=== PATIENT | female | born 1970 | race Caucasian/White ===

== ENCOUNTER 2022-08-16 11:49 | Outpatient (OUT) | payer OTHER, SELFPAY | END 2022-08-16 11:50 | PROVIDERS: PCP Nurse Practitioner; Visit Provider Nurse Practitioner | DX: G47.33 Obstructive sleep apnea (adult) (pediatric) (principal) | CPT/HCPCS: 95806 ==

== ENCOUNTER 2023-02-25 08:00 | Outpatient (OUT) | payer OTHER, SELFPAY ==
[2023-02-25 08:23] LABS: Basophils Absolute Auto 0.1 10^3/uL (0.0-0.1); Basophils Percent Auto 1.4 % (0.2-2.0); Eosinophils Absolute Auto 0.3 10^3/uL (0.0-0.7); Eosinophils Percent Auto 4.6 % (0.9-7.0); Hematocrit 40.2 % (36.0-48.0); Hemoglobin 12.9 g/dL (12.0-16.0); Immature Granulocytes Abs Auto 0.01 10^3/uL (0.00-0.03); Immature Granulocytes Pct Auto 0.2 % (0.0-0.5); Lymphocytes Absolute Auto 3.1 10^3/uL (1.2-3.8); Lymphocytes Percent Auto 52.4 % (20.5-60.0); Mean Corpuscular HGB Conc 32.1 g/dL (29.9-35.2); Mean Corpuscular Hemoglobin 31.3 pg (26.7-34.0); Mean Corpuscular Volume 97.6 fL (81.0-99.0); Mean Platelet Volume 10.8 fL (9.5-13.5); Monocytes Absolute Auto 0.5 10^3/uL (0.3-0.8); Monocytes Percent Auto 9.2 % (1.7-12.0); Neutrophils Absolute Auto 1.9 10^3/uL (1.4-6.5); Neutrophils Percent Auto 32.2 % (43.0-75.0); Platelet Count 254 10^3/uL (150-450); Red Blood Count 4.12 10^6/uL (4.20-5.40); Red Cell Distribution Width 12.3 % (11.0-15.0); White Blood Count 5.9 10^3/uL (4.0-11.0)
[2023-02-25 08:40] LABS: Bilirubin Urine SMALL (NEGATIVE); Blood Urine NEGATIVE (NEGATIVE); Clarity Urine CLEAR (CLEAR); Color Urine YELLOW (YELLOW); Glucose Urine UA NEGATIVE (NEGATIVE); Ketones Urine TRACE mg/dL (NEGATIVE); Leukocyte Esterase Urine NEGATIVE (NEGATIVE); Nitrite Urine NEGATIVE (NEGATIVE); Protein Urine NEGATIVE (NEG/TRACE); pH Urine 5.5 (5.0-9.0)
[2023-02-25 08:42] LABS: Urine Microscopic Indicated NO
[2023-02-25 09:25] LABS: Alanine Aminotransferase 25 U/L (14-59); Albumin Level 3.6 g/dL (3.4-5.0); Alkaline Phosphatase 71 U/L (46-116); Aspartate Amino Transferase 18 U/L (15-37); BUN Creatinine Ratio 18.7; Bilirubin Total 0.4 mg/dL (0.2-1.0); Calcium 8.9 mg/dL (8.5-10.1); Carbon Dioxide 30.1 mmol/L (21.0-32.0); Chloride 104 mmol/L (98-107); Chol HDL Ratio 2.3; Cholesterol 148 mg/dL (<=200); Estimated GFR (African America >60 (>=60); Estimated GFR (Non-African Ame >60 (>=60); Globulin 3.6 g/dL; Glucose 89 mg/dL (74-106); HDL Cholesterol 63 mg/dL (40-60); Potassium 4.1 mmol/L (3.5-5.1); Sodium 143 mmol/L (136-145); TSH W/ REFLEX FT4 0.525 (0.358-3.740); Total Protein 7.2 g/dL (6.4-8.2); Triglycerides 222 mg/dL (<=150); Uric Acid 3.2 mg/dL (2.6-6.0); VLDL CHOLESTEROL 44.4 mg/dL
== END 2023-02-25 08:01 | disposition home or self-care (01) ==
LOC: LAB 08:03
PROVIDERS: PCP Nurse Practitioner; Visit Provider Nurse Practitioner
DX: I25.10 Atherosclerotic heart disease of native coronary artery without angina pectoris (principal); M10.00 Idiopathic gout, unspecified site; I10 Essential (primary) hypertension; E03.9 Hypothyroidism, unspecified
CPT/HCPCS: 36415; 80053; 80061; 81003; 84443; 84550; 85025

== ENCOUNTER 2023-05-26 13:35 | Outpatient (OUT) | payer OTHER, SELFPAY ==
--- NOTE | 2023-05-26 14:00 | CA_ITS ---
Patient Name: CHRISTIANO MENDOZA MR#: [id number] : 1970 Exam Date: 05/26/2023 Ordering Doctor: DEREK Lester CNP ECHOCARDIOGRAM REPORT PROCEDURE: CA ECHO DOPPLER COMPLETE INDICATIONS: Uncontrolled hypertension, CABGx1, [place] x 2, former smoker COMPARISON: None. DESCRIPTION: COMPLETE ECHOCARDIOGRAM Real-time transthoracic echocardiography with 2D, M-mode, spectral and color flow Doppler performed. QUALITY: 64 , 153#, BSA 1.75 m2, BP 172/90 Technically difficult due to poor acoustics. LEFT VENTRICLE: Normal chamber size. Normal left ventricular wall thickness. LV EF: Global left ventricular systolic function is normal; visually estimated ejection fraction is 60 to 65%. Unable to assess regional wall motion abnormalities; consider contrast study for better delineation of endocardial borders. DIASTOLIC: Normal diastolic function. ATRIAL SEPTUM: Visually appears intact. LEFT ATRIUM: Normal chamber size. RIGHT ATRIUM: Normal chamber size. RIGHT VENTRICLE: Poorly seen. Normal chamber size. Right ventricular systolic function appears reduced. TRICUSPID VALVE: Normal mobility and thickness. No stenosis with trivial regurgitation. MITRAL VALVE: Normal mobility and thickness. No evidence of mitral valve stenosis. There is no mitral annular calcification. No mitral regurgitation. AORTIC VALVE: Normal trileaflet appearance. No visible sclerosis. Normal leaflet mobility. No evidence of aortic valve stenosis. No aortic regurgitation. AORTIC ROOT: Normal diameter and appearance. PULMONIC VALVE: Normal thickness and mobility. No stenosis. No regurgitation. PERICARDIUM: No evidence of pericardial effusion. IVC: Collapses with inspirations. CONCLUSION: 1. Global left ventricular systolic function is normal; visually estimated ejection fraction is 60 to 65% 2. The right ventricle is poorly seen; it appears normal in size with reduced systolic function 3. Normal diastolic function 4. Valves are poorly seen; no significant valvular abnormalities Adult Echocardiography Procedure Report Left Ventricle LVEDD (3.7 - 5.6 cm): 4.37 cm LVESD (2.2 - 4.0 cm): 2.88 cm LVIVS thickness (0.6 - 1.2 cm): 0.96 cm LVPW thickness (0.5 - 1.0 cm): 1.01 cm e': 0.10 m/s E - e': 3.62 LVOT Max Gradient: 2.82 mm[Hg] LVOT Area (cm2): 0.84 m/s Peak Velocity (LVOT): 0.84 m/s Mean Velocity (LVOT): 0.51 m/s LVOT Diameter 1.97 cm Left Atrium LA Volume Index (2D A2C): 24.45 ml/m2 Left Atrium Systolic Dimension: 3.50 cm Mitral Valve MV E to A Ratio: 0.76 Mitral Valve A-Wave Peak Velocity: 0.47 m/s Mitral Valve E-Wave Peak Velocity: 0.36 m/s Right Ventricle Aorta AO Root Diam: 3.06 cm Aortic Valve AoV Area (Peak Te): 2.73 cm2, 2.73 cm2 AoV Area (VTI): 2.56 cm2, 2.56 cm2 Peak Velocity(Antegrade Flow): 0.94 m/s Peak Gradient(Antegrade Flow): 3.53 mm[Hg] Mean Velocity(Antegrade Flow): 0.67 m/s Mean Gradient(Antegrade Flow): 1.98 mm[Hg] Velocity Time Integral: 19.76 cm Tricuspid Valve Pulmonic Valve Peak Velocity: 0.74 m/s Peak Gradient: 2.40 mm[Hg], 2.02 mm[Hg] Right Atrium Dictated by: Nino Zapata M.D. on 05/27/2023 at 14:39 Approved by: Nino Zapata M.D. on 05/27/2023 at 14:43
== END 2023-05-26 13:36 | disposition home or self-care (01) ==
LOC: CARD 13:36
PROVIDERS: PCP Nurse Practitioner; Visit Provider Nurse Practitioner
DX: I25.10 Atherosclerotic heart disease of native coronary artery without angina pectoris (principal); I10 Essential (primary) hypertension
CPT/HCPCS: 93306

== ENCOUNTER 2023-09-02 13:20 | Outpatient (OUT) | payer OTHER, SELFPAY ==
--- NOTE | 2023-09-02 | MR_ITS ---
The [address] [address] Patient Name: CHRISTIANO MENDOZA MRN: [id number] date: 1970 Sex: F Assigned Patient Location: MRI Current Patient Location: Accession/Order Number: [id number] Exam Date: 09/02/2023 14:05 Report Date: 09/05/2023 06:52 At the request of: LESLEY CHRIS Procedure: MR cervical spine wo con MR cervical spine wo con, 09/02/2023 2:05 PM EDT INDICATION: Cervical neck pain with evidence of disc disease COMPARISON: There is no appropriate prior study for comparison. TECHNIQUE: Multiplanar, multisequential MRI images of cervical spine were obtained without contrast. FINDINGS: There is loss of normal physiologic cervical lordosis. The vertebral heights are relatively preserved. The cervicomedullary junction is unremarkable. There is grade 1 anterolisthesis of C3 on C4 and mild retrolisthesis of C5 on C6. No definite signal abnormality within the spinal cord is noted. There are mild disc osteophyte complex associated with uncovertebral joint arthrosis from C3 to T1. No significant neuroforaminal narrowing or canal stenosis at the level of C2-C3 is noted. At the level of C3-C4, there is grade 1 anterolisthesis with severe right and mild left neuroforaminal narrowing and moderate canal stenosis. At the level of C4-C5, there is mild right and moderate left neuroforaminal narrowing and no canal stenosis. At the level of C5-C6, there is moderate bilateral neuroforaminal narrowing and mild canal stenosis. At the level of C6-C7, there is mild right neuroforaminal narrowing and no canal stenosis. Level of C7-T1, there is mild right neuroforaminal narrowing. No canal stenosis. No definite muscular or ligamentous injury is noted. MR/MR cervical spine wo con IMPRESSION: Mild to moderate degenerative changes of the cervical spine in particular at C3-C4 and C5-C6. Electronically authenticated by: BRANDY SAMPSON Date: 09/05/2023 06:52
--- OUTSIDE RECORDS SUMMARY | 2023-09-02 13:42 | XMS_ITS | CCD ---
Author Organization [facility] Care Team Providers Care Manager Infusion Name Role Phone AICHHOLZ, [employer] EQUALIZER LESLEY Admitting Unavailable AICHHOLZ, STAVE [employer] B[employer] EQUALIZER LESLEY Attending Unavailable AICHHOLZ, STAVE [employer] B[employer] EQUALIZER LESLEY Primary Care Unavailable AICHHOLZ, STAVE [employer] B[employer] EQUALIZER LESLEY Consulting Unavailable AICHHOLZ, STAVE AND BOLT EQUALIZER LESLEY Admitting Unavailable AICHHOLZ, STAVE AND BOLT EQUALIZER LESLEY Attending Unavailable AICHHOLZ, STAVE AND BOLT EQUALIZER LESLEY Primary Care Unavailable AICHHOLZ, STAVE AND BOLT EQUALIZER LESLEY Consulting Unavailable AICHHOLZ, STAVE AND BOLT EQUALIZER LESLEY Admitting Unavailable AICHHOLZ, STAVE AND BOLT EQUALIZER LESLEY Attending Unavailable AICHHOLZ, STAVE AND BOLT EQUALIZER LESLEY Primary Care Unavailable AICHHOLZ, STAVE AND B[employer] EQUALIZER LESLEY Consulting Unavailable AICHHOLZ, STAVE AND BOLT EQUALIZER LESLEY Admitting Unavailable AICHHOLZ, STAVE AND BOLT EQUALIZER LESLEY Attending Unavailable AICHHOLZ, STAVE AND BOLT EQUALIZER LESLEY Primary Care Unavailable AICHHOLZ, STAVE [employer] BOLT EQUALIZER LESLEY Consulting Unavailable [place] Attending Unavailable AICHHOLZ, LESLEY Attending Unavailable AICHHOLZ, LESLEY Attending Unavailable AICHHOLZ, LESLEY Attending Unavailable AICHHOLZ, LESLEY Attending Unavailable Allergies Allergy Classification Reported Allergen(s) Allergy Type Date of Onset Reaction(s) Facility (1 source) Desonide Drug Allergy 12-02-2012 [facility] Repository Problems Problem Classification Problem Date Documented Date Episodic/Chronic Coronary atherosclerosis and other heart disease (1 source) Atherosclerotic heart disease of [place] coronary artery without angina pectoris; Translations: [ASHD QAGAN TAYAGUNGIN CA W/O ANGINA PECTORIS] Onset: 01-26-2022 Chronic Disorders of lipid metabolism (5 sources) Pure hyperglyceridemia; Translations: [Hyperlipidemia, unspecified] Onset: 01-26-2022 Chronic Essential hypertension (4 sources) Essential (primary) hypertension; Translations: [ESSENTIAL PRIMARY HYPERTENSION] Onset: 01-22-2022 Chronic Gout and other crystal arthropathies (1 source) Gout, unspecified; Translations: [GOUT UNSPECIFIED] Onset: 01-26-2022 Chronic Malaise and fatigue (1 source) Other fatigue; Translations: [OTHER FATIGUE] Onset: 07-24-2022 Episodic Other nutritional; endocrine; and metabolic disorders (1 source) Overweight; Translations: [OVERWEIGHT] Onset: 07-24-2022 Episodic Thyroid disorders (5 sources) Hypothyroidism, unspecified; Translations: [HYPOTHYROIDISM UNSPECIFIED] Onset: 01-26-2022 Chronic Results Test Name Value Interpretation Reference Range Facil ity Office Visiton 06-08-2023 Follow-up visit [id number] Diane Canas 1970 F Date Provider Department Center 06/08/2023 Kira-MIAH [facility] Family History Problem Relation Age of Onset Coronary artery disease Father Family Status - Relation Status Age at Father Level of Service:03834 AR OFFICE/OUTPATIENT NEW LOW MDM 30 MINUTES Normal [facility] CBC AUTO DIFFon 07-22-2022 BASO # 0.1 103/ul Normal 0.0-0.1 [facility] Comment on above: Performed By: #### C BC #### [facility] [address] [place] [address] Dr. Candy Cortez Basophils/100 WBC (Bld) 0.6 % Normal 0.2-2.0 [facility] Comment on above: Performed By: #### C BC #### [facility] [address] [place] [address] Dr. Candy Cortez EO # 0.3 103/ul Normal 0.0-0.7 [facility] Comment on above: Performed By: #### C BC #### [facility] [address] [place] [address] Dr. Candy Cortez Eosinophils/100 WBC (Bld) 2.8 % Normal 0.9-7.0 [facility] Comment on above: Performed By: #### C BC #### [facility] [address] [place] [address] Dr. Candy Cortez Erythrocyte distribution width (RBC) [Ratio] 11.9 % Normal 11.0-15.0 [facility] Comment on above: Performed By: #### C BC #### [facility] [address] [place] [address] Dr. Candy Cortez Hematocrit (Bld) [Volume fraction] 39.5 % Normal 36.0-48.0 [facility] Comment on above: Performed By: #### C BC #### [facility] [address] [place] [address] Dr. Candy Cortez Hemoglobin (Bld) [Mass/Vol] 12.8 g/dL Normal 12.0-16.0 [facility] Comment on above: Performed By: #### C BC #### [facility] [address] [place] [address] Dr. Candy Cortez IG # 0.04 10e3/ul Critically high 0.00-0.03 [facility] Comment on above: Performed By: #### C BC #### [facility] [address] [place] [address] Dr. Candy Cortez IG % 0.4 % Normal 0.0-0.5 [facility] Comment on above: Performed By: #### C BC #### [facility] [address] [place] [address] Dr. Candy Cortez LYMPH # 3.2 103/ul Normal 1.2-3.8 [facility] Comment on above: Performed By: #### C BC #### [facility] [address] [place] [address] Dr. Candy Cortez Lymphocytes/100 WBC (Bld) 33.9 % Normal 20.5-60.0 [facility] Comment on above: Performed By: #### C BC #### [facility] [address] [place] [address] Dr. Candy Cortez MANUAL DIFF REQ NO Normal [facility] Comment on above: Performed By: #### C BC #### [facility] [address] [place] [address] Dr. Candy Cortez MCH (RBC) [Entitic mass] 31.3 pg Normal 26.7-34.0 [facility] Comment on above: Performed By: #### C BC #### [facility] [address] [place] [address] Dr. Candy Cortez MCHC (RBC) [Mass/Vol] 32.4 g/dL Normal 29.9-35.2 [facility] Comment on above: Performed By: #### C BC #### [facility] [address] [place] [address] Dr. Candy Cortez MCV (RBC) [Entitic vol] 96.6 fL Normal 81.0-99.0 [facility] Comment on above: Performed By: #### C BC #### [facility] [address] [place] [address] Dr. Candy Cortez MONO # 0.8 103/ul Normal 0.3-0.8 [facility] Comment on above: Performed By: #### C BC #### [facility] [address] [place] [address] Dr. Candy Cortez Monocytes/100 WBC (Bld) 8.3 % Normal 1.7-12.0 [facility] Comment on above: Performed By: #### C BC #### [facility] [address] [place] [address] Dr. Candy Cortez NEUT # 5.1 103/ul Normal 1.4-6.5 [facility] Comment on above: Performed By: #### C BC #### [facility] [address] [place] [address] Dr. Candy Cortez Neutrophils/100 WBC (Bld) 54.0 % Normal 43.0-75.0 [facility] Comment on above: Performed By: #### C BC #### [facility] [address] [place] [address] Dr. Candy Cortez Platelet mean volume (Bld) [Entitic vol] 11.6 fL Normal 9.5-13.5 [facility] Comment on above: Performed By: #### C BC #### [facility] [address] [place] [address] Dr. Candy Cortez PLT 258 103/ul Normal 150-450 [facility] Comment on above: Performed By: #### C BC #### [facility] [address] [place] [address] Dr. Candy Cortez RBC 4.09 106/ul Critically low 4.20-5.40 [facility] Comment on above: Performed By: #### C BC #### [facility] [address] [place] [address] Dr. Candy Cortez WBC 9.4 103/ul Normal 4.0-11.0 [facility] Comment on above: Performed By: #### C BC #### [facility] [address] [place] [address] Dr. Candy Cortez FREE T4on 07-22-2022 Free T4 [Mass/Vol] 0.91 ng/dL Normal 0.76-1.46 [facility] Comment on above: Performed By: #### T SH, URIC, CMP, LIPID #### [facility] [address] [place] [address] Dr. Candy Cortez IRONon 07-22-2022 Iron [Mass/Vol] 106.0 ug/dL Normal 50.0-170.0 [facility] Comment on above: Performed By: #### T SH, URIC, CMP, LIPID #### [facility] [address] [place] [address] Dr. Candy Cortez PROF 14(COMP METB)on 023 Albumin [Mass/Vol] 3.7 g/dL Normal 3.4-5.0 [facility] Comment on above: Performed By: #### T SH, CMP #### [facility] [address] [place] [address] Dr. Candy Cortez Albumin/Globulin [Mass ratio] 1.0 {ratio} Normal [facility] Comment on above: Performed By: #### T SH, CMP #### [facility] [address] [place] [address] Dr. Candy Cortez ALP [Catalytic activity/Vol] 84 U/L Normal 46-116 [facility] Comment on above: Performed By: #### T SH, CMP #### [facility] [address] [place] [address] Dr. Candy Cortez ALT [Catalytic activity/Vol] 36 U/L Normal 14-59 [facility] Comment on above: Performed By: #### T SH, CMP #### [facility] [address] [address] [address] Candy Cortez Anion gap [Moles/Vol] 11.6 mmol/L Normal [facility] Comment on above: Performed By: #### T SH, CMP #### [facility] [address] [address] [address] Candy Cortez AST [Catalytic activity/Vol] 30 U/L Normal 15-37 [facility] Comment on above: Performed By: #### T SH, CMP #### [facility] [address] [address] [address] Candy Cortez Bilirubin [Mass/Vol] 0.4 mg/dL Normal 0.2-1.0 [facility] Comment on above: Performed By: #### T SH, CMP #### [facility] [address] [place] [address] Dr. Candy Cortez Calcium [Mass/Vol] 9.4 mg/dL Normal 8.5-10.1 [facility] Comment on above: Performed By: #### T SH, CMP #### [facility] [address] [address] [address] Candy Cortez Chloride [Moles/Vol] 105 mmol/L Normal 98-107 [facility] Comment on above: Performed By: #### T SH, CMP #### [facility] [address] [place] [address] Dr. Candy Cortez CO2 [Moles/Vol] 29.2 mmol/L Normal 21.0-32.0 [facility] Comment on above: Performed By: #### T SH, CMP #### [facility] [address] [place] [address] Dr. Candy Cortez Creatinine [Mass/Vol] 0.78 mg/dL Normal 0.55-1.02 [facility] Comment on above: Performed By: #### T SH, CMP #### [facility] [address] [place] [address] Dr. Candy Cortez EGFR-AF SAUDI [place]AB[place] >60 Normal >=60 [facility] Comment on above: Performed By: #### T SH, CMP #### [facility] [address] [address] [address] Candy Cortez EGFR-NON AF [place]UDI [place]AB[place] >60 Normal >=60 [facility] Comment on above: Performed By: #### T SH, CMP #### [facility] [address] [address] [address] Candy Cortez Globulin (S) [Mass/Vol] 3.8 g/dL Normal [facility] Comment on above: Performed By: #### T SH, CMP #### [facility] [address] [address] [address] Candy Cortez Glucose [Mass/Vol] 95 mg/dL Normal 74-106 [facility] Comment on above: Performed By: #### T SH, CMP #### [facility] [address] [place] [address] Dr. Candy Cortez Potassium [Moles/Vol] 4.8 mmol/L Normal 3.5-5.1 [facility] Comment on above: Performed By: #### T SH, CMP #### [facility] [address] [place] [address] Dr. Candy Cortez Protein [Mass/Vol] 7.5 g/dL Normal 6.4-8.2 [facility] Comment on above: Performed By: #### T SH, CMP #### [facility] [address] [place] [address] Dr. Candy Cortez Sodium [Moles/Vol] 141 mmol/L Normal 136-145 [facility] Comment on above: Performed By: #### T SH, CMP #### [facility] [address] [place] [address] Dr. Candy Cortez Urea nitrogen [Mass/Vol] 13.0 mg/dL Normal 7.0-18.0 [facility] Comment on above: Performed By: #### T SH, CMP #### [facility] [address] [place] [address] Dr. Candy Cortez Urea nitrogen/Creatinin e [Mass ratio] 16.7 mg/mg Normal [facility] Comment on above: Performed By: #### T SH, CMP #### [facility] [address] [address] [address] Candy Cortez TSHon 07-22-2022 TSH 0.818 uIU/mL Normal 0.358-3.740 [facility] Comment on above: Performed By: #### T SH, CMP #### [facility] [address] [place] [address] Dr. Candy Cortez UA RANDOM W/MICROSCOPICon BACTERIA NONE SEEN Normal NONE SEEN [facility] Comment on above: Performed By: #### U AMIC #### [facility] [address] [place] [address] Dr. Candy Cortez Bilirubin Ql (U) Negative Normal NEGATIVE [facility] Comment on above: Performed By: #### U AMIC #### [facility] [address] [place] [address] Dr. Candy Cortez CAST NONE SEEN Normal NONE SEEN [facility] Comment on above: Performed By: #### U AMIC #### [facility] [address] [place] [address] Dr. Candy Cortez Clarity (U) CLEAR Normal CLEAR [facility] Comment on above: Performed By: #### U AMIC #### [facility] [address] [place] [address] Dr. Candy Cortez Color (U) LT. YELLOW Normal YELLOW [facility] Comment on above: Performed By: #### U AMIC #### [facility] [address] [address] [address] Candy Cortez Crystals LM Nom (Urine sed) NONE SEEN Normal NONE SEEN [facility] Comment on above: Performed By: #### U AMIC #### [facility] [address] [place] [address] Dr. Candy Cortez Epithelial cells LM Ql (Urine sed) RARE Normal NONE SEEN /RARE [facility] Comment on above: Performed By: #### U AMIC #### [facility] [address] [place] [address] Dr. Candy Cortez Glucose Ql (U) Negative Normal NEGATIVE [facility] Comment on above: Performed By: #### U AMIC #### [facility] [address] [address] [address] Candy Cortez Hemoglobin Ql (U) Negative Normal NEGATIVE [facility] Comment on above: Performed By: #### U AMIC #### [facility] [address] [address] [address] Candy Cortez Ketones Ql (U) Negative Normal NEGATIVE [facility] Comment on above: Performed By: #### U AMIC #### [facility] [address] [address] [address] Candy Cortez LEUKOCYTES Negative Normal NEGATIVE [facility] Comment on above: Performed By: #### U AMIC #### [facility] [address] [address] [address] Candy Cortez MUCOUS NONE SEEN Normal NONE SEEN [facility] Comment on above: Performed By: #### U AMIC #### [facility] [address] [address] [address] Candy Cortez Nitrite Ql (U) Negative Normal NEGATIVE [facility] Comment on above: Performed By: #### U AMIC #### [facility] [address] [address] [address] Candy Cortez pH (U) 7.0 [pH] Normal 5-9 [facility] Comment on above: Performed By: #### U AMIC #### [facility] [address] [address] [address] Candy Cortez RBC 0-2 Normal 0-2 [facility] Comment on above: Performed By: #### U AMIC #### [facility] [address] [address] [address] Candy Cortez SPEC GRAVITY <=1.005 Abnormal 1.005-<=1.025 [facility] Comment on above: Performed By: #### U AMIC #### [facility] [address] [address] [address] Candy Cortez UA PROTEIN Negative Normal NEGATIVE/ TRACE [facility] Comment on above: Performed By: #### U AMIC #### [facility] [address] [place] [address] Dr. Candy Cortez Urobilinogen Qn (U) 0.2 {Nicko'U}/dL Normal 0.2 - 1.0 [facility] Comment on above: Performed By: #### U AMIC #### [facility] [address] [address] [address] Candy Cortez WBC 0-2 Abnormal NONE SEEN [facility] Comment on above: Performed By: #### U AMIC #### [facility] [address] [place] [address] Dr. Candy Cortez VITAMIN B12on 07-22-2022 Cobalamin (Vitamin B12) [Mass/Vol] 201.0 pg/mL Normal 193.0-986.0 [facility] Comment on above: Performed By: #### T SH, URIC, CMP, LIPID #### [facility] [address] [place] [address] Dr. Candy Cortez VITAMIN D 25 OHon 07-22-2022 VIT D 25-OH 14.6 ng/mL Normal [facility] Comment on above: Performed By: #### T SH, URIC, CMP, LIPID #### [facility] [address] [place] [address] Dr. Candy Cortez VIT D RANGES SEE BELOW Normal [facility] Comment on above: Result Comment: <20 ng/mL Vit D deficient 20 - <30 ng/mL Vit D insufficient 30 - 100 ng/mL Vit D sufficient >100 ng/mL Potential Toxicity Performed By: #### T SH, URIC, CMP, LIPID #### [facility] [address] [place] [address] Dr. Candy Cortez LIPID PROFILEon 07-05-2022 CHOL-HDL RATIO NORM SEE BELOW Normal [facility] Comment on above: Result Comment: 3.3 - 4.4 LOW RISK 4.4 - 7.1 AVERAGE RISK 7.1 - 11.0 MODERATE RISK >11.0 HIGH RISK Performed By: #### T SH, URIC, CMP, LIPID #### [facility] [address] [place] [address] Dr. Candy Cortez Cholesterol [Mass/Vol] 162 mg/dL Normal <=200 [facility] Comment on above: Performed By: #### T SH, URIC, CMP, LIPID #### [facility] [address] [address] [address] Candy Cortez Cholesterol in HDL [Mass/Vol] 74 mg/dL Critically high 40-60 [facility] Comment on above: Performed By: #### T SH, URIC, CMP, LIPID #### [facility] [address] [address] [address] Candy Cortez Cholesterol in LDL [Mass/Vol] 54.8 mg/dL Normal [facility] Comment on above: Performed By: #### T SH, URIC, CMP, LIPID #### [facility] [address] [place] [address] Dr. Candy Cortez Cholesterol.total/ Cholesterol in HDL [Mass ratio] 2.2 {ratio} Normal [facility] Comment on above: Performed By: #### T SH, URIC, CMP, LIPID #### [facility] [address] [address] [address] Candy Cortez HDL NORMAL > or = 60 mg/dl - LOW CARDIOVASCULAR RISK <40 mg/dl - HIGH CARDIOVASCULAR RISK Normal [facility] Comment on above: Performed By: #### T SH, URIC, CMP, LIPID #### [facility] [address] [place] [address] Dr. Candy Cortez LDL CALC NORMAL SEE BELOW Normal [facility] Comment on above: Result Comment: <100 mg/dl OPTIMAL 100 - 129 mg/dl NEAR OR ABOVE OPTIMAL 130 - 159 mg/dl BORDERLINE HIGH 160 - 189 mg/dl HIGH >190 mg/dl VERY HIGH Performed By: #### T SH, URIC, CMP, LIPID #### [facility] [address] [address] [address] Candy Cortez Triglyceride [Mass/Vol] 166 mg/dL Critically high <=150 [facility] Comment on above: Performed By: #### T SH, URIC, CMP, LIPID #### [facility] [address] [address] [address] Candy Cortez VLDL CALC 33.2 mg/dL Normal [facility] Comment on above: Performed By: #### T SH, URIC, CMP, LIPID #### [facility] [address] [address] [address] Candy Flower 07-05-2022 AST [Catalytic activity/Vol] 32 U/L Normal 15-37 [facility] Comment on above: Performed By: #### T SH, URIC, CMP, LIPID #### [facility] [address] [address] [address] Candy Colby 07-05-2022 ALT [Catalytic activity/Vol] 52 U/L Normal 14-59 [facility] Comment on above: Performed By: #### T SH, URIC, CMP, LIPID #### [facility] [address] [place] [address] Dr. Candy Cortez LIPID PROFILEon 05-10-2022 CHOL-HDL RATIO NORM SEE BELOW Normal [facility] Comment on above: Result Comment: 3.3 - 4.4 LOW RISK 4.4 - 7.1 AVERAGE RISK 7.1 - 11.0 MODERATE RISK >11.0 HIGH RISK Performed By: #### T SH, URIC, CMP, LIPID #### [facility] [address] [address] [address] Candy Cortez Cholesterol [Mass/Vol] 178 mg/dL Normal <=200 [facility] Comment on above: Performed By: #### T SH, URIC, CMP, LIPID #### [facility] [address] [address] [address] Candy Cortez Cholesterol in HDL [Mass/Vol] 80 mg/dL Critically high 40-60 [facility] Comment on above: Performed By: #### T SH, URIC, CMP, LIPID #### [facility] [address] [address] [address] Candy Cortez Cholesterol in LDL [Mass/Vol] 43.4 mg/dL Normal [facility] Comment on above: Performed By: #### T SH, URIC, CMP, LIPID #### [facility] [address] [address] [address] Candy Cortez Cholesterol.total/ Cholesterol in HDL [Mass ratio] 2.2 {ratio} Normal [facility] Comment on above: Performed By: #### T SH, URIC, CMP, LIPID #### [facility] [address] [address] [address] Candy Cortez HDL NORMAL > or = 60 mg/dl - LOW CARDIOVASCULAR RISK <40 mg/dl - HIGH CARDIOVASCULAR RISK Normal [facility] Comment on above: Performed By: #### T SH, URIC, CMP, LIPID #### [facility] [address] [address] [address] Candy Cortez LDL CALC NORMAL SEE BELOW Normal [facility] Comment on above: Result Comment: <100 mg/dl OPTIMAL 100 - 129 mg/dl NEAR OR ABOVE OPTIMAL 130 - 159 mg/dl BORDERLINE HIGH 160 - 189 mg/dl HIGH >190 mg/dl VERY HIGH Performed By: #### T SH, URIC, CMP, LIPID #### [facility] [address] [place] [address] Dr. Candy Cortez Triglyceride [Mass/Vol] 273 mg/dL Critically high <=150 [facility] Comment on above: Performed By: #### T SH, URIC, CMP, LIPID #### [facility] [address] [place] [address] Dr. Candy Cortez VLDL CALC 54.6 mg/dL Normal [facility] Comment on above: Performed By: #### T SH, URIC, CMP, LIPID #### [facility] [address] [place] [address] Dr. Candy Cortez CBC AUTO DIFFon 01-22-2022 BASO # 0.1 103/ul Normal 0.0-0.1 [facility] Comment on above: Performed By: #### C BC #### [facility] [address] [place] [address] Dr. Candy Cortez Basophils/100 WBC (Bld) 1.2 % Normal 0.2-2.0 [facility] Comment on above: Performed By: #### C BC #### [facility] [address] [place] [address] Dr. aCndy Cortez EO # 0.2 103/ul Normal 0.0-0.7 [facility] Comment on above: Performed By: #### C BC #### [facility] [address] [place] [address] Dr. Candy Cortez Eosinophils/100 WBC (Bld) 2.8 % Normal 0.9-7.0 [facility] Comment on above: Performed By: #### C BC #### [facility] [address] [place] [address] Dr. Candy Cortez Erythrocyte distribution width (RBC) [Ratio] 12.2 % Normal 11.0-15.0 [facility] Comment on above: Performed By: #### C BC #### [facility] [address] [place] [address] Dr. Candy Cortez Hematocrit (Bld) [Volume fraction] 41.0 % Normal 36.0-48.0 [facility] Comment on above: Performed By: #### C BC #### [facility] [address] [place] [address] Dr. Candy Cortez Hemoglobin (Bld) [Mass/Vol] 13.6 g/dL Normal 12.0-16.0 [facility] Comment on above: Performed By: #### C BC #### [facility] [address] [place] [address] Dr. Candy Cortez IG # 0.00 10e3/ul Normal 0.00-0.03 [facility] Comment on above: Performed By: #### C BC #### [facility] [address] [place] [address] Dr. Candy Cortez IG % 0.0 % Normal 0.0-0.5 [facility] Comment on above: Performed By: #### C BC #### [facility] [address] [place] [address] Dr. Candy Cortez LYMPH # 2.7 103/ul Normal 1.2-3.8 [facility] Comment on above: Performed By: #### C BC #### [facility] [address] [place] [address] Dr. Candy Cortez Lymphocytes/100 WBC (Bld) 47.5 % Normal 20.5-60.0 [facility] Comment on above: Performed By: #### C BC #### [facility] [address] [place] [address] Dr. Candy Cortez MANUAL DIFF REQ NO Normal [facility] Comment on above: Performed By: #### C BC #### [facility] [address] [place] [address] Dr. Candy Cortez MCH (RBC) [Entitic mass] 32.5 pg Normal 26.7-34.0 [facility] Comment on above: Performed By: #### C BC #### [facility] [address] [place] [address] Dr. Candy Cortez MCHC (RBC) [Mass/Vol] 33.2 g/dL Normal 29.9-35.2 [facility] Comment on above: Performed By: #### C BC #### [facility] [address] [place] [address] Dr. Candy Cortez MCV (RBC) [Entitic vol] 97.9 fL Normal 81.0-99.0 [facility] Comment on above: Performed By: #### C BC #### [facility] [address] [place] [address] Dr. Candy Cortez MONO # 0.5 103/ul Normal 0.3-0.8 [facility] Comment on above: Performed By: #### C BC #### [facility] [address] [place] [address] Dr. Candy Cortez Monocytes/100 WBC (Bld) 8.4 % Normal 1.7-12.0 [facility] Comment on above: Performed By: #### C BC #### [facility] [address] [place] [address] Dr. Candy Cortez NEUT # 2.3 103/ul Normal 1.4-6.5 [facility] Comment on above: Performed By: #### C BC #### [facility] [address] [place] [address] Dr. Candy Cortez Neutrophils/100 WBC (Bld) 40.1 % Critically low 43.0-75.0 [facility] Comment on above: Performed By: #### C BC #### [facility] [address] [place] [address] Dr. Candy Cortez Platelet mean volume (Bld) [Entitic vol] 11.5 fL Normal 9.5-13.5 [facility] Comment on above: Performed By: #### C BC #### [facility] [address] [place] [address] Dr. Candy Cortez PLT 305 103/ul Normal 150-450 [facility] Comment on above: Performed By: #### C BC #### [facility] [address] [place] [address] Dr. Candy Cortez RBC 4.19 106/ul Critically low 4.20-5.40 [facility] Comment on above: Performed By: #### C BC #### [facility] [address] [place] [address] Dr. Candy Cortez WBC 5.7 103/ul Normal 4.0-11.0 [facility] Comment on above: Performed By: #### C BC #### [facility] [address] [place] [address] Dr. Candy Cortez FREE T4on 01-22-2022 Free T4 [Mass/Vol] 0.78 ng/dL Normal 0.76-1.46 [facility] Comment on above: Performed By: #### T SH, URIC, CMP, LIPID #### [facility] [address] [place] [address] Dr. Candy Cortez LIPID PROFILEon 01-22-2022 CHOL-HDL RATIO NORM SEE BELOW Normal [facility] Comment on above: Result Comment: 3.3 - 4.4 LOW RISK 4.4 - 7.1 AVERAGE RISK 7.1 - 11.0 MODERATE RISK >11.0 HIGH RISK Performed By: #### T SH, URIC, CMP, LIPID #### [facility] [address] [place] [address] Dr. Candy Cortez Cholesterol [Mass/Vol] 167 mg/dL Normal <=200 [facility] Comment on above: Performed By: #### T SH, URIC, CMP, LIPID #### [facility] [address] [place] [address] Dr. Candy Cortez Cholesterol in HDL [Mass/Vol] 64 mg/dL Critically high 40-60 [facility] Comment on above: Performed By: #### T SH, URIC, CMP, LIPID #### [facility] [address] [address] [address] Candy Cortez Cholesterol in LDL [Mass/Vol] 43.6 mg/dL Normal [facility] Comment on above: Performed By: #### T SH, URIC, CMP, LIPID #### [facility] [address] [address] [address] Candy Cortez Cholesterol.total/ Cholesterol in HDL [Mass ratio] 2.6 {ratio} Normal [facility] Comment on above: Performed By: #### T SH, URIC, CMP, LIPID #### [facility] [address] [place] [address] Dr. Candy Cortez HDL NORMAL > or = 60 mg/dl - LOW CARDIOVASCULAR RISK <40 mg/dl - HIGH CARDIOVASCULAR RISK Normal [facility] Comment on above: Performed By: #### T SH, URIC, CMP, LIPID #### [facility] [address] [place] [address] Dr. Candy Cortez LDL CALC NORMAL SEE BELOW Normal [facility] Comment on above: Result Comment: <100 mg/dl OPTIMAL 100 - 129 mg/dl NEAR OR ABOVE OPTIMAL 130 - 159 mg/dl BORDERLINE HIGH 160 - 189 mg/dl HIGH >190 mg/dl VERY HIGH Performed By: #### T SH, URIC, CMP, LIPID #### [facility] [address] [place] [address] Dr. Candy Crotez Triglyceride [Mass/Vol] 297 mg/dL Critically high <=150 [facility] Comment on above: Performed By: #### T SH, URIC, CMP, LIPID #### [facility] [address] [place] [address] Dr. Candy Cortez VLDL CALC 59.4 mg/dL Normal [facility] Comment on above: Performed By: #### T SH, URIC, CMP, LIPID #### [facility] [address] [place] [address] Dr. Candy Cortez PROF 14(COMP METB)on 022 Albumin [Mass/Vol] 3.6 g/dL Normal 3.4-5.0 [facility] Comment on above: Performed By: #### T SH, URIC, CMP, LIPID #### [facility] [address] [address] [address] Candy Cortez Albumin/Globulin [Mass ratio] 1.0 {ratio} Normal [facility] Comment on above: Performed By: #### T SH, URIC, CMP, LIPID #### [facility] [address] [address] [address] Candy Cortez ALP [Catalytic activity/Vol] 79 U/L Normal 46-116 [facility] Comment on above: Performed By: #### T SH, URIC, CMP, LIPID #### [facility] [address] [place] [address] Dr. Canyd Cortez ALT [Catalytic activity/Vol] 23 U/L Normal 14-59 [facility] Comment on above: Performed By: #### T SH, URIC, CMP, LIPID #### [facility] [address] [address] [address] Candy Cortez Anion gap [Moles/Vol] 9.7 mmol/L Normal [facility] Comment on above: Performed By: #### T SH, URIC, CMP, LIPID #### [facility] [address] [place] [address] Dr. Candy Cortez AST [Catalytic activity/Vol] 20 U/L Normal 15-37 [facility] Comment on above: Performed By: #### T SH, URIC, CMP, LIPID #### [facility] [address] [place] [address] Dr. Candy Cortez Bilirubin [Mass/Vol] 0.4 mg/dL Normal 0.2-1.0 [facility] Comment on above: Performed By: #### T SH, URIC, CMP, LIPID #### [facility] [address] [place] [address] Dr. Candy Cortez Calcium [Mass/Vol] 9.1 mg/dL Normal 8.5-10.1 [facility] Comment on above: Performed By: #### T SH, URIC, CMP, LIPID #### [facility] [address] [address] [address] Candy Cortez Chloride [Moles/Vol] 103 mmol/L Normal 98-107 [facility] Comment on above: Performed By: #### T SH, URIC, CMP, LIPID #### [facility] [address] [address] [address] Candy Cortez CO2 [Moles/Vol] 29.0 mmol/L Normal 21.0-32.0 [facility] Comment on above: Performed By: #### T SH, URIC, CMP, LIPID #### [facility] [address] [address] [address] Candy Cortez Creatinine [Mass/Vol] 0.72 mg/dL Normal 0.55-1.02 [facility] Comment on above: Performed By: #### T SH, URIC, CMP, LIPID #### [facility] [address] [address] [address] Candy Cortez EGFR-AF SAUDI ARABIAN >60 Normal >=60 [facility] Comment on above: Performed By: #### T SH, URIC, CMP, LIPID #### [facility] [address] [address] [address] Candy Cortez EGFR-NON AF SAUDI ARABIAN >60 Normal >=60 [facility] Comment on above: Performed By: #### T SH, URIC, CMP, LIPID #### [facility] [address] [address] [address] Candy Cortez Globulin (S) [Mass/Vol] 3.7 g/dL Normal [facility] Comment on above: Performed By: #### T SH, URIC, CMP, LIPID #### [facility] [address] [address] [address] Candy Cortez Glucose [Mass/Vol] 93 mg/dL Normal 74-106 [facility] Comment on above: Performed By: #### T SH, URIC, CMP, LIPID #### [facility] [address] [address] [address] Candy Cortez Potassium [Moles/Vol] 4.7 mmol/L Normal 3.5-5.1 [facility] Comment on above: Performed By: #### T SH, URIC, CMP, LIPID #### [facility] [address] [place] [address] Dr. Candy Cortez Protein [Mass/Vol] 7.3 g/dL Normal 6.4-8.2 [facility] Comment on above: Performed By: #### T SH, URIC, CMP, LIPID #### [facility] [address] [place] [address] Dr. Candy Cortez Sodium [Moles/Vol] 137 mmol/L Normal 136-145 [facility] Comment on above: Performed By: #### T SH, URIC, CMP, LIPID #### [facility] [address] [place] [address] Dr. Candy Cortez Urea nitrogen [Mass/Vol] 12.0 mg/dL Normal 7.0-18.0 [facility] Comment on above: Performed By: #### T SH, URIC, CMP, LIPID #### [facility] [address] [place] [address] Dr. Candy Cortez Urea nitrogen/Creatinin e [Mass ratio] 16.7 mg/mg Normal [facility] Comment on above: Performed By: #### T SH, URIC, CMP, LIPID #### [facility] [address] [place] [address] Dr. Candy Cortez TSHon 01-22-2022 TSH 0.748 uIU/mL Normal 0.358-3.740 [facility] Comment on above: Performed By: #### T SH, URIC, CMP, LIPID #### [facility] [address] [place] [address] Dr. Candy Cortez UA RANDOM W/MICROSCOPICon BACTERIA NONE SEEN Normal NONE SEEN [facility] Comment on above: Performed By: #### U AMIC #### [facility] [address] [place] [address] Dr. Candy Cortez Bilirubin Ql (U) Negative Normal NEGATIVE [facility] Comment on above: Performed By: #### U AMIC #### [facility] [address] [address] [address] Candy Cortez CAST NONE SEEN Normal NONE SEEN [facility] Comment on above: Performed By: #### U AMIC #### [facility] [address] [address] [address] Candy Cortez Clarity (U) CLEAR Normal CLEAR [facility] Comment on above: Performed By: #### U AMIC #### [facility] [address] [address] [address] Candy Cortez Color (U) LT. YELLOW Normal YELLOW [facility] Comment on above: Performed By: #### U AMIC #### [facility] [address] [address] [address] Candy Cortez Crystals LM Nom (Urine sed) NONE SEEN Normal NONE SEEN [facility] Comment on above: Performed By: #### U AMIC #### [facility] [address] [place] [address] Dr. Candy Cortez Epithelial cells LM Ql (Urine sed) RARE Normal NONE SEEN /RARE [facility] Comment on above: Performed By: #### U AMIC #### [facility] [address] [place] [address] Dr. Candy Cortez Glucose Ql (U) Negative Normal NEGATIVE [facility] Comment on above: Performed By: #### U AMIC #### [facility] [address] [place] [address] Dr. Candy Cortez Hemoglobin Ql (U) Negative Normal NEGATIVE [facility] Comment on above: Performed By: #### U AMIC #### [facility] [address] [place] [address] Dr. Candy Cortez Ketones Ql (U) Negative Normal NEGATIVE [facility] Comment on above: Performed By: #### U AMIC #### [facility] [address] [place] [address] Dr. Candy Cortez LEUKOCYTES Negative Normal NEGATIVE [facility] Comment on above: Performed By: #### U AMIC #### [facility] [address] [place] [address] Dr. Candy Cortez MUCOUS TRACE Abnormal NONE SEEN [facility] Comment on above: Performed By: #### U AMIC #### [facility] [address] [address] [address] Candy Cortez Nitrite Ql (U) Negative Normal NEGATIVE [facility] Comment on above: Performed By: #### U AMIC #### [facility] [address] [address] [address] Candy Cortez pH (U) 7.0 [pH] Normal 5-9 [facility] Comment on above: Performed By: #### U AMIC #### [facility] [address] [address] [address] Candy Cortez RBC NONE SEEN Abnormal 0-2 [facility] Comment on above: Performed By: #### U AMIC #### [facility] [address] [place] [address] Dr. Candy Cortez SPEC GRAVITY 1.020 Normal 1.005-<=1.025 [facility] Comment on above: Performed By: #### U AMIC #### [facility] [address] [place] [address] Dr. Candy Cortez UA PROTEIN Negative Normal NEGATIVE/ TRACE [facility] Comment on above: Performed By: #### U AMIC #### [facility] [address] [place] [address] Dr. Candy Cortez Urobilinogen Qn (U) 0.2 {Nicko'U}/dL Normal 0.2 - 1.0 [facility] Comment on above: Performed By: #### U AMIC #### [facility] [address] [place] [address] Dr. Candy Cortez WBC NONE SEEN Normal NONE SEEN [facility] Comment on above: Performed By: #### U AMIC #### [facility] [address] [place] [address] Dr. Candy Cortez URIC ACID SERUMon 01-22-2022 Urate [Mass/Vol] 3.1 mg/dL Normal 2.6-6.0 [facility] Comment on above: Performed By: #### T SH, URIC, CMP, LIPID #### [facility] [address] [place], [place] [address] Dr. Candy Cortez Encounters Encounter Date Encounter Type Care Provider Facility Start: 07-11-2023 End: 07-11-2023 ambulatory LESLEY AICHHOLZ Not Available Start: 06-08-2023 End: 06-08-2023 ambulatory [facility] Start: 05-30-2023 End: 05-30-2023 ambulatory LESLEY AICHHOLZ Not Available Start: 05-10-2023 End: 05-10-2023 ambulatory LESLEY AICHHOLZ Not Available Start: 02-07-2023 End: 02-07-2023 ambulatory LESLEY AICHHOLZ Not Available Start: 07-22-2022 End: 07-23-2022 ambulatory [employer] LESLEY AICHHOLZ Facility:[facility] Start: 07-05-2022 End: 07-06-2022 ambulatory [employer] LESLEY AICHHOLZ Facility:[facility] Start: 05-10-2022 End: 05-11-2022 ambulatory [employer] LESLEY AICHHOLZ Facility:[facility] Start: 01-22-2022 End: 01-23-2022 ambulatory [employer] LESLEY AICHHOLZ Facility:[facility] Payers Date Payer Category Payer Unknown [id number] 2.16.84 [id number] 1970 Unknown [id number] 2.16.84 [id number] 1971 Unknown [id number] 2.16.84 [id number] 1971 Unknown [id number] 2.16.84 [id number] 1971 Unknown [id number] 2.16.84 [id number] 1971 Unknown [id number] 2.16.84 [id number] 1971 Unknown [id number] 2.16.84 [id number] 1971 Unknown [id number] 1959 Unknown [id number] Progress note 06-08-2023 Note Date & Type Note Facility 06-08-2023 Note [facility] Cardiology Clinic Note Chief Complaint: New patient here to re-establish care. She was last seen in Mar 2017. Had echo 2 weeks ago, and routine labs in Feb 2023. She quit smoking 03/14/2023! C/o intermittent chest pain, SOB, and fatigue. HPI: Diane Canas is a 53 y.o. female who I performed a cardiac catheterization on when we were both 40 years old! Looking back at records, and talking to her, it was probable coronary vasospasm that led to a single-vessel left internal mammary artery graft to the left anterior descending. 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 There was superimposed spasm. She has been doing well since we last saw her. She has no anginal chest pain. She is currently being worked up for right neck pain that radiates to her right arm particularly when she is stressed. This sounds musculoskeletal and probably related to cervical disc disease. She denies exertional chest pain or worsening shortness of breath. No orthopnea, no paroxysmal failure dyspnea, no lower extremity edema. Family history: Her father suddenly at the age of 56. He has no documented history of myocardial infarction. Both her parents have hypertension. She is and between her and her they have 6 children. The eldest unfortunately committed suicide. She has 15 grandchildren. Cardiology ROS: Review of Systems Constitutional: Positive for malaise/fatigue. Cardiovascular: Positive for chest pain and dyspnea on exertion. Respiratory: Positive for shortness of breath. All other systems reviewed and are negative. Past Medical History She has no past medical history on file. Surgical History She has no past surgical history on file. Social History She has no history on file for tobacco use, alcohol use, and drug use. Family History No family history on file. Allergies Patient has no allergy information on record. Medications No current outpatient medications on file. Last Recorded Vitals BP (!) 138/94 (BP Location: Left arm, Patient Position: Sitting) Pulse 69 Ht 1.626 m (5' 4 ) Wt 72.1 kg (159 lb) SpO2 99% BMI 27.29 kg/m??? Physical Examination: GENERAL: alert and oriented x3, well developed, in no acute distress. HEAD: atraumatic, normocephalic. EYES: ANGELIQUE, EOMI. NECK: trachea midline, no JVD present, no carotid bruits present. CARDIAC: S1, S2 present. RRR. No murmur, rubs, or gallops. RESPIRATORY: CTAB, no increased effort of breathing, no rales, rhonchi, or wheezing. ABDOMEN: soft, nontender, nondistended. EXTREMITIES: no lower extremity edema, peripheral pulses are 2+ bilaterally. No rash/skin discoloration present. NEURO: strength/sensation equal and symmetric in bilateral upper and lower extremities. PSYCH: appropriate mood, affect, and judgement. INVESTIGATIONS: Labs 02/25/2023: LFTs are normal Cholesterol is 148, triglycerides are 222, LDL is 41, HDL is 63 Cardiac catheterization 05/14/2011 Final impressions: 1. Moderate, nonhemodynamically significant stenosis of the left anterior descending coronary artery 2. Evidence of coronary spasm resolved by intracoronary vasodilator 3. 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 Moderate systemic hypertension Recommendations: 1. Aggressive cardiovascular factor modification 2. Optimization medical management; add calcium channel jose plus or minus nitrates given probable coronary spasm 3. Consider future percutaneous revascularization of the left anterior descending versus redo coronary artery bypass grafting as clinically appropriate 4. Further recommendations deferred to the inpatient service Stress test 05/23/2021: Exercise stress test: Conclusion: Normal myocardial perfusion scan with no reversible ischemia Normal exercise test Echocardiogram 05/26/2023: Conclusion: 1. Global left ventricular systolic function is normal; visually estimated ejection fraction is 60 to 65% 2. Right ventricle is poorly seen; it appears normal in size with reduced systolic function 3. Normal diastolic function 4. 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 [facility] Summary Purpose Family History No Family History Records FoundNo Family History Records FoundNo Family History Records Found Advance Directives No Advanced Directives Records FoundNo Advanced Directives Records FoundNo Advanced Directives Records Found Additional Source Comments INFORMATION SOURCE (unrecogn ized section and content) DATE CREATED AUTHOR 07/25/2022 [facility] DATE CREATED AUTHOR AUTHOR'S ORGANIZ ATION 06/10/2023 [facility] DATE CREATED AUTHOR AUTHOR'S ORGANIZ ATION 07/12/2023 [facility] FOR RECORDS PERTAINING TO PATIENTS WHO ARE OR HAVE BEEN ENROLLED IN A CHEMICAL DEPENDENCY/SUBSTANCEABUSE PROGRAM, SOME INFORMATION MAY BE OMITTED. This clinical summary was aggregated from multiple sources. Caution should be exercised in using it in the provision of clinical care. This summary normalizes information from multiple sources, and as a consequence, information in this document may materially change the coding, format and clinical context of patient data. In addition, data may be omitted in some cases. CLINICAL DECISIONS SHOULD BE BASED ON THE PRIMARY CLINICAL RECORDS. [facility] [employer] [facility]. provides no warranty or guarantee of the accuracy or completeness of information in this document.
== END 2023-09-02 13:21 | disposition home or self-care (01) ==
LOC: MRI 13:20
PROVIDERS: PCP Nurse Practitioner; Visit Provider Nurse Practitioner
DX: M50.90 Cervical disc disorder, unspecified, unspecified cervical region (principal); M50.022 Cervical disc disorder at C5-C6 level with myelopathy; M50.01 Cervical disc disorder with myelopathy, high cervical region
CPT/HCPCS: 72141

== ENCOUNTER 2023-10-31 12:40 | Outpatient (OUT) | payer OTHER, SELFPAY ==
--- NOTE | 2023-10-31 14:17 | P.CN_ITS ---
Consult Note: HPI Data of Consult Patient: new to practice Consult date: 10/31/23 Requesting Physician: Nikki Gayle MD Primary Care Provider: Carmela Lester NP Consult Narrative Reason for consult: neck, right arm pain Narrative: [id number] who presents for evaluation. worsening pain that radiates from neck to right arm. imaging reviewed, significant for multilevel stenosis, worst at c3-4 and c5-6. has completed physical therapy 15 sessions in past month, without lasting benefit. uses otc pain meds, as needed. evaluated by neurosurgery, but they wanted her to attempt injection therapy first. denies adverse med side effects. cc:: CC: Nikki Gayle MD Review of Systems ROS Status of ROS 10 or more systems reviewed and unremark able except as noted in history and below Meds Home Medications and Allergies Allergies Allergy/AdvReac Type Severity Reaction Status Date / Time adhesive Allergy Rash Verified 10/31/23 14:06 Exam Narrative Exam Narrative: Psych-alert and oriented x 3.? Attentive and appropriate, constitutionally normal, displays normal mood and affect per situation.? There are no obvious deficits in memory, reasoning, or intellect.? Skin-no obvious rashes, bruising, or erythema noted to the patient's area of pain.? Extremities-upper extremities are warm with minimal edema and palpable pulses. Cervical- tenderness to palpation noted in the cervical spine and paraspinal musculature.? Pain is elicited with flexion, extension, and lateral rotation of the cervical spine.? Range of motion is diminished due to pain. Facet loading maneuvers are po sitive.? Strength-unremarkable and within normal limits with the exception to the right biceps. Sensory-no notable sensory deficits in the bilateral upper extremities to touch or pinprick with the exception to decreased sensation to the right C4, 5, 6 dermatomal distribution.? Coordination remains intact.? Gait remains non-antalgic. Assessment and Plan Assessment and Plan (1) Cervical stenosis of spinal canal: (2) Cervical radiculopathy: Plan 53yof who presents for evaluation. failed conservative measures, as noted. imaging reviewed, as noted. given symptoms and imaging, prudent to attempt right C3-4, C5-6 tfesi x2 under fluoroscopic guidance. she is in agreement. meds reviewed, no changes. follow up after procedure.
== END 2023-10-31 12:41 | disposition home or self-care (01) ==
PROVIDERS: PCP Nurse Practitioner; Visit Provider Anesthesiology
DX: M48.02 Spinal stenosis, cervical region (principal); M54.12 Radiculopathy, cervical region
CPT/HCPCS: G0463

== ENCOUNTER 2023-11-21 08:45 | Day surgery (SDC) | payer OTHER, SELFPAY ==
--- OUTSIDE RECORDS SUMMARY | 2023-11-21 08:49 | XMS_ITS | CCD ---
Author Organization [facility] Care Team Providers Care Insurance Administrator Name Role Phone AICHHOLZ, [employer] DEVELOPER CARMELA Admitting Unavailable AICHHOLZ, [employer] DEVELOPER CARMELA Attending Unavailable AICHHOLZ, [employer] DEVELOPER CARMELA Primary Care Unavailable AICHHOLZ, [employer] DEVELOPER CARMELA Consulting Unavailable AICHHOLZ, [employer] DEVELOPER CARMELA Admitting Unavailable AICHHOLZ, [employer] DEVELOPER CARMELA Attending Unavailable AICHHOLZ, [employer] DEVELOPER CARMELA Primary Care Unavailable AICHHOLZ, [employer] DEVELOPER CARMELA Consulting Unavailable AICHHOLZ, [employer] DEVELOPER CARMELA Admitting Unavailable AICHHOLZ, [employer] DEVELOPER CARMELA Attending Unavailable AICHHOLZ, [employer] DEVELOPER CARMELA Primary Care Unavailable AICHHOLZ, [employer] DEVELOPER CARMELA Consulting Unavailable AICHHOLZ, [employer] DEVELOPER CARMELA Admitting Unavailable AICHHOLZ, [employer] DEVELOPER CARMELA Attending Unavailable AICHHOLZ, [employer] DEVELOPER CARMELA Primary Care Unavailable AICHHOLZ, [employer] DEVELOPER CARMELA Consulting Unavailable [place] Attending Unavailable AICHHOLZ, CARMELA Attending Unavailable AICHHOLZ, CARMELA Attending Unavailable AICHHOLZ, CARMELA Attending Unavailable AICHHOLZ, CARMELA Attending Unavailable AICHHOLZ, CARMELA Attending Unavailable ASHUTOSH QUINTANA Attending Unavailable AICHHOLZ, CARMELA Referring Unavailable Aichholz, Carmela J Primary Care Provider [phone] ORLY Comer Attending Provider Carmela Lester Primary Care Unavailable Loly Comer Attending Unavailable Loly Comer Admitting Unavailable Irwin OLSON, Nikki Cantrell Attending Unavailable Allergies Allergy Classification Reported Allergen(s) Allergy Type Date of Onset Reaction(s) Facility (1 source) Desonide Drug Allergy 12-02-2012 [facility] Repository Medications Current Medications Medication Drug Class(es) Dates Sig (Normalized) Sig (Original) Allopurinol (3 sources) Xanthine Oxidase Inhibitor Start: 10-06-2023 Allopurinol Active MG PO October 06, 2023 12:00am aspirin 81 mg delayed release oral tablet (3 sources) Platelet Aggregation Inhibitor, Nonsteroidal Anti-inflammatory Drug Start: 10-06-2023 Aspirin (Adult Low Dose Aspirin) 81 mg tablet,delayed release (DR/EC) Active 81 MG PO Daily October 06, 2023 12:00am atorvastatin (3 sources) HMG-CoA Reductase Inhibitor Start: 10-06-2023 Atorvastatin Active MG PO October 06, 2023 12:00am ezetimibe 10 mg oral tablet (3 sources) Dietary Cholesterol Absorption Inhibitor Start: 10-06-2023 Ezetimibe Active MG PO October 06, 2023 12:00am gabapentin 300 mg oral capsule (3 sources) Anti-epileptic Agent Start: 10-06-2023 Gabapentin Active MG PO October 06, 2023 12:00am 24 hr isosorbide mononitrate 120 mg extended release oral tablet (3 sources) Nitrate Vasodilator Start: 10-06-2023 Isosorbide Mononitrate Active MG PO October 06, 2023 12:00am levothyroxine sodium 0.075 mg oral tablet (3 sources) l-Thyroxine Start: 10-06-2023 Levothyroxine Active MCG PO October 06, 2023 12:00am lisinopril 20 mg oral tablet (3 sources) Angiotensin Converting Enzyme Inhibitor Start: 10-06-2023 Lisinopril Active MG PO October 06, 2023 12:00am metoprolol tartrate 100 mg oral tablet (3 sources) beta-Adrenergic Sara Start: 10-06-2023 Metoprolol Tartrate Active MG PO October 06, 2023 12:00am tiZANidine 4 mg oral tablet (3 sources) Central alpha-2 Adrenergic Agonist Start: 10-06-2023 Tizanidine Active MG PO October 06, 2023 12:00am verapamil hydrochloride 80 mg oral tablet (3 sources) Calcium Channel Sara Start: 10-06-2023 Verapamil Active MG PO October 06, 2023 12:00am Problems Problem Classification Problem Date Documented Date Episodic/Chronic Coronary atherosclerosis and other heart disease (1 source) Atherosclerotic heart disease of [place] coronary artery without angina pectoris; Translations: [ASHD [place] W/O ANGINA PECTORIS] Onset: 01-26-2022 Chronic [...] Translations: [OTHER FATIGUE] Onset: 07-24-2022 Episodic Other connective tissue disease (2 sources) Pain in upper limb; Translations: [Pain in arm, unspecified] 10-06-2023 Episodic Other connective tissue disease (4 sources) Pain in arm, unspecified; Translations: [Pain in limb] 10-06-2023 Episodic Other nervous system disorders (2 sources) Ulnar neuropathy; Translations: [Lesion of ulnar nerve, unspecified upper limb] 10-06-2023 Chronic Other nervous system disorders (4 sources) Lesion of ulnar nerve, unspecified upper limb; Translations: [Lesion of ulnar nerve] 10-06-2023 Chronic Other nutritional; endocrine; and metabolic disorders (1 source) Overweight; Translations: [OVERWEIGHT] Onset: 07-24-2022 Episodic Spondylosis; intervertebral disc disorders; other back problems (9 sources) Cervical radiculopathy; Translations: [Radiculopathy, cervical region] Onset: 10-27-2023 10-06-2023 Episodic Thyroid disorders (5 sources) Hypothyroidism, unspecified; Translations: [HYPOTHYROIDISM UNSPECIFIED] Onset: 01-26-2022 Chronic Results Test Name Value Interpretation Reference Range Facil ity XR cerv spine AP/LAT/FLX/EXT on 10-27-2023 XR cerv spine AP/LAT/FLX/[place] [address] XRay Report Signed Patient: Diane Canas MR#: [id number] 98 : 1970 Acct:[id number] Age/Sex: 53 / F ADM Date: 10/27/23 Loc: XD Room: Type: [facility] Attending Dr: Loly Comer APRN Copies to: Loly Comer APRN Ordering Provider: Loly Comer APRN Date of Service: 10/27/23 XR/XR cerv spine AP/LAT/FLX/EXT: M54.2 - Cervicalgia AP with lateral neutral, flexion extension viewscervical spine HISTORY: Right neck pain with radiation of the right arm COMPARISON: None POSTOPERATIVE CHANGES: None BONY ALIGNMENT: Straightening HYPERMOBILITY::No hypermobility LISTHESIS:4 mm L3-4 and 4 mm L4-5 degenerative anterolisthesis. FRACTURE: None DISC DEGENERATION: Extensive C5-6 spondylosis. Moderate C3-4 C4-5 spondylosis. Moderate C6-7 spondylosis. FACETS: Multilevel facet degeneration. FORAMEN: Unremarkable. DENS: Intact CRANIOCERVICAL JUNCTION: Unremarkable SOFT TISSUES: Unremarkable XR/XR cerv spine AP/LAT/FLX/EXT IMPRESSION: No hypermobility. L3-4 and L4-5 mild degenerative anterolisthesis. Multilevel spondylosis most extensive at the C5-6 level. Impression dictated by: Dank Camara M.D.10/27/2023 4:13 PM Dictation Location: [place] [address] Transcribed By: [facility] 10/27/23 161 Dictated By: Dank Camara DO 10/27/23 1611 Signed By: 10/27/23 1613 Normal [facility] Office Visiton 06-08-2023 Follow-up visit [id number] Diane Canas 1970 F Date Provider Department Center 06/08/2023 [id number] THOMPSON [facility] Family History Problem Relation Age of Onset Coronary artery disease Father Family Status - Relation Status Age at Father Level of Service:75561 SD OFFICE/OUTPATIENT NEW LOW MDM 30 MINUTES Normal [facility] CBC AUTO DIFFon 07-22-2022 BASO # 0.1 103/ul Normal 0.0-0.[address] [facility] Comment on above: Performed By: #### C BC #### [facility] [address] [address] [address] Candy Cortez Basophils/100 WBC (Bld) 0.6 % Normal 0.2-2.[address] [facility] Comment on above: Performed By: #### C BC #### [facility] [address] [place] [address] Dr. Candy Cortez EO # 0.3 103/ul Normal 0.0-0.[address] [facility] Comment on above: Performed By: #### C BC #### [facility] [address] [place] [address] Dr. Candy Cortez Eosinophils/100 WBC (Bld) 2.8 % Normal 0.9-7.[address] [facility] Comment on above: Performed By: #### C BC #### [facility] [address] [place] [address] Dr. Candy Cortez Erythrocyte distribution width (RBC) [Ratio] 11.9 % Normal 11.0-15.[address] [facility] Comment on above: Performed By: #### C BC #### [facility] [address] [place] [address] Dr. Candy Cortez Hematocrit (Bld) [Volume fraction] 39.5 % Normal 36.0-48.[address] [facility] Comment on above: Performed By: #### C BC #### [facility] [address] [place] [address] Dr. Candy Cortez Hemoglobin (Bld) [Mass/Vol] 12.8 g/dL Normal 12.0-16.[address] [facility] Comment on above: Performed By: #### C BC #### [facility] [address] [place] [address] Dr. Candy Cortez IG # 0.04 10e3/ul Critically high 0.00-0.03 [facility] Comment on above: Performed By: #### C BC #### [facility] [address] [place] [address] Dr. Candy Cortez IG % 0.4 % Normal 0.0-0.[address] [facility] Comment on above: Performed By: #### C BC #### [facility] [address] [place] [address] Dr. Candy Cortez LYMPH # 3.2 103/ul Normal 1.2-3.[address] [facility] Comment on above: Performed By: #### C BC #### [facility] [address] [place] [address] Dr. Candy Cortez Lymphocytes/100 WBC (Bld) 33.9 % Normal 20.5-60.[address] [facility] Comment on above: Performed By: #### C BC #### [facility] [address] [place] [address] Dr. Candy Cortez MANUAL DIFF REQ NO Normal [facility] Comment on above: Performed By: #### C BC #### [facility] [address] [place] [address] Dr. Candy Cortez MCH (RBC) [Entitic mass] 31.3 pg Normal 26.7-34.0 [facility] Comment on above: Performed By: #### C BC #### [facility] [address] [place] [address] Dr. Candy Cortez MCHC (RBC) [Mass/Vol] 32.4 g/dL Normal 29.9-35.2 [facility] Comment on above: Performed By: #### C BC #### [facility] [address] [place] [address] Dr. Candy Cortez MCV (RBC) [Entitic vol] 96.6 fL Normal 81.0-99.0 [facility] Comment on above: Performed By: #### C BC #### [facility] [address] [place] [address] Dr. Candy Cortez MONO # 0.8 103/ul Normal 0.3-0.8 [facility] Comment on above: Performed By: #### C BC #### [facility] [address] [place] [address] Dr. Candy Cortez Monocytes/100 WBC (Bld) 8.3 % Normal 1.7-12.0 [facility] Comment on above: Performed By: #### C BC #### [facility] [address] [place] [address] Dr. Candy Cortez NEUT # 5.1 103/ul Normal 1.4-6.5 [facility] Comment on above: Performed By: #### C BC #### [facility] [address] [address] [address] Candy Cortez Neutrophils/100 WBC (Bld) 54.0 % Normal 43.0-75.[address] [facility] Comment on above: Performed By: #### C BC #### [facility] [address] [place] [address] Dr. Candy Cortez Platelet mean volume (Bld) [Entitic vol] 11.6 fL Normal 9.5-13.[address] [facility] Comment on above: Performed By: #### C BC #### [facility] [address] [place] [address] Dr. Candy Cortez PLT 258 103/ul Normal 150-450 [facility] Comment on above: Performed By: #### C BC #### [facility] [address] [place] [address] Dr. Candy Cortez RBC 4.09 106/ul Critically low 4.20-5.40 [facility] Comment on above: Performed By: #### C BC #### [facility] [address] [place] [address] Dr. Candy Cortez WBC 9.4 103/ul Normal 4.0-11.0 [facility] Comment on above: Performed By: #### C BC #### [facility] [address] [place] [address] Dr. Candy Cortez FREE T4on 07-22-2022 Free T4 [Mass/Vol] 0.91 ng/dL Normal 0.76-1.[address] [facility] Comment on above: Performed By: #### T SH, URIC, CMP, LIPID #### [facility] [address] [place] [address] Dr. Candy Cortez IRONon 07-22-2022 Iron [Mass/Vol] 106.0 ug/dL Normal 50.0-170.0 [facility] Comment on above: Performed By: #### T SH, URIC, CMP, LIPID #### [facility] [address] [place] [address] Dr. Candy Cortez PROF 14(COMP METB)on 023 Albumin [Mass/Vol] 3.7 g/dL Normal 3.4-5.0 [facility] Comment on above: Performed By: #### T SH, CMP #### [facility] [address] [address] [address] Candy Cortez Albumin/Globulin [Mass ratio] 1.0 {ratio} Normal [facility] Comment on above: Performed By: #### T SH, CMP #### [facility] [address] [address] [address] Candy Cortez ALP [Catalytic activity/Vol] 84 U/L Normal 46-[address] [facility] Comment on above: Performed By: #### T SH, CMP #### [facility] [address] [address] [address] Candy Cortez ALT [Catalytic activity/Vol] 36 U/L Normal 14-[address] [facility] Comment on above: Performed By: #### T CRISS, CMP #### [facility] [address] [place] [address] Dr. Candy Cortez Anion gap [Moles/Vol] 11.6 mmol/L Normal [facility] Comment on above: Performed By: #### T SH, CMP #### [facility] [address] [place] [address] Dr. Candy Cortez AST [Catalytic activity/Vol] 30 U/L Normal 15-[address] [facility] Comment on above: Performed By: #### T CRISS, CMP #### [facility] [address] [place] [address] Dr. Candy Cortez Bilirubin [Mass/Vol] 0.4 mg/dL Normal 0.2-1.[address] [facility] Comment on above: Performed By: #### T SH, CMP #### [facility] [address] [address] [address] Candy Cortez Calcium [Mass/Vol] 9.4 mg/dL Normal 8.5-10.[address] [facility] Comment on above: Performed By: #### T CRISS, CMP #### [facility] [address] [address] [address] Candy Cortez Chloride [Moles/Vol] 105 mmol/L Normal 98-107 [facility] Comment on above: Performed By: #### T SH, CMP #### [facility] [address] [address] [address] Candy Cortez CO2 [Moles/Vol] 29.2 mmol/L Normal 21.0-32.0 [facility] Comment on above: Performed By: #### T SH, CMP #### [facility] [address] [address] [address] Candy Cortez Creatinine [Mass/Vol] 0.78 mg/dL Normal 0.55-1.02 [facility] Comment on above: Performed By: #### T SH, CMP #### [facility] [address] [address] [address] Candy Cortez EGFR-AF GIBRALTARIAN >60 Normal >=60 [facility] Comment on above: Performed By: #### T SH, CMP #### [facility] [address] [address] [address] Candy Cortez EGFR-NON AF GIBRALTARIAN >60 Normal >=60 [facility] Comment on above: Performed By: #### T SH, CMP #### [facility] [address] [address] [address] Candy Cortez Globulin (S) [Mass/Vol] 3.8 g/dL Normal [facility] Comment on above: Performed By: #### T SH, CMP #### [facility] [address] [address] [address] Candy Cortez Glucose [Mass/Vol] 95 mg/dL Normal 74-[address] [facility] Comment on above: Performed By: #### T SH, CMP #### [facility] [address] [address] [address] Candy Cortez Potassium [Moles/Vol] 4.8 mmol/L Normal 3.5-5.1 [facility] Comment on above: Performed By: #### T SH, CMP #### [facility] [address] [address] [address] Candy Cortez Protein [Mass/Vol] 7.5 g/dL Normal 6.4-8.[address] [facility] Comment on above: Performed By: #### T SH, CMP #### [facility] [address] [address] [address] Candy Cortez Sodium [Moles/Vol] 141 mmol/L Normal 136-145 [facility] Comment on above: Performed By: #### T SH, CMP #### [facility] [address] [place] [address] Dr. Candy Cortez Urea nitrogen [Mass/Vol] 13.0 mg/dL Normal 7.0-18.[address] [facility] Comment on above: Performed By: #### T SH, CMP #### [facility] [address] [place] [address] Dr. Candy Cortez Urea nitrogen/Creatinin e [Mass ratio] 16.7 mg/mg Normal [facility] Comment on above: Performed By: #### T SH, CMP #### [facility] [address] [place] [address] Dr. Candy Cortez TSHon 07-22-2022 TSH 0.818 uIU/mL Normal 0.358-3.740 [facility] Comment on above: Performed By: #### T SH, CMP #### [facility] [address] [place] [address] Dr. Candy Cortez UA RANDOM W/MICROSCOPICon BACTERIA NONE SEEN Normal NONE SEEN [facility] Comment on above: Performed By: #### U AMIC #### [facility] [address] [place] [address] Dr. Candy Cortez Bilirubin Ql (U) Negative Normal NEGATIVE [facility] Comment on above: Performed By: #### U AMIC #### [facility] [address] [place] [address] Dr. Candy Cortez CAST NONE SEEN Normal NONE SEEN [facility] Comment on above: Performed By: #### U AMIC #### [facility] [address] [place] [address] Dr. Candy Cortez Clarity (U) CLEAR Normal CLEAR [facility] Comment on above: Performed By: #### U AMIC #### [facility] [address] [address] [address] Candy Cortez Color (U) LT. YELLOW Normal YELLOW [facility] Comment on above: Performed By: #### U AMIC #### [facility] [address] [address] [address] Candy Cortez Crystals LM Nom (Urine sed) NONE SEEN Normal NONE SEEN [facility] Comment on above: Performed By: #### U AMIC #### [facility] [address] [address] [address] Candy Cortez Epithelial cells LM Ql (Urine sed) RARE Normal NONE SEEN /RARE [facility] Comment on above: Performed By: #### U AMIC #### [facility] [address] [place] [address] Dr. Candy Cortez Glucose Ql (U) Negative Normal NEGATIVE [facility] Comment on above: Performed By: #### U AMIC #### [facility] [address] [place] [address] Dr. Candy Cortez Hemoglobin Ql (U) Negative Normal NEGATIVE [facility] Comment on above: Performed By: #### U AMIC #### [facility] [address] [address] [address] Candy Cortez Ketones Ql (U) Negative Normal NEGATIVE [facility] Comment on above: Performed By: #### U AMIC #### [facility] [address] [place] [address] Dr. Candy Cortez LEUKOCYTES Negative Normal NEGATIVE [facility] Comment on above: Performed By: #### U AMIC #### [facility] [address] [place] [address] Dr. Candy Cortez MUCOUS NONE SEEN Normal NONE SEEN [facility] Comment on above: Performed By: #### U AMIC #### [facility] [address] [place] [address] Dr. Candy Cortez Nitrite Ql (U) Negative Normal NEGATIVE [facility] Comment on above: Performed By: #### U AMIC #### [facility] [address] [address] [address] Candy Cortez pH (U) 7.0 [pH] Normal 5-9 [facility] Comment on above: Performed By: #### U AMIC #### [facility] [address] [address] [address] Candy Cortez RBC 0-2 Normal 0-2 [facility] Comment on above: Performed By: #### U AMIC #### [facility] [address] [address] [address] Candy Cortez SPEC GRAVITY <=1.005 Abnormal 1.005-<=1.025 [facility] Comment on above: Performed By: #### U AMIC #### [facility] [address] [address] [address] Candy Cortez UA PROTEIN Negative Normal NEGATIVE/ TRACE [facility] Comment on above: Performed By: #### U AMIC #### [facility] [address] [place] [address] Dr. Candy Cortez Urobilinogen Qn (U) 0.2 {Nicko'U}/dL Normal 0.2 - 1.[address] [facility] Comment on above: Performed By: #### U AMIC #### [facility] [address] [address] [address] Candy Cortez WBC 0-2 Abnormal NONE SEEN [facility] Comment on above: Performed By: #### U AMIC #### [facility] [address] [place] [address] Dr. Candy Cortez VITAMIN B12on 07-22-2022 Cobalamin (Vitamin B12) [Mass/Vol] 201.0 pg/mL Normal 193.0-986.[address] [facility] Comment on above: Performed By: #### T SH, URIC, CMP, LIPID #### [facility] [address] [address] [address] Candy Cortez VITAMIN D 25 OHon 07-22-2022 VIT D 25-OH 14.6 ng/mL Normal [facility] Comment on above: Performed By: #### T SH, URIC, CMP, LIPID #### [facility] [address] [place] [address] Dr. Candy Cortez VIT D RANGES SEE BELOW Normal [facility] Comment on above: Result Comment: <20 ng/mL Vit D deficient 20 - <30 ng/mL Vit D insufficient 30 - 100 ng/mL Vit D sufficient >100 ng/mL Potential Toxicity Performed By: #### T SH, URIC, CMP, LIPID #### [facility] [address] [address] [address] Candy Cortez LIPID PROFILEon 07-05-2022 CHOL-HDL RATIO NORM SEE BELOW Normal [facility] Comment on above: Result Comment: 3.3 - 4.4 LOW RISK 4.4 - 7.1 AVERAGE RISK 7.1 - 11.0 MODERATE RISK >11.0 HIGH RISK Performed By: #### T SH, URIC, CMP, LIPID #### [facility] [address] [place] [address] Dr. Candy Cortez Cholesterol [Mass/Vol] 162 mg/dL Normal <=[address] [facility] Comment on above: Performed By: #### T SH, URIC, CMP, LIPID #### [facility] [address] [address] [address] Candy Cortez Cholesterol in HDL [Mass/Vol] 74 mg/dL Critically high 40-[address] [facility] Comment on above: Performed By: #### T SH, URIC, CMP, LIPID #### [facility] [address] [place] [address] Dr. Candy Cortez Cholesterol in LDL [Mass/Vol] 54.8 mg/dL Normal [facility] Comment on above: Performed By: #### T SH, URIC, CMP, LIPID #### [facility] [address] [address] [address] Candy Cortez Cholesterol.total/ Cholesterol in HDL [Mass ratio] 2.2 {ratio} Normal [facility] Comment on above: Performed By: #### T SH, URIC, CMP, LIPID #### [facility] [address] [place] [address] Dr. Candy Cortez HDL NORMAL > or = 60 mg/dl - LOW CARDIOVASCULAR RISK <40 mg/dl - HIGH CARDIOVASCULAR RISK Normal [facility] Comment on above: Performed By: #### T SH, URIC, CMP, LIPID #### [facility] [address] [address] [address] Candy Cortez LDL CALC NORMAL SEE BELOW Normal [facility] Comment on above: Result Comment: <100 mg/dl OPTIMAL 100 - 129 mg/dl NEAR OR ABOVE OPTIMAL 130 - 159 mg/dl BORDERLINE HIGH 160 - 189 mg/dl HIGH >190 mg/dl VERY HIGH Performed By: #### T SH, URIC, CMP, LIPID #### [facility] [address] [address] [address] Candy Cortez Triglyceride [Mass/Vol] 166 mg/dL Critically high <=[address] [facility] Comment on above: Performed By: #### T SH, URIC, CMP, LIPID #### [facility] [address] [place] [address] Dr. Candy Cortez VLDL CALC 33.2 mg/dL Normal [facility] Comment on above: Performed By: #### T SH, URIC, CMP, LIPID #### [facility] [address] [place] [address] Dr. Candy HUSTONOToshahnaz 07-05-2022 AST [Catalytic activity/Vol] 32 U/L Normal 15-37 [facility] Comment on above: Performed By: #### T SH, URIC, CMP, LIPID #### [facility] [address] [place] [address] Dr. Candy Cortez SGPTon 07-05-2022 ALT [Catalytic activity/Vol] 52 U/L Normal 14-[address] [facility] Comment on above: Performed By: #### T SH, URIC, CMP, LIPID #### [facility] [address] [place] [address] Dr. Candy Cortez LIPID PROFILEon 05-10-2022 CHOL-HDL RATIO NORM SEE BELOW Normal [facility] Comment on above: Result Comment: 3.3 - 4.4 LOW RISK 4.4 - 7.1 AVERAGE RISK 7.1 - 11.0 MODERATE RISK >11.0 HIGH RISK Performed By: #### T SH, URIC, CMP, LIPID #### [facility] [address] [place] [address] Dr. Candy Cortez Cholesterol [Mass/Vol] 178 mg/dL Normal <=[address] [facility] Comment on above: Performed By: #### T SH, URIC, CMP, LIPID #### [facility] [address] [address] [address] Candy Cortez Cholesterol in HDL [Mass/Vol] 80 mg/dL Critically high 40-[address] [facility] Comment on above: Performed By: #### T SH, URIC, CMP, LIPID #### [facility] [address] [address] [address] Candy Cortez Cholesterol in LDL [Mass/Vol] 43.4 mg/dL Normal [facility] Comment on above: Performed By: #### T SH, URIC, CMP, LIPID #### [facility] [address] [address] [address] Candy Cortez Cholesterol.total/ Cholesterol in HDL [Mass ratio] 2.2 {ratio} Normal [facility] Comment on above: Performed By: #### T SH, URIC, CMP, LIPID #### [facility] [address] [address] [address] Candy Cortez HDL NORMAL > or = 60 mg/dl - LOW CARDIOVASCULAR RISK <40 mg/dl - HIGH CARDIOVASCULAR RISK Normal [facility] Comment on above: Performed By: #### T SH, URIC, CMP, LIPID #### [facility] [address] [address] [address] Candy Cortez LDL CALC NORMAL SEE BELOW Normal [facility] Comment on above: Result Comment: <100 mg/dl OPTIMAL 100 - 129 mg/dl NEAR OR ABOVE OPTIMAL 130 - 159 mg/dl BORDERLINE HIGH 160 - 189 mg/dl HIGH >190 mg/dl VERY HIGH Performed By: #### T SH, URIC, CMP, LIPID #### [facility] [address] [address] [address] Candy Cortez Triglyceride [Mass/Vol] 273 mg/dL Critically high <=150 [facility] Comment on above: Performed By: #### T SH, URIC, CMP, LIPID #### [facility] [address] [address] [address] Candy Cortez VLDL CALC 54.6 mg/dL Normal [facility] Comment on above: Performed By: #### T SH, URIC, CMP, LIPID #### [facility] [address] [address] [address] Candy Cortez CBC AUTO DIFFon 01-22-2022 BASO # 0.1 103/ul Normal 0.0-0.[address] [facility] Comment on above: Performed By: #### C BC #### [facility] [address] [address] [address] Candy Cortez Basophils/100 WBC (Bld) 1.2 % Normal 0.2-2.[address] [facility] Comment on above: Performed By: #### C BC #### [facility] [address] [address] [address] Candy Cortez EO # 0.2 103/ul Normal 0.0-0.[address] [facility] Comment on above: Performed By: #### C BC #### [facility] [address] [place] [address] Dr. Candy Cortez Eosinophils/100 WBC (Bld) 2.8 % Normal 0.9-7.[address] [facility] Comment on above: Performed By: #### C BC #### [facility] [address] [place] [address] Dr. Candy Cortez Erythrocyte distribution width (RBC) [Ratio] 12.2 % Normal 11.0-15.[address] [facility] Comment on above: Performed By: #### C BC #### [facility] [address] [place] [address] Dr. Candy Cortez Hematocrit (Bld) [Volume fraction] 41.0 % Normal 36.0-48.[address] [facility] Comment on above: Performed By: #### C BC #### [facility] [address] [place] [address] Dr. Candy Cortez Hemoglobin (Bld) [Mass/Vol] 13.6 g/dL Normal 12.0-16.[address] [facility] Comment on above: Performed By: #### C BC #### [facility] [address] [place] [address] Dr. Candy Cortez IG # 0.00 10e3/ul Normal 0.00-0.[address] [facility] Comment on above: Performed By: #### C BC #### [facility] [address] [place] [address] Dr. Candy Cortez IG % 0.0 % Normal 0.0-0.[address] [facility] Comment on above: Performed By: #### C BC #### [facility] [address] [place] [address] Dr. Candy Cortez LYMPH # 2.7 103/ul Normal 1.2-3.[address] [facility] Comment on above: Performed By: #### C BC #### [facility] [address] [place] [address] Dr. Candy Cortez Lymphocytes/100 WBC (Bld) 47.5 % Normal 20.5-60.[address] [facility] Comment on above: Performed By: #### C BC #### [facility] [address] [place] [address] Dr. Candy Cortez MANUAL DIFF REQ NO Normal [facility] Comment on above: Performed By: #### C BC #### [facility] [address] [place] [address] Dr. Candy Cortez MCH (RBC) [Entitic mass] 32.5 pg Normal 26.7-34.[address] [facility] Comment on above: Performed By: #### C BC #### [facility] [address] [place] [address] Dr. Candy Cortez MCHC (RBC) [Mass/Vol] 33.2 g/dL Normal 29.9-35.[address] [facility] Comment on above: Performed By: #### C BC #### [facility] [address] [place] [address] Dr. Candy Cortez MCV (RBC) [Entitic vol] 97.9 fL Normal 81.0-99.[address] [facility] Comment on above: Performed By: #### C BC #### [facility] [address] [place] [address] Dr. Candy Cortez MONO # 0.5 103/ul Normal 0.3-0.[address] [facility] Comment on above: Performed By: #### C BC #### [facility] [address] [place] [address] Dr. Candy Cortez Monocytes/100 WBC (Bld) 8.4 % Normal 1.7-12.[address] [facility] Comment on above: Performed By: #### C BC #### [facility] [address] [address] [address] Candy Cortez NEUT # 2.3 103/ul Normal 1.4-6.[address] [facility] Comment on above: Performed By: #### C BC #### [facility] [address] [place] [address] Dr. Candy Cortez Neutrophils/100 WBC (Bld) 40.1 % Critically low 43.0-75.[address] [facility] Comment on above: Performed By: #### C BC #### [facility] [address] [place] [address] Dr. Candy Cortez Platelet mean volume (Bld) [Entitic vol] 11.5 fL Normal 9.5-13.[address] [facility] Comment on above: Performed By: #### C BC #### [facility] [address] [place] [address] Dr. Candy Cortez PLT 305 103/ul Normal 150-[address] [facility] Comment on above: Performed By: #### C BC #### [facility] [address] [place] [address] Dr. Candy Cortez RBC 4.19 106/ul Critically low 4.20-5.40 [facility] Comment on above: Performed By: #### C BC #### [facility] [address] [place] [address] Dr. Candy Cortez WBC 5.7 103/ul Normal 4.0-11.[address] [facility] Comment on above: Performed By: #### C BC #### [facility] [address] [place] [address] Dr. Candy Cortez FREE T4on 01-22-2022 Free T4 [Mass/Vol] 0.78 ng/dL Normal 0.76-1.46 [facility] Comment on above: Performed By: #### T SH, URIC, CMP, LIPID #### [facility] [address] [address] [address] Candy Cortez LIPID PROFILEon 01-22-2022 CHOL-HDL RATIO NORM SEE BELOW Normal [facility] Comment on above: Result Comment: 3.3 - 4.4 LOW RISK 4.4 - 7.1 AVERAGE RISK 7.1 - 11.0 MODERATE RISK >11.0 HIGH RISK Performed By: #### T SH, URIC, CMP, LIPID #### [facility] [address] [address] [address] Candy Cortez Cholesterol [Mass/Vol] 167 mg/dL Normal <=200 [facility] Comment on above: Performed By: #### T SH, URIC, CMP, LIPID #### [facility] [address] [address] [address] Candy Cortez Cholesterol in HDL [Mass/Vol] 64 mg/dL Critically high 40-[address] [facility] Comment on above: Performed By: #### T SH, URIC, CMP, LIPID #### [facility] [address] [address] [address] Candy Cortez Cholesterol in LDL [Mass/Vol] 43.6 mg/dL Normal [facility] Comment on above: Performed By: #### T SH, URIC, CMP, LIPID #### [facility] [address] [address] [address] Candy Cortez Cholesterol.total/ Cholesterol in HDL [Mass ratio] 2.6 {ratio} Normal [facility] Comment on above: Performed By: #### T SH, URIC, CMP, LIPID #### [facility] [address] [address] [address] Candy Cortez HDL NORMAL > or = 60 mg/dl - LOW CARDIOVASCULAR RISK <40 mg/dl - HIGH CARDIOVASCULAR RISK Normal [facility] Comment on above: Performed By: #### T SH, URIC, CMP, LIPID #### [facility] [address] [address] [address] Candy Cortez LDL CALC NORMAL SEE BELOW Normal [facility] Comment on above: Result Comment: <100 mg/dl OPTIMAL 100 - 129 mg/dl NEAR OR ABOVE OPTIMAL 130 - 159 mg/dl BORDERLINE HIGH 160 - 189 mg/dl HIGH >190 mg/dl VERY HIGH Performed By: #### T SH, URIC, CMP, LIPID #### [facility] [address] [address] [address] Candy Cortez Triglyceride [Mass/Vol] 297 mg/dL Critically high <=[address] [facility] Comment on above: Performed By: #### T SH, URIC, CMP, LIPID #### [facility] [address] [address] [address] Candy Cortez VLDL CALC 59.4 mg/dL Normal [facility] Comment on above: Performed By: #### T SH, URIC, CMP, LIPID #### [facility] [address] [address] [address] Candy Cortez PROF 14(COMP METB)on 022 Albumin [Mass/Vol] 3.6 g/dL Normal 3.4-5.0 [facility] Comment on above: Performed By: #### T SH, URIC, CMP, LIPID #### [facility] [address] [place] [address] Dr. Candy Cortez Albumin/Globulin [Mass ratio] 1.0 {ratio} Normal [facility] Comment on above: Performed By: #### T SH, URIC, CMP, LIPID #### [facility] [address] [address] [address] Candy Cortez ALP [Catalytic activity/Vol] 79 U/L Normal 46-116 [facility] Comment on above: Performed By: #### T SH, URIC, CMP, LIPID #### [facility] [address] [address] [address] Candy Cortez ALT [Catalytic activity/Vol] 23 U/L Normal 14-[address] [facility] Comment on above: Performed By: #### T SH, URIC, CMP, LIPID #### [facility] [address] [place] [address] Dr. Candy Cortez Anion gap [Moles/Vol] 9.7 mmol/L Normal [facility] Comment on above: Performed By: #### T SH, URIC, CMP, LIPID #### [facility] [address] [address] [address] Candy Cortez AST [Catalytic activity/Vol] 20 U/L Normal 15-37 [facility] Comment on above: Performed By: #### T SH, URIC, CMP, LIPID #### [facility] [address] [address] [address] Candy Cortez Bilirubin [Mass/Vol] 0.4 mg/dL Normal 0.2-1.[address] [facility] Comment on above: Performed By: #### T SH, URIC, CMP, LIPID #### [facility] [address] [address] [address] Candy Cortez Calcium [Mass/Vol] 9.1 mg/dL Normal 8.5-10.1 [facility] Comment on above: Performed By: #### T SH, URIC, CMP, LIPID #### [facility] [address] [place] [address] Dr. Candy Cortez Chloride [Moles/Vol] 103 mmol/L Normal 98-107 [facility] Comment on above: Performed By: #### T SH, URIC, CMP, LIPID #### [facility] [address] [address] [address] Candy Cortez CO2 [Moles/Vol] 29.0 mmol/L Normal 21.0-32.0 [facility] Comment on above: Performed By: #### T SH, URIC, CMP, LIPID #### [facility] [address] [address] [address] Candy Cortez Creatinine [Mass/Vol] 0.72 mg/dL Normal 0.55-1.[address] [facility] Comment on above: Performed By: #### T SH, URIC, CMP, LIPID #### [facility] [address] [place] [address] Dr. Candy Cortez EGFR-AF GIBRALTARIAN >60 Normal >=60 [facility] Comment on above: Performed By: #### T SH, URIC, CMP, LIPID #### [facility] [address] [address] [address] Candy Cortez EGFR-NON AF GIBRALTARIAN >60 Normal >=[address] [facility] Comment on above: Performed By: #### T SH, URIC, CMP, LIPID #### [facility] [address] [address] [address] Candy Cortez Globulin (S) [Mass/Vol] 3.7 g/dL Normal [facility] Comment on above: Performed By: #### T SH, URIC, CMP, LIPID #### [facility] [address] [address] [address] Candy Cortez Glucose [Mass/Vol] 93 mg/dL Normal 74-[address] [facility] Comment on above: Performed By: #### T SH, URIC, CMP, LIPID #### [facility] [address] [place] [address] Dr. Candy Cortez Potassium [Moles/Vol] 4.7 mmol/L Normal 3.5-5.1 [facility] Comment on above: Performed By: #### T SH, URIC, CMP, LIPID #### [facility] [address] [address] [address] Candy Cortez Protein [Mass/Vol] 7.3 g/dL Normal 6.4-8.[address] [facility] Comment on above: Performed By: #### T SH, URIC, CMP, LIPID #### [facility] [address] [place] [address] Dr. Candy Cortez Sodium [Moles/Vol] 137 mmol/L Normal 136-[address] [facility] Comment on above: Performed By: #### T SH, URIC, CMP, LIPID #### [facility] [address] [place] [address] Dr. Candy Cortez Urea nitrogen [Mass/Vol] 12.0 mg/dL Normal 7.0-18.0 [facility] Comment on above: Performed By: #### T SH, URIC, CMP, LIPID #### [facility] [address] [place] [address] Dr. Candy Cortez Urea nitrogen/Creatinin e [Mass ratio] 16.7 mg/mg Normal [facility] Comment on above: Performed By: #### T SH, URIC, CMP, LIPID #### [facility] [address] [place] [address] Dr. Candy Cortez TSHon 01-22-2022 TSH 0.748 uIU/mL Normal 0.358-3.740 [facility] Comment on above: Performed By: #### T SH, URIC, CMP, LIPID #### [facility] [address] [place] [address] Dr. Candy Cortez UA RANDOM W/MICROSCOPICon BACTERIA NONE SEEN Normal NONE SEEN [facility] Comment on above: Performed By: #### U AMIC #### [facility] [address] [place] [address] Dr. Candy Cortez Bilirubin Ql (U) Negative Normal NEGATIVE [facility] Comment on above: Performed By: #### U AMIC #### [facility] [address] [place] [address] Dr. Candy Cortez CAST NONE SEEN Normal NONE SEEN [facility] Comment on above: Performed By: #### U AMIC #### [facility] [address] [place] [address] Dr. Candy Cortez Clarity (U) CLEAR Normal CLEAR [facility] Comment on above: Performed By: #### U AMIC #### [facility] [address] [place] [address] Dr. Candy Cortez Color (U) LT. YELLOW Normal YELLOW [facility] Comment on above: Performed By: #### U AMIC #### [facility] [address] [place] [address] Dr. Candy Cortez Crystals LM Nom (Urine sed) NONE SEEN Normal NONE SEEN [facility] Comment on above: Performed By: #### U AMIC #### [facility] [address] [place] [address] Dr. Candy Cortez Epithelial cells LM Ql (Urine sed) RARE Normal NONE SEEN /RARE [facility] Comment on above: Performed By: #### U AMIC #### [facility] [address] [place] [address] Dr. Candy Cortez Glucose Ql (U) Negative Normal NEGATIVE [facility] Comment on above: Performed By: #### U AMIC #### [facility] [address] [address] [address] Candy Cortez Hemoglobin Ql (U) Negative Normal NEGATIVE [facility] Comment on above: Performed By: #### U AMIC #### [facility] [address] [address] [address] Candy Cortez Ketones Ql (U) Negative Normal NEGATIVE [facility] Comment on above: Performed By: #### U AMIC #### [facility] [address] [address] [address] Candy Cortez LEUKOCYTES Negative Normal NEGATIVE [facility] Comment on above: Performed By: #### U AMIC #### [facility] [address] [place] [address] Dr. Candy Cortez MUCOUS TRACE Abnormal NONE SEEN [facility] Comment on above: Performed By: #### U AMIC #### [facility] [address] [address] [address] Candy Cortez Nitrite Ql (U) Negative Normal NEGATIVE [facility] Comment on above: Performed By: #### U AMIC #### [facility] [address] [address] [address] Candy Cortez pH (U) 7.0 [pH] Normal 5-9 [facility] Comment on above: Performed By: #### U AMIC #### [facility] [address] [place] [address] Dr. Candy Cortez RBC NONE SEEN Abnormal 0-2 [facility] Comment on above: Performed By: #### U AMIC #### [facility] [address] [place] [address] Dr. Candy Cortez SPEC GRAVITY 1.020 Normal 1.005-<=1.025 [facility] Comment on above: Performed By: #### U AMIC #### [facility] [address] [place] [address] Dr. Candy Cortez UA PROTEIN Negative Normal NEGATIVE/ TRACE [facility] Comment on above: Performed By: #### U AMIC #### [facility] [address] [place] [address] Dr. Candy Cortez Urobilinogen Qn (U) 0.2 {Nicko'U}/dL Normal 0.2 - 1.[address] [facility] Comment on above: Performed By: #### U AMIC #### [facility] [address] [place] [address] Dr. Candy Cortez WBC NONE SEEN Normal NONE SEEN [facility] Comment on above: Performed By: #### U AMIC #### [facility] [address] [address] [address] Candy Cortez URIC ACID SERUMon 01-22-2022 Urate [Mass/Vol] 3.1 mg/dL Normal 2.6-6.0 [facility] Comment on above: Performed By: #### T SH, URIC, CMP, LIPID #### [facility] [address] [place] [address] Dr. Candy Cortez Vital Signs Date Time Vital Sign Value Performing Clinician Joaquin sage 10-27-2023 13:18-0400 Body weight 70.76 kg Carmela Lester Work Phone: [facility] 10-06-2023 14:11-0400 Body weight 70.[address] [facility] Encounters Encounter Date Encounter Type Care Provider Facility Start: 10-31-2023 End: 10-31-2023 ambulatory Nikki Gayle MD Facility:[facility] Start: 10-27-2023 End: 10-27-2023 ambulatory Carmela Lester Work Phone: [facility] Work Phone: Start: 10-27-2023 End: 10-27-2023 Patient encounter procedure Carmela Lester Work Phone: [facility] Work Phone: Start: 10-27-2023 End: 10-27-2023 Patient encounter procedure Carmela Lester Work Phone: [facility] Work Phone: Start: 10-27-2023 End: 10-27-2023 ambulatory Carmela Karlene Popeholz Work Phone: [facility] Work Phone: Start: 10-06-2023 End: 10-06-2023 ambulatory [facility] Work Phone: Start: 10-06-2023 End: 10-06-2023 Patient encounter procedure [facility] Work Phone: Start: 09-29-2023 End: 09-29-2023 ambulatory ASHUTOSH QUINTANA Not Available Start: 09-07-2023 End: 09-07-2023 ambulatory CARMELA AICHHOLZ Not Available Start: 07-11-2023 End: 07-11-2023 ambulatory CARMELA AICHHOLZ Not Available Start: 06-08-2023 End: 06-08-2023 ambulatory [facility] Start: 05-30-2023 End: 05-30-2023 ambulatory CARMELA AICHHOLZ Not Available Start: 05-10-2023 End: 05-10-2023 ambulatory CARMELA AICHHOLZ Not Available Start: 02-07-2023 End: 02-07-2023 ambulatory CARMELA AICHHOLZ Not Available Start: 07-22-2022 End: 07-23-2022 ambulatory [employer] CARMELA AICHHOLZ Facility:[facility] Start: 07-05-2022 End: 07-06-2022 ambulatory [employer] CARMELA AICHHOLZ Facility:[facility] Start: 05-10-2022 End: 05-11-2022 ambulatory [employer] CARMELA AICHHOLZ Facility:[facility] Start: 01-22-2022 End: 01-23-2022 ambulatory [employer] CARMELA AICHHOLZ Facility:[facility] Procedures Date Procedure Procedure Detail Performing Clinician Start: 10-27-2023 X-ray of cervical spine Carmela Aichholz Work Phone: Plan of Treatment Date Care Activity Detail Author Start: 10-27-2023 X-ray of cervical spine XR cer v spine AP/LAT/FLX/[facility] Start: 10-27-2023 XR Cervical spine 4 [facility] Start: 10-06-2023 Patient referral [facility] Work Phone: Patient referral [facility] Work Phone: XR Cervical spine 4 [facility] Payers Date Payer Category Payer Self-pay 2023 Unknown 1970 Unknown [id number] [id number] 1970 Unknown [id number] 1970 Unknown [id number] 1970 Unknown [id number] 2.16.84 [id number] 1970 Unknown [id number] 2.16.84 [id number] 1971 Unknown [id number] 2.16.84 [id number] 1971 Unknown [id number] 2.16.84 [id number] 1971 Unknown [id number] 2.16.84 [id number] 1971 Unknown [id number] 2.16.84 [id number] 1971 Unknown [id number] 2.16.840 .[id number] 1971 Unknown [id number] 2.16. [id number] 1959 Unknown [id number] Unknown [id number] 2.16.8 [id number] Social History Date Type Detail Facility Tobacco smoking stat [facility] Unknown if ever smoked [facility] Work Phone: Start: 1970 Sex Assigned At Female F [facility] Progress note 06-08-2023 Note Date & Type Note Facility 06-08-2023 Note [facility] Note Chief Complaint: New patient [...] 2. 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 josé manuel [facility] Work Phone: Hospital Discharge instructions Note Date & Type Note Facility Hospital Discharge instructions Ambulatory OrdersReferral to Pain Management Location: None Selected [facility] Work Phone: Summary Purpose Family History No Family History Records FoundNo Family History Records FoundNo Family History Records FoundNo Family History Records FoundNo Family History Records Found Advance Directives No Advanced Directives Records Found Advance Directive Response Recorded Date/ Time Advance Directives No September 22 4:25pm Chief Complaint and Reason for Visit Chief Complaint Radiculopathy, cervi daniel region Chief Complaint Radiculopathy, cervi daniel region M54.2 follow up cervical pain Reason for Visit Arm pain Cervical radiculopathy Ulnar neuropathy at elbow Arm pain Neck pain Ulnar neuropathy at elbow Additional Source Comments INFORMATION SOURCE (unrecogn ized section and content) DATE CREATED AUTHOR [facility]2022 [facility] DATE CREATED AUTHOR AUTHOR'S ORGANIZ ATION 06/10/2023 [facility] DATE CREATED AUTHOR AUTHOR'S ORGANIZ ATION 10/02/2023 [facility] EPIC DATE CREATED AUTHOR AUTHOR'S ORGANIZ ATION 10/29/2023 [facility] DATE CREATED AUTHOR AUTHOR'S ORGANIZ ATION 11/12/2023 [facility] Care Teams (unrecognized sec tion and content) Team Status: Active Member Role Status Dates Carmela Lester Primary Care Provider Active Team Status: Inactive Member Role Status Dates Carmela Lester Primary Care Provider Active Sta rt: October 06, 2023 End: October 06, 2023 Loly Comer APRN Attending Provider Active Start: October 06, 2023 End: October 06, 2023 Team Status: Active Member Role Status Dates Carmela Popemorenalaura Primary Care Provider Active Sta rt: October 27, 2023 Loly Comer APRN Attending Provider Active Start: October 27, 2023 Team Status: Inactive Member Role Status Dates Carmela Popemorenalaura Primary Care Provider Active Sta rt: October 27, 2023 End: October 27, 2023 Loly Comer APRN Attending Provider Active Start: October 27, 2023 End: October 27, 2023 Goals (unrecognized section and content) Goals may be documented in a n alternate sectionGoals may be documented in an alternate sectionGoals may be documented in an alternate section FOR RECORDS PERTAINING TO PATIENTS WHO ARE [...] BE BASED ON THE PRIMARY CLINICAL RECORDS. [employer] provides no warranty or guarantee of the accuracy or completeness of information in this document.
[2023-11-21 09:21] VITALS: BP 158/94; PULSE 72; TEMP 36.6; O2SAT 99
[2023-11-21 10:04] VITALS: BP 196/115; PULSE 85; O2SAT 98
[2023-11-21 10:05] VITALS: BP 196/95; PULSE 80; O2SAT 98
--- NOTE | 2023-11-21 10:06 | P.ON_ITS ---
Date of procedure: 11/21/23 Pre-op diagnosis: M54.12 Post-op diagnosis: same as pre-op Procedure: Procedure: Right C3-4, C5-6 transforaminal epidural steroid injection Medications: Bupivacaine 0.25% 2cc, lidocaine 2% 1cc, dexamethasone 10mg The patient was seen and examined in the preoperative holding area.? Informed consent was obtained and placed on the chart.? Patient was brought to the medical procedure unit and placed in the prone position where a timeout was completed verifying the correct patient, procedure site, position, and planned special equipment using sterile aseptic technique.? Under direct fluoroscopic visualization a 25-gauge Quincke tipped spinal needle was advanced to the designated neural foramen where contrast dye was injected to show adequate spread.? The needle was inserted at level right C3-4. There was no evidence of vascular or adverse uptake.? Epidural spread was appreciated.? The above- mentioned injectate was then placed in a 1.5 mL aliquot preceded by negative aspiration.? The needle was removed. The needle was inserted and the procedure repeated at level right C5-6.? The surgery site was covered.? Patient was taken to the postprocedural recovery area and monitored for an appropriate length of time before found suitable for discharge in the accompaniment of a responsible adult. Surgeon: Nikki Gayle Pathology: none sent Condition: stable Disposition: no change
[2023-11-21] MEDS: DEXAMETHASONE SOD PHOS 10 MG/ML VIAL INJ (10:07)
[2023-11-21] MEDS: BUPIVACAINE HCL 0.25% PF 25 MG/10 ML VIAL INJ (10:07)
[2023-11-21] MEDS: LIDOCAINE HCL 2% 400 MG/20 ML MDV INJ (10:08)
[2023-11-21] MEDS: IOHEXOL 240 MG/ML - 10 ML VIAL 12 MG INJ (10:08)
== END 2023-11-21 10:11 | disposition home or self-care (01) ==
LOC: SURGOUT 08:46
PROVIDERS: PCP Nurse Practitioner; Visit Provider Anesthesiology
DX: M54.12 Radiculopathy, cervical region (principal)
CPT/HCPCS: 64479; 64480; J0665; J1100; Q9966

== ENCOUNTER 2023-12-01 13:49 | Outpatient (OUT) | payer OTHER, SELFPAY ==
--- NOTE | 2023-12-01 14:28 | PM.CN ---
Consult Note: HPI Data of Consult Patient: known to practice within the last 3 years Consult date: 10/31/23 Requesting Physician: Jaz Haley NP Primary Care Provider: Carmela Lester NP Consult Narrative Reason for consult: neck, right arm pain Narrative: 53yof who presents for evaluation. worsening pain that radiates from neck to right arm. imaging reviewed, significant for multilevel stenosis, worst at c3-4 and c5-6. has completed physical therapy 15 sessions in past month, without lasting benefit. uses otc pain meds, as needed. evaluated by neurosurgery, but they wanted her to attempt injection therapy first. denies adverse med side effects. patient recently underwent right C3/4 C5/6 TFESI with 80-100% improvement initially and for 1 week, greater than 50% improvement ongoing. evaluated by NS this AM who recommends proceeding with right C3-4 C5-6 TFESI #2. CLYDE significantly improved, previously 36% now 14%. cc:: CC: Jaz Haley NP Review of Systems ROS Status of ROS 10 or more systems reviewed and unremarkable except as noted in history and below Musculoskeletal Reports: neck pain and extremity pain [facility] Medical History (Updated 10/31/23 @ 14:33 by Laurie Nelson RN) HTN (hypertension) ?I10 - Essential (primary) hypertension (ICD-10) Myocardial infarction ?I21.9 - Acute myocardial infarction, unspecified (ICD-10) Surgical History History of ankle surgery ?Z98.890 - Other specified postprocedural states (ICD-10) History of heart bypass surgery ?Z95.1 - Presence of aortocoronary bypass graft (ICD-10) Meds Home Medications and Allergies Home Medications ?Medication ?Instructions ?Recorded ?Confirmed ?Type allopurinol 300 mg tablet 300 mg PO DAILY 10/31/23 11/21/23 History aspirin 81 mg capsule 81 mg PO DAILY 10/31/23 11/21/23 History atorvastatin 80 mg tablet 80 mg PO DAILY 10/31/23 11/21/23 History ezetimibe 10 mg tablet 10 mg PO DAILY 10/31/23 11/21/23 History gabapentin 300 mg capsule 300 mg PO TID 10/31/23 11/21/23 History isosorbide mononitrate 120 mg 120 mg PO DAILY 10/31/23 11/21/23 History tablet,extended release 24 hr levothyroxine 75 mcg capsule 75 mcg PO DAILY 10/31/23 11/21/23 History lisinopril 20 mg tablet 20 mg PO BID 10/31/23 11/21/23 History metoprolol tartrate 100 mg tablet 125 mg PO BID 10/31/23 11/21/23 History (Lopressor) verapamil 80 mg tablet 80 mg PO TID 10/31/23 11/21/23 History Allergies Allergy/AdvReac Type Severity Reaction Status Date / Time adhesive Allergy Rash Verified 11/21/23 09:18 Exam Narrative Exam Narrative: Psych-alert and oriented x 3.? Attentive and appropriate, constitutionally normal, displays normal mood and affect per situation.? There are no obvious deficits in memory, reasoning, or intellect.? Skin-no obvious rashes, bruising, or erythema noted to the patient's area of pain.? Extremities-upper extremities are warm with minimal edema and palpable pulses. Cervical- tenderness to palpation noted in the cervical spine and paraspinal musculature.? Pain is elicited with flexion, extension, and lateral rotation of the cervical spine.? Range of motion is diminished due to pain. Facet loading maneuvers are positive.? Strength-unremarkable and within normal limits with the exception to the right biceps. Sensory-no notable sensory deficits in the bilateral upper extremities to touch or pinprick with the exception to decreased sensation to the right C4, 5, 6 dermatomal distribution.? Coordination remains intact.? Gait remains non-antalgic. Results Additional Findings Additional findings: If on a controlled substance or opioids, I have checked an [place] report on this patient and there are no aberrancies noted in the prescribing history.??If on a controlled substance or opioid a drug screen was completed and reviewed within the last year, and if there has not been a drug screen completed we ordered one today to monitor higher risk, state monitored pain medication use. As part of providing excellent, safe, comprehensive care, the following was completed at our patient's visit: 1. A medication reconciliation and review to ensure accurate knowledge of current/active medications, including asking our patients to inform us about any [id number] medications or herbal remedies/nutritional supplements/alternative remedies. 2. A review to specifically ensure our patients have had annual screening for screening for depression, screening for tobacco use, and screening for unhealthy alcohol use. For concerning screenings had a discussion with the patient, provided patient education, and recommended follow-up with primary care provider when appropriate. If patient noted with a risk of falling, they received education on strength, gait, and balance training to prevent future risk of falling. Assessment and Plan Assessment and Plan (1) Cervical stenosis of spinal canal: (2) Cervical radiculopathy: Plan 53yof who presents for evaluation. failed conservative measures, as noted. imaging reviewed, as noted. given symptoms and imaging, prudent to attempt right C3-4, C5-6 tfesi #2 under fluoroscopic guidance. she is in agreement. meds reviewed, no changes. follow up after procedure.
== END 2023-12-01 13:50 | disposition home or self-care (01) ==
LOC: PM 13:49
PROVIDERS: PCP Nurse Practitioner; Visit Provider Nurse Practitioner
DX: M48.02 Spinal stenosis, cervical region (principal); M54.12 Radiculopathy, cervical region
CPT/HCPCS: G0463

== ENCOUNTER 2023-12-12 08:02 | Day surgery (SDC) | payer OTHER, SELFPAY ==
--- OUTSIDE RECORDS SUMMARY | 2023-12-12 08:08 | XMS_ITS | CCD ---
Author Organization [facility] Care Team Providers Care Refrigeration Person Name Role Phone AICHHOLZ, JOURNAL BOX INSPECTOR CARMELA Admitting Unavailable AICHHOLZ, JOURNAL BOX INSPECTOR CARMELA Attending Unavailable AICHHOLZ, JOURNAL BOX INSPECTOR CARMELA Primary Care Unavailable AICHHOLZ, JOURNAL BOX INSPECTOR CARMELA Consulting Unavailable AICHHOLZ, JOURNAL BOX INSPECTOR CARMELA Admitting Unavailable AICHHOLZ, JOURNAL BOX INSPECTOR CARMELA Attending Unavailable AICHHOLZ, JOURNAL BOX INSPECTOR CARMELA Primary Care Unavailable AICHHOLZ, JOURNAL BOX INSPECTOR CARMELA Consulting Unavailable AICHHOLZ, JOURNAL BOX INSPECTOR CARMELA Admitting Unavailable AICHHOLZ, JOURNAL BOX INSPECTOR CARMELA Attending Unavailable AICHHOLZ, JOURNAL BOX INSPECTOR CARMELA Primary Care Unavailable AICHHOLZ, JOURNAL BOX INSPECTOR CARMELA Consulting Unavailable AICHHOLZ, JOURNAL BOX INSPECTOR CARMELA Admitting Unavailable AICHHOLZ, JOURNAL BOX INSPECTOR CARMELA Attending Unavailable AICHHOLZ, JOURNAL BOX INSPECTOR CARMELA Primary Care Unavailable AICHHOLZ, JOURNAL BOX INSPECTOR CARMELA Consulting Unavailable [place] Attending Unavailable AICHHOLZ, CARMELA Attending Unavailable AICHHOLZ, CARMELA Attending Unavailable AICHHOLZ, CARMELA Attending Unavailable AICHHOLZ, CARMELA Attending Unavailable AICHHOLZ, CARMELA Attending Unavailable ASHUTOSH [place] Attending Unavailable AICHHOLZ, CARMELA Referring Unavailable Aichholz, Carmela J Primary Care Provider [phone] ORLY Comer Attending Provider Aichinocencio, Carmela J Primary Care Unavailable Loly Comer Attending Unavailable Loly Comer Admitting Unavailable Irwin OLSON, Nikki Cantrell Attending Unavailable Irwin OLSON, Nikki Cantrell Attending Unavailable ORLY Comer Attending Provider Allergies Allergy Classification Reported Allergen(s) Allergy Type Date of Onset Reaction(s) Facility (1 source) Desonide Drug Allergy 12-02-2012 [facility] Medications Current Medications Medication Drug Class(es) Dates Sig (Normalized) Sig (Original) Allopurinol (4 sources) Xanthine Oxidase Inhibitor Start: 10-06-2023 Allopurinol Active MG PO October 06, 2023 12:00am aspirin 81 mg delayed release oral tablet (4 sources) Platelet Aggregation Inhibitor, Nonsteroidal Anti-inflammatory Drug Start: 10-06-2023 Aspirin (Adult Low Dose Aspirin) 81 mg tablet,delayed release (DR/EC) Active 81 MG PO Daily October 06, 2023 12:00am atorvastatin (4 sources) HMG-CoA Reductase Inhibitor Start: 10-06-2023 Atorvastatin Active MG PO October 06, 2023 12:00am ezetimibe 10 mg oral tablet (4 sources) Dietary Cholesterol Absorption Inhibitor Start: 10-06-2023 Ezetimibe Active MG PO October 06, 2023 12:00am gabapentin 300 mg oral capsule (4 sources) Anti-epileptic Agent Start: 10-06-2023 Gabapentin Active MG PO October 06, 2023 12:00am 24 hr isosorbide mononitrate 120 mg extended release oral tablet (4 sources) Nitrate Vasodilator Start: 10-06-2023 Isosorbide Mononitrate Active MG PO October 06, 2023 12:00am levothyroxine sodium 0.075 mg oral tablet (4 sources) l-Thyroxine Start: 10-06-2023 Levothyroxine Active MCG PO October 06, 2023 12:00am lisinopril 20 mg oral tablet (4 sources) Angiotensin Converting Enzyme Inhibitor Start: 10-06-2023 Lisinopril Active MG PO October 06, 2023 12:00am metoprolol tartrate 100 mg oral tablet (4 sources) beta-Adrenergic Sara Start: 10-06-2023 Metoprolol Tartrate Active MG PO October 06, 2023 12:00am tiZANidine 4 mg oral tablet (4 sources) Central alpha-2 Adrenergic Agonist Start: 10-06-2023 Tizanidine Active MG PO October 06, 2023 12:00am verapamil hydrochloride 80 mg oral tablet (4 sources) Calcium Channel Sara Start: 10-06-2023 Verapamil Active MG PO October 06, 2023 12:00am Problems Problem Classification Problem Date Documented Date Episodic/Chronic Coronary atherosclerosis and other heart disease (1 source) Atherosclerotic heart disease of [place] coronary artery without angina pectoris; Translations: [ASHD [place] W/O ANGINA PECTORIS] Onset: 01-26-2022 Chronic [...] Onset: 07-24-2022 Episodic Other connective tissue disease (3 sources) Pain in upper limb; Translations: [Pain in arm, unspecified] 10-06-2023 Episodic Other connective tissue disease (6 sources) Pain in arm, unspecified; Translations: [Pain in limb] 10-06-2023 Episodic Other nervous system disorders (3 sources) Ulnar neuropathy; Translations: [Lesion of ulnar nerve, unspecified upper limb] 10-06-2023 Chronic Other nervous system disorders (6 sources) Lesion of ulnar nerve, unspecified upper limb; Translations: [Lesion of ulnar nerve] 10-06-2023 Chronic Other nutritional; endocrine; and metabolic disorders (1 source) Overweight; Translations: [OVERWEIGHT] Onset: 07-24-2022 Episodic Spondylosis; intervertebral disc disorders; other back problems (13 sources) Cervical radiculopathy; Translations: [Radiculopathy, cervical region] Onset: 10-27-2023 10-06-2023 Episodic Thyroid disorders (5 sources) Hypothyroidism, unspecified; Translations: [HYPOTHYROIDISM UNSPECIFIED] Onset: 01-26-2022 Chronic Results Test Name Value Interpretation Reference Range Facil ity XR cerv spine AP/LAT/FLX/EXT on 10-27-2023 XR cerv spine AP/LAT/FLX/EXT [place] [place] [address] XRay Report Signed Patient: Diane Canas MR#: [id number] : 1970 Acct:[id number] Age/Sex: 53 / F ADM Date: 10/27/23 Loc: XD Room: Type: [facility] Attending Dr: Loly Comer APRN Copies [...] Dank Camara M.D.10/27/2023 4:13 PM Dictation Location: [place] [address] Transcribed By: [facility] 10/27/23 1613 Dictated By: Dank Camara DO 10/27/23 1611 Signed By: 10/27/23 1613 Normal [facility] Office Visiton 06-08-2023 Follow-up visit [id number] Diane Canas 1970 F Date Provider Department Center 06/08/2023 271-MIAH THOMPSON [facility] Family History Problem Relation Age of Onset Coronary artery disease Father Family Status - Relation Status Age at Father Level of Service:04884 UT OFFICE/OUTPATIENT NEW LOW MDM 30 MINUTES Normal [facility] CBC AUTO DIFFon 07-22-2022 BASO # 0.1 103/ul Normal 0.0-0.1 [facility] Comment on above: Performed By: #### C BC #### [facility] [address] [address] [address] Candy Cortez Basophils/100 WBC (Bld) 0.6 % Normal 0.2-2.0 [facility] Comment on above: Performed By: #### C BC #### [facility] [address] [address] [address] Candy Cortez EO # 0.3 103/ul Normal 0.0-0.7 [facility] Comment on above: Performed By: #### C BC #### [facility] [address] [place] [address] Dr. Candy Cortez Eosinophils/100 WBC (Bld) 2.8 % Normal 0.9-7.0 [facility] Comment on above: Performed By: #### C BC #### [facility] [address] [place] [address] Dr. Candy Cortez Erythrocyte distribution width (RBC) [Ratio] 11.9 % Normal 11.0-15.0 [facility] Comment on above: Performed By: #### C BC #### [facility] [address] [place] [address] Dr. Candy Cortez Hematocrit (Bld) [Volume fraction] 39.5 % Normal 36.0-48.0 [facility] Comment on above: Performed By: #### C BC #### [facility] [address] [place] [address] Dr. Candy Cortez Hemoglobin (Bld) [Mass/Vol] 12.8 g/dL Normal 12.0-16.0 [facility] Comment on above: Performed By: #### C BC #### [facility] [address] [place] [address] Dr. Candy Cortez IG # 0.04 10e3/ul Critically high 0.00-0.03 [facility] Comment on above: Performed By: #### C BC #### [facility] [address] [place] [address] Dr. Candy Cortez IG % 0.4 % Normal 0.0-0.5 [facility] Comment on above: Performed By: #### C BC #### [facility] [address] [place] [address] Dr. Candy Cortez LYMPH # 3.2 103/ul Normal 1.2-3.8 [facility] Comment on above: Performed By: #### C BC #### [facility] [address] [place] [address] Dr. Candy Cortez Lymphocytes/100 WBC (Bld) 33.9 % Normal 20.5-60.0 [facility] Comment on above: Performed By: #### C BC #### [facility] [address] [place] [address] Dr. Candy Cortez MANUAL DIFF REQ NO Normal [facility] Comment on above: Performed By: #### C BC #### [facility] [address] [place] [address] Dr. Candy Cortez MCH (RBC) [Entitic mass] 31.3 pg Normal 26.7-34.0 [facility] Comment on above: Performed By: #### C BC #### [facility] [address] [place] [address] Dr. Candy Cortez MCHC (RBC) [Mass/Vol] 32.4 g/dL Normal 29.9-35.2 [facility] Comment on above: Performed By: #### C BC #### [facility] [address] [place] [address] Dr. Candy Cortez MCV (RBC) [Entitic vol] 96.6 fL Normal 81.0-99.0 [facility] Comment on above: Performed By: #### C BC #### [facility] [address] [place] [address] Dr. Candy Cortez MONO # 0.8 103/ul Normal 0.3-0.8 [facility] Comment on above: Performed By: #### C BC #### [facility] [address] [place] [address] Dr. Candy Cortez Monocytes/100 WBC (Bld) 8.3 % Normal 1.7-12.0 [facility] Comment on above: Performed By: #### C BC #### [facility] [address] [place] [address] Dr. Candy Cortez NEUT # 5.1 103/ul Normal 1.4-6.5 [facility] Comment on above: Performed By: #### C BC #### [facility] [address] [address] [address] Candy Cortez Neutrophils/100 WBC (Bld) 54.0 % Normal 43.0-75.0 [facility] Comment on above: Performed By: #### C BC #### [facility] [address] [address] [address] Candy Cortez Platelet mean volume (Bld) [Entitic vol] 11.6 fL Normal 9.5-13.5 [facility] Comment on above: Performed By: #### C BC #### [facility] [address] [address] [address] Candy Cortez PLT 258 103/ul Normal 150-450 [facility] Comment on above: Performed By: #### C BC #### [facility] [address] [place] [address] Dr. Candy Cortez RBC 4.09 106/ul Critically low 4.20-5.40 [facility] Comment on above: Performed By: #### C BC #### [facility] [address] [place] [address] Dr. Candy Cortez WBC 9.4 103/ul Normal 4.0-11.0 [facility] Comment on above: Performed By: #### C BC #### [facility] [address] [place] [address] Dr. Candy Cortez FREE T4on 07-22-2022 Free T4 [Mass/Vol] 0.91 ng/dL Normal 0.76-1.46 [facility] Comment on above: Performed By: #### T SH, URIC, CMP, LIPID #### [facility] [address] [place] [address] Dr. Candy Cortez IRONon 07-22-2022 Iron [Mass/Vol] 106.0 ug/dL Normal 50.0-170.0 [facility] Comment on above: Performed By: #### T SH, URIC, CMP, LIPID #### [facility] [address] [place] [address] Dr. Candy Cortez PROF 14(COMP METB)on 05-11-2 023 Albumin [Mass/Vol] 3.7 g/dL Normal 3.4-5.0 [facility] Comment on above: Performed By: #### T SH, CMP #### [facility] [address] [place] [address] Dr. Candy Cortez Albumin/Globulin [Mass ratio] 1.0 {ratio} Normal [facility] Comment on above: Performed By: #### T SH, CMP #### [facility] [address] [place] [address] Dr. Candy Cortez ALP [Catalytic activity/Vol] 84 U/L Normal 46-116 [facility] Comment on above: Performed By: #### T CRISS, CMP #### [facility] [address] [place] [address] Dr. Candy Cortez ALT [Catalytic activity/Vol] 36 U/L Normal 14-59 [facility] Comment on above: Performed By: #### T CRISS, CMP #### [facility] [address] [place] [address] Dr. Candy Cortez Anion gap [Moles/Vol] 11.6 mmol/L Normal [facility] Comment on above: Performed By: #### T CRISS, CMP #### [facility] [address] [place] [address] Dr. Candy Cortez AST [Catalytic activity/Vol] 30 U/L Normal 15-37 [facility] Comment on above: Performed By: #### T CRISS, CMP #### [facility] [address] [place] [address] Dr. Candy Cortez Bilirubin [Mass/Vol] 0.4 mg/dL Normal 0.2-1.0 [facility] Comment on above: Performed By: #### T SH, CMP #### [facility] [address] [place] [address] Dr. Candy Cortez Calcium [Mass/Vol] 9.4 mg/dL Normal 8.5-10.1 [facility] Comment on above: Performed By: #### T SH, CMP #### [facility] [address] [place] [address] Dr. Candy Cortez Chloride [Moles/Vol] 105 mmol/L Normal 98-107 [facility] Comment on above: Performed By: #### T SH, CMP #### [facility] [address] [place] [address] Dr. Candy Cortez CO2 [Moles/Vol] 29.2 mmol/L Normal 21.0-32.0 [facility] Comment on above: Performed By: #### T SH, CMP #### [facility] [address] [place] [address] Dr. Candy Cortez Creatinine [Mass/Vol] 0.78 mg/dL Normal 0.55-1.02 [facility] Comment on above: Performed By: #### T SH, CMP #### [facility] [address] [place] [address] Dr. Candy Cortez EGFR-AF YEMENI >60 Normal >=60 [facility] Comment on above: Performed By: #### T SH, CMP #### [facility] [address] [place] [address] Dr. Candy Cortez EGFR-NON AF YEMENI >60 Normal >=60 [facility] Comment on above: Performed By: #### T SH, CMP #### [facility] [address] [place] [address] Dr. Candy Cortez Globulin (S) [Mass/Vol] 3.8 g/dL Normal [facility] Comment on above: Performed By: #### T SH, CMP #### [facility] [address] [place] [address] Dr. aCndy Cortez Glucose [Mass/Vol] 95 mg/dL Normal 74-106 [facility] Comment on above: Performed By: #### T SH, CMP #### [facility] [address] [place] [address] Dr. Candy Cortez Potassium [Moles/Vol] 4.8 mmol/L Normal 3.5-5.1 [facility] Comment on above: Performed By: #### T SH, CMP #### [facility] [address] [place] [address] Dr. Candy Cortez Protein [Mass/Vol] 7.5 g/dL Normal 6.4-8.2 [facility] Comment on above: Performed By: #### T SH, CMP #### [facility] [address] [place] [address] Dr. Candy Cortez Sodium [Moles/Vol] 141 mmol/L Normal 136-145 [facility] Comment on above: Performed By: #### T SH, CMP #### [facility] [address] [place] [address] Dr. Candy Cortez Urea nitrogen [Mass/Vol] 13.0 mg/dL Normal 7.0-18.0 [facility] Comment on above: Performed By: #### T SH, CMP #### [facility] [address] [place] [address] Dr. Candy Cortez Urea nitrogen/Creatinin e [Mass ratio] 16.7 mg/mg Normal [facility] Comment on above: Performed By: #### T CRISS, CMP #### [facility] [address] [place] [address] Dr. Candy Cortez TSHon 07-22-2022 TSH 0.818 uIU/mL Normal 0.358-3.740 [facility] Comment on above: Performed By: #### T RCISS, CMP #### [facility] [address] [place] [address] Dr. Candy Cortez UA RANDOM W/MICROSCOPICon BACTERIA NONE SEEN Normal NONE SEEN [facility] Comment on above: Performed By: #### U AMIC #### [facility] [address] [place] [address] Dr. Candy Cortez Bilirubin Ql (U) Negative Normal NEGATIVE [facility] Comment on above: Performed By: #### U AMIC #### [facility] [address] [place] [address] Dr. Candy Cortez CAST NONE SEEN Normal NONE SEEN [facility] Comment on above: Performed By: #### U AMIC #### [facility] [address] [place] [address] Dr. Candy Cortez Clarity (U) CLEAR Normal CLEAR [facility] Comment on above: Performed By: #### U AMIC #### [facility] [address] [address] [address] Candy Cortez Color (U) LT. YELLOW Normal YELLOW [facility] Comment on above: Performed By: #### U AMIC #### [facility] [address] [place] [address] Dr. Candy Cortez Crystals LM Nom (Urine sed) NONE SEEN Normal NONE SEEN [facility] Comment on above: Performed By: #### U AMIC #### [facility] [address] [address] [address] Candy Cortez Epithelial cells LM Ql (Urine sed) RARE Normal NONE SEEN /RARE [facility] Comment on above: Performed By: #### U AMIC #### [facility] [address] [address] [address] Candy Cortez Glucose Ql (U) Negative Normal NEGATIVE [facility] Comment on above: Performed By: #### U AMIC #### [facility] [address] [address] [address] Candy Cortez Hemoglobin Ql (U) Negative Normal NEGATIVE [facility] Comment on above: Performed By: #### U AMIC #### [facility] [address] [place] [address] Dr. Candy Cortez Ketones Ql (U) Negative Normal NEGATIVE [facility] Comment on above: Performed By: #### U AMIC #### [facility] [address] [address] [address] Candy Cortez LEUKOCYTES Negative Normal NEGATIVE [facility] Comment on above: Performed By: #### U AMIC #### [facility] [address] [address] [address] Candy Cortez MUCOUS NONE SEEN Normal NONE SEEN [facility] Comment on above: Performed By: #### U AMIC #### [facility] [address] [address] [address] Candy Cortez Nitrite Ql (U) Negative Normal NEGATIVE [facility] Comment on above: Performed By: #### U AMIC #### [facility] [address] [place] [address] Dr. Candy Cortez pH (U) 7.0 [pH] Normal 5-9 [facility] Comment on above: Performed By: #### U AMIC #### [facility] [address] [place] [address] Dr. Candy Cortez RBC 0-2 Normal 0-2 [facility] Comment on above: Performed By: #### U AMIC #### [facility] [address] [place] [address] Dr. Candy Cortez SPEC GRAVITY <=1.005 Abnormal 1.005-<=1.025 [facility] Comment on above: Performed By: #### U AMIC #### [facility] [address] [place] [address] Dr. Candy Cortez UA PROTEIN Negative Normal NEGATIVE/ TRACE [facility] Comment on above: Performed By: #### U AMIC #### [facility] [address] [place] [address] Dr. Candy Cortez Urobilinogen Qn (U) 0.2 {Nicko'U}/dL Normal 0.2 - 1.0 [facility] Comment on above: Performed By: #### U AMIC #### [facility] [address] [place] [address] Dr. Candy Cortez WBC 0-2 Abnormal NONE SEEN [facility] Comment on above: Performed By: #### U AMIC #### [facility] [address] [place] [address] Dr. Candy Cortez VITAMIN B12on 07-22-2022 Cobalamin (Vitamin B12) [Mass/Vol] 201.0 pg/mL Normal 193.0-986.0 [facility] Comment on above: Performed By: #### T SH, URIC, CMP, LIPID #### [facility] [address] [place] [address] Dr. Candy Cortez VITAMIN D 25 OHon 07-22-2022 VIT D 25-OH 14.6 ng/mL Normal [facility] Comment on above: Performed By: #### T SH, URIC, CMP, LIPID #### [facility] [address] [place] [address] Dr. Candy Cortez VIT D RANGES SEE BELOW Normal [facility] Comment on above: Result Comment: <20 ng/mL Vit D deficient 20 - <30 ng/mL Vit D insufficient 30 - 100 ng/mL Vit D sufficient >100 ng/mL Potential Toxicity Performed By: #### T SH, URIC, CMP, LIPID #### [facility] [address] [address] [address] Candy Cortez LIPID PROFILEon 07-05-2022 CHOL-HDL RATIO NORM SEE BELOW Normal [facility] Comment on above: Result Comment: 3.3 - 4.4 LOW RISK 4.4 - 7.1 AVERAGE RISK 7.1 - 11.0 MODERATE RISK >11.0 HIGH RISK Performed By: #### T SH, URIC, CMP, LIPID #### [facility] [address] [place] [address] Dr. Candy Cortez Cholesterol [Mass/Vol] 162 mg/dL Normal <=200 [facility] Comment on above: Performed By: #### T SH, URIC, CMP, LIPID #### [facility] [address] [address] [address] Candy Cortez Cholesterol in HDL [Mass/Vol] 74 mg/dL Critically high 40-60 [facility] Comment on above: Performed By: #### T SH, URIC, CMP, LIPID #### [facility] [address] [place] [address] Dr. Candy Cortez Cholesterol in LDL [Mass/Vol] 54.8 mg/dL Normal [facility] Comment on above: Performed By: #### T SH, URIC, CMP, LIPID #### [facility] [address] [place] [address] Dr. Candy Cortez Cholesterol.total/ Cholesterol in HDL [Mass ratio] 2.2 {ratio} Normal [facility] Comment on above: Performed By: #### T SH, URIC, CMP, LIPID #### [facility] [address] [place] [address] Dr. Candy Cortez HDL NORMAL > or = 60 mg/dl - LOW CARDIOVASCULAR RISK <40 mg/dl - HIGH CARDIOVASCULAR RISK Normal [facility] Comment on above: Performed By: #### T SH, URIC, CMP, LIPID #### [facility] [address] [place] [address] Dr. Candy Cortez LDL CALC NORMAL SEE BELOW Normal [facility] Comment on above: Result Comment: <100 mg/dl OPTIMAL 100 - 129 mg/dl NEAR OR ABOVE OPTIMAL 130 - 159 mg/dl BORDERLINE HIGH 160 - 189 mg/dl HIGH >190 mg/dl VERY HIGH Performed By: #### T SH, URIC, CMP, LIPID #### [facility] [address] [address] [address] Candy Cortez Triglyceride [Mass/Vol] 166 mg/dL Critically high <=150 [facility] Comment on above: Performed By: #### T SH, URIC, CMP, LIPID #### [facility] [address] [place] [address] Dr. Candy Cortez VLDL CALC 33.2 mg/dL Normal [facility] Comment on above: Performed By: #### T SH, URIC, CMP, LIPID #### [facility] [address] [place] [address] Dr. Candy Cortez SGOTon 07-05-2022 AST [Catalytic activity/Vol] 32 U/L Normal 15-37 [facility] Comment on above: Performed By: #### T SH, URIC, CMP, LIPID #### [facility] [address] [place] [address] Dr. Candy Cortez SGPTon 07-05-2022 ALT [Catalytic activity/Vol] 52 U/L Normal 14-59 [facility] Comment on above: Performed By: #### T SH, URIC, CMP, LIPID #### [facility] [address] [place] [address] Dr. Candy Cortez LIPID PROFILEon 05-10-2022 CHOL-HDL RATIO NORM SEE BELOW Normal [facility] Comment on above: Result Comment: 3.3 - 4.4 LOW RISK 4.4 - 7.1 AVERAGE RISK 7.1 - 11.0 MODERATE RISK >11.0 HIGH RISK Performed By: #### T SH, URIC, CMP, LIPID #### [facility] [address] [place] [address] Dr. Candy Cortez Cholesterol [Mass/Vol] 178 mg/dL Normal <=200 [facility] Comment on above: Performed By: #### T SH, URIC, CMP, LIPID #### [facility] [address] [address] [address] Candy Cortez Cholesterol in HDL [Mass/Vol] 80 mg/dL Critically high 40-60 [facility] Comment on above: Performed By: #### T SH, URIC, CMP, LIPID #### [facility] [address] [address] [address] Candy Cortez Cholesterol in LDL [Mass/Vol] 43.4 mg/dL Normal [facility] Comment on above: Performed By: #### T SH, URIC, CMP, LIPID #### [facility] [address] [address] [address] Candy Cortez Cholesterol.total/ Cholesterol in HDL [Mass ratio] 2.2 {ratio} Normal [facility] Comment on above: Performed By: #### T SH, URIC, CMP, LIPID #### [facility] [address] [address] [address] Candy Cortez HDL NORMAL > or = 60 mg/dl - LOW CARDIOVASCULAR RISK <40 mg/dl - HIGH CARDIOVASCULAR RISK Normal [facility] Comment on above: Performed By: #### T SH, URIC, CMP, LIPID #### [facility] [address] [address] [address] Candy Cortez LDL CALC NORMAL SEE BELOW Normal [facility] Comment on above: Result Comment: <100 mg/dl OPTIMAL 100 - 129 mg/dl NEAR OR ABOVE OPTIMAL 130 - 159 mg/dl BORDERLINE HIGH 160 - 189 mg/dl HIGH >190 mg/dl VERY HIGH Performed By: #### T SH, URIC, CMP, LIPID #### [facility] [address] [address] [address] Candy Cortez Triglyceride [Mass/Vol] 273 mg/dL Critically high <=150 [facility] Comment on above: Performed By: #### T SH, URIC, CMP, LIPID #### [facility] [address] [address] [address] Candy Cortez VLDL CALC 54.6 mg/dL Normal [facility] Comment on above: Performed By: #### T SH, URIC, CMP, LIPID #### [facility] [address] [place] [address] Dr. Candy Cortez CBC AUTO DIFFon 01-22-2022 BASO # 0.1 103/ul Normal 0.0-0.1 [facility] Comment on above: Performed By: #### C BC #### [facility] [address] [place] [address] Dr. Candy Cortez Basophils/100 WBC (Bld) 1.2 % Normal 0.2-2.0 [facility] Comment on above: Performed By: #### C BC #### [facility] [address] [place] [address] Dr. Candy Cortez EO # 0.2 103/ul Normal 0.0-0.7 [facility] Comment on above: Performed By: #### C BC #### [facility] [address] [place] [address] Dr. Candy Cortez Eosinophils/100 WBC (Bld) 2.8 % Normal 0.9-7.0 [facility] Comment on above: Performed By: #### C BC #### [facility] [address] [place] [address] Dr. Candy Cortez Erythrocyte distribution width (RBC) [Ratio] 12.2 % Normal 11.0-15.0 [facility] Comment on above: Performed By: #### C BC #### [facility] [address] [place] [address] Dr. Candy Cortez Hematocrit (Bld) [Volume fraction] 41.0 % Normal 36.0-48.0 [facility] Comment on above: Performed By: #### C BC #### [facility] [address] [place] [address] Dr. Candy Cortez Hemoglobin (Bld) [Mass/Vol] 13.6 g/dL Normal 12.0-16.0 [facility] Comment on above: Performed By: #### C BC #### [facility] [address] [place] [address] Dr. Candy Cortez IG # 0.00 10e3/ul Normal 0.00-0.03 [facility] Comment on above: Performed By: #### C BC #### [facility] [address] [place] [address] Dr. Candy Cortez IG % 0.0 % Normal 0.0-0.5 [facility] Comment on above: Performed By: #### C BC #### [facility] [address] [place] [address] Dr. Candy Cortez LYMPH # 2.7 103/ul Normal 1.2-3.8 [facility] Comment on above: Performed By: #### C BC #### [facility] [address] [place] [address] Dr. Candy Cortez Lymphocytes/100 WBC (Bld) 47.5 % Normal 20.5-60.0 [facility] Comment on above: Performed By: #### C BC #### [facility] [address] [place] [address] Dr. Candy Cortez MANUAL DIFF REQ NO Normal [facility] Comment on above: Performed By: #### C BC #### [facility] [address] [place] [address] Dr. Candy Cortez MCH (RBC) [Entitic mass] 32.5 pg Normal 26.7-34.0 [facility] Comment on above: Performed By: #### C BC #### [facility] [address] [place] [address] Dr. Candy Cortez MCHC (RBC) [Mass/Vol] 33.2 g/dL Normal 29.9-35.2 [facility] Comment on above: Performed By: #### C BC #### [facility] [address] [place] [address] Dr. Candy Cortez MCV (RBC) [Entitic vol] 97.9 fL Normal 81.0-99.0 [facility] Comment on above: Performed By: #### C BC #### [facility] [address] [place] [address] Dr. Candy Cortez MONO # 0.5 103/ul Normal 0.3-0.8 [facility] Comment on above: Performed By: #### C BC #### [facility] [address] [address] [address] Candy Cortez Monocytes/100 WBC (Bld) 8.4 % Normal 1.7-12.0 [facility] Comment on above: Performed By: #### C BC #### [facility] [address] [address] [address] Candy Cortez NEUT # 2.3 103/ul Normal 1.4-6.5 [facility] Comment on above: Performed By: #### C BC #### [facility] [address] [address] [address] Candy Cortez Neutrophils/100 WBC (Bld) 40.1 % Critically low 43.0-75.0 [facility] Comment on above: Performed By: #### C BC #### [facility] [address] [place] [address] Dr. Candy Cortez Platelet mean volume (Bld) [Entitic vol] 11.5 fL Normal 9.5-13.5 [facility] Comment on above: Performed By: #### C BC #### [facility] [address] [place] [address] Dr. Candy Cortez PLT 305 103/ul Normal 150-450 [facility] Comment on above: Performed By: #### C BC #### [facility] [address] [address] [address] Candy Cortez RBC 4.19 106/ul Critically low 4.20-5.40 [facility] Comment on above: Performed By: #### C BC #### [facility] [address] [address] [address] Candy Cortez WBC 5.7 103/ul Normal 4.0-11.0 [facility] Comment on above: Performed By: #### C BC #### [facility] [address] [place] [address] Dr. Candy Cortez FREE T4on 01-22-2022 Free T4 [Mass/Vol] 0.78 ng/dL Normal 0.76-1.46 [facility] [place] Comment on above: Performed By: #### T SH, URIC, CMP, LIPID #### [facility] [address] [address] [address] Candy Cortez LIPID PROFILEon 01-22-2022 CHOL-HDL RATIO NORM SEE BELOW Normal [facility] Comment on above: Result Comment: 3.3 - 4.4 LOW RISK 4.4 - 7.1 AVERAGE RISK 7.1 - 11.0 MODERATE RISK >11.0 HIGH RISK Performed By: #### T SH, URIC, CMP, LIPID #### [facility] [address] [address] [address] Candy Cortez Cholesterol [Mass/Vol] 167 mg/dL Normal <=200 [facility] Comment on above: Performed By: #### T SH, URIC, CMP, LIPID #### [facility] [address] [address] [address] Candy Cortez Cholesterol in HDL [Mass/Vol] 64 mg/dL Critically high 40-60 [facility] Comment on above: Performed By: #### T SH, URIC, CMP, LIPID #### [facility] [address] [address] [address] Canyd Cortez Cholesterol in LDL [Mass/Vol] 43.6 mg/dL Normal [facility] Comment on above: Performed By: #### T SH, URIC, CMP, LIPID #### [facility] [address] [address] [address] Candy Cortez Cholesterol.total/ Cholesterol in HDL [Mass ratio] 2.6 {ratio} Normal [facility] Comment on above: Performed By: #### T SH, URIC, CMP, LIPID #### [facility] [address] [address] [address] Candy Cortez HDL NORMAL > or = 60 mg/dl - LOW CARDIOVASCULAR RISK <40 mg/dl - HIGH CARDIOVASCULAR RISK Normal [facility] Comment on above: Performed By: #### T SH, URIC, CMP, LIPID #### [facility] [address] [address] [address] Candy Cortez LDL CALC NORMAL SEE BELOW Normal [facility] Comment on above: Result Comment: <100 mg/dl OPTIMAL 100 - 129 mg/dl NEAR OR ABOVE OPTIMAL 130 - 159 mg/dl BORDERLINE HIGH 160 - 189 mg/dl HIGH >190 mg/dl VERY HIGH Performed By: #### T SH, URIC, CMP, LIPID #### [facility] [address] [place] [address] Dr. Candy Cortez Triglyceride [Mass/Vol] 297 mg/dL Critically high <=150 [facility] Comment on above: Performed By: #### T SH, URIC, CMP, LIPID #### [facility] [address] [address] [address] Candy Cortez VLDL CALC 59.4 mg/dL Normal [facility] Comment on above: Performed By: #### T SH, URIC, CMP, LIPID #### [facility] [address] [place] [address] Dr. Candy Cortez PROF 14(COMP METB)on 022 Albumin [Mass/Vol] 3.6 g/dL Normal 3.4-5.0 [facility] [place] Comment on above: Performed By: #### T SH, URIC, CMP, LIPID #### [facility] [address] [place] [address] Dr. Candy Cortez Albumin/Globulin [Mass ratio] 1.0 {ratio} Normal [facility] Comment on above: Performed By: #### T SH, URIC, CMP, LIPID #### [facility] [address] [place] [address] Dr. Candy Cortez ALP [Catalytic activity/Vol] 79 U/L Normal 46-116 [facility] Comment on above: Performed By: #### T SH, URIC, CMP, LIPID #### [facility] [address] [place] [address] Dr. Candy Cortez ALT [Catalytic activity/Vol] 23 U/L Normal 14-59 [facility] Comment on above: Performed By: #### T SH, URIC, CMP, LIPID #### [facility] [address] [address] [address] Candy Cortez Anion gap [Moles/Vol] 9.7 mmol/L Normal [facility] Comment on above: Performed By: #### T SH, URIC, CMP, LIPID #### [facility] [address] [place] [address] Dr. Candy Cortez AST [Catalytic activity/Vol] 20 U/L Normal 15-37 [facility] Comment on above: Performed By: #### T SH, URIC, CMP, LIPID #### [facility] [address] [place] [address] Dr. Candy Cortez Bilirubin [Mass/Vol] 0.4 mg/dL Normal 0.2-1.0 [facility] Comment on above: Performed By: #### T SH, URIC, CMP, LIPID #### [facility] [address] [place] [address] Dr. Candy Cortez Calcium [Mass/Vol] 9.1 mg/dL Normal 8.5-10.1 [facility] [place] Comment on above: Performed By: #### T SH, URIC, CMP, LIPID #### [facility] [address] [place] [address] Dr. Candy Cortez Chloride [Moles/Vol] 103 mmol/L Normal 98-107 [facility] Comment on above: Performed By: #### T SH, URIC, CMP, LIPID #### [facility] [address] [place] [address] Dr. Candy Cortez CO2 [Moles/Vol] 29.0 mmol/L Normal 21.0-32.0 [facility] Comment on above: Performed By: #### T SH, URIC, CMP, LIPID #### [facility] [address] [place] [address] Dr. Candy Cortez Creatinine [Mass/Vol] 0.72 mg/dL Normal 0.55-1.02 [facility] Comment on above: Performed By: #### T SH, URIC, CMP, LIPID #### [facility] [address] [place] [address] Dr. Candy Cortez EGFR-AF YEMENI >60 Normal >=60 [facility] Comment on above: Performed By: #### T SH, URIC, CMP, LIPID #### [facility] [address] [place] [address] Dr. Candy Cortez EGFR-NON AF YEMENI >60 Normal >=60 [facility] Comment on above: Performed By: #### T SH, URIC, CMP, LIPID #### [facility] [address] [address] [address] Candy Cortez Globulin (S) [Mass/Vol] 3.7 g/dL Normal [facility] Comment on above: Performed By: #### T SH, URIC, CMP, LIPID #### [facility] [address] [address] [address] Candy Cortez Glucose [Mass/Vol] 93 mg/dL Normal 74-106 [facility] Comment on above: Performed By: #### T SH, URIC, CMP, LIPID #### [facility] [address] [address] [address] Candy Cortez Potassium [Moles/Vol] 4.7 mmol/L Normal 3.5-5.1 [facility] Comment on above: Performed By: #### T SH, URIC, CMP, LIPID #### [facility] [address] [place] [address] Dr. Candy Cortez Protein [Mass/Vol] 7.3 g/dL Normal 6.4-8.2 [facility] Comment on above: Performed By: #### T SH, URIC, CMP, LIPID #### [facility] [address] [place] [address] Dr. Candy Cortez Sodium [Moles/Vol] 137 mmol/L Normal 136-145 [facility] Comment on above: Performed By: #### T SH, URIC, CMP, LIPID #### [facility] [address] [place] [address] Dr. Candy Cortez Urea nitrogen [Mass/Vol] 12.0 mg/dL Normal 7.0-18.0 [facility] Comment on above: Performed By: #### T SH, URIC, CMP, LIPID #### [facility] [address] [place] [address] Dr. Candy Cortez Urea nitrogen/Creatinin e [Mass ratio] 16.7 mg/mg Normal [facility] Comment on above: Performed By: #### T SH, URIC, CMP, LIPID #### [facility] [address] [place] [address] Dr. Candy Cortez TSHon 01-22-2022 TSH 0.748 uIU/mL Normal 0.358-3.740 [facility] Comment on above: Performed By: #### T SH, URIC, CMP, LIPID #### [facility] [address] [place] [address] Dr. Candy Cortez UA RANDOM W/MICROSCOPICon BACTERIA NONE SEEN Normal NONE SEEN [facility] Comment on above: Performed By: #### U AMIC #### [facility] [address] [place] [address] Dr. Candy Cortez Bilirubin Ql (U) Negative Normal NEGATIVE [facility] Comment on above: Performed By: #### U AMIC #### [facility] [address] [place] [address] Dr. Candy Cortez CAST NONE SEEN Normal NONE SEEN [facility] Comment on above: Performed By: #### U AMIC #### [facility] [address] [place] [address] Dr. Candy Cortez Clarity (U) CLEAR Normal CLEAR [facility] Comment on above: Performed By: #### U AMIC #### [facility] [address] [place] [address] Dr. Candy Cortez Color (U) LT. YELLOW Normal YELLOW [facility] Comment on above: Performed By: #### U AMIC #### [facility] [address] [place] [address] Dr. Candy Cortez Crystals LM Nom (Urine sed) NONE SEEN Normal NONE SEEN [facility] Comment on above: Performed By: #### U AMIC #### [facility] [address] [place] [address] Dr. Candy Cortez Epithelial cells LM Ql (Urine sed) RARE Normal NONE SEEN /RARE [facility] Comment on above: Performed By: #### U AMIC #### [facility] [address] [place] [address] Dr. Candy Cortez Glucose Ql (U) Negative Normal NEGATIVE [facility] Comment on above: Performed By: #### U AMIC #### [facility] [address] [address] [address] Candy Cortez Hemoglobin Ql (U) Negative Normal NEGATIVE [facility] Comment on above: Performed By: #### U AMIC #### [facility] [address] [address] [address] Cnady Cortez Ketones Ql (U) Negative Normal NEGATIVE [facility] Comment on above: Performed By: #### U AMIC #### [facility] [address] [address] [address] Candy Cortez LEUKOCYTES Negative Normal NEGATIVE [facility] Comment on above: Performed By: #### U AMIC #### [facility] [address] [place] [address] Dr. Candy Cortez MUCOUS TRACE Abnormal NONE SEEN [facility] Comment on above: Performed By: #### U AMIC #### [facility] [address] [address] [address] Candy Cortez Nitrite Ql (U) Negative Normal NEGATIVE [facility] Comment on above: Performed By: #### U AMIC #### [facility] [address] [address] [address] Candy Cortez pH (U) 7.0 [pH] Normal 5-9 [facility] Comment on above: Performed By: #### U AMIC #### [facility] [address] [place] [address] Dr. Candy Cortez RBC NONE SEEN Abnormal 0-2 [facility] Comment on above: Performed By: #### U AMIC #### [facility] [address] [address] [address] Candy Cortez SPEC GRAVITY 1.020 Normal 1.005-<=1.025 [facility] Comment on above: Performed By: #### U AMIC #### [facility] [address] [address] [address] Candy Cortez UA PROTEIN Negative Normal NEGATIVE/ TRACE [facility] Comment on above: Performed By: #### U AMIC #### [facility] [address] [address] [address] Candy Cortez Urobilinogen Qn (U) 0.2 {Nicko'U}/dL Normal 0.2 - 1.0 [facility] Comment on above: Performed By: #### U AMIC #### [facility] [address] [place], [place] [address] Dr. Candy Cortez WBC NONE SEEN Normal NONE SEEN [facility] Comment on above: Performed By: #### U AMIC #### [facility] [address] [address] [address] Candy Cortez URIC ACID SERUMon 01-22-2022 Urate [Mass/Vol] 3.1 mg/dL Normal 2.6-6.0 [facility] Comment on above: Performed By: #### T SH, URIC, CMP, LIPID #### [facility] [id number] Candy Cortez Vital Signs Date Time Vital Sign Value Performing Clinician Faci lity 12-01-2023 12:58-0400 Body height 162.56 cm Carmela Lester Work Phone: [facility] 12-01-2023 12:58-0400 Body mass index (BMI) [Ratio] 27 kg/m2 Carmela Lester Work Phone: [facility] 12-01-2023 12:58-0400 Body weight 71.38 kg Carmela Lester Work Phone: [facility] 10-27-2023 13:18-0400 Body weight 70.76 kg Carmela Lester Work Phone: [facility] 10-06-2023 14:11-0400 Body weight 70.76 kg [facility] Encounters Encounter Date Encounter Type Care Provider Facility Start: 12-01-2023 End: 12-01-2023 ambulatory Carmela Lester Work Phone: [facility] Work Phone: Start: 12-01-2023 End: 12-01-2023 Patient encounter procedure Carmela Aichholz Work Phone: [facility] Work Phone: Start: 11-21-2023 End: 11-21-2023 ambulatory Nikki Gayle MD Facility:[facility] Start: 10-31-2023 End: 10-31-2023 ambulatory Nikki Gayle MD Facility:[facility] Start: 10-27-2023 End: 10-27-2023 ambulatory Carmela J Aichholz Work Phone: [facility] Work Phone: Start: 10-27-2023 End: 10-27-2023 Patient encounter procedure Carmela Aichholz Work Phone: [facility] Work Phone: Start: 10-27-2023 End: 10-27-2023 Patient encounter procedure Carmela Aichholz Work Phone: [facility] Work Phone: Start: 10-27-2023 End: 10-27-2023 ambulatory Carmela J Aichholz Work Phone: [facility] Work Phone: Start: 10-06-2023 End: 10-06-2023 ambulatory [facility] Work Phone: Start: 10-06-2023 End: 10-06-2023 Patient encounter procedure [facility] Work Phone: Start: 09-29-2023 End: 09-29-2023 ambulatory ASHUTOSH QUINTANA Not Available Start: 09-07-2023 End: 09-07-2023 ambulatory CARMELA THADHHOLZ Not Available Start: 07-11-2023 End: 07-11-2023 ambulatory CARMELA AICHHOLZ Not Available Start: 06-08-2023 End: 06-08-[address] [facility] Start: 05-30-2023 End: 05-30-2023 ambulatory CARMELA GROSSZ Not Available Start: 05-10-2023 End: 05-10-2023 ambulatory CARMELA CAROHOLZ Not Available Start: 02-07-2023 End: 02-07-2023 ambulatory CARMELA CAROHOLZ Not Available Start: 07-22-2022 End: 07-23-2022 ambulatory [employer] CARMELA CAROHOLZ Facility:[facility] Start: 07-05-2022 End: 07-06-2022 ambulatory [employer] CARMELA LESTER Facility:[facility] Start: 05-10-2022 End: 05-11-2022 ambulatory DEREK LESTER Facility:[facility] Start: 01-22-2022 End: 01-23-2022 ambulatory DEREK LESTER Facility:[facility] Procedures Date Procedure Procedure Detail Performing Clinician Start: 10-27-2023 X-ray of cervical spine Carmela Lester Work Phone: Plan of Treatment Date Care Activity Detail Author Start: 10-27-2023 X-ray of cervical spine XR cer v spine AP/LAT/FLX/EXT [facility] Start: 10-27-2023 XR Cervical spine 4 Views [facility] Start: 10-06-2023 Patient referral [facility] Work Phone: Patient referral [facility] Work Phone: XR Cervical spine 4 Views [facility] Payers Date Payer Category Payer Self-pay 2023 Unknown 1970 Unknown [id number] 2.16.84 [id number] 1970 Unknown [id number] 2.16.84 [id number] 1971 Unknown [id number] 2.16.84 [id number] 1971 Unknown [id number] 2.16.84 [id number] 1971 Unknown [id number] 2.16.84 [id number] 1971 Unknown [id number] 2.16.84 [id number] 1971 Unknown [id number] 2.16.84 [id number] 1971 Unknown [id number] 2.16.84 [id number] 1971 Unknown [id number] 2.16.84 [id number] 1971 Unknown [id number] 2.16.840 .[id number] 1971 Unknown [id number] 2.16. [id number] 1971 Unknown [id number] 2.16. [id number] 1959 Unknown [id number] Unknown [id number] 2.16.8 [id number] Social History Date Type Detail Facility Tobacco smoking stat [facility] Unknown if ever smoked [facility] Work Phone: Start: 1970 Sex Assigned At Female [facility] Progress note 06-08-2023 Note Date & Type Note Facility 06-08-2023 Note [facility] Card[facility] Clinic Note Chief Complaint: New [...] is to underg (more content not included)... 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 [facility] Work Phone: Hospital Discharge instructions Note Date & Type Note Facility Hospital Discharge instructions Ambulatory OrdersReferral to Pain Management Location: None [facility] Work Phone: Summary Purpose Family History No Family History Records FoundNo Family History Records FoundNo Family History Records FoundNo Family History Records FoundNo Family History Records Found Advance Directives Advance Directive Response Recorded Date/ Time Advance Directives No September 22 4:25pm Chief Complaint and Reason for Visit Chief Complaint Radiculopathy, cervi daniel region Chief Complaint Radiculopathy, cervi daniel region M54.2 follow up cervical pain Reason for Visit Arm pain Cervical radiculopathy Ulnar neuropathy at elbow Arm pain Neck pain Ulnar neuropathy at elbow Chief Complaint Radiculopathy, cervi daniel region M54.2 follow up cervical pain follow up after pain management Reason for Visit Arm pain Cervical radiculopathy Ulnar neuropathy at elbow Arm pain Neck pain Ulnar neuropathy at elbow Additional Source Comments INFORMATION SOURCE (unrecogn ized section and content) DATE CREATED AUTHOR 07/25/2022 [facility] DATE CREATED AUTHOR AUTHOR'S ORGANIZ ATION 06/10/2023 [facility] DATE CREATED AUTHOR AUTHOR'S ORGANIZ ATION 10/02/2023 [facility] EPIC DATE CREATED AUTHOR AUTHOR'S ORGANIZ ATION 10/29/2023 [facility] DATE CREATED AUTHOR AUTHOR'S ORGANIZ ATION 11/27/2023 [facility] Care Teams (unrecognized sec tion and [...] October 27, 2023 End: October 27, 2023 Team Status: Inactive Member Role Status Dates Carmela Lester Primary Care Provider Active Sta rt: December 01, 2023 End: December 01, 2023 Loly Comer APRN Attending Provider Active Start: December 01, 2023 End: December 01, 2023 Goals (unrecognized section and content) Goals [...] BE BASED ON THE PRIMARY CLINICAL RECORDS. [facility] [employer], [facility]. provides no warranty or guarantee of the accuracy or completeness of information in this document.
[2023-12-12 08:23] VITALS: BP 133/93; PULSE 60; TEMP 36.1; O2SAT 100
[2023-12-12 09:09] VITALS: BP 118/56; PULSE 67; O2SAT 97
--- NOTE | 2023-12-12 09:13 | P.ON_ITS ---
Date of procedure: 12/12/23 Pre-op diagnosis: Pain due to cervical radiculopathy Post-op diagnosis: same as pre-op Procedure: Procedure: Right C3-4, 5-6 transforaminal epidural steroid injection Medications: Bupivacaine 0.25% 1cc, lidocaine 2% 1cc, dexamethasone 10mg The patient was seen and examined in the preoperative holding area.? Informed consent was obtained and placed on the chart.? Patient was brought to the medical procedure unit and placed in the prone position where a timeout was completed verifying the correct patient, procedure site, position, and planned special equipment using sterile aseptic technique.? Under direct fluoroscopic visualization a 25-gauge Quincke tipped spinal needle was advanced to the designated neural foramen where contrast dye was injected to show adequate spread.? The needle was inserted at level right C3-4. There was no evidence of vascular or adverse uptake.? Epidural spread was appreciated.? The above- mentioned injectate was then placed in a 1.5 mL aliquot preceded by negative aspiration.? The needle was removed. The needle was inserted and the procedure repeated at level right C5-6.? The surgery site was covered.? Patient was taken to the postprocedural recovery area and monitored for an appropriate length of time before found suitable for discharge in the accompaniment of a responsible adult. Anesthesia: Local Surgeon: Nikki Gayle Pathology: none sent Condition: stable Disposition: no change
[2023-12-12 09:14] VITALS: BP 137/82; PULSE 64; O2SAT 94
[2023-12-12] MEDS: LIDOCAINE HCL 2% 400 MG/20 ML MDV INJ (09:15)
[2023-12-12] MEDS: BUPIVACAINE HCL 0.25% PF 25 MG/10 ML VIAL INJ (09:15)
[2023-12-12] MEDS: DEXAMETHASONE SOD PHOS 10 MG/ML VIAL INJ (09:15)
[2023-12-12] MEDS: IOHEXOL 240 MG/ML - 10 ML VIAL 12 MG INJ (09:15)
== END 2023-12-12 09:18 | disposition home or self-care (01) ==
LOC: SURGOUT 08:03
PROVIDERS: PCP Nurse Practitioner; Visit Provider Anesthesiology
DX: M54.12 Radiculopathy, cervical region (principal)
CPT/HCPCS: 64479; 64480; J0665; J1100; Q9966

== ENCOUNTER 2023-12-22 12:37 | Outpatient (OUT) | payer OTHER, SELFPAY ==
--- NOTE | 2023-12-22 12:49 | PM.CN ---
Consult Note: HPI Data of Consult Patient: known to practice within the last 3 years Consult date: 10/31/23 Requesting Physician: Jaz Haley NP Primary Care Provider: Carmela Lester NP Consult Narrative Reason for consult: neck, right arm pain Narrative: [id number] who presents for evaluation. worsening pain that radiates from neck to right arm. imaging reviewed, significant for multilevel stenosis, worst at c3-4 and c5-6. has completed physical therapy 15 sessions in past month, without lasting benefit. uses otc pain meds, as needed. evaluated by neurosurgery, but they wanted her to attempt injection therapy first. patient recently underwent right C3/4 C5/6 TFESI with 80-100% improvement initially and for 1 week, followed by right C3/4 C4/5 TFESI with 50% improvement for 2 days before symptoms returned to baseline. Pin 5/10 increasing with standing walking and activity. noticing her head feels very heavy and worsening numbness tingling weakness of right arm/hand. has been loosing clinical practice consultant strength and having difficulty holding her coffee cup. currently on gabapentin 300mg TID, could not tolerate tizanidine as it made her feel goofy. cc:: CC: Jaz Haley NP Review of Systems ROS Status of ROS 10 or more systems reviewed and unremarkable except as noted in history and below Musculoskeletal Reports: neck pain, extremity pain and muscle weakness [facility] Medical History (Updated 12/22/23 @ 13:06 by Jaz Haley NP) HTN (hypertension) ?I10 - Essential (primary) hypertension (ICD-10) Myocardial infarction ?I21.9 - Acute myocardial infarction, unspecified (ICD-10) Surgical History History of ankle surgery ?Z98.890 - Other specified postprocedural states (ICD-10) History of heart bypass surgery ?Z95.1 - Presence of aortocoronary bypass graft (ICD-10) Meds Home Medications and Allergies Home Medications ?Medication ?Instructions ?Recorded ?Confirmed ?Type allopurinol 300 mg tablet 300 mg PO DAILY 10/31/23 12/12/23 History aspirin 81 mg capsule 81 mg PO DAILY 10/31/23 12/12/23 History atorvastatin 80 mg tablet 80 mg PO DAILY 10/31/23 12/12/23 History ezetimibe 10 mg tablet 10 mg PO DAILY 10/31/23 12/12/23 History gabapentin 300 mg capsule 300 mg PO TID 10/31/23 12/12/23 History isosorbide mononitrate 120 mg 120 mg PO DAILY 10/31/23 12/12/23 History tablet,extended release 24 hr levothyroxine 75 mcg capsule 75 mcg PO DAILY 10/31/23 12/12/23 History lisinopril 20 mg tablet 20 mg PO BID 10/31/23 12/12/23 History metoprolol tartrate 100 mg tablet 125 mg PO BID 10/31/23 12/12/23 History (Lopressor) verapamil 80 mg tablet 80 mg PO TID 10/31/23 12/12/23 History Allergies Allergy/AdvReac Type Severity Reaction Status Date / Time adhesive Allergy Rash Verified 12/12/23 08:26 Exam Constitutional Documenting provider has reviewed patient's vital signs: yes Common normals: no apparent distress, oriented x3, healthy appearing, alert and well nourished General appearance: cooperative HENMT Common normals: normocephalic, hearing grossly normal bilaterally and moist oral mucous membranes Head and scalp: normocephalic Eye Common normals: PERRL Pupil: PERRL Neck & C-Spine Common normals: full ROM General: normal visual inspection Cervical spine: cervical ROM abnormal, pain with cervical ROM, cervical spine tenderness, paracervical muscle tenderness and other (positive spurlings ); no paracervical muscle spasm, no trapezius muscle tenderness and Lhermitte's sign negative Other: strength 4/5 in RUE 5/5 in LUE sensation intact BUE negative murphys Chest Common normals: inspection of chest normal Respiratory Common normals: normal respiratory effort, no retractions and no use of accessory muscles Neuro Common normals: oriented x3, CN's II-XII intact bilaterally, moves all extremities, no focal motor deficits and no sensory deficits noted Sensorium/orientation: alert Motor exam: no movement abnormalities noted and strength abnormal Psych Common normals: mental status grossly normal, thought process normal, cooperative, affect normal, speech normal and activity/motor behavior normal Speech: normal speech Thought process: normal thought process Results Additional Findings Additional findings: If on a controlled substance or opioids, I have checked an [place] report on this patient and there are no aberrancies noted in the prescribing history.??If on a controlled substance or opioid a drug screen was completed and reviewed within the last year, and if there has not been a drug screen completed we ordered one today to monitor higher risk, state monitored pain medication use. As part of providing excellent, safe, comprehensive care, the following was completed at our patient's visit: 1. A medication reconciliation and review to ensure accurate knowledge of current/active medications, including asking our patients to inform us about any [id number] medications or herbal remedies/nutritional supplements/alternative remedies. 2. A review to specifically ensure our patients have had annual screening for screening for depression, screening for tobacco use, and screening for unhealthy alcohol use. For concerning screenings had a discussion with the patient, provided patient education, and recommended follow-up with primary care provider when appropriate. If patient noted with a risk of falling, they received education on strength, gait, and balance training to prevent future risk of falling. Assessment and Plan Assessment and Plan (1) Cervical myelopathy with cervical radiculopathy: (2) Cervical stenosis of spinal canal: (3) Cervical spondylosis: Plan urgent referral back to Dr Britton for evaluation of cervical surgical intervention with worsening neurological deficits including reported head drop, decreased clinical practice consultant strength, intermittent vision changes increase gabapentin to 300mg 2 capsules TID as tolerated, risks vs benefits reviewed discontinue tizanidine due to side effects f/u 3 months for medication management
--- OUTSIDE RECORDS SUMMARY | 2023-12-22 12:58 | XMS_ITS | CCD ---
Author Organization [facility] Care Team Providers Care Kiln Fireman Name Role Phone AICHHOLZ, 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 CARMELA Admitting Unavailable AICHHOLZ, 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 CARMELA Attending Unavailable AICHHOLZ, 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 CARMELA Primary Care Unavailable AICHHOLZ, 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 CARMELA Consulting Unavailable AICHHOLZ, 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 CARMELA Admitting Unavailable AICHHOLZ, 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 CARMELA Attending Unavailable AICHHOLZ, 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 CARMELA Primary Care Unavailable AICHHOLZ, 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 CARMELA Consulting Unavailable AICHHOLZ, 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 CARMELA Admitting Unavailable AICHHOLZ, 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 CARMELA Attending Unavailable AICHHOLZ, 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 CARMELA Primary Care Unavailable AICHHOLZ, 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 CARMELA Consulting Unavailable AICHHOLZ, 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 CARMELA Admitting Unavailable AICHHOLZ, 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 CARMELA Attending Unavailable AICHHOLZ, 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 CARMELA Primary Care Unavailable AICHHOLZ, 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 CARMELA Consulting Unavailable [place], [facility] Attending Unavailable AICHHOLZ, CARMELA Attending Unavailable AICHHOLZ, CARMELA Attending Unavailable AICHHOLZ, CARMELA Attending Unavailable AICHHOLZ, CARMELA Attending Unavailable AICHHOLZ, CARMELA Attending Unavailable ASHUTOSH QUIN[place] Attending Unavailable AICHHOLZ, CARMELA Referring Unavailable Aichholz, Carmela J Primary Care Provider [phone] ORLY Comer Attending Provider Trevon Carmela J Primary Care Unavailable Loly Comer Attending Unavailable Loly Comer Admitting Unavailable ORLY Comer Attending Provider Irwin OLSON, Nikki Cantrell Attending Unavailable Irwin OLSON, Nikki Cantrell Attending Unavailable Irwin OLSON, Nikki Cantrell Attending Unavailable Allergies Allergy Classification Reported Allergen(s) Allergy Type Date of Onset Reaction(s) Facility (1 source) Desonide Drug Allergy 12-02-2012 [facility] Repository Medications Current Medications Medication Drug [...] disease (1 source) Atherosclerotic heart disease of [place] coronary artery without angina pectoris; 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 10/27/23 1613 Dictated By: Dank Camara DO 10/27/23 1611 Signed By: 10/27/23 1613 Normal [facility] Office Visiton 06-08-2023 Follow-up visit [id number] Diane Canas 1970 F Date Provider Department Center 06/08/2023 [id number]-MIAH THOM[facility] CARD [facility] Family History Problem Relation Age of Onset Coronary artery disease Father Family Status - Relation Status Age at Father Level of Service:49831 [place] OFFICE/OUTPATIENT NEW LOW MDM 30 MINUTES Normal [facility] CBC AUTO DIFFon 07-22-2022 BASO # 0.1 103/ul Normal 0.0-0.1 [facility] Comment on above: Performed By: #### C BC #### [facility] [address] [address] [address] Candy Cortez Basophils/100 WBC (Bld) 0.6 % Normal 0.2-2.0 [facility] Comment on above: Performed By: #### C BC #### [facility] [address] [place] [address] Dr. Candy Cortez EO # 0.3 103/ul Normal 0.0-0.7 [facility] Comment on above: Performed By: #### C BC #### [facility] [address] [place] [address] Dr. Candy Cortez Eosinophils/100 WBC (Bld) 2.8 % Normal 0.9-7.0 [facility] Comment on above: Performed By: #### C BC #### [facility] [address] [place] [address] Dr. Candy Cortez Erythrocyte distribution width (RBC) [Ratio] 11.9 % Normal 11.0-15.0 [facility] Comment on above: Performed By: #### C BC #### [facility] [address] [place] [address] Dr. Candy Cortez Hematocrit (Bld) [Volume fraction] 39.5 % Normal 36.0-48.0 [facility] Comment on above: Performed By: #### C BC #### [facility] [address] [place] [address] Dr. Candy Cortez Hemoglobin (Bld) [Mass/Vol] 12.8 g/dL Normal 12.0-16.0 [facility] Comment on above: Performed By: #### C BC #### [facility] [address] [place] [address] Dr. Candy Cortez IG # 0.04 10e3/ul Critically high 0.00-0.03 [facility] Comment on above: Performed By: #### C BC #### [facility] [address] [place] [address] Dr. Candy Cortez IG % 0.4 % Normal 0.0-0.5 [facility] Comment on above: Performed By: #### C BC #### [facility] [address] [place] [address] Dr. Candy Cortez LYMPH # 3.2 103/ul Normal 1.2-3.8 [facility] Comment on above: Performed By: #### C BC #### [facility] [address] [place] [address] Dr. Candy Cortez Lymphocytes/100 WBC (Bld) 33.9 % Normal 20.5-60.0 [facility] Comment on above: Performed By: #### C BC #### [facility] [address] [place] [address] Dr. Candy Cortez MANUAL DIFF REQ NO Normal [facility] Comment on above: Performed By: #### C BC #### [facility] [address] [place] [address] Dr. Candy Cortez MCH (RBC) [Entitic mass] 31.3 pg Normal 26.7-34.0 [facility] Comment on above: Performed By: #### C BC #### [facility] [address] [place] [address] Dr. Candy Cortez MCHC (RBC) [Mass/Vol] 32.4 g/dL Normal 29.9-35.2 [facility] Comment on above: Performed By: #### C BC #### [facility] [address] [place] [address] Dr. Candy Cortez MCV (RBC) [Entitic vol] 96.6 fL Normal 81.0-99.0 [facility] Comment on above: Performed By: #### C BC #### [facility] [address] [place] [address] Dr. Candy Cortez MONO # 0.8 103/ul Normal 0.3-0.8 [facility] Comment on above: Performed By: #### C BC #### [facility] [address] [place] [address] Dr. Candy Cortez Monocytes/100 WBC (Bld) 8.3 % Normal 1.7-12.0 [facility] Comment on above: Performed By: #### C BC #### [facility] [address] [place] [address] Dr. Candy Cortez NEUT # 5.1 103/ul Normal 1.4-6.5 [facility] Comment on above: Performed By: #### C BC #### [facility] [address] [place] [address] Dr. Candy Cortez Neutrophils/100 WBC (Bld) 54.0 % Normal 43.0-75.0 [facility] Comment on above: Performed By: #### C BC #### [facility] [address] [place] [address] Dr. Candy Cortez Platelet mean volume (Bld) [Entitic vol] 11.6 fL Normal 9.5-13.5 [facility] Comment on above: Performed By: #### C BC #### [facility] [address] [place] [address] Dr. Candy Cortez PLT 258 103/ul Normal 150-450 [facility] Comment on above: Performed By: #### C BC #### [facility] [address] [place] [address] Dr. Candy Cortez RBC 4.09 106/ul Critically low 4.20-5.40 [facility] Comment on above: Performed By: #### C BC #### [facility] [address] [place] [address] Dr. Candy Cortez WBC 9.4 103/ul Normal 4.0-11.0 [facility] Comment on above: Performed By: #### C BC #### [facility] [address] [place] [address] Dr. Candy Cortez FREE T4on 07-22-2022 Free T4 [Mass/Vol] 0.91 ng/dL Normal 0.76-1.46 [facility] Comment on above: Performed By: #### T SH, URIC, CMP, LIPID #### [facility] [address] [place] [address] Dr. Candy Cortez IRONon 07-22-2022 Iron [Mass/Vol] 106.0 ug/dL Normal 50.0-170.0 [facility] Comment on above: Performed By: #### T SH, URIC, CMP, LIPID #### [facility] [address] [place] [address] Dr. Candy Cortez PROF 14(COMP METB)on 023 Albumin [Mass/Vol] 3.7 g/dL Normal 3.4-5.0 [facility] Comment on above: Performed By: #### T SH, CMP #### [facility] [address] [place] [address] Dr. Candy Cortez Albumin/Globulin [Mass ratio] 1.0 {ratio} Normal [facility] Comment on above: Performed By: #### T SH, CMP #### [facility] [address] [place] [address] Dr. Candy Cortez ALP [Catalytic activity/Vol] 84 U/L Normal 46-116 [facility] Comment on above: Performed By: #### T SH, CMP #### [facility] [address] [place] [address] Dr. Candy Cortez ALT [Catalytic activity/Vol] 36 U/L Normal 14-59 [facility] Comment on above: Performed By: #### T SH, CMP #### [facility] [address] [place] [address] Dr. Candy Cortez Anion gap [Moles/Vol] 11.6 mmol/L Normal [facility] Comment on above: Performed By: #### T SH, CMP #### [facility] [address] [place] [address] Dr. Candy Cortez AST [Catalytic activity/Vol] 30 U/L Normal 15-37 [facility] Comment on above: Performed By: #### T SH, CMP #### [facility] [address] [place] [address] Dr. Candy Cortez Bilirubin [Mass/Vol] 0.4 mg/dL Normal 0.2-1.0 [facility] Comment on above: Performed By: #### T SH, CMP #### [facility] [address] [place] [address] Dr. Candy Cortez Calcium [Mass/Vol] 9.4 mg/dL Normal 8.5-10.1 [facility] Comment on above: Performed By: #### T SH, CMP #### [facility] [address] [place] [address] Dr. Candy Cortez Chloride [Moles/Vol] 105 mmol/L Normal 98-107 [facility] Comment on above: Performed By: #### T SH, CMP #### [facility] [address] [place] [address] [address] Candy Cortez CO2 [Moles/Vol] 29.2 mmol/L Normal 21.0-32.0 [facility] Comment on above: Performed By: #### T SH, CMP #### [facility] [address] [place] [address] Dr. Candy Cortez Creatinine [Mass/Vol] 0.78 mg/dL Normal 0.55-1.02 [facility] Comment on above: Performed By: #### T SH, CMP #### [facility] [address] [place] [address] Dr. Candy Cortez EGFR-AF QATARI >60 Normal >=60 [facility] Comment on above: Performed By: #### T SH, CMP #### [facility] [address] [place] [address] Dr. Candy Cortez EGFR-NON AF QATARI >60 Normal >=60 [facility] Comment on above: Performed By: #### T SH, CMP #### [facility] [address] [place] [address] Dr. Candy Cortez Globulin (S) [Mass/Vol] 3.8 g/dL Normal [facility] Comment on above: Performed By: #### T SH, CMP #### [facility] [address] [place] [address] Dr. Candy Cortez Glucose [Mass/Vol] 95 mg/dL Normal 74-106 [facility] Comment on above: Performed By: #### T SH, CMP #### [facility] [address] [place] [address] Dr. Candy Cortez Potassium [Moles/Vol] 4.8 mmol/L Normal 3.5-5.1 [facility] Comment on above: Performed By: #### T SH, CMP #### [facility] [address] [place] [address] Dr. Candy Cortez Protein [Mass/Vol] 7.5 g/dL Normal 6.4-8.2 [facility] Comment on above: Performed By: #### T SH, CMP #### [facility] [address] [place] [address] Dr. Candy Cortez Sodium [Moles/Vol] 141 mmol/L Normal 136-145 [facility] Comment on above: Performed By: #### T SH, CMP #### [facility] [address] [place] [address] Dr. Candy Cortez Urea nitrogen [Mass/Vol] 13.0 mg/dL Normal 7.0-18.0 [facility] Comment on above: Performed By: #### T SH, CMP #### [facility] [address] [place] [address] Dr. Candy Cortez Urea nitrogen/Creatinin e [Mass ratio] 16.7 mg/mg Normal [facility] Comment on above: Performed By: #### T CRISS, CMP #### [facility] [address] [place] [address] Dr. Candy Cortez TSHon 07-22-2022 TSH 0.818 uIU/mL Normal 0.358-3.740 [facility] Comment on above: Performed By: #### T CRISS, CMP #### [facility] [address] [place] [address] Dr. Candy Cortez UA RANDOM W/MICROSCOPICon BACTERIA NONE SEEN Normal NONE SEEN [facility] Comment on above: Performed By: #### U AMIC #### [facility] [address] [place] [address] Dr. Candy Cortez Bilirubin Ql (U) Negative Normal NEGATIVE [facility] Comment on above: Performed By: #### U AMIC #### [facility] [address] [place] [address] Dr. Candy Cortez CAST NONE SEEN Normal NONE SEEN [facility] Comment on above: Performed By: #### U AMIC #### [facility] [address] [place] [address] Dr. Candy Cortez Clarity (U) CLEAR Normal CLEAR [facility] Comment on above: Performed By: #### U AMIC #### [facility] [address] [address] [address] Candy Cortez Color (U) LT. YELLOW Normal YELLOW [facility] Comment on above: Performed By: #### U AMIC #### [facility] [address] [address] [address] Candy Cortez Crystals LM Nom (Urine sed) NONE SEEN Normal NONE SEEN [facility] Comment on above: Performed By: #### U AMIC #### [facility] [address] [address] [address] Candy Cortez Epithelial cells LM Ql (Urine sed) RARE Normal NONE SEEN /RARE [facility] Comment on above: Performed By: #### U AMIC #### [facility] [address] [place] [address] Dr. Candy Cortez Glucose Ql (U) Negative Normal NEGATIVE [facility] [place] Comment on above: Performed By: #### U AMIC #### [facility] [address] [address] [address] Candy Cortez Hemoglobin Ql (U) Negative Normal NEGATIVE [facility] Comment on above: Performed By: #### U AMIC #### [facility] [address] [address] [address] Candy Cortez Ketones Ql (U) Negative Normal NEGATIVE [facility] [place] Comment on above: Performed By: #### U AMIC #### [facility] [address] [address] [address] Candy Cortez LEUKOCYTES Negative Normal NEGATIVE [facility] Comment on above: Performed By: #### U AMIC #### [facility] [address] [address] [address] Candy Cortez MUCOUS NONE SEEN Normal NONE SEEN [facility] Comment on above: Performed By: #### U AMIC #### [facility] [address] [address] [address] Candy Cortez Nitrite Ql (U) Negative Normal NEGATIVE [facility] [place] Comment on above: Performed By: #### U AMIC #### [facility] [address] [address] [address] Candy Cortez pH (U) 7.0 [pH] Normal 5-9 [facility] Comment on above: Performed By: #### U AMIC #### [facility] [address] [place] [address] Dr. Candy Cortez RBC 0-2 Normal 0-2 [facility] Comment on above: Performed By: #### U AMIC #### [facility] [address] [address] [address] Candy Cortez SPEC GRAVITY <=1.005 Abnormal 1.005-<=1.025 [facility] Comment on above: Performed By: #### U AMIC #### [facility] [address] [place] [address] Dr. Candy Cortez UA PROTEIN Negative Normal NEGATIVE/ TRACE [facility] Comment on above: Performed By: #### U AMIC #### [facility] [address] [place] [address] Dr. Candy Cortez Urobilinogen Qn (U) 0.2 {Nicko'U}/dL Normal 0.2 - 1.0 [facility] Comment on above: Performed By: #### U AMIC #### [facility] [address] [place] [address] Dr. Candy Cortez WBC 0-2 Abnormal NONE SEEN [facility] Comment on above: Performed By: #### U AMIC #### [facility] [address] [place] [address] Dr. Candy Cortez VITAMIN B12on 07-22-2022 Cobalamin (Vitamin B12) [Mass/Vol] 201.0 pg/mL Normal 193.0-986.0 [facility] Comment on above: Performed By: #### T SH, URIC, CMP, LIPID #### [facility] [address] [place] [address] Dr. Candy Cortez VITAMIN D 25 OHon 07-22-2022 VIT D 25-OH 14.6 ng/mL Normal [facility] Comment on above: Performed By: #### T SH, URIC, CMP, LIPID #### [facility] [address] [address] [address] Candy Cortez VIT D RANGES SEE BELOW Normal [facility] Comment on above: Result Comment: <20 ng/mL Vit D deficient 20 - <30 ng/mL Vit D insufficient 30 - 100 ng/mL Vit D sufficient >100 ng/mL Potential Toxicity Performed By: #### T SH, URIC, CMP, LIPID #### [facility] [address] [address] [address] Candy Cortez LIPID PROFILEon 07-05-2022 CHOL-HDL RATIO NORM SEE BELOW Normal [facility] Comment on above: Result Comment: 3.3 - 4.4 LOW RISK 4.4 - 7.1 AVERAGE RISK 7.1 - 11.0 MODERATE RISK >11.0 HIGH RISK Performed By: #### T SH, URIC, CMP, LIPID #### [facility] [address] [address] [address] Candy Cortez Cholesterol [Mass/Vol] 162 mg/dL Normal <=200 [facility] Comment on above: Performed By: #### T SH, URIC, CMP, LIPID #### [facility] [address] [address] [address] Candy Cortez Cholesterol in HDL [Mass/Vol] 74 mg/dL Critically high 40-60 [facility] Comment on above: Performed By: #### T SH, URIC, CMP, LIPID #### [facility] [address] [address] [address] Candy Cortez Cholesterol in LDL [Mass/Vol] 54.8 mg/dL Normal [facility] Comment on above: Performed By: #### T SH, URIC, CMP, LIPID #### [facility] [address] [address] [address] Candy Cortez Cholesterol.total/ Cholesterol in HDL [Mass ratio] 2.2 {ratio} Normal [facility] Comment on above: Performed By: #### T SH, URIC, CMP, LIPID #### [facility] [address] [address] [address] Candy Cortez HDL NORMAL > or = 60 mg/dl - LOW CARDIOVASCULAR RISK <40 mg/dl - HIGH CARDIOVASCULAR RISK Normal [facility] Comment on above: Performed By: #### T SH, URIC, CMP, LIPID #### [facility] [address] [address] [address] Candy Cortez LDL CALC NORMAL SEE BELOW Normal [facility] Comment on above: Result Comment: <100 mg/dl OPTIMAL 100 - 129 mg/dl NEAR OR ABOVE OPTIMAL 130 - 159 mg/dl BORDERLINE HIGH 160 - 189 mg/dl HIGH >190 mg/dl VERY HIGH Performed By: #### T SH, URIC, CMP, LIPID #### [facility] [address] [address] [address] Candy Cortez Triglyceride [Mass/Vol] 166 mg/dL Critically high <=150 [facility] Comment on above: Performed By: #### T SH, URIC, CMP, LIPID #### [facility] [address] [address] [address] Candy Cortez VLDL CALC 33.2 mg/dL Normal [facility] Comment on above: Performed By: #### T SH, URIC, CMP, LIPID #### [facility] [address] [address] [address] Candy Flower 07-05-2022 AST [Catalytic activity/Vol] 32 U/L Normal 15-37 [facility] Comment on above: Performed By: #### T SH, URIC, CMP, LIPID #### [facility] [address] [address] [address] Candy Colby 07-05-2022 ALT [Catalytic activity/Vol] 52 U/L Normal 14-59 [facility] Comment on above: Performed By: #### T SH, URIC, CMP, LIPID #### [facility] [address] [address] [address] Candy Cortez LIPID PROFILEon 05-10-2022 CHOL-HDL RATIO NORM SEE BELOW Normal [facility] Comment on above: Result Comment: 3.3 - 4.4 LOW RISK 4.4 - 7.1 AVERAGE RISK 7.1 - 11.0 MODERATE RISK >11.0 HIGH RISK Performed By: #### T SH, URIC, CMP, LIPID #### [facility] [address] [address] [address] Candy Cortez Cholesterol [Mass/Vol] 178 mg/dL Normal <=200 [facility] Comment on above: Performed By: #### T SH, URIC, CMP, LIPID #### [facility] [address] [address] [address] Candy Cortez Cholesterol in HDL [Mass/Vol] 80 mg/dL Critically high 40-60 [facility] Comment on above: Performed By: #### T SH, URIC, CMP, LIPID #### [facility] [address] [address] [address] Candy Cortez Cholesterol in LDL [Mass/Vol] 43.4 mg/dL Normal [facility] Comment on above: Performed By: #### T SH, URIC, CMP, LIPID #### [facility] [address] [address] Dr. Candy Cortez Cholesterol.total/ Cholesterol in HDL [Mass ratio] 2.2 {ratio} Normal [facility] [place] Comment on above: Performed By: #### T SH, URIC, CMP, LIPID #### [facility] [address] [address] [address] Candy Cortez HDL NORMAL > or = 60 mg/dl - LOW CARDIOVASCULAR RISK <40 mg/dl - HIGH CARDIOVASCULAR RISK Normal [facility] [place] Comment on above: Performed By: #### T SH, URIC, CMP, LIPID #### [facility] [address] [address] [address] Candy Cortez LDL CALC NORMAL SEE BELOW Normal [facility] Comment on above: Result Comment: <100 mg/dl OPTIMAL 100 - 129 mg/dl NEAR OR ABOVE OPTIMAL 130 - 159 mg/dl BORDERLINE HIGH 160 - 189 mg/dl HIGH >190 mg/dl VERY HIGH Performed By: #### T SH, URIC, CMP, LIPID #### [facility] [address] [address] [address] Candy Cortez Triglyceride [Mass/Vol] 273 mg/dL Critically high <=150 [facility] Comment on above: Performed By: #### T SH, URIC, CMP, LIPID #### [facility] [address] [address] [address] Candy Cortez VLDL CALC 54.6 mg/dL Normal [facility] Comment on above: Performed By: #### T SH, URIC, CMP, LIPID #### [facility] [id number] Candy Cortez CBC AUTO DIFFon 01-22-2022 BASO # 0.1 103/ul Normal 0.0-0.1 [facility] [place] Comment on above: Performed By: #### C BC #### [facility] [address] [place] [address] Dr. Candy Cortez Basophils/100 WBC (Bld) 1.2 % Normal 0.2-2.0 [facility] [place] Comment on above: Performed By: #### C BC #### [facility] [address] [place] [address] Dr. Candy Cortez EO # 0.2 103/ul Normal 0.0-0.7 [facility] [place] Comment on above: Performed By: #### C BC #### [facility] [address] [place] [address] Dr. Candy Cortez Eosinophils/100 WBC (Bld) 2.8 % Normal 0.9-7.0 [facility] [place] Comment on above: Performed By: #### C BC #### [facility] [address] [place] [address] Dr. Candy Cortez Erythrocyte distribution width (RBC) [Ratio] 12.2 % Normal 11.0-15.0 [facility] [place] Comment on above: Performed By: #### C BC #### [facility] [address] [place] [address] Dr. Candy Cortez Hematocrit (Bld) [Volume fraction] 41.0 % Normal 36.0-48.0 [facility] [place] Comment on above: Performed By: #### C BC #### [facility] [address] [place] [address] Dr. Candy Cortez Hemoglobin (Bld) [Mass/Vol] 13.6 g/dL Normal 12.0-16.0 [facility] [place] Comment on above: Performed By: #### C BC #### [facility] [address] [place] [address] Dr. Candy Cortez IG # 0.00 10e3/ul Normal 0.00-0.03 [facility] [place] Comment on above: Performed By: #### C BC #### [facility] [address] [place] [address] Dr. Candy Cortez IG % 0.0 % Normal 0.0-0.5 [facility] [place] Comment on above: Performed By: #### C BC #### [facility] [address] [place] [address] Dr. Candy Cortez LYMPH # 2.7 103/ul Normal 1.2-3.8 [facility] Comment on above: Performed By: #### C BC #### [facility] [address] [place] [address] Dr. Candy Cortez Lymphocytes/100 WBC (Bld) 47.5 % Normal 20.5-60.0 [facility] [place] Comment on above: Performed By: #### C BC #### [facility] [address] [place] [address] Dr. Candy Cortez MANUAL DIFF REQ NO Normal [facility] Comment on above: Performed By: #### C BC #### [facility] [address] [place] [address] Dr. Candy Cortez MCH (RBC) [Entitic mass] 32.5 pg Normal 26.7-34.0 [facility] [place] Comment on above: Performed By: #### C BC #### [facility] [address] [place] [address] Dr. Candy Cortez MCHC (RBC) [Mass/Vol] 33.2 g/dL Normal 29.9-35.2 [facility] Comment on above: Performed By: #### C BC #### [facility] [address] [place] [address] Dr. Candy Cortez MCV (RBC) [Entitic vol] 97.9 fL Normal 81.0-99.0 [facility] [place] Comment on above: Performed By: #### C BC #### [facility] [address] [place] [address] Dr. Candy Cortez MONO # 0.5 103/ul Normal 0.3-0.8 [facility] Comment on above: Performed By: #### C BC #### [facility] [address] [place] [address] Dr. Candy Cortez Monocytes/100 WBC (Bld) 8.4 % Normal 1.7-12.0 [facility] Comment on above: Performed By: #### C BC #### [facility] [address] [place] [address] Dr. Candy Cortez NEUT # 2.3 103/ul Normal 1.4-6.5 [facility] Comment on above: Performed By: #### C BC #### [facility] [address] [place] [address] Dr. Candy Cortez Neutrophils/100 WBC (Bld) 40.1 % Critically low 43.0-75.0 [facility] [place] Comment on above: Performed By: #### C BC #### [facility] [address] [place] [address] Dr. Candy Cortez Platelet mean volume (Bld) [Entitic vol] 11.5 fL Normal 9.5-13.5 [facility] Comment on above: Performed By: #### C BC #### [facility] [address] [place] [address] Dr. Candy Cortez PLT 305 103/ul Normal 150-450 [facility] Comment on above: Performed By: #### C BC #### [facility] [address] [place] [address] Dr. Candy oCrtez RBC 4.19 106/ul Critically low 4.20-5.40 [facility] Comment on above: Performed By: #### C BC #### [facility] [address] [place] [address] Dr. Candy Cortez WBC 5.7 103/ul Normal 4.0-11.0 [facility] Comment on above: Performed By: #### C BC #### [facility] [address] [place] [address] Dr. Candy Cortez FREE T4on 11-11-2022 Free T4 [Mass/Vol] 0.78 ng/dL Normal 0.76-1.46 [facility] Comment on above: Performed By: #### T SH, URIC, CMP, LIPID #### [facility] [address] [place] [address] Dr. Candy Cortez LIPID PROFILEon 01-22-2022 CHOL-HDL RATIO NORM SEE BELOW Normal [facility] [place] Comment on above: Result Comment: 3.3 - 4.4 LOW RISK 4.4 - 7.1 AVERAGE RISK 7.1 - 11.0 MODERATE RISK >11.0 HIGH RISK Performed By: #### T SH, URIC, CMP, LIPID #### [facility] [address] [place] [address] Dr. Candy Cortez Cholesterol [Mass/Vol] 167 mg/dL Normal <=200 [facility] [place] Comment on above: Performed By: #### T SH, URIC, CMP, LIPID #### [facility] [address] [address] [address] Candy Cortez Cholesterol in HDL [Mass/Vol] 64 mg/dL Critically high 40-60 [facility] [place] Comment on above: Performed By: #### T SH, URIC, CMP, LIPID #### [facility] [address] [place] [address] Dr. Candy Cortez Cholesterol in LDL [Mass/Vol] 43.6 mg/dL Normal [facility] [place] Comment on above: Performed By: #### T SH, URIC, CMP, LIPID #### [facility] [address] [address] [address] Candy Cortez Cholesterol.total/ Cholesterol in HDL [Mass ratio] 2.6 {ratio} Normal [facility] [place] Comment on above: Performed By: #### T SH, URIC, CMP, LIPID #### [facility] [address] [place] [address] Dr. Candy Cortez HDL NORMAL > or = 60 mg/dl - LOW CARDIOVASCULAR RISK <40 mg/dl - HIGH CARDIOVASCULAR RISK Normal [facility] [place] Comment on above: Performed By: #### T SH, URIC, CMP, LIPID #### [facility] [address] [address] [address] Candy Cortez LDL CALC NORMAL SEE BELOW Normal [facility] Comment on above: Result Comment: <100 mg/dl OPTIMAL 100 - 129 mg/dl NEAR OR ABOVE OPTIMAL 130 - 159 mg/dl BORDERLINE HIGH 160 - 189 mg/dl HIGH >190 mg/dl VERY HIGH Performed By: #### T SH, URIC, CMP, LIPID #### [facility] [address] [address] [address] Candy Cortez Triglyceride [Mass/Vol] 297 mg/dL Critically high <=150 [facility] [place] Comment on above: Performed By: #### T SH, URIC, CMP, LIPID #### [facility] [address] [address] [address] Candy Cortez VLDL CALC 59.4 mg/dL Normal [facility] [place] Comment on above: Performed By: #### T SH, URIC, CMP, LIPID #### [facility] [address] [place] [address] Dr. Candy Cortez PROF 14(COMP METB)on 022 Albumin [Mass/Vol] 3.6 g/dL Normal 3.4-5.0 [facility] Comment on above: Performed By: #### T SH, URIC, CMP, LIPID #### [facility] [address] [address] [address] Candy Cortez Albumin/Globulin [Mass ratio] 1.0 {ratio} Normal [facility] [place] Comment on above: Performed By: #### T SH, URIC, CMP, LIPID #### [facility] [address] [address] [address] Candy Cortez ALP [Catalytic activity/Vol] 79 U/L Normal 46-116 [facility] Comment on above: Performed By: #### T SH, URIC, CMP, LIPID #### [facility] [address] [address] [address] Candy Cortez ALT [Catalytic activity/Vol] 23 U/L Normal 14-59 [facility] [place] Comment on above: Performed By: #### T SH, URIC, CMP, LIPID #### [facility] [address] [place] [address] Dr. Candy Cortez Anion gap [Moles/Vol] 9.7 mmol/L Normal [facility] [place] Comment on above: Performed By: #### T SH, URIC, CMP, LIPID #### [facility] [address] [address] [address] Candy Cortez AST [Catalytic activity/Vol] 20 U/L Normal 15-37 [facility] [place] Comment on above: Performed By: #### T SH, URIC, CMP, LIPID #### [facility] [address] [address] [address] Candy Cortez Bilirubin [Mass/Vol] 0.4 mg/dL Normal 0.2-1.0 [facility] [place] Comment on above: Performed By: #### T SH, URIC, CMP, LIPID #### [facility] [address] [place] [address] Dr. Candy Cortez Calcium [Mass/Vol] 9.1 mg/dL Normal 8.5-10.1 [facility] Comment on above: Performed By: #### T SH, URIC, CMP, LIPID #### [facility] [address] [address] [address] Candy Cortez Chloride [Moles/Vol] 103 mmol/L Normal 98-107 [facility] Comment on above: Performed By: #### T SH, URIC, CMP, LIPID #### [facility] [address] [place] [address] Dr. Candy Cortez CO2 [Moles/Vol] 29.0 mmol/L Normal 21.0-32.0 [facility] Comment on above: Performed By: #### T SH, URIC, CMP, LIPID #### [facility] [address] [place] [address] Dr. Candy Cortez Creatinine [Mass/Vol] 0.72 mg/dL Normal 0.55-1.02 [facility] [place] Comment on above: Performed By: #### T SH, URIC, CMP, LIPID #### [facility] [address] [place] [address] Dr. Candy Cortez EGFR-AF QATARI >60 Normal >=60 [facility] Comment on above: Performed By: #### T SH, URIC, CMP, LIPID #### [facility] [address] [address] [address] Candy Cortez EGFR-NON AF QATARI >60 Normal >=60 [facility] [place] Comment on above: Performed By: #### T SH, URIC, CMP, LIPID #### [facility] [address] [place] [address] Dr. Candy Cortez Globulin (S) [Mass/Vol] 3.7 g/dL Normal [facility] [place] Comment on above: Performed By: #### T SH, URIC, CMP, LIPID #### [facility] [address] [place] [address] Dr. Candy Cortez Glucose [Mass/Vol] 93 mg/dL Normal 74-106 [facility] Comment on above: Performed By: #### T SH, URIC, CMP, LIPID #### [facility] [address] [place] [address] Dr. Candy Cortez Potassium [Moles/Vol] 4.7 mmol/L Normal 3.5-5.1 [facility] [place] Comment on above: Performed By: #### T SH, URIC, CMP, LIPID #### [facility] [address] [address] [address] Candy Cortez Protein [Mass/Vol] 7.3 g/dL Normal 6.4-8.2 [facility] Comment on above: Performed By: #### T SH, URIC, CMP, LIPID #### [facility] [address] [place] [address] Dr. Candy Cortez Sodium [Moles/Vol] 137 mmol/L Normal 136-145 [facility] Comment on above: Performed By: #### T SH, URIC, CMP, LIPID #### [facility] [address] [place] [address] Dr. Candy Cortez Urea nitrogen [Mass/Vol] 12.0 mg/dL Normal 7.0-18.0 [facility] [place] Comment on above: Performed By: #### T SH, URIC, CMP, LIPID #### [facility] [address] [place] [address] Dr. Candy Cortez Urea nitrogen/Creatinin e [Mass ratio] 16.7 mg/mg Normal [facility] Comment on above: Performed By: #### T SH, URIC, CMP, LIPID #### [facility] [address] [place] [address] Dr. Candy Cortez TSHon 01-22-2022 TSH 0.748 uIU/mL Normal 0.358-3.740 [facility] Comment on above: Performed By: #### T SH, URIC, CMP, LIPID #### [facility] [address] [place] [address] Dr. Candy Cortez UA RANDOM W/MICROSCOPICon BACTERIA NONE SEEN Normal NONE SEEN [facility] [place] Comment on above: Performed By: #### U AMIC #### [facility] [address] [place] [address] Dr. Candy Cortez Bilirubin Ql (U) Negative Normal NEGATIVE [facility] Comment on above: Performed By: #### U AMIC #### [facility] [address] [place] [address] Dr. Candy Cortez CAST NONE SEEN Normal NONE SEEN [facility] [place] Comment on above: Performed By: #### U AMIC #### [facility] [address] [place] [address] Dr. Candy Cortez Clarity (U) CLEAR Normal CLEAR [facility] [place] Comment on above: Performed By: #### U AMIC #### [facility] [address] [place] [address] Dr. Candy Cortez Color (U) LT. YELLOW Normal YELLOW [facility] Comment on above: Performed By: #### U AMIC #### [facility] [address] [place] [address] Dr. Candy Cortez Crystals LM Nom (Urine sed) NONE SEEN Normal NONE SEEN [facility] [place] Comment on above: Performed By: #### U AMIC #### [facility] [address] [place] [address] Dr. Candy Cortez Epithelial cells LM Ql (Urine sed) RARE Normal NONE SEEN /RARE [facility] Comment on above: Performed By: #### U AMIC #### [facility] [address] [address] [address] Candy Cortez Glucose Ql (U) Negative Normal NEGATIVE [facility] [place] Comment on above: Performed By: #### U AMIC #### [facility] [address] [address] [address] Candy Cortez Hemoglobin Ql (U) Negative Normal NEGATIVE [facility] Comment on above: Performed By: #### U AMIC #### [facility] [address] [address] [address] Candy Cortez Ketones Ql (U) Negative Normal NEGATIVE [facility] [place] Comment on above: Performed By: #### U AMIC #### [facility] [address] [address] [address] Candy Cortez LEUKOCYTES Negative Normal NEGATIVE [facility] [place] Comment on above: Performed By: #### U AMIC #### [facility] [address] [address] [address] Candy Cortez MUCOUS TRACE Abnormal NONE SEEN [facility] [place] Comment on above: Performed By: #### U AMIC #### [facility] [address] [address] [address] Candy Cortez Nitrite Ql (U) Negative Normal NEGATIVE [facility] [place] Comment on above: Performed By: #### U AMIC #### [facility] [address] [address] [address] Candy Cortez pH (U) 7.0 [pH] Normal 5-9 [facility] Comment on above: Performed By: #### U AMIC #### [facility] [address] [address] [address] Candy Cortez RBC NONE SEEN Abnormal 0-2 [facility] Comment on above: Performed By: #### U AMIC #### [facility] [address] [address] [address] Candy Cortez SPEC GRAVITY 1.020 Normal 1.005-<=1.025 [facility] Comment on above: Performed By: #### U AMIC #### [facility] [address] [address] [address] Candy Cortez UA PROTEIN Negative Normal NEGATIVE/ TRACE [facility] Comment on above: Performed By: #### U AMIC #### [facility] [address] [place] [address] Dr. Candy Cortez Urobilinogen Qn (U) 0.2 {Nicko'U}/dL Normal 0.2 - 1.0 [facility] Comment on above: Performed By: #### U AMIC #### [facility] [address] [place] [address] Dr. Candy Cortez WBC NONE SEEN Normal NONE SEEN [facility] Comment on above: Performed By: #### U AMIC #### [facility] [address] [place] [address] Dr. Candy Cortez URIC ACID SERUMon 01-22-2022 Urate [Mass/Vol] 3.1 mg/dL Normal 2.6-6.0 [facility] Comment on above: Performed By: #### T SH, URIC, CMP, LIPID #### [facility] [address] [place] [address] Dr. Candy Cortez Vital Signs Date Time Vital Sign Value Performing Clinician Faci lity 12-01-2023 12:58-0400 Body height 162.56 cm Carmela Lester Work Phone: [facility] 12-01-2023 12:58-0400 Body mass index (BMI) [Ratio] 27 kg/m2 Carmela Lester Work Phone: [facility] 12-01-2023 12:58-0400 Body weight 71.38 kg Carmela Lester Work Phone: [facility] 10-27-2023 13:18-0400 Body weight 70.76 kg Carmela Lester Work Phone: [facility] 10-06-2023 14:11-0400 Body weight 70.76 kg [facility] Encounters Encounter Date Encounter Type Care Provider Facility Start: 12-12-2023 End: 12-12-2023 ambulatory Nikki Gayle MD Facility:[facility] [place] Start: 12-01-2023 End: 12-01-2023 ambulatory Carmela J Osielhholz Work Phone: [facility] Work Phone: Start: 12-01-2023 End: 12-01-2023 Patient encounter procedure Carmela Aichholz Work Phone: [facility] Work Phone: Start: 11-21-2023 End: 11-21-2023 ambulatory Nikki Gayle MD Facility: [place] Start: 10-31-2023 End: 10-31-2023 ambulatory Nikki Gayle MD Facility:[facility] Start: 10-27-2023 End: 10-27-2023 ambulatory Carmela Cartagenahholz Work Phone: [facility] Work Phone: Start: 10-27-2023 End: 10-27-2023 Patient encounter procedure Carmela Toshiaholz Work Phone: [facility] Work Phone: Start: 10-27-2023 End: 10-27-2023 Patient encounter procedure Carmela Aichholz Work Phone: [facility] Work Phone: Start: 10-27-2023 End: 10-27-2023 ambulatory Carmela J Aichholz Work Phone: [facility] Work Phone: Start: 10-06-2023 End: 10-06-2023 ambulatory [facility] Work Phone: Start: 10-06-2023 End: 10-06-2023 Patient encounter procedure [facility] Work Phone: Start: 09-29-2023 End: 09-29-2023 ambulatory ASHUTOSH QUINTANA Not Available Start: 09-07-2023 End: 09-07-2023 ambulatory CARMELA AICHHOLZ Not Available Start: 07-11-2023 End: 07-11-2023 ambulatory CARMELA AICHHOLZ Not Available Start: 06-08-2023 End: 06-08-2023 ambulatory [facility] Start: 05-30-2023 End: 05-30-2023 ambulatory CARMELA AICHHOLZ Not Available Start: 05-10-2023 End: 05-10-2023 ambulatory CARMELA AICHHOLZ Not Available Start: 02-07-2023 End: 02-07-2023 ambulatory CARMELA AICHHOLZ Not Available Start: 07-22-2022 End: 07-23-2022 ambulatory 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 CARMELA AICHHOLZ Facility:[facility] Start: 07-05-2022 End: 07-06-2022 ambulatory 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 CARMELA AICHHOLZ Facility:[facility] Start: 05-10-2022 End: 05-11-2022 ambulatory 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 CARMELA AICHHOLZ Facility:[facility] Start: 01-22-2022 End: 01-23-2022 ambulatory 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 CARMELA AICHHOLZ Facility:[facility] Procedures Date Procedure Procedure Detail Performing Clinician Start: 10-27-2023 X-ray of cervical spine Carmela Aichholz Work Phone: Plan of Treatment Date Care Activity Detail Author Start: 10-27-2023 X-ray of cervical spine XR cer v spine AP/LAT/FLX/EXT [facility] Start: 10-27-2023 XR Cervical spine 4 Views [facility] Start: 10-06-2023 Patient referral [facility] Work Phone: Patient referral [facility] Work Phone: XR Cervical spine 4 Views [facility] Payers Date Payer Category Payer Self-pay 2023 Unknown 1970 Unknown [id number] 2.16.84 [id number] 1971 Unknown [id number] 2.16.84 [id number] 1971 Unknown [id number] 2.16.84 [id number] 1971 Unknown [id number] 2.16.84 [id number] 1971 Unknown [id number] 2.16.84 [id number] 1971 Unknown [id number] 2.16.84 [id number] 1971 Unknown [id number] 2.16.84 [id number] 1971 Unknown [id number] 2.16.84 [id number] 1971 Unknown [id number] 2.16.84 [id number] 1971 Unknown [id number] 2.16.840 .[id number] 1971 Unknown [id number] 2.16. [id number] 1971 Unknown [id number] 2.16. [id number] 1971 Unknown [id number] 2.16. [id number] 1959 Unknown [id number] Unknown [id number] 2.16.8 [id number] Social History Date Type Detail Facility Tobacco smoking stat [facility] Unknown if ever smoked [facility] Work Phone: Start: 1970 Sex Assigned At Female F [facility] Progress note 06-08-2023 Note Date & Type Note Facility 06-08-[address] [facility] Note Chief Complaint: New [...] intensity statin therapy along with Zetia, a beta-asra and an angiotensin receptor sara She is to continue Imdur and verapamil for presumed coronary vasospasm I do not believe her right-sided neck and arm pain are cardiac in nature; he is to underg (more content not included)... [facility] Evaluation note Note Date & Type Note Facility Evaluation note No assessment information [facility] Work Phone: Evaluation note Note Date & Type Note Facility Evaluation note Diagnosis Onset Date Arm pain acute Cervical radiculopathy acute Ulnar neuropathy at elbow [facility] Arm pain acute Neck pain acute Ulnar neuropathy at elbow [facility] Work Phone: Hospital Discharge instructions Note Date & Type Note Facility Hospital Discharge instructions Ambulatory OrdersReferral to Pain Management Location: None Selected [facility] Work Phone: Summary Purpose Family History No [...] and content) DATE CREATED AUTHOR 07/25/2022 [facility] DATE CREATED AUTHOR AUTHOR'S ORGANIZ ATION 06/10/2023 [facility] DATE CREATED AUTHOR AUTHOR'S ORGANIZ ATION 10/02/2023 [facility] EPIC DATE CREATED AUTHOR AUTHOR'S ORGANIZ ATION 10/29/2023 [facility] DATE CREATED AUTHOR AUTHOR'S ORGANIZ ATION 12/16/2023 [facility] Care Teams (unrecognized sec tion and [...] Status: Inactive Member Role Status Dates Carmela Rosslaura Primary Care Provider Active Sta rt: October 27, 2023 End: October 27, 2023 Loly Comer APRN Attending Provider Active Start: October 27, 2023 End: October 27, 2023 Team Status: Inactive Member Role Status Dates Carmela Popeinocencio Primary Care Provider Active Sta rt: December [...] BE BASED ON THE PRIMARY CLINICAL RECORDS. [employer] provides no warranty or guarantee of the accuracy or completeness of information in this document.
== END 2023-12-22 12:38 | disposition home or self-care (01) ==
PROVIDERS: PCP Nurse Practitioner; Visit Provider Nurse Practitioner
DX: M54.12 Radiculopathy, cervical region (principal); M47.812 Spondylosis without myelopathy or radiculopathy, cervical region; M48.02 Spinal stenosis, cervical region
CPT/HCPCS: G0463

== ENCOUNTER 2024-03-22 13:17 | Outpatient (OUT) | payer OTHER, SELFPAY ==
--- NOTE | 2024-03-22 13:43 | P.CN_ITS ---
Consult Note: HPI Data of Consult Patient: known to practice within the last 3 years Consult date: 10/31/23 Requesting Physician: Jaz Haley NP Primary Care Provider: Carmela Lester NP Consult Narrative Reason for consult: neck, right arm pain Narrative: [id number] who presents for evaluation. worsening pain that radiates from neck to right arm. imaging reviewed, significant for multilevel stenosis, worst at c3-4 and c5-6. has completed physical therapy 15 sessions in past month, without lasting benefit. uses otc pain meds, as needed. evaluated by neurosurgery, but they wanted her to attempt injection therapy first. patient recently underwent right C3/4 C5/6 TFESI with 80-100% improvement initially and for 1 week, followed by right C3/4 C4/5 TFESI with 50% improvement for 2 days before symptoms returned to baseline. Pain 3/10 increasing with standing walking and activity. at last visit she was reporting heaviness of her head with worsening of the numbness tingling and weakness in RUE. she reports the head drop and heaviness is improving but she has persistent numbness tingling and weakness of BUE worse in RUE. recent brain MRI unremarkable, following with neurology and NS. cc:: CC: Jaz Haley NP Review of Systems ROS Status of ROS 10 or more systems reviewed and unremark able except as noted in history and below Musculoskeletal Reports: neck pain, extremity pain and [facility] History (Updated 12/22/23 @ 13:06 by Jaz Haley NP) HTN (hypertension) ?I10 - Essential (primary) hypertension (ICD-10) Myocardial infarction ?I21.9 - Acute myocardial infarction, unspecified (ICD-10) Surgical History History of ankle surgery ?Z98.890 - Other specified postprocedural states (ICD-10) History of heart bypass surgery ?Z95.1 - Presence of aortocoronary bypass graft (ICD-10) Meds Home Medications and Allergies Home Medications ?Medication ?Instructions ?Recorded ?Confirmed ?Type allopurinol 300 mg tablet 300 mg PO DAILY 10/31/23 12/12/23 History aspirin 81 mg capsule 81 mg PO DAILY 10/31/23 12/12/23 History atorvastatin 80 mg tablet 80 mg PO DAILY 10/31/23 12/12/23 History ezetimibe 10 mg tablet 10 mg PO DAILY 10/31/23 12/12/23 History gabapentin 300 mg capsule 300 mg PO TID 10/31/23 12/12/23 History isosorbide mononitrate 120 mg 120 mg PO DAILY 10/31/23 12/12/23 History tablet,extended release 24 hr levothyroxine 75 mcg capsule 75 mcg PO DAILY 10/31/23 12/12/23 History lisinopril 20 mg tablet 20 mg PO BID 10/31/23 12/12/23 History metoprolol tartrate 100 mg tablet 125 mg PO BID 10/31/23 12/12/23 History (Lopressor) verapamil 80 mg tablet 80 mg PO TID 10/31/23 12/12/23 History gabapentin 300 mg capsule 600 mg (2 x 300 mg) PO TID #180 12/22/23 Rx caps gabapentin 300 mg capsule See Rx Instructions .Route 02/07/24 Rx .COMPLEX #180 caps Allergies Allergy/AdvReac Type Severity Reaction Status Date / Time adhesive Allergy Rash Verified 12/12/23 08:26 Exam Constitutional Documenting provider has reviewed patient's vital signs: yes Common normals: no apparent distress, oriented x3, healthy appearing, alert and well nourished General appearance: cooperative HENMT Common normals: normocephalic, hearing grossly normal bilaterally and moist oral mucous membranes Head and scalp: normocephalic Eye Common normals: PERRL Pupil: PERRL Neck & C-Spine Common normals: full ROM General: normal visual inspection Cervical spine: cervical ROM abnormal, pain with cervical ROM, cervical spine tenderness, paracervical muscle tenderness and other (positive spurlings ); no paracervical muscle spasm, no trapezius muscle tenderness and Lhermitte's sign negative Other: strength 4/5 in RUE 5/5 in LUE sensation intact BUE negative murphys Chest Common normals: inspection of chest normal Respiratory Common normals: normal respiratory effort, no retractions and no use of accessory muscles Neuro Common normals: oriented x3, CN's II-XII intact bilaterally, moves all extremities, no focal motor deficits and no sensory deficits noted Sensorium/orientation: alert Motor exam: no movement abnormalities noted and strength abnormal Psych Common normals: mental status grossly normal, thought process normal, cooperative, affect normal, speech normal and activity/motor behavior normal Speech: normal speech Thought process: normal thought process Results Additional Findings Additional findings: If on a controlled substance or opioids, I have checked an [place] report on this patient and there are no aberrancies noted in the prescribing history.??If on a controlled substance or opioid a drug screen was completed and reviewed within the last year, and if there has not been a drug screen completed we ordered one today to monitor higher risk, state monitored pain medication use. As part of providing excellent, safe, comprehensive care, the following was completed at our patient's visit: 1. A medication reconciliation and review to ensure accurate knowledge of current/active medications, including asking our patients to inform us about any [id number] medications or herbal remedies/nutritional supplements/alternative remedies. 2. A review to specifically ensure our patients have had annual screening for screening for depression, screening for tobacco use, and screening for unhealthy alcohol use. For concerning screenings had a discussion with the patient, provided patient education, and recommended follow-up with primary care provider when appropriate. If patient noted with a risk of falling, they received education on strength, gait, and balance training to prevent future risk of falling. Assessment and Plan Assessment and Plan (1) Cervical stenosis of spinal canal: (2) Cervical spondylosis: (3) Cervical radiculopathy: Plan increase gabapentin 900mg BID, risks vs benefits reviewed continue f/u with neurology and NS f/u 3 months for medication management
== END 2024-03-22 13:18 | disposition home or self-care (01) ==
PROVIDERS: PCP Nurse Practitioner; Visit Provider Nurse Practitioner
DX: M48.02 Spinal stenosis, cervical region (principal); M47.812 Spondylosis without myelopathy or radiculopathy, cervical region; M54.12 Radiculopathy, cervical region
CPT/HCPCS: G0463

== ENCOUNTER 2024-03-31 11:12 | Outpatient (OUT) | payer OTHER, SELFPAY ==
--- OUTSIDE RECORDS SUMMARY | 2024-03-31 11:18 | XMS_ITS | CCD ---
Author Organization [facility] Care Team Providers Care Keno Writer Name Role Phone AICHHOLZ, FELT HAT INSPECTOR AND PACKER CARMELA Admitting Unavailable AICHHOLZ, FELT HAT INSPECTOR AND PACKER CARMELA Attending Unavailable AICHHOLZ, FELT HAT INSPECTOR AND PACKER CARMELA Primary Care Unavailable AICHHOLZ, FELT HAT INSPECTOR AND PACKER CARMELA Consulting Unavailable AICHHOLZ, FELT HAT INSPECTOR AND PACKER CARMELA Admitting Unavailable AICHHOLZ, FELT HAT INSPECTOR AND PACKER CARMELA Attending Unavailable AICHHOLZ, FELT HAT INSPECTOR AND PACKER CARMELA Primary Care Unavailable AICHHOLZ, FELT HAT INSPECTOR AND PACKER CARMELA Consulting Unavailable AICHHOLZ, FELT HAT INSPECTOR AND PACKER CARMELA Admitting Unavailable AICHHOLZ, FELT HAT INSPECTOR AND PACKER CARMELA Attending Unavailable AICHHOLZ, FELT HAT INSPECTOR AND PACKER CARMELA Primary Care Unavailable AICHHOLZ, FELT HAT INSPECTOR AND PACKER CARMELA Consulting Unavailable AICHHOLZ, FELT HAT INSPECTOR AND PACKER CARMELA Admitting Unavailable AICHHOLZ, FELT HAT INSPECTOR AND PACKER CARMELA Attending Unavailable AICHHOLZ, FELT HAT INSPECTOR AND PACKER CARMELA Primary Care Unavailable AICHHOLZ, FELT HAT INSPECTOR AND PACKER CARMELA Consulting Unavailable CLEVELANDTALISA, FREDYAB Attending Unavailable Aichholz, Carmela J Primary Care Provider [phone] ORLY Comer Attending Provider ORLY Comer Attending Provider Irwin OLSON, Andandre Cantrell Attending Unavailable Irwin OLSON, Andrius Vytautana maria Attending Unavailable Irwin OLSON, Andrius [place]yta[place]ana maria Attending Unavailable ORLY Comer Attending Provider DO Milton Appiah Attending Provider Carmela Lester Primary Care Provider Milton Appiah DO Attending Provider [phone] Trevon GAS INSPECTOR, Carmela Unavailable Parviz Stewart MD Primary Care Provider Trevon GAS INSPECTOR, Carmela Unavailable Milton Appiah Attending Unavailable Milton Appiah N Admitting Unavailable Erika Lestera J Primary Care Unavailable Td, Milton N Attending Unavailable Td, Milton N Admitting Unavailable Erika Lestera J Primary Care Unavailable Nahomi, Loly Admitting Unavailable Trevon Carmela J Primary Care Unavailable Nahomi, Loly Attending Unavailable Milton Appiah N Attending Unavailable Td, Milton N Admitting Unavailable Trevon Carmela J Primary Care Unavailable TREVON, CARMELA Attending Unavailable CARMELA LESTER Attending Unavailable CARMELA LESTER Attending Unavailable TREVON, CARMELA Attending Unavailable ASHUTOSH QUINTANA Attending Unavailable ERIKA LESTERA Referring Unavailable DEN ESPINOZA Attending Unavailable MILTON APPIAH Referring Unavailable Allergies Allergy Classification Reported Allergen(s) Allergy Type Date of Onset Reaction(s) Facility (1 source) Desonide Drug Allergy 12-02-2012 [facility] Repository (8 sources) Wound Dressing Adhesive Drug Allergy 03-01-2014 [facility] Medications Current Medications Medication Drug Class(es) Dates Sig (Normalized) Sig (Original) allopurinol 300 mg oral tablet (7 sources) Xanthine Oxidase Inhibitor Start: 10-06-2023 Allopurinol 300 mg tablet Active MG PO October 05, 2023 11:00pm Start: 10-06-2023 Allopurinol Ac tive MG PO October 06, 2023 12:00am aspirin 81 mg delayed release oral tablet (7 sources) Platelet Aggregation Inhibitor, Nonsteroidal Anti-inflammatory Drug Start: 10-06-2023 Aspirin (Adult Lo w Dose Aspirin) 81 mg tablet,delayed release (DR/EC) Active 81 MG PO Daily October 05, 2023 11:00pm atorvastatin 80 mg oral tablet (17 sources) HMG-CoA Reductase Inhibitor Start: 10-06-2023 Atorvastatin Active MG PO October 06, 2023 12:00am Start: 08-10-2023 End: 05-29-2024 take 1 tablet by mouth at bedtime atorvastatin (Lipitor) 80 MG tablet Indications: Coronary artery disease involving [place] coronary artery of [place] heart without angina pectoris (CMS/HCC) Take 1 tablet (80 mg) by mouth at bedtime Take pill in the evening time not morning 90 tablet 1 02/29/2024 05/29/2024 Active ezetimibe 10 mg oral tablet (17 sources) Dietary Cholesterol Absorption Inhibitor Start: 10-06-2023 Ezetimibe Active MG PO October 06, 2023 12:00am Start: 08-10-2023 End: 05-29-2024 take 1 tablet by mouth once daily ezetimibe (Zetia) 10 MG tablet Indications: Coronary artery disease involving [place] coronary artery of [place] heart without angina pectoris (CMS/HCC) Take 1 tablet (10 mg) by mouth Daily 90 tablet 1 02/29/2024 05/29/2024 Active gabapentin 300 mg oral capsule (18 sources) Anti-epileptic Agent Start: 12-26-2023 take 2 capsules by mouth three times daily as needed Gabapentin 300 mg capsule Active 600 MG PO Three times daily as needed December 26, 2023 9:04am Start: 12-26-2023 take 600 mg by mouth three times daily Gabapentin Active 600 MG PO Three times daily December 26, 2023 10:04am Start: 10-06-2023 End: 12-26-2023 Gabapentin Discontinued MG P O October 06, 2023 12:00am December 26, 2023 10:06am Start: 08-10-2023 End: 02-20-2024 take 1 capsule by mouth in the morning gabapentin (Neurontin) 300 MG capsule Indications: Neuropathy Take 1 capsule (300 mg) by mouth in the morning and 1 capsule (300 mg) in the evening and 1 capsule (300 mg) before bedtime. Take 300 mg by mouth in the morning and 300 mg in the evening and 300 mg before bedtime.. 270 capsule 1 11/22/2023 Active 24 hr isosorbide mononitrate 120 mg extended release oral tablet (15 sources) Nitrate Vasodilator Start: 10-06-2023 take 1 tablet by mouth every twenty-four hours Isosorbide Mononitrate 120 mg tablet extended release 24 hr Active MG PO October 05, 2023 11:00pm Start: 08-10-2023 End: 02-20-2024 take 1 tablet by mouth once daily in the morning isosorbide mononitrate ER (Imdur) 120 MG 24 hr tablet Indications: Coronary artery disease involving [place] coronary artery of [place] heart without angina pectoris (CMS/HCC) , Essential hypertension (CMS/HCC) Take 1 tablet (120 mg) by mouth Daily Do not crush or chew. Take 120 mg by mouth in the morning. Do not crush or chew. . 90 tablet 1 11/22/2023 Active levothyroxine sodium 0.075 mg oral tablet (15 sources) l-Thyroxine Start: 10-06-2023 Levothyroxine Active MCG PO October 06, 2023 12:00am Start: 08-10-2023 End: 02-20-2024 take 1 tablet by mouth every hour before mealtime levothyroxine (Synthroid, Levoxyl) 75 MCG tablet Indications: Hypothyroidism (acquired) (CMS/HCC) Take 1 tablet (75 mcg) by mouth in the morning. Take before meals. Take by mouth first thing in the morning at least 1 hour prior to any other food/drink/meds. 90 tablet 1 11/22/2023 Active lisinopril 20 mg oral tablet (15 sources) Angiotensin Converting Enzyme Inhibitor Start: 10-06-2023 Lisinopril Active MG PO October 06, 2023 12:00am Start: 08-10-2023 End: 02-20-2024 take 1 tablet by mouth in the morning lisinopril 20 MG tablet Indications: Essential hypertension (CMS/HCC) , Primary hypertension (CMS/HCC) Take 1 tablet (20 mg) by mouth in the morning and 1 tablet (20 mg) before bedtime. 180 tablet 1 11/22/2023 Active metoprolol tartrate 25 mg oral tablet (20 sources) beta-Adrenergic Sara Start: 03-14-2024 End: 04-13-2024 take 1 tablet by mouth in the morning metoprolol tartrate (Lopressor) 25 MG tablet Indications: Essential hypertension (CMS/HCC) Take 1 tablet (25 mg) by mouth in the morning and 1 tablet (25 mg) before bedtime. 60 tablet 1 03/14/2024 04/13/2024 Active Start: 01-13-2024 End: 02-12-2024 take 1 tablet by mouth in the morning metoprolol tartrate (Lopressor) 25 MG tablet Indications: Essential hypertension (CMS/HCC) Take 1 tablet (25 mg) by mouth in the morning and 1 tablet (25 mg) before bedtime. 60 tablet 1 01/13/2024 Active Start: 12-26-2023 Metoprolol Tar trate 100 mg tablet Active 125 MG PO Twice daily December 26, 2023 9:05am Start: 12-26-2023 take 125 mg by mouth twice daily Metoprolol Tartrate Active 125 MG PO Twice daily December 26, 2023 10:05am Start: 10-06-2023 End: 12-26-2023 Metoprolol Tartrate Disconti nued MG PO October 06, 2023 12:00am December 26, 2023 10:06am Start: 08-10-2023 End: 02-20-2024 take 1 tablet by mouth in the morning metoprolol tartrate (Lopressor) 100 MG tablet Indications: Essential hypertension (CMS/HCC) , Primary hypertension (CMS/HCC) Take 1 tablet (100 mg) by mouth in the morning and 1 tablet (100 mg) before bedtime. 180 tablet 1 11/22/2023 Active Start: 08-10-2023 End: 12-22-2023 take 1 tablet by mouth in the morning metoprolol tartrate (Lopressor) 25 MG tablet Indications: Essential hypertension (CMS/HCC) Take 1 tablet (25 mg) by mouth in the morning and 1 tablet (25 mg) before bedtime. 60 tablet 1 11/22/2023 12/22/2023 Active Nitroglycerin (11 sources) Nitrate Vasodilator Start: 12-26-2023 Nitroglyce rin Active MG SUBLINGUAL December 26, 2023 12:00am Start: 05-10-2023 End: 12-25-2023 nitroglycerin (Nitrostat) 0. 4 MG SL tablet Indications: Coronary artery disease involving [place] coronary artery of [place] heart without angina pectoris (CMS/HCC) Place 1 tablet (0.4 mg) under the tongue every 5 (five) minutes if needed for chest pain If after 3 doses still chest pain, go to ER/call 911 25 tablet 11/25/2023 Active Nitroglycerin 0.4 mg tablet, sublingual (1 source) Start: 12-26-2023 Nitroglycerin 0.4 mg tablet, sublingual Active MG SUBLINGUAL December 25, 2023 11:00pm tiZANidine 4 mg oral tablet (13 sources) Central alpha-2 Adrenergic Agonist Start: 10-06-2023 Tizanidine Active MG PO October 06, 2023 12:00am Start: 08-10-2023 tiZANidine (Za naflex) 4 MG tablet Indications: Trapezius muscle spasm Take 1 tablet (4 mg) by mouth as needed at bedtime for muscle spasms for up to 15 days May cut pill in half and take 1/2 pill at bedtime 15 tablet 1 08/10/2023 Active verapamil hydrochloride 80 mg oral tablet (15 sources) Calcium Channel Sara Start: 10-06-2023 Verapamil Active MG PO October 06, 2023 12:00am Start: 08-10-2023 End: 02-20-2024 take 1 tablet by mouth in the morning, then take 1 tablet by mouth in the evening, then take 1 tablet by mouth at bedtime verapamil (Calan) 80 MG tablet Indications: Essential hypertension (CMS/HCC) , Primary hypertension (CMS/HCC) Take 1 tablet (80 mg) by mouth in the morning and 1 tablet (80 mg) in the evening and 1 tablet (80 mg) before bedtime. 270 tablet 1 11/22/2023 Active Problems Active Problems Problem Classification Problem Date Documented Date Episodic/Chronic Acute myocardial infarction (8 sources) Myocardial infarction; Translations: [Acute myocardial infarction, unspecified] Onset: 05-10-2023 05-10-2023 Chronic Coronary atherosclerosis and other heart disease (20 sources) Atherosclerotic heart disease of [place] coronary artery without angina pectoris; Translations: [Angina pectoris] Onset: 02-25-2011 02-07-2023 Chronic Disorders of lipid metabolism (13 sources) Pure hyperglyceridemia; Translations: [Hyperlipidemia, unspecified] Onset: 02-25-2011 Chronic Esophageal disorders (8 sources) Gastroesophageal reflux disease; Translations: [Gastro-esophageal reflux disease without esophagitis] Onset: 05-10-2023 05-10-2023 Chronic Essential hypertension (15 sources) Essential (primary) hypertension; Translations: [Hypertensive disorder] Onset: 06-29-2011 Chronic Gout and other crystal arthropathies (17 sources) Gout, unspecified; Translations: [Primary gout] Onset: 01-26-2022 02-07-2023 Chronic Malaise and fatigue (1 source) Other fatigue; Translations: [OTHER FATIGUE] Onset: 07-24-2022 Episodic Menstrual disorders (8 sources) Menorrhagia; Translations: [Excessive and frequent menstruation with regular cycle] Onset: 05-10-2023 05-10-2023 Chronic Nutritional deficiencies (8 sources) Vitamin D deficiency; Translations: [Vitamin D deficiency, unspecified] Onset: 05-10-2023 05-10-2023 Chronic Other connective tissue disease (6 sources) Pain in upper limb; Translations: [Pain in arm, unspecified] 10-06-2023 Episodic Other connective tissue disease (12 sources) Pain in arm, unspecified; Translations: [Pain in limb] 10-06-2023 Episodic Other connective tissue disease (1 source) Pain in right arm; Translations: [Pain in right arm] Onset: 03-02-2024 Episodic Other nervous system disorders (6 sources) Ulnar neuropathy; Translations: [Lesion of ulnar nerve, unspecified upper limb] 10-06-2023 Chronic Other nervous system disorders (11 sources) Lesion of ulnar nerve, unspecified upper limb; Translations: [Lesion of ulnar nerve] Onset: 02-01-2024 10-06-2023 Chronic Other nervous system disorders (9 sources) Neuropathy; Translations: [Polyneuropathy, unspecified] Onset: 05-10-2023 05-10-2023 Chronic Other nervous system disorders (8 sources) Sensory neuropathy; Translations: [Polyneuropathy, unspecified] Onset: 09-26-2023 09-26-2023 Chronic Other nervous system disorders (2 sources) Idiopathic peripheral neuropathy; Translations: [Hereditary and idiopathic neuropathy, unspecified] 03-26-2024 Chronic Other nervous system disorders (2 sources) Numbness and tingling sensation of skin; Translations: [Anesthesia of skin] 03-26-2024 Episodic Other non-traumatic joint disorders (2 sources) Joint pain; Translations: [Pain in unspecified joint] 03-26-2024 Episodic Other nutritional; endocrine; and metabolic disorders (1 source) Overweight; Translations: [OVERWEIGHT] Onset: 07-24-2022 Episodic Other upper respiratory disease (8 sources) Seasonal allergy; Translations: [Other seasonal allergic rhinitis] Onset: 05-10-2023 05-10-2023 Chronic Peripheral and visceral atherosclerosis (8 sources) Peripheral vascular disease, unspecified; Translations: [Peripheral vascular disease, unspecified] Onset: 05-10-2023 05-10-2023 Chronic Residual codes; unclassified (8 sources) Obstructive sleep apnea syndrome; Translations: [Obstructive sleep apnea (adult) (pediatric)] Onset: 09-26-2023 09-26-2023 Chronic Spondylosis; intervertebral disc disorders; other back problems (8 sources) Pain in cervical spine; Translations: [Cervical disc disorder, unspecified, unspecified cervical region] Onset: 07-11-2023 07-11-2023 Chronic Thyroid disorders (14 sources) Hypothyroidism, unspecified; Translations: [Acquired hypothyroidism] Onset: 01-26-2022 Chronic Past or Other Problems Problem Classification Problem Date Documented Da te Episodic/Chronic Chronic obstructive pulmonary disease and bronchiectasis (8 sources) Bronchitis; Translations: [Bronchitis, not specified as acute or chronic] Onset: 02-07-2023 Resolved: 05-10-2023 05-10-2023 Episodic Coma; stupor; and brain damage (8 sources) Daytime somnolence; Translations: [Somnolence] Onset: 09-26-2023 09-26-2023 Episodic Fracture of lower limb (8 sources) Closed fracture of head of fibula; Translations: [Other fracture of upper and lower end of unspecified fibula, subsequent encounter for closed fracture with routine healing] Onset: 05-10-2023 Resolved: 05-10-2023 05-10-2023 Episodic Genitourinary symptoms and ill-defined conditions (8 sources) Asymptomatic microscopic hematuria; Translations: [Asymptomatic microscopic hematuria] Onset: 05-10-2023 05-10-2023 Episodic Nutritional deficiencies (8 sources) Cobalamin deficiency; Translations: [Deficiency of other specified B group vitamins] Onset: 05-10-2023 05-10-2023 Episodic Other connective tissue disease (8 sources) Pain of bilateral hands; Translations: [Pain in right hand] Onset: 05-10-2023 05-10-2023 Episodic Other connective tissue disease (17 sources) Muscle spasm of cervical muscle of neck; Translations: [Other muscle spasm] Onset: 05-10-2023 Resolved: 05-10-2023 05-10-2023 Episodic Other lower respiratory disease (8 sources) Snoring; Translations: [Snoring] Onset: 05-10-2023 05-10-2023 Episodic Other nervous system disorders (8 sources) Paresthesia; Translations: [Paresthesia of skin] Onset: 09-26-2023 09-26-2023 Episodic Residual codes; unclassified (8 sources) Finding of systemic arterial pressure; Translations: [Other general symptoms and signs] Onset: 05-10-2023 05-10-2023 Episodic Residual codes; unclassified (8 sources) Tobacco user; Translations: [Tobacco use] Onset: 05-10-2023 05-10-2023 Episodic Spondylosis; intervertebral disc disorders; other back problems (20 sources) Cervical radiculopathy; Translations: [Radiculopathy, cervical region] Onset: 05-10-2023 10-06-2023 Episodic Results Test Name Value Interpretation Reference Range Facil ity MR head/brain wo/w conon MR head/brain wo/w con [facility] [place] [address] MRI Report Signed Patient: Diane Canas MR#: [id number] 98 : 1970 Acct:[id number] Age/Sex: 54 / F ADM Date: 03/02/24 Loc: MR Room: Type: [facility] Attending Dr: Milton Appiah DO Copies to: Milton Appiah DO Ordering Provider: Milton Appiah DO Date of Service: 03/02/24 MR/MR head/brain wo/w con: M79.601 - Pain in right arm MRI BRAIN WITHOUT AND WITH INTRAVENOUS CONTRAST CLINICAL DATA: Neck and right arm pain with numbness and tingling. COMPARISON: None Multiecho, multiplanar imaging of the brain was performed before and after intravenous administration of 14 mL of ProHance. The ventricles are normal in size and position. There are a few foci of increased T2 and FLAIR signal within the periventricular and subcortical white matter. This is nonspecific however differential could include a microvascular disease and demyelination. There are no additional areas of abnormal signal intensity or enhancement within the supra or infratentorial brain. There is no restricted diffusion to suggest a recent ischemic event. No extra-axial collections or mass effect are seen. No midline abnormalities are noted. There is minimal mucosal thickening involving a left ethmoid air cell. The remaining imaged paranasal sinuses and mastoid air cells are clear. MR/MR head/brain wo/w con IMPRESSION: MINIMAL NONSPECIFIC WHITE MATTER CHANGE. NO ACUTE INTRACRANIAL FINDINGS. Impression dictated by: Gini Solis M.D.03/02/2024 11:22 PM Dictation Location: [place] [address] Transcribed By: [facility] 03/02/242321 Dictated By: Gini Solis MD 03/02/242311 Signed By: 03/02/242321 Normal [facility] MR cervical spine wo conon 1 03-14-2023 MR cervical spine wo con [facility] [place] [address] [place] [address] MRI Report Signed Patient: Diane Canas MR#: [id number] 98 : 1970 Acct:[id number] Age/Sex: 53 / F ADM Date: 01/13/24 Loc: MR Room: Type: [facility] Attending Dr: Milton Appiah DO Copies to: Milton Appiah DO Ordering Provider: Milton Appiah DO Date of Service: 01/13/24 MR/MR cervical spine wo con: M54.12 MRI Cervical Spine without contrast TECHNIQUE: Multiplanar T1 and T2-weighted imaging of the cervical spine obtained. HISTORY: Neck and bilateral upper extremity pain and weakness for 2 years COMPARISON: None BONY ALIGNMENT: Straightening of cervical lordosis BONY LESION: None CERVICAL CORD: No significant demyelination. SKULL BASE: unremarkable. PREVERTEBRAL SOFT TISSUES: Unremarkable NASOPHARYNGEAL REGION: unremarkable. VERTEBRAL ARTERIES: unremarkable. POSTSURGICAL CHANGES: None CERVICAL SOFT TISSUES: Unremarkable C1-2 LEVEL: Unremarkable C2-3: Mild spondylosis C3-4: Moderate spondylosis. Diffuse disc bulge and RIGHT paracentral disc protrusion and osteophyte complex. Moderate crowding the cord. No cord edema or hemorrhage. Moderate RIGHT and mild LEFT neural foraminal narrowing C4-5: Moderate spondylosis. Diffuse disc bulge. Mild crowding the cord. No cord edema or hemorrhage. Patent neural foramen C5-6: Extensive spondylosis. Diffuse disc bulge and endplate spurring. Mild crowding the cord. No cord edema or hemorrhage. Mild bilateral neural foraminal narrowing C6-7: Extensive spondylosis. Diffuse disc bulge and endplate spurring. Mild crowding the cord. No cord edema or hemorrhage. Patent neural foramen. C7-T1: Unremarkable MR/MR cervical spine wo con IMPRESSION: Multilevel discovertebral degenerative changes. Multiple levels of crowding the cord greatest at the C3-4 level. No cord edema or hemorrhage. Impression dictated by: Dank Camara M.D.01/13/2024 9:02 PM Dictation Location: [place] [address] Transcribed By: [facility] 01/13/242101 Dictated By: Dank Camara DO 01/13/242053 Signed By: 01/13/242101 Normal [facility] XR cerv spine AP/LAT/FLX/EXT on 10-27-2023 XR cerv spine AP/LAT/FLX/EXT [facility] [place] [address] [place] [address] XRay Report Signed Patient: Diane Canas MR#: [id number] 98 : 1970 Acct:[id number] Age/Sex: 53 / F ADM Date: 10/27/23 Loc: XD Room: Type: [facility] Attending Dr: Loly Comer APRN Copies [...] Dank Camara M.D.10/27/2023 4:13 PM Dictation Location: [place] [address] Transcribed By: [facility] 10/27/231612 Dictated By: Dank Camara DO 10/27/231610 Signed By: 10/27/231612 Normal [facility] Office Visiton 06-08-2023 Follow-up visit [id number] Tayler Canas 1970 F Date Provider Department Center 06/08/2023 Kira-MIAH THOMPSON [facility] Family History Problem Relation Age of Onset Coronary artery disease Father Family Status - Relation Status Age at Father Level of Service:[address] [place] OFFICE/OUTPATIENT NEW LOW MDM [address] [facility] CBC AUTO DIFFon 07-22-2022 BASO # 0.1 103/ul Normal 0.0-0.1 [facility] Comment on above: Performed By: #### C BC #### [facility] [address] [place] [address] Dr. Candy Cortez Basophils/100 WBC (Bld) 0.6 % Normal 0.2-2.0 [facility] Comment on above: Performed By: #### C BC #### [facility] [address] [place] [address] Dr. Candy Cortez EO # 0.3 103/ul Normal 0.0-0.7 [facility] Comment on above: Performed By: #### C BC #### [facility] [address] [place] [address] [address] Candy Cortez Eosinophils/100 WBC (Bld) 2.8 % Normal 0.9-7.0 [facility] Comment on above: Performed By: #### C BC #### [facility] [address] [place] [address] Dr. Candy Cortez Erythrocyte distribution width (RBC) [Ratio] 11.9 % Normal 11.0-15.0 [facility] Comment on above: Performed By: #### C BC #### [facility] [address] [place] [address] Dr. Candy Cortez Hematocrit (Bld) [Volume fraction] 39.5 % Normal 36.0-48.0 [facility] Comment on above: Performed By: #### C BC #### [facility] [address] [place] [address] Dr. Candy Cortez Hemoglobin (Bld) [Mass/Vol] 12.8 g/dL Normal 12.0-16.0 [facility] Comment on above: Performed By: #### C BC #### [facility] [address] [place] [address] Dr. Candy Cortez IG # 0.04 10e3/ul Critically high 0.00-0.03 [facility] Comment on above: Performed By: #### C BC #### [facility] [address] [place] [address] Dr. Candy Cortez IG % 0.4 % Normal 0.0-0.5 [facility] Comment on above: Performed By: #### C BC #### [facility] [address] [place] [address] Dr. Candy Cortez LYMPH # 3.2 103/ul Normal 1.2-3.8 [facility] Comment on above: Performed By: #### C BC #### [facility] [address] [place] [address] Dr. Candy Cortez Lymphocytes/100 WBC (Bld) 33.9 % Normal 20.5-60.0 [facility] Comment on above: Performed By: #### C BC #### [facility] [address] [place] [address] Dr. Candy Cortez MANUAL DIFF REQ NO Normal [facility] Comment on above: Performed By: #### C BC #### [facility] [address] [place] [address] Dr. Candy Cortez MCH (RBC) [Entitic mass] 31.3 pg Normal 26.7-34.0 [facility] Comment on above: Performed By: #### C BC #### [facility] [address] [place] [address] Dr. Candy Cortez MCHC (RBC) [Mass/Vol] 32.4 g/dL Normal 29.9-35.2 [facility] Comment on above: Performed By: #### C BC #### [facility] [address] [address] [address] Candy Cortez MCV (RBC) [Entitic vol] 96.6 fL Normal 81.0-99.0 [facility] Comment on above: Performed By: #### C BC #### [facility] [address] [address] [address] Candy Coretz MONO # 0.8 103/ul Normal 0.3-0.8 [facility] Comment on above: Performed By: #### C BC #### [facility] [address] [address] [address] Candy Cortez Monocytes/100 WBC (Bld) 8.3 % Normal 1.7-12.0 [facility] Comment on above: Performed By: #### C BC #### [facility] [address] [address] [address] Candy Cortez NEUT # 5.1 103/ul Normal 1.4-6.5 [facility] Comment on above: Performed By: #### C BC #### [facility] [address] [place] [address] Dr. Candy Cortez Neutrophils/100 WBC (Bld) 54.0 % Normal 43.0-75.0 [facility] Comment on above: Performed By: #### C BC #### [facility] [address] [place] [address] Dr. Candy Cortez Platelet mean volume (Bld) [Entitic vol] 11.6 fL Normal 9.5-13.5 [facility] Comment on above: Performed By: #### C BC #### [facility] [address] [place] [address] Dr. Candy Cortez PLT 258 103/ul Normal 150-450 [facility] Comment on above: Performed By: #### C BC #### [facility] [address] [address] [address] Candy Cortez RBC 4.09 106/ul Critically low 4.20-5.40 [facility] Comment on above: Performed By: #### C BC #### [facility] [address] [place] [address] Dr. Candy Cortez WBC 9.4 103/ul Normal 4.0-11.0 [facility] Comment on above: Performed By: #### C BC #### [facility] [address] [place] [address] Dr. Candy Cortez FREE T4on 07-22-2022 Free T4 [Mass/Vol] 0.91 ng/dL Normal 0.76-1.[address] [facility] Comment on above: Performed By: #### T SH, URIC, CMP, LIPID #### [facility] [address] [place] [address] Dr. Candy Cortez IRONon 07-22-2022 Iron [Mass/Vol] 106.0 ug/dL Normal 50.0-170.0 [facility] Comment on above: Performed By: #### T SH, URIC, CMP, LIPID #### [facility] [address] [place] [address] Dr. Candy Cortez PROF 14(COMP METB)on 023 Albumin [Mass/Vol] 3.7 g/dL Normal 3.4-5.[address] [facility] Comment on above: Performed By: #### T SH, CMP #### [facility] [address] [place] [address] Dr. Candy Cortez Albumin/Globulin [Mass ratio] 1.0 {ratio} Normal [facility] Comment on above: Performed By: #### T SH, CMP #### [facility] [address] [place] [address] Dr. Candy Cortez ALP [Catalytic activity/Vol] 84 U/L Normal 46-116 [facility] Comment on above: Performed By: #### T SH, CMP #### [facility] [address] [place] [address] Dr. Candy Cortez ALT [Catalytic activity/Vol] 36 U/L Normal 14-59 [facility] Comment on above: Performed By: #### T SH, CMP #### [facility] [address] [place] [address] Dr. Candy Cortez Anion gap [Moles/Vol] 11.6 mmol/L Normal [facility] Comment on above: Performed By: #### T SH, CMP #### [facility] [address] [place] [address] Dr. Candy Cortez AST [Catalytic activity/Vol] 30 U/L Normal 15-37 [facility] Comment on above: Performed By: #### T SH, CMP #### [facility] [address] [place] [address] Dr. Candy Cortez Bilirubin [Mass/Vol] 0.4 mg/dL Normal 0.2-1.0 [facility] Comment on above: Performed By: #### T SH, CMP #### [facility] [address] [place] [address] Dr. Candy Cortez Calcium [Mass/Vol] 9.4 mg/dL Normal 8.5-10.1 [facility] Comment on above: Performed By: #### T SH, CMP #### [facility] [address] [place] [address] Dr. Candy Cortez Chloride [Moles/Vol] 105 mmol/L Normal 98-107 [facility] Comment on above: Performed By: #### T SH, CMP #### [facility] [address] [place] [address] Dr. Candy Cortez CO2 [Moles/Vol] 29.2 mmol/L Normal 21.0-32.0 [facility] Comment on above: Performed By: #### T SH, CMP #### [facility] [address] [place] [address] Dr. Candy Cortez Creatinine [Mass/Vol] 0.78 mg/dL Normal 0.55-1.02 [facility] Comment on above: Performed By: #### T SH, CMP #### [facility] [address] [place] [address] Dr. Candy Cortez EGFR-AF [place]IZ[place] >60 Normal >=60 [facility] Comment on above: Performed By: #### T SH, CMP #### [facility] [address] [place] [address] Dr. Candy Cortez EGFR-NON AF CITIZEN OF [place] >60 Normal >=60 [facility] Comment on above: Performed By: #### T SH, CMP #### [facility] [address] [place] [address] Dr. Candy Cortez Globulin (S) [Mass/Vol] 3.8 g/dL Normal [facility] Comment on above: Performed By: #### T SH, CMP #### [facility] [address] [place] [address] Dr. Candy Cortez Glucose [Mass/Vol] 95 mg/dL Normal 74-106 [facility] Comment on above: Performed By: #### T SH, CMP #### [facility] [address] [place] [address] Dr. Candy Cortez Potassium [Moles/Vol] 4.8 mmol/L Normal 3.5-5.1 [facility] Comment on above: Performed By: #### T SH, CMP #### [facility] [address] [place] [address] Dr. Candy Cortez Protein [Mass/Vol] 7.5 g/dL Normal 6.4-8.2 [facility] Comment on above: Performed By: #### T SH, CMP #### [facility] [address] [place] [address] Dr. Candy Cortez Sodium [Moles/Vol] 141 mmol/L Normal 136-145 [facility] Comment on above: Performed By: #### T SH, CMP #### [facility] [address] [place] [address] Dr. Candy Cortez Urea nitrogen [Mass/Vol] 13.0 mg/dL Normal 7.0-18.0 [facility] Comment on above: Performed By: #### T SH, CMP #### [facility] [address] [place] [address] Dr. Candy Cortez Urea nitrogen/Creatinin e [Mass ratio] 16.7 mg/mg Normal [facility] Comment on above: Performed By: #### T SH, CMP #### [facility] [address] [place] [address] Dr. Candy Cortez TSHon 07-22-2022 TSH 0.818 uIU/mL Normal 0.358-3.740 [facility] Comment on above: Performed By: #### T SH, CMP #### [facility] [address] [place] [address] Dr. Candy Cortez UA RANDOM W/MICROSCOPICon BACTERIA NONE SEEN Normal NONE SEEN [facility] Comment on above: Performed By: #### U AMIC #### [facility] [address] [place] [address] Dr. Candy Cortez Bilirubin Ql (U) Negative Normal NEGATIVE [facility] Comment on above: Performed By: #### U AMIC #### [facility] [address] [place] [address] Dr. Candy Cortez CAST NONE SEEN Normal NONE SEEN [facility] Comment on above: Performed By: #### U AMIC #### [facility] [address] [place] [address] Dr. Candy Cortez Clarity (U) CLEAR Normal CLEAR [facility] Comment on above: Performed By: #### U AMIC #### [facility] [address] [place] [address] Dr. Candy Cortez Color (U) LT. YELLOW Normal YELLOW [facility] Comment on above: Performed By: #### U AMIC #### [facility] [address] [place] [address] Dr. Candy Cortez Crystals LM Nom (Urine sed) NONE SEEN Normal NONE SEEN [facility] Comment on above: Performed By: #### U AMIC #### [facility] [address] [place] [address] Dr. Candy Cortez Epithelial cells LM Ql (Urine sed) RARE Normal NONE SEEN /RARE [facility] Comment on above: Performed By: #### U AMIC #### [facility] [address] [place] [address] Dr. Candy Cortez Glucose Ql (U) Negative Normal NEGATIVE [facility] Comment on above: Performed By: #### U AMIC #### [facility] [address] [place] [address] Dr. Candy Cortez Hemoglobin Ql (U) Negative Normal NEGATIVE [facility] Comment on above: Performed By: #### U AMIC #### [facility] [address] [address] [address] Candy Cortez Ketones Ql (U) Negative Normal NEGATIVE [facility] Comment on above: Performed By: #### U AMIC #### [facility] [address] [address] [address] Candy Cortez LEUKOCYTES Negative Normal NEGATIVE [facility] Comment on above: Performed By: #### U AMIC #### [facility] [address] [address] [address] Candy Cortez MUCOUS NONE SEEN Normal NONE SEEN [facility] Comment on above: Performed By: #### U AMIC #### [facility] [address] [place] [address] Dr. Candy Cortez Nitrite Ql (U) Negative Normal NEGATIVE [facility] Comment on above: Performed By: #### U AMIC #### [facility] [address] [place] [address] Dr. Candy Cortez pH (U) 7.0 [pH] Normal 5-9 [facility] Comment on above: Performed By: #### U AMIC #### [facility] [address] [address] [address] Candy Cortez RBC 0-2 Normal 0-2 [facility] Comment on above: Performed By: #### U AMIC #### [facility] [address] [address] [address] Candy Cortez SPEC GRAVITY <=1.005 Abnormal 1.005-<=1.025 [facility] Comment on above: Performed By: #### U AMIC #### [facility] [address] [address] [address] Candy Cortez UA PROTEIN Negative Normal NEGATIVE/ TRACE [facility] Comment on above: Performed By: #### U AMIC #### [facility] [address] [place] [address] Dr. Candy Cortez Urobilinogen Qn (U) 0.2 {Nicko'U}/dL Normal 0.2 - 1.0 [facility] Comment on above: Performed By: #### U AMIC #### [facility] [address] [place] [address] Dr. Candy Cortez WBC 0-2 Abnormal NONE SEEN [facility] Comment on above: Performed By: #### U AMIC #### [facility] [address] [place] [address] Dr. Candy Cortez VITAMIN B12on 07-22-2022 Cobalamin (Vitamin B12) [Mass/Vol] 201.0 pg/mL Normal 193.0-986.0 [facility] Comment on above: Performed By: #### T SH, URIC, CMP, LIPID #### [facility] [address] [place] [address] Dr. Candy Cortez VITAMIN D 25 OHon 07-22-2022 VIT D 25-OH 14.6 ng/mL Normal [facility] Comment on above: Performed By: #### T SH, URIC, CMP, LIPID #### [facility] [address] [place] [address] Dr. Candy Cortez VIT D RANGES SEE BELOW Normal [facility] Comment on above: Result Comment: <20 ng/mL Vit D deficient 20 - <30 ng/mL Vit D insufficient 30 - 100 ng/mL Vit D sufficient >100 ng/mL Potential Toxicity Performed By: #### T SH, URIC, CMP, LIPID #### [facility] [address] [place] [address] Dr. Candy Cortez LIPID PROFILEon 07-05-2022 CHOL-HDL RATIO NORM SEE BELOW Normal [facility] Comment on above: Result Comment: 3.3 - 4.4 LOW RISK 4.4 - 7.1 AVERAGE RISK 7.1 - 11.0 MODERATE RISK >11.0 HIGH RISK Performed By: #### T SH, URIC, CMP, LIPID #### [facility] [address] [place] [address] Dr. Candy Cortez Cholesterol [Mass/Vol] 162 mg/dL Normal <=200 [facility] Comment on above: Performed By: #### T SH, URIC, CMP, LIPID #### [facility] [address] [address] [address] Candy Cortez Cholesterol in HDL [Mass/Vol] 74 mg/dL Critically high 40-60 [facility] Comment on above: Performed By: #### T SH, URIC, CMP, LIPID #### [facility] [address] [address] [address] Candy Cortez Cholesterol in LDL [Mass/Vol] 54.8 mg/dL Normal [facility] Comment on above: Performed By: #### T SH, URIC, CMP, LIPID #### [facility] [address] [address] [address] Candy Cortez Cholesterol.total/ Cholesterol in HDL [Mass ratio] 2.2 {ratio} Normal [facility] Comment on above: Performed By: #### T SH, URIC, CMP, LIPID #### [facility] [address] [address] [address] Candy Cortez HDL NORMAL > or = 60 mg/dl - LO W CARDIOVASCULAR RISK <40 mg/dl - HIGH CARDIOVASCULAR RISK Normal [facility] Comment on above: Performed By: #### T SH, URIC, CMP, LIPID #### [facility] [address] [address] [address] Candy Cortez LDL CALC NORMAL SEE BELOW Normal [facility] Comment on above: Result Comment: <100 mg/dl OPTIMAL 100 - 129 mg/dl NEAR OR ABOVE OPTIMAL 130 - 159 mg/dl BORDERLINE HIGH 160 - 189 mg/dl HIGH >190 mg/dl VERY HIGH Performed By: #### T SH, URIC, CMP, LIPID #### [facility] [address] [address] [address] Candy Cortez Triglyceride [Mass/Vol] 166 mg/dL Critically high <=150 [facility] Comment on above: Performed By: #### T SH, URIC, CMP, LIPID #### [facility] [address] [address] [address] Candy Cortez VLDL CALC 33.2 mg/dL Normal [facility] Comment on above: Performed By: #### T SH, URIC, CMP, LIPID #### [facility] [address] [address] [address] Candy HUSTONOToshahnaz 07-05-2022 AST [Catalytic activity/Vol] 32 U/L Normal 15-37 [facility] Comment on above: Performed By: #### T SH, URIC, CMP, LIPID #### [facility] [address] [place] [address] Dr. Candy Cortez SGPTon 07-05-2022 ALT [Catalytic activity/Vol] 52 U/L Normal 14-59 [facility] Comment on above: Performed By: #### T SH, URIC, CMP, LIPID #### [facility] [address] [place] [address] Dr. Candy Cortez LIPID PROFILEon 05-10-2022 CHOL-HDL RATIO NORM SEE BELOW Normal [facility] Comment on above: Result Comment: 3.3 - 4.4 LOW RISK 4.4 - 7.1 AVERAGE RISK 7.1 - 11.0 MODERATE RISK >11.0 HIGH RISK Performed By: #### T SH, URIC, CMP, LIPID #### [facility] [address] [address] [address] Candy Cortez Cholesterol [Mass/Vol] 178 mg/dL Normal <=200 [facility] Comment on above: Performed By: #### T SH, URIC, CMP, LIPID #### [facility] [address] [place] [address] Dr. Candy Cortez Cholesterol in HDL [Mass/Vol] 80 mg/dL Critically high 40-60 [facility] Comment on above: Performed By: #### T SH, URIC, CMP, LIPID #### [facility] [address] [place] [address] Dr. Candy Cortez Cholesterol in LDL [Mass/Vol] 43.4 mg/dL Normal [facility] Comment on above: Performed By: #### T SH, URIC, CMP, LIPID #### [facility] [address] [place] [address] Dr. Candy Cortez Cholesterol.total/ Cholesterol in HDL [Mass ratio] 2.2 {ratio} Normal [facility] Comment on above: Performed By: #### T SH, URIC, CMP, LIPID #### [facility] [address] [address] [address] Candy Cortez HDL NORMAL > or = 60 mg/dl - LO W CARDIOVASCULAR RISK <40 mg/dl - HIGH CARDIOVASCULAR RISK Normal [facility] Comment on above: Performed By: #### T SH, URIC, CMP, LIPID #### [facility] [address] [address] [address] Candy Cortez LDL CALC NORMAL SEE BELOW Normal [facility] Comment on above: Result Comment: <100 mg/dl OPTIMAL 100 - 129 mg/dl NEAR OR ABOVE OPTIMAL 130 - 159 mg/dl BORDERLINE HIGH 160 - 189 mg/dl HIGH >190 mg/dl VERY HIGH Performed By: #### T SH, URIC, CMP, LIPID #### [facility] [address] [place] [address] Dr. Candy Cortez Triglyceride [Mass/Vol] 273 mg/dL Critically high <=150 [facility] Comment on above: Performed By: #### T SH, URIC, CMP, LIPID #### [facility] [address] [address] [address] Candy Cortez VLDL CALC 54.6 mg/dL Normal [facility] Comment on above: Performed By: #### T SH, URIC, CMP, LIPID #### [facility] [address] [place] [address] Dr. Candy Cortez CBC AUTO DIFFon 01-22-2022 BASO # 0.1 103/ul Normal 0.0-0.1 [facility] Comment on above: Performed By: #### C BC #### [facility] [address] [place] [address] Dr. Candy Cortez Basophils/100 WBC (Bld) 1.2 % Normal 0.2-2.0 [facility] Comment on above: Performed By: #### C BC #### [facility] [address] [place] [address] Dr. Candy Cortez EO # 0.2 103/ul Normal 0.0-0.7 [facility] Comment on above: Performed By: #### C BC #### [facility] [address] [place] [address] Dr. Candy Cortez Eosinophils/100 WBC (Bld) 2.8 % Normal 0.9-7.0 [facility] Comment on above: Performed By: #### C BC #### [facility] [address] [place] [address] Dr. Candy Cortez Erythrocyte distribution width (RBC) [Ratio] 12.2 % Normal 11.0-15.0 [facility] Comment on above: Performed By: #### C BC #### [facility] [address] [place] [address] Dr. Candy Cortez Hematocrit (Bld) [Volume fraction] 41.0 % Normal 36.0-48.0 [facility] Comment on above: Performed By: #### C BC #### [facility] [address] [place] [address] Dr. Candy Cortez Hemoglobin (Bld) [Mass/Vol] 13.6 g/dL Normal 12.0-16.0 [facility] Comment on above: Performed By: #### C BC #### [facility] [address] [place] [address] Dr. Candy Cortez IG # 0.00 10e3/ul Normal 0.00-0.03 [facility] Comment on above: Performed By: #### C BC #### [facility] [address] [place] [address] Dr. Candy Cortez IG % 0.0 % Normal 0.0-0.5 [facility] Comment on above: Performed By: #### C BC #### [facility] [address] [place] [address] Dr. Candy Cortez LYMPH # 2.7 103/ul Normal 1.2-3.8 [facility] Comment on above: Performed By: #### C BC #### [facility] [address] [place] [address] Dr. Candy Cortez Lymphocytes/100 WBC (Bld) 47.5 % Normal 20.5-60.0 [facility] Comment on above: Performed By: #### C BC #### [facility] [address] [place] [address] Dr. Candy Cortez MANUAL DIFF REQ NO Normal [facility] Comment on above: Performed By: #### C BC #### [facility] [address] [address] [address] Candy Cortez MCH (RBC) [Entitic mass] 32.5 pg Normal 26.7-34.0 [facility] Comment on above: Performed By: #### C BC #### [facility] [address] [place] [address] Dr. Candy Cortez MCHC (RBC) [Mass/Vol] 33.2 g/dL Normal 29.9-35.2 [facility] Comment on above: Performed By: #### C BC #### [facility] [address] [place] [address] Dr. Candy Cortez MCV (RBC) [Entitic vol] 97.9 fL Normal 81.0-99.0 [facility] Comment on above: Performed By: #### C BC #### [facility] [address] [place] [address] Dr. Candy Cortez MONO # 0.5 103/ul Normal 0.3-0.8 [facility] Comment on above: Performed By: #### C BC #### [facility] [address] [place] [address] Dr. Candy Cortez Monocytes/100 WBC (Bld) 8.4 % Normal 1.7-12.0 [facility] Comment on above: Performed By: #### C BC #### [facility] [address] [place] [address] Dr. Candy Cortez NEUT # 2.3 103/ul Normal 1.4-6.5 [facility] Comment on above: Performed By: #### C BC #### [facility] [address] [place] [address] Dr. Candy Cortez Neutrophils/100 WBC (Bld) 40.1 % Critically low 43.0-75.0 [facility] Comment on above: Performed By: #### C BC #### [facility] [address] [place] [address] Dr. Candy Cortez Platelet mean volume (Bld) [Entitic vol] 11.5 fL Normal 9.5-13.5 [facility] Comment on above: Performed By: #### C BC #### [facility] [address] [address] [address] Candy Cortez PLT 305 103/ul Normal 150-450 [facility] Comment on above: Performed By: #### C BC #### [facility] [address] [address] [address] Candy Cortez RBC 4.19 106/ul Critically low 4.20-5.40 [facility] Comment on above: Performed By: #### C BC #### [facility] [address] [address] [address] Candy Cortez WBC 5.7 103/ul Normal 4.0-11.0 [facility] Comment on above: Performed By: #### C BC #### [facility] [address] [place] [address] Dr. Candy Cortez FREE T4on 01-22-2022 Free T4 [Mass/Vol] 0.78 ng/dL Normal 0.76-1.46 [facility] Comment on above: Performed By: #### T SH, URIC, CMP, LIPID #### [facility] [address] [place] [id number] Dr. Candy Cortez LIPID PROFILEon 01-22-2022 CHOL-HDL RATIO NORM SEE BELOW Normal [facility] Comment on above: Result Comment: 3.3 - 4.4 LOW RISK 4.4 - 7.1 AVERAGE RISK 7.1 - 11.0 MODERATE RISK >11.0 HIGH RISK Performed By: #### T SH, URIC, CMP, LIPID #### [facility] [address] [place] [address] Dr. Candy Cortez Cholesterol [Mass/Vol] 167 mg/dL Normal <=200 [facility] Comment on above: Performed By: #### T SH, URIC, CMP, LIPID #### [facility] [address] [place] [address] Dr. Candy Cortez Cholesterol in HDL [Mass/Vol] 64 mg/dL Critically high 40-60 [facility] Comment on above: Performed By: #### T SH, URIC, CMP, LIPID #### [facility] [address] [address] [address] Candy Cortez Cholesterol in LDL [Mass/Vol] 43.6 mg/dL Normal [facility] Comment on above: Performed By: #### T SH, URIC, CMP, LIPID #### [facility] [address] [address] [address] Candy Cortez Cholesterol.total/ Cholesterol in HDL [Mass ratio] 2.6 {ratio} Normal [facility] Comment on above: Performed By: #### T SH, URIC, CMP, LIPID #### [facility] [address] [address] [address] Candy Cortez HDL NORMAL > or = 60 mg/dl - LO W CARDIOVASCULAR RISK <40 mg/dl - HIGH CARDIOVASCULAR RISK Normal [facility] Comment on above: Performed By: #### T SH, URIC, CMP, LIPID #### [facility] [address] [place] [address] Dr. Candy Cortez LDL CALC NORMAL SEE BELOW Normal [facility] Comment on above: Result Comment: <100 mg/dl OPTIMAL 100 - 129 mg/dl NEAR OR ABOVE OPTIMAL 130 - 159 mg/dl BORDERLINE HIGH 160 - 189 mg/dl HIGH >190 mg/dl VERY HIGH Performed By: #### T SH, URIC, CMP, LIPID #### [facility] [address] [address] [address] Candy Cortez Triglyceride [Mass/Vol] 297 mg/dL Critically high <=150 [facility] Comment on above: Performed By: #### T SH, URIC, CMP, LIPID #### [facility] [address] [place] [address] Dr. Candy Cortez VLDL CALC 59.4 mg/dL Normal [facility] Comment on above: Performed By: #### T SH, URIC, CMP, LIPID #### [facility] [address] [place] [address] Dr. Candy Cortez PROF 14(COMP METB)on 022 Albumin [Mass/Vol] 3.6 g/dL Normal 3.4-5.0 [facility] Comment on above: Performed By: #### T SH, URIC, CMP, LIPID #### [facility] [address] [address] [address] Candy Cortez Albumin/Globulin [Mass ratio] 1.0 {ratio} Normal [facility] Comment on above: Performed By: #### T SH, URIC, CMP, LIPID #### [facility] [address] [address] [address] Candy Cortez ALP [Catalytic activity/Vol] 79 U/L Normal 46-116 [facility] Comment on above: Performed By: #### T SH, URIC, CMP, LIPID #### [facility] [address] [address] [address] Candy Cortez ALT [Catalytic activity/Vol] 23 U/L Normal 14-59 [facility] Comment on above: Performed By: #### T SH, URIC, CMP, LIPID #### [facility] [address] [place] [address] Dr. Candy Cortez Anion gap [Moles/Vol] 9.7 mmol/L Normal [facility] Comment on above: Performed By: #### T SH, URIC, CMP, LIPID #### [facility] [address] [place] [address] Dr. Candy Cortez AST [Catalytic activity/Vol] 20 U/L Normal 15-37 [facility] Comment on above: Performed By: #### T SH, URIC, CMP, LIPID #### [facility] [address] [address] [address] Candy Cortez Bilirubin [Mass/Vol] 0.4 mg/dL Normal 0.2-1.0 [facility] Comment on above: Performed By: #### T SH, URIC, CMP, LIPID #### [facility] [address] [address] [address] Candy Cortez Calcium [Mass/Vol] 9.1 mg/dL Normal 8.5-10.1 [facility] Comment on above: Performed By: #### T SH, URIC, CMP, LIPID #### [facility] [address] [address] [address] Candy Cortez Chloride [Moles/Vol] 103 mmol/L Normal 98-107 [facility] Comment on above: Performed By: #### T SH, URIC, CMP, LIPID #### [facility] [address] [place] [address] Dr. Candy Cortez CO2 [Moles/Vol] 29.0 mmol/L Normal 21.0-32.0 [facility] Comment on above: Performed By: #### T SH, URIC, CMP, LIPID #### [facility] [address] [address] [address] Candy Cortez Creatinine [Mass/Vol] 0.72 mg/dL Normal 0.55-1.02 [facility] Comment on above: Performed By: #### T SH, URIC, CMP, LIPID #### [facility] [address] [place] [address] Dr. Candy Cortez EGFR-AF CITIZ[place] >60 Normal >=60 [facility] Comment on above: Performed By: #### T SH, URIC, CMP, LIPID #### [facility] [address] [place] [address] Dr. Candy Cortez EGFR-NON AF CITIZEN OF [place] >60 Normal >=60 [facility] Comment on above: Performed By: #### T SH, URIC, CMP, LIPID #### [facility] [address] [place] [address] Dr. Candy Cortez Globulin (S) [Mass/Vol] 3.7 g/dL Normal [facility] Comment on above: Performed By: #### T SH, URIC, CMP, LIPID #### [facility] [address] [place] [address] Dr. Candy Cortez Glucose [Mass/Vol] 93 mg/dL Normal 74-106 [facility] Comment on above: Performed By: #### T SH, URIC, CMP, LIPID #### [facility] [address] [place] [address] Dr. Candy Cortez Potassium [Moles/Vol] 4.7 mmol/L Normal 3.5-5.1 [facility] Comment on above: Performed By: #### T SH, URIC, CMP, LIPID #### [facility] [address] [place] [address] Dr. Candy Cortez Protein [Mass/Vol] 7.3 g/dL Normal 6.4-8.[address] [facility] Comment on above: Performed By: #### T SH, URIC, CMP, LIPID #### [facility] [address] [place] [address] Dr. Candy Cortez Sodium [Moles/Vol] 137 mmol/L Normal 136-[address] [facility] Comment on above: Performed By: #### T SH, URIC, CMP, LIPID #### [facility] [address] [place] [address] Dr. Candy Cortez Urea nitrogen [Mass/Vol] 12.0 mg/dL Normal 7.0-18.0 [facility] Comment on above: Performed By: #### T SH, URIC, CMP, LIPID #### [facility] [address] [place] [address] Dr. Candy Cortez Urea nitrogen/Creatinin e [Mass ratio] 16.7 mg/mg Normal [facility] Comment on above: Performed By: #### T SH, URIC, CMP, LIPID #### [facility] [address] [place] [address] Dr. Candy Cortez TSHon 01-22-2022 TSH 0.748 uIU/mL Normal 0.358-3.740 [facility] Comment on above: Performed By: #### T SH, URIC, CMP, LIPID #### [facility] [address] [place] [address] Dr. Candy Cortez UA RANDOM W/MICROSCOPICon BACTERIA NONE SEEN Normal NONE SEEN [facility] Comment on above: Performed By: #### U AMIC #### [facility] [address] [place] [address] Dr. Candy Cortez Bilirubin Ql (U) Negative Normal NEGATIVE [facility] Comment on above: Performed By: #### U AMIC #### [facility] [address] [place] [address] Dr. Candy Cortez CAST NONE SEEN Normal NONE SEEN [facility] Comment on above: Performed By: #### U AMIC #### [facility] [address] [address] [address] Candy Cortez Clarity (U) CLEAR Normal CLEAR [facility] Comment on above: Performed By: #### U AMIC #### [facility] [address] [place] [address] Dr. Candy Cortez Color (U) LT. YELLOW Normal YELLOW [facility] Comment on above: Performed By: #### U AMIC #### [facility] [address] [address] [address] Candy Cortez Crystals LM Nom (Urine sed) NONE SEEN Normal NONE SEEN [facility] Comment on above: Performed By: #### U AMIC #### [facility] [address] [place] [address] Dr. Candy Cortez Epithelial cells LM Ql (Urine sed) RARE Normal NONE SEEN /RARE [facility] Comment on above: Performed By: #### U AMIC #### [facility] [address] [place] [address] Dr. Candy Cortez Glucose Ql (U) Negative Normal NEGATIVE [facility] Comment on above: Performed By: #### U AMIC #### [facility] [address] [place] [address] Dr. Candy Cortez Hemoglobin Ql (U) Negative Normal NEGATIVE [facility] Comment on above: Performed By: #### U AMIC #### [facility] [address] [place] [address] Dr. Candy Cortez Ketones Ql (U) Negative Normal NEGATIVE [facility] Comment on above: Performed By: #### U AMIC #### [facility] [address] [place] [address] Dr. Candy Cortez LEUKOCYTES Negative Normal NEGATIVE [facility] Comment on above: Performed By: #### U AMIC #### [facility] [address] [place] [address] Dr. Cadny Cortez MUCOUS TRACE Abnormal NONE SEEN [facility] Comment on above: Performed By: #### U AMIC #### [facility] [address] [place] [address] Dr. Candy Cortez Nitrite Ql (U) Negative Normal NEGATIVE [facility] Comment on above: Performed By: #### U AMIC #### [facility] [address] [place] [address] Dr. Candy Cortez pH (U) 7.0 [pH] Normal 5-9 [facility] Comment on above: Performed By: #### U AMIC #### [facility] [address] [place] [address] Dr. Candy Cortez RBC NONE SEEN Abnormal 0-2 [facility] Comment on above: Performed By: #### U AMIC #### [facility] [address] [place] [address] Dr. Candy Cortez SPEC GRAVITY 1.020 Normal 1.005-<=1.025 [facility] Comment on above: Performed By: #### U AMIC #### [facility] [address] [place] [address] Dr. Candy Cortez UA PROTEIN Negative Normal NEGATIVE/ TRACE [facility] Comment on above: Performed By: #### U AMIC #### [facility] [address] [place] [address] Dr. Candy Cortez Urobilinogen Qn (U) 0.2 {Nicko'U}/dL Normal 0.2 - 1.0 [facility] Comment on above: Performed By: #### U AMIC #### [facility] [address] [place] [address] Dr. Candy Cortez WBC NONE SEEN Normal NONE SEEN [facility] Comment on above: Performed By: #### U AMIC #### [facility] [address] [place] [address] Dr. Candy Cortez URIC ACID SERUMon 01-22-2022 Urate [Mass/Vol] 3.1 mg/dL Normal 2.6-6.0 [facility] Comment on above: Performed By: #### T SH, URIC, CMP, LIPID #### [facility] [address] [place] [address] Dr. Candy Cortez Vital Signs Date Time Vital Sign Value Performing Clinician Faci lity 03-26-2024 15:21-0500 Body height 162.6 cm Den Olga DO Work Phone: [facility] 03-26-2024 15:21-0500 Body mass index (BMI) [Ratio] 27.33 kg/m2 Den Olga DO Work Phone: [facility] 03-26-2024 15:21-0500 Body weight 72.21 kg Den Olga DO Work Phone: [facility] 03-26-2024 15:21-0500 Diastolic blood pressure 88 mm[Hg] Den Olga DO Work Phone: [facility] 03-26-2024 15:21-0500 Heart rate 78 /min Den Olga DO Work Phone: [facility] 03-26-2024 15:21-0500 SaO2% (BldA) [Mass fraction] 98 % Den Olga DO Work Phone: [facility] 03-26-2024 15:21-0500 Systolic blood pressure 136 mm[Hg] Den Olga DO Work Phone: [facility] 01-16-2024 10:52-0500 Body height 162.56 cm Carmela Aichholz Work Phone: [facility] 01-16-2024 10:52-0500 Body mass index (BMI) [Ratio] 27 kg/m2 Carmela Aichholz Work Phone: [facility] 01-16-2024 10:52-0500 Body weight 71.44 kg Carmela Aichholz Work Phone: [facility] 12-26-2023 10:03-0400 Body height 162.56 cm Carmela Aichholz Work Phone: [facility] 12-26-2023 10:03-0400 Body mass index (BMI) [Ratio] 26.9 kg/m2 Carmela Aichholz Work Phone: [facility] 12-26-2023 10:03-0400 Body weight 71.32 kg Carmela Lester Work Phone: [facility] 12-01-2023 12:58-0400 Body height 162.56 cm Carmelaazalia Popeholz Work Phone: [facility] 12-01-2023 12:58-0400 Body mass index (BMI) [Ratio] 27 kg/m2 Carmelaazalia Popeholz Work Phone: [facility] 12-01-2023 12:58-0400 Body weight 71.38 kg Carmelaazalia Rossz Work Phone: [facility] 10-27-2023 13:18-0400 Body weight 70.76 kg Carmelaazalia Rossz Work Phone: [facility] 10-06-2023 14:11-0400 Body weight 70.76 kg [facility] Encounters Encounter Date Encounter Type Care Provider Facility Start: 03-26-2024 End: 03-26-2024 Office consultation new/estab patient 60 min Den Olga DO Work Phone: [facility] Comment on above: Idiopathic periphera l neuropathy (Primary Dx); Numbness and tingling; Arthralgia, unspecified joint Start: 03-26-2024 End: 03-26-2024 ambulatory DEN OLGA Not Available Start: 03-26-2024 End: 03-26-2024 Bamboo flowsheet Edn Olga DO Work Phone: [facility] Start: 03-26-2024 End: 03-26-2024 Bamboo flowsheet Den Olga DO Work Phone: [facility] Start: 03-13-2024 End: 03-14-2024 Refill Carmela Osieljaneinocencio GAS INSPECTOR Work Phone: [facility] Comment on above: Essential hypertensi on (CMS/HCC) Start: 03-02-2024 End: 03-02-2024 ambulatory Milton N Kenricki Facility:[facility] Start: 02-29-2024 End: 02-29-2024 Refill Carmela Lester GAS INSPECTOR Work Phone: [facility] Comment on above: Coronary artery dise ase involving [place] coronary artery of [place] heart without angina pectoris ([facility]/HCC) Start: 02-07-2024 End: 02-08-2024 Telephone encounter Carmela Popemorenalaura GAS INSPECTOR Work Phone: [facility] Start: 02-01-2024 End: 02-01-2024 Patient encounter procedure Carmela Lester Work Phone: [facility] Work Phone: Start: 02-01-2024 End: 02-01-2024 ambulatory Carmela Soler Osieljaneholz Work Phone: [facility] Work Phone: Start: 01-16-2024 End: 01-16-2024 Patient encounter procedure Carmela Rossz Work Phone: [facility] Work Phone: Start: 01-13-2024 End: 01-13-2024 Patient encounter procedure Carmela Rossz Work Phone: [facility] [place] Work Phone: Start: 01-13-2024 End: 01-13-2024 ambulatory Carmela Karlene Osieljaneholz Work Phone: [facility] Work Phone: Start: 12-26-2023 End: 12-26-2023 ambulatory Carmela Karlene Aichholz Work Phone: [facility] Work Phone: Start: 12-26-2023 End: 12-26-2023 Patient encounter procedure Carmela Aicjaneholz Work Phone: [facility] Work Phone: Start: 12-12-2023 End: 12-12-2023 ambulatory Nikki Gayle MD [facility] Start: 12-01-2023 End: 12-01-2023 ambulatory Carmela Lester Work Phone: [facility] Work Phone: Start: 12-01-2023 End: 12-01-2023 Patient encounter procedure Carmela Lester Work Phone: [facility] Neuro[facility] Work Phone: Start: 11-24-2023 End: 11-25-2023 Refill Carmela Trevon GAS INSPECTOR Work Phone: [facility] Comment on above: Coronary artery dise ase involving [place] coronary artery of [place] heart without angina pectoris (CMS/HCC) Start: 11-22-2023 End: 11-22-2023 Refill Carmela Trevon GAS INSPECTOR Work Phone: [facility] Comment on above: Coronary artery dise ase involving [place] coronary artery of [place] heart without angina pectoris (CMS/HCC); Neuropathy; Essential hypertension (CMS/HCC); Hypothyroidism (acquired) (CMS/HCC); Primary hypertension (CMS/HCC); Trapezius muscle spasm Start: 11-21-2023 End: 11-21-2023 ambulatory Nikki Gayle MD Facility: [place] Start: 10-31-2023 End: 10-31-2023 ambulatory Nikki Gayle MD [facility] Start: 10-27-2023 End: 10-27-2023 ambulatory Carmela Lester Work Phone: [facility] Work Phone: Start: 10-27-2023 End: 10-27-2023 Patient encounter procedure Carmela Lester Work Phone: [facility] Neurosurgery Work Phone: Start: 10-27-2023 End: 10-27-2023 Patient encounter procedure Carmela Aichholz Work Phone: [facility] [place] Work Phone: Start: 10-27-2023 End: 10-27-2023 ambulatory Carmela J Aichholz Work Phone: [facility] Work Phone: Start: 10-06-2023 End: 10-06-2023 ambulatory [facility] Work Phone: Start: 10-06-2023 End: 10-06-2023 Patient encounter procedure [facility] Work Phone: Start: 09-29-2023 End: 09-29-2023 ambulatory ASHUTOSH QUINTANA Not Available Start: 09-07-2023 End: 09-07-2023 ambulatory CARMELA AICHHOLZ Not Available Start: 07-11-2023 End: 07-11-2023 ambulatory CARMELA AICHHOLZ Not Available Start: 06-08-2023 End: 06-08-2023 ambulatory [facility] Start: 05-30-2023 End: 05-30-2023 ambulatory CARMELA AICHHOLZ Not Available Start: 05-10-2023 End: 05-10-2023 ambulatory CARMELA AICHHOLZ Not Available Start: 07-22-2022 End: 07-23-2022 ambulatory [employer] CARMELA AICHHOLZ Facility:[facility] Start: 07-05-2022 End: 07-06-2022 ambulatory [employer] CARMELA AICHHOLZ Facility:[facility] Start: 05-10-2022 End: 05-11-2022 ambulatory [employer] CARMELA AICHHOLZ Facility:[facility] Start: 01-22-2022 End: 01-23-2022 ambulatory [employer] CARMELA AICHHOLZ Facility:[facility] Procedures Date Procedure Procedure Detail Performing Clinician Start: 01-13-2024 MRI of cervical spin e without contrast Carmela Aichholz Work Phone: Start: 10-27-2023 X-ray of cervical spine Carmela Aichholz Work Phone: Plan of Treatment Date Care Activity Detail Author Start: 02-25-2026 Screening for malign ant neoplasm of colon [facility] Start: 05-17-2024 End: 05-17-2024 Patient encounter procedure 05/17/2024 1:15 PM EST Office Visit [facility] [address] [place] [address] Den Espinoza, DO [address] [place] [address] [facility] Start: 04-09-2024 End: 04-09-2024 Patient encounter procedure 04/09/2024 4:00 PM EST Procedure Visit [facility] [address] [address] [place] [id number] Den Espinoza, DO [address] [place] [address] [facility] Start: 03-26-2024 End: 03-26-2024 Patient encounter procedure [facility] [address] Comment on above: Arrived Start: 03-26-2024 End: 03-26-2025 Cobalamin (Vitamin B12) [Mass/volume] in Serum or Plasma Vitamin B12 Lab Routine Idiopathic peripheral neuropathy Expected: 03/26/2024 (Approximate), Expires: 03/26/2025 [facility] Work Phone: Comment on above: Expected: 03/26/2024 (Approximate), Expires: 03/26/2025 Start: 03-26-2024 End: 03-26-2025 EMG 2 Extremities EMG 2 Extremities Neurology Routine Idiopathic peripheral neuropathy Expected: 03/26/2024 (Approximate), Expires: 03/26/2025 [facility] Comment on above: Expected: 03/26/2024 (Approximate), Expires: 03/26/2025 Start: 03-26-2024 End: 03-26-2025 Folate [Mass/volume] in Serum or Plasma Folate Lab Routine Idiopathic peripheral neuropathy Expected: 03/26/2024 (Approximate), Expires: 03/26/2025 [facility] Comment on above: Expected: 03/26/2024 (Approximate), Expires: 03/26/2025 Start: 03-26-2024 End: 03-26-2025 Nuclear Ab [Titer] in Serum by Immunofluorescence [facility] Lab Routine Idiopathic peripheral neuropathy Expected: 03/26/2024 (Approximate), Expires: 03/26/2025 [facility] Comment on above: Expected: 03/26/2024 (Approximate), Expires: 03/26/2025 Start: 03-26-2024 End: 03-26-2025 NVC 9-10 Nerves NVC 9-10 Nerves Neurology Routine Idiopathic peripheral neuropathy Expected: 03/26/2024 (Approximate), Expires: 03/26/2025 [facility] Comment on above: Expected: 03/26/2024 (Approximate), Expires: 03/26/2025 Start: 03-26-2024 End: 03-26-2025 Protein electrophoresis, serum Protein electrophoresis, serum Lab Routine Idiopathic peripheral neuropathy Expected: 03/26/2024 (Approximate), Expires: 03/26/2025 [facility] Comment on above: Expected: 03/26/2024 (Approximate), Expires: 03/26/2025 Start: 03-26-2024 End: 03-26-2025 Rheumatoid factor [Units/volume] in Serum or Plasma Rheumatoid factor Lab Routine Idiopathic peripheral neuropathy Expected: 03/26/2024 (Approximate), Expires: 03/26/2025 [facility] Comment on above: Expected: 03/26/2024 (Approximate), Expires: 03/26/2025 Start: 03-20-2024 End: 03-20-2024 Patient encounter procedure 03/20/2024 1:20 PM EST Office Visit [facility] [address] [place] [id number] Carmela Lester NP [address] [place] [id number] [facility] Start: 11-13-2023 Influenza vaccination Influenz a Vaccine (#1) [facility] Start: 10-27-2023 X-ray of cervical spine XR cer v spine AP/LAT/FLX/EXT [facility] Start: 10-27-2023 XR Cervical spine 4 Views [facility] Start: 10-06-2023 Patient referral [facility] Work Phone: Start: 2001 Screening for malign ant neoplasm of cervix HPV/Cotest [facility] Start: 02-28-1992 Screening for malign ant neoplasm of cervix Pap Smear [facility] Start: 1971 Screening for malign ant neoplasm of colon [facility] Electromyography [facility] MR Cervical spine WO contrast [facility] Patient referral [facility] Work Phone: XR Cervical spine 4 Views [facility] Immunizations Immunization Date Immunization Notes Care Provider Fa [facility] 11-04-2022 influenza, injectabl e, quadrivalent, preservative free Carmela Aichholz GAS INSPECTOR Work Phone: [facility] 11-04-2022 Pneumococcal Conjuga te PCV 20 Carmela Aichholz GAS INSPECTOR Work Phone: [facility] 11-04-2022 influenza virus vacc ine, unspecified formulation Carmela Aichholz GAS INSPECTOR Work Phone: [facility] 01-01-2022 influenza, injectabl e, quadrivalent, preservative free Carmela Aichholz GAS INSPECTOR Work Phone: [facility] 01-03-2021 influenza, injectabl e, quadrivalent, preservative free Carmela Aichholz GAS INSPECTOR Work Phone: [facility] 12-11-2019 influenza, injectabl e, quadrivalent, preservative free Carmela Aichholz GAS INSPECTOR Work Phone: [facility] 11-03-2018 influenza, injectabl e, quadrivalent, preservative free Carmela Aichholz GAS INSPECTOR Work Phone: [facility] 11-03-2018 pneumococcal polysaccharide vaccine, 23 valent Carmela Aichholz GAS INSPECTOR Work Phone: [facility] 12-23-2017 influenza, injectabl e, quadrivalent, preservative free Carmela Aichholz GAS INSPECTOR Work Phone: [facility] Payers Date Payer Category Payer Self-pay 2022 Private Health Insurance [employer] [id number] 2022 Unknown 1971 Unknown [id number] 2.16.840.1.939927.3.579.2. 593 1971 Unknown [id number] 2.16.840.1.376932.3.579.2. 593 1971 Unknown [id number] 2.16.840.1.510734.3.579.2. 593 1971 Unknown [id number] 2.16.840.1.980093.3.579.2. 593 1971 Unknown [id number] 2.16.840.1.970434.3.579.2. 196 1971 Unknown [id number] 2.16.840.1.560956.3.579.2. 196 1971 Unknown [id number] 2.16.840.1.591475.3.579.2. 196 1971 Unknown [id number] 2.16.840.1.248676.3.579.2. 1259 1971 Unknown [id number] 2.16.840.1.343245.3.579.2. 1259 1971 Unknown [id number] 2.16.840.1.946522.3.579.2. 1259 1971 Unknown [id number] 2.16.840.1.456917.3.579.2. 1259 1971 Unknown [id number] 2.16.840.1.059719.3.579.2. 1259 1971 Unknown [id number] 2.16.840.1.399858.3.579.2. 1259 1959 Unknown [id number] Unknown [id number] 2.16.840.1.474481.3.579.2. 531 Unknown [id number] 2.16.840.1.006941.3.579.2. 531 Unknown [id number] 2.16.840.1.397803.3.579.2. 531 Unknown [id number] 2.16.840.1.735781.3.579.2. 531 Social History Date Type Detail Facility Tobacco smoking stat [facility] Unknown if ever smoked [facility] Work Phone: Start: 1970 Sex Assigned At Female F [facility] Tobacco smoking stat [facility] Unknown if ever smoked [facility] Work Phone: Start: 02-02-2024 Sex Patient sex un known (finding) [facility] Start: 02-07-2023 [facility] History of tobacco use [facility] Start: 02-07-2023 End: 05-30-2023 Cigarettes smoked current (pack per day) - Reported 1 [facility] Start: 09-07-2023 End: 03-26-2024 Alcoholic beverage intake Lifetime non-drinker (finding) [facility] Start: 05-30-2023 End: 09-07-2023 Tobacco use panel [facility] Start: 1970 Sex assigned at Not on file [facility] Start: 03-26-2024 [facility] History of tobacco use Current smoker [facility] Start: 03-26-2024 Tobacco use and exposure Smokeless tobacco non-user [facility] Clinical Notes 06-08-2023 to 03-26-2024 Den Espinoza DO - 03/26/2024 4:00 PM ESTTelephone Encounter - Carmela Lester, GAS INSPECTOR - 02/07/2024 8:35 PM ESTTelephone Encounter - Carmela Lester, GAS INSPECTOR - 02/07/2024 8:35 PM EST Note Date & Type Note Facility 03-26-2024 History of Presen t illness Narrative Images from the original note were not included. Chief Complaint Patient presents with Numbness Tingling Subjective Diane [place], 54 y.o., female HPI Paresthesia of skin - EMG @ [facility] as well as our office, MRI brain ordered but pending; referral received from Dr Milton Appiah DO The patient states that she has numbness in her fingers that started a year and a half ago. Her symptoms have stayed about the same and not progressed. She denies any trigger or injury. She has neck pain and tingling. She had steroid injections bilaterally in her neck at pain management in November. The first set of injections did not help. This was her second set of injections and this has helped with her neck mobility and has stopped the shooting pain down her arms. She has had neck pain for years. She has numbness down her right arm. She has weakness in her hands and is dropping things. This is greater on the right. Her right hand is always cold. She has constant numbness bilat feet for the the last 4 years. She states that her feet feel hot at night but are cold to the touch. She is taking gabapentin but it has not helped with her symptoms. She had EMG here and at [facility]. Borderline right CTS. She had the EMG 2020 BLE She is on the neurontin 900mb bid Past Medical History: Diagnosis Date Abnormal ankle brachial index ([facility]SS[facility]) 05/10/2023 Asymptomatic microscopic hematuria 05/10/2023 Back pain, chronic 05/10/2023 Bilateral hand pain 05/10/2023 Bronchitis 02/07/2023 CAD (coronary artery disease) ([facility]) 05/10/2023 Closed traumatic minimally displaced fracture of proximal end of fibula with routine healing 05/10/2023 Fatigue GERD (gastroesophageal reflux disease) 05/10/2023 Gout 05/09/2023 History of irregular menstrual cycles Hyperlipidemia ([facility]) Joint pain Left ankle pain Loud snoring 05/10/2023 Lumbosacral radiculopathy at S1 05/10/2023 Menorrhagia 05/10/2023 Myocardial infarction ([facility]) 05/10/2023 Neuropathy 05/10/2023 Paresthesia of foot Peripheral artery disease ([facility]) 05/10/2023 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[facility]) 05/10/2023 Seasonal allergies 05/10/2023 Tobacco user 05/10/2023 Vitamin B12 deficiency 05/10/2023 Vitamin D deficiency 05/10/2023 Past Surgical History: Procedure Laterality Date ANKLE FRACTURE SURGERY CORONARY ARTERY BYPASS GRAFT Family History Problem Relation Name Age of Onset Hypertension Mother Heart disease Father Hypertension Father Social History Tobacco Use Smoking status: Former Current packs/day: 1.00 Average packs/day: 1 pack/day for 15.0 years (15.0 ttl pk-yrs) Types: Cigarettes Smokeless tobacco: Never Substance Use Topics Alcohol use: Never Allergies: Wound dressing adhesive General: No fever or chills HEENT: No nasal congestion or runny nose Pulmonary: No shortness of breath or cough Cardiovascular: No chest pain or palpitations GI: No nausea or vomiting : No dysuria or hematuria Musculoskeletal: No new aches or pains or muscle weakness Infectious: no recurrent fevers or infections Dermatologic: No rashes or skin lesions Neurologic: No new headaches or dizziness Vitals: 03/26/24 1521 BP: 136/88 Pulse: 78 SpO2: 98% Body mass index is 27.33 kg/m . weight: 159 lb 3.2 oz Neurologic exam: General: Normal body habitus, cooperative, pleasant Mental status: Awake, alert to person, place and time. Recent and remote memory are intact. Attention and concentration are normal. Fund of knowledge is appropriate for level of education. HEENT: NC/AT Cranial nerves: CN II: Visual velarde full to confrontation. No loss of vision CN III, IV, : pupils equal round and reactive to light. Extraocular movements intact. No ptosis present. CN V: Facial sensation is normal. CN VII: Full and symmetric facial movement. CN VIII: Hearing is normal CN IX and X: Palate elevates symmetrically. CN XI: Shoulder shrug is normal bilaterally. CN XII: Tongue is midline without atrophy or fasciculation. Speech: Clear and fluent no aphasia or dysarthria Pronator drift: Negative bilateral upper extremity Coordination: Intact, no signs of dysmetria Good finger to nose and rapid alternating movements Sensory: Sensation is intact to light, temperature touch throughout four extremities. Pinprick and vibratory decreased in a stocking distribution Hands are somewhat red and more arthritis in nature Motor: LUE 5/5 RUE 5/5 LLE 5/5 RLE 5/5 Tone: Physiologic, no tremor, bradykinesia or rigidity DTR: Bilateral Biceps 2/4 Bilateral BR 2/4 Bilateral Patellar 2/4 No spasticity Gait: Normal to casual gait, Some trouble with tandem gait Romberg's Mildly positive Review and summary of old records: Assessment/Plan Diagnoses and all orders for this visit: Idiopathic peripheral neuropathy - Vitamin B12; Future - Folate; Future - Protein electrophoresis, serum; Future - Rheumatoid factor; Future - GINA; Future - NVC 9-10 Nerves; Future - EMG 2 Extremities; Future Numbness and tingling Arthralgia, unspecified joint 54-year-old female who has numbness tingling in a stocking-glove distribution. She has a previous EMG of the bilateral lower extremity that did show a sensory neuropathy that was mild any mild left S1 radiculopathy. That was done in I believe 2020. She has new EMG of bilateral upper extremity in September most recently at [facility] that was not entirely convincing for any entrapment neuropathy or neuropathic process but may have a subclinical right carpal tunnel syndrome. The 1st MRI was done by Dr. Dunlap the 2nd was done by Dr. Naylor. Patient does have an MRI of her cervical spine that shows some significant degenerative disc disease with crowding at multiple levels but no true cord compression. I agree with the neurosurgeon that this is likely not causing her symptoms. MRI of the brain was ordered that did show nonspecific white matter changes. I am not convinced that this is demyelinating in nature. I would expect her to not have symmetric sensory changes in just the hands and the feet if it were from the brain. At this time I suspect she may be having an advancing neuropathy. She may have a small fiber neuropathy. She is on gabapentin 300 mg 3 times daily along tizanidine. Is helping somewhat. At this time I would recommend that she have an EMG of the bilateral lower extremity to assess for advancing neuropathy. If that does not appear to be much worse would recommend a skin biopsy for small fiber neuropathy. Certainly her cervical spine should be monitored over time for any worsening. Plan EMG were reviewed with her I will order an electromyograph evaluation of the lower extremities to assess for nerve damage such as lumbar radiculopathy, lumbar plexopathy, or peripheral neuropathy. MRI of the cervical spine was reviewed with her MRI of the brain was reviewed with her at this time I am not convinced that this is any sort demyelinating process or MS Depending on the results of the bilateral lower extremity EMG we will consider doing a skin biopsy for small fiber neuropathy Lab work to look for causes of neuropathy and rheumatologic issues such as RA or connective tissues dz. We will decide in the next step in treatment once we have her workup. The diagnosis was all discussed with the patient. All questions were answered and they agreed with the treatment plan. Patient will call if there are any new issues or questions. Pt has been fully educated on their diagnosis, treatment options, follow up plan, and return instructions Return to clinic: 3 weeks documented in this encounter [facility] 02-07-2024 Telephone encount er Note Please call and schedule a fu appt for pt [place] [facility] 02-07-2024 Miscellaneous Notes Formattin g of this note might be different from the original. Please call and schedule a fu appt for pt [place] documented in this encounter [facility] 12-01-2023 Evaluation note Diagnosis Onset Date Resolution Arm pain acute November 12:52pm Cervical radiculopathy acute Se ptember 2023 12:52pm Neck pain acute November 12:52pm Cervical radiculopathy acute Oc tober 2023 9:58am Ulnar neuropathy at elbow acute January 15 10:50am [facility] Work Phone: [phone]) 715-345303-27-2024 [facility] Chief Complaint: New patient [...] he is to underg (more content not included)...[facility] Evaluation noteNo assessment information available[facility] Work Phone: Evaluation note* Diagnosis Onset Date Resolution Status Arm pain acute Cervical radiculopathy acute Ulnar neuropathy at elbow ac [place] Arm pain acute Neck pain acute Ulnar neuropathy at elbow ac [place] [facility] Work Phone: Evaluation note* Diagnosis Onset Date Resolution Status Arm pain acute Cervical radiculopathy acute Ulnar neuropathy at elbow ac [place] Arm pain acute Neck pain acute Ulnar neuropathy at elbow ac [place] Arm pain acute Cervical radiculopathy acute Neck pain acute Cervical radiculopathy acute [facility] Work Phone: Evaluation note* Diagnosis Onset Date Resolution Status Arm pain acute Neck pain acute Ulnar neuropathy at elbow ac [place] Arm pain acute Cervical radiculopathy acute Neck pain acute Cervical radiculopathy acute [facility] Work Phone: Evaluation note* Diagnosis Coronary artery disease involving [place] coronary artery of [place] heart without angina pectoris (CMS/HCC) [facility] Diagnosis Colon cancer screening- Primary Special screening for malignant neoplasms, colon Atherosclerosis of [place] coronary artery without angina pectoris, unspecified whether [place] or transplanted heart (CMS/HCC) Essential hypertension (CMS/HCC) Unspecified essential hypertension Hypothyroidism (acquired) (CMS/HCC) Unspecified hypothyroidism Idiopathic gout, unspecified chronicity, unspecified site Bronchitis Bronchitis, not specified as acute or chronic Essential hypertension (CMS/HCC)- Primary Unspecified essential hypertension Coronary artery disease involving [place] coronary artery of [place] heart without angina pectoris (CMS/HCC) Trapezius muscle spasm Tobacco user Tobacco use disorder Essential hypertension (CMS/HCC)- Primary Unspecified essential hypertension Coronary artery disease involving [place] coronary artery of [place] heart without angina pectoris (CMS/HCC) Trapezius muscle spasm Tobacco user Tobacco use disorder Cervical neck pain with evidence of disc disease- Primary Other and unspecified disc disorder of cervical region Trapezius muscle spasm Tobacco user Tobacco use disorder Cervical stenosis of spinal canal- Primary Spinal stenosis in cervical region Cervical radiculopathy Brachial neuritis or radiculitis nos Coronary artery disease involving [place] coronary artery of [place] heart without angina pectoris (CMS/HCC) [facility] Diagnosis Coronary artery disease involving [place] coronary artery of [place] heart without angina pectoris (CMS/HCC) Neuropathy Mononeuritis of unspecified site Essential hypertension (CMS/HCC) Unspecified essential hypertension Hypothyroidism (acquired) (CMS/HCC) Unspecified hypothyroidism Primary hypertension (CMS/HCC) Unspecified essential hypertension Trapezius muscle spasm [facility] Diagnosis Colon cancer screening- Primary Special screening for malignant neoplasms, colon Atherosclerosis of [place] coronary artery without angina pectoris, unspecified whether [place] or transplanted heart (CMS/HCC) Essential hypertension (CMS/HCC) Unspecified essential hypertension Hypothyroidism (acquired) (CMS/HCC) Unspecified hypothyroidism Idiopathic gout, unspecified chronicity, unspecified site Bronchitis Bronchitis, not specified as acute or chronic Essential hypertension (CMS/HCC)- Primary Unspecified essential hypertension Coronary artery disease involving [place] coronary artery of [place] heart without angina pectoris (CMS/HCC) Trapezius muscle spasm Tobacco user Tobacco use disorder Essential hypertension (CMS/HCC)- Primary Unspecified essential hypertension Coronary artery disease involving [place] coronary artery of [place] heart without angina pectoris (CMS/HCC) Trapezius muscle spasm Tobacco user Tobacco use disorder Cervical neck pain with evidence of disc disease- Primary Other and unspecified disc disorder of cervical region Trapezius muscle spasm Tobacco user Tobacco use disorder Cervical stenosis of spinal canal- Primary Spinal stenosis in cervical region Cervical radiculopathy Brachial neuritis or radiculitis nos Essential hypertension (CMS/HCC) Unspecified essential hypertension [facility] Diagnosis Colon cancer screening- Primary Special screening for malignant neoplasms, colon Atherosclerosis of [place] coronary artery without angina pectoris, unspecified whether [place] or transplanted heart (CMS/HCC) Essential hypertension (CMS/HCC) Unspecified essential hypertension Hypothyroidism (acquired) (CMS/HCC) Unspecified hypothyroidism Idiopathic gout, unspecified chronicity, unspecified site Bronchitis Bronchitis, not specified as acute or chronic Essential hypertension (CMS/HCC)- Primary Unspecified essential hypertension Coronary artery disease involving [place] coronary artery of [place] heart without angina pectoris (CMS/HCC) Trapezius muscle spasm Tobacco user Tobacco use disorder Essential hypertension (CMS/HCC)- Primary Unspecified essential hypertension Coronary artery disease involving [place] coronary artery of [place] heart without angina pectoris (CMS/HCC) Trapezius muscle spasm Tobacco user Tobacco use disorder Cervical neck pain with evidence of disc disease- Primary Other and unspecified disc disorder of cervical region Trapezius muscle spasm Tobacco user Tobacco use disorder Cervical stenosis of spinal canal- Primary Spinal stenosis in cervical region Cervical radiculopathy Brachial neuritis or radiculitis nos Idiopathic peripheral neuropathy- Primary Unspecified hereditary and idiopathic peripheral neuropathy Numbness and tingling Disturbance of skin sensation Arthralgia, unspecified joint [facility] instructions[facility] Orders* Referral to Pain Management Location: [facility] Work Phone: Summary Purpose Family History No Family History Records FoundNo Family History Records FoundNo Family History Records FoundNo Family History Records FoundNo Family History Records Found Advance Directives No Advanced Directives Records Found Advance Directive Response Recorded Date/ Time Advance Directives No September 22 4:25pm Advance Directive Response Recorded Date/ Time Advance Directives No September 22 3:25pm Chief Complaint and Reason for Visit Chief [...] cervical pain follow up after pain management refer back from pm worsening neurological deficits Reason for Visit Arm pain Cervical radiculopathy Ulnar neuropathy at elbow Arm pain Neck pain Ulnar neuropathy at elbow Arm pain Cervical radiculopathy Neck pain Cervical radiculopathy Chief Complaint M54.2 follow up cervical pain follow up after pain management refer back from pm worsening neurological deficits M54.12 Reason for Visit Arm pain Neck pain Ulnar neuropathy at elbow Arm pain Cervical radiculopathy Neck pain Cervical radiculopathy Chief Complaint Admit Date follow up after pain management Maikolembe r 2023 12:52pm refer back from pm worsening neurologica l deficits December 26, 2023 9:58am M54.12 January 13, 2024 7 :33pm mri results January 16, 2024 1 0:50am G56.20 M54.12 February 01, 2024 11:33am Reason for Visit Admit Date Arm pain December 01, 2023 12:52pm Cervical radiculopathy November 30, 2 024 12:52pm Neck pain December 01, 2023 12:52pm Cervical radiculopathy December 25 9:58am Ulnar neuropathy at elbow January 16, 2024 10:50am Additional Source Comments INFORMATION SOURCE (unrecogn ized section and content) DATE CREATED AUTHOR 07/25/2022 [facility] DATE CREATED AUTHOR AUTHOR'S ORGANIZ ATION 06/10/2023 [facility] DATE CREATED AUTHOR AUTHOR'S ORGANIZ ATION 12/16/2023 [facility] DATE CREATED AUTHOR AUTHOR'S ORGANIZ ATION 03/06/2024 [facility] DATE CREATED AUTHOR AUTHOR'S ORGANIZ ATION 03/30/2024 [facility] EPIC Care Teams (unrecognized sec tion and content) [...] Team Status: Inactive Member Role Status Dates Carmlea Lester Primary Care Provider Active Sta rt: [...] December 01, 2023 End: December 01, 2023 Team Status: Inactive Member Role Status Dates Carmela Lester Primary Care Provider Active Sta rt: December 26, 2023 End: December 26, 2023 Milton Appiah DO Attending Provider Active S tart: December 26, 2023 End: December 26, 2023 Team Status: Inactive Member Role Status Dates Carmela Lester Primary Care Provider Active Sta rt: January 13, 2024 End: January 13, 2024 Milton Appiah , Attending Provider Active S tart: January 13, 2024 End: January 13, 2024 Team Status: Inactive Member Role Status Dates Carmela Lester Primary Care Provider Active Sta rt: January 16, 2024 End: January 16, 2024 Milton Appiah , Attending Provider Active S tart: January 16, 2024 End: January 16, 2024 Team Status: Inactive Member Role Status Dates Carmela Lester Primary Care Provider Active Sta rt: February 01, 2024 End: February 01, 2024 Milton Appiah , Attending Provider Active S tart: February 01, 2024 End: February 01, 2024 Keno Writer Relationship Specialty Start Date End Date Parviz Stewart MD [address] [place] [id number] PCP - General Family Medicine 05/10/23 Carmela Lester NP [address] [place] [phone] Referring Physician Nurse Practitioner 10/04/22 Carmela Lester NP [address] [place] [phone] Nurse Practitioner Family Medicine 05/10/23 Keno Writer Relationship Specialty Start Date End Date Parviz Stewart MD [address] [place] [id number] PCP - General Family Medicine 05/10/23 Carmela Lester NP [address] [place] [phone] Referring Physician Nurse Practitioner 10/04/22 Carmela Lester NP [address] [place] [phone] Nurse Practitioner Family Medicine 05/10/23 Keno Writer Relationship Specialty Start Date End Date Parviz Stewart MD [address] [place] [phone] PCP - General Family Medicine 05/10/23 Carmela Lester NP [address] [place] [phone] Referring Physician Nurse Practitioner 10/04/22 Carmela Lester NP [address] [place] [phone] Nurse Practitioner Family Medicine 05/10/23 Keno Writer Relationship Specialty Start Date End Date Parviz Stewart MD [address] [place] [phone] PCP - General Family Medicine 05/10/23 Carmela Lester NP [address] [place] [phone] Referring Physician Nurse Practitioner 10/04/22 Carmela Lester NP [address] [place] [phone] Nurse Practitioner Family Medicine 05/10/23 Keno Writer Relationship Specialty Start Date End Date Parviz Stewart MD [address] [place] [phone] PCP - General Family Medicine 05/10/23 Carmela Lester NP [address] [place] [phone] Referring Physician Nurse Practitioner 10/04/22 Carmela Lester NP [address] [place] [phone] Nurse Practitioner Family Medicine 05/10/23 Keno Writer Relationship Specialty Start Date End Date Parviz Stewart MD [address] [place] [phone] PCP - General Family Medicine 05/10/23 Carmela Lester NP [address] [place] [phone] Referring Physician Nurse Practitioner 10/04/22 Carmela Lester NP [address] [place] [phone] Nurse Practitioner Family Medicine 05/10/23 Goals (unrecognized section and content) Goals may be documented in a n alternate sectionGoals may be documented in an alternate sectionGoals may be documented in an alternate sectionGoals may be documented in an alternate sectionGoals may be documented in an alternate sectionGoals may be documented in an alternate sectionGoals may be documented in an alternate section Reason for Visit (unrecogniz ed section and content) Reason Comments Med Change Request Reason Comments Med Refill Reason Comments Numbness Tingling Specialty Diagnoses / Procedures Referred By Contdia t Referred To Contact Neurology Diagnoses Paresthesia of skin Procedures [place] OFFICE/OUTPATIENT NEW LOW MDM Milton Appiah MD Phone: tel: fax: Addy Lynn MD [address] [place] [address] Phone: tel: fax: Referral ID Status Reason Start Date Expiration Date V isits Requested Visits Authorized [id number] Closed Consult and Treat 02/15/2024 08/13/2024 1 1 FOR RECORDS PERTAINING TO PATIENTS WHO ARE [...] BE BASED ON THE PRIMARY CLINICAL RECORDS. [facility]. provides no warranty or guarantee of the accuracy or completeness of information in this document.
[2024-04-01 08:08] LABS: Vitamin B12 177 pg/mL (232-1245)
[2024-04-01 09:11] LABS: Rheumatoid Factor (RF) 12.5 IU/mL (<14.0)
[2024-04-02 16:08] LABS: Albumin 3.6 g/dL (2.9-4.4); Alpha-1-Globulin 0.2 g/dL (0.0-0.4)
[2024-04-03 11:07] LABS: Antinuclear Antibodies, IFA Negative (.)
== END 2024-03-31 11:13 | disposition home or self-care (01) ==
LOC: LAB 11:15
PROVIDERS: PCP Nurse Practitioner; Visit Provider Psychiatry & Neurology Neurology
DX: G60.9 Hereditary and idiopathic neuropathy, unspecified (principal); E53.8 Deficiency of other specified B group vitamins
CPT/HCPCS: 36415; 82607; 82746; 84155; 84165; 86038; 86431

== ENCOUNTER 2024-06-21 13:16 | Outpatient (OUT) | payer OTHER, SELFPAY ==
--- OUTSIDE RECORDS SUMMARY | 2024-06-21 13:39 | XMS_ITS | CCD ---
Author Organization [facility] Care Team Providers Care Metalizing Supervisor Name Role Phone AICHHOLZ, OPERATIONS PROJECT MANAGER CARMELA Admitting Unavailable AICHHOLZ, OPERATIONS PROJECT MANAGER CARMELA Attending Unavailable AICHHOLZ, OPERATIONS PROJECT MANAGER CARMELA Primary Care Unavailable AICHHOLZ, OPERATIONS PROJECT MANAGER CARMELA Consulting Unavailable AICHHOLZ, OPERATIONS PROJECT MANAGER CARMELA Admitting Unavailable AICHHOLZ, OPERATIONS PROJECT MANAGER CARMELA Attending Unavailable AICHHOLZ, OPERATIONS PROJECT MANAGER CARMELA Primary Care Unavailable AICHHOLZ, OPERATIONS PROJECT MANAGER CARMELA Consulting Unavailable AICHHOLZ, OPERATIONS PROJECT MANAGER CARMELA Admitting Unavailable AICHHOLZ, OPERATIONS PROJECT MANAGER CARMELA Attending Unavailable AICHHOLZ, OPERATIONS PROJECT MANAGER CARMELA Primary Care Unavailable AICHHOLZ, OPERATIONS PROJECT MANAGER CARMELA Consulting Unavailable AICHHOLZ, OPERATIONS PROJECT MANAGER CARMELA Admitting Unavailable AICHHOLZ, OPERATIONS PROJECT MANAGER CARMELA Attending Unavailable AICHHOLZ, OPERATIONS PROJECT MANAGER CARMELA Primary Care Unavailable AICHHOLZ, OPERATIONS PROJECT MANAGER CARMELA Consulting Unavailable Aichholz, Carmela J Primary Care Provider [phone] ORLY Comer Attending Provider ORLY Comer Attending Provider Irwin OLSON, Andrius Cantrell Attending Unavailable Irwin OLSON, Andrius Vytautana maria Attending Unavailable Irwin OLSON, Andrius Vyteve Attending Unavailable ORLY Comer Attending Provider DO Milton Appiah Attending Provider [phone] Carmela Lester Primary Care Provider [phone] Milton Appiah DO Attending Provider [phone] Trevon SR. MANAGER CORPORATE COMMUNICATIONS, Carmela Unavailable Parviz Stewart MD Primary Care Provider Trevon SR. MANAGER CORPORATE COMMUNICATIONS, Carmela Unavailable Td, Milton N Attending Unavailable Bialjoycei, Milton N Admitting Unavailable Aichholz, Carmela J Primary Care Unavailable Bialaski, Milton N Attending Unavailable Bialaski, Milton N Admitting Unavailable Aicdonisz, Carmela J Primary Care Unavailable Turovskaya, Loly Admitting Unavailable Aichholz, Carmela J Primary Care Unavailable Turovskaya, Loly Attending Unavailable Bialaski, Milton N Attending Unavailable Bialjoycei, Milton N Admitting Unavailable Aichholz, Carmela J Primary Care Unavailable Den Espinoza DO Unavailable Theo SR. MANAGER CORPORATE COMMUNICATIONS, Jessica Unavailable DEN ESPINOZA Attending Unavailable AICHHOLZ, CARMELA Attending Unavailable AICHHOLZ, CARMELA Attending Unavailable AICHHOLZ, CARMELA Attending Unavailable AICHHOLZ, CARMELA Attending Unavailable ASHUTOSH QUINTANA Attending Unavailable AICHHOLZ, CARMELA Referring Unavailable DEN ESPINOZA Attending Unavailable BIALASKDl, MILTON Referring Unavailable ELTAHAWY, EHAB Attending Unavailable ELTAHAWY, EHAB Attending Unavailable Allergies Allergy Classification Reported Allergen(s) Allergy Type Date of Onset Reaction(s) Facility (1 source) Desonide Drug Allergy 12-02-2012 [facility] Repository (11 sources) Wound Dressing Adhesive Drug Allergy 03-01-2014 [facility] Medications Current Medications Medication [...] 2023 11:00pm atorvastatin 80 mg oral tablet (20 sources) HMG-CoA Reductase Inhibitor Start: 10-06-2023 Atorvastatin Active MG PO October 06, 2023 12:00am Start: 08-10-2023 End: 05-29-2024 take 1 tablet by mouth at bedtime atorvastatin (Lipitor) 80 MG tablet Indications: Coronary artery disease involving [place] coronary artery of [place] heart without angina pectoris (CMS/HCC) Take 1 tablet (80 mg) by mouth at bedtime Take pill in the evening time not morning 90 tablet 1 02/29/2024 05/29/2024 Active ezetimibe 10 mg oral tablet (20 sources) Dietary Cholesterol Absorption Inhibitor Start: 10-06-2023 Ezetimibe Active MG PO October 06, 2023 12:00am Start: 08-10-2023 End: 05-29-2024 take 1 tablet by mouth once daily ezetimibe (Zetia) 10 MG tablet Indications: Coronary artery disease involving [place] coronary artery of [place] heart without angina pectoris (CMS/HCC) Take 1 tablet (10 mg) by mouth Daily 90 tablet 1 02/29/2024 05/29/2024 Active gabapentin 300 mg oral capsule (20 sources) Anti-epileptic Agent Start: 12-26-2023 take 2 [...] mononitrate 120 mg extended release oral tablet (18 sources) Nitrate Vasodilator Start: 10-06-2023 take 1 tablet by mouth every twenty-four hours Isosorbide Mononitrate 120 mg tablet extended release 24 hr Active MG PO October 05, 2023 11:00pm Start: 08-10-2023 End: 02-20-2024 take 1 tablet by mouth once daily in the morning isosorbide mononitrate ER (Imdur) 120 MG 24 hr tablet Indications: Coronary artery disease involving [place] coronary artery of [place] heart without angina pectoris (CMS/HCC) , Essential hypertension (CMS/HCC) Take 1 tablet (120 mg) by mouth Daily Do not crush or chew. Take 120 mg by mouth in the morning. Do not crush or chew. . 90 tablet 1 11/22/2023 Active levothyroxine sodium 0.075 mg oral tablet (18 sources) l-Thyroxine Start: 10-06-2023 Levothyroxine Active MCG [...] 11/22/2023 Active lisinopril 20 mg oral tablet (18 sources) Angiotensin Converting Enzyme Inhibitor Start: 10-06-2023 [...] 60 tablet 1 11/22/2023 12/22/2023 Active Nitroglycerin (14 sources) Nitrate Vasodilator Start: 12-26-2023 Nitroglyce rin Active MG SUBLINGUAL December 26, 2023 12:00am Start: 05-10-2023 End: 12-25-2023 nitroglycerin (Nitrostat) 0. 4 MG SL tablet Indications: Coronary artery disease involving [place] coronary artery of [place] heart without angina pectoris (CMS/HCC) Place 1 tablet (0.4 mg) under the tongue every 5 (five) minutes if needed for chest pain If after 3 doses still chest pain, go to ER/call 911 25 tablet 11/25/2023 Active Nitroglycerin 0.4 mg tablet, sublingual (1 source) Start: 12-26-2023 Nitroglycerin 0.4 mg tablet, sublingual Active MG SUBLINGUAL December 25, 2023 11:00pm tiZANidine 4 mg oral tablet (16 sources) Central alpha-2 Adrenergic Agonist Start: 10-06-2023 [...] Active verapamil hydrochloride 80 mg oral tablet (18 sources) Calcium Channel Sara Start: 10-06-2023 Verapamil [...] Date Documented Date Episodic/Chronic Acute myocardial infarction (11 sources) Myocardial infarction; Translations: [Acute myocardial infarction, unspecified] Onset: 05-10-2023 05-10-2023 Chronic Coronary atherosclerosis and other heart disease (20 sources) Atherosclerotic heart disease of [place] coronary artery without angina pectoris; Translations: [Angina pectoris] Onset: 02-25-2011 02-07-2023 Chronic Disorders of lipid metabolism (16 sources) Pure hyperglyceridemia; Translations: [Hyperlipidemia, unspecified] Onset: 02-25-2011 Chronic Esophageal disorders (11 sources) Gastroesophageal reflux disease; Translations: [Gastro-esophageal reflux disease without esophagitis] Onset: 05-10-2023 05-10-2023 Chronic Essential hypertension (18 sources) Essential (primary) hypertension; Translations: [Hypertensive disorder] Onset: 06-29-2011 Chronic Gout and other crystal arthropathies (20 sources) Gout, unspecified; Translations: [Primary gout] Onset: 01-26-2022 02-07-2023 Chronic Malaise and fatigue (1 source) Other fatigue; Translations: [OTHER FATIGUE] Onset: 07-24-2022 Episodic Menstrual disorders (11 sources) Menorrhagia; Translations: [Excessive and frequent menstruation with regular cycle] Onset: 05-10-2023 05-10-2023 Chronic Nutritional deficiencies (11 sources) Vitamin D deficiency; Translations: [Vitamin D [...] 02-01-2024 10-06-2023 Chronic Other nervous system disorders (12 sources) Neuropathy; Translations: [Polyneuropathy, unspecified] Onset: 05-10-2023 05-10-2023 Chronic Other nervous system disorders (11 sources) Sensory neuropathy; Translations: [Polyneuropathy, unspecified] Onset: 09-26-2023 09-26-2023 Chronic Other nervous system disorders (3 sources) Idiopathic peripheral neuropathy; Translations: [Hereditary and idiopathic neuropathy, unspecified] 03-26-2024 Chronic Other nervous system disorders (2 sources) Numbness and tingling sensation of skin; Translations: [Anesthesia of skin] 03-26-2024 Episodic Other non-traumatic joint disorders (2 sources) Joint pain; Translations: [Pain in unspecified joint] 03-26-2024 Episodic Other nutritional; endocrine; and metabolic disorders (1 source) Overweight; Translations: [OVERWEIGHT] Onset: 07-24-2022 Episodic Other upper respiratory disease (11 sources) Seasonal allergy; Translations: [Other seasonal allergic rhinitis] Onset: 05-10-2023 05-10-2023 Chronic Peripheral and visceral atherosclerosis (11 sources) Peripheral vascular disease, unspecified; Translations: [Peripheral vascular disease, unspecified] Onset: 05-10-2023 05-10-2023 Chronic Residual codes; unclassified (11 sources) Obstructive sleep apnea syndrome; Translations: [Obstructive sleep apnea (adult) (pediatric)] Onset: 09-26-2023 09-26-2023 Chronic Spondylosis; intervertebral disc disorders; other back problems (11 sources) Pain in cervical spine; Translations: [Cervical disc disorder, unspecified, unspecified cervical region] Onset: 07-11-2023 07-11-2023 Chronic Thyroid disorders (17 sources) Hypothyroidism, unspecified; Translations: [Acquired hypothyroidism] Onset: 01-26-2022 Chronic Past or Other Problems Problem Classification Problem Date Documented Da te Episodic/Chronic Chronic obstructive pulmonary disease and bronchiectasis (11 sources) Bronchitis; Translations: [Bronchitis, not specified as acute or chronic] Onset: 02-07-2023 Resolved: 05-10-2023 05-10-2023 Episodic Coma; stupor; and brain damage (11 sources) Daytime somnolence; Translations: [Somnolence] Onset: 09-26-2023 09-26-2023 Episodic Fracture of lower limb (11 sources) Closed fracture of head of fibula; Translations: [Other fracture of upper and lower end of unspecified fibula, subsequent encounter for closed fracture with routine healing] Onset: 05-10-2023 Resolved: 05-10-2023 05-10-2023 Episodic Genitourinary symptoms and ill-defined conditions (11 sources) Asymptomatic microscopic hematuria; Translations: [Asymptomatic microscopic hematuria] Onset: 05-10-2023 05-10-2023 Episodic Nutritional deficiencies (11 sources) Cobalamin deficiency; Translations: [Deficiency of other specified B group vitamins] Onset: 05-10-2023 05-10-2023 Episodic Other connective tissue disease (11 sources) Pain of bilateral hands; Translations: [Pain in right hand] Onset: 05-10-2023 05-10-2023 Episodic Other connective tissue disease (20 sources) Muscle spasm of cervical muscle of neck; Translations: [Other muscle spasm] Onset: 05-10-2023 Resolved: 05-10-2023 05-10-2023 Episodic Other lower respiratory disease (11 sources) Snoring; Translations: [Snoring] Onset: 05-10-2023 05-10-2023 Episodic Other nervous system disorders (11 sources) Paresthesia; Translations: [Paresthesia of skin] Onset: 09-26-2023 09-26-2023 Episodic Residual codes; unclassified (11 sources) Finding of systemic arterial pressure; Translations: [Other general symptoms and signs] Onset: 05-10-2023 05-10-2023 Episodic Residual codes; unclassified (11 sources) Tobacco user; Translations: [Tobacco use] Onset: 05-10-2023 05-10-2023 Episodic Spondylosis; intervertebral disc disorders; other back problems (20 sources) Cervical radiculopathy; Translations: [Radiculopathy, cervical region] Onset: 05-10-2023 10-06-2023 Episodic Results Test Name Value Interpretation Reference Range Facility Office Visiton 06-04-2024 Follow-up visit [id number] Diane Canas 1970 F Date Provider Department Center 06/[facility] Family History Problem Relation Age of Onset Coronary artery disease Father Family Status - Relation Status Age at Father Level of Service:19479 MD OFFICE/OUTPATIENT ESTABLISHED LOW MDM 20 MIN Normal [facility] EMG 2 Extremitieson 04-09-19 EMG/NCS BLE Moderate left chronic S1 radic [facility] NVC 9-10 Nerveson 04-09-2024 EMG/NCS BLE Moderate left chronic S1 radic [facility] 9-10 NervesOrdered By: Yari Espinoza on 04-09-2024 [facility] Work Phone: ALL FOLIC ACIDon 03-31-2024 FOLATE 4.3 ng/mL Low 8.60 - 58.90 ng/mL [facility] Interpretation and review of laboratory results Abnormal [facility] MR head/brain wo/w conon MR head/brain wo/[place] [address] MRI Report Signed Patient: Diane Canas MR#: [id number] 98 : 1970 Acct:[id number] Age/Sex: 54 / F ADM Date: 03/02/24 Loc: MR Room: Type: REG CLI Attending Dr: Milton Appiah DO Copies to: [...] Gini Solis M.D.03/02/2024 11:22 PM Dictation Location: [place] [address] Transcribed By: [facility] 03/02/242321 Dictated By: Gini Solis MD 03/02/24 2312 Signed By: 03/02/24 2322 Normal [facility] MR cervical spine wo conon 1 03-14-2023 MR cervical spine wo con [facility] [place] [address] MRI Report Signed Patient: Diane Canas MR#: [id number] 98 : 1970 Acct:[id number] Age/Sex: 53 / F ADM Date: 01/13/24 Loc: MR Room: Type: REG CLI Attending Dr: Milton Appiah DO Copies to: [...] Dank Camara M.D.01/13/2024 9:02 PM Dictation Location: [place] [address] Transcribed By: [facility] 01/13/242101 Dictated By: Dank Camara DO 01/13/242053 Signed By: 01/13/242101 Normal [facility] XR cerv spine AP/LAT/FLX/EXT on 10-27-2023 XR cerv spine AP/LAT/FLX/EXT [facility] [place] [address] XRay Report Signed Patient: Diane Canas MR#: [id number] 98 : 1970 Acct:[id number] Age/Sex: 53 / F ADM Date: 10/27/23 Loc: XD Room: Type: [facility] Attending Dr: Loly Comer APRN Copies [...] Dank Camara M.D.10/27/2023 4:13 PM Dictation Location: [place] [address] Transcribed By: [facility] 10/27/23 1613 Dictated By: Dank Camara DO 10/27/23 1611 Signed By: 10/27/23 1613 Normal [facility] Office Visiton 06-08-2023 Follow-up visit [id number] Diane Canas 1970 F Date Provider Department Center 06/08/2023 271-[facility] Family History Problem Relation Age of Onset Coronary artery disease Father Family Status - Relation Status Age at Father Level of Service:56097 MD OFFICE/OUTPATIENT NEW LOW MDM 30 MINUTES Normal [facility] CBC AUTO DIFFon 07-22-2022 BASO # 0.1 103/ul Normal 0.0-0.1 [facility] Comment on above: Performed By: #### C BC #### [facility] [address] [place] [address] [address] Candy Cortez Basophils/100 WBC (Bld) 0.6 % Normal 0.2-2.0 [facility] Comment on above: Performed By: #### C BC #### [facility] [address] [address] [address] Candy Cortez EO # 0.3 103/ul Normal 0.0-0.7 [facility] Comment on above: Performed By: #### C BC #### [facility] [address] [address] [address] Candy Cortez Eosinophils/100 WBC (Bld) 2.8 % Normal 0.9-7.0 [facility] Comment on above: Performed By: #### C BC #### [facility] [address] [place] [address] Dr. Candy Cortez Erythrocyte distribution width (RBC) [Ratio] 11.9 % Normal 11.0-15.0 [facility] Comment on above: Performed By: #### C BC #### [facility] [address] [place] [address] Dr. Candy Cortez Hematocrit (Bld) [Volume fraction] 39.5 % Normal 36.0-48.0 [facility] Comment on above: Performed By: #### C BC #### [facility] [address] [place] [address] Dr. Candy Cortez Hemoglobin (Bld) [Mass/Vol] 12.8 g/dL Normal 12.0-16.0 [facility] Comment on above: Performed By: #### C BC #### [facility] [address] [place] [address] [address] Candy Cortez IG # 0.04 10e3/ul Critically high 0.00-0.03 [facility] Comment on above: Performed By: #### C BC #### [facility] [address] [place] [address] [address] Candy Cortez IG % 0.4 % Normal 0.0-0.5 [facility] Comment on above: Performed By: #### C BC #### [facility] [address] [place] [address] Dr. Candy Cortez LYMPH # 3.2 103/ul Normal 1.2-3.8 [facility] Comment on above: Performed By: #### C BC #### [facility] [address] [place] [address] Dr. Candy Cortez Lymphocytes/100 WBC (Bld) 33.9 % Normal 20.5-60.0 [facility] Comment on above: Performed By: #### C BC #### [facility] [address] [place] [address] Dr. Candy Cortez MANUAL DIFF REQ NO Normal [facility] Comment on above: Performed By: #### C BC #### [facility] [address] [place] [address] Dr. Candy Cortez MCH (RBC) [Entitic mass] 31.3 pg Normal 26.7-34.0 [facility] Comment on above: Performed By: #### C BC #### [facility] [address] [place] [address] Dr. Candy Cortez MCHC (RBC) [Mass/Vol] 32.4 g/dL Normal 29.9-35.2 [facility] Comment on above: Performed By: #### C BC #### [facility] [address] [place] [address] Dr. Candy Cortez MCV (RBC) [Entitic vol] 96.6 fL Normal 81.0-99.0 [facility] Comment on above: Performed By: #### C BC #### [facility] [address] [place] [address] Dr. Candy Cortez MONO # 0.8 103/ul Normal 0.3-0.8 [facility] Comment on above: Performed By: #### C BC #### [facility] [address] [place] [address] Dr. Candy Cortez Monocytes/100 WBC (Bld) 8.3 % Normal 1.7-12.0 [facility] Comment on above: Performed By: #### C BC #### [facility] [address] [place] [address] Dr. Candy Cortez NEUT # 5.1 103/ul Normal 1.4-6.5 [facility] Comment on above: Performed By: #### C BC #### [facility] [address] [place] [address] [address] Candy Cortez Neutrophils/100 WBC (Bld) 54.0 % Normal 43.0-75.0 [facility] Comment on above: Performed By: #### C BC #### [facility] [address] [place] [address] [address] Candy Cortez Platelet mean volume (Bld) [Entitic vol] 11.6 fL Normal 9.5-13.5 [facility] Comment on above: Performed By: #### C BC #### [facility] [address] [place] [address] Dr. Candy Cortez PLT 258 103/ul Normal 150-450 [facility] Comment on above: Performed By: #### C BC #### [facility] [address] [place] [address] Dr. Candy Cortez RBC 4.09 106/ul Critically low 4.20-5.40 [facility] Comment on above: Performed By: #### C BC #### [facility] [address] [place] [address] Dr. Candy Cortez WBC 9.4 103/ul Normal 4.0-11.0 [facility] Comment on above: Performed By: #### C BC #### [facility] [address] [place] [address] Dr. Candy Cortez FREE T4on 07-22-2022 Free T4 [Mass/Vol] 0.91 ng/dL Normal 0.76-1.46 [facility] Comment on above: Performed By: #### T SH, URIC, CMP, LIPID #### [facility] [address] [place] [address] Dr. Candy Cortez IRONon 07-22-2022 Iron [Mass/Vol] 106.0 ug/dL Normal 50.0-170.0 [facility] Comment on above: Performed By: #### T SH, URIC, CMP, LIPID #### [facility] [address] [place] [address] Dr. Candy Cortez PROF 14(COMP METB)on 023 Albumin [Mass/Vol] 3.7 g/dL Normal 3.4-5.0 [facility] Comment on above: Performed By: #### T SH, CMP #### [facility] [address] [place] [address] Dr. Candy Cortez Albumin/Globulin [Mass ratio] 1.0 {ratio} Normal [facility] Comment on above: Performed By: #### T SH, CMP #### [facility] [address] [place] [address] Dr. Candy Cortez ALP [Catalytic activity/Vol] 84 U/L Normal 46-116 [facility] Comment on above: Performed By: #### T SH, CMP #### [facility] [address] [place] [address] Dr. Candy Cortez ALT [Catalytic activity/Vol] 36 U/L Normal 14-59 [facility] Comment on above: Performed By: #### T SH, CMP #### [facility] [address] [place] [address] Dr. Candy Cortez Anion gap [Moles/Vol] 11.6 mmol/L Normal [facility] Comment on above: Performed By: #### T SH, CMP #### [facility] [address] [place] [address] Dr. Candy Cortez AST [Catalytic activity/Vol] 30 U/L Normal 15-37 [facility] Comment on above: Performed By: #### T SH, CMP #### [facility] [address] [place] [address] Dr. Candy Cortez Bilirubin [Mass/Vol] 0.4 mg/dL Normal 0.2-1.0 [facility] Comment on above: Performed By: #### T SH, CMP #### [facility] [address] [place] [address] Dr. Candy Cortez Calcium [Mass/Vol] 9.4 mg/dL Normal 8.5-10.1 [facility] Comment on above: Performed By: #### T SH, CMP #### [facility] [address] [place] [address] Dr. Candy Cortez Chloride [Moles/Vol] 105 mmol/L Normal 98-107 [facility] Comment on above: Performed By: #### T SH, CMP #### [facility] [address] [place] [address] Dr. Candy Cortez CO2 [Moles/Vol] 29.2 mmol/L Normal 21.0-32.0 [facility] Comment on above: Performed By: #### T SH, CMP #### [facility] [address] [place] [address] Dr. Candy Cortez Creatinine [Mass/Vol] 0.78 mg/dL Normal 0.55-1.02 [facility] Comment on above: Performed By: #### T SH, CMP #### [facility] [address] [place] [address] Dr. Candy Cortez EGFR-AF CUBAN >60 Normal >=60 [facility] Comment on above: Performed By: #### T SH, CMP #### [facility] [address] [place] [address] Dr. Candy Cortez EGFR-NON AF CUBAN >60 Normal >=60 [facility] Comment on above: Performed By: #### T SH, CMP #### [facility] [address] [place] [address] Dr. Candy Cortez Globulin (S) [Mass/Vol] 3.8 g/dL Normal [facility] Comment on above: Performed By: #### T SH, CMP #### [facility] [address] [place] [address] Dr. Candy Cortez Glucose [Mass/Vol] 95 mg/dL Normal 74-106 [facility] Comment on above: Performed By: #### T SH, CMP #### [facility] [address] [place] [address] Dr. Candy Cortez Potassium [Moles/Vol] 4.8 mmol/L Normal 3.5-5.1 [facility] Comment on above: Performed By: #### T SH, CMP #### [facility] [address] [place] [address] Dr. Candy Cortez Protein [Mass/Vol] 7.5 g/dL Normal 6.4-8.2 [facility] Comment on above: Performed By: #### T SH, CMP #### [facility] [address] [place] [address] Dr. Candy Cortez Sodium [Moles/Vol] 141 mmol/L Normal 136-145 [facility] Comment on above: Performed By: #### T SH, CMP #### [facility] [address] [place] [address] Dr. Candy Cortez Urea nitrogen [Mass/Vol] 13.0 mg/dL Normal 7.0-18.0 [facility] Comment on above: Performed By: #### T SH, CMP #### [facility] [address] [place] [address] Dr. Candy Cortez Urea nitrogen/Creatinine [Mass ratio] 16.7 mg/mg Normal [facility] Comment on above: Performed By: #### T SH, CMP #### [facility] [address] [place] [address] Dr. Candy Cortez TSHon 07-22-2022 TSH 0.818 uIU/mL Normal 0.358-3.740 [facility] Comment on above: Performed By: #### T SH, CMP #### [facility] [address] [place] [address] Dr. Candy Cortez UA RANDOM W/MICROSCOPICon BACTERIA NONE SEEN Normal NONE SEEN [facility] Comment on above: Performed By: #### U AMIC #### [facility] [address] [place] [address] Dr. Candy Cortez Bilirubin Ql (U) Negative Normal NEGATIVE [facility] Comment on above: Performed By: #### U AMIC #### [facility] [address] [place] [address] Dr. Candy Cortez CAST NONE SEEN Normal NONE SEEN [facility] Comment on above: Performed By: #### U AMIC #### [facility] [address] [place] [address] Dr. Candy Cortez Clarity (U) CLEAR Normal CLEAR [facility] Comment on above: Performed By: #### U AMIC #### [facility] [address] [address] [address] Candy Cortez Color (U) LT. YELLOW Normal YELLOW [facility] Comment on above: Performed By: #### U AMIC #### [facility] [address] [address] [address] Candy Cortez Crystals LM Nom (Urine sed) NONE SEEN Normal NONE SEEN [facility] Comment on above: Performed By: #### U AMIC #### [facility] [address] [address] [address] Candy Cortez Epithelial cells LM Ql (Urine sed) RARE Normal NONE SEEN /RARE [facility] Comment on above: Performed By: #### U AMIC #### [facility] [address] [place] [address] Dr. Candy Cortez Glucose Ql (U) Negative Normal NEGATIVE [facility] Comment on above: Performed By: #### U AMIC #### [facility] [address] [address] [address] Candy Cortez Hemoglobin Ql (U) Negative Normal NEGATIVE [facility] Comment on above: Performed By: #### U AMIC #### [facility] [address] [address] [address] Candy Cortez Ketones Ql (U) Negative Normal NEGATIVE [facility] Comment on above: Performed By: #### U AMIC #### [facility] [address] [address] [address] Candy Cortez LEUKOCYTES Negative Normal NEGATIVE [facility] Comment on above: Performed By: #### U AMIC #### [facility] [address] [address] [address] Candy Cortez MUCOUS NONE SEEN Normal NONE SEEN [facility] Comment on above: Performed By: #### U AMIC #### [facility] [address] [address] [address] Candy Cortez Nitrite Ql (U) Negative Normal NEGATIVE [facility] Comment on above: Performed By: #### U AMIC #### [facility] [address] [address] [address] Candy Cortez pH (U) 7.0 [pH] Normal 5-9 [facility] Comment on above: Performed By: #### U AMIC #### [facility] [address] [place] [address] Dr. Candy Cortez RBC 0-2 Normal 0-2 [facility] Comment on above: Performed By: #### U AMIC #### [facility] [address] [address] [address] Candy Cortez SPEC GRAVITY <=1.005 Abnormal 1.005-<=1.025 [facility] Comment on above: Performed By: #### U AMIC #### [facility] [address] [place] [address] Dr. Candy Cortez UA PROTEIN Negative Normal NEGATIVE/ TRACE [facility] Comment on above: Performed By: #### U AMIC #### [facility] [address] [place] [address] Dr. Candy Cortez Urobilinogen Qn (U) 0.2 {Nicko'U}/dL Normal 0.2 - 1. 0 [facility] Comment on above: Performed By: #### U AMIC #### [facility] [address] [place] [address] Dr. Candy Cortez WBC 0-2 Abnormal NONE SEEN [facility] Comment on above: Performed By: #### U AMIC #### [facility] [address] [place] [address] Dr. Candy Cortez VITAMIN B12on 07-22-2022 Cobalamin (Vitamin B12) [Mass/Vol] 201.0 pg/mL Normal 193.0-986.0 [facility] Comment on above: Performed By: #### T SH, URIC, CMP, LIPID #### [facility] [address] [place] [address] Dr. Candy Cortez VITAMIN D 25 OHon 07-22-2022 VIT D 25-OH 14.6 ng/mL Normal [facility] Comment on above: Performed By: #### T SH, URIC, CMP, LIPID #### [facility] [address] [address] [address] Candy Cortez VIT D RANGES SEE BELOW Normal [facility] Comment on above: Result Comment: <20 ng/mL Vit D deficient 20 - <30 ng/mL Vit D insufficient 30 - 100 ng/mL Vit D sufficient >100 ng/mL Potential Toxicity Performed By: #### T SH, URIC, CMP, LIPID #### [facility] [address] [address] [address] Candy Cortez LIPID PROFILEon 07-05-2022 CHOL-HDL RATIO NORM SEE BELOW Normal [facility] Comment on above: Result Comment: 3.3 - 4.4 LOW RISK 4.4 - 7.1 AVERAGE RISK 7.1 - 11.0 MODERATE RISK >11.0 HIGH RISK Performed By: #### T SH, URIC, CMP, LIPID #### [facility] [address] [address] [address] Candy Cortez Cholesterol [Mass/Vol] 162 mg/dL Normal <=200 [facility] Comment on above: Performed By: #### T SH, URIC, CMP, LIPID #### [facility] [address] [place] [address] Dr. aCndy Cortez Cholesterol in HDL [Mass/Vol] 74 mg/dL Critically high 40-60 [facility] Comment on above: Performed By: #### T SH, URIC, CMP, LIPID #### [facility] [address] [address] [address] Candy Cortez Cholesterol in LDL [Mass/Vol] 54.8 mg/dL Normal [facility] Comment on above: Performed By: #### T SH, URIC, CMP, LIPID #### [facility] [address] [address] [address] Candy Cortez Cholesterol.total/Ch olesterol in HDL [Mass ratio] 2.2 {ratio} Normal [facility] Comment on above: Performed By: #### T SH, URIC, CMP, LIPID #### [facility] [address] [place] [address] Dr. Candy Cortez HDL NORMAL > or = 60 mg/dl - LOW CARDIOVASCULAR RISK <40 mg/dl - HIGH CARDIOVASCULAR RISK Normal [facility] Comment on above: Performed By: #### T SH, URIC, CMP, LIPID #### [facility] [address] [address] [address] Candy Cortez LDL CALC NORMAL SEE BELOW Normal [facility] Comment on above: Result Comment: <100 mg/dl OPTIMAL 100 - 129 mg/dl NEAR OR ABOVE OPTIMAL 130 - 159 mg/dl BORDERLINE HIGH 160 - 189 mg/dl HIGH >190 mg/dl VERY HIGH Performed By: #### T SH, URIC, CMP, LIPID #### [facility] [address] [address] [address] Candy Cortez Triglyceride [Mass/Vol] 166 mg/dL Critically high <=150 [facility] Comment on above: Performed By: #### T SH, URIC, CMP, LIPID #### [facility] [address] [address] [address] Candy Cortez VLDL CALC 33.2 mg/dL Normal [facility] Comment on above: Performed By: #### T SH, URIC, CMP, LIPID #### [facility] [address] [address] [address] Candy Flower 07-05-2022 AST [Catalytic activity/Vol] 32 U/L Normal 15-37 [facility] Comment on above: Performed By: #### T SH, URIC, CMP, LIPID #### [facility] [address] [address] [address] Candy Colby 07-05-2022 ALT [Catalytic activity/Vol] 52 U/L Normal 14-59 [facility] Comment on above: Performed By: #### T SH, URIC, CMP, LIPID #### [facility] [address] [place] [address] Dr. Candy Cortez LIPID PROFILEon 05-10-2022 CHOL-HDL RATIO NORM SEE BELOW Normal [facility] Comment on above: Result Comment: 3.3 - 4.4 LOW RISK 4.4 - 7.1 AVERAGE RISK 7.1 - 11.0 MODERATE RISK >11.0 HIGH RISK Performed By: #### T SH, URIC, CMP, LIPID #### [facility] [address] [address] [address] Candy Cortez Cholesterol [Mass/Vol] 178 mg/dL Normal <=200 [facility] Comment on above: Performed By: #### T SH, URIC, CMP, LIPID #### [facility] [address] [address] [address] Candy Cortez Cholesterol in HDL [Mass/Vol] 80 mg/dL Critically high 40-60 [facility] Comment on above: Performed By: #### T SH, URIC, CMP, LIPID #### [facility] [address] [address] [address] Candy Cortez Cholesterol in LDL [Mass/Vol] 43.4 mg/dL Normal [facility] Comment on above: Performed By: #### T SH, URIC, CMP, LIPID #### [facility] [address] [address] [address] Candy Cortez Cholesterol.total/Ch olesterol in HDL [Mass ratio] 2.2 {ratio} Normal [facility] Comment on above: Performed By: #### T SH, URIC, CMP, LIPID #### [facility] [address] [address] [address] Candy Cortez HDL NORMAL > or = 60 mg/dl - LOW CARDIOVASCULAR RISK <40 mg/dl - HIGH CARDIOVASCULAR RISK Normal [facility] Comment on above: Performed By: #### T SH, URIC, CMP, LIPID #### [facility] [address] [address] [address] Candy Cortez LDL CALC NORMAL SEE BELOW Normal [facility] Comment on above: Result Comment: <100 mg/dl OPTIMAL 100 - 129 mg/dl NEAR OR ABOVE OPTIMAL 130 - 159 mg/dl BORDERLINE HIGH 160 - 189 mg/dl HIGH >190 mg/dl VERY HIGH Performed By: #### T SH, URIC, CMP, LIPID #### [facility] [address] [address] [address] Candy Cortez Triglyceride [Mass/Vol] 273 mg/dL Critically high <=150 [facility] Comment on above: Performed By: #### T SH, URIC, CMP, LIPID #### [facility] [address] [address] [address] Candy Cortez VLDL CALC 54.6 mg/dL Normal [facility] Comment on above: Performed By: #### T SH, URIC, CMP, LIPID #### [facility] [id number] Candy Cortez CBC AUTO DIFFon 01-22-2022 BASO # 0.1 103/ul Normal 0.0-0.1 [facility] Comment on above: Performed By: #### C BC #### [facility] [address] [place] [address] Dr. Candy Cortez Basophils/100 WBC (Bld) 1.2 % Normal 0.2-2.0 [facility] Comment on above: Performed By: #### C BC #### [facility] [address] [place] [address] Dr. Candy Cortez EO # 0.2 103/ul Normal 0.0-0.7 [facility] Comment on above: Performed By: #### C BC #### [facility] [address] [place] [address] Dr. Candy Cortez Eosinophils/100 WBC (Bld) 2.8 % Normal 0.9-7.0 [facility] Comment on above: Performed By: #### C BC #### [facility] [address] [place] [address] Dr. Candy Cortez Erythrocyte distribution width (RBC) [Ratio] 12.2 % Normal 11.0-15.0 [facility] Comment on above: Performed By: #### C BC #### [facility] [address] [place] [address] Dr. Candy Cortez Hematocrit (Bld) [Volume fraction] 41.0 % Normal 36.0-48.0 [facility] Comment on above: Performed By: #### C BC #### [facility] [address] [place] [address] Dr. Candy Cortez Hemoglobin (Bld) [Mass/Vol] 13.6 g/dL Normal 12.0-16.0 [facility] Comment on above: Performed By: #### C BC #### [facility] [address] [place] [address] Dr. Candy Cortez IG # 0.00 10e3/ul Normal 0.00-0.03 [facility] Comment on above: Performed By: #### C BC #### [facility] [address] [place] [address] Dr. Candy Cortez IG % 0.0 % Normal 0.0-0.5 [facility] Comment on above: Performed By: #### C BC #### [facility] [address] [place] [address] Dr. Candy Cortez LYMPH # 2.7 103/ul Normal 1.2-3.8 [facility] Comment on above: Performed By: #### C BC #### [facility] [address] [place] [address] Dr. Candy Cortez Lymphocytes/100 WBC (Bld) 47.5 % Normal 20.5-60.0 [facility] Comment on above: Performed By: #### C BC #### [facility] [address] [place] [address] Dr. Candy Cortez MANUAL DIFF REQ NO Normal [facility] Comment on above: Performed By: #### C BC #### [facility] [address] [place] [address] Dr. Candy Cortez MCH (RBC) [Entitic mass] 32.5 pg Normal 26.7-34.0 [facility] Comment on above: Performed By: #### C BC #### [facility] [address] [place] [address] Dr. Candy Cortez MCHC (RBC) [Mass/Vol] 33.2 g/dL Normal 29.9-35.2 [facility] Comment on above: Performed By: #### C BC #### [facility] [address] [place] [address] Dr. Canyd Cortez MCV (RBC) [Entitic vol] 97.9 fL Normal 81.0-99.0 [facility] Comment on above: Performed By: #### C BC #### [facility] [address] [address] [address] Candy Cortez MONO # 0.5 103/ul Normal 0.3-0.8 [facility] Comment on above: Performed By: #### C BC #### [facility] [address] [address] [address] Candy Cortez Monocytes/100 WBC (Bld) 8.4 % Normal 1.7-12.0 [facility] Comment on above: Performed By: #### C BC #### [facility] [address] [place] [address] Dr. Candy Cortez NEUT # 2.3 103/ul Normal 1.4-6.5 [facility] Comment on above: Performed By: #### C BC #### [facility] [address] [place] [address] Dr. Candy Cortez Neutrophils/100 WBC (Bld) 40.1 % Critically low 43.0-75.0 [facility] Comment on above: Performed By: #### C BC #### [facility] [address] [place] [address] Dr. Candy Cortez Platelet mean volume (Bld) [Entitic vol] 11.5 fL Normal 9.5-13.5 [facility] Comment on above: Performed By: #### C BC #### [facility] [address] [place] [address] Dr. Candy Cortez PLT 305 103/ul Normal 150-450 [facility] Comment on above: Performed By: #### C BC #### [facility] [address] [place] [address] Dr. Candy Cortez RBC 4.19 106/ul Critically low 4.20-5.40 [facility] Comment on above: Performed By: #### C BC #### [facility] [address] [place] [address] Dr. Candy Cortez WBC 5.7 103/ul Normal 4.0-11.0 [facility] Comment on above: Performed By: #### C BC #### [facility] [address] [place] [address] Dr. Candy Cortez FREE T4on 01-22-2022 Free T4 [Mass/Vol] 0.78 ng/dL Normal 0.76-1.46 [facility] Comment on above: Performed By: #### T SH, URIC, CMP, LIPID #### [facility] [address] [address] [address] Candy Cortez LIPID PROFILEon 01-22-2022 CHOL-HDL RATIO NORM SEE BELOW Normal [facility] Comment on above: Result Comment: 3.3 - 4.4 LOW RISK 4.4 - 7.1 AVERAGE RISK 7.1 - 11.0 MODERATE RISK >11.0 HIGH RISK Performed By: #### T SH, URIC, CMP, LIPID #### [facility] [address] [place] [address] Dr. Candy Cortez Cholesterol [Mass/Vol] 167 mg/dL Normal <=200 [facility] Comment on above: Performed By: #### T SH, URIC, CMP, LIPID #### [facility] [address] [place] [address] Dr. Candy Cortez Cholesterol in HDL [Mass/Vol] 64 mg/dL Critically high 40-60 [facility] Comment on above: Performed By: #### T SH, URIC, CMP, LIPID #### [facility] [address] [place] [address] Dr. Candy Cortez Cholesterol in LDL [Mass/Vol] 43.6 mg/dL Normal [facility] Comment on above: Performed By: #### T SH, URIC, CMP, LIPID #### [facility] [address] [place] [address] Dr. Candy Cortez Cholesterol.total/Ch olesterol in HDL [Mass ratio] 2.6 {ratio} Normal [facility] Comment on above: Performed By: #### T SH, URIC, CMP, LIPID #### [facility] [address] [place] [address] Dr. Candy Cortez HDL NORMAL > or = 60 mg/dl - LOW CARDIOVASCULAR RISK <40 mg/dl - HIGH CARDIOVASCULAR RISK Normal [facility] Comment on above: Performed By: #### T SH, URIC, CMP, LIPID #### [facility] [address] [address] [address] Candy Cortez LDL CALC NORMAL SEE BELOW Normal [facility] Comment on above: Result Comment: <100 mg/dl OPTIMAL 100 - 129 mg/dl NEAR OR ABOVE OPTIMAL 130 - 159 mg/dl BORDERLINE HIGH 160 - 189 mg/dl HIGH >190 mg/dl VERY HIGH Performed By: #### T SH, URIC, CMP, LIPID #### [facility] [address] [address] [address] Candy Cortez Triglyceride [Mass/Vol] 297 mg/dL Critically high <=150 [facility] Comment on above: Performed By: #### T SH, URIC, CMP, LIPID #### [facility] [address] [address] [address] Candy Cortez VLDL CALC 59.4 mg/dL Normal [facility] Comment on above: Performed By: #### T SH, URIC, CMP, LIPID #### [facility] [address] [address] [address] Candy Cortez PROF 14(COMP METB)on 022 Albumin [Mass/Vol] 3.6 g/dL Normal 3.4-5.0 [facility] Comment on above: Performed By: #### T SH, URIC, CMP, LIPID #### [facility] [address] [address] [address] Candy Cortez Albumin/Globulin [Mass ratio] 1.0 {ratio} Normal [facility] Comment on above: Performed By: #### T SH, URIC, CMP, LIPID #### [facility] [address] [place] [address] Dr. Candy Cortez ALP [Catalytic activity/Vol] 79 U/L Normal 46-116 [facility] Comment on above: Performed By: #### T SH, URIC, CMP, LIPID #### [facility] [address] [address] [address] Candy Cortez ALT [Catalytic activity/Vol] 23 U/L Normal 14-59 [facility] Comment on above: Performed By: #### T SH, URIC, CMP, LIPID #### [facility] [address] [address] [address] Candy Cortez Anion gap [Moles/Vol] 9.7 mmol/L Normal [facility] Comment on above: Performed By: #### T SH, URIC, CMP, LIPID #### [facility] [address] [address] [address] Candy Cortez AST [Catalytic activity/Vol] 20 U/L Normal 15-37 [facility] Comment on above: Performed By: #### T SH, URIC, CMP, LIPID #### [facility] [address] [address] [address] Candy Cortez Bilirubin [Mass/Vol] 0.4 mg/dL Normal 0.2-1.0 [facility] Comment on above: Performed By: #### T SH, URIC, CMP, LIPID #### [facility] [address] [address] [address] Candy Cortez Calcium [Mass/Vol] 9.1 mg/dL Normal 8.5-10.1 [facility] Comment on above: Performed By: #### T SH, URIC, CMP, LIPID #### [facility] [address] [address] [address] Candy Cortez Chloride [Moles/Vol] 103 mmol/L Normal 98-107 [facility] Comment on above: Performed By: #### T SH, URIC, CMP, LIPID #### [facility] [address] [address] [address] Candy Cortez CO2 [Moles/Vol] 29.0 mmol/L Normal 21.0-32.0 [facility] Comment on above: Performed By: #### T SH, URIC, CMP, LIPID #### [facility] [address] [address] [address] Candy Cortez Creatinine [Mass/Vol] 0.72 mg/dL Normal 0.55-1.02 [facility] Comment on above: Performed By: #### T SH, URIC, CMP, LIPID #### [facility] [address] [address] [address] Candy Cortez EGFR-AF CUBAN >60 Normal >=60 [facility] Comment on above: Performed By: #### T SH, URIC, CMP, LIPID #### [facility] [address] [address] [address] Candy Cortez EGFR-NON AF CUBAN >60 Normal >=60 [facility] Comment on above: Performed By: #### T SH, URIC, CMP, LIPID #### [facility] [address] [address] [address] Candy Cortez Globulin (S) [Mass/Vol] 3.7 g/dL Normal [facility] Comment on above: Performed By: #### T SH, URIC, CMP, LIPID #### [facility] [address] [place] [address] Dr. Candy Cortez Glucose [Mass/Vol] 93 mg/dL Normal 74-106 [facility] Comment on above: Performed By: #### T SH, URIC, CMP, LIPID #### [facility] [address] [place] [address] Dr. Candy Cortez Potassium [Moles/Vol] 4.7 mmol/L Normal 3.5-5.1 [facility] Comment on above: Performed By: #### T SH, URIC, CMP, LIPID #### [facility] [address] [place] [address] Dr. Cnady Cortez Protein [Mass/Vol] 7.3 g/dL Normal 6.4-8.2 [facility] Comment on above: Performed By: #### T SH, URIC, CMP, LIPID #### [facility] [address] [place] [address] Dr. Candy Cortez Sodium [Moles/Vol] 137 mmol/L Normal 136-145 [facility] Comment on above: Performed By: #### T SH, URIC, CMP, LIPID #### [facility] [address] [place] [address] Dr. Candy Cortez Urea nitrogen [Mass/Vol] 12.0 mg/dL Normal 7.0-18.0 [facility] Comment on above: Performed By: #### T SH, URIC, CMP, LIPID #### [facility] [address] [place] [address] Dr. Candy Cortez Urea nitrogen/Creatinine [Mass ratio] 16.7 mg/mg Normal [facility] Comment on above: Performed By: #### T SH, URIC, CMP, LIPID #### [facility] [address] [place] [address] Dr. Candy Cortez TSHon 01-22-2022 TSH 0.748 uIU/mL Normal 0.358-3.740 [facility] Comment on above: Performed By: #### T SH, URIC, CMP, LIPID #### [facility] [address] [place] [address] Dr. Candy Cortez UA RANDOM W/MICROSCOPICon BACTERIA NONE SEEN Normal NONE SEEN [facility] Comment on above: Performed By: #### U AMIC #### [facility] [address] [place] [address] Dr. Candy Cortez Bilirubin Ql (U) Negative Normal NEGATIVE [facility] Comment on above: Performed By: #### U AMIC #### [facility] [address] [place] [address] Dr. Candy Cortez CAST NONE SEEN Normal NONE SEEN [facility] Comment on above: Performed By: #### U AMIC #### [facility] [address] [place] [address] Dr. Candy Cortez Clarity (U) CLEAR Normal CLEAR [facility] Comment on above: Performed By: #### U AMIC #### [facility] [address] [place] [address] Dr. Candy Cortez Color (U) LT. YELLOW Normal YELLOW [facility] Comment on above: Performed By: #### U AMIC #### [facility] [address] [place] [address] Dr. Candy oCrtez Crystals LM Nom (Urine sed) NONE SEEN Normal NONE SEEN The [facility] Comment on above: Performed By: #### U AMIC #### [facility] [address] [place] [address] Dr. Candy Cortez Epithelial cells LM Ql (Urine sed) RARE Normal NONE SEEN /RARE [facility] Comment on above: Performed By: #### U AMIC #### [facility] [address] [address] [address] Candy Cortez Glucose Ql (U) Negative Normal NEGATIVE The [facility] Comment on above: Performed By: #### U AMIC #### [facility] [address] [address] [address] Candy Cortez Hemoglobin Ql (U) Negative Normal NEGATIVE The [facility] Comment on above: Performed By: #### U AMIC #### [facility] [address] [address] [address] Candy Cortez Ketones Ql (U) Negative Normal NEGATIVE The [facility] Comment on above: Performed By: #### U AMIC #### [facility] [address] [address] [address] Candy Cortez LEUKOCYTES Negative Normal NEGATIVE The [facility] Comment on above: Performed By: #### U AMIC #### [facility] [address] [address] [address] Candy Cortez MUCOUS TRACE Abnormal NONE SEEN [facility] Comment on above: Performed By: #### U AMIC #### [facility] [address] [address] [address] Candy Cortez Nitrite Ql (U) Negative Normal NEGATIVE The [facility] Comment on above: Performed By: #### U AMIC #### [facility] [address] [address] [address] Candy Cortez pH (U) 7.0 [pH] Normal 5-9 [facility] Comment on above: Performed By: #### U AMIC #### [facility] [address] [address] [address] Candy Cortez RBC NONE SEEN Abnormal 0-2 The [facility] Comment on above: Performed By: #### U AMIC #### [facility] [address] [address] [address] Candy Cortez SPEC GRAVITY 1.020 Normal 1.005-<=1.025 The [facility] Comment on above: Performed By: #### U AMIC #### [facility] [address] [address] [address] Candy Cortez UA PROTEIN Negative Normal NEGATIVE/ TRACE The [facility] Comment on above: Performed By: #### U AMIC #### [facility] [address] [address] [address] Candy Cortez Urobilinogen Qn (U) 0.2 {Nicko'U}/dL Normal 0.2 - 1. 0 [facility] Comment on above: Performed By: #### U AMIC #### [facility] [address] [address] [address] Candy Cortez WBC NONE SEEN Normal NONE SEEN The [facility] Comment on above: Performed By: #### U AMIC #### [facility] [address] [place] [address] Dr. Candy Cortez URIC ACID SERUMon 01-22-2022 Urate [Mass/Vol] 3.1 mg/dL Normal 2.6-6.0 [facility] Comment on above: Performed By: #### T SH, URIC, CMP, LIPID #### [facility] [address] [place] [address] Dr. Candy Cortez Vital Signs Date Time Vital Sign Value Performing Clinician Joaquin sage 03-26-2024 15:050 Body height 162.6 cm Den Olga DO Work Phone: [facility] 03-26-2024 15:21-0500 Body mass index (BMI) [Ratio] 27.33 kg/m2 Den Olga DO Work Phone: [facility] 03-26-2024 15:21-0500 Body weight 72.21 kg Den Olga DO Work Phone: [facility] 03-26-2024 15:21-0500 Diastolic blood pressure 88 mm[Hg] Den Olga DO Work Phone: [facility] 03-26-2024 15:21-0500 Heart rate 78 /min Den Olga DO Work Phone: [facility] 03-26-2024 15:21-0500 SaO2% (BldA) [Mass fraction] 98 % Den Olga DO Work Phone: [facility] 03-26-2024 15:21-0500 Systolic blood pressure 136 mm[Hg] Den Espinoza DO Work Phone: [facility] 01-16-2024 10:52-0500 Body height 162.56 cm Carmela Aichholz Work Phone: [facility] 01-16-2024 10:52-0500 Body mass index (BMI) [Ratio] 27 kg/m2 Carmela Aichholz Work Phone: [facility] 01-16-2024 10:52-0500 Body weight 71.44 kg Carmela Aichholz Work Phone: [facility] 12-26-2023 10:03-0400 Body height 162.56 cm Carmela Aichholz Work Phone: [facility] 12-26-2023 10:03-0400 Body mass index (BMI) [Ratio] 26.9 kg/m2 Carmela Aichholz Work Phone: [facility] 12-26-2023 10:03-0400 Body weight 71.32 kg Carmela Aichholz Work Phone: [facility] 12-01-2023 12:58-0400 Body height 162.56 cm Carmela Aichholz Work Phone: [facility] 12-01-2023 12:58-0400 Body mass index (BMI) [Ratio] 27 kg/m2 Carmela Aichholz Work Phone: [facility] 12-01-2023 12:58-0400 Body weight 71.38 kg Carmela Aichholz Work Phone: [facility] 10-27-2023 13:18-0400 Body weight 70.76 kg Carmela Aichholz Work Phone: [facility] 10-06-2023 14:11-0400 Body weight 70.76 kg [facility] Encounters Encounter Date Encounter Type Care Provider Facility Start: 06-04-2024 End: 06-04-2024 ambulatory EHAB [facility] Start: 04-09-2024 End: 04-09-2024 Patient encounter procedure Den Olga DO Work Phone: [facility] Comment on above: Idiopathic periphera l neuropathy Start: 04-09-2024 End: 04-09-2024 ambulatory DEN OLGA Not Available Start: 04-09-2024 End: 04-09-2024 Bamboo flowsheet Den Olga DO Work Phone: [facility] Start: 04-09-2024 End: 04-09-2024 Bamboo flowsheet Den Olga DO Work Phone: [facility] Start: 03-31-2024 End: 03-31-2024 Clinisync Result Encounter Den Olga DO Work Phone: [facility] Unsolicited Start: 03-31-2024 End: 03-31-2024 Clinisync Result Encounter Den Olga DO Work Phone: [facility] Unsolicited Start: 03-26-2024 End: 03-26-2024 Office consultation new/estab patient 60 min Den Olga DO Work Phone: [facility] Comment on above: Idiopathic periphera l neuropathy (Primary Dx); Numbness and tingling; Arthralgia, unspecified joint Start: 03-26-2024 End: 03-26-2024 ambulatory DEN OLGA Not Available Start: 03-26-2024 End: 03-26-2024 Bamboo flowsheet Den Olga DO Work Phone: [facility] Start: 03-26-2024 End: 03-26-2024 Bamboo flowsheet Den Olga DO Work Phone: [facility] Start: 03-13-2024 End: 03-14-2024 Refill Carmela Lester SR. MANAGER [employer]PORATE [employer]ICATIONS Work Phone: [facility] Comment on above: Essential hypertensi on ([facility]) Start: 03-02-2024 End: 03-02-2024 ambulatory Milton Appiah Facility:[facility] Start: 02-29-2024 End: 02-29-2024 Refill Carmela Lester SR. MANAGER [employer] Work Phone: [facility] Comment on above: Coronary artery dise ase involving [place] coronary artery of [place] heart without angina pectoris ([facility]) Start: 02-07-2024 End: 02-08-2024 Telephone encounter Carmela Trevon SR. MANAGER [employer]PORATE [employer]ICATIONS Work Phone: [facility] Start: 02-01-2024 End: 02-01-2024 Patient encounter procedure Carmela Lester Work Phone: [facility] Work Phone: Start: 02-01-2024 End: 02-01-2024 ambulatory Carmela Rossz Work Phone: [facility] Work Phone: Start: 01-16-2024 End: 01-16-2024 Patient encounter procedure Carmela Codyz Work Phone: [facility] Work Phone: Start: 01-13-2024 End: 01-13-2024 Patient encounter procedure Carmela Codyz Work Phone: [facility] [place] Work Phone: Start: 01-13-2024 End: 01-13-2024 ambulatory Carmela J Aichholz Work Phone: [facility] Work Phone: Start: 12-26-2023 End: 12-26-2023 ambulatory Carmela J Aichholz Work Phone: [facility] Work Phone: Start: 12-26-2023 End: 12-26-2023 Patient encounter procedure Carmela Lester Work Phone: [facility] Neuro[facility] Work Phone: Start: 12-12-2023 End: 12-12-2023 ambulatory Nikki Gayle MD Facility:[facility] [place] Start: 12-01-2023 End: 12-01-2023 ambulatory Carmela Lester Work Phone: [facility] Work Phone: Start: 12-01-2023 End: 12-01-2023 Patient encounter procedure Carmela Lester Work Phone: [facility] Neurosurgery Work Phone: Start: 11-24-2023 End: 11-25-2023 Refill Carmela Lester SR. MANAGER [employer]PORATE [employer]ICATIONS Work Phone: [facility] Comment on above: Coronary artery dise ase involving [place] coronary artery of [place] heart without angina pectoris (CMS/HCC) Start: 11-22-2023 End: 11-22-2023 Refill Carmela Lester SR. MANAGER [employer]PORATE [employer]ICATIONS Work Phone: [facility] Comment on above: Coronary artery dise ase involving [place] coronary artery of [place] heart without angina pectoris (CMS/HCC); Neuropathy; Essential hypertension (CMS/HCC); Hypothyroidism (acquired) (CMS/HCC); Primary hypertension (CMS/HCC); Trapezius muscle spasm Start: 11-21-2023 End: 11-21-2023 ambulatory Nikki Gayle MD Facility:[facility] [place] Start: 10-31-2023 End: 10-31-2023 ambulatory Nikki Gayle MD Facility:[facility] [place] Start: 10-27-2023 End: 10-27-2023 ambulatory Carmela Lester Work Phone: [facility] Work Phone: Start: 10-27-2023 End: 10-27-2023 Patient encounter procedure Carmela Aichholz Work Phone: [facility] Work Phone: Start: 10-27-2023 End: 10-27-2023 Patient encounter procedure Carmela Aichholz Work Phone: [facility] [place] Work Phone: Start: 10-27-2023 End: 10-27-2023 ambulatory Carmela J Aichholz Work Phone: [facility] Work Phone: Start: 10-06-2023 End: 10-06-2023 ambulatory [facility] Work Phone: Start: 10-06-2023 End: 10-06-2023 Patient encounter procedure [facility] Neurosurgery Work Phone: Start: 09-29-2023 End: 09-29-2023 ambulatory ASHUTOSH QUINTANA Not Available Start: 09-07-2023 End: 09-07-2023 ambulatory CARMELA AICHHOLZ Not Available Start: 07-11-2023 End: 07-11-2023 ambulatory CARMELA AICHHOLZ Not Available Start: 06-08-2023 End: 06-08-2023 ambulatory AB [facility] Start: 05-30-2023 End: 05-30-2023 ambulatory CARMELA AICHHOLZ Not Available Start: 05-10-2023 End: 05-10-2023 ambulatory CARMELA AICHHOLZ Not Available Start: 07-22-2022 End: 07-23-2022 ambulatory OPERATIONS PROJECT MANAGER CARMELA AICHHOLZ Facility:[facility] Start: 07-05-2022 End: 07-06-2022 ambulatory OPERATIONS PROJECT MANAGER CARMELA AICHHOLZ Facility:[facility] Start: 05-10-2022 End: 05-11-2022 ambulatory OPERATIONS PROJECT MANAGER CARMELA AICHHOLZ Facility:[facility] Start: 01-22-2022 End: 01-23-2022 ambulatory OPERATIONS PROJECT MANAGER CARMELA AICHHOLZ Facility:[facility] Procedures Date Procedure Procedure Detail Performing Clinician Start: 04-09-2024 End: 04-09-2024 Needle emg ea extremty w/paraspinl area complete Den Espinoza DO Work Phone: Start: 03-31-2024 ALL FOLIC ACID Den tello DO Work Phone: Start: 01-13-2024 MRI of cervical spin e without contrast Carmela Lester Work Phone: Start: 10-27-2023 X-ray of cervical spine Carmela Lester Work Phone: Plan of Treatment Date Care Activity Detail Author Start: 02-25-2026 Screening for malign ant neoplasm of colon [facility] Start: 05-23-2024 End: 05-23-2024 Patient encounter procedure 05/23/2024 1:15 PM EDT Office Visit [facility] [address] [place] [id number] Den Espinoza DO [address] [place] [address] [facility] Start: 05-17-2024 End: 05-17-2024 Patient encounter procedure 05/17/2024 1:15 PM EST Office Visit [facility] [address] [place] [phone] Den Espinoza, DO [address] [place] [address] [facility] Start: 04-09-2024 End: 04-09-2024 Patient encounter procedure [facility] Comment on above: Arrived Start: 03-26-2024 End: 03-26-2024 Patient encounter procedure LILY DIAZ [address] Comment on above: Arrived Start: 03-26-2024 End: 03-26-2025 Cobalamin (Vitamin B12) [Mass/volume] in Serum or Plasma Vitamin B12 Lab Routine Idiopathic peripheral neuropathy Expected: 03/26/2024 (Approximate), Expires: 03/26/2025 [facility] Work Phone: Comment on above: Expected: 03/26/2024 (Approximate), Expires: 03/26/2025 Start: 03-26-2024 End: 03-26-2025 EMG 2 Extremities EMG 2 Extremities Neurology Routine Idiopathic peripheral neuropathy Expected: 03/26/2024 (Approximate), Expires: 03/26/2025 [facility] Comment on above: Expected: 03/26/2024 (Approximate), Expires: 03/26/2025 Start: 03-26-2024 End: 03-26-2025 Folate [Mass/volume] in Serum or Plasma Folate Lab Routine Idiopathic peripheral neuropathy Expected: 03/26/2024 (Approximate), Expires: 03/26/2025 [facility] Comment on above: Expected: 03/26/2024 (Approximate), Expires: 03/26/2025 Start: 03-26-2024 End: 03-26-2025 Nuclear Ab [Titer] in Serum by Immunofluorescence [facility] Lab Routine Idiopathic peripheral neuropathy Expected: 03/26/2024 (Approximate), Expires: 03/26/2025 [facility] Comment on above: Expected: 03/26/2024 (Approximate), Expires: 03/26/2025 Start: 03-26-2024 End: 03-26-2025 NVC 9-10 Nerves NVC 9-10 Nerves Neurology Routine Idiopathic peripheral neuropathy Expected: 03/26/2024 (Approximate), Expires: 03/26/2025 [facility] Comment on above: Expected: 03/26/2024 (Approximate), Expires: 03/26/2025 Start: 03-26-2024 End: 03-26-2025 Protein electrophoresis, serum Protein electrophoresis, serum Lab Routine Idiopathic peripheral neuropathy Expected: 03/26/2024 (Approximate), Expires: 03/26/2025 [facility] Comment on above: Expected: 03/26/2024 (Approximate), Expires: 03/26/2025 Start: 03-26-2024 End: 03-26-2025 Rheumatoid factor [Units/volume] in Serum or Plasma Rheumatoid factor Lab Routine Idiopathic peripheral neuropathy Expected: 03/26/2024 (Approximate), Expires: 03/26/2025 [facility] Comment on above: Expected: 03/26/2024 (Approximate), Expires: 03/26/2025 Start: 03-20-2024 End: 03-20-2024 Patient encounter procedure 03/20/2024 1:20 PM EST Office Visit [facility] [address] [place] [phone] Carmela Lester, EMMANUEL [address] [place] [phone] [facility] Start: 11-13-2023 Influenza vaccination Influenz a Vaccine (#1) [facility] Start: 10-27-2023 X-ray of cervical spine XR cer v spine AP/LAT/FLX/EXT [facility] Start: 10-27-2023 XR Cervical spine 4 Views [facility] Start: 10-06-2023 Patient referral [facility] Work Phone: Start: 2001 Screening for malign ant neoplasm of cervix HPV/Cotest [facility] Start: 02-28-1992 Screening for malign ant neoplasm of cervix Pap Smear [facility] Start: 1971 Screening for malign ant neoplasm of colon [facility] Electromyography [facility] MR Cervical spine WO contrast [facility] Patient referral [facility] Work Phone: XR Cervical spine 4 Views [facility] Immunizations Immunization Date Immunization Notes Care Provider Fa [facility] 11-04-2022 influenza, injectabl e, quadrivalent, preservative free Carmela Trevon SR. MANAGER [employer]PORATE [employer]ICATIONS Work Phone: [facility] 11-04-2022 Pneumococcal Conjuga te PCV 20 Carmela Trevon SR. MANAGER [employer]PORATE COMM[employer]ICATIONS Work Phone: [facility] 11-04-2022 influenza virus vacc ine, unspecified formulation Carmela Lester SR. MANAGER [employer]PORATE [employer]ICATIONS Work Phone: [facility] 01-01-2022 influenza, injectabl e, quadrivalent, preservative free Carmela Toshiaholz SR. MANAGER CORPORATE COMM[employer]ICATIONS Work Phone: [facility] 01-03-2021 influenza, injectabl e, quadrivalent, preservative free Carmela Toshiaholz SR. MANAGER [employer]PORATE COMM[employer]ICATIONS Work Phone: [facility] 12-11-2019 influenza, injectabl e, quadrivalent, preservative free Carmela Aichholz SR. MANAGER [employer]PORATE COMM[employer]ICATIONS Work Phone: [facility] 11-03-2018 influenza, injectabl e, quadrivalent, preservative free Carmela Aichholz SR. MANAGER [employer]PORATE COMM[employer]ICATIONS Work Phone: [facility] 11-03-2018 pneumococcal polysaccharide vaccine, 23 valent Carmela Aichholz SR. MANAGER [employer]PORATE COMM[employer]ICATIONS Work Phone: [facility] 12-23-2017 influenza, injectabl e, quadrivalent, preservative free Carmela Aichholz SR. MANAGER CORPORATE COMMUNICATIONS Work Phone: [facility] Payers Date Payer Category Payer Self-pay 2022 Private Health Insurance [employer] [id number] 2022 Unknown 1971 Unknown [id number]. [id number] 1971 Unknown [id number] [id number]. 593 1971 Unknown [id number] 2..[id number]. 593 1971 Unknown [id number] [id number]. 593 1971 Unknown [id number] 2..840.1.072642.3.579.2. 196 1971 Unknown [id number] 2.16.840.1.328523.3.579.2. 196 1971 Unknown [id number] 2.16.840.1.277296.3.579.2. 196 1971 Unknown [id number] 2.16.840.1.713517.3.579.2. 1259 1971 Unknown [id number] 2.16.840.1.613415.3.579.2. 1259 1971 Unknown [id number] 2.16.840.1.473569.3.579.2. 1259 1971 Unknown [id number] 2.16.840.1.940930.3.579.2. 1259 1971 Unknown [id number] 2.16.840.1.222211.3.579.2. 1259 1971 Unknown [id number] 2.16.840.1.399372.3.579.2. 1259 1971 Unknown [id number] 2.16.840.1.926640.3.579.2. 1259 1959 Unknown [id number] Unknown [id number] 2.16.840.1.813328.3.579.2. 531 Unknown [id number] 2.16.840.1.807136.3.579.2. 531 Unknown [id number] 2.16.840.1.417869.3.579.2. 531 Unknown [id number] [id number]. 531 Social History Date Type Detail [facility] Work Phone: Start: 1970 Sex Assigned At Female F [facility] if ever smoked [facility] Work Phone: Start: 02-02-2024 Sex Patient sex un known (finding) [facility] Start: 02-07-2023 [facility] History of tobacco use Cigarette Smoker [facility] Start: 02-07-2023 End: 05-30-2023 Cigarettes smoked current (pack per day) - Reported 1 [facility] Start: 09-07-2023 End: 03-26-2024 Alcoholic beverage intake Lifetime non-drinker (finding) [facility] Start: 05-30-2023 End: 09-07-2023 Tobacco use panel [facility] Start: 1970 Sex assigned at Not on file [facility] Start: 03-26-2024 Tobacco smoking stat [facility] Ex-smoker [facility] History of tobacco use Current smoker [facility] Start: 03-26-2024 Tobacco use and exposure Smokeless tobacco non-user [facility] Clinical Notes 06-08-2023 to 06-04-2024 Walker Nicole, ARRT - 04/09/2024 4:00 PM ESTNicerika Espinoza DO - 03/26/2024 4:00 PM ESTTelephone Encounter - Carmela Lester, EMMANUEL - 02/07/2024 8:35 PM EST Note Date & Type Note Facility 06-04-2024 Note [facility] Cardiology Clinic Note Chief Complaint: Patient here for 1 year follow up CAD, hypertension, dyslipidemia, and Prinzmetal angina. No recent labs or imaging. She is not taking aspirin. Chest pain and SOB has resolved. HPI: Diane Canas is a 54 y.o. female who I performed a cardiac [...] ROS: Review of Systems Constitutional: Positive for malaise/fatigue and weight loss (14# since May 2023). All other systems reviewed and are negative. Past Medical History She has a past medical history of Coronary artery disease, Hyperlipidemia, and Hypertension. Surgical History She has a past surgical history that includes Cardiac catheterization and Coronary artery bypass graft. Social History She has no history on file for tobacco use, alcohol use, and drug use. Family History Family History Problem Relation Name Age of Onset Coronary artery disease Father Allergies Patient has no known allergies. Medications Current Outpatient Medications: allopurinol (Zyloprim) 100 mg tablet, , Disp: , Rfl: aspirin 325 mg tablet, Take 1 tablet every day by oral route., Disp: , Rfl: atorvastatin (Lipitor) 80 mg tablet, Take 80 mg by mouth in the evening., Disp: , Rfl: ezetimibe (Zetia) 10 mg tablet, Take 10 mg by mouth in the morning., Disp: , Rfl: gabapentin (Neurontin) 300 mg capsule, , Disp: , Rfl: isosorbide mononitrate ER (Imdur) 120 mg 24 hr tablet, Take 120 mg by mouth in the morning., Disp: , Rfl: levothyroxine (Synthroid, Levoxyl) 75 mcg tablet, , Disp: , Rfl: lisinopril 20 mg tablet, Take 2 tablets by mouth at bedtime., Disp: , Rfl: metoprolol tartrate (Lopressor) 100 mg tablet, Take 1 tablet by mouth in the morning and at bedtime. In addition to metopro tartrate 25mg bid = 125mg bid, Disp: , Rfl: metoprolol tartrate (Lopressor) 25 mg tablet, Take 25 mg by mouth twice a day. In addition to metoprolol tartrate 100mg bid= 125mg bid, Disp: , Rfl: nitroglycerin (Nitrostat) 0.4 mg SL tablet, place 1 tablet under the tongue if needed every 5 minutes for anabel... (REFER TO PRESCRIPTION NOTES)., Disp: , Rfl: tiZANidine (Zanaflex) 4 mg tablet, take 1 tablet by mouth at bedtime if needed for muscle spasm FOR ... (REFER TO PRESCRIPTION NOTES)., Disp: , Rfl: verapamil (Calan) 80 mg tablet, Take 80 mg by mouth three times daily., Disp: , Rfl: Last Recorded Vitals BP 128/84 (BP Location: Right arm, Patient Position: Sitting) Pulse 85 Ht 1.626 m (5' 4 ) Wt 65.8 kg (145 lb) SpO2 99% BMI 24.89 kg/m??? ' Physical Examination: GENERAL: alert and oriented x3, [...] factor modification 2. Optimization medical management; add calc (more content not included)... [facility] 04-09-2024 History of Present illness Narrative Images from the original note were not included. Reason for Appointment: EMG Patient: Diane Canas : 1970 EMG Computer: [employer] Referring Physician: Dr. Den Espinoza EMG: BLE budget counselor: Walker Nicole RT(R) Office Location: [place] Reason for EMG: c/o numbness/tingling in bilateral feet/lower legs, low back pain that radiates down bilateral legs L>R. Hx of surgery to left ankle. No hx of DM. Taking ASA. Comments: Procedure was explained to the patient who expressed understanding. Patient appeared to have tolerated the test well despite some discomfort due to the nature of the test. documented in this encounter [facility] 03-26-2024 History of Present illness Narrative Images from the original note were not included. Chief Complaint Patient presents with Numbness Tingling Subjective Diane Canas, 54 y.o., female HPI Paresthesia of skin - [place] [facility] [place], MRI brain ordered but pending; referral received from Dr Milton Appiah, DO The patient states that she has [...] She had EMG here and at [facility] Borderline right CTS. She had the EMG 2020 BLE She is on the neurontin 900mb bid Past Medical History: Diagnosis Date Abnormal ankle brachial index (LYSSA) 05/10/2023 Asymptomatic microscopic hematuria 05/10/2023 Back pain, chronic 05/10/2023 Bilateral hand pain 05/10/2023 Bronchitis 02/07/2023 CAD (coronary artery disease) (CMS/HCC) 05/10/2023 Closed traumatic minimally displaced fracture of proximal end of fibula with routine healing 05/10/2023 Fatigue GERD (gastroesophageal reflux disease) 05/10/2023 Gout 05/09/2023 History of irregular menstrual cycles Hyperlipidemia ([facility]) Joint pain Left ankle pain Loud snoring 05/10/2023 Lumbosacral radiculopathy at S1 05/10/2023 Menorrhagia 05/10/2023 Myocardial infarction ([facility]) 05/10/2023 Neuropathy 05/10/2023 Paresthesia of foot Peripheral artery disease ([facility]) 05/10/2023 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[facility]) 05/10/2023 Seasonal allergies 05/10/2023 Tobacco user 05/10/2023 [...] extremity in September most recently at [facility] that was not entirely convincing for any [...] clinic: 3 weeks documented in this encounter [facility] 02-07-2024 Telephone encounter Note Please call and schedule a fu appt for pt [place] [facility] 02-07-2024 Miscellaneous Notes Please call and schedule a fu appt for pt [place] documented in this encounter [facility] 12-01-2023 Evaluation note Diagnosis Onset Date Resolution Arm pain acute November 12:52pm Cervical radiculopathy acute Se ptember 2023 12:52pm Neck pain acute November 12:52pm Cervical radiculopathy acute Oc tober 2023 9:58am Ulnar neuropathy at elbow acute January 15 10:50am [facility] Work Phone: [phone] 461-783603-27-2024 [facility] Chief Complaint: [...] he is to underg (more content not included)...[facility] Evaluation [facility]No [facility]* Diagnosis Onset Date Resolution Status Arm pain acute Cervical radiculopathy acute Ulnar neuropathy at elbow ac [place]alton Arm pain acute Neck pain acute Ulnar neuropathy at elbow ac nondalton [facility] Work Phone: Evaluation note* Diagnosis Onset Date Resolution Status Arm pain acute Cervical radiculopathy acute Ulnar neuropathy at elbow ac [place] Arm pain acute Neck pain acute Ulnar neuropathy at elbow ac [place] Arm pain acute Cervical radiculopathy acute Neck pain acute Cervical radiculopathy acute [facility] Work Phone: Evaluation note* Diagnosis Onset Date Resolution Status Arm pain acute Neck pain acute Ulnar neuropathy at elbow ac [place] Arm pain acute Cervical radiculopathy acute Neck pain acute Cervical radiculopathy acute [facility] Work Phone: Evaluation note* Diagnosis Coronary artery disease involving [place] coronary artery of [place] heart without angina pectoris (CMS/HCC) documented in this encounter [facility] HealthcareEvaluation note* Diagnosis Colon cancer screening- Primary Special screening for malignant neoplasms, colon Atherosclerosis of [place] coronary artery without angina pectoris, unspecified whether [place] or transplanted heart (CMS/HCC) Essential hypertension (CMS/HCC) Unspecified essential hypertension Hypothyroidism (acquired) (CMS/HCC) Unspecified hypothyroidism Idiopathic gout, unspecified chronicity, unspecified site Bronchitis Bronchitis, not specified as acute or chronic Essential hypertension (CMS/HCC)- Primary Unspecified essential hypertension Coronary artery disease involving [place] coronary artery of [place] heart without angina pectoris (CMS/HCC) Trapezius muscle spasm Tobacco user Tobacco use disorder Essential hypertension (CMS/HCC)- Primary Unspecified essential hypertension Coronary artery disease involving [place] coronary artery of [place] heart without angina pectoris (CMS/HCC) Trapezius muscle spasm Tobacco user Tobacco use disorder Cervical neck pain with evidence of disc disease- Primary Other and unspecified disc disorder of cervical region Trapezius muscle spasm Tobacco user Tobacco use disorder Cervical stenosis of spinal canal- Primary Spinal stenosis in cervical region Cervical radiculopathy Brachial neuritis or radiculitis nos Coronary artery disease involving [place] coronary artery of [place] heart without angina pectoris (CMS/HCC) documented in this encounter [facility] HealthcareEvaluation note* Diagnosis Coronary artery disease involving [place] coronary artery of [place] heart without angina pectoris (CMS/HCC) Neuropathy Mononeuritis of unspecified site Essential hypertension (CMS/HCC) Unspecified essential hypertension Hypothyroidism (acquired) (CMS/HCC) Unspecified hypothyroidism Primary hypertension (CMS/HCC) Unspecified essential hypertension Trapezius muscle spasm documented in this encounter [facility]* Diagnosis Colon cancer screening- Primary Special screening for malignant neoplasms, colon Atherosclerosis of [place] coronary artery without angina pectoris, unspecified whether [place] or transplanted heart (CMS/HCC) Essential hypertension (CMS/HCC) Unspecified essential hypertension Hypothyroidism (acquired) (CMS/HCC) Unspecified hypothyroidism Idiopathic gout, unspecified chronicity, unspecified site Bronchitis Bronchitis, not specified as acute or chronic Essential hypertension (CMS/HCC)- Primary Unspecified essential hypertension Coronary artery disease involving [place] coronary artery of [place] heart without angina pectoris (CMS/HCC) Trapezius muscle spasm Tobacco user Tobacco use disorder Essential hypertension (CMS/HCC)- Primary Unspecified essential hypertension Coronary artery disease involving [place] coronary artery of [place] heart without angina pectoris (CMS/HCC) Trapezius muscle [...] screening for malignant neoplasms, colon Atherosclerosis of [place] coronary artery without angina pectoris, unspecified whether [place] or transplanted heart (CMS/HCC) Essential hypertension (CMS/HCC) Unspecified essential hypertension Hypothyroidism (acquired) (CMS/HCC) Unspecified hypothyroidism Idiopathic gout, unspecified chronicity, unspecified site Bronchitis Bronchitis, not specified as acute or chronic Essential hypertension (CMS/HCC)- Primary Unspecified essential hypertension Coronary artery disease involving [place] coronary artery of [place] heart without angina pectoris (CMS/HCC) Trapezius muscle spasm Tobacco user Tobacco use disorder Essential hypertension (CMS/HCC)- Primary Unspecified essential hypertension Coronary artery disease involving [place] coronary artery of [place] heart without angina pectoris (CMS/HCC) Trapezius muscle [...] unspecified joint documented in this encounter [facility]* Diagnosis Colon cancer screening- Primary Special screening for malignant neoplasms, colon Atherosclerosis of [place] coronary artery without angina pectoris, unspecified whether [place] or transplanted heart (CMS/HCC) Essential hypertension (CMS/HCC) Unspecified essential hypertension Hypothyroidism (acquired) (CMS/HCC) Unspecified hypothyroidism Idiopathic gout, unspecified chronicity, unspecified site Bronchitis Bronchitis, not specified as acute or chronic Essential hypertension (CMS/HCC)- Primary Unspecified essential hypertension Coronary artery disease involving [place] coronary artery of [place] heart without angina pectoris (CMS/HCC) Trapezius muscle spasm Tobacco user Tobacco use disorder Essential hypertension (CMS/HCC)- Primary Unspecified essential hypertension Coronary artery disease involving [place] coronary artery of [place] heart without angina pectoris (CMS/HCC) Trapezius muscle spasm Tobacco user Tobacco use disorder Cervical neck pain with evidence of disc disease- Primary Other and unspecified disc disorder of cervical region Trapezius muscle spasm Tobacco user Tobacco use disorder Cervical stenosis of spinal canal- Primary Spinal stenosis in cervical region Cervical radiculopathy Brachial neuritis or radiculitis nos Idiopathic peripheral neuropathy Unspecified hereditary and idiopathic peripheral neuropathy [facility] this [facility] Dis[facility] instructionsAmbulatory Orders* Referral to Pain Management Location: None [facility] Work Phone: Summary Purpose Family History [...] Admit Date follow up after pain management Septembe r 2023 12:52pm refer back from pm [...] and content) DATE CREATED AUTHOR 07/25/2022 [facility] DATE CREATED AUTHOR AUTHOR'S ORGANIZ ATION 12/16/2023 [facility] DATE CREATED AUTHOR AUTHOR'S ORGANIZ ATION 03/06/2024 [facility] DATE CREATED AUTHOR AUTHOR'S ORGANIZ ATION 04/10/[address] [facility] DATE CREATED AUTHOR AUTHOR'S ORGANIZ ATION 06/05/2024 [facility] Care Teams (unrecognized sec tion and [...] Status: Active Member Role Status Dates Carmela Soler Osieldonislaura Primary Care Provider Active Sta rt: October 27, 2023 Loly Comer APRN Attending Provider Active Start: October 27, 2023 Team Status: Inactive Member Role Status Dates Carmela Soler Osieljerome Primary Care Provider Active Sta rt: October 27, 2023 End: October 27, 2023 Loly Comer APRN Attending Provider Active Start: October 27, 2023 End: October 27, 2023 Team Status: Inactive Member Role Status Dates Carmela Soler Osieldonislaura Primary Care Provider Active Sta rt: December 01, 2023 End: December 01, 2023 Loly Cmoer APRN Attending Provider Active Start: December 01, 2023 End: December 01, 2023 Team Status: Inactive Member Role Status Dates Carmela Soler Osieldonislaura Primary Care Provider Active Sta rt: December 26, 2023 End: December 26, 2023 Milton Appiah DO Attending Provider Active S tart: December 26, 2023 End: December 26, 2023 Team Status: Inactive Member Role Status Dates Carmela Soler Osieldonislaura Primary Care Provider Active Sta rt: January 13, 2024 End: January 13, 2024 Milton Appiah DO Attending Provider Active S tart: January 13, 2024 End: January 13, 2024 Team Status: Inactive Member Role Status Dates Carmela Karlene Cartagenadonislaura Primary Care Provider Active Sta rt: January 16, 2024 End: January 16, 2024 Milton Appiah DO Attending Provider Active S tart: January 16, 2024 End: January 16, 2024 Team Status: Inactive Member Role Status Dates Carmela Soler Osieldonislaura Primary Care Provider Active Sta rt: February 01, 2024 End: February 01, 2024 Milton Appiah DO Attending Provider Active S tart: February 01, 2024 End: February 01, 2024 Metalizing Supervisor Relationship Specialty Start Date End Date Parviz Stewart MD [address] [place] [address] PCP - General Family Medicine 05/10/23 Carmela Lester NP [address] [place] [phone] Referring Physician Nurse Practitioner 10/04/22 Carmela Lester NP [address] [place] [phone] Nurse Practitioner Family Medicine 05/10/23 Metalizing Supervisor Relationship Specialty Start Date End Date Parviz Stewart MD [address] [place] [phone] PCP - General Family Medicine 05/10/23 Carmela Lester NP [address] [place] [phone] Referring Physician Nurse Practitioner 10/04/22 Carmela Lester NP [address] [place] [phone] Nurse Practitioner Family Medicine 05/10/23 Metalizing Supervisor Relationship Specialty Start Date End Date Parviz Stewart MD [address] [place] [phone] PCP - General Family Medicine 05/10/23 Carmela Lester NP [address] [place] [phone] Referring Physician Nurse Practitioner 10/04/22 Carmela Lester NP [address] [place] [phone] Nurse Practitioner Family Medicine 05/10/23 Metalizing Supervisor Relationship Specialty Start Date End Date Parviz Stewart MD [address] [place] [phone] PCP - General Family Medicine 05/10/23 Carmela Lester NP [address] [place] [phone] Referring Physician Nurse Practitioner 10/04/22 Carmela Lester NP [address] [place] [phone] Nurse Practitioner Family Medicine 05/10/23 Metalizing Supervisor Relationship Specialty Start Date End Date Parviz Stewart MD [address] [place] [phone] PCP - General Family Medicine 05/10/23 Carmela Lester NP [address] [place] [phone] Referring Physician Nurse Practitioner 10/04/22 Carmela Lester NP [address] [place] [phone] Nurse Practitioner Family Medicine 05/10/23 Metalizing Supervisor Relationship Specialty Start Date End Date Parviz Stewart MD [address] [place] [phone] PCP - General Family Medicine 05/10/23 Carmela Lester NP [address] [place] [phone] Referring Physician Nurse Practitioner 10/04/22 Carmela Lester NP [address] [place] [phone] Nurse Practitioner Family Medicine 05/10/23 Metalizing Supervisor Relationship Specialty Start Date End Date Parviz Stewart MD [address] [place] [phone] PCP - General Family Medicine 05/10/23 Carmela Lester NP [address] [place] [phone] Referring Physician Nurse Practitioner 10/04/22 Carmela Lester NP [address] [place] [phone] Nurse Practitioner Family Medicine 05/10/23 Den Espinoza DO [address] [address] Referring Physician Neurology 03/27/24 Jessica Venegas NP [address] [facility] [address] [place] [address] Nurse Practitioner Neurology 03/27/24 Metalizing Supervisor Relationship Specialty Start Date End Date Parviz Stewart MD [address] [place] [phone] PCP - General Family Medicine 05/10/23 Carmela Lester NP [address] [place] [phone] Referring Physician Nurse Practitioner 10/04/22 Carmela Lester NP [address] [place] [phone] Nurse Practitioner Family Medicine 05/10/23 Den Espinoza DO [address] [place] [address] Referring Physician Neurology 03/27/24 Jessica Venegas NP [address] [place], [place] Nurse Practitioner Neurology 03/27/24 Goals (unrecognized section and content) Goals may [...] Tingling Specialty Diagnoses / Procedures Referred By Contac t Referred To Contact Neurology Diagnoses Paresthesia of skin Procedures MD OFFICE/OUTPATIENT NEW LOW MDM Milton Appiah MD Phone: tel: fax: Addy Lynn MD [address] [place] [address] Phone: tel: fax: Referral ID Status Reason Start Date Expiration Date V isits Requested Visits Authorized [id number] Closed Consult and Treat 02/15/2024 08/13/2024 1 [...] BE BASED ON THE PRIMARY CLINICAL RECORDS. [employer] [facility]. provides no warranty or guarantee of the accuracy or completeness of information in this document.
--- NOTE | 2024-06-21 13:41 | P.CN_ITS ---
Consult Note: HPI Data of Consult Patient: known to practice within the last 3 years Requesting Physician: Jaz Haley NP Primary Care Provider: Carmela Lester NP Consult Narrative Reason for consult: neck, right arm pain Narrative: 54yof who presents for evaluation. worsening pain that radiates from neck to right arm. imaging reviewed, significant for multilevel stenosis, worst at c3-4 and c5-6. has completed physical therapy > 6 weeks without lasting benefit. uses otc pain meds, as needed. finds mild benefit to gabapentin, currently taking 600mg AM and HS. evaluated by neurosurgery who does not recommend surgical intervention. Pain 3/10 increasing to 10/10 with twisting, work, and sleep. pt reports her previous right C3/4 C5/6 TFESI did provide >50% improvement for 3 months and she would like to repeat as they have worn off. cc:: CC: Jaz Haley NP Review of Systems ROS Status of ROS 10 or more systems reviewed and unremark able except as noted in history and below Musculoskeletal Reports: neck pain, extremity pain and muscle weakness PFSH [facility] Medical History (Updated 12/22/23 @ 13:06 by Jaz Haley NP) HTN (hypertension) ?I10 - Essential (primary) hypertension (ICD-10) Myocardial infarction ?I21.9 - Acute myocardial infarction, unspecified (ICD-10) Surgical History History of ankle surgery ?Z98.890 - Other specified postprocedural states (ICD-10) History of heart bypass surgery ?Z95.1 - Presence of aortocoronary bypass graft (ICD-10) Meds Home Medications and Allergies Home Medications ?Medication ?Instructions ?Recorded ?Confirmed ?Type allopurinol 300 mg tablet 300 mg PO DAILY 10/31/23 12/12/23 History aspirin 81 mg capsule 81 mg PO DAILY 10/31/23 12/12/23 History atorvastatin 80 mg tablet 80 mg PO DAILY 10/31/23 12/12/23 History ezetimibe 10 mg tablet 10 mg PO DAILY 10/31/23 12/12/23 History gabapentin 300 mg capsule 300 mg PO TID 10/31/23 12/12/23 History isosorbide mononitrate 120 mg 120 mg PO DAILY 10/31/23 12/12/23 History tablet,extended release 24 hr levothyroxine 75 mcg capsule 75 mcg PO DAILY 10/31/23 12/12/23 History lisinopril 20 mg tablet 20 mg PO BID 10/31/23 12/12/23 History metoprolol tartrate 100 mg tablet 125 mg PO BID 10/31/23 12/12/23 History (Lopressor) verapamil 80 mg tablet 80 mg PO TID 10/31/23 12/12/23 History gabapentin 300 mg capsule 600 mg (2 x 300 mg) PO TID #180 12/22/23 Rx caps gabapentin 300 mg capsule See Rx Instructions .Route 02/07/24 Rx .COMPLEX #180 caps gabapentin 300 mg capsule See Rx Instructions .Route 03/22/24 Rx .COMPLEX #180 caps Allergies Allergy/AdvReac Type Severity Reaction Status Date / Time adhesive Allergy Rash Verified 12/12/23 08:26 Exam Constitutional Documenting provider has reviewed patient's vital signs: yes Common normals: no apparent distress, oriented x3, healthy appearing, alert and well nourished General appearance: cooperative HENMT Common normals: normocephalic, hearing grossly normal bilaterally and moist oral mucous membranes Head and scalp: normocephalic Eye Common normals: PERRL Pupil: PERRL Neck & C-Spine Common normals: full ROM General: normal visual inspection Cervical spine: cervical ROM abnormal, pain with cervical ROM, cervical spine tenderness, paracervical muscle tenderness and other (positive spurlings ); no paracervical muscle spasm, no trapezius muscle tenderness and Lhermitte's sign negative Other: strength 4/5 in RUE 5/5 in LUE decreased sensation right C3,4 C5,6 Chest Common normals: inspection of chest normal Respiratory Common normals: normal respiratory effort, no retractions and no use of accessory muscles Neuro Common normals: oriented x3 and CN's II-XII intact bilaterally Sensorium/orientation: alert Motor exam: no movement abnormalities noted and strength abnormal Psych Common normals: mental status grossly normal, thought process normal, cooperative, affect normal, speech normal and activity/motor behavior normal Speech: normal speech Thought process: normal thought process Results Additional Findings Additional findings: If on a controlled substance or opioids, I have checked an [place] report on this patient and there are no aberrancies noted in the prescribing history.??If on a controlled substance or opioid a drug screen was completed and reviewed within the last year, and if there has not been a drug screen completed we ordered one today to monitor higher risk, state monitored pain medication use. As part of providing excellent, safe, comprehensive care, the following was completed at our patient's visit: 1. A medication reconciliation and review to ensure accurate knowledge of current/active medications, including asking our patients to inform us about any [id number] medications or herbal remedies/nutritional supplements/alternative remedies. 2. A review to specifically ensure our patients have had annual screening for screening for depression, screening for tobacco use, and screening for unhealthy alcohol use. For concerning screenings had a discussion with the patient, provided patient education, and recommended follow-up with primary care provider when appropriate. If patient noted with a risk of falling, they received education on strength, gait, and balance training to prevent future risk of falling. Assessment and Plan Assessment and Plan (1) Cervical stenosis of spinal canal: Assessment and Plan: CLYDE 24% with moderate to severe pain impacting adls, sleep, social life, travel The patient has had over 3 months of moderate to severe neck and RUE pain with functional impairment and inadequate response to conservative care including NSAIDS (unless there are contraindication such as concurrent blood thinners), multiple oral or topical pain medications, and home exercise program/physical therapy.? Patient has completed >6 weeks of guided home exercise program and/or formal physical therapy program without relief of their symptoms.? I have reviewed the imaging of the cervical spine and no red flags were identified.? The imaging reveals radiographic findings consistent with cervical stenosis, radiculopathy, spondylosis We discussed the risks and benefits of the procedure with the patient, and we are NOT planning on using sedation as outlined in the guidelines from Medicare unless there is a documented reason that sedation would be strongly recommend ed.?The procedure will be completed with fluoroscopic guidance.? (2) Cervical spondylosis: (3) Cervical radiculopathy: Plan repeat right C4/5 C5/6 TFESI as previous injection reduced pain by > 50% and provided >50% improvement in functional ability per pt increase gabapentin 900mg BID, risks vs benefits reviewed cleared by NS until symptoms and stenosis progress f/u 2 weeks after TFESI, consider cervical MBBs working towards RFA for facet mediated pain
== END 2024-06-21 13:17 | disposition home or self-care (01) ==
PROVIDERS: PCP Nurse Practitioner; Visit Provider Nurse Practitioner
DX: M48.02 Spinal stenosis, cervical region (principal); M47.812 Spondylosis without myelopathy or radiculopathy, cervical region; M54.12 Radiculopathy, cervical region
CPT/HCPCS: G0463

== ENCOUNTER 2024-07-09 07:53 | Day surgery (SDC) | payer OTHER, SELFPAY ==
[2024-07-09 08:44] VITALS: BP 145/88; PULSE 70; TEMP 36.2; O2SAT 99
[2024-07-09] MEDS: DEXAMETHASONE SOD PHOS 10 MG/ML VIAL INJ (09:07)
[2024-07-09] MEDS: BUPIVACAINE HCL 0.25% PF 25 MG/10 ML VIAL INJ (09:07)
[2024-07-09] MEDS: IOHEXOL 240 MG/ML - 10 ML VIAL 24 MG INJ (09:07)
[2024-07-09] MEDS: LIDOCAINE HCL 2% 400 MG/20 ML MDV INJ (09:08)
[2024-07-09 09:09] VITALS: BP 159/74; BP 163/90; PULSE 68; PULSE 69; O2SAT 100; O2SAT 97
--- NOTE | 2024-07-09 09:10 | P.ON_ITS ---
Date of procedure: 07/09/24 Pre-op diagnosis: M54.12 Post-op diagnosis: same as pre-op Procedure: Procedure: Right C3-4, C5-6 transforaminal epidural steroid injection Medications: Bupivacaine 0.25% 1cc, lidocaine 2% 1cc, dexamethasone 10mg The patient was seen and examined in the preoperative holding area.? Informed consent was obtained and placed on the chart.? Patient was brought to the medical procedure unit and placed in the prone position where a timeout was completed verifying the correct patient, procedure site, position, and planned special equipment using sterile aseptic technique.? Under direct fluoroscopic visualization a 25-gauge Quincke tipped spinal needle was advanced to the designated neural foramen where contrast dye was injected to show adequate spread.? The needle was inserted at level right C3-4. There was no evidence of vascular or adverse uptake.? Epidural spread was appreciated.? The above- mentioned injectate was then placed in a 1.5 mL aliquot preceded by negative aspiration.? The needle was removed. The needle was inserted and the procedure repeated at level right C5-6.? The surgery site was covered.? Patient was taken to the postprocedural recovery area and monitored for an appropriate length of time before found suitable for discharge in the accompaniment of a responsible adult. Anesthesia: Local Surgeon: Nikki Gayle Pathology: none sent Condition: stable Disposition: no change
== END 2024-07-09 09:15 | disposition home or self-care (01) ==
LOC: SURGOUT 07:54
PROVIDERS: PCP Nurse Practitioner; Visit Provider Anesthesiology
DX: M54.12 Radiculopathy, cervical region (principal)
CPT/HCPCS: 64479; 64480; J0665; J1100; Q9966

== ENCOUNTER 2024-07-18 14:21 | Outpatient (OUT) | payer OTHER, SELFPAY ==
--- NOTE | 2024-07-18 14:52 | PM.CN ---
Consult Note: HPI Data of Consult Patient: known to practice within the last 3 years Requesting Physician: Jaz Haley NP Primary Care Provider: Carmela Lester NP Consult Narrative Reason for consult: neck, right arm pain Narrative: 54yof who presents for evaluation. worsening pain that radiates from neck to right arm. imaging reviewed, significant for multilevel stenosis, worst at c3-4 and c5-6. has completed physical therapy > 6 weeks without lasting benefit. uses otc pain meds, as needed. finds mild benefit to gabapentin, currently taking 600mg AM and HS. evaluated by neurosurgery who does not recommend surgical intervention. Pain 4/10 increasing to 10/10 with twisting, work, and sleep. recent right C3/4 C5/6 TFESI with >50% improvement in radicular pain. continues to have moderate to severe axial neck pain. cc:: CC: Jaz Haley NP Review of Systems ROS Status of ROS 10 or more systems reviewed and unremarkable except as noted in history and below Musculoskeletal Reports: neck pain, extremity pain and muscle weakness PFSH PFSH Medical History (Updated 12/22/23 @ 13:06 by Jaz Haley NP) HTN (hypertension) ?I10 - Essential (primary) hypertension (ICD-10) Myocardial infarction ?I21.9 - Acute myocardial infarction, unspecified (ICD-10) Surgical History History of ankle surgery ?Z98.890 - Other specified postprocedural states (ICD-10) History of heart bypass surgery ?Z95.1 - Presence of aortocoronary bypass graft (ICD-10) Meds Home Medications and Allergies Home Medications ?Medication ?Instructions ?Recorded ?Confirmed ?Type aspirin 81 mg capsule 81 mg PO DAILY 10/31/23 07/09/24 History atorvastatin 80 mg tablet 80 mg PO DAILY 10/31/23 07/09/24 History ezetimibe 10 mg tablet 10 mg PO DAILY 10/31/23 07/09/24 History isosorbide mononitrate 120 mg 120 mg PO DAILY 10/31/23 07/09/24 History tablet,extended release 24 hr levothyroxine 75 mcg capsule 75 mcg PO DAILY 10/31/23 07/09/24 History lisinopril 20 mg tablet 20 mg PO BID 10/31/23 07/09/24 History metoprolol tartrate 100 mg tablet 125 mg PO BID 10/31/23 07/09/24 History (Lopressor) verapamil 80 mg tablet 80 mg PO TID 10/31/23 07/09/24 History gabapentin 300 mg capsule 900 mg (3 x 300 mg) PO BID #180 06/21/24 07/09/24 Rx caps Allergies Allergy/AdvReac Type Severity Reaction Status Date / Time adhesive Allergy Rash Verified 07/09/24 08:46 Exam Constitutional Documenting provider has reviewed patient's vital signs: yes Common normals: no apparent distress, oriented x3, healthy appearing, alert and well nourished General appearance: cooperative HENMT Common normals: normocephalic, hearing grossly normal bilaterally and moist oral mucous membranes Head and scalp: normocephalic Eye Common normals: PERRL Pupil: PERRL Neck & C-Spine Common normals: full ROM General: normal visual inspection Cervical spine: cervical ROM abnormal, pain with cervical ROM, cervical spine tenderness, paracervical muscle tenderness and other (positive spurlings ); no paracervical muscle spasm, no trapezius muscle tenderness and Lhermitte's sign negative Other: strength 4/5 in RUE 5/5 in LUE sensation intact BUE Chest Common normals: inspection of chest normal Respiratory Common normals: normal respiratory effort, no retractions and no use of accessory muscles Neuro Common normals: oriented x3 and CN's II-XII intact bilaterally Sensorium/orientation: alert Motor exam: no movement abnormalities noted and strength abnormal Psych Common normals: mental status grossly normal, thought process normal, cooperative, affect normal, speech normal and activity/motor behavior normal Speech: normal speech Thought process: normal thought process Results Additional Findings Additional findings: If on a controlled substance or opioids, I have checked an [place] report on this patient and there are no aberrancies noted in the prescribing history.??If on a controlled substance or opioid a drug screen was completed and reviewed within the last year, and if there has not been a drug screen completed we ordered one today to monitor higher risk, state monitored pain medication use. As part of providing excellent, safe, comprehensive care, the following was completed at our patient's visit: 1. A medication reconciliation and review to ensure accurate knowledge of current/active medications, including asking our patients to inform us about any [id number] medications or herbal remedies/nutritional supplements/alternative remedies. 2. A review to specifically ensure our patients have had annual screening for screening for depression, screening for tobacco use, and screening for unhealthy alcohol use. For concerning screenings had a discussion with the patient, provided patient education, and recommended follow-up with primary care provider when appropriate. If patient noted with a risk of falling, they received education on strength, gait, and balance training to prevent future risk of falling. Assessment and Plan Assessment and Plan (1) Cervical spondylosis: Assessment and Plan: CLYDE 22% with moderate to severe pain impacting adls, sleep, social life, travel The patient has had over 3 months of moderate to severe neck pain with functional impairment and inadequate response to conservative care including NSAIDS (unless there are contraindication such as concurrent blood thinners), multiple oral or topical pain medications, and home exercise program/physical therapy.? Patient has completed >6 weeks of guided home exercise program and/or formal physical therapy program without relief of their symptoms.? I have reviewed the imaging of the cervical spine and no red flags were identified.? The imaging reveals radiographic findings consistent with cervical stenosis, radiculopathy, spondylosis We discussed the risks and benefits of the procedure with the patient, and we are NOT planning on using sedation as outlined in the guidelines from Medicare unless there is a documented reason that sedation would be strongly recommended.?The procedure will be completed with fluoroscopic guidance.? (2) Cervical stenosis of spinal canal: (3) Cervical radiculopathy: Plan bilateral C4-5 C5-6 facet medial branch block x2 for axial facet mediated neck pain working towards RFA. pts radicular symptoms are moderately improvement from recent ALIYA increase gabapentin 900mg BID, risks vs benefits reviewed cleared by NS until symptoms and stenosis progress f/u after each MBB
== END 2024-07-18 14:22 | disposition home or self-care (01) ==
PROVIDERS: PCP Nurse Practitioner; Visit Provider Nurse Practitioner
DX: M47.812 Spondylosis without myelopathy or radiculopathy, cervical region (principal); M48.02 Spinal stenosis, cervical region; M54.12 Radiculopathy, cervical region
CPT/HCPCS: G0463

== ENCOUNTER 2024-09-07 09:36 | Outpatient (OUT) | payer OTHER, SELFPAY ==
--- OUTSIDE RECORDS SUMMARY | 2024-09-07 09:40 | XMS_ITS | Encounter Summary ---
Author Organization [facility] Address [address] [place] [address] Care Team Providers Care Senior Master Scheduler Name Role Phone Carmela Lester NP Unavailable [phone] Parviz Stewart MD Primary Care Provider Carmela Lester NP Unavailable [phone] Nai Chávez DO Unavailable [phone] Jessica Venegas NP Unavailable [phone] Encounter Details Date Type Department Care Team (Late st Contact Info) Description 09/05/2023 Clinisync Result Encounter [facility] External Department Unsolicited Carmela Lester NP [address] [place] [address] Social History Tobacco Use Types Packs/Day Years Used Date Smoking Tobacco: Every Day Cigarettes 1 15 Alcohol Use Standard Drinks/Week Comments Never 0 (1 standard drink = 0.6 oz pur e alcohol) PHQ-2 Answer Date Recorded Patient Health Questionnaire-2 Score 0 05/10/2023 Comments Unknown Sex and Gender Information Value Date Recorded Sex Assigned at Not on file Legal Sex Female 6:33 PM EDT Gender Identity Not on file Sexual Orientation Not on file documented as of this encounter Plan of Treatment Upcoming Encounters Date Type Department Care Team ([facility] Contact Info) Description 09/11/2024 2:20 PM EDT Office Visit [facility] [address] [place] [address] Carmela Lester NP [address] [place] [address] documented as of this encounter Procedures Procedure Name Priority Date/Time Associated Diagnosis Comments MR CERVICAL SPINE WO CONTRAST 09/05/2023 6:52 AM EDT documented in this encounter Results * MR cervical spine wo contrast (09/05/2023 6:52 AM EDT) Anatomical Region Laterality Modality Spine, C-spine Magnetic Resonan ce 09/05/2023 6:52 AM EDT Narrative 09/05/2023 6:54 [place] [address] Magnetic Resonance Report Signed Patient: DIANE CANAS MR#: [id number] : 1970 Acct:[id number] Age/Sex: 53 / F ADM Date: 09/02/23 Loc: MRI Attending Dr: Carmela Lester NP Ordering Physician: Carmela Lester NP Date of Service: 09/02/23 Procedure(s): MR cervical spine wo con Accession Number(s): [id number] cc: Carmela Lester NP [address] [place] [id number] Patient Name: DIANE CANAS MRN: [id number] date: 1970 Sex: F Assigned Patient Location: MRI Current Patient Location: Accession/Order Number: [id number] Exam Date: 09/02/2023 14:05 Report Date: 09/05/2023 06:52 At the request of: CARMELA LESTER Procedure: MR cervical spine wo con MR cervical spine wo con, 09/02/2023 2:05 PM EDT INDICATION: Cervical neck pain with evidence of disc disease COMPARISON: There is no appropriate prior study for comparison. TECHNIQUE: Multiplanar, multisequential MRI images of cervical spine were obtained without contrast. FINDINGS: There is loss of normal physiologic cervical lordosis. The vertebral heights are relatively preserved. The cervicomedullary junction is unremarkable. There is grade 1 anterolisthesis of C3 on C4 and mild retrolisthesis of C5 on C6. No definite signal abnormality within the spinal cord is noted. There are mild disc osteophyte complex associated with uncovertebral joint arthrosis from C3 to T1. No significant neuroforaminal narrowing or canal stenosis at the level of C2-C3 is noted. At the level of C3-C4, there is grade 1 anterolisthesis with severe right and mild left neuroforaminal narrowing and moderate canal stenosis. At the level of C4-C5, there is mild right and moderate left neuroforaminal narrowing and no canal stenosis. At the level of C5-C6, there is moderate bilateral neuroforaminal narrowing and mild canal stenosis. At the level of C6-C7, there is mild right neuroforaminal narrowing and no canal stenosis. Level of C7-T1, there is mild right neuroforaminal narrowing. No canal stenosis. No definite muscular or ligamentous injury is noted. MR/MR cervical spine wo con IMPRESSION: Mild to moderate degenerative changes of the cervical spine in particular at C3-C4 and C5-C6. Electronically authenticated by: SOHAIL RENDON Date: 09/05/2023 06:52 Dictated By: Sohail Rendon M.D. Signed By: 09/05/2354 DD/ TD/TT: Mirror Painter: Procedure Note Radiology, Radiologist, MD - 09/05/2023 [place] [address] Magnetic Resonance Report Signed Patient: DIANE CANAS RMR#: [id number] : 1970Acct:[id number] Age/Sex: 53 / FADM Date: 09/02/23 Loc: MRI Attending Dr: Carmela Lester NP Ordering Physician: Carmela Lester NP Date of Service: 09/02/23 Procedure(s): MR cervical spine wo con Accession Number(s): [id number] cc: Carmela Lester NP [facility] [place] [id number] Patient Name: DIANE CANAS MRN: [facility]:[id number] date: 1970 Sex: F Assigned Patient Location: MRI Current Patient Location: Accession/Order Number: [id number] Exam Date: 09/02/2023 14:05 Report Date: 09/05/2023 06:52 At the request of: CARMELA LESTER Procedure: MR cervical spine wo con MR cervical spine wo con, 09/02/2023 2:05 PM EDT INDICATION: Cervical neck pain with evidence of disc disease COMPARISON: There is no appropriate prior study for comparison. TECHNIQUE: Multiplanar, multisequential MRI images of cervical spine were obtained without contrast. FINDINGS: There is loss of normal physiologic cervical lordosis. The vertebralheights are relatively preserved. The cervicomedullary junction is unremarkable. There is grade 1 anterolisthesis of C3 on C4 and mild retrolisthesis of C5 on C6. No definite signal abnormality within the spinal cord is noted. There are mild disc osteophyte complex associated with uncovertebral joint arthrosis from C3 to T1. No significant neuroforaminal narrowing or canal stenosis at the level of C2-C3 is noted. At the level of C3-C4, there is grade 1 anterolisthesis with severe rightand mild left neuroforaminal narrowing and moderate canal stenosis. At the level of C4-C5, there is mild right and moderate leftneuroforaminal narrowing and no canal stenosis. At the level of C5-C6, there is moderate bilateral neuroforaminalnarrowing and mild canal stenosis. At the level of C6-C7, there is mild right neuroforaminal narrowing and no canal stenosis. Level of C7-T1, there is mild right neuroforaminal narrowing. No canal stenosis. No definite muscular or ligamentous injury is noted. MR/MR cervical spine wo con IMPRESSION: Mild to moderate degenerative changes of the cervical spine in particularat C3-C4 and C5-C6. Electronically authenticated by: SOHAIL RENDON Date: 09/05/2023 06:52 Dictated By: Sohail Rendon M.D. Signed By:09/05/23 0654 DD/ 0652 TD/TT: Mirror Painter: Carmela Lester [facility] MRI PROCEDURES Final Result documented in this encounter Visit Diagnoses Not on filedocumented in this encounter Care Teams Senior Master Scheduler Relationship Specialty Start Date End Date Parviz Stewart MD [address] [place] [phone] PCP - General Family Medicine 05/10/23 Carmela Lester NP [address] [place] [address] Referring Physician Nurse Practitioner 10/04/22 Carmela Lester NP [address] [place] [address] Nurse Practitioner Family Medicine 05/10/23 Nai Chávez DO [address] [place] [address] Referring Physician Neurology 03/27/24 Jessica Venegas NP [address] [place] [address] Nurse Practitioner Neurology 03/27/24 documented as of this encounter
--- OUTSIDE RECORDS SUMMARY | 2024-09-07 09:40 | XMS_ITS | Clinical Summary ---
Author Organization [facility] Address [address] [place] [address] Care Team Providers Care Field Operations Technician Name Role Phone Unavailable Primary Care Provider Unavailabl e Social History Tobacco Use Types Packs/Day Years Used Date Smoking Tobacco: Never Assessed Comments Unknown Sex and Gender Information Value Date Recorded Sex Assigned at Not on file Legal Sex Female 8:47 PM EST Gender Identity Not on file Sexual Orientation Not on file Plan of Treatment Not on file
--- OUTSIDE RECORDS SUMMARY | 2024-09-07 09:40 | XMS_ITS | Clinical Summary ---
Author Organization [facility] Address [id number] [address] [place] [address] Care Team Providers Care Nuclear Design Engineer Name Role Phone Osieljaneinocencio Carmela Karlene HOME CARE COMPANION-FAMILY NURSE PRACTITIONER Primary Care Provider Social History Tobacco Use Types Packs/Day Years Used Date Smoking Tobacco: Never Assessed Childcare Answer Date Recorded Childcare Unknown 08/21/2018 Employment Answer Date Recorded Employment Unknown 08/21/2018 Comments Unknown Sex and Gender Information Value Date Recorded Sex Assigned at Not on file Legal Sex Female 11:59 AM EDT Gender Identity Not on file Sexual Orientation Not on file Plan of Treatment Health Maintenance Due Date Last Done Comments Depression Screening 1983 Tobacco Screening 1983 Adult BMI Screening 1989 DTaP,Tdap and Td Vaccines (1 - Tdap) 1990 Pap Smear 02/28/1992 Zoster (Shingles) Vaccine (1 of 2) 2021 Influenza Vaccine 11/12/2024 12/11/2019, , 12/23/2017 Medical Devices Not on file Insurance [employer] Member Subscriber Plan / Payer (Ef fective 2018-Present) Name:Diane Mendoza Relation to Subscriber:Spouse Name:JOSE MARIA MENDOZA Date of :1960 Address: [place] [address] Payer ID:Not on file Type:Not on file Address: [facility] [address] [place] [id number] Care Teams Nuclear Design Engineer Relationship Specialty Start Date End Date Carmela Lester, HOME CARE COMPANION-FAMILY NURSE PRACTITIONER PCP - General Nurse Practitioner 10/21/20
--- OUTSIDE RECORDS SUMMARY | 2024-09-07 09:40 | XMS_ITS | Encounter Summary ---
Author Organization [facility] Address [address] [place] [address] Care Team Providers Care Sequencing Machine Operator Name Role Phone Parviz Stewart MD Primary Care Provider Carmela Lester NP Unavailable [phone] Parviz Stewart MD Primary Care Provider [phone] Carmela Lester NP Unavailable [phone] Nai Chávez DO Unavailable [phone] Jessica Venegas SALON PROFESSIONAL Unavailable [phone] Encounter Details Date Type Department Care Team (Late Contact Info) Description 03/05/2023 Abstract [facility] [address] [place] [address] Carmela Lester NP [address] [place] [address] Social History Tobacco Use Types Packs/Day Years Used Date Smoking Tobacco: Every Day Cigarettes 1 15 Comments Unknown Sex and Gender Information Value Date Recorded Sex Assigned at Not on file Legal Sex Female 6:33 PM EDT Gender Identity Not on file Sexual Orientation Not on file documented as of this encounter Plan of Treatment Upcoming Encounters Date Type Department Care Team (Late Contact Info) Description 09/11/2024 2:20 PM EDT Office Visit [facility] [address] [place] [address] Carmela Lester NP [address] [place] [address] documented as of this encounter Visit Diagnoses Not on filedocumented in this encounter Care Teams Sequencing Machine Operator Relationship Specialty Start Date End Date Parviz Stewart MD PCP - General Family Medicine 10/04/22 05/09/23 Parviz Stewart MD [address] [place] [phone] PCP - General Family Medicine 05/10/23 Carmela Lester NP [address] [place] [address] Referring Physician Nurse Practitioner 10/04/22 Carmela Lester NP [address] [place] [phone] Nurse Practitioner Family Medicine 05/10/23 Nai Chávez DO [address] [place] [address] Referring Physician Neurology 03/27/24 Jessica Venegas NP [address] [place] [address] Nurse Practitioner Neurology 03/27/24 documented as of this encounter
--- OUTSIDE RECORDS SUMMARY | 2024-09-07 09:40 | XMS_ITS | Clinical Summary ---
Author Organization [facility] Healthcare Address [address] [place] [address] Care Team Providers Care Kiln Firer Name Role Phone Carmela Lester NP Unavailable [phone] Parviz Stewart MD Primary Care Provider [phone] Carmela Lester NP Unavailable [phone] Nai Chávez DO Unavailable [phone] Jessica Venegas NP Unavailable [phone] Allergies Active Allergy Reactions Criticality Noted Date Comments Wound Dressing Adhesive Hives 03/01/2014 Medications tiZANidine (Zanaflex) 4 MG tabletIndicatio ns:Trapezius muscle spasm Take 1 tablet (4 mg) by mouth as needed at bedtime for muscle spasms for up to 15 days May cut pill in half and take 1/2 pill at bedtime 15 tablet 1 08/10/19 24 Active gabapentin (Neurontin) 300 MG capsuleIndicati ons:Neuropathy Take 1 capsule (300 mg) by mouth in the morning and 1 capsule (300 mg) in the evening and 1 capsule (300 mg) before bedtime. Take 300 mg by mouth in the morning and 300 mg in the evening and 300 mg before bedtime.. 270 capsule 1 11/22/19 24 Active Additional Information Patient taking differently: 900 mgOral2 times daily, (No instructions reported), Reported on 03/26/2024 verapamil (Calan) 80 MG tabletIndicatio ns:Essential hypertension,Pr imary hypertension Take 1 tablet (80 mg) by mouth in the morning and 1 tablet (80 mg) in the evening and 1 tablet (80 mg) before bedtime. 270 tablet 1 11/22/19 24 Active nitroglycerin (Nitrostat) 0.4 MG SL tabletIndicatio ns:Coronary artery disease involving creek coronary artery of creek heart without angina pectoris Place 1 tablet (0.4 mg) under the tongue every 5 (five) minutes if needed for chest pain If after 3 doses still chest pain, go to ER/call 911 25 tablet 11/25/19 24 Active atorvastatin (Lipitor) 80 MG tabletIndicatio ns:Coronary artery disease involving creek coronary artery of creek heart without angina pectoris Take 1 tablet (80 mg) by mouth at bedtime Take pill in the evening time not morning 90 tablet 05/22/19 25 Active metoprolol tartrate (Lopressor) 100 MG tabletIndicatio ns:Essential hypertension,Pr imary hypertension Take 1 tablet (100 mg) by mouth in the morning and 1 tablet (100 mg) before bedtime. 180 tablet 08/21/19 25 2024 Active isosorbide mononitrate ER (Imdur) 120 MG 24 hr tabletIndicatio ns:Essential hypertension,Co ronary artery disease involving creek coronary artery of creek heart without angina pectoris Take 1 tablet (120 mg) by mouth Daily Do not crush or chew. Take 120 mg by mouth in the morning. Do not crush or chew. . 90 tablet 08/21/19 25 2024 Active ezetimibe (Zetia) 10 MG tabletIndicatio ns:Coronary artery disease involving creek coronary artery of creek heart without angina pectoris Take 1 tablet (10 mg) by mouth Daily 90 tablet 08/21/19 25 2024 Active lisinopril 20 MG tabletIndicatio ns:Essential hypertension,Pr imary hypertension Take 1 tablet (20 mg) by mouth in the morning and 1 tablet (20 mg) before bedtime. 180 tablet 08/21/19 25 2024 Active metoprolol tartrate (Lopressor) 25 MG tabletIndicatio ns:Essential hypertension Take 1 tablet (25 mg) by mouth in the morning and 1 tablet (25 mg) before bedtime. 180 tablet 08/21/19 25 2024 Active levothyroxine (Synthroid, Levoxyl) 75 MCG tabletIndicatio ns:Hypothyroidi sm (acquired) Take 1 tablet (75 mcg) by mouth in the morning. Take before meals. 90 tablet 08/21/19 25 2024 Active ezetimibe (Zetia) 10 MG tabletIndicatio ns:Coronary artery disease involving creek coronary artery of creek heart without angina pectoris Take 1 tablet (10 mg) by mouth Daily 90 tablet 1 02/29/20 24 2024 Discontinued isosorbide mononitrate ER (Imdur) 120 MG 24 hr tabletIndicatio ns:Coronary artery disease involving creek coronary artery of creek heart without angina pectoris,Essent ial hypertension Take 1 tablet (120 mg) by mouth Daily Do not crush or chew. Take 120 mg by mouth in the morning. Do not crush or chew. . 90 tablet 05/22/19 25 2024 Discontinued lisinopril 20 MG tabletIndicatio ns:Essential hypertension,Pr imary hypertension Take 1 tablet (20 mg) by mouth in the morning and 1 tablet (20 mg) before bedtime. 180 tablet 05/22/19 25 2024 Discontinued metoprolol tartrate (Lopressor) 100 MG tabletIndicatio ns:Essential hypertension,Pr imary hypertension Take 1 tablet (100 mg) by mouth in the morning and 1 tablet (100 mg) before bedtime. 180 tablet 05/22/19 25 2024 Discontinued levothyroxine (Synthroid, Levoxyl) 75 MCG tabletIndicatio ns:Hypothyroidi sm (acquired) Take 1 tablet (75 mcg) by mouth in the morning. Take before meals. 90 tablet 05/22/19 25 2024 Discontinued metoprolol tartrate (Lopressor) 25 MG tabletIndicatio ns:Essential hypertension Take 1 tablet (25 mg) by mouth in the morning and 1 tablet (25 mg) before bedtime. 180 tablet 05/22/19 25 2024 Discontinued Active Problems Problem Noted Date Diagnosed Date Paresthesia 09/26/2023 Sensory neuropathy 09/26/2023 Lumbosacral radiculopathy 09/26/2023 ERICK (obstructive sleep apnea) 09/26/2023 Daytime somnolence 09/26/2023 Cervical stenosis of spinal canal 09/07/2023 Assessment & Plan (09/07/2023 8:50 PM EDT): Reviewed MRI cervical spine Will refer to neurosurgeon dr helen Sales in 8 weeks Cervical radiculopathy 09/07/2023 Assessment & Plan (09/07/2023 8:50 PM EDT): Reviewed MRI Refer neurosurgeon Check EMG right UE Cervical neck pain with evidence of disc disease 07/11/2023 Assessment & Plan (07/11/2023 5:14 PM EDT): Suspect disc pathology right UE PT agrees with need for MRI Will order MRI Fu in 4 weeks to review the results Neuropathy 05/10/2023 Lumbosacral radiculopathy at S1 05/10/2023 Loud snoring 05/10/2023 Peripheral artery disease 05/10/2023 Myocardial infarction 05/10/2023 Prinzmetal angina 05/10/2023 CAD (coronary artery disease) 05/10/2023 Abnormal ankle brachial index (LYSSA) 05/10/2023 GERD (gastroesophageal reflux disease) Menorrhagia 05/10/2023 Asymptomatic microscopic hematuria 05/10/2023 Bilateral hand pain 05/10/2023 Vitamin D deficiency 05/10/2023 Vitamin B12 deficiency 05/10/2023 Tobacco user 05/10/2023 Assessment & Plan (07/11/2023 4:03 PM EDT): The patient has been advised of the risks of continued smoking: stroke, NM, all forms of cancer, lung disease, and . Options for quitting smoking include: cold turkey, hypnosis, acupuncture, nicotine replacement meds (gum, lozenges, and patches), Buproprion, and Varenicline. At this time pt is encouraged to evaluate their goals for wanting to quit smoking, and reach out to provider when ready to start this process Seasonal allergies 05/10/2023 Back pain, chronic 05/10/2023 Trapezius muscle spasm 05/10/2023 Assessment & Plan (07/11/2023 4:03 PM EDT): Still with continued symptoms Therapy helps some Therapist is recommending an MRI c spine Assessment & Plan (05/30/2023 3:43 PM EDT): Doing well on tizanidine, will give refill Will refer to [facility] in 6 weeks Assessment & Plan (05/10/2023 2:13 PM EST): Ice to affected area, 4 times daily, stretching exercises given Add tizanidine at HS Fu in 2 weeks Gout 05/09/2023 Hypothyroidism (acquired) 02/07/2023 Assessment & Plan (02/07/2023 3:29 PM EST): C/o weight gain, fatigue Will check labs Cont current supplement at this time Idiopathic gout 02/07/2023 Assessment & Plan (02/07/2023 3:30 PM EST): Check labs Angina pectoris 06/29/2011 Hypertension 06/29/2011 Assessment & Plan (05/30/2023 3:40 PM EDT): Back on lisinopril BID, better blood pressure control with metoprolol at 125mg BID I have reviewed her ECHO report with her, I am going to refer her back to cardiology w her hx of CAD [facility], would like to see Dr Lombardo Assessment & Plan (05/10/2023 2:12 PM EST): Out of lisinopril, was only taking half the dose Meds are refilled, pt will start back on normal dose To stop by office in 2 days for blood pressure check Assessment & Plan (02/07/2023 3:29 PM EST): Stable, cont current meds Check labs Fu in 3 months Coronary atherosclerosis 02/25/2011 Assessment & Plan (02/07/2023 3:29 PM EST): Stable no chest pain Check labs, recommend quit tobacco Hyperlipidemia 02/25/2011 Overview (02/08/2023): Needs refill of zetia Resolved Problems Problem Noted Date Diagnosed Date Resolved Date Closed traumatic minimally d isplaced fracture of proximal end of fibula with routine healing 05/10/2023 05/10/2023 Neck muscle spasm 05/10/2023 05/10/2023 Bronchitis 02/07/2023 05/10/2023 Assessment & Plan (02/07/2023 3:30 PM EST): Z pack and albuterol inhaler Fu if not better Fluids and rest Encounters Date Type Department Care Team Description 08/20/2024 Telephone [facility] [address] [place] [phone] Carmela Lester NP 08/20/2024 Refill [facility] [address] [place] [phone] Carmela Lester NP Essential hypertension ; Primary hypertension ; Coronary artery disease involving creek coronary artery of creek heart without angina pectoris ; Hypothyroidism (acquired) from Last 3 Months Immunizations Immunization Administration Dates Next Due Influenza, injectable, quadr ivalent, preservative free 11/04/2022,01/01/2022,01/03/2021,12/10,11/03/2018,12/23/2017 Pneumococcal Conjugate PCV 20 11/04/2022 Pneumococcal Polysaccharide PPSV23 11/03/2018 Family History Medical History Relation Name Comments Heart disease Father Hypertension Father Hypertension Mother Relation Name Status Comments Father Mother Social History Tobacco Use Types Packs/Day Years Used Date Smoking Tobacco: Former Cigarettes 1 15 Smokeless Tobacco: Never Alcohol Use Standard Drinks/Week Comments Never 0 (1 standard drink = 0.6 oz pur e alcohol) PHQ-2 Answer Date Recorded Patient Health Questionnaire-2 Score 0 05/10/2023 Comments Unknown Sex and Gender Information Value Date Recorded Sex Assigned at Not on file Legal Sex Female 6:33 PM EDT Gender Identity Not on file Sexual Orientation Not on file Last Filed Vital Signs Vital Sign Reading Time Taken Comments Blood Pressure 136/88 03/26/2024 3:21 PM EST Pulse 78 03/26/2024 3:21 PM EST Temperature 37.1 C (98.8 F) 09/07/2023 4:09 PM EDT Respiratory Rate 19 09/07/2023 4:09 PM EDT Oxygen Saturation 98% 03/26/2024 3:21 PM EST Inhaled Oxygen Concentration - - Weight 72.2 kg (159 lb 3.2 oz) 03/26/2024 3:21 P M EST Height 162.6 cm (5' 4 ) 03/26/2024 3:21 PM EST Body Mass Index 27.33 03/26/2024 3:21 PM EST Plan of Treatment Upcoming Encounters Date Type Department Care Team (Late st Contact Info) Description 09/11/2024 2:20 PM EDT Office Visit [facility] [address] [place] [address] Carmela Lester, EMMANUEL [address] [place] [address] Health Maintenance Due Date Last Done Comments CT Colonography 1971 Colonoscopy 1971 FIT 1971 FOBT 1971 Sigmoidoscopy 1971 Pap Smear 02/28/1992 HPV/Cotest 2001 Influenza Vaccine (Season Ended) 2024 11/04/2022, 01/01/2022, 01/03/2021, Additional history exists Colorectal Cancer Screening 02/25/2026 FIT-DNA 02/25/2026 02/25/2023 Cervical Cancer Screening Discontinued Mammogram Discontinued Procedures Procedure Name Priority Date/Time Associated Diagnosis Comments LAB COLOGUARD COLON CANCER SCREEN Routine 02/25/2023 7:15 AM EST Colon cancer screening from Last 3 Months or Most Recently Relevant to Health Maintenance Results * Cologuard?? colon cancer screening (02/25/2023 7:15 AM EST) NONINV COLON CA DNA+OCC BLD SCRN STL-IMP Negative Negative 03/04/2023 5:59 AM EST fflap (CLIA #:[id number]) Comment: NEGATIVE TEST RESULT. A negative Cologuard result indicates a low likelihood that a colorectal cancer (CRC) or advanced adenoma (adenomatous polyps with more advanced pre-malignant features) is present. The chance that a person with a negative Cologuard test has a colorectal cancer is less than 1 in 1500 (negative predictive value >99.9%) or has an advanced adenoma is less than 5.3% (negative predictive value 94.7%). These data are based on a prospective cross-sectional study of 10,000 individuals at average risk for colorectal cancer who were screened with both Cologuard and colonoscopy. (Pushpa Rashid al, N Engl J Med 2014;370(14):1124-8441) The normal value (reference range) for this assay is negative. COLOGUARD RE-SCREENING RECOMMENDATION: Periodic colorectal cancer screening is an important part of preventive healthcare for asymptomatic individuals at average risk for colorectal cancer. Following a negative Cologuard result, the [employer] and U.S. Multi-Society Task Force screening guidelines recommend a Cologuard re-screening interval of 3 years. References: [employer] Guideline for Colorectal Cancer Screening: https://www.cancer.org/cancer/ddwvi-xecekb-qpqara/tnppummmq-pjuxxpmwr-abiifvi/ac s-rec ommendations.html.; Helder DK, Akhil CR, Rikki SolerK, Colorectal Cancer Screening: Recommendations for Physicians and Patients from the U.S. Multi-Society Task Force on Colorectal Cancer Screening , Am J Gastroenterology 2017; 112:3647-1416. TEST DESCRIPTION: Composite algorithmic analysis of stool DNA-biomarkers with hemoglobin immunoassay. Quantitative values of individual biomarkers are not reportable and are not associated with individual biomarker result reference ranges. Cologuard is intended for colorectal cancer screening of adults of either sex, 45 years or older, who are at average-risk for colorectal cancer (CRC). Cologuard has been approved for use by the U.S. FDA. The performance of Cologuard was established in a cross sectional study of average-risk adults aged 50-84. Cologuard performance in patients ages 45 to 49 years was estimated by sub-group analysis of near-age groups. Colonoscopies performed for a positive result may find as the most clinically significant lesion: colorectal cancer [4.0%], advanced adenoma (including sessile serrated polyps greater than or equal to 1cm diameter) [20%] or non- advanced adenoma [31%]; or no colorectal neoplasia [45%]. These estimates are derived from a prospective cross-sectional screening study of 10,000 individuals at average risk for colorectal cancer who were screened with both Cologuard and colonoscopy. (Pushpa Antonio, N Engl J Med 2014;370(14):0453-6681.) Cologuard may produce a false negative or false positive result (no colorectal cancer or precancerous polyp present at colonoscopy follow up). A negative Cologuard test result does not guarantee the absence of CRC or advanced adenoma (pre-cancer). The current Cologuard screening interval is every 3 years. ([employer] and U.S. Multi-Society Task Force). Cologuard performance data in a 10,000 patient pivotal study using colonoscopy as the reference method can be accessed at the following location: www.[employer]results. Additional description of the Cologuard test process, warnings and precautions can be found at [email or web address].[email or web address]. Stool specimen (specimen) 02/25/2023 7:15 AM EST 02/26/2023 11:03 AM EST Carmela Lester NP LAB MOLECULAR DIAGNOSTICS ORDER FANY Final Result .XAGOOD (CLIA #:[id number]) [address] [id number], fflap (CLIA #:[id number]) [address] [id number] from Last 3 Months or Most Recently Relevant to Health Maintenance Insurance [employer] Care Teams Kiln Firer Relationship Specialty Start Date End Date Parviz Stewart MD [address] [place] [phone] PCP - General Family Medicine 05/10/23 Carmela Lester NP [address] [place] [phone] Referring Physician Nurse Practitioner 10/04/22 Carmela Lester NP [address] [place] [address] Nurse Practitioner Family Medicine 05/10/23 Nai Chávez DO [address] [place] [id number] Referring Physician Neurology 03/27/24 Jessica Venegas NP [address] [place] [address] Nurse Practitioner Neurology 03/27/24
--- OUTSIDE RECORDS SUMMARY | 2024-09-07 09:40 | XMS_ITS | Encounter Summary ---
Author Organization [facility] Address [address] [place] [address] Care Team Providers Care Supervisor Glycerin Name Role Phone Carmela Lester NP Unavailable [phone] Parviz Stewart MD Primary Care Provider Carmela Lester GAS CHARGER Unavailable [phone] Nai Chávez DO Unavailable [phone] Jessica Venegas GAS CHARGER Unavailable [phone] Reason for Visit * Reason Comments Med Change Request Encounter Details Date Type Department Care Team (Late Contact Info) Description 11/22/2023 Refill [facility] [address] [place] [address] Carmela Lester NP [address] [place] [phone] Coronary artery disease involving pilot station coronary artery of pilot station heart without angina pectoris Social History Tobacco Use Types Packs/Day Years [...] 09/11/2024 2:20 PM EDT Office Visit [facility] [address] [place] [phone] Carmela Lester NP [address] [place] [phone] documented as of this encounter Visit Diagnoses Diagnosis Coronary artery disease involving pilot station coronary artery of pilot station heart without angina pectoris documented in this encounter Care Teams Supervisor Glycerin Relationship Specialty Start Date End Date Parviz Stewart MD [address] [place] [phone] PCP - General Family Medicine 05/10/23 Carmela Lester NP [address] [place] [phone] Referring Physician Nurse Practitioner 10/04/22 Carmela Lester NP [address] [place] [phone] Nurse Practitioner Family Medicine 05/10/23 Nai Chávez DO [address] [place] [address] Referring Physician Neurology 03/27/24 Jessica Venegas NP [address] [place] [address] Nurse Practitioner Neurology 03/27/24 documented as of this encounter
--- OUTSIDE RECORDS SUMMARY | 2024-09-07 09:40 | XMS_ITS | Encounter Summary ---
Author Organization [facility] Address [address] [place] [address] Care Team Providers Care Pharmacy Intake Coordinator Name Role Phone Carmela Lester NP Unavailable [phone] Parviz Stewart MD Primary Care Provider Carmela Lester NP Unavailable [phone] Nai Chávez DO Unavailable [phone] Jessica Venegas NP Unavailable Encounter Details Date Type Department Care Team (Late st Contact Info) Description 05/27/2023 Clinisync Result Encounter [facility] External Department Unsolicited Carmela Lester NP [address] [place] [place] [address] Social History Tobacco Use Types Packs/Day Years [...] on file documented as of this encounter Functional Status * Over the past 2 weeks, how often have you been bothered by any of the following problems? Question Answer Date of Assessment Author Little interest or pleasure in doing things Not at all 05/30/2023 3:08 PM EDT LAITH SALEH Feeling down, depressed, or hopeless Not at all 05/30/2023 3:08 PM EDT LAITH SALEH Patient Health Questionnaire -2 Score 0 05/30/2023 3:08 PM EDT LAITH SALEH documented as of this encounter Plan of Treatment Upcoming Encounters Date Type Department Care Team (Late st Contact Info) Description 09/11/2024 2:20 PM EDT Office Visit [facility] [address] [place] [address] Carmela Lester NP [address] [place] [address] documented as of this encounter Procedures Procedure Name Priority Date/Time Associated Diagnosis Comments CA ECHO DOPPLER COMPLETE 05/27/2023 2:43 PM EDT documented in this encounter Results * CA ECHO DOPPLER COMPLETE (05/27/2023 2:43 PM EDT) Anatomical Region Laterality Modality Other 05/27/2023 2:43 PM EDT Narrative 05/27/2023 2:44 [place] [address] Cardiology Report Signed Patient: DIANE CANAS MR#: [id number] : 1970 Acct:[id number] Age/Sex: 53 / F ADM Date: 05/26/23 Loc: CARD Attending Dr: Carmela Lester NP Ordering Physician: Carmela Lester NP Date of Service: 05/26/23 Procedure(s): CA echo doppler complete Accession Number(s): [id number] cc: Carmela Lester NP Patient Name: DIANE CANAS MR#: [id number] : 1970 Exam Date: 05/26/2023 Ordering Doctor: DEREK Lester CNP ECHOCARDIOGRAM REPORT PROCEDURE: CA ECHO DOPPLER COMPLETE INDICATIONS: Uncontrolled hypertension, CABGx1, RI x 2, former smoker COMPARISON: None. DESCRIPTION: COMPLETE ECHOCARDIOGRAM Real-time transthoracic echocardiography with 2D, M-mode, spectral and color flow Doppler performed. QUALITY: 64 , 153#, BSA 1.75 m2, BP 172/90 Technically difficult due to poor acoustics. LEFT VENTRICLE: Normal chamber size. Normal left ventricular wall thickness. LV EF: Global left ventricular systolic function is normal; visually estimated ejection fraction is 60 to 65%. Unable to assess regional wall motion abnormalities; consider contrast study for better delineation of endocardial borders. DIASTOLIC: Normal diastolic function. ATRIAL SEPTUM: Visually appears intact. LEFT ATRIUM: Normal chamber size. RIGHT ATRIUM: Normal chamber size. RIGHT VENTRICLE: Poorly seen. Normal chamber size. Right ventricular systolic function appears reduced. TRICUSPID VALVE: Normal mobility and thickness. No stenosis with trivial regurgitation. MITRAL VALVE: Normal mobility and thickness. No evidence of mitral valve stenosis. There is no mitral annular calcification. No mitral regurgitation. AORTIC VALVE: Normal trileaflet appearance. No visible sclerosis. Normal leaflet mobility. No evidence of aortic valve stenosis. No aortic regurgitation. AORTIC ROOT: Normal diameter and appearance. PULMONIC VALVE: Normal thickness and mobility. No stenosis. No regurgitation. PERICARDIUM: No evidence of pericardial effusion. IVC: Collapses with inspirations. CONCLUSION: 1. Global left ventricular systolic function is normal; visually estimated ejection fraction is 60 to 65% 2. The right ventricle is poorly seen; it appears normal in size with reduced systolic function 3. Normal diastolic function 4. Valves are poorly seen; no significant valvular abnormalities Adult Echocardiography Procedure Report Left Ventricle LVEDD (3.7 - 5.6 cm): 4.37 cm LVESD (2.2 - 4.0 cm): 2.88 cm LVIVS thickness (0.6 - 1.2 cm): 0.96 cm LVPW thickness (0.5 - 1.0 cm): 1.01 cm e': 0.10 m/s E - e': 3.62 LVOT Max Gradient: 2.82 mm[Hg] LVOT Area (cm2): 0.84 m/s Peak Velocity (LVOT): 0.84 m/s Mean Velocity (LVOT): 0.51 m/s LVOT Diameter 1.97 cm Left Atrium LA Volume Index (2D A2C): 24.45 ml/m2 Left Atrium Systolic Dimension: 3.50 cm Mitral Valve MV E to A Ratio: 0.76 Mitral Valve A-Wave Peak Velocity: 0.47 m/s Mitral Valve E-Wave Peak Velocity: 0.36 m/s Right Ventricle Aorta AO Root Diam: 3.06 cm Aortic Valve AoV Area (Peak Te): 2.73 cm2, 2.73 cm2 AoV Area (VTI): 2.56 cm2, 2.56 cm2 Peak Velocity(Antegrade Flow): 0.94 m/s Peak Gradient(Antegrade Flow): 3.53 mm[Hg] Mean Velocity(Antegrade Flow): 0.67 m/s Mean Gradient(Antegrade Flow): 1.98 mm[Hg] Velocity Time Integral: 19.76 cm Tricuspid Valve Pulmonic Valve Peak Velocity: 0.74 m/s Peak Gradient: 2.40 mm[Hg], 2.02 mm[Hg] Right Atrium Dictated by: Nino Zapata M.D. on 05/27/2023 at 14:39 Approved by: Nino Zapata M.D. on 05/27/2023 at 14:43 Dictated By: Nino Zapata M.D. Signed By: 05/27/23 1444 DD/ 42 TD/TT: Coke Burner: Procedure Note Radiology, Radiologist, MD - 05/27/2023 [place] [address] Cardiology Report Signed Patient: DIANE CANAS RMR#: [id number] : 1970Acct:[id number] Age/Sex: 53 / FADM Date: 05/26/23 Loc: CARD Attending Dr: Carmela Lester NP Ordering Physician: Carmela Lester NP Date of Service: 05/26/23 Procedure(s): CA echo doppler complete Accession Number(s): [id number] cc: Carmela Lester NP Patient Name: DIANE CANAS MR#: [id number] : 1970 Exam Date: 05/26/2023 Ordering Doctor: DEREK Lester CNP ECHOCARDIOGRAM REPORT PROCEDURE: CA ECHO DOPPLER COMPLETE INDICATIONS: Uncontrolled hypertension, CABGx1, RI x 2, former smoker COMPARISON: None. DESCRIPTION: COMPLETE ECHOCARDIOGRAM Real-time transthoracic echocardiography with 2D, M-mode, spectral and color flow Dopplerperformed. QUALITY: 64 , 153#, BSA 1.75 m2, BP 172/90 Technically difficult dueto poor acoustics. LEFT VENTRICLE: Normal chamber size. Normal left ventricular wall thickness. LV EF: Global left ventricular systolic function is normal; visually estimated ejection fraction is 60 to 65%. Unable to assess regional wall motion abnormalities; consider contrast study for better delineation of endocardial borders. DIASTOLIC: Normal diastolic function. ATRIAL SEPTUM: Visually appears intact. LEFT ATRIUM: Normal chamber size. RIGHT ATRIUM: Normal chamber size. RIGHT VENTRICLE: Poorly seen. Normal chamber size. Right ventricular systolic function appears reduced. TRICUSPID VALVE: Normal mobility and thickness. No stenosis withtrivial regurgitation. MITRAL VALVE: Normal mobility and thickness. No evidence of mitralvalve stenosis. There is no mitral annular calcification. No mitralregurgitation. AORTIC VALVE: Normal trileaflet appearance. No visible sclerosis.Normal leaflet mobility. No evidence of aortic valve stenosis. No aortic regurgitation. AORTIC ROOT: Normal diameter and appearance. PULMONIC VALVE: Normal thickness and mobility. No stenosis. No regurgitation. PERICARDIUM: No evidence of pericardial effusion. IVC: Collapses with inspirations. CONCLUSION: 1. Global left ventricular systolic function is normal; visually estimated ejection fraction is 60 to 65% 2. The right ventricle is poorly seen; it appears normal in size withreduced systolic function 3. Normal diastolic function 4. Valves are poorly seen; no significant valvular abnormalities Adult Echocardiography Procedure Report Left Ventricle LVEDD (3.7 - 5.6 cm): 4.37 cm LVESD (2.2 - 4.0 cm): 2.88 cm LVIVS thickness (0.6 - 1.2 cm): 0.96 cm LVPW thickness (0.5 - 1.0 cm): 1.01 cm e': 0.10 m/s E - e': 3.62 LVOT Max Gradient: 2.82 mm[Hg] LVOT Area (cm2): 0.84 m/s Peak Velocity (LVOT): 0.84 m/s Mean Velocity (LVOT): 0.51 m/s LVOT Diameter 1.97 cm Left Atrium LA Volume Index (2D A2C): 24.45 ml/m2 Left Atrium Systolic Dimension: 3.50 cm Mitral Valve MV E to A Ratio: 0.76 Mitral Valve A-Wave Peak Velocity: 0.47 m/s Mitral Valve E-Wave Peak Velocity: 0.36 m/s Right Ventricle Aorta AO Root Diam: 3.06 cm Aortic Valve AoV Area (Peak Te): 2.73 cm2, 2.73 cm2 AoV Area (VTI): 2.56 cm2, 2.56 cm2 Peak Velocity(Antegrade Flow): 0.94 m/s Peak Gradient(Antegrade Flow): 3.53 mm[Hg] Mean Velocity(Antegrade Flow): 0.67 m/s Mean Gradient(Antegrade Flow): 1.98 mm[Hg] Velocity Time Integral: 19.76 cm Tricuspid Valve Pulmonic Valve Peak Velocity: 0.74 m/s Peak Gradient: 2.40 mm[Hg], 2.02 mm[Hg] Right Atrium Dictated by: Nino Zapata M.D. on 05/27/2023 at 14:39 Approved by: Nino Zapata M.D. on 05/27/2023 at 14:43 Dictated By: Nino Zapata M.D. Signed By:05/27/23 1444 DD/ 1443 TD/TT: Coke Burner: Carmela Lester NP [facility] Final Result documented in this encounter Visit Diagnoses Not on filedocumented in this encounter Care Teams Pharmacy Intake Coordinator Relationship Specialty Start Date End Date Parviz Stewart MD [address] [place] [address] PCP - General Family Medicine 05/10/23 Carmela Lester NP [address] [place] [address] Referring Physician Nurse Practitioner 10/04/22 Carmela Lester NP [address] [place] [address] Nurse Practitioner Family Medicine 05/10/23 Nai Chávez DO [address] [place] [address] Referring Physician Neurology 03/27/24 Jessica Venegas NP [address] [place] [address] Nurse Practitioner Neurology 03/27/24 documented as of this encounter
--- OUTSIDE RECORDS SUMMARY | 2024-09-07 09:40 | XMS_ITS | Referral Summary ---
Author Organization [facility] Address [address] [place] [address] Care Team Providers Care Deputy Assessor Name Role Phone Carmela Lester MD Primary Care Provider [phone] Allergies No known active allergies Medications allopurinol (Zyloprim) 100 mg tablet Active aspirin 325 mg tablet Take 1 tablet every day by oral route. Active atorvastatin (Lipitor) 80 mg tablet Take 80 mg by mouth in the evening. 4 Active ezetimibe (Zetia) 10 mg tablet Take 10 mg by mouth in the morning. 4 Active gabapentin (Neurontin) 300 mg capsule Take 400 mg by mouth two times daily. 4 Active isosorbide mononitrate ER (Imdur) 120 mg 24 hr tablet Take 120 mg by mouth in the morning. 4 Active levothyroxine (Synthroid, Levoxyl) 75 mcg tablet 4 Active lisinopril 20 mg tablet Take 2 tablets by mouth at bedtime. Active metoprolol tartrate (Lopressor) 100 mg tablet Take 1 tablet by mouth in the morning and at bedtime. In addition to metopro tartrate 25mg bid = 125mg bid Active metoprolol tartrate (Lopressor) 25 mg tablet Take 25 mg by mouth twice a day. In addition to metoprolol tartrate 100mg bid= 125mg bid 4 Active nitroglycerin (Nitrostat) 0.[address] 1 tablet under the tongue if needed every 5 minutes for anabel... (REFER TO PRESCRIPTION NOTES). 4 Active tiZANidine (Zanaflex) 4 mg tablet take 1 tablet by mouth at bedtime if needed for muscle spasm FOR ... (REFER TO PRESCRIPTION NOTES). Active verapamil (Calan) 80 mg tablet Take 80 mg by mouth two times daily. Active Active Problems Problem Noted Date Diagnosed Date Daytime somnolence 09/26/2023 ERICK (obstructive sleep apnea) 09/26/2023 Paresthesia 09/26/2023 Cervical radiculopathy 09/07/2023 Cervical neck pain with evidence of disc disease 07/11/2023 Abnormal ankle brachial index (LYSSA) 05/10/2023 06/08/2023 Asymptomatic microscopic hematuria 05/10/2023 06/08/2023 Back pain, chronic 05/10/2023 06/08/2023 Bilateral hand pain 05/10/2023 06/08/2023 GERD (gastroesophageal reflux disease) 06/08/2023 Loud snoring 05/10/2023 06/08/2023 Lumbosacral radiculopathy at S1 05/10/2023 06/08/2023 Menorrhagia 05/10/2023 06/08/2023 Neuropathy 05/10/2023 06/08/2023 Peripheral artery disease 05/10/20232023 Seasonal allergies 05/10/2023 06/08/2023 Tobacco user 05/10/2023 06/08/2023 Trapezius muscle spasm 05/10/2023 Overview (06/08/2023): Last Assessment & Plan: Doing well on tizanidine, will give refill Will refer to [facility] in 6 weeks Vitamin B12 deficiency 05/10/2023 Vitamin D deficiency 05/10/2023 06/08/2023 Gout 05/09/2023 06/08/2023 Hypothyroidism (acquired) 02/07/20232023 Overview (06/08/2023): Last Assessment & Plan: C/o weight gain, fatigue Will check labs Cont current supplement at this time Prinzmetal angina 08/13/2011 06/08/2023 Essential hypertension 06/29/2011 Overview (06/08/2023): Last Assessment & Plan: Back on lisinopril BID, better blood pressure control with metoprolol at 125mg BID I have reviewed her ECHO report with her, I am going to refer her back to cardiology w her hx of CAD [facility], would like to see Dr Lombardo Coronary atherosclerosis 02/25/2011 024 Overview (06/08/2023): Last Assessment & Plan: Stable no chest pain Check labs, recommend quit tobacco Hyperlipidemia 02/25/2011 06/08/2023 Overview (06/08/2023): Needs refill of zetia Social History Tobacco Use Types Packs/Day Years Used Date Smoking Tobacco: Former Cigarettes Smokeless Tobacco: Current Tobacco Cessation:Ready to Q uit: Not Asked; Counseling Given: Not Answered Comments:vapes Alcohol Use Standard Drinks/Week Comments Not Currently 0 (1 standard drink = 0.6 oz pur e alcohol) [place] Safety & Environment Answer Date Rec orded Fear of Current or Ex-Partner Not on file Emotionally Abused Not on file 05/31/2023 Physically Abused Not on file 05/31/2023 Sexually Abused Not on file 05/31/2023 Physically or Sexually Abused Not on file Comments Unknown Sex and Gender Information Value Date Recorded Sex Assigned at Not on file Legal Sex Female 10:46 PM EDT Gender Identity Not on file Sexual Orientation Not on file Last Filed Vital Signs Vital Sign Reading Time Taken Comments Blood Pressure 128/84 06/04/2024 1:00 PM EDT Pulse 85 06/04/2024 1:00 PM EDT Temperature - - Respiratory Rate - - Oxygen Saturation 99% 06/04/2024 1:00 PM EDT Inhaled Oxygen Concentration - - Weight 65.8 kg (145 lb) 06/04/2024 1:00 PM EDT Height 162.6 cm (5' 4 ) 06/04/2024 1:00 PM EDT Body Mass Index 24.89 06/04/2024 1:00 PM EDT Plan of Treatment Not on file Insurance [employer] Care Teams Deputy Assessor Relationship Specialty Start Date End Date Carmela Lester MD [address] [place] [address] PCP - General Nurse Practitioner 06/08/23
--- OUTSIDE RECORDS SUMMARY | 2024-09-07 09:40 | XMS_ITS | Clinical Summary ---
Author Organization [facility] Address [address] [place] [address] Care Team Providers Care Business Office Technology Instructor Name Role Phone Carmela Lester MD Primary Care Provider [phone] Allergies No known active allergies Medications allopurinol [...] to cardiology w her hx of CAD [facility], would like to see Dr Lombardo Coronary atherosclerosis 02/25/2011 024 Overview (06/08/2023): Last Assessment & Plan: Stable no chest pain Check labs, recommend quit tobacco Hyperlipidemia 02/25/2011 06/08/2023 Overview (06/08/2023): Needs refill of zetia Family History Medical History Relation Name Comments Coronary artery disease Father Relation Name Status Comments Father Social History Tobacco Use Types Packs/Day Years Used Date Smoking Tobacco: Former Cigarettes Smokeless Tobacco: Current Tobacco Cessation:Ready to Q uit: Not Asked; Counseling Given: Not Answered Comments:vapes Alcohol Use Standard Drinks/Week Comments Not Currently 0 (1 standard drink = 0.6 oz pur e alcohol) [place] Safety & Environment Answer Date Rec orded [...] 06/04/2024 1:00 PM EDT Plan of Treatment Health Maintenance Due Date Last Done Comments CT Colonography 1970 Colonoscopy 1970 FIT-DNA 1970 FOBT 1970 Sigmoidoscopy 1971 Depression Screening 1983 Hepatitis B Vaccines (1 of 3 - 19+ 3-dose series) 1990 Pap Smear 02/28/1992 Adult Tetanus 1993 Cervical Cancer Screening 2001 HPV/Cotest 2001 Mammogram 2011 Zoster Vaccines (1 of 2) 2021 COVID-19 Vaccine ( season) 2023 Colorectal Cancer Screening 02/26/2024 FIT 02/26/2024 02/25/2023 Influenza Vaccine (Season Ended) 2024 11/04/2022, 01/01/2022, 01/03/2021, Additional history exists Pneumococcal Vaccine: Pediatrics (0 to 5 Years) and At-Risk Patients (6 to 64 Years) Completed 11/04/2022, 11/03/2018 HIB Vaccines Aged Out No longer eligi ble based on patient's age to complete this topic HPV Vaccines Aged Out No longer eligi ble based on patient's age to complete this topic IPV Vaccines Aged Out No longer eligi ble based on patient's age to complete this topic Meningococcal B Vaccine Aged Out No l onger eligible based on patient's age to complete this topic Meningococcal Vaccine Aged Out No jessica tomy eligible based on patient's age to complete this topic Rotavirus Vaccines Aged Out No longer eligible based on patient's age to complete this topic Insurance [employer] Care Teams Business Office Technology Instructor Relationship Specialty Start Date End Date Carmela Lester MD [address] [place] [address] PCP - General Nurse Practitioner 06/08/23
--- OUTSIDE RECORDS SUMMARY | 2024-09-07 09:40 | XMS_ITS | Encounter Summary ---
Author Organization [facility] Address [address] [place] [address] Care Team Providers Care Chemic Mangler Name Role Phone Carmela Lester NP Unavailable [phone] Parviz Stewart MD Primary Care Provider Carmela Lester HOG ROOM SUPERVISOR Unavailable [phone] Nai Chávez DO Unavailable [phone] Jessica Venegas HOG ROOM SUPERVISOR Unavailable [phone] Reason for Visit * Reason Comments Med Refill Encounter Details Date Type Department Care Team (Late st Contact Info) Description 01/13/2024 Refill [facility] [address] [place] [address] Carmela Lester NP [address] [place] [address] Essential hypertension Social History Tobacco Use Types Packs/Day Years [...] on file documented as of this encounter Miscellaneous Notes * Telephone Encounter - Carmela Lester NP - 01/13/2024 12:12 PM EDT Please contact pt, she needs fu appt for her blood pressure and chronic health conditons [place] documented in this encounter Plan of Treatment Upcoming Encounters Date Type Department Care Team (Late st Contact Info) Description 09/11/2024 2:20 PM EDT Office Visit [facility] [address] [place] [address] Carmela Lester NP [address] [place] [address] documented as of this encounter Visit Diagnoses Diagnosis Essential hypertension Unspecified essential hypertension documented in this encounter Care Teams Chemic Mangler Relationship Specialty Start Date End Date Parviz Stewart MD [address] [place] [address] PCP - General Family Medicine 05/10/23 Carmela Lester NP [address] [place] [address] Referring Physician Nurse Practitioner 10/04/22 Carmela Lester NP [address] [place] [address] Nurse Practitioner Family Medicine 05/10/23 Nai Chávez DO [address] [place] [address] Referring Physician Neurology 03/27/24 Jessica Venegas NP [address] [place] [address] Nurse Practitioner Neurology 03/27/24 documented as of this encounter
--- OUTSIDE RECORDS SUMMARY | 2024-09-07 09:40 | XMS_ITS | Encounter Summary ---
Author Organization [facility] Address [address] [place] [address] Care Team Providers Care Band Instrument Repairer Name Role Phone Carmela Lester NP Unavailable [phone] Parviz Stewart MD Primary Care Provider Carmela Lester STEAM LOCOMOTIVE FIRER/FIREMAN Unavailable [phone] Nai Chávez DO Unavailable [phone] Jessica Venegas NP Unavailable [phone] Encounter Details Date Type Department Care Team (Late st Contact Info) Description 04/03/2024 Orders Only [facility] [address] [place] [address] Carmela Lester NP [address] [place] [address] Social History Tobacco Use Types Packs/Day Years [...] 09/11/2024 2:20 PM EDT Office Visit [facility] [address] [place] [address] Carmela Lester NP [address] [place] [address] documented as of this encounter Procedures Procedure Name Priority Date/Time Associated Diagnosis Comments EMG AND NERVE CONDUCTION STUDY Routine 10/01/2020 2:37 PM EDT documented in this encounter Results * EMG AND NERVE CONDUCTION STUDY (10/01/2020 2:37 PM EDT) us Carmela Lester NP NEUROLOGY ORDERABLES Final Resu lt documented in this encounter Visit Diagnoses Not on filedocumented in this encounter Care Teams Band Instrument Repairer Relationship Specialty Start Date End Date Parviz Stewart MD [address] [place] [address] PCP - General Family Medicine 05/10/23 Carmela Lester NP [address] [place] [address] Referring Physician Nurse Practitioner 10/04/22 Carmela Lester NP [address] [place] [address] Nurse Practitioner Family Medicine 05/10/23 Nai Chávez DO [address] [place] [address] Referring Physician Neurology 03/27/24 Jessica Venegas NP [address] [place] [address] Nurse Practitioner Neurology 03/27/24 documented as of this encounter
--- OUTSIDE RECORDS SUMMARY | 2024-09-07 09:40 | XMS_ITS | Encounter Summary ---
Author Organization [facility] Address [address] [place] [address] Care Team Providers Care Glass Glazier Name Role Phone Carmela Lester NP Unavailable [phone] Parviz Stewart MD Primary Care Provider [phone] Carmela Lester MANAGER LABOR DELIVERY Unavailable [phone] Nai Chávez DO Unavailable [phone] Jessica Venegas MANAGER LABOR DELIVERY Unavailable [phone] Encounter Details Date Type Department Care Team (Late st Contact Info) Description 05/30/2023 Orders Only [facility] [address] [place] [address] Carmela Lester MANAGER LABOR DELIVERY [address] [place] [address] Social History Tobacco Use Types Packs/Day Years [...] Not at all 05/30/2023 3:08 PM EDT MIKEVIDYA LORENZOAN Sari Feeling down, depressed, or hopeless Not at all 05/30/2023 3:08 PM EDT MIKEBJ LAITH Sari Patient Health Questionnaire -2 Score 0 05/30/2023 3:08 PM EDT MIKEVIDYA LORENZOAN Sari documented as of this encounter Plan of Treatment Upcoming Encounters Date Type Department Care Team (Late st Contact Info) Description 09/11/2024 2:20 PM EDT Office Visit [facility] [address] [place] [address] Carmela Lester NP [address] [place] [address] documented as of this encounter Procedures Procedure Name Priority Date/Time Associated Diagnosis Comments ECHO TRANSTHORACIC W/ DOPPLER Routine 05/26/2023 8:50 AM EDT documented in this encounter Results * ECHO TRANSTHORACIC W/ DOPPLER (05/26/2023 8:50 AM EDT) Anatomical Region Laterality Modality Radiographic Regla ging us Carmela Lester MANAGER LABOR DELIVERY IMG XR PROCEDURES Final Result documented in this encounter Visit Diagnoses Not on filedocumented in this encounter Care Teams Glass Glazier Relationship Specialty Start Date End Date Parviz Stewart MD [address] [place] [address] PCP - General Family Medicine 05/10/23 Carmela Lester NP [address] [place] [address] Referring Physician Nurse Practitioner 10/04/22 Carmela Lester NP [address] [place] [address] Nurse Practitioner Family Medicine 05/10/23 Nai Chávez DO [address] [place] [address] Referring Physician Neurology 03/27/24 Jessica Venegas NP [address] [place] [address] Nurse Practitioner Neurology 03/27/24 documented as of this encounter
--- OUTSIDE RECORDS SUMMARY | 2024-09-07 09:56 | XMS_ITS | CCD ---
Author Organization [facility] Care Team Providers Care Outside Plant Technician Name Role Phone AICHHOLZ, WATCH DIAL STONER CARMELA Admitting Unavailable AICHHOLZ, WATCH DIAL STONER CARMELA Attending Unavailable AICHHOLZ, WATCH DIAL STONER CARMELA Primary Care Unavailable AICHHOLZ, WATCH DIAL STONER CARMELA Consulting Unavailable AICHHOLZ, WATCH DIAL STONER CARMELA Admitting Unavailable AICHHOLZ, WATCH DIAL STONER CARMELA Attending Unavailable AICHHOLZ, WATCH DIAL STONER CARMELA Primary Care Unavailable AICHHOLZ, WATCH DIAL STONER CARMELA Consulting Unavailable AICHHOLZ, WATCH DIAL STONER CARMELA Admitting Unavailable AICHHOLZ, WATCH DIAL STONER CARMELA Attending Unavailable AICHHOLZ, WATCH DIAL STONER CARMELA Primary Care Unavailable AICHHOLZ, WATCH DIAL STONER CARMELA Consulting Unavailable AICHHOLZ, WATCH DIAL STONER CARMELA Admitting Unavailable AICHHOLZ, WATCH DIAL STONER CARMELA Attending Unavailable AICHHOLZ, WATCH DIAL STONER CARMELA Primary Care Unavailable AICHHOLZ, WATCH DIAL STONER CARMELA Consulting Unavailable Aichholz, Carmela J Primary Care Provider ORLY Comer Attending Provider ORLY Comer Attending Provider ORLY Comer Attending Provider DO Milton Appiah Attending Provider Trevon, Carmela J Primary Care Provider Milton Appiah DO Attending Provider Aicjerome CRIMINAL ATTORNEY, Carmela Unavailable Parviz Stewart MD Primary Care Provider Aichholz CRIMINAL ATTORNEY, Carmela Unavailable Milton Appiah Attending Unavailable Milton Appiah Admitting Unavailable Aichholz, Carmela J Primary Care Unavailable Td Milton N Attending Unavailable Milton Appiah N Admitting Unavailable OsieljaneCarmela painter J Primary Care Unavailable Loly Comer Admitting Unavailable Trevon, Carmela J Primary Care Unavailable Nahomi, Loly Attending Unavailable Bialabdi, Milton N Attending Unavailable Td, Milton N Admitting Unavailable Toshiainocencio, Carmela J Primary Care Unavailable Den Espinoza DO Unavailable Jessica Venegas NP Unavailable [phone] DEN ESPINOZA Attending Unavailable AICHHOLZ, CARMELA Attending Unavailable AICHHOLZ, CARMELA Attending Unavailable AICHHOLZ, CARMELA Attending Unavailable AICHHOLZ, CARMELA Attending Unavailable ASHUTOSH [place] Attending Unavailable AICHHOLZ, CARMELA Referring Unavailable DEN ESPINOZA Attending Unavailable BIALASKI, MILTON Referring Unavailable ELTAHAWY, EHAB Attending Unavailable ELTAHAWY, EHAB Attending Unavailable Gikadiitis , Andrius Vytautana maria Attending Unavailable Giedraitis , Andrius Vytautana maria Attending Unavailable Gikadiitis , Andrius Vytautas Attending Unavailable Gikadiitis , Andrius Vytautas Attending Unavailable Theo BENITEZ, Jessica Unavailable Allergies Allergy Classification Reported Allergen(s) Allergy Type Date of Onset Reaction(s) Facility (1 source) Desonide Drug Allergy 12-02-2012 [facility] (13 sources) Wound Dressing Adhesive Drug [facility] Medications Current Medications Medication Drug Class(es) [...] MG tablet Indications: 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 (CMS/HCC) Take 1 tablet (80 mg) by mouth at bedtime Take pill in the evening time not morning 90 tablet 05/21/2024 Active ezetimibe 10 mg oral tablet (20 sources) Dietary Cholesterol Absorption Inhibitor Start: 10-06-2023 Ezetimibe Active MG PO October 06, 2023 12:00am Start: 08-10-2023 End: 11-18-2024 take 1 tablet by mouth once daily ezetimibe (Zetia) 10 MG tablet Indications: 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 Take 120 mg by mouth in the morning. Do not crush or chew. . 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 Take 120 mg by mouth in the morning. Do not crush or chew. . 90 tablet 1 11/22/2023 Active levothyroxine sodium 0.075 mg oral tablet (20 sources) l-Thyroxine Start: 05-21-2024 End: 11-18-2024 take 1 tablet by mouth before mealtime levothyroxine (Synthroid, Levoxyl) 75 MCG tablet Indications: Hypothyroidism (acquired) (CMS/HCC) Take 1 tablet (75 mcg) by mouth in the morning. Take before meals. 90 tablet 08/20/2024 11/18/2024 Active Start: 10-06-2023 Levothyroxine Active MCG PO October [...] 11/22/2023 Active lisinopril 20 mg oral tablet (20 sources) Angiotensin Converting Enzyme Inhibitor Start: 05-21-2024 End: 11-18-2024 take 1 tablet by mouth in the morning lisinopril 20 MG tablet Indications: Essential hypertension (CMS/HCC) , Primary hypertension (CMS/HCC) Take 1 tablet (20 mg) by mouth in the morning and 1 tablet (20 mg) before bedtime. 180 tablet 08/20/2024 11/18/2024 Active Start: 10-06-2023 Lisinopril Act sonia MG PO October 06, 2023 12:00am Start: 08-10-2023 End: 02-20-2024 take 1 tablet by mouth in the morning lisinopril 20 MG tablet Indications: Essential hypertension (CMS/HCC) , Primary hypertension (CMS/HCC) Take 1 tablet (20 mg) by mouth in the morning and 1 tablet (20 mg) before bedtime. 180 tablet 1 11/22/2023 Active metoprolol tartrate 25 mg oral tablet (20 sources) beta-Adrenergic Sara Start: 05-21-2024 End: 11-18-2024 take 1 tablet by mouth in the morning metoprolol tartrate (Lopressor) 100 MG tablet Indications: Essential hypertension (CMS/HCC) , Primary hypertension (CMS/HCC) Take 1 tablet (100 mg) by mouth in the morning and 1 tablet (100 mg) before bedtime. 180 tablet 08/20/2024 11/18/2024 Active Start: 05-21-2024 End: 11-18-2024 take 1 tablet by mouth in the morning metoprolol tartrate (Lopressor) 25 MG tablet Indications: Essential hypertension (CMS/HCC) Take 1 tablet (25 mg) by mouth in the morning and 1 tablet (25 mg) before bedtime. 180 tablet 08/20/2024 11/18/2024 Active Start: 03-14-2024 End: 04-13-2024 take 1 tablet [...] 60 tablet 1 11/22/2023 12/22/2023 Active Nitroglycerin (16 sources) Nitrate Vasodilator Start: 12-26-2023 Nitroglyce rin Active MG SUBLINGUAL December 26, 2023 12:00am Start: 05-10-2023 End: 12-25-2023 nitroglycerin (Nitrostat) 0. 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 (CMS/HCC) Place 1 tablet (0.4 mg) under the tongue every 5 (five) minutes if needed for chest pain If after 3 doses still chest pain, go to ER/call 911 25 tablet 11/25/2023 Active Nitroglycerin 0.4 mg tablet, sublingual (1 source) Start: 12-26-2023 Nitroglycerin 0.4 mg tablet, sublingual Active MG SUBLINGUAL December 25, 2023 11:00pm tiZANidine 4 mg oral tablet (18 sources) Central alpha-2 Adrenergic Agonist Start: 10-06-2023 [...] Active verapamil hydrochloride 80 mg oral tablet (20 sources) Calcium Channel Sara Start: 10-06-2023 Verapamil [...] Date Documented Date Episodic/Chronic Acute myocardial infarction (13 sources) Myocardial infarction; Translations: [Acute myocardial infarction, unspecified] Onset: 05-10-2023 05-10-2023 Chronic Coronary atherosclerosis and other heart disease (20 sources) 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; Translations: [Angina pectoris] Onset: 02-25-2011 02-07-2023 Chronic Disorders of lipid metabolism (18 sources) Pure hyperglyceridemia; Translations: [Hyperlipidemia, unspecified] Onset: 02-25-2011 Chronic Esophageal disorders (13 sources) Gastroesophageal reflux disease; Translations: [Gastro-esophageal reflux disease without esophagitis] Onset: 05-10-2023 05-10-2023 Chronic Essential hypertension (20 sources) Essential (primary) hypertension; Translations: [Hypertensive disorder] Onset: 06-29-2011 Chronic Gout and other crystal arthropathies (20 sources) Gout, unspecified; Translations: [Primary gout] Onset: 01-26-2022 02-07-2023 Chronic Malaise and fatigue (1 source) Other fatigue; Translations: [OTHER FATIGUE] Onset: 07-24-2022 Episodic Menstrual disorders (13 sources) Menorrhagia; Translations: [Excessive and frequent menstruation with regular cycle] Onset: 05-10-2023 05-10-2023 Chronic Nutritional deficiencies (13 sources) Vitamin D deficiency; Translations: [Vitamin D [...] 02-01-2024 10-06-2023 Chronic Other nervous system disorders (14 sources) Neuropathy; Translations: [Polyneuropathy, unspecified] Onset: 05-10-2023 05-10-2023 Chronic Other nervous system disorders (13 sources) Sensory neuropathy; Translations: [Polyneuropathy, unspecified] Onset: [...] Onset: 07-24-2022 Episodic Other upper respiratory disease (13 sources) Seasonal allergy; Translations: [Other seasonal allergic rhinitis] Onset: 05-10-2023 05-10-2023 Chronic Peripheral and visceral atherosclerosis (13 sources) Peripheral vascular disease, unspecified; Translations: [Peripheral vascular disease, unspecified] Onset: 05-10-2023 05-10-2023 Chronic Residual codes; unclassified (13 sources) Obstructive sleep apnea syndrome; Translations: [Obstructive sleep apnea (adult) (pediatric)] Onset: 09-26-2023 09-26-2023 Chronic Spondylosis; intervertebral disc disorders; other back problems (13 sources) Pain in cervical spine; Translations: [Cervical disc disorder, unspecified, unspecified cervical region] Onset: 07-11-2023 07-11-2023 Chronic Thyroid disorders (20 sources) Hypothyroidism, unspecified; Translations: [Acquired hypothyroidism] Onset: 01-26-2022 Chronic Past or Other Problems Problem Classification Problem Date Documented Da te Episodic/Chronic Chronic obstructive pulmonary disease and bronchiectasis (13 sources) Bronchitis; Translations: [Bronchitis, not specified as acute or chronic] Onset: 02-07-2023 Resolved: 05-10-2023 05-10-2023 Episodic Coma; stupor; and brain damage (13 sources) Daytime somnolence; Translations: [Somnolence] Onset: 09-26-2023 09-26-2023 Episodic Fracture of lower limb (13 sources) Closed fracture of head of fibula; Translations: [Other fracture of upper and lower end of unspecified fibula, subsequent encounter for closed fracture with routine healing] Onset: 05-10-2023 Resolved: 05-10-2023 05-10-2023 Episodic Genitourinary symptoms and ill-defined conditions (13 sources) Asymptomatic microscopic hematuria; Translations: [Asymptomatic microscopic hematuria] Onset: 05-10-2023 05-10-2023 Episodic Nutritional deficiencies (13 sources) Cobalamin deficiency; Translations: [Deficiency of other specified B group vitamins] Onset: 05-10-2023 05-10-2023 Episodic Other connective tissue disease (13 sources) Pain of bilateral hands; Translations: [Pain in right hand] Onset: 05-10-2023 05-10-2023 Episodic Other connective tissue disease (20 sources) Muscle spasm of cervical muscle of neck; Translations: [Other muscle spasm] Onset: 05-10-2023 Resolved: 05-10-2023 05-10-2023 Episodic Other lower respiratory disease (13 sources) Snoring; Translations: [Snoring] Onset: 05-10-2023 05-10-2023 Episodic Other nervous system disorders (13 sources) Paresthesia; Translations: [Paresthesia of skin] Onset: 09-26-2023 09-26-2023 Episodic Residual codes; unclassified (13 sources) Finding of systemic arterial pressure; Translations: [Other general symptoms and signs] Onset: 05-10-2023 05-10-2023 Episodic Residual codes; unclassified (13 sources) Tobacco user; Translations: [Tobacco use] Onset: 05-10-2023 05-10-2023 Episodic Spondylosis; intervertebral disc disorders; other back problems (20 sources) Cervical radiculopathy; Translations: [Radiculopathy, cervical region] Onset: 05-10-2023 10-06-2023 Episodic Results Test Name Value Interpretation Reference Range Facility Office Visiton 06-04-2024 Follow-up visit [id number] Diane Canas 1970 F Date Provider Department Center 06/04/2024 Kira-MIAH THOMPSON [facility] Family History Problem Relation Age of Onset Coronary artery disease Father Family Status - Relation Status Age at Father Level of Service:29[address] CT OFFICE/OUTPATIENT ESTABLISHED LOW MDM 20 MIN Normal [facility] EMG 2 Extremitieson 04-09-19 25 EMG/NCS BLE Moderate left chronic S1 radic [facility] 9-10 Nerveson 04-09-2024 EMG/NCS BLE Moderate left chronic S1 radic [facility] 9-10 NervesOrdered By: Yari Espinoza on 04-09-2024 [facility] Work Phone: ALL [facility]OL[facility] ACIDon 03-31-2024 FOLATE 4.3 ng/mL Low 8.60 - 58.90 ng/mL [facility] Interpretation and review of laboratory results Abnormal [facility] MR head/brain wo/w conon MR head/brain wo/w con [facility] [place] [address] MRI Report Signed Patient: Diane Canas MR#: [id number] 98 : 1970 Acct:[id number] Age/Sex: 54 / F ADM Date: 03/02/24 Loc: MR Room: Type: [facility] CLI Attending Dr: Milton Appiah DO Copies [...] Gini Solis M.D.03/02/2024 11:22 PM Dictation Location: [place] [address] Transcribed By: [facility] 03/02/24 2322 Dictated By: Gini Solis MD 03/02/24 2312 Signed By: 03/02/24 2322 Normal [facility] MR cervical spine wo conon 1 03-14-2023 MR cervical spine wo con [facility] [place] [address] MRI Report Signed Patient: Diane Canas MR#: [id number] 98 : 1970 Acct:[id number] Age/Sex: 53 / F ADM Date: 01/13/24 Loc: MR Room: Type: [facility] CLI Attending Dr: Milton Appiah DO Copies [...] Dank Camara M.D.01/13/2024 9:02 PM Dictation Location: [place] [address] Transcribed By: [facility] 01/13/242101 Dictated By: Dank Camara DO 01/13/242053 Signed By: 01/13/242101 Normal [facility] XR cerv spine AP/LAT/FLX/EXT on 10-27-2023 XR cerv spine AP/LAT/FLX/EXT [facility] [address] [address] XRay Report Signed Patient: Diane Canas MR#: [id number] 98 : 1970 Acct:[id number] Age/Sex: 53 / F ADM Date: 10/27/23 Loc: XD Room: Type: [facility] Attending Dr: Loly Comer APRN Copies to: [...] Dank Camara M.D.10/27/2023 4:13 PM Dictation Location: [place] [address] Transcribed By: [facility] 10/27/23 1613 Dictated By: Dank Camara DO 10/27/23 1611 Signed By: 10/27/23 1613 Normal [facility] Office Visiton 06-08-2023 Follow-up visit [id number] Diane Canas 1970 F Date Provider Department Center 06/08/2023 271-MIAH THOMPSON [facility] Family History Problem Relation Age of Onset Coronary artery disease Father Family Status - Relation Status Age at Father Level of Service:23315 CT OFFICE/OUTPATIENT NEW LOW MDM 30 MINUTES Normal [facility] CBC AUTO DIFFon 07-22-2022 BASO # 0.1 103/ul Normal 0.0-0.1 [facility] Comment on above: Performed By: #### C BC #### [facility] [address] [place] [address] Dr. Candy Cortez Basophils/100 WBC (Bld) 0.6 % Normal 0.2-2.0 [facility] Comment on above: Performed By: #### C BC #### [facility] [address] [place] [address] Dr. Candy Cortez EO # 0.3 103/ul Normal 0.0-0.7 [facility] Comment on above: Performed By: #### C BC #### [facility] [address] [place] [address] Dr. Candy Cortez Eosinophils/100 WBC (Bld) 2.8 % Normal 0.9-7.0 [facility] Comment on above: Performed By: #### C BC #### [facility] [address] [place] [address] Dr. Candy Cortez Erythrocyte distribution width (RBC) [Ratio] 11.9 % Normal 11.0-15.0 [facility] Comment on above: Performed By: #### C BC #### [facility] [address] [place] [address] Dr. Candy Cortez Hematocrit (Bld) [Volume fraction] 39.5 % Normal 36.0-48.0 [facility] Comment on above: Performed By: #### C BC #### [facility] [address] [place] [address] Dr. Candy Cortez Hemoglobin (Bld) [Mass/Vol] 12.8 g/dL Normal 12.0-16.0 [facility] Comment on above: Performed By: #### C BC #### [facility] [address] [place] [address] Dr. Candy Cortez IG # 0.04 10e3/ul Critically high 0.00-0.03 [facility] Comment on above: Performed By: #### C BC #### [facility] [address] [place] [address] Dr. Candy Cortez IG % 0.4 % Normal 0.0-0.5 [facility] Comment on above: Performed By: #### C BC #### [facility] [address] [place] [address] Dr. Candy Cortez LYMPH # 3.2 103/ul Normal 1.2-3.8 [facility] Comment on above: Performed By: #### C BC #### [facility] [address] [place] [address] Dr. Candy Cortez Lymphocytes/100 WBC (Bld) 33.9 % Normal 20.5-60.0 [facility] Comment on above: Performed By: #### C BC #### [facility] [address] [place] [address] Dr. Candy Cortez MANUAL DIFF REQ NO Normal [facility] [place] Comment on above: Performed By: #### C BC #### [facility] [address] [place] [address] Dr. Candy Cortez MCH (RBC) [Entitic mass] 31.3 pg Normal 26.7-34.0 [facility] Comment on above: Performed By: #### C BC #### [facility] [address] [place] [address] Dr. Candy Cortez MCHC (RBC) [Mass/Vol] 32.4 g/dL Normal 29.9-35.2 [facility] Comment on above: Performed By: #### C BC #### [facility] [address] [place] [address] Dr. Candy Cortez MCV (RBC) [Entitic vol] 96.6 fL Normal 81.0-99.0 [facility] Comment on above: Performed By: #### C BC #### [facility] [address] [place] [address] Dr. Candy Cortez MONO # 0.8 103/ul Normal 0.3-0.8 [facility] Comment on above: Performed By: #### C BC #### [facility] [address] [place] [address] Dr. Candy Cortez Monocytes/100 WBC (Bld) 8.3 % Normal 1.7-12.0 [facility] Comment on above: Performed By: #### C BC #### [facility] [address] [place] [address] Dr. Candy Cortez NEUT # 5.1 103/ul Normal 1.4-6.5 [facility] Comment on above: Performed By: #### C BC #### [facility] [address] [place] [address] Dr. Candy Cortez Neutrophils/100 WBC (Bld) 54.0 % Normal 43.0-75.0 [facility] Comment on above: Performed By: #### C BC #### [facility] [address] [place] [address] Dr. Candy Cortez Platelet mean volume (Bld) [Entitic vol] 11.6 fL Normal 9.5-13.5 [facility] Comment on above: Performed By: #### C BC #### [facility] [address] [place] [address] Dr. Candy Cortez PLT 258 103/ul Normal 150-450 [facility] Comment on above: Performed By: #### C BC #### [facility] [address] [place] [address] Dr. Candy Cortez RBC 4.09 106/ul Critically low 4.20-5.40 [facility] [place] Comment on above: Performed By: #### C BC #### [facility] [address] [place] [address] Dr. Candy Cortez WBC 9.4 103/ul Normal 4.0-11.0 [facility] Comment on above: Performed By: #### C BC #### [facility] [address] [place] [address] Dr. Candy Cortez FREE T4on 07-22-2022 Free T4 [Mass/Vol] 0.91 ng/dL Normal 0.76-1.46 [facility] Comment on above: Performed By: #### T SH, URIC, CMP, LIPID #### [facility] [address] [place] [address] Dr. Candy Cortez IRONon 07-22-2022 Iron [Mass/Vol] 106.0 ug/dL Normal 50.0-170.0 [facility] Comment on above: Performed By: #### T SH, URIC, CMP, LIPID #### [facility] [address] [place] [address] Dr. Candy Cortez PROF 14(COMP METB)on 023 Albumin [Mass/Vol] 3.7 g/dL Normal 3.4-5.0 [facility] Comment on above: Performed By: #### T CRISS, CMP #### [facility] [address] [place] [address] [address] Candy Cortez Albumin/Globulin [Mass ratio] 1.0 {ratio} Normal [facility] Comment on above: Performed By: #### T SH, CMP #### [facility] [address] [place] [address] [address] Candy Cortez ALP [Catalytic activity/Vol] 84 U/L Normal 46-116 [facility] Comment on above: Performed By: #### T CRISS, CMP #### [facility] [address] [place] [address] [address] Candy Cortez ALT [Catalytic activity/Vol] 36 U/L Normal 14-59 [facility] Comment on above: Performed By: #### T CRISS, CMP #### [facility] [address] [place] [address] [address] Candy Cortez Anion gap [Moles/Vol] 11.6 mmol/L Normal [facility] Comment on above: Performed By: #### T CRISS, CMP #### [facility] [address] [place] [address] [address] Candy Cortez AST [Catalytic activity/Vol] 30 U/L Normal 15-37 [facility] Comment on above: Performed By: #### T CRISS, CMP #### [facility] [address] [place] [address] [address] Candy Cortez Bilirubin [Mass/Vol] 0.4 mg/dL Normal 0.2-1.0 [facility] Comment on above: Performed By: #### T SH, CMP #### [facility] [address] [place] [address] [address] Candy Cortez Calcium [Mass/Vol] 9.4 mg/dL Normal 8.5-10.1 [facility] Comment on above: Performed By: #### T CRISS, CMP #### [facility] [address] [place] [address] [address] Candy Cortez Chloride [Moles/Vol] 105 mmol/L Normal 98-107 [facility] Comment on above: Performed By: #### T SH, CMP #### [facility] [address] [place] [address] Dr. Candy Cortez CO2 [Moles/Vol] 29.2 mmol/L Normal 21.0-32.0 [facility] Comment on above: Performed By: #### T SH, CMP #### [facility] [address] [place] [address] Dr. Candy Cortez Creatinine [Mass/Vol] 0.78 mg/dL Normal 0.55-1.02 [facility] Comment on above: Performed By: #### T SH, CMP #### [facility] [address] [place] [address] Dr. Candy Cortez EGFR-AF PAKISTANI >60 Normal >=60 [facility] Comment on above: Performed By: #### T SH, CMP #### [facility] [address] [place] [address] Dr. Candy Cortez EGFR-NON AF PAKISTANI >60 Normal >=60 [facility] Comment on above: Performed By: #### T SH, CMP #### [facility] [address] [place] [address] Dr. Candy Cortez Globulin (S) [Mass/Vol] 3.8 g/dL Normal [facility] Comment on above: Performed By: #### T SH, CMP #### [facility] [address] [place] [address] Dr. Candy Cortez Glucose [Mass/Vol] 95 mg/dL Normal 74-106 [facility] Comment on above: Performed By: #### T SH, CMP #### [facility] [address] [place] [address] Dr. Candy Cortez Potassium [Moles/Vol] 4.8 mmol/L Normal 3.5-5.1 [facility] Comment on above: Performed By: #### T SH, CMP #### [facility] [address] [place] [address] Dr. Candy Cortez Protein [Mass/Vol] 7.5 g/dL Normal 6.4-8.2 [facility] Comment on above: Performed By: #### T SH, CMP #### [facility] [place] [address] Dr. Candy Cortez Sodium [Moles/Vol] 141 mmol/L Normal 136-145 [facility] Comment on above: Performed By: #### T SH, CMP #### [facility] [address] [place] [address] Dr. Candy Cortez Urea nitrogen [Mass/Vol] 13.0 mg/dL Normal 7.0-18.0 [facility] Comment on above: Performed By: #### T CRISS, CMP #### [facility] [address] [place] [address] Dr. Candy Cortez Urea nitrogen/Creatinine [Mass ratio] 16.7 mg/mg Normal [facility] Comment on above: Performed By: #### T CRISS, CMP #### [facility] [address] [place] [address] Dr. Candy Cortez TSHon 07-22-2022 TSH 0.818 uIU/mL Normal 0.358-3.740 [facility] Comment on above: Performed By: #### T CRISS, CMP #### [facility] [address] [place] [address] Dr. Candy Cortez UA RANDOM W/MICROSCOPICon BACTERIA NONE SEEN Normal NONE SEEN [facility] Comment on above: Performed By: #### U AMIC #### [facility] [address] [place] [address] Dr. Candy Cortez Bilirubin Ql (U) Negative Normal NEGATIVE [facility] Comment on above: Performed By: #### U AMIC #### [facility] [address] [place] [address] Dr. Candy Cortez CAST NONE SEEN Normal NONE SEEN [facility] Comment on above: Performed By: #### U AMIC #### [facility] [address] [place] [address] Dr. Candy Cortez Clarity (U) CLEAR Normal CLEAR [facility] Comment on above: Performed By: #### U AMIC #### [facility] [address] [address] [address] Candy Cortez Color (U) LT. YELLOW Normal YELLOW [facility] Comment on above: Performed By: #### U AMIC #### [facility] [address] [address] [address] Candy Cortez Crystals LM Nom (Urine sed) NONE SEEN Normal NONE SEEN [facility] Comment on above: Performed By: #### U AMIC #### [facility] [address] [address] [address] Candy Cortez Epithelial cells LM Ql (Urine sed) RARE Normal NONE SEEN /RARE [facility] Comment on above: Performed By: #### U AMIC #### [facility] [address] [place] [address] Dr. Candy Cortez Glucose Ql (U) Negative Normal NEGATIVE [facility] Comment on above: Performed By: #### U AMIC #### [facility] [address] [place] [address] Dr. Candy Cortez Hemoglobin Ql (U) Negative Normal NEGATIVE [facility] Comment on above: Performed By: #### U AMIC #### [facility] [address] [place] [address] Dr. Candy Cortez Ketones Ql (U) Negative Normal NEGATIVE [facility] Comment on above: Performed By: #### U AMIC #### [facility] [address] [address] [address] Candy Cortez LEUKOCYTES Negative Normal NEGATIVE [facility] Comment on above: Performed By: #### U AMIC #### [facility] [address] [address] [address] Candy Cortez MUCOUS NONE SEEN Normal NONE SEEN [facility] Comment on above: Performed By: #### U AMIC #### [facility] [address] [place] [address] Dr. Candy Cortez Nitrite Ql (U) Negative Normal NEGATIVE [facility] Comment on above: Performed By: #### U AMIC #### [facility] [address] [address] [address] Candy Cortez pH (U) 7.0 [pH] Normal 5-9 [facility] Comment on above: Performed By: #### U AMIC #### [facility] [address] [place] [address] Dr. Candy Cortez RBC 0-2 Normal 0-2 [facility] Comment on above: Performed By: #### U AMIC #### [facility] [address] [place] [address] Dr. Candy Cortez SPEC GRAVITY <=1.005 Abnormal 1.005-<=1.025 [facility] Comment on above: Performed By: #### U AMIC #### [facility] [address] [place] [address] Dr. Candy Cortez UA PROTEIN Negative Normal NEGATIVE/ TRACE [facility] Comment on above: Performed By: #### U AMIC #### [facility] [address] [place] [address] Dr. Candy Cortez Urobilinogen Qn (U) 0.2 {Nicko'U}/dL Normal 0.2 - 1. 0 [facility] Comment on above: Performed By: #### U AMIC #### [facility] [address] [place] [address] Dr. Candy Cortez WBC 0-2 Abnormal NONE SEEN [facility] Comment on above: Performed By: #### U AMIC #### [facility] [address] [place] [address] Dr. Candy Cortez VITAMIN B12on 07-22-2022 Cobalamin (Vitamin B12) [Mass/Vol] 201.0 pg/mL Normal 193.0-986.0 [facility] Comment on above: Performed By: #### T SH, URIC, CMP, LIPID #### [facility] [address] [place] [address] Dr. Candy Cortez VITAMIN D 25 OHon 07-22-2022 VIT D 25-OH 14.6 ng/mL Normal [facility] Comment on above: Performed By: #### T SH, URIC, CMP, LIPID #### [facility] [address] [address] [address] Candy Cortez VIT D RANGES SEE BELOW Normal [facility] Comment on above: Result Comment: <20 ng/mL Vit D deficient 20 - <30 ng/mL Vit D insufficient 30 - 100 ng/mL Vit D sufficient >100 ng/mL Potential Toxicity Performed By: #### T SH, URIC, CMP, LIPID #### [facility] [address] [address] [address] Candy Cortez LIPID PROFILEon 07-05-2022 CHOL-HDL RATIO NORM SEE BELOW Normal [facility] Comment on above: Result Comment: 3.3 - 4.4 LOW RISK 4.4 - 7.1 AVERAGE RISK 7.1 - 11.0 MODERATE RISK >11.0 HIGH RISK Performed By: #### T SH, URIC, CMP, LIPID #### [facility] [address] [address] [address] Candy Cortez Cholesterol [Mass/Vol] 162 mg/dL Normal <=200 [facility] Comment on above: Performed By: #### T SH, URIC, CMP, LIPID #### [facility] [address] [address] [address] Candy Cortez Cholesterol in HDL [Mass/Vol] 74 mg/dL Critically high 40-60 [facility] Comment on above: Performed By: #### T SH, URIC, CMP, LIPID #### [facility] [address] [address] [address] Candy Cortez Cholesterol in LDL [Mass/Vol] 54.8 mg/dL Normal [facility] Comment on above: Performed By: #### T SH, URIC, CMP, LIPID #### [facility] [address] [address] [address] Candy Cortez Cholesterol.total/Ch olesterol in HDL [Mass ratio] 2.2 {ratio} Normal [facility] Comment on above: Performed By: #### T SH, URIC, CMP, LIPID #### [facility] [address] [address] [address] Candy Cortez HDL NORMAL > or = 60 mg/dl - LOW CARDIOVASCULAR RISK <40 mg/dl - HIGH CARDIOVASCULAR RISK Normal [facility] Comment on above: Performed By: #### T SH, URIC, CMP, LIPID #### [facility] [address] [address] [address] Candy Cortez LDL CALC NORMAL SEE BELOW Normal [facility] Comment on above: Result Comment: <100 mg/dl OPTIMAL 100 - 129 mg/dl NEAR OR ABOVE OPTIMAL 130 - 159 mg/dl BORDERLINE HIGH 160 - 189 mg/dl HIGH >190 mg/dl VERY HIGH Performed By: #### T SH, URIC, CMP, LIPID #### [facility] [address] [address] [address] Candy Cortez Triglyceride [Mass/Vol] 166 mg/dL Critically high <=150 [facility] Comment on above: Performed By: #### T SH, URIC, CMP, LIPID #### [facility] [address] [address] [address] Candy Cortez VLDL CALC 33.2 mg/dL Normal [facility] Comment on above: Performed By: #### T SH, URIC, CMP, LIPID #### [facility] [address] [address] [address] Candy Flower 07-05-2022 AST [Catalytic activity/Vol] 32 U/L Normal 15-37 [facility] Comment on above: Performed By: #### T SH, URIC, CMP, LIPID #### [facility] [address] [place] [address] Dr. Candy Colby 07-05-2022 ALT [Catalytic activity/Vol] 52 U/L Normal 14-59 [facility] Comment on above: Performed By: #### T SH, URIC, CMP, LIPID #### [facility] [address] [address] [address] Candy Cortez LIPID PROFILEon 05-10-2022 CHOL-HDL RATIO NORM SEE BELOW Normal [facility] Comment on above: Result Comment: 3.3 - 4.4 LOW RISK 4.4 - 7.1 AVERAGE RISK 7.1 - 11.0 MODERATE RISK >11.0 HIGH RISK Performed By: #### T SH, URIC, CMP, LIPID #### [facility] [address] [address] [address] Candy Cortez Cholesterol [Mass/Vol] 178 mg/dL Normal <=200 [facility] Comment on above: Performed By: #### T SH, URIC, CMP, LIPID #### [facility] [address] [address] [address] Candy Cortez Cholesterol in HDL [Mass/Vol] 80 mg/dL Critically high 40-60 [facility] Comment on above: Performed By: #### T SH, URIC, CMP, LIPID #### [facility] [address] [address] [address] Candy Cortez Cholesterol in LDL [Mass/Vol] 43.4 mg/dL Normal [facility] Comment on above: Performed By: #### T SH, URIC, CMP, LIPID #### [facility] [address] [place] [address] Dr. Candy Cortez Cholesterol.total/Ch olesterol in HDL [Mass ratio] 2.2 {ratio} Normal [facility] Comment on above: Performed By: #### T SH, URIC, CMP, LIPID #### [facility] [address] [address] [address] Candy Cortez HDL NORMAL > or = 60 mg/dl - LOW CARDIOVASCULAR RISK <40 mg/dl - HIGH CARDIOVASCULAR RISK Normal [facility] Comment on above: Performed By: #### T SH, URIC, CMP, LIPID #### [facility] [address] [address] [address] Candy Cortez LDL CALC NORMAL SEE BELOW Normal [facility] Comment on above: Result Comment: <100 mg/dl OPTIMAL 100 - 129 mg/dl NEAR OR ABOVE OPTIMAL 130 - 159 mg/dl BORDERLINE HIGH 160 - 189 mg/dl HIGH >190 mg/dl VERY HIGH Performed By: #### T SH, URIC, CMP, LIPID #### [facility] [address] [address] [address] Candy Cortez Triglyceride [Mass/Vol] 273 mg/dL Critically high <=150 [facility] Comment on above: Performed By: #### T SH, URIC, CMP, LIPID #### [facility] [address] [address] [address] Candy Cortez VLDL CALC 54.6 mg/dL Normal [facility] Comment on above: Performed By: #### T SH, URIC, CMP, LIPID #### [facility] [address] [id number] Candy Cortez CBC AUTO DIFFon 01-22-2022 BASO # 0.1 103/ul Normal 0.0-0.1 [facility] Comment on above: Performed By: #### C BC #### [facility] [address] [address] [address] Candy Cortez Basophils/100 WBC (Bld) 1.2 % Normal 0.2-2.0 [facility] Comment on above: Performed By: #### C BC #### [facility] [address] [place] [address] Dr. Candy Cortez EO # 0.2 103/ul Normal 0.0-0.7 [facility] Comment on above: Performed By: #### C BC #### [facility] [address] [place] [address] Dr. Candy Cortez Eosinophils/100 WBC (Bld) 2.8 % Normal 0.9-7.0 [facility] Comment on above: Performed By: #### C BC #### [facility] [address] [place] [address] Dr. Candy Cortez Erythrocyte distribution width (RBC) [Ratio] 12.2 % Normal 11.0-15.0 [facility] Comment on above: Performed By: #### C BC #### [facility] [address] [place] [address] Dr. Candy Cortez Hematocrit (Bld) [Volume fraction] 41.0 % Normal 36.0-48.0 [facility] Comment on above: Performed By: #### C BC #### [facility] [address] [place] [address] Dr. Candy Cortez Hemoglobin (Bld) [Mass/Vol] 13.6 g/dL Normal 12.0-16.0 [facility] Comment on above: Performed By: #### C BC #### [facility] [address] [place] [address] Dr. Candy Cortez IG # 0.00 10e3/ul Normal 0.00-0.03 [facility] Comment on above: Performed By: #### C BC #### [facility] [address] [place] [address] Dr. Candy Cortez IG % 0.0 % Normal 0.0-0.5 [facility] Comment on above: Performed By: #### C BC #### [facility] [address] [place] [address] Dr. Candy Cortez LYMPH # 2.7 103/ul Normal 1.2-3.8 [facility] Comment on above: Performed By: #### C BC #### [facility] [address] [place] [address] Dr. Candy Cortez Lymphocytes/100 WBC (Bld) 47.5 % Normal 20.5-60.0 [facility] Comment on above: Performed By: #### C BC #### [facility] [address] [place] [address] Dr. Candy Cortez MANUAL DIFF REQ NO Normal [facility] Comment on above: Performed By: #### C BC #### [facility] [address] [place] [address] Dr. Candy Cortez MCH (RBC) [Entitic mass] 32.5 pg Normal 26.7-34.0 [facility] Comment on above: Performed By: #### C BC #### [facility] [address] [place] [address] Dr. Candy Cortez MCHC (RBC) [Mass/Vol] 33.2 g/dL Normal 29.9-35.2 [facility] Comment on above: Performed By: #### C BC #### [facility] [address] [place] [address] Dr. Candy Cortez MCV (RBC) [Entitic vol] 97.9 fL Normal 81.0-99.0 [facility] Comment on above: Performed By: #### C BC #### [facility] [address] [address] [address] Candy Cortez MONO # 0.5 103/ul Normal 0.3-0.8 [facility] Comment on above: Performed By: #### C BC #### [facility] [address] [place] [address] Dr. Candy Cortez Monocytes/100 WBC (Bld) 8.4 % Normal 1.7-12.0 [facility] Comment on above: Performed By: #### C BC #### [facility] [address] [place] [address] Dr. Candy Cortez NEUT # 2.3 103/ul Normal 1.4-6.5 [facility] Comment on above: Performed By: #### C BC #### [facility] [address] [place] [address] Dr. Candy Cortez Neutrophils/100 WBC (Bld) 40.1 % Critically low 43.0-75.0 [facility] Comment on above: Performed By: #### C BC #### [facility] [address] [place] [address] Dr. Candy Cortez Platelet mean volume (Bld) [Entitic vol] 11.5 fL Normal 9.5-13.5 [facility] Comment on above: Performed By: #### C BC #### [facility] [address] [place] [address] Dr. Candy Cortez PLT 305 103/ul Normal 150-450 [facility] Comment on above: Performed By: #### C BC #### [facility] [address] [place] [address] Dr. Candy Cortez RBC 4.19 106/ul Critically low 4.20-5.40 [facility] Comment on above: Performed By: #### C BC #### [facility] [address] [place] [address] Dr. Candy Cortez WBC 5.7 103/ul Normal 4.0-11.0 [facility] Comment on above: Performed By: #### C BC #### [facility] [address] [place] [address] Dr. Candy Cortez FREE T4on 01-22-2022 Free T4 [Mass/Vol] 0.78 ng/dL Normal 0.76-1.46 [facility] Comment on above: Performed By: #### T SH, URIC, CMP, LIPID #### [facility] [address] [place] [address] Dr. Cnady Cortez LIPID PROFILEon 01-22-2022 CHOL-HDL RATIO NORM SEE BELOW Normal [facility] Comment on above: Result Comment: 3.3 - 4.4 LOW RISK 4.4 - 7.1 AVERAGE RISK 7.1 - 11.0 MODERATE RISK >11.0 HIGH RISK Performed By: #### T SH, URIC, CMP, LIPID #### [facility] [address] [place] [address] Dr. Candy Cortez Cholesterol [Mass/Vol] 167 mg/dL Normal <=200 [facility] Comment on above: Performed By: #### T SH, URIC, CMP, LIPID #### [facility] [address] [place] [address] Dr. Candy Cortez Cholesterol in HDL [Mass/Vol] 64 mg/dL Critically high 40-60 [facility] Comment on above: Performed By: #### T SH, URIC, CMP, LIPID #### [facility] [address] [place] [address] Dr. Candy Cortez Cholesterol in LDL [Mass/Vol] 43.6 mg/dL Normal [facility] Comment on above: Performed By: #### T SH, URIC, CMP, LIPID #### [facility] [address] [address] [address] Candy Cortez Cholesterol.total/Ch olesterol in HDL [Mass ratio] 2.6 {ratio} Normal [facility] Comment on above: Performed By: #### T SH, URIC, CMP, LIPID #### [facility] [address] [place] [address] Dr. Candy Cortez HDL NORMAL > or = 60 mg/dl - LOW CARDIOVASCULAR RISK <40 mg/dl - HIGH CARDIOVASCULAR RISK Normal [facility] Comment on above: Performed By: #### T SH, URIC, CMP, LIPID #### [facility] [address] [address] [address] Candy Cortez LDL CALC NORMAL SEE BELOW Normal [facility] Comment on above: Result Comment: <100 mg/dl OPTIMAL 100 - 129 mg/dl NEAR OR ABOVE OPTIMAL 130 - 159 mg/dl BORDERLINE HIGH 160 - 189 mg/dl HIGH >190 mg/dl VERY HIGH Performed By: #### T SH, URIC, CMP, LIPID #### [facility] [address] [address] [address] Candy Cortez Triglyceride [Mass/Vol] 297 mg/dL Critically high <=150 [facility] Comment on above: Performed By: #### T SH, URIC, CMP, LIPID #### [facility] [address] [address] [address] Candy Cortez VLDL CALC 59.4 mg/dL Normal [facility] Comment on above: Performed By: #### T SH, URIC, CMP, LIPID #### [facility] [address] [place] [address] Dr. Candy Crotez PROF 14(COMP METB)on 022 Albumin [Mass/Vol] 3.6 g/dL Normal 3.4-5.0 [facility] Comment on above: Performed By: #### T SH, URIC, CMP, LIPID #### [facility] [address] [place] [address] Dr. Candy Cortez Albumin/Globulin [Mass ratio] 1.0 {ratio} Normal [facility] Comment on above: Performed By: #### T SH, URIC, CMP, LIPID #### [facility] [address] [place] [address] Dr. Candy Cortez ALP [Catalytic activity/Vol] 79 U/L Normal 46-116 [facility] Comment on above: Performed By: #### T SH, URIC, CMP, LIPID #### [facility] [address] [place] [address] Dr. Candy Cortez ALT [Catalytic activity/Vol] 23 U/L Normal 14-59 [facility] Comment on above: Performed By: #### T SH, URIC, CMP, LIPID #### [facility] [address] [place] [address] Dr. Candy Cortez Anion gap [Moles/Vol] 9.7 mmol/L Normal [facility] Comment on above: Performed By: #### T SH, URIC, CMP, LIPID #### [facility] [address] [address] [address] Candy Cortez AST [Catalytic activity/Vol] 20 U/L Normal 15-37 [facility] Comment on above: Performed By: #### T SH, URIC, CMP, LIPID #### [facility] [address] [address] [address] Candy Cortez Bilirubin [Mass/Vol] 0.4 mg/dL Normal 0.2-1.0 [facility] Comment on above: Performed By: #### T SH, URIC, CMP, LIPID #### [facility] [address] [address] [address] Candy Cortez Calcium [Mass/Vol] 9.1 mg/dL Normal 8.5-10.1 [facility] Comment on above: Performed By: #### T SH, URIC, CMP, LIPID #### [facility] [address] [address] [address] Candy Cortez Chloride [Moles/Vol] 103 mmol/L Normal 98-107 [facility] Comment on above: Performed By: #### T SH, URIC, CMP, LIPID #### [facility] [address] [address] [address] Candy Cortez CO2 [Moles/Vol] 29.0 mmol/L Normal 21.0-32.0 [facility] Comment on above: Performed By: #### T SH, URIC, CMP, LIPID #### [facility] [address] [address] [address] Candy Cortez Creatinine [Mass/Vol] 0.72 mg/dL Normal 0.55-1.02 [facility] Comment on above: Performed By: #### T SH, URIC, CMP, LIPID #### [facility] [address] [address] [address] Candy Cortez EGFR-AF PAKISTANI >60 Normal >=60 [facility] Comment on above: Performed By: #### T SH, URIC, CMP, LIPID #### [facility] [address] [place] [address] Dr. Candy Cortez EGFR-NON AF PAKISTANI >60 Normal >=60 [facility] Comment on above: Performed By: #### T SH, URIC, CMP, LIPID #### [facility] [address] [place] [address] Dr. Candy Cortez Globulin (S) [Mass/Vol] 3.7 g/dL Normal [facility] Comment on above: Performed By: #### T SH, URIC, CMP, LIPID #### [facility] [address] [place] [address] Dr. Candy Cortez Glucose [Mass/Vol] 93 mg/dL Normal 74-106 [facility] Comment on above: Performed By: #### T SH, URIC, CMP, LIPID #### [facility] [address] [place] [address] Dr. Candy Cortez Potassium [Moles/Vol] 4.7 mmol/L Normal 3.5-5.1 [facility] Comment on above: Performed By: #### T SH, URIC, CMP, LIPID #### [facility] [address] [place] [address] Dr. Candy Cortez Protein [Mass/Vol] 7.3 g/dL Normal 6.4-8.2 [facility] Comment on above: Performed By: #### T SH, URIC, CMP, LIPID #### [facility] [address] [place] [address] Dr. Candy Cortez Sodium [Moles/Vol] 137 mmol/L Normal 136-145 [facility] Comment on above: Performed By: #### T SH, URIC, CMP, LIPID #### [facility] [address] [place] [address] Dr. Candy Cortez Urea nitrogen [Mass/Vol] 12.0 mg/dL Normal 7.0-18.0 [facility] Comment on above: Performed By: #### T SH, URIC, CMP, LIPID #### [facility] [address] [place] [address] Dr. Candy Cortez Urea nitrogen/Creatinine [Mass ratio] 16.7 mg/mg Normal [facility] Comment on above: Performed By: #### T SH, URIC, CMP, LIPID #### [facility] [address] [place] [address] Dr. Candy Cortez TSHon 01-22-2022 TSH 0.748 uIU/mL Normal 0.358-3.740 [facility] Comment on above: Performed By: #### T SH, URIC, CMP, LIPID #### [facility] [address] [place] [address] Dr. Candy Cortez UA RANDOM W/MICROSCOPICon BACTERIA NONE SEEN Normal NONE SEEN [facility] Comment on above: Performed By: #### U AMIC #### [facility] [address] [place] [address] Dr. Candy Cortez Bilirubin Ql (U) Negative Normal NEGATIVE [facility] Comment on above: Performed By: #### U AMIC #### [facility] [address] [place] [address] Dr. Candy Cortez CAST NONE SEEN Normal NONE SEEN [facility] Comment on above: Performed By: #### U AMIC #### [facility] [address] [place] [address] Dr. Candy Cortez Clarity (U) CLEAR Normal CLEAR [facility] Comment on above: Performed By: #### U AMIC #### [facility] [address] [place] [address] Dr. Candy Cortez Color (U) LT. YELLOW Normal YELLOW [facility] Comment on above: Performed By: #### U AMIC #### [facility] [address] [place] [address] Dr. Candy Cortez Crystals LM Nom (Urine sed) NONE SEEN Normal NONE SEEN [facility] Comment on above: Performed By: #### U AMIC #### [facility] [address] [place] [address] Dr. Candy Cortez Epithelial cells LM Ql (Urine sed) RARE Normal NONE SEEN /RARE [facility] Comment on above: Performed By: #### U AMIC #### [facility] [address] [address] [address] Candy Cortez Glucose Ql (U) Negative Normal NEGATIVE [facility] Comment on above: Performed By: #### U AMIC #### [facility] [address] [address] [address] Candy Cortez Hemoglobin Ql (U) Negative Normal NEGATIVE [facility] Comment on above: Performed By: #### U AMIC #### [facility] [address] [address] [address] Candy Cortez Ketones Ql (U) Negative Normal NEGATIVE [facility] Comment on above: Performed By: #### U AMIC #### [facility] [address] [address] [address] Candy Cortez LEUKOCYTES Negative Normal NEGATIVE [facility] Comment on above: Performed By: #### U AMIC #### [facility] [address] [address] [address] Candy Cortez MUCOUS TRACE Abnormal NONE SEEN [facility] Comment on above: Performed By: #### U AMIC #### [facility] [address] [address] [address] Candy Cortez Nitrite Ql (U) Negative Normal NEGATIVE [facility] Comment on above: Performed By: #### U AMIC #### [facility] [address] [address] [address] Candy Cortez pH (U) 7.0 [pH] Normal 5-9 [facility] Comment on above: Performed By: #### U AMIC #### [facility] [address] [address] [address] Candy Cortez RBC NONE SEEN Abnormal 0-2 [facility] Comment on above: Performed By: #### U AMIC #### [facility] [address] [address] [address] Candy Cortez SPEC GRAVITY 1.020 Normal 1.005-<=1.025 [facility] Comment on above: Performed By: #### U AMIC #### [facility] [address] [address] [address] Candy Cortez UA PROTEIN Negative Normal NEGATIVE/ TRACE [facility] Comment on above: Performed By: #### U AMIC #### [facility] [address] [place] [address] Dr. Candy Cortez Urobilinogen Qn (U) 0.2 {Nicko'U}/dL Normal 0.2 - 1. 0 [facility] Comment on above: Performed By: #### U AMIC #### [facility] [address] [place] [address] Dr. Candy Cortez WBC NONE SEEN Normal NONE SEEN [facility] Comment on above: Performed By: #### U AMIC #### [facility] [address] [place] [address] Dr. Candy Cortez URIC ACID SERUMon 01-22-2022 Urate [Mass/Vol] 3.1 mg/dL Normal 2.6-6.0 [facility] Comment on above: Performed By: #### T SH, URIC, CMP, LIPID #### [facility] [address] [place] [address] Dr. Candy Cortez Vital Signs Date Time Vital Sign Value Performing Clinician Faci lity 03-26-2024 15:21-0500 Body height 162.6 cm Den Olga DO Work Phone: [facility] 03-26-2024 15:21-0500 Body mass index (BMI) [Ratio] 27.33 kg/m2 Den Olga DO Work Phone: [facility] 03-26-2024 15:21-0500 Body weight 72.21 kg Den Olga DO Work Phone: [facility] 03-26-2024 15:21-0500 Diastolic blood pressure 88 mm[Hg] Den Olga DO Work Phone: [facility] 03-26-2024 15:21-0500 Heart rate 78 /min Den Olga DO Work Phone: [facility] 03-26-2024 15:21-0500 SaO2% (BldA) [Mass fraction] 98 % Den Olga DO Work Phone: [facility] 03-26-2024 15:21-0500 Systolic blood pressure 136 mm[Hg] Den Espinoza DO Work Phone: [facility] 01-16-2024 10:52-0500 Body height 162.56 cm Carmela Aichholz Work Phone: [facility] 01-16-2024 10:52-0500 Body mass index (BMI) [Ratio] 27 kg/m2 Carmela Aichholz Work Phone: [facility] 01-16-2024 10:52-0500 Body weight 71.44 kg Carmela Aichholz Work Phone: [facility] 12-26-2023 10:03-0400 Body height 162.56 cm Carmela Aichholz Work Phone: [facility] 12-26-2023 10:03-0400 Body mass index (BMI) [Ratio] 26.9 kg/m2 Carmela Aichholz Work Phone: [facility] 12-26-2023 10:03-0400 Body weight 71.32 kg Carmela Aichholz Work Phone: [facility] 12-01-2023 12:58-0400 Body height 162.56 cm Carmela Aichholz Work Phone: [facility] 12-01-2023 12:58-0400 Body mass index (BMI) [Ratio] 27 kg/m2 Carmela Aichholz Work Phone: [facility] 12-01-2023 12:58-0400 Body weight 71.38 kg Carmela Aichholz Work Phone: [facility] 10-27-2023 13:18-0400 Body weight 70.76 kg Carmela Aichholz Work Phone: [facility] 10-06-2023 14:11-0400 Body weight 70.76 kg [facility] Encounters Encounter Date Encounter Type Care Provider Facility Start: 08-20-2024 End: 08-20-2024 Refill Carmela Lester CRIMINAL ATTORNEY Work Phone: [facility] Comment on above: Essential hypertensi on (CMS/HCC); Primary hypertension (CMS/HCC); 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 (CMS/HCC); Hypothyroidism (acquired) (CMS/HCC) Start: 07-09-2024 End: 07-09-2024 ambulatory Nikki Gayle MD Facility: [facility] Start: 06-04-2024 End: 06-04-2024 ambulatory [facility] Start: 04-09-2024 End: 04-09-2024 Patient encounter [...] Start: 03-26-2024 End: 03-26-2024 Bamboo flowsheet Den Espinoza DO Work Phone: [facility] Start: 03-26-2024 End: 03-26-2024 Bamboo flowsheet Den Espinoza DO Work Phone: [facility] Start: 03-13-2024 End: 03-14-2024 Refill Carmela Trevon CRIMINAL ATTORNEY Work Phone: [facility] Comment on above: Essential hypertensi on ([facility]) Start: 03-02-2024 End: 03-02-2024 ambulatory Milton Appiah Facility:[facility] Start: 02-29-2024 End: 02-29-2024 Refill Carmela Codyz CRIMINAL ATTORNEY Work Phone: [facility] Comment on above: Coronary artery 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 of lower sioux heart without angina pectoris ([facility]) Start: 02-07-2024 End: 02-08-2024 Telephone encounter Carmela Codyz CRIMINAL ATTORNEY Work Phone: [facility] Start: 02-01-2024 End: 02-01-2024 Patient encounter procedure Carmela Toshiaholz Work Phone: [facility] Work Phone: Start: 02-01-2024 End: 02-01-2024 ambulatory Carmela Lester Work Phone: [facility] Work Phone: Start: 01-16-2024 End: 01-16-2024 Patient encounter procedure Carmela Popeholz Work Phone: [facility] Work Phone: Start: 01-13-2024 End: 01-13-2024 Patient encounter procedure Carmela Toshiaholz Work Phone: [facility] [place] Work Phone: Start: 01-13-2024 End: 01-13-2024 ambulatory Carmela Karlene Popeholz Work Phone: [facility] Work Phone: Start: 12-26-2023 End: 12-26-2023 ambulatory Carmela J Aicjaneholz Work Phone: [facility] Work Phone: Start: 12-26-2023 End: 12-26-2023 Patient encounter procedure Carmela Toshiaholz Work Phone: [facility] Work Phone: Start: 12-12-2023 End: 12-12-2023 ambulatory Nikki Gayle MD Facility:[facility] Start: 12-01-2023 End: 12-01-2023 ambulatory Carmela Karlene Aichholz Work Phone: [facility] Work Phone: Start: 12-01-2023 End: 12-01-2023 Patient encounter procedure Carmela Toshiaholz Work Phone: [facility] Work Phone: Start: 11-24-2023 End: 11-25-2023 Refill Carmela Aichholz CRIMINAL ATTORNEY Work Phone: [facility] Comment on above: Coronary artery 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 of lower sioux heart without angina pectoris (CMS/HCC) Start: 11-22-2023 End: 11-22-2023 Refill Carmela Aichholz CRIMINAL ATTORNEY Work Phone: [facility] Comment on above: Coronary artery 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 of lower sioux heart without angina pectoris (CMS/HCC); Neuropathy; Essential hypertension (CMS/HCC); Hypothyroidism (acquired) (CMS/HCC); Primary hypertension (CMS/HCC); Trapezius muscle spasm Start: 11-21-2023 End: 11-21-2023 ambulatory Nikki Gayle MD Facility:[facility] Start: 10-31-2023 End: 10-31-2023 ambulatory Nikki Gayle MD Facility:[facility] Start: 10-27-2023 End: 10-27-2023 ambulatory Carmela Rossz Work Phone: [facility] Work Phone: Start: 10-27-2023 End: 10-27-2023 Patient encounter procedure Carmelaazalia Popeholz Work Phone: [facility] Work Phone: Start: 10-27-2023 End: 10-27-2023 Patient encounter procedure Carmela Toshiaholz Work Phone: [facility] Work Phone: Start: 10-27-2023 End: 10-27-2023 ambulatory Carmela Popeholz Work Phone: [facility] Work Phone: Start: 10-06-2023 End: 10-06-2023 ambulatory [place] Work Phone: Start: 10-06-2023 End: 10-06-2023 Patient encounter procedure [facility] Work Phone: Start: 09-29-2023 End: 09-29-2023 ambulatory ASHUTOSH QUINTANA Not Available Start: 09-07-2023 End: 09-07-2023 ambulatory CARMELA AICHHOLZ Not Available Start: 07-11-2023 End: 07-11-2023 ambulatory CARMELA AICHHOLZ Not Available Start: 06-08-2023 End: 06-08-2023 ambulatory [facility] Start: 05-30-2023 End: 05-30-2023 ambulatory CARMELA AICHHOLZ Not Available Start: 05-10-2023 End: 05-10-2023 ambulatory CARMELA AICHHOLZ Not Available Start: 07-22-2022 End: 07-23-2022 ambulatory DEREK LESTER Facility:[facility] Start: 07-05-2022 End: 07-06-2022 ambulatory [employer] CARMELA LESTER Facility:[facility] Start: 05-10-2022 End: 05-11-2022 ambulatory DEREK LESTER Facility:[facility] Start: 01-22-2022 End: 01-23-2022 ambulatory DEREK LESTER Facility:[facility] Procedures Date Procedure Procedure Detail Performing Clinician Start: 04-09-2024 End: 04-09-2024 Needle emg ea extremty w/paraspinl area complete Den Olga DO Work Phone: Start: 03-31-2024 ALL FOLIC ACID Den tello DO Work Phone: Start: 01-13-2024 MRI of cervical spin e without contrast Carmela Popeinocencio Work Phone: Start: 10-27-2023 X-ray of cervical spine Carmela Trevon Work Phone: Plan of Treatment Date Care Activity Detail Author Start: 02-25-2026 Screening for malignant neoplasm of colon [facility] Start: 11-12-2024 Influenza vaccination Influenza Vaccine (Season Ended) [facility] Start: 09-11-2024 End: 09-11-2024 Patient encounter procedure 09/11/2024 2:20 PM EDT Office Visit [facility] [address] [place] [id number] Carmela Lester NP [address] [place] [address] [facility] Start: 08-20-2024 End: 08-20-2025 CBC W Auto Differential panel - Blood CBC and differential Lab Routine 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 (CMS/HCC) Expected: 08/20/2024 (Approximate), Expires: 08/20/2025 [facility] Work Phone: Comment on above: Expected: 08/20/2024 (Approximate), Expi res: 08/20/2025 Start: 08-20-2024 End: 08-20-2025 Comprehensive metabolic 2000 panel - Serum or Plasma Comprehensive metabolic panel Lab Routine Essential hypertension (CMS/HCC) 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 (CMS/HCC) Expected: 08/20/2024 (Approximate), Expires: 08/20/2025 [facility] Comment on above: Expected: 08/20/2024 (Approximate), Expi res: 08/20/2025 Start: 08-20-2024 End: 08-20-2025 Lipid 1996 panel - Serum or Plasma Lipid panel Lab Routine 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 (CMS/HCC) Expected: 08/20/2024 (Approximate), Expires: 08/20/2025 [facility] Comment on above: Expected: 08/20/2024 (Approximate), Expi res: 08/20/2025 Start: 08-20-2024 End: 08-20-2025 Microalbumin/Creatinine panel in random Urine Microalbumin / creatinine, urine ratio Lab Routine Essential hypertension (CMS/HCC) Expected: 08/20/2024 (Approximate), Expires: 08/20/2025 [facility] Comment on above: Expected: 08/20/2024 (Approximate), Expi res: 08/20/2025 Start: 08-20-2024 End: 08-20-2025 Thyrotropin [Units/volume] in Serum or Plasma TSH Lab Routine Hypothyroidism (acquired) ([facility]) Expected: 08/20/2024 (Approximate), Expires: 08/20/2025 [facility] Comment on above: Expected: 08/20/2024 (Approximate), Expi res: 08/20/2025 Start: 08-20-2024 End: 08-20-2025 Thyroxine (T4) free [Mass/volume] in Serum or Plasma T4, free Lab Routine Hypothyroidism (acquired) ([facility]) Expected: 08/20/2024 (Approximate), Expires: 08/20/2025 [facility] Comment on above: Expected: 08/20/2024 (Approximate), Expi res: 08/20/2025 Start: 08-20-2024 End: 08-20-2025 Urinalysis complete panel - Urine Urinalysis with reflex microscopic (clean catch) Lab Routine Essential hypertension (CMS/HCC) Expected: 08/20/2024 (Approximate), Expires: 08/20/2025 [facility] Comment on above: Expected: 08/20/2024 (Approximate), Expi res: 08/20/2025 Start: 05-23-2024 End: 05-23-2024 Patient encounter procedure 05/23/2024 1:15 PM EDT Office Visit [facility] [address] [place] [id number] Den Espinoza, DO [address] [place] [address] [facility] Start: 05-17-2024 End: 05-17-2024 Patient encounter procedure 05/17/2024 1:15 PM EST Office Visit [facility] [address] [place] [phone] Den Espinoza, DO [address] [place] [address] [facility] Start: 04-09-2024 End: 04-09-2024 Patient encounter procedure [facility] Comment on above: Arrived Start: 03-26-2024 End: 03-26-2024 Patient encounter procedure JEFFREYStephen [address] Comment on above: Arrived Start: 03-26-2024 End: 03-26-2025 Cobalamin (Vitamin B12) [Mass/volume] in Serum or Plasma Vitamin B12 Lab Routine Idiopathic peripheral neuropathy Expected: 03/26/2024 (Approximate), Expires: 03/26/2025 [facility] Work Phone: Comment on above: Expected: 03/26/2024 (Approximate), Expi res: 03/26/2025 Start: 03-26-2024 End: 03-26-2025 EMG 2 Extremities EMG 2 Extremities Neurology Routine Idiopathic peripheral neuropathy Expected: 03/26/2024 (Approximate), Expires: 03/26/2025 [facility] Comment on above: Expected: 03/26/2024 (Approximate), Expi res: 03/26/2025 Start: 03-26-2024 End: 03-26-2025 Folate [Mass/volume] in Serum or Plasma Folate Lab Routine Idiopathic peripheral neuropathy Expected: 03/26/2024 (Approximate), Expires: 03/26/2025 [facility] Comment on above: Expected: 03/26/2024 (Approximate), Expi res: 03/26/2025 Start: 03-26-2024 End: 03-26-2025 Nuclear Ab [Titer] in Serum by Immunofluorescence [facility] Lab Routine Idiopathic peripheral neuropathy Expected: 03/26/2024 (Approximate), Expires: 03/26/2025 [facility] Comment on above: Expected: 03/26/2024 (Approximate), Expi res: 03/26/2025 Start: 03-26-2024 End: 03-26-2025 NVC 9-10 Nerves NVC 9-10 Nerves Neurology Routine Idiopathic peripheral neuropathy Expected: 03/26/2024 (Approximate), Expires: 03/26/2025 [facility] Comment on above: Expected: 03/26/2024 (Approximate), Expi res: 03/26/2025 Start: 03-26-2024 End: 03-26-2025 Protein electrophoresis, serum Protein electrophoresis, serum Lab Routine Idiopathic peripheral neuropathy Expected: 03/26/2024 (Approximate), Expires: 03/26/2025 [facility] Comment on above: Expected: 03/26/2024 (Approximate), Expi res: 03/26/2025 Start: 03-26-2024 End: 03-26-2025 Rheumatoid factor [Units/volume] in Serum or Plasma Rheumatoid factor Lab Routine Idiopathic peripheral neuropathy Expected: 03/26/2024 (Approximate), Expires: 03/26/2025 [facility] Comment on above: Expected: 03/26/2024 (Approximate), Expi res: 03/26/2025 Start: 03-20-2024 End: 03-20-2024 Patient encounter procedure 03/20/2024 1:20 PM EST Office Visit [facility] [address] [place] [address] Carmela Lester NP [address] [place] [address] [facility] Start: 11-13-2023 Influenza vaccination Influenza Vaccine (#1) [facility] Start: 10-27-2023 X-ray of cervical spine XR cerv spine AP/LAT/FLX/EXT [facility] Start: 10-27-2023 XR Cervical spine 4 Views [facility] Start: 10-06-2023 Patient referral [facility] Work Phone: Start: 2001 Screening for malignant neoplasm of cervix HPV/Cotest [facility] Start: 02-28-1992 Screening for malignant neoplasm of cervix Pap Smear [facility] Start: 1971 Screening for malignant neoplasm of colon [facility] Electromyography [facility] MR Cervical spine WO contrast [facility] Patient referral [facility] Work Phone: XR Cervical spine 4 Views [facility] Immunizations Immunization Date Immunization Notes Care Provider Fa [facility] 11-04-2022 influenza, injectabl e, quadrivalent, preservative free Carmela Aichholz CRIMINAL ATTORNEY Work Phone: [facility] 11-04-2022 Pneumococcal Conjuga te PCV 20 Carmela Aichholz CRIMINAL ATTORNEY Work Phone: [facility] 11-04-2022 influenza virus vacc ine, unspecified formulation Carmela Aichholz CRIMINAL ATTORNEY Work Phone: [facility] 01-01-2022 influenza, injectabl e, quadrivalent, preservative free Carmela Aichholz CRIMINAL ATTORNEY Work Phone: [facility] 01-03-2021 influenza, injectabl e, quadrivalent, preservative free Carmela Aichholz CRIMINAL ATTORNEY Work Phone: [facility] 12-11-2019 influenza, injectabl e, quadrivalent, preservative free Carmela Aichholz CRIMINAL ATTORNEY Work Phone: [facility] 11-03-2018 influenza, injectabl e, quadrivalent, preservative free Carmela Aichholz CRIMINAL ATTORNEY Work Phone: [facility] 11-03-2018 pneumococcal polysaccharide vaccine, 23 valent Carmela Lester CRIMINAL ATTORNEY Work Phone: [facility] 12-23-2017 influenza, injectabl e, quadrivalent, preservative free Carmela Lester CRIMINAL ATTORNEY Work Phone: [facility] Payers Date Payer Category Payer Self-pay 2022 Private Health Insurance [employer] [id number] 2022 Unknown [id number] 1971 Unknown [id number] 2.16.840.1.621525.3.579.2. 593 1971 Unknown [id number] 2.16.840.1.067099.3.579.2. 593 1971 Unknown [id number] 2.16.840.1.992961.3.579.2. 593 1971 Unknown [id number] 2.16.840.1.930627.3.579.2. 593 1971 Unknown [id number] 2.16.840.1.596915.3.579.2. 1259 1971 Unknown [id number] 2.16.840.1.563838.3.579.2. 1259 1971 Unknown [id number] 2.16.840.1.433069.3.579.2. 1259 1971 Unknown [id number] 2.16.840.1.978181.3.579.2. 1259 1971 Unknown [id number] 2.16.840.1.373939.3.579.2. 1259 1971 Unknown [id number] 2.16.840.1.706645.3.579.2. 1259 1971 Unknown [id number] 2.16.840.1.222618.3.579.2. 1259 1971 Unknown [id number] 2.16.840.1.087834.3.579.2. 196 1971 Unknown [id number] 2.16.840.1.401045.3.579.2. 196 1971 Unknown [id number] 2.16.840.1.961023.3.579.2. 196 1971 Unknown [id number] 2.16.840.1.576817.3.579.2. 196 1959 Unknown [id number] Unknown [id number] 2.16.840.1.787102.3.579.2. 531 Unknown [id number] 2.16.840.1.509977.3.579.2. 531 Unknown [id number] 2.16.840.1.106470.3.579.2. 531 Unknown [id number] 2.16.840.1.660834.3.579.2. 531 Social History Date Type Detail [facility] Work Phone: Start: 1970 Sex Assigned At Female F [facility] Work Phone: Start: 02-02-2024 Sex Patient sex un known (finding) [facility] Start: 02-07-2023 Tobacco smoking stat [facility] Smokes tobacco daily [facility] History of tobacco use Cigarette Smoker [facility] Start: 02-07-2023 End: 05-10-2023 Cigarettes smoked current (pack per day) - Reported 1 [facility] Start: 09-07-2023 End: 03-26-2024 Alcoholic beverage intake Lifetime non-drinker (finding) [facility] Start: 05-10-2023 End: 09-07-2023 Tobacco use panel [facility] Start: 1970 Sex assigned at Not on file [facility] Start: 03-26-2024 Tobacco smoking stat [facility] Ex-smoker [facility] History of tobacco use Current smoker [facility] Start: 03-26-2024 Tobacco use and exposure Smokeless tobacco non-user [facility] Clinical Notes 06-08-2023 to 08-20-2024 Telephone Encounter - Carmela Lester NP - 08/20/2024 11:19 AM EDTTelephone Encounter - Carmela Lester NP - 08/20/2024 11:19 AM OSCARTELIS HarrisonT - 04/09/2024 4:00 PM EST Note Date & Type Note Facility 08-20-2024 Telephone encounter Note Please contact the patient, I just sent in 90 day supply of her meds, she needs fasting labs completed. I have not seen her in over 12 months. I did a favor by filling meds, but if she cancels or misses her appt, I will not give her any refills until seen in office. She also is way over due of her thyroid and cholesterol labs urine etc. I printed an order please getting this completed CICI [place] [facility] 08-20-2024 Miscellaneous Notes Please contact the patient, I just sent in 90 day supply of her meds, she needs fasting labs completed. I have not seen her in over 12 months. I did a favor by filling meds, but if she cancels or misses her appt, I will not give her any refills until seen in office. She also is way over due of her thyroid and cholesterol labs urine etc. I printed an order please getting this completed CICI [place] documented in this encounter [facility] 06-04-2024 Note [facility] Cardiology Clinic Note Chief Complaint: Patient here [...] management; add calc (more content not included)... [facility] 04-09-2024 History of Present illness Narrative Images from the original note were not included. Reason for Appointment: EMG Patient: Diane Blue Missael : 1970 EMG Computer: [employer] Referring Physician: Dr. Den Espinoza EMG: [facility] fabric worker leader: Walker Nicole RT(R) Office Location: [place] Reason for EMG: c/o numbness/tingling in bilateral feet/lower legs, low back pain that radiates down bilateral legs L>R. Hx of surgery to left ankle. No hx of DM. Taking ASA. Comments: Procedure was explained to the patient who expressed understanding. Patient appeared to have tolerated the test well despite some discomfort due to the nature of the test. documented in this encounter [facility] 03-26-2024 History of Present illness Narrative Images from the original note were not included. Chief Complaint Patient presents with Numbness Tingling Subjective Diane Canas, 54 y.o., female HPI Paresthesia of skin - EMG @ [facility] as well as our office, [...] symptoms. She had EMG here and at [facility]. Borderline right CTS. She had the EMG 2020 BLE She is on the neurontin 900mb bid Past Medical History: Diagnosis Date Abnormal ankle brachial index (LYSSA) 05/10/2023 Asymptomatic microscopic hematuria 05/10/2023 Back pain, chronic 05/10/2023 Bilateral hand pain 05/10/2023 Bronchitis 02/07/2023 CAD (coronary artery disease) ([facility]) 05/10/2023 Closed traumatic minimally displaced fracture of proximal end of fibula with routine healing 05/10/2023 Fatigue GERD (gastroesophageal reflux disease) 05/10/2023 Gout 05/09/2023 History of irregular menstrual cycles Hyperlipidemia ([facility]) Joint pain Left ankle pain Loud snoring 05/10/2023 Lumbosacral radiculopathy at S1 05/10/2023 Menorrhagia 05/10/2023 Myocardial infarction ([facility]) 05/10/2023 Neuropathy 05/10/2023 Paresthesia of foot Peripheral artery disease ([facility]) 05/10/2023 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[facility]) 05/10/2023 Seasonal allergies 05/10/2023 Tobacco user [...] upper extremity in September most recently at [facility] that was not entirely convincing [...] clinic: 3 weeks documented in this encounter [facility] 02-07-2024 Telephone encounter Note Please call and schedule a fu appt for pt [place] [facility] 02-07-2024 Miscellaneous Notes Please call and schedule a fu appt for pt [place] documented in this encounter [facility] 12-01-2023 Evaluation note Diagnosis Onset Date Resolution Arm pain acute November 12:52pm Cervical radiculopathy acute Se ptember 2023 12:52pm Neck pain acute November 12:52pm Cervical radiculopathy acute Oc tober 2023 9:58am Ulnar neuropathy at elbow acute January 15 10:50am [facility] Work Phone: [phone] 456-330103-27-2024 [facility] Chief Complaint: [...] he is to underg (more content not included)...[facility] Evaluation noteNo assessment information [facility]: evaluation note* Diagnosis Onset Date Resolution Status Arm pain acute Cervical radiculopathy acute Ulnar neuropathy at elbow ac [place] Arm pain acute Neck pain acute Ulnar neuropathy at elbow ac [place] [facility] Work Phone: Evaluation note* Diagnosis Onset Date Resolution Status Arm pain acute Cervical radiculopathy acute Ulnar neuropathy at elbow ac [place] Arm pain acute Neck pain acute Ulnar neuropathy at elbow ac [place] Arm pain acute Cervical radiculopathy acute Neck pain acute Cervical radiculopathy acute [facility] Work Phone: Evaluation note* Diagnosis Onset Date Resolution Status Arm pain acute Neck pain acute Ulnar neuropathy at elbow ac [place] Arm pain acute Cervical radiculopathy acute Neck pain acute Cervical radiculopathy acute [facility] Work Phone: Evaluation note* Diagnosis 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 (CMS/HCC) [facility] Diagnosis Colon cancer screening- Primary Special screening for malignant neoplasms, colon Atherosclerosis of lower sioux coronary artery without angina pectoris, unspecified whether lower sioux or transplanted heart (CMS/HCC) Essential hypertension (CMS/HCC) Unspecified essential hypertension Hypothyroidism (acquired) (CMS/HCC) Unspecified hypothyroidism Idiopathic gout, unspecified chronicity, unspecified site Bronchitis Bronchitis, not specified as acute or chronic Essential hypertension (CMS/HCC)- Primary Unspecified essential hypertension 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 (CMS/HCC) Trapezius muscle spasm Tobacco user Tobacco use disorder Essential hypertension (CMS/HCC)- Primary Unspecified essential hypertension 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 (CMS/HCC) Trapezius muscle spasm Tobacco user Tobacco use disorder Cervical neck pain with evidence of disc disease- Primary Other and unspecified disc disorder of cervical region Trapezius muscle spasm Tobacco user Tobacco use disorder Cervical stenosis of spinal canal- Primary Spinal stenosis in cervical region Cervical radiculopathy Brachial neuritis or radiculitis nos 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 (CMS/HCC) [facility] Diagnosis 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 (CMS/HCC) Neuropathy Mononeuritis of unspecified site Essential hypertension (CMS/HCC) Unspecified essential hypertension Hypothyroidism (acquired) (CMS/HCC) Unspecified hypothyroidism Primary hypertension (CMS/HCC) Unspecified essential hypertension Trapezius muscle spasm [facility] Diagnosis Colon cancer screening- Primary Special screening for malignant neoplasms, colon Atherosclerosis of lower sioux coronary artery without angina pectoris, unspecified whether lower sioux or transplanted heart (CMS/HCC) Essential hypertension (CMS/HCC) Unspecified essential hypertension Hypothyroidism (acquired) (CMS/HCC) Unspecified hypothyroidism Idiopathic gout, unspecified chronicity, unspecified site Bronchitis Bronchitis, not specified as acute or chronic Essential hypertension (CMS/HCC)- Primary Unspecified essential hypertension 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 (CMS/HCC) Trapezius muscle spasm Tobacco user Tobacco use disorder Essential hypertension (CMS/HCC)- Primary Unspecified essential hypertension 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 (CMS/HCC) Trapezius muscle [...] screening for malignant neoplasms, colon Atherosclerosis of lower sioux coronary artery without angina pectoris, unspecified whether lower sioux or transplanted heart (CMS/HCC) Essential hypertension (CMS/HCC) Unspecified essential hypertension Hypothyroidism (acquired) (CMS/HCC) Unspecified hypothyroidism Idiopathic gout, unspecified chronicity, unspecified site Bronchitis Bronchitis, not specified as acute or chronic Essential hypertension (CMS/HCC)- Primary Unspecified essential hypertension 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 (CMS/HCC) Trapezius muscle spasm Tobacco user Tobacco use disorder Essential hypertension (CMS/HCC)- Primary Unspecified essential hypertension 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 (CMS/HCC) Trapezius muscle [...] screening for malignant neoplasms, colon Atherosclerosis of lower si[place] coronary artery without angina pectoris, unspecified whether lower sioux or transplanted heart (CMS/HCC) Essential hypertension (CMS/HCC) Unspecified essential hypertension Hypothyroidism (acquired) (CMS/HCC) Unspecified hypothyroidism Idiopathic gout, unspecified chronicity, unspecified site Bronchitis Bronchitis, not specified as acute or chronic Essential hypertension (CMS/HCC)- Primary Unspecified essential hypertension 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 (CMS/HCC) Trapezius muscle spasm Tobacco user Tobacco use disorder Essential hypertension (CMS/HCC)- Primary Unspecified essential hypertension 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 (CMS/HCC) Trapezius muscle [...] idiopathic peripheral neuropathy documented in this encounter [facility]* Diagnosis Colon cancer screening- Primary Special screening for malignant neoplasms, colon Atherosclerosis of lower sioux coronary artery without angina pectoris, unspecified whether lower sioux or transplanted heart (CMS/HCC) Essential hypertension (CMS/HCC) Unspecified essential hypertension Hypothyroidism (acquired) (CMS/HCC) Unspecified hypothyroidism Idiopathic gout, unspecified chronicity, unspecified site Bronchitis Bronchitis, not specified as acute or chronic Essential hypertension (CMS/HCC)- Primary Unspecified essential hypertension 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 (CMS/HCC) Trapezius muscle spasm Tobacco user Tobacco use disorder Essential hypertension (CMS/HCC)- Primary Unspecified essential hypertension 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 (CMS/HCC) Trapezius muscle spasm Tobacco user Tobacco use disorder Cervical neck pain with evidence of disc disease- Primary Other and unspecified disc disorder of cervical region Trapezius muscle spasm Tobacco user Tobacco use disorder Cervical stenosis of spinal canal- Primary Spinal stenosis in cervical region Cervical radiculopathy Brachial neuritis or radiculitis nos Essential hypertension (CMS/HCC) Unspecified essential hypertension Primary hypertension (CMS/HCC) Unspecified essential hypertension 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 (CMS/HCC) Hypothyroidism (acquired) (CMS/HCC) Unspecified hypothyroidism documented in this encounter [facility]Hospital Discharge instructionsAmbulatory Orders* Referral to Pain Management Location: None [facility] Work Phone: Summary Purpose Family History No [...] Admit Date follow up after pain management [facility] 12:52pm refer back from pm worsening [...] and content) DATE CREATED AUTHOR 07/25/2022 [facility] pital DATE CREATED AUTHOR AUTHOR'S ORGANIZ ATION 03/06/2024 [facility] DATE CREATED AUTHOR AUTHOR'S ORGANIZ ATION 04/10/2024 [facility] EPIC DATE CREATED AUTHOR AUTHOR'S ORGANIZ ATION 06/05/2024 [facility] DATE CREATED AUTHOR AUTHOR'S ORGANIZ ATION 07/22/2024 [facility] Care Teams (unrecognized sec tion and content) [...] 26, 2023 End: December 26, 2023 Milton N DO Td Attending Provider Active S tart: December 26, 2023 End: December 26, 2023 Team Status: Inactive Member Role Status Dates Carmela Lester Primary Care Provider Active Sta rt: January 13, 2024 End: January 13, 2024 Milton N Td , DO Attending Provider Active S tart: January 13, 2024 End: January 13, 2024 Team Status: Inactive Member Role Status Dates Carmela Lester Primary Care Provider Active Sta rt: January 16, 2024 End: January 16, 2024 Milton N Td , DO Attending Provider Active S tart: January 16, 2024 End: January 16, 2024 Team Status: Inactive Member Role Status Dates Carmela Lester Primary Care Provider Active Sta rt: February 01, 2024 End: February 01, 2024 Milton N Kenricki , DO Attending Provider Active S tart: February 01, 2024 End: February 01, 2024 Outside Plant Technician Relationship Specialty Start Date End Date Parviz Stewart MD [address] [place] [address] PCP - General Family Medicine 05/10/23 Carmela Lester NP [address] [place] [address] Referring Physician Nurse Practitioner 10/04/22 Carmela Lester NP [address] [place] [address] Nurse Practitioner Family Medicine 05/10/23 Outside Plant Technician Relationship Specialty Start Date End Date Parviz Stewart MD [address] [place] [address] PCP - General Family Medicine 05/10/23 Carmela Lester NP [address] [place] [address] Referring Physician Nurse Practitioner 10/04/22 Carmela Lester NP [address] [place] [address] Nurse Practitioner Family Medicine 05/10/23 Outside Plant Technician Relationship Specialty Start Date End Date Parviz Stewart MD [address] [place] [address] PCP - General Family Medicine 05/10/23 Carmela Lester NP [address] [place] [address] Referring Physician Nurse Practitioner 10/04/22 Carmela Lester NP [address] [place] [address] Nurse Practitioner Family Medicine 05/10/23 Outside Plant Technician Relationship Specialty Start Date End Date Parviz Stewart MD [address] [place] [address] PCP - General Family Medicine 05/10/23 Carmela Lester NP [address] [place] [address] Referring Physician Nurse Practitioner 10/04/22 Carmela Lester NP [address] [place] [address] Nurse Practitioner Family Medicine 05/10/23 Outside Plant Technician Relationship Specialty Start Date End Date Parviz Stewart MD [address] [place] [address] PCP - General Family Medicine 05/10/23 Carmela Lester NP [address] [place] [address] Referring Physician Nurse Practitioner 10/04/22 Carmela Lester NP [address] [place] [address] Nurse Practitioner Family Medicine 05/10/23 Outside Plant Technician Relationship Specialty Start Date End Date Parviz Stewart MD [address] [place] [address] PCP - General Family Medicine 05/10/23 Carmela Lester NP [address] [place] [address] Referring Physician Nurse Practitioner 10/04/22 Carmela Lester NP [address] [place] [address] Nurse Practitioner Family Medicine 05/10/23 Outside Plant Technician Relationship Specialty Start Date End Date Parviz Stewart MD [address] [place] [address] PCP - General Family Medicine 05/10/23 Carmela Lester NP [address] [place] [address] Referring Physician Nurse Practitioner 10/04/22 Carmela Lester NP [address] [place] [address] Nurse Practitioner Family Medicine 05/10/23 Den Espinoza DO [address] [place] [address] Referring Physician Neurology 03/27/24 Jessica Venegas NP [address] [place], [place] Nurse Practitioner Neurology 03/27/24 Outside Plant Technician Relationship Specialty Start Date End Date Parviz Stewart MD [address] [place] [address] PCP - General Family Medicine 05/10/23 Carmela Lester NP [address] [place] [address] Referring Physician Nurse Practitioner 10/04/22 Carmela Lester NP [address] [place] [address] Nurse Practitioner Family Medicine 05/10/23 Den Espinoza DO [address] [place] [address] Referring Physician Neurology 03/27/24 Jessica Venegas NP [address] [place], [place] Nurse Practitioner Neurology 03/27/24 Outside Plant Technician Relationship Specialty Start Date End Date Parviz Stewart MD [address] [place] [address] PCP - General Family Medicine 05/10/23 aCrmela Lester NP [address] [place] [address] Referring Physician Nurse Practitioner 10/04/22 Carmela Lester NP [address] [place] [address] Nurse Practitioner Family Medicine 05/10/23 Den Espinoza DO [address] [place] [address] Referring Physician Neurology 03/27/24 Jessica Venegas, EMMANUEL [address] [place] [address] Nurse Practitioner Neurology 03/27/24 Outside Plant Technician Relationship Specialty Start Date End Date Parviz Stewart MD [address] [place] [address] PCP - General Family Medicine 05/10/23 Carmela Lester NP [address] [place] [address] Referring Physician Nurse Practitioner 10/04/22 Carmela Lester NP [address] [place] [address] Nurse Practitioner Family Medicine 05/10/23 Den Espinoza DO [address] [place] [id number] Referring Physician Neurology 03/27/24 Jessica Venegas NP [address] [place] [id number] Nurse Practitioner Neurology 03/27/24 Goals (unrecognized section [...] Contact Neurology Diagnoses Paresthesia of skin Procedures CT OFFICE/OUTPATIENT NEW LOW MDM Milton Appiah MD Phone: tel: fax: Addy Lynn MD [address] [place] [address] Phone: tel: fax: Referral ID Status Reason Start Date Expiration Date V isits Requested Visits Authorized [id number] Closed Consult and Treat 02/15/2024 08/13/2024 1 [...] BE BASED ON THE PRIMARY CLINICAL RECORDS. [employer] [facility]. provides no warranty or guarantee of the accuracy or completeness of information in this document.
[2024-09-07 10:12] LABS: Basophils Absolute Auto 0.1 10^3/uL (0.0-0.1); Basophils Percent Auto 1.5 % (0.2-2.0); Eosinophils Absolute Auto 0.2 10^3/uL (0.0-0.7); Eosinophils Percent Auto 2.6 % (0.9-7.0); Hematocrit 41.2 % (36.0-48.0); Hemoglobin 13.7 g/dL (12.0-16.0); Immature Granulocytes Abs Auto 0.02 10^3/uL (0.00-0.03); Immature Granulocytes Pct Auto 0.3 % (0.0-0.5); Lymphocytes Absolute Auto 2.1 10^3/uL (1.2-3.8); Lymphocytes Percent Auto 35.1 % (20.5-60.0); Mean Corpuscular HGB Conc 33.3 g/dL (29.9-35.2); Mean Corpuscular Hemoglobin 31.6 pg (26.7-34.0); Mean Corpuscular Volume 95.2 fL (81.0-99.0); Mean Platelet Volume 11.5 fL (9.5-13.5); Monocytes Absolute Auto 0.6 10^3/uL (0.3-0.8); Monocytes Percent Auto 9.4 % (1.7-12.0); Neutrophils Absolute Auto 3.1 10^3/uL (1.4-6.5); Neutrophils Percent Auto 51.1 % (43.0-75.0); Platelet Count 249 10^3/uL (150-450); Red Blood Count 4.33 10^6/uL (4.20-5.40); Red Cell Distribution Width 11.8 % (11.0-15.0)
[2024-09-07 10:19] LABS: Creatinine Urine Random 86.59 mg/dL (20.00-300.00); Microalbumin Urine Random <1.3 mg/dL (<=30.0)
[2024-09-07 10:36] LABS: Alanine Aminotransferase 25 U/L (14-59); Albumin Globulin Ratio 1.2; Albumin Level 3.7 g/dL (3.4-5.0); Alkaline Phosphatase 66 U/L (46-116); Anion Gap 14.7; Aspartate Amino Transferase 25 U/L (15-37); BUN Creatinine Ratio 13.6; Bilirubin Total 0.6 mg/dL (0.2-1.0); Calcium 9.1 mg/dL (8.5-10.1); Carbon Dioxide 28.5 mmol/L (21.0-32.0); Chloride 104 mmol/L (98-107); Chol HDL Ratio 1.6; Cholesterol 145 mg/dL (<=200); Estimated GFR (African America >60 (>=60 mL/min/1.73m^2); Estimated GFR (Non-African Ame >60 (>=60 mL/min/1.73m^2); Globulin 3.2 g/dL; Glucose 92 mg/dL (74-106); HDL Cholesterol 90 mg/dL (40-60); Potassium 4.2 mmol/L (3.5-5.1); Sodium 143 mmol/L (136-145); Thyroid Stimulating Hormone 0.499 uIU/mL (0.358-3.740); Total Protein 6.9 g/dL (6.4-8.2); Triglycerides 122 mg/dL (<=150); VLDL CHOLESTEROL 24.4 mg/dL
[2024-09-07 10:52] LABS: Bilirubin Urine NEGATIVE (NEGATIVE); Blood Urine NEGATIVE (NEGATIVE); Clarity Urine CLEAR (CLEAR); Color Urine LT. YELLOW (YELLOW); Glucose Urine UA NEGATIVE (NEGATIVE); Ketones Urine NEGATIVE (NEGATIVE); Leukocyte Esterase Urine TRACE (NEGATIVE); Nitrite Urine NEGATIVE (NEGATIVE); Protein Urine NEGATIVE (NEG/TRACE); Specific Gravity Urine 1.015 (1.005-1.025); Urobilinogen Urine 0.2 EU/dL (0.2-1.0); pH Urine 6.5 (5.0-9.0)
[2024-09-07 11:17] LABS: Urine Microscopic Indicated YES
[2024-09-07 11:21] LABS: Bacteria Urine TRACE #/HPF (NONE SEEN); Cast Seen? NONE SEEN #/LPF (NONE SEEN); Crystals Seen? None Seen #/HPF (None Seen); Mucus Urine TRACE (NONE SEEN); RBC Urine 0-2 #/HPF (0-2); Squamous Epithelial Cell Urine FEW #/LPF (NONE/RARE); WBC Urine 0-2 #/HPF (NONE SEEN)
[2024-09-07 11:33] LABS: Free T4 0.96 ng/dL (0.76-1.46)
== END 2024-09-07 09:37 | disposition home or self-care (01) ==
PROVIDERS: PCP Nurse Practitioner; Visit Provider Nurse Practitioner
DX: I25.10 Atherosclerotic heart disease of native coronary artery without angina pectoris (principal); I10 Essential (primary) hypertension; E03.9 Hypothyroidism, unspecified
CPT/HCPCS: 36415; 80053; 80061; 81001; 82043; 82570; 84439; 84443; 85025

== ENCOUNTER 2024-10-10 13:09 | Outpatient (OUT) | payer OTHER, SELFPAY ==
--- NOTE | 2024-10-10 13:46 | PM.CN ---
Consult Note: HPI Data of Consult Patient: known to practice within the last 3 years Requesting Physician: Jaz Haley NP Primary Care Provider: Carmela Lester NP Consult Narrative Reason for consult: neck, hands, bilateral feet pain Narrative: 54yof who presents for evaluation. since last visit pt has had improvement in neck pain, continues to endorse moderate hand and foot pain. neck is mild soreness. pt has been weaning off of gabapentin without increased pain. cervical MBBs were denied by insurance, but pt noting improvement in facet mediated neck pain. pending hand xrays from pcp per pt. cc:: CC: Jaz Haley NP Review of Systems ROS Status of ROS 10 or more systems reviewed and unremarkable except as noted in history and below Musculoskeletal Reports: neck pain and joint pain [facility] Medical History (Updated 10/10/24 @ 13:55 by Jaz Haley NP) HTN (hypertension) ?I10 - Essential (primary) hypertension (ICD-10) Myocardial infarction ?I21.9 - Acute myocardial infarction, unspecified (ICD-10) Surgical History History of ankle surgery ?Z98.890 - Other specified postprocedural states (ICD-10) History of heart bypass surgery ?Z95.1 - Presence of aortocoronary bypass graft (ICD-10) Meds Home Medications and Allergies Home Medications ?Medication ?Instructions ?Recorded ?Confirmed ?Type aspirin 81 mg capsule 81 mg PO DAILY 10/31/23 07/09/24 History atorvastatin 80 mg tablet 80 mg PO DAILY 10/31/23 07/09/24 History ezetimibe 10 mg tablet 10 mg PO DAILY 10/31/23 07/09/24 History isosorbide mononitrate 120 mg 120 mg PO DAILY 10/31/23 07/09/24 History tablet,extended release 24 hr levothyroxine 75 mcg capsule 75 mcg PO DAILY 10/31/23 07/09/24 History lisinopril 20 mg tablet 20 mg PO BID 10/31/23 07/09/24 History metoprolol tartrate 100 mg tablet 125 mg PO BID 10/31/23 07/09/24 History (Lopressor) verapamil 80 mg tablet 80 mg PO TID 10/31/23 07/09/24 History gabapentin 300 mg capsule 900 mg (3 x 300 mg) PO BID #180 06/21/24 07/09/24 Rx caps gabapentin 300 mg capsule See Rx Instructions .Route 08/01/24 Rx .COMPLEX #180 caps gabapentin 300 mg capsule See Rx Instructions .Route 09/05/24 Rx .COMPLEX #180 caps Allergies Allergy/AdvReac Type Severity Reaction Status Date / Time adhesive Allergy Rash Verified 07/09/24 08:46 Exam Constitutional Documenting provider has reviewed patient's vital signs: yes Common normals: no apparent distress, oriented x3, healthy appearing, alert and well nourished General appearance: cooperative HENMT Common normals: normocephalic, hearing grossly normal bilaterally and moist oral mucous membranes Head and scalp: normocephalic Eye Common normals: PERRL Pupil: PERRL Neck & C-Spine Common normals: full ROM General: normal visual inspection Cervical spine: cervical ROM abnormal, pain with cervical ROM and other (positive spurlings ); no cervical spine tenderness, no paracervical muscle tenderness, no paracervical muscle spasm, no trapezius muscle tenderness and Lhermitte's sign negative Other: strength 4/5 in RUE 5/5 in LUE sensation intact BUE negative spurlings Chest Common normals: inspection of chest normal Respiratory Common normals: normal respiratory effort, no retractions and no use of accessory muscles Neuro Common normals: oriented x3 and CN's II-XII intact bilaterally Sensorium/orientation: alert Motor exam: no movement abnormalities noted and strength abnormal Psych Common normals: mental status grossly normal, thought process normal, cooperative, affect normal, speech normal and activity/motor behavior normal Speech: normal speech Thought process: normal thought process Results Additional Findings Additional findings: If on a controlled substance or opioids, I have checked an [place]AR[place] report on this patient and there are no aberrancies noted in the prescribing history.??If on a controlled substance or opioid a drug screen was completed and reviewed within the last year, and if there has not been a drug screen completed we ordered one today to monitor higher risk, state monitored pain medication use. As part of providing excellent, safe, comprehensive care, the following was completed at our patient's visit: 1. A medication reconciliation and review to ensure accurate knowledge of current/active medications, including asking our patients to inform us about any [id number] medications or herbal remedies/nutritional supplements/alternative remedies. 2. A review to specifically ensure our patients have had annual screening for screening for depression, screening for tobacco use, and screening for unhealthy alcohol use. For concerning screenings had a discussion with the patient, provided patient education, and recommended follow-up with primary care provider when appropriate. If patient noted with a risk of falling, they received education on strength, gait, and balance training to prevent future risk of falling. Assessment and Plan Assessment and Plan (1) Cervical spondylosis: Assessment and Plan: CLYDE 16% with moderate to severe pain impacting adls, sleep, social life, travel (2) Cervical stenosis of spinal canal: (3) Cervical radiculopathy: (4) Osteoarthritis: (5) Diffuse arthralgia: (6) Chronic pain syndrome: Plan pt advised to f/u with pcp as planned regarding diffuse joint pain start duloxetine 30mg bid for chronic pain syndrome and OA wean off of gabapentin as tolerated, pt is not finding benefit as discussed on exam no significant radicular pain or facet mediated pain, defer further injections f/u 6 weeks to evaluate pain and response to duloxetine
== END 2024-10-10 13:10 | disposition home or self-care (01) ==
LOC: PM 13:09
PROVIDERS: PCP Nurse Practitioner; Visit Provider Nurse Practitioner
DX: M47.812 Spondylosis without myelopathy or radiculopathy, cervical region (principal); M48.02 Spinal stenosis, cervical region; M54.12 Radiculopathy, cervical region; M19.90 Unspecified osteoarthritis, unspecified site; M25.59 Pain in other specified joint; G89.4 Chronic pain syndrome; M79.642 Pain in left hand; M79.641 Pain in right hand
CPT/HCPCS: 73120; G0463

== ENCOUNTER 2024-10-10 13:54 | Outpatient (OUT) | payer OTHER, SELFPAY ==
--- NOTE | 2024-10-10 14:05 | XR_ITS ---
The [place] [id number] Patient Name: CHRISTIANO MENDOZA MRN: [id number] date: 1970 Sex: F Assigned Patient Location: [facility] Current Patient Location: [facility] Accession/Order Number: [id number] Exam Date: 10/10/2024 14:34 Report Date: 10/10/2024 14:35 At the request of: LESLEY CHRIS NP Procedure: XR hand ALYSSA 2V Bilateral hand series 2 views each. Reason for exam: Bilateral thumb pain for years. COMPARISON: None. FINDINGS: Left hand demonstrates no focal soft tissue abnormality or acute bony process. Mild degenerative changes involving the CMC joint of the thumb with calcified loose body present likely from remote trauma. No bony erosions. Right hand demonstrates no focal soft tissue abnormality or acute bony process. Mild degenerative changes involving the CMC joint of the thumb. Additional mild degenerative changes are seen involving the IP joint of the thumb. No bony erosions. XR/XR hand ALYSSA 2V IMPRESSION: Mild degenerative changes involving the CMC joints of the thumb as well as the IP joint of the right thumb. No acute bony process is seen. Impression dictated by: Supa Morales Jr., D.O. 10/10/2024 2:35 PM Dictation Location: [place] [address] Electronically authenticated by: [id number] Y Date: 10/10/2024 14:35
== END 2024-10-10 13:55 | disposition home or self-care (01) ==
LOC: RAD 13:55
PROVIDERS: PCP Nurse Practitioner; Visit Provider Nurse Practitioner
DX: M79.641 Pain in right hand (principal); M79.642 Pain in left hand
CPT/HCPCS: 73120

== ENCOUNTER 2024-11-21 15:53 | Outpatient (OUT) | payer OTHER, SELFPAY ==
--- OUTSIDE RECORDS SUMMARY | 2024-11-21 13:03 | XMS_ITS | Encounter Summary ---
Author Organization [facility] Address [address] [place] [address] Care Team Providers Care Medical Library Assistant Name Role Phone Carmela Lester NP Unavailable [phone] Parviz Stewart MD Primary Care Provider Carmela Lester STEEL PLATE PRINTER Unavailable [phone] Nai Chávez DO Unavailable [phone] Jessica Venegas STEEL PLATE PRINTER Unavailable [phone] Encounter Details Date Type Department Care Team (Late st Contact Info) Description 05/30/2023 Orders Only [facility] [address] [place] [address] Carmela Lester NP [address] [place] [address] Social History Tobacco Use Types Packs/Day Years [...] Not at all 05/30/2023 3:08 PM EDT Sonam Dye MA Feeling down, depressed, or hopeless Not at all 05/30/2023 3:08 PM EDT Sonam Dye MA Patient Health Questionnaire-2 Score 0 05/30/2023 3:08 PM EDT Cristal Dye MA documented as of this encounter Plan of Treatment Not on file documented as of this encounter Procedures Procedure Name Priority Date/Time Associated Diagnosis Comments ECHO TRANSTHORACIC W/ DOPPLER Routine 05/26/2023 8:50 AM EDT documented in this encounter Results * ECHO TRANSTHORACIC W/ DOPPLER (05/26/2023 8:50 AM EDT) Anatomical Region Laterality Modality Radiographic Regla ging Carmela Lester NP IMG XR PROCEDURES Final Result documented in this encounter Visit Diagnoses Not on filedocumented in this encounter Care Teams Medical Library Assistant Relationship Specialty Start Date End Date Parviz Stewart MD PCP - General Family Medicine 05/10/23 Carmela Lester NP Referring Physician Nurse Practitioner 10/04/22 Carmela Lester NP Nurse Practitioner Family Medicine 05/10/23 Nai Chávez DO [address] [place] [address] Referring Physician Neurology 03/27/24 Jessica Venegas NP [address] [place] [address] Nurse Practitioner Neurology 03/27/24 documented as of this encounter
--- OUTSIDE RECORDS SUMMARY | 2024-11-21 13:03 | XMS_ITS | Encounter Summary ---
Author Organization [facility] Address [address] [place] [address] Care Team Providers Care Power Systems Engineer Name Role Phone Carmela Lester NP Unavailable [phone] Parviz Stewart MD Primary Care Provider Carmela Lester NP Unavailable [phone] Nai Chávez DO Unavailable [phone] Jessica Venegas CLAIM ATTORNEY Unavailable [phone] Encounter Details Date Type Department Care Team (Late st Contact Info) Description 09/05/2023 Clinisync Result Encounter [facility] External Department Unsolicited Carmela Lester NP [address] [place] [address] Social History Tobacco Use Types Packs/Day Years [...] EDT Narrative 09/05/2023 6:54 [place] [address] Magnetic Resonance Report Signed Patient: DIANE CANAS MR#: [id number] : 1970 Acct:[id number] Age/Sex: 53 / F ADM Date: 09/02/23 Loc: MRI Attending Dr: Carmela Lester NP Ordering Physician: Carmela Lester NP Date of Service: 09/02/23 Procedure(s): MR cervical spine wo con Accession Number(s): [id number] cc: Carmela Lester NP [facility] [place] [address] Patient Name: DIANE CANAS MRN: [id number] date: 1970 Sex: F Assigned Patient Location: MRI Current Patient Location: Accession/Order Number: [id number] Exam Date: 09/02/2023 14:05 Report Date: 09/05/2023 [...] Sohail Rendon M.D. Signed By: 09/05/2354 DD/ 0652 TD/TT: Stone Engraver: Procedure Note Radiology, Radiologist, MD - 09/05/2023 [place] [address] Magnetic Resonance Report Signed Patient: DIANE CANAS RMR#: [id number] : 1970Acct:[id number] Age/Sex: 53 / FADM Date: 09/02/23 Loc: MRI Attending Dr: Carmela Lester NP Ordering Physician: Carmela Lester NP Date of Service: 09/02/23 Procedure(s): MR cervical spine wo con Accession Number(s): [id number] cc: Carmela Lester NP [facility] [place] [address] Patient Name: DIANE CANAS MRN: [id number] date: 1970 Sex: F Assigned Patient Location: MRI Current Patient Location: Accession/Order Number: [id number] Exam Date: 09/02/2023 14:05 Report Date: 09/05/2023 [...] M.D. Signed By:09/05/23 0654 DD/ 0652 TD/TT: Stone Engraver: us Carmela Lester NP IMG MRI PROCEDURES Final Result documented in this encounter Visit Diagnoses Not on filedocumented in this encounter Care Teams Power Systems Engineer Relationship Specialty Start Date End Date Parviz Stewart MD PCP - General Family Medicine 05/10/23 Carmela Lester NP Referring Physician Nurse Practitioner 10/04/22 Carmela Lester NP Nurse Practitioner Family Medicine 05/10/23 Nai Chávez DO [address] [place], [place] [id number] Referring Physician Neurology 03/27/24 Jessica Venegas NP [address] [place] [address] Nurse Practitioner Neurology 03/27/24 documented as of this encounter
--- OUTSIDE RECORDS SUMMARY | 2024-11-21 13:03 | XMS_ITS | Clinical Summary ---
Author Organization [facility] Address [address] [place] [address], [address] [place] [address] Care Team Providers Care Burrer Machine Name Role Phone Unavailable Primary Care Provider [...]
--- OUTSIDE RECORDS SUMMARY | 2024-11-21 13:03 | XMS_ITS | Clinical Summary ---
Author Organization [facility] Healthcare Address [address] [place] [address] Care Team Providers Care Furniture Fabricator Name Role Phone Carmela Lester NP Unavailable [phone] Parviz Stewart MD Primary Care Provider Carmela Lester NP Unavailable [phone] Nai Chávez DO Unavailable [phone] Jessica Venegas FISH EGG PACKER Unavailable [phone] Allergies Active Allergy Reactions Criticality Noted Date Comments Wound Dressing Adhesive Hives 03/01/2014 Medications tiZANidine (Zanaflex) 4 MG tabletIndications :Trapezius muscle spasm Take 1 tablet (4 mg) by mouth as needed at bedtime for muscle spasms for up to 15 days May cut pill in half and take 1/2 pill at bedtime 15 tablet 1 4 Active gabapentin (Neurontin) 300 MG capsuleIndication s:Neuropathy Take 1 capsule (300 mg) by mouth in the morning and 1 capsule (300 mg) in the evening and 1 capsule (300 mg) before bedtime. Take 300 mg by mouth in the morning and 300 mg in the evening and 300 mg before bedtime.. 270 capsule 1 4 Active nitroglycerin (Nitrostat) 0.4 MG SL tabletIndications :Coronary artery disease involving united keetoowah coronary artery of united keetoowah heart without angina pectoris Place 1 tablet (0.4 mg) under the tongue every 5 (five) minutes if needed for chest pain If after 3 doses still chest pain, go to ER/call 911 25 tablet 4 Active atorvastatin (Lipitor) 80 MG tabletIndications :Coronary artery disease involving united keetoowah coronary artery of united keetoowah heart without angina pectoris Take 1 tablet (80 mg) by mouth at bedtime Take pill in the evening time not morning 90 tablet 5 12/11/19 25 Active ezetimibe (Zetia) 10 MG tabletIndications :Coronary artery disease involving united keetoowah coronary artery of united keetoowah heart without angina pectoris Take 1 tablet (10 mg) by mouth Daily 90 tablet 5 12/11/19 25 Active isosorbide mononitrate ER (Imdur) 120 MG 24 hr tabletIndications :Coronary artery disease involving united keetoowah coronary artery of united keetoowah heart without angina pectoris,Essentia l hypertension Take 1 tablet (120 mg) by mouth Daily Do not crush or chew. Take 120 mg by mouth in the morning. Do not crush or chew. . 90 tablet 5 12/11/19 25 Active levothyroxine (Synthroid, Levoxyl) 75 MCG tabletIndications :Hypothyroidism (acquired) Take 1 tablet (75 mcg) by mouth in the morning. Take before meals. 90 tablet 5 12/11/19 25 Active lisinopril 20 MG tabletIndications :Primary hypertension,Esse ntial hypertension Take 1 tablet (20 mg) by mouth in the morning and 1 tablet (20 mg) before bedtime. 180 tablet 5 12/11/19 25 Active metoprolol tartrate (Lopressor) 100 MG tabletIndications :Primary hypertension,Esse ntial hypertension Take 1 tablet (100 mg) by mouth in the morning and 1 tablet (100 mg) before bedtime. 180 tablet 5 12/11/19 25 Active metoprolol tartrate (Lopressor) 25 MG tabletIndications :Essential hypertension Take 1 tablet (25 mg) by mouth in the morning and 1 tablet (25 mg) before bedtime. 180 tablet 5 12/11/19 25 Active verapamil (Calan) 80 MG tabletIndications :Primary hypertension,Esse ntial hypertension Take 1 tablet (80 mg) by mouth in the morning and 1 tablet (80 mg) in the evening and 1 tablet (80 mg) before bedtime. 270 tablet 1 5 12/11/19 25 Active DULoxetine (Cymbalta) [address] capsule Take 30 mg by mouth in the morning and 30 mg before bedtime. Do not crush or chew. Active diclofenac sodium (Voltaren) 1 % gelIndications:Bi lateral hand pain Apply 2 g topically 3 (three) times a day as needed for pain 300 g 1 5 11/17/19 25 Active Problems Problem Noted Date Diagnosed Date Cigarette nicotine dependence without complicati on 09/11/2024 Assessment & Plan (09/11/2024 7:24 AM EDT): The patient has been advised of the risks of continued smoking: stroke, MS, all forms of cancer, lung disease, and . Options for quitting smoking include: cold turkey, hypnosis, acupuncture, nicotine replacement meds (gum, lozenges, and patches), Buproprion, and Varenicline. At this time pt is encouraged to evaluate their goals for wanting to quit smoking, and reach out to provider when ready to start this process Breast cancer screening declined 09/11/2024 Paresthesia 09/26/2023 Sensory neuropathy 09/26/2023 Lumbosacral radiculopathy 09/26/2023 ERIKC (obstructive sleep apnea) 09/26/2023 Assessment & Plan (09/11/2024 7:21 AM EDT): You have a diagnosis of obstructive sleep apnea. It is recommended that you wear your PAP device any time while in bed sleeping. Not using the PAP device can increase your risk of elevated/uncontrolled high blood pressure, atrial fibrillation, heart attack, stroke, or sudden . Compliance with PAP: How many hours of use per night: Do you feel more refreshed in the morning: Company that supplies your machine and tubing/filters etc: Doctor that manages your ERICK: Daytime somnolence 09/26/2023 Cervical stenosis of spinal [...] angina 05/10/2023 CAD (coronary artery disease) 05/10/2023 Assessment & Plan (09/11/2024 7:23 AM EDT): Current meds: statin, zetia, alee, imdur, b jose , verapamil, and prn nitroglycerin Abnormal ankle brachial index (LYSSA) 05/10/2023 GERD (gastroesophageal reflux disease) Menorrhagia 05/10/2023 Asymptomatic microscopic hematuria 05/10/2023 Bilateral hand pain 05/10/2023 Assessment & Plan (09/11/2024 2:59 PM EDT): Bilat hand xray Consider ortho, ?? Dequervains tenosynovitis Vitamin D deficiency 05/10/2023 Vitamin B12 deficiency 05/10/2023 Seasonal allergies 05/10/2023 Back pain, chronic 05/10/2023 [...] 05/09/2023 Hypothyroidism (acquired) 02/07/2023 Assessment & Plan (09/11/2024 7:23 AM EDT): Current med: levothyroxine Check labs yearly and prn dose change or change in sxs Assessment & Plan (02/07/2023 3:29 PM EST): C/o weight gain, fatigue Will check labs Cont current supplement at this time Idiopathic gout 02/07/2023 Assessment & Plan (02/07/2023 3:30 PM EST): Check labs Angina pectoris 06/29/2011 Hypertension 06/29/2011 Assessment & Plan (09/11/2024 7:22 AM EDT): Please check blood pressure daily and record DASH diet Limit caffeine Take medication as directed Contact office if chest pain, pressure, dizziness, shortness of breath, swelling legs Recommend slow position changes Current meds: b jose, alee, and imdur , verapamil Assessment & Plan (05/30/2023 3:40 PM EDT): Back on lisinopril BID, better blood pressure control with metoprolol at 125mg BID I have reviewed her ECHO report with her, I am going to refer her back to cardiology w her hx of CAD [facility], would like to see Dr Lombardo [...] 02/25/2011 Overview (02/08/2023): Needs refill of zetia Assessment & Plan (09/11/2024 7:24 AM EDT): On statin and zetia Check labs yearly and prn dose changes Resolved Problems Problem Noted Date Diagnosed Date Resolved Date Closed traumatic minimally d isplaced fracture of proximal end of fibula with routine healing 05/10/2023 05/10/2023 Tobacco user 05/10/2023 09/11/2024 Assessment & Plan (07/11/2023 4:03 PM EDT): The patient has been advised of the risks of continued smoking: stroke, MS, all forms of cancer, lung disease, and . Options for quitting smoking include: cold turkey, hypnosis, acupuncture, nicotine replacement meds (gum, lozenges, and patches), Buproprion, and Varenicline. At this time pt is encouraged to evaluate their goals for wanting to quit smoking, and reach out to provider when ready to start this process Neck muscle spasm 05/10/2023 05/10/2023 Bronchitis 02/07/2023 05/10/2023 Assessment & Plan (02/07/2023 3:30 PM EST): Z pack and albuterol inhaler Fu if not better Fluids and rest Encounters Date Type Department Care Team Description 10/17/2024 Refill [facility] [address] [place] [phone] Carmela Lester NP Bilateral hand pain 10/17/2024 [facility] [address] [place] [phone] Carmela Lester NP 10/16/2024 [facility] [address] [place] [phone] Carmela Lester NP Bilateral hand pain (Primary Dx) 10/10/2024 Abstract [facility] [address] [place] [address] Carmela Lester NP 10/10/2024 Clinisync Result Encounter [facility] External Department Unsolicited Carmela Lester NP 09/11/2024 2:20 PM EDT Office Visit [facility] [address] [place] [address] Carmela Lester NP Primary hypertension (Primary Dx); Coronary artery disease involving united keetoowah coronary artery of united keetoowah heart without angina pectoris ; Hypothyroidism (acquired) ; Cigarette nicotine dependence without complication; Mixed hyperlipidemia ; Essential hypertension ; Trapezius muscle spasm; Bilateral hand pain; Breast cancer screening declined 09/11/2024 Bamboo flowsheet [facility] [address] [place] [address] Carmela Lester NP 09/07/2024 Clinisync Result Encounter [facility] External Department Unsolicited Carmela Lester NP from Last 3 Months Immunizations Immunization Administration [...] Sign Reading Time Taken Comments Blood Pressure 118/80 09/11/2024 2:19 PM EDT Pulse 78 09/11/2024 2:19 PM EDT Temperature 36.9 C (98.5 F) 09/11/2024 2:19 PM EDT Respiratory Rate 18 09/11/2024 2:19 PM EDT Oxygen Saturation 98% 09/11/2024 2:19 PM EDT Inhaled Oxygen Concentration - - Weight 63.4 kg (139 lb 12.8 oz) 09/11/2024 2:19 PM EDT Height 162.6 cm (5' 4 ) 03/26/2024 3:21 PM EST Body Mass Index 24 03/26/2024 3:21 PM EST Plan of Treatment Health Maintenance Due Date Last Done Comments CT Colonography 1971 Colonoscopy 1971 FIT 1971 FOBT 1970 Sigmoidoscopy 1971 Pap Smear 02/28/1992 HPV/Cotest 2001 Influenza Vaccine (#1) 2024 3, 01/01/2022, 01/03/2021, Additional history exists Colorectal Cancer Screening 02/25/2026 FIT-DNA 02/25/2026 02/25/2023 Cervical Cancer Screening Discontinued Mammogram Discontinued Procedures Procedure Name Priority Date/Time Associated Diagnosis Comments XR HAND 1-2 VIEWS BILATERAL 10/10/2024 2:35 PM EDT ALL THYROXINE (T4) FREE Routine 09/07/2024 9:48 AM EDT ALL THYROID STIM HORMONE Routine 09/07/2024 9:48 AM EDT ALL LIPID PROFILE (FASTING) Routine 09/07/2024 9:48 AM EDT [facility] CMP (CMP) (FOR [facility]OTE [facility] USE) Routine 09/07/2024 9:48 AM EDT ALL CBC WITH AUTO DIFF Routine 09/07/2024 9:48 AM EDT [facility] URINE MICROSCOPIC ONLY Routine 09/07/2024 9:41 AM EDT [facility] UA (CLEAN/CATCH) MICROSCOPIC IF INDICATE Routine 09/07/2024 9:41 AM EDT [facility] MICROALB CREAT RATIO RANDOM Routine 09/07/2024 9:41 AM EDT LAB COLOGUARD COLON CANCER SCREEN Routine 02/25/2023 7:15 AM EST Colon cancer screening from Last 3 Months or Most Recently Relevant to Health Maintenance Results * XR hand 1 or 2 views bilateral (10/10/2024 2:35 PM EDT) Anatomical Region Laterality Modality Upper Extremities, Hand Bilateral Radiogra phic Imaging 10/10/2024 2:35 PM EDT Narrative 10/10/2024 2:37 [place] [address] XRay Report Signed Patient: DIANE CANAS MR#: [id number] : 1970 Acct:[id number] Age/Sex: 54 / F ADM Date: 10/10/24 Loc: RAD Attending Dr: Carmela Lester NP Ordering Physician: Carmela Lester NP Date of Service: 10/10/24 Procedure(s): XR hand ALYSSA 2V Accession Number(s): [id number] cc: Carmela Lester NP [place] [address] Patient Name: DIANE CANAS MRN: [facility]:[id number] date: 1970 Sex: F Assigned Patient Location: RAD Current Patient Location: RAD Accession/Order Number: [id number] Exam Date: 10/10/2024 14:34 Report Date: 10/10/2024 14:35 At the request of: CARMELA LESTER NP Procedure: XR hand ALYSSA 2V Bilateral hand series 2 views each. Reason for exam: Bilateral thumb pain for years. COMPARISON: None. FINDINGS: Left hand demonstrates no focal soft tissue abnormality or acute bony process. Mild degenerative changes involving the CMC joint of the thumb with calcified loose body present likely from remote trauma. No bony erosions. Right hand demonstrates no focal soft tissue abnormality or acute bony process. Mild degenerative changes involving the CMC joint of the thumb. Additional mild degenerative changes are seen involving the IP joint of the thumb. No bony erosions. XR/XR hand ALYSSA 2V IMPRESSION: Mild degenerative changes involving the CMC joints of the thumb as well as the IP joint of the right thumb. No acute bony process is seen. Impression dictated by: Supa Morales Jr., D.O. 10/10/2024 2:35 PM Dictation Location: [place] [address] Electronically authenticated by: [id number] Y Date: 10/10/2024 14:35 Dictated By: Supa Morales M.D. Signed By: 10/10/24 1437 DD/ 34 TD/TT: Programming Intern: Procedure Note Radiology, Radiologist, MD - 10/10/2024 [place] [address] XRay Report Signed Patient: DIANE CANAS RMR#: [id number] : 1970Acct:[id number] Age/Sex: 54 / FADM Date: 10/10/24 Loc: [facility] Attending Dr: Carmela Lester NP Ordering Physician: Carmela Lester NP Date of Service: 10/10/24 Procedure(s): XR hand ALYSSA 2V Accession Number(s): [id number] cc: Carmela Lesetr NP [place] [address] Patient Name: DIANE CANAS MRN: [id number] date: 1970 Sex: F Assigned Patient Location: [facility] Current Patient Location: [facility] Accession/Order Number: [id number] Exam Date: 10/10/2024 14:34 Report Date: 10/10/2024 14:35 At the request of: CARMELA LESTER NP Procedure: XR hand ALYSSA 2V Bilateral hand series 2 views each. Reason for exam: Bilateral thumb pain for years. COMPARISON: None. FINDINGS: Left hand demonstrates no focal soft tissue abnormality or acute bony process. Mild degenerative changes involving the CMC joint of thethumb with calcified loose body present likely from remote trauma. No bony erosions. Right hand demonstrates no focal soft tissue abnormality or acute bony process. Mild degenerative changes involving the CMC joint of the thumb. Additional mild degenerative changes are seen involving the IP joint ofthe thumb. No bony erosions. XR/XR hand ALYSSA 2V IMPRESSION: Mild degenerative changes involving the CMC joints of thethumb as well as the IP joint of the right thumb. No acute bony process is seen. Impression dictated by: Supa Morales Jr., D.O. 10/10/2024 2:35 PM Dictation Location: [place] [address] Electronically authenticated by: [id number] Y Date: 4:35 Dictated By: Supa Morales M.D. Signed By:10/10/241436 DD/ 34 TD/TT: Programming Intern: us Carmela Lester FISH EGG PACKER IMG XR PROCEDURES Final Result * [facility] CMP (CMP) (FOR REMOTE [facility] USE) (09/07/2024 9:48 AM EDT) SODIUM 143 136 - 145 mmol/L [facility] POTASSIUM 4.2 3.5 - 5.1 mmol/L [facility] CHLORIDE 104 98 - 107 mmol/L [facility] CARBON DIOXIDE 28.5 21.0 - 32.0 mmol/L [facility] ANION GAP 14.7 TBH GLUCOSE 92 74 - 106 mg/dL [facility] BLOOD UREA NITROGEN 8.0 7.0 - 18.0 mg/dL [facility] CREATININE 0.59 0.55 - 1.02 mg/dL TBH TBH EGFR-AF GERMAN >60 >=60 mL/min/1. 73m 2 TBH TBH EGFR-NON AF GERMAN >60 >=60 mL/min/1. 73m 2 TBH BUN CREATININE RATIO 13.6 TBH CALCIUM 9.1 8.5 - 10.1 mg/dL [facility] BILIRUBIN TOTAL 0.6 0.2 - 1.0 mg/dL [facility] ASPARTATE AMINO TRANSFERASE 25 15 - 37 U/L TBH ALANINE AMINOTRANSFERASE 25 14 - 59 U/L TBH ALKALINE PHOSPHATASE 66 46 - 116 U/L [facility] TOTAL PROTEIN 6.9 6.4 - 8.2 g/dL TBH ALBUMIN LEVEL 3.7 3.4 - 5.0 g/dL [facility] GLOBULIN 3.2 g/dL TBH ALBUMIN GLOBULIN RATIO 1.2 TBH 09/07/2024 9:48 AM EDT 09/07/2024 9:50 AM EDT Narrative CLINISYNC - 09/07/2024 10:46 AM EDT Carmela Lester NP CLINISYNC Final Result [facility] * ALL THYROXINE (T4) FREE (09/07/2024 9:48 AM EDT) FREE T4 0.96 0.76 - 1.46 ng/dL TB 09/07/2024 9:48 AM EDT 09/07/2024 9:50 AM EDT Narrative CLINISYNC - 09/07/2024 11:56 AM EDT Carmela Lester NP CLINISYNC Final Result Performing Organization Address [facility] Co de Phone Number [facility] * ALL THYROID STIM HORMONE (09/07/2024 9:48 AM EDT) THYROID STIMULATING HORMONE 0.499 0.358 - 3.740 uIU/mL TB 09/07/2024 9:48 AM EDT 09/07/2024 9:50 AM EDT Narrative CLINISYNC - 09/07/2024 10:46 AM EDT Carmela Lester NP CLINISYNC Final Result Performing Organization Address [facility] de Phone Number CLINISYNC TB * (ABNORMAL) ALL LIPID PROFILE (FASTING) (09/07/2024 9:48 AM EDT) TRIGLYCERIDES 122 <=150 mg/dL [facility]H CHOLESTEROL 145 <=200 mg/dL TB HDL CHOLESTEROL 90(H) 40 - 60 mg/dL TB Comment: > or =60 mg/dl - LOW CARDIOVASCULAR RISK <40 mg/dl - HIGH CARDIOVASCULAR RISK LDL CHOLESTEROL CALCULATED 31.0 mg/dL TB Comment: <100 mg/dl OPTIMAL 100-129 mg/dl NEAR OR ABOVE OPTIMAL 130-159 mg/dl BORDERLINE HIGH 160-189 mg/dl HIGH >190 mg/dl VERY HIGH VLDL CHOLESTEROL 24.4 mg/dL [facility] CHOL HDL RATIO 1.6 [facility] Comment: 3.3 - 4.4 LOW RISK 4.4 - 7.1 AVERAGE RISK 7.1 - 11.0 MODERATE RISK >11.0 HIGH RISK 09/07/2024 9:48 AM EDT 09/07/2024 9:50 AM EDT Narrative CLINISYNC - 09/07/2024 10:46 AM EDT us Carmela Lester NP CLINISYNC Final Result [facility] * ALL CBC WITH AUTO DIFF (09/07/2024 9:48 AM EDT) TB WBC 6.0 4.0 - 11.0 10 3/uL [facility] TB RBC 4.33 4.20 - 5.40 10 6/uL [facility]H TB HGB 13.7 12.0 - 16.0 g/dL TB TB HCT 41.2 36.0 - 48.0 % TB TB MCV 95.2 81.0 - 99.0 fL TB TB MCH 31.6 26.7 - 34.0 pg TB TB MCHC 33.3 29.9 - 35.2 g/dL TB TB RDW 11.8 11.0 - 15.0 % TB TB PLT 249 150 - 450 10 3/uL TB TB MPV 11.5 9.5 - 13.5 fL TB NEUTROPHILS PERCENT AUTO 51.1 43.0 - 75.0 % TB LYMPHOCYTES PERCENT AUTO 35.1 20.5 - 60.0 % TB MONOCYTES PERCENT AUTO 9.4 1.7 - 12.0 % TB TBH EO % 2.6 0.9 - 7.0 % TBH BASOPHILS PERCENT AUTO 1.5 0.2 - 2.0 % TBH IMMATURE GRANULOCYTES PCT AUTO 0.3 0.0 - 0.5 % TBH NEUTROPHILS ABSOLUTE AUTO 3.1 1.4 - 6.5 10 3/uL TBH LYMPHOCYTES ABSOLUTE AUTO 2.1 1.2 - 3.8 10 3/uL TBH MONOCYTES ABSOLUTE AUTO 0.6 0.3 - 0.8 10 3/uL TBH TBH EO # 0.2 0.0 - 0.7 10 3/uL TBH BASOPHILS ABSOLUTE AUTO 0.1 0.0 - 0.1 10 3/uL TBH IMMATURE GRANULOCYTES ABS AUTO 0.02 0.00 - 0.03 10 3/uL TBH 09/07/2024 9:48 AM EDT 09/07/2024 9:50 AM EDT Narrative CLINISYNC - 09/07/2024 10:21 AM EDT Carmela Lester NP CLINISYNC Final Result Performing Organization Address [facility] de Phone Number CLINISYNC TB * (ABNORMAL) [facility] URINE MICROSCOPIC ONLY (09/07/2024 9:41 AM EDT) TBH WBC 0-2(A) NONE SEEN #/HPF TBH TBH RBC 0-2 0 - 2 #/HPF TBH BACTERIA URINE TRACE(A) NONE SEEN #/HPF TBH MUCUS URINE TRACE(A) NONE SEEN TBH SQUAMOUS EPITHELIAL CELL URINE FEW(A) NONE/RARE #/LPF TBH CRYSTALS SEEN? None Seen None Seen #/HPF TBH CAST SEEN? NONE SEEN NONE SEEN #/LPF TBH 09/07/2024 9:41 AM EDT 09/07/2024 9:50 AM EDT Narrative CLINISYNC - 09/07/2024 11:21 AM EDT Carmela Lester NP CLINISYNC Final Result Performing Organization Address [facility] Co de Phone Number CLINISYNC TB * (ABNORMAL) TBH UA (CLEAN/CATCH) MICROSCOPIC IF INDICATE (09/07/2024 9:41 AM EDT) Pathologist [facility] COLOR URINE LT. YELLOW YELLOW TBH CLARITY URINE CLEAR CLEAR TBH SPECIFIC GRAVITY URINE 1.015 1.005 - 1.025 TBH PH URINE 6.5 5.0 - 9.0 TBH PROTEIN URINE NEGATIVE NEG/TRACE mg/dL TBH GLUCOSE URINE UA NEGATIVE NEGATIVE mg/dL TBH BILIRUBIN URINE NEGATIVE NEGATIVE TBH KETONES URINE NEGATIVE NEGATIVE mg/dL TBH BLOOD URINE NEGATIVE NEGATIVE TBH NITRITE URINE NEGATIVE NEGATIVE TBH UROBILINOGEN URINE 0.2 0.2 - 1.0 EU/dL TBH LEUKOCYTE ESTERASE URINE TRACE(A) NEGATIVE TBH URINE MICROSCOPIC INDICATED YES TBH 09/07/2024 9:41 AM EDT 09/07/2024 9:50 AM EDT [facility] CLINISYTX - 09/07/2024 11:21 AM EDT Carmela Lester NP CLINISYNC Final Result Performing Organization Address [facility] de Phone Number [facility] * TB MICROALB CREAT RATIO RANDOM (09/07/2024 9:41 AM EDT) [facility] MICROALBUMIN URINE RANDOM <1.3 <=30.0 mg/dL TB CREATININE URINE RANDOM 86.59 20.00 - 300.00 mg/dL TB 09/07/2024 9:41 AM EDT 09/07/2024 9:50 AM EDT [facility] CLINISYTX - 09/07/2024 10:26 AM EDT Carmela Lester NP CLINISYNC Final Result Performing Organization Address [facility] Co de Phone Number CLINISYTX TB * Cologuard?? colon cancer screening (02/25/2023 7:15 AM EST) [facility] NONINV COLON CA DNA+OCC BLD SCRN STL-IMP Negative Negative 03/04/2023 5:59 AM EST tab ticketbroker (CLIA #:[id number]) Comment: NEGATIVE TEST RESULT. A negative Cologuard [...] (Pushpa Rashid al, N Engl J Med 2014;370(14):1680-9746) The normal value (reference range) for this assay is negative. COLOGUARD RE-SCREENING RECOMMENDATION: Periodic colorectal cancer screening is an important part of preventive healthcare for asymptomatic individuals at average risk for colorectal cancer. Following a negative Cologuard result, the [place] [employer] and U.S. Multi-Society Task Force screening guidelines recommend a Cologuard re-screening interval of 3 years. References: [place] [employer] Guideline for Colorectal Cancer Screening: https://www.cancer.org/cancer/jbrly-qenyli-fihwcx/gqeqcjllv-bdzmgjnmp-cpbqpsk/ac s-rec ommendations.html.; Helder DK, Akhil CR, Rikki SolerK, Colorectal Cancer Screening: Recommendations for Physicians and Patients from the U.S. Multi-Society Task Force on Colorectal Cancer Screening , Am J Gastroenterology 2017; 112:1396-4242. TEST DESCRIPTION: Composite algorithmic analysis of stool [...] (Pushpa Rashid al, N Engl J Med 2014;370(14):0884-4785.) Cologuard may produce a false negative or false positive result (no colorectal cancer or precancerous polyp present at colonoscopy follow up). A negative Cologuard test result does not guarantee the absence of CRC or advanced adenoma (pre-cancer). The current Cologuard screening interval is every 3 years. ([place] [employer] and U.S. Multi-Society Task Force). Cologuard performance data in a 10,000 patient pivotal study using colonoscopy as the reference method can be accessed at the following location: www.[employer].com/results. Additional description of the Cologuard test process, warnings and precautions can be found at www.[employer].com. Stool specimen (specimen) 02/25/2023 7:15 AM EST 02/26/2023 11:03 AM EST Carmela Lester NP LAB MOLECULAR DIAGNOSTICS ORDER FANY Final Result .[employer] (CLIA #:[id number]) [address] [id number], tab ticketbroker (CLIA #:[id number]) [address] [id number] from Last 3 Months or Most Recently Relevant to Health Maintenance Insurance [employer] Care Teams Furniture Fabricator Relationship Specialty Start Date End Date Parviz Stewart MD PCP - General Family Medicine 05/10/23 Carmela Lester NP Referring Physician Nurse Practitioner 10/04/22 Carmela Lester NP Nurse Practitioner Family Medicine 05/10/23 Nai Chávez DO [id number] [place] [address] Referring Physician Neurology 03/27/24 Jessica Venegas NP [id number] [place] [address] Nurse Practitioner Neurology 03/27/24
--- OUTSIDE RECORDS SUMMARY | 2024-11-21 13:03 | XMS_ITS | Encounter Summary ---
Author Organization [facility] Address [address] [place] [address] Care Team Providers Care Rn Heart Name Role Phone Carmela Lester NP Unavailable [phone] Parviz Stewart MD Primary Care Provider [phone] Carmela Lester NP Unavailable [phone] Nai Chávez DO Unavailable [phone] Jessica Venegas WOOD BARREL RECONDITIONER Unavailable [phone] Reason for Visit * Reason Comments Med Refill Encounter Details Date Type Department Care Team (Late st Contact Info) Description 01/13/2024 Refill [facility] [address] [place] [address] Carmela Lester NP [address] [place] [address] Essential hypertension Social History Tobacco Use Types [...] documented in this encounter Plan of Treatment Not on file documented as of this encounter Visit Diagnoses Diagnosis Essential hypertension Unspecified essential hypertension documented in this encounter Care Teams Rn Heart Relationship Specialty Start Date End Date Parviz Stewart MD PCP - General Family Medicine 05/10/23 Carmela Lester NP Referring Physician Nurse Practitioner 10/04/22 Carmela Lester NP Nurse Practitioner Family Medicine 05/10/23 Nai Chávez DO [address] [place] [address] Referring Physician Neurology 03/27/24 Jessica Venegas NP [address] [place] [address] Nurse Practitioner Neurology 03/27/24 documented as of this encounter
--- OUTSIDE RECORDS SUMMARY | 2024-11-21 13:03 | XMS_ITS | Encounter Summary ---
Author Organization [facility] Address [address] [place] [address] Care Team Providers Care Town Justice Name Role Phone Carmela Lester NP Unavailable [phone] Parviz Stewart MD Primary Care Provider [phone] Carmela Lester NP Unavailable [phone] Nai Chávez DO Unavailable [phone] Jessica Venegas PATENTED HOGSHEAD ASSEMBLER Unavailable [phone] Encounter Details Date Type Department Care Team (Late st Contact Info) Description 05/27/2023 Clinisync Result Encounter [facility] External Department Unsolicited Carmela Lester NP [address] [place] [address] Social History Tobacco Use Types Packs/Day Years [...] PM EDT Narrative 05/27/2023 2:44 [place] [address] Cardiology Report Signed Patient: DIANE CANAS MR#: [id number] : 1970 Acct:[id number] Age/Sex: 53 / F ADM Date: 05/26/23 Loc: CARD Attending Dr: Carmela Lester NP Ordering Physician: Carmela Lester NP Date of Service: 05/26/23 Procedure(s): CA echo doppler complete Accession Number(s): [id number] cc: Carmela Lester NP Patient Name: DIANE CANAS MR#: [id number] : 1970 Exam Date: 05/26/2023 Ordering Doctor: DEREK Lester CNP ECHOCARDIOGRAM REPORT PROCEDURE: CA ECHO DOPPLER COMPLETE INDICATIONS: Uncontrolled hypertension, CABGx1, ID x 2, former smoker COMPARISON: None. DESCRIPTION: [...] Zapata M.D. Signed By: 05/27/23 1444 DD/ 1443 TD/TT: Rabbit Breeder: Procedure Note Radiology, Radiologist, MD - 05/27/2023 [place] [address] Cardiology Report Signed Patient: DIANE CANAS RMR#: [id number] : 1970Acct:[id number] Age/Sex: 53 / FADM Date: 05/26/23 Loc: CARD Attending Dr: Carmela Lester NP Ordering Physician: Carmela Lester NP Date of Service: 05/26/23 Procedure(s): CA echo doppler complete Accession Number(s): [id number] cc: Carmela Lester NP Patient Name: DIANE CANAS MR#: [id number] : 1970 Exam Date: 05/26/2023 Ordering Doctor: DEREK Lester CNP ECHOCARDIOGRAM REPORT PROCEDURE: CA ECHO DOPPLER COMPLETE INDICATIONS: Uncontrolled hypertension, CABGx1, ID x 2, former smoker COMPARISON: None. DESCRIPTION: [...] Nino Zapata M.D. Signed By:05/27/23 1444 DD/ 144 TD/TT: Rabbit Breeder: Carmela Lester NP CLINISYNC IMAGING Final Result documented in this encounter Visit Diagnoses Not on filedocumented in this encounter Care Teams Town Justice Relationship Specialty Start Date End Date Parviz Stewart MD PCP - General Family Medicine 05/10/23 Carmela Lester NP Referring Physician Nurse Practitioner 10/04/22 Carmela Lester NP Nurse Practitioner Family Medicine 05/10/23 Nai Chávez DO [address] [place] [address] Referring Physician Neurology 03/27/24 Jessica Venegas NP [address] [place] [address] Nurse Practitioner Neurology 03/27/24 documented as of this encounter
--- OUTSIDE RECORDS SUMMARY | 2024-11-21 13:03 | XMS_ITS | Encounter Summary ---
Author Organization [facility] Address [address] [place] [address] Care Team Providers Care Director Organizational Name Role Phone Carmela Lester VIOLIN TEACHER Unavailable [phone] Parviz Stewart MD Primary Care Provider [phone] Carmela Lester VIOLIN TEACHER Unavailable [phone] Nai Chávez DO Unavailable [phone] Jessica Venegas VIOLIN TEACHER Unavailable [phone] Encounter Details Date Type Department Care Team (Late st Contact Info) Description 10/10/2024 Abstract [facility] [address] [place] [address] Carmela Lester NP [address] [place] [address] Social History Tobacco Use Types Packs/Day Years [...] on filedocumented in this encounter Care Teams Director Organizational Relationship Specialty Start Date End Date Parviz Stewart MD PCP - General Family Medicine 05/10/23 Carmela Lester NP Referring Physician Nurse Practitioner 10/04/22 Carmela Lester NP Nurse Practitioner Family Medicine 05/10/23 Nai Chávez DO [address] [place] [address] Referring Physician Neurology 03/27/24 Jessica Venegas NP [address] [place] [address] Nurse Practitioner Neurology 03/27/24 documented as of this encounter
--- OUTSIDE RECORDS SUMMARY | 2024-11-21 13:03 | XMS_ITS | Encounter Summary ---
Author Organization [facility] Address [address] [place] [address] Care Team Providers Care National Sales Executive Name Role Phone Carmela Lester NP Unavailable [phone] Parviz Stewart MD Primary Care Provider Carmela Lester NP Unavailable [phone] Nai Chávez DO Unavailable [phone] Jessica Venegas MARINE SCIENTIST Unavailable [phone] Reason for Visit * Reason Comments Med Change Request Encounter Details Date Type Department Care Team (Late st Contact Info) Description 11/22/2023 Refill [facility] [address] [place] [address] Carmela Lester NP [address] [place] [address] Coronary artery disease involving [place] coronary artery of [place] heart without angina pectoris Social History Tobacco [...] Visit Diagnoses Diagnosis Coronary artery disease involving [place] coronary artery of [place] heart without angina pectoris documented in this encounter Care Teams National Sales Executive Relationship Specialty Start Date End Date Parviz Stewart MD PCP - General Family Medicine 05/10/23 Carmela Lester NP Referring Physician Nurse Practitioner 10/04/22 Carmela Lester NP Nurse Practitioner Family Medicine 05/10/23 Nai Chávez DO [address] [place] [address] Referring Physician Neurology 03/27/24 Jessica Venegas NP [address] [place] [address] Nurse Practitioner Neurology 03/27/24 documented as of this encounter
--- OUTSIDE RECORDS SUMMARY | 2024-11-21 13:03 | XMS_ITS | Encounter Summary ---
Author Organization [facility] Address [address] [place] [address] Care Team Providers Care Sea Shell Gatherer Name Role Phone Carmela Lester NP Unavailable [phone] aPrviz Stewart MD Primary Care Provider [phone] Carmela Lester NP Unavailable [phone] Nai Chávez DO Unavailable [phone] Jessica Venegas NP Unavailable [phone] Encounter Details Date Type Department Care Team (Late st Contact Info) Description 04/03/2024 Orders Only [facility] [address] [place] [address] Carmela Lester NP [address] [place] [address] Social History Tobacco Use Types Packs/Day Years [...] NERVE CONDUCTION STUDY (10/01/2020 2:37 PM EDT) Carmela Lester NP NEUROLOGY ORDERABLES Final Resu lt documented in this encounter Visit Diagnoses Not on filedocumented in this encounter Care Teams Sea Shell Gatherer Relationship Specialty Start Date End Date Parviz Stewart MD PCP - General Family Medicine 05/10/23 Carmela Lester NP Referring Physician Nurse Practitioner 10/04/22 Carmela Lester NP Nurse Practitioner Family Medicine 05/10/23 Nai Chávez DO [address] [place] [address] Referring Physician Neurology 03/27/24 Jessica Venegas NP [address] [place] [address] Nurse Practitioner Neurology 03/27/24 documented as of this encounter
--- OUTSIDE RECORDS SUMMARY | 2024-11-21 13:03 | XMS_ITS | Clinical Summary ---
Author Organization [facility] Address [id number] [address] [place] [address] Care Team Providers Care Financial Sales Consultant Name Role Phone Osieljaneinocencio Carmela Karlene SHELTERED WORKSHOP WORKER-BEHAVIORAL HEALTH CLINICIAN Primary Care Provider Social History Tobacco Use [...] Name:JOSE MARIA MENDOZA Date of :1959 Address: [place] [address] Payer ID:Not on file Type:Not on file Address: [facility] [address] [id number] Care Teams Financial Sales Consultant Relationship Specialty Start Date End Date Carmela Lester, SHELTERED WORKSHOP WORKER-BEHAVIORAL HEALTH CLINICIAN PCP - General Nurse Practitioner 10/21/20
--- OUTSIDE RECORDS SUMMARY | 2024-11-21 15:55 | XMS_ITS | Encounter Summary ---
Author Organization [facility] Address [address] [place] [address] Care Team Providers Care Audit Officer Name Role Phone Carmela Lseter NP Unavailable [phone] Parviz Stewart MD Primary Care Provider [phone] Carmela Lester APPLICATION SECURITY CONSULTANT Unavailable [phone] Nai Chávez DO Unavailable [phone] Jessica Venegas APPLICATION SECURITY CONSULTANT Unavailable [phone] Encounter Details Date Type Department Care Team (Late st Contact Info) Description 05/30/2023 Orders Only [facility] [address] [place] [address] Carmela Lester NP [address] [place] [address] Social History Tobacco Use Types Packs/Day Years [...] on filedocumented in this encounter Care Teams Audit Officer Relationship Specialty Start Date End Date Parviz Stewart MD PCP - General Family Medicine 05/10/23 Carmela Lester NP Referring Physician Nurse Practitioner 10/04/22 Carmela Lester NP Nurse Practitioner Family Medicine 05/10/23 Nai Chávez DO [address] [place] [address] Referring Physician Neurology 03/27/24 Jessica Venegas NP [address] [place] [address] Nurse Practitioner Neurology 03/27/24 documented as of this encounter
--- OUTSIDE RECORDS SUMMARY | 2024-11-21 15:55 | XMS_ITS | Encounter Summary ---
Author Organization [facility] Address [address] [place] [address] Care Team Providers Care Test Desk Trouble Locator Name Role Phone Carmela Lester NP Unavailable [phone] Parviz Stewart MD Primary Care Provider [phone] Carmela Lester NP Unavailable [phone] Nai Chávez DO Unavailable [phone] Jessica Venegas HYDRAULIC SPECIALIST Unavailable [phone] Reason for Visit * Reason Comments Med Change Request Encounter Details Date Type Department Care Team (Late st Contact Info) Description 11/22/2023 Refill [facility] [address] [place] [address] Carmela Lester NP [address] [place] [address] Coronary artery disease involving telida coronary artery of telida heart without angina pectoris Social History Tobacco [...] Visit Diagnoses Diagnosis Coronary artery disease involving telida coronary artery of telida heart without angina pectoris documented in this encounter Care Teams Test Desk Trouble Locator Relationship Specialty Start Date End Date Parviz Stewart MD PCP - General Family Medicine 05/10/23 Carmela Lester NP Referring Physician Nurse Practitioner 10/04/22 Carmela Lester NP Nurse Practitioner Family Medicine 05/10/23 Nai Chávez DO [address] [place] [address] Referring Physician Neurology 03/27/24 Jessica Venegas NP [address] [place] [address] Nurse Practitioner Neurology 03/27/24 documented as of this encounter
--- OUTSIDE RECORDS SUMMARY | 2024-11-21 15:55 | XMS_ITS | Clinical Summary ---
Author Organization [facility] Address [address] [place] [address] Care Team Providers Care Pig Furnace Operator Name Role Phone Carmela Lester NP Unavailable [phone] Parviz Stewart MD Primary Care Provider Carmela Lester NP Unavailable [phone] Nai Chávez DO Unavailable [phone] Jessica Venegas RESEARCH ASSISTANT PROFESSOR Unavailable [phone] Allergies Active Allergy Reactions Criticality Noted [...] MG SL tabletIndications :Coronary artery disease involving [place] coronary artery of [place] heart without angina pectoris Place 1 tablet (0.4 mg) under the tongue every 5 (five) minutes if needed for chest pain If after 3 doses still chest pain, go to ER/call 911 25 tablet 4 Active atorvastatin (Lipitor) 80 MG tabletIndications :Coronary artery disease involving [place] coronary artery of [place] heart without angina pectoris Take 1 tablet (80 mg) by mouth at bedtime Take pill in the evening time not morning 90 tablet 5 12/11/19 25 Active ezetimibe (Zetia) 10 MG tabletIndications :Coronary artery disease involving [place] coronary artery of [place] heart without angina pectoris Take 1 tablet (10 mg) by mouth Daily 90 tablet 5 12/11/19 25 Active isosorbide mononitrate ER (Imdur) 120 MG 24 hr tabletIndications :Coronary artery disease involving [place] coronary artery of [place] heart without angina pectoris,Essentia l hypertension Take [...] of the risks of continued smoking: stroke, MD, all forms of cancer, lung disease, and [...] radiculopathy 09/26/2023 ERICK (obstructive sleep apnea) 09/26/2023 Assessment & Plan [...] to cardiology w her hx of CAD [facility], would like to see Dr Lombardo Assessment [...] of the risks of continued smoking: stroke, MD, all forms of cancer, lung disease, and [...] Care Team Description 10/17/2024 Refill [facility] [address] [place] [address] Carmela Lester NP Bilateral hand pain 10/17/2024 [facility] [address] [place] [address] Carmela Lester NP 10/16/2024 [facility] [address] [place] [address] Cramela Lester NP Bilateral hand pain (Primary Dx) 10/10/2024 Abstract [facility] [address] [place] [address] Carmela Lester NP 10/10/2024 Clinisync Result Encounter NOMS External Department Unsolicited Carmela Lester NP 09/11/2024 2:20 PM EDT Office Visit [facility] [address] [place] [address] Carmela Lester NP Primary hypertension (Primary Dx); Coronary artery disease involving [place] coronary artery of [place] heart without angina pectoris ; Hypothyroidism (acquired) ; Cigarette nicotine dependence without complication; Mixed hyperlipidemia ; Essential hypertension ; Trapezius muscle spasm; Bilateral hand pain; Breast cancer screening declined 09/11/2024 Bamboo flowsheet [facility] [address] [place] [address] Carmela Lester NP 09/07/2024 Clinisync Result Encounter [...] AM EDT [facility] CMP (CMP) (FOR REMOTE [facility] USE) Routine 09/07/2024 9:48 AM EDT ALL CBC WITH AUTO DIFF Routine 09/07/2024 9:48 AM EDT [facility] URINE MICROSCOPIC ONLY Routine 09/07/2024 9:41 AM EDT [facility] UA (CLEAN/CATCH) MICROSCOPIC IF INDICATE Routine 09/07/2024 9:41 AM EDT [facility] MICROALB CREAT RATIO RANDOM Routine 09/07/2024 9:41 [...] EDT Narrative 10/10/2024 2:37 [place] [address] XRay Report Signed Patient: DIANE CANAS MR#: [id number] : 1970 Acct:[id number] Age/Sex: 54 / F ADM Date: 10/10/24 Loc: RAD Attending Dr: Carmela Lester NP Ordering Physician: Cramela Lester NP Date of Service: 10/10/24 Procedure(s): XR hand ALYSSA 2V Accession Number(s): [id number] cc: Carmela Lester NP [address] [place] [address] Patient Name: DIANE CANAS MRN: [facility]:[id number] date: 1970 Sex: F Assigned Patient Location: RAD Current Patient Location: RAD Accession/Order Number: [id number] Exam Date: 10/10/2024 14:34 Report Date: 10/10/2024 [...] Jr., D.O. 10/10/2024 2:35 PM Dictation Location: [place] [address] Electronically authenticated by: [id number] Y Date: 10/10/2024 14:35 Dictated By: Supa Morales M.D. Signed By: 10/10/24 1437 DD/ 34 TD/TT: Grid Inspector: Procedure Note Radiology, Radiologist, MD - 10/10/2024 [place] [address] XRay Report Signed Patient: DIANE CANAS RMR#: [id number] : 1970Acct:[id number] Age/Sex: 54 / FADM Date: 10/10/24 Loc: KATRINA Attending Dr: Carmela Lester NP Ordering Physician: Carmela Lester NP Date of Service: 10/10/24 Procedure(s): XR hand ALYSSA 2V Accession Number(s): [id number] cc: Carmela Lester NP [address] [place] [address] Patient Name: DIANE CANAS MRN: [facility]:[id number] date: 1970 Sex: F Assigned Patient Location: [facility] Current Patient Location: [facility] Accession/Order Number: [id number] Exam Date: 10/10/2024 14:34 Report Date: 10/10/2024 [...] Jr., D.O. 10/10/2024 2:35 PM Dictation Location: [place] [address] Electronically authenticated by: [id number] Y Date: 4:35 Dictated By: Supa Morales M.D. Signed By:10/10/241436 DD/ 34 TD/TT: Grid Inspector: us Carmela Lester RESEARCH ASSISTANT PROFESSOR IMG XR PROCEDURES Final Result * [facility] CMP (CMP) (FOR REMOTE [facility] USE) (09/07/2024 9:48 AM EDT) SODIUM 143 136 - 145 mmol/L [facility] POTASSIUM 4.2 3.5 - 5.1 mmol/L [facility] CHLORIDE 104 98 - 107 mmol/L [facility] CARBON DIOXIDE 28.5 21.0 - 32.0 mmol/L [facility] ANION GAP 14.7 [facility] GLUCOSE 92 74 - 106 mg/dL [facility] BLOOD UREA NITROGEN 8.0 7.0 - 18.0 mg/dL [facility] CREATININE 0.59 0.55 - 1.02 mg/dL [facility]H EGFR-AF [place] >60 >=60 mL/min/1. 73m 2 [facility] TBH EGFR-NON AF [place] >60 >=60 mL/min/1. 73m 2 [facility] BUN [...] Carmela Lester NP CLINISYNC Final Result [facility] * ALL THYROXINE (T4) FREE (09/07/2024 9:48 AM EDT) FREE T4 0.96 0.76 - 1.46 ng/dL TB 09/07/2024 9:48 AM EDT 09/07/2024 9:50 AM EDT Narrative CLINISYNC - 09/07/2024 11:56 AM EDT Carmela Lester NP CLINISYNC Final Result Performing Organization Address [facility] Co de Phone Number [facility] * ALL THYROID STIM HORMONE (09/07/2024 9:48 AM EDT) THYROID STIMULATING HORMONE 0.499 0.358 - 3.740 uIU/mL TB 09/07/2024 9:48 AM EDT 09/07/2024 9:50 AM EDT Narrative CLINISYNC - 09/07/2024 10:46 AM EDT Carmela Lester NP CLINISYNC Final Result Performing Organization Address [facility] de Phone Number CLINISYNC TB * (ABNORMAL) [...] mg/dl VERY HIGH VLDL CHOLESTEROL 24.4 mg/dL [facility] CHOL HDL RATIO 1.6 [facility] Comment: 3.3 - 4.4 LOW RISK 4.4 - 7.1 AVERAGE RISK 7.1 - 11.0 MODERATE RISK >11.0 HIGH RISK 09/07/2024 9:48 AM EDT 09/07/2024 9:50 AM EDT Narrative CLINISYNC - 09/07/2024 10:46 AM EDT us Carmela Lester NP CLINISYNC Final Result [facility] * ALL CBC WITH AUTO DIFF (09/07/2024 [...] NP CLINISYNC Final Result Performing Organization Address [facility] de Phone Number CLINISYNC TB * (ABNORMAL) [...] NP CLINISYNC Final Result Performing Organization Address [facility] Co de Phone Number CLINISYNC TB * (ABNORMAL) [facility] UA (CLEAN/CATCH) MICROSCOPIC IF INDICATE (09/07/2024 9:41 AM EDT) Pathologist [facility] COLOR URINE LT. YELLOW YELLOW [facility] CLARITY [...] 9:41 AM EDT 09/07/2024 9:50 AM EDT [facility] CLINISYMS - 09/07/2024 11:21 AM EDT Carmela Lester NP CLINISYNC Final Result Performing Organization Address [facility] de Phone Number [facility] * TB MICROALB CREAT RATIO RANDOM (09/07/2024 9:41 AM EDT) [facility] MICROALBUMIN URINE RANDOM <1.3 <=30.0 mg/dL TB CREATININE URINE RANDOM 86.59 20.00 - 300.00 mg/dL TB 09/07/2024 9:41 AM EDT 09/07/2024 9:50 AM EDT [facility] CLINISYMS - 09/07/2024 10:26 AM EDT Carmela Lester NP CLINISYNC Final Result Performing Organization Address [facility] Co de Phone Number CLINISYMS TB * Cologuard?? colon cancer screening (02/25/2023 7:15 AM EST) [facility] NONINV COLON CA DNA+OCC BLD SCRN STL-IMP Negative Negative 03/04/2023 5:59 AM EST [employer] (CLIA #:[id number]) Comment: NEGATIVE TEST RESULT. A negative Cologuard [...] (Pushpa Rashid al, N Engl J Med 2014;370(14):7854-7236) The normal value (reference range) for this assay is negative. COLOGUARD RE-SCREENING RECOMMENDATION: Periodic colorectal cancer screening is an important part of preventive healthcare for asymptomatic individuals at average risk for colorectal cancer. Following a negative Cologuard result, the [place] [employer] Society and U.S. Multi-Society Task Force screening guidelines recommend a Cologuard re-screening interval of 3 years. References: [place] [employer] Guideline for Colorectal Cancer Screening: https://www.cancer.org/cancer/wogmt-lwawti-nwzahs/zbvclrmcn-dscjxbgvz-xyteuvp/ac s-rec ommendations.html.; Helder DK, Akhil CR, Rikki SolerK, Colorectal Cancer Screening: Recommendations for Physicians and Patients from the U.S. Multi-Society Task Force on Colorectal Cancer Screening , Am J Gastroenterology 2017; 112:1656-6723. TEST DESCRIPTION: Composite algorithmic analysis of stool [...] (Pushpa Rashid al, N Engl J Med 2014;370(14):7592-1129.) Cologuard may produce a false negative or false positive result (no colorectal cancer or precancerous polyp present at colonoscopy follow up). A negative Cologuard test result does not guarantee the absence of CRC or advanced adenoma (pre-cancer). The current Cologuard screening interval is every 3 years. ([place] [employer] Society and U.S. Multi-Society Task Force). Cologuard performance data in a 10,000 patient pivotal study using colonoscopy as the reference method can be accessed at the following location: www.[employer].com/results. Additional description of the Cologuard test process, warnings and precautions can be found at www.[employer] Solutionsrd.com. Stool specimen (specimen) 02/25/2023 7:15 AM EST 02/26/2023 11:03 AM EST Carmela Lester NP LAB MOLECULAR DIAGNOSTICS ORDER FANY Final Result .[employer] (CLIA #:[id number]) [address] [id number], [employer] (CLIA #:[id number]) [address] [address] from Last 3 Months or Most Recently Relevant to Health Maintenance Insurance [employer] Care Teams Pig Furnace Operator Relationship Specialty Start Date End Date Parviz Stewart MD PCP - General Family Medicine 05/10/23 Carmela Lester NP Referring Physician Nurse Practitioner 10/04/22 Carmela Lester NP Nurse Practitioner Family Medicine 05/10/23 Nai Chávez DO [address] [place] [address] Referring Physician Neurology 03/27/24 Jessica Venegas NP [address] [place] [address] Nurse Practitioner Neurology 03/27/24
--- OUTSIDE RECORDS SUMMARY | 2024-11-21 15:55 | XMS_ITS | Encounter Summary ---
Author Organization [facility] Address [address] [place] [address] Care Team Providers Care Marketing Account Executive Name Role Phone Carmela Lester NP Unavailable [phone] Parviz Stewart MD Primary Care Provider [phone] Carmela Lester NP Unavailable [phone] Nai Chávez DO Unavailable [phone] Jessica Venegas BAKERY WORKER CONVEYOR LINE Unavailable [phone] Encounter Details Date Type Department Care Team (Late st Contact Info) Description 05/27/2023 Clinisync Result Encounter [facility] External Department Unsolicited Carmela Lester NP [address] [place] [address] Social History Tobacco Use Types Packs/Day Years [...] PM EDT Narrative 05/27/2023 2:44 [place] [address] Cardiology Report Signed Patient: DIANE CANAS MR#: [id number] : 1970 Acct:[id number] Age/Sex: 53 / F ADM Date: 05/26/23 Loc: CARD Attending Dr: Carmela Lester NP Ordering Physician: Carmela Lester NP Date of Service: 05/26/23 Procedure(s): CA echo doppler complete Accession Number(s): [id number] cc: Carmela Lester NP Patient Name: DIANE CANAS MR#: [id number] : 1970 Exam Date: 05/26/2023 Ordering Doctor: DEREK Lester CNP ECHOCARDIOGRAM REPORT PROCEDURE: CA ECHO DOPPLER COMPLETE INDICATIONS: Uncontrolled hypertension, CABGx1, [place] x 2, former smoker COMPARISON: None. DESCRIPTION: [...] Signed By: 05/27/23 1444 DD/ 1443 TD/TT: Windows Server Architect: Procedure Note Radiology, Radiologist, MD - 05/27/2023 [place] [address] Cardiology Report Signed Patient: DIANE CANAS RMR#: [id number] : 1970Acct:[id number] Age/Sex: 53 / FADM Date: 05/26/23 Loc: CARD Attending Dr: Carmela Lester NP Ordering Physician: Carmela Lester NP Date of Service: 05/26/23 Procedure(s): CA echo doppler complete Accession Number(s): [id number] cc: Carmela Lester NP Patient Name: DIANE CANAS MR#: [id number] : 1970 Exam Date: 05/26/2023 Ordering Doctor: DEREK Lester CNP ECHOCARDIOGRAM REPORT PROCEDURE: CA ECHO DOPPLER COMPLETE INDICATIONS: Uncontrolled hypertension, CABGx1, [place] x 2, former smoker COMPARISON: None. DESCRIPTION: [...] M.D. Signed By:05/27/23 1444 DD/ 144 TD/TT: Windows Server Architect: Carmela Lester NP [facility] Final Result documented in this encounter Visit Diagnoses Not on filedocumented in this encounter Care Teams Marketing Account Executive Relationship Specialty Start Date End Date Parviz Stewart MD PCP - General Family Medicine 05/10/23 Carmela Lester NP Referring Physician Nurse Practitioner 10/04/22 Carmela Lester NP Nurse Practitioner Family Medicine 05/10/23 Nai Chávez DO [address] [place] [address] Referring Physician Neurology 03/27/24 Jessica Venegas NP [address] [place] [address] Nurse Practitioner Neurology 03/27/24 documented as of this encounter
--- OUTSIDE RECORDS SUMMARY | 2024-11-21 15:55 | XMS_ITS | Clinical Summary ---
Author Organization [employer] Address [id number] [address] [place] [address] Care Team Providers Care Cutter Helper Name Role Phone Osieljaneinocencio Carmela Karlene CONTROL SPECIALIST-DUST MIXER Primary Care Provider Social History Tobacco Use [...] Name:JOSE MARIA MENDOZA Date of :1959 Address: [place] [address] Payer ID:Not on file Type:Not on file Address: [facility] [address] [id number] Care Teams Cutter Helper Relationship Specialty Start Date End Date Carmela Lester, CONTROL SPECIALIST-DUST MIXER PCP - General Nurse Practitioner 10/21/20
--- OUTSIDE RECORDS SUMMARY | 2024-11-21 15:55 | XMS_ITS | Clinical Summary ---
Author Organization [facility] Address [address] [place] [address] Care Team Providers Care Foreign Language Professor Name Role Phone Carmela Lester MD Primary Care Provider [phone] Allergies No known active allergies Medications allopurinol [...] to cardiology w her hx of CAD [facility], would like to see Dr Lombardo [...] drink = 0.6 oz pur e alcohol) [place] Safety & Environment Answer Date Rec orded [...] Done Comments CT Colonography 1971 Colonoscopy 1971 FOBT 1971 Sigmoidoscopy 1971 Depression Screening 1983 Hepatitis B Vaccines (1 of 3 - 19+ 3-dose series) 1990 Pap Smear 02/28/1992 Adult Tetanus 1993 Cervical Cancer Screening 2001 HPV/Cotest 2001 Mammogram 2011 Zoster Vaccines (1 of 2) 2021 FIT 02/26/2024 02/25/2023 COVID-19 Vaccine ( season) 2024 Influenza Vaccine (#1) 2024 , 01/01/2022, 01/03/2021, Additional history exists Colorectal Cancer Screening 02/25/2026 FIT-DNA 02/25/2026 02/25/2023 Pneumococcal Vaccine: Pediatrics (0 to 5 Years) [...] this topic Insurance [employer] Care Teams Foreign Language Professor Relationship Specialty Start Date End Date Carmela Lester MD [address] [place] [address] PCP - General Nurse Practitioner 06/08/23
--- OUTSIDE RECORDS SUMMARY | 2024-11-21 15:55 | XMS_ITS | Encounter Summary ---
Author Organization [facility] Address [address] [place] [address] Care Team Providers Care Mechanical Maintenance Name Role Phone Carmela Lester NP Unavailable [phone] Parviz Stewart MD Primary Care Provider Carmela Lester NP Unavailable [phone] Nai Chávez DO Unavailable [phone] Jessica Venegas NP Unavailable [phone] Encounter Details Date Type Department Care Team (Late st Contact Info) Description 04/03/2024 Orders Only [facility] [address] [place] [address] Carmela Lester NP [address] [place] [address] Social History Tobacco Use Types Packs/Day Years [...] on filedocumented in this encounter Care Teams Mechanical Maintenance Relationship Specialty Start Date End Date Parviz Stewart MD PCP - General Family Medicine 05/10/23 Carmela Lester NP Referring Physician Nurse Practitioner 10/04/22 Carmela Lester NP Nurse Practitioner Family Medicine 05/10/23 Nai Chávez DO [address] [place] [address] Referring Physician Neurology 03/27/24 Jessica Venegas NP [address] [place] [address] Nurse Practitioner Neurology 03/27/24 documented as of this encounter
--- OUTSIDE RECORDS SUMMARY | 2024-11-21 15:55 | XMS_ITS | Encounter Summary ---
Author Organization [facility] Address [address] [place] [address] Care Team Providers Care Painter Touch Up Name Role Phone Carmela Lester GROUND OPERATIONS SUPERVISOR Unavailable [phone] Parviz Stewart MD Primary Care Provider Carmela Lester GROUND OPERATIONS SUPERVISOR Unavailable [phone] Nai Chávez DO Unavailable [phone] Jessica Venegas GROUND OPERATIONS SUPERVISOR Unavailable [phone] Encounter Details Date Type Department Care Team (Late st Contact Info) Description 10/10/2024 Abstract [facility] [address] [place] [address] Carmela Lester NP [address] [place] [address] Social History Tobacco Use Types Packs/Day Years [...] on filedocumented in this encounter Care Teams Painter Touch Up Relationship Specialty Start Date End Date Parviz Stewart MD PCP - General Family Medicine 05/10/23 Carmela Lester NP Referring Physician Nurse Practitioner 10/04/22 Carmela Lester NP Nurse Practitioner Family Medicine 05/10/23 Nai Chávez DO [address] [place] [address] Referring Physician Neurology 03/27/24 Jessica Venegas NP [address] [place] [address] Nurse Practitioner Neurology 03/27/24 documented as of this encounter
--- OUTSIDE RECORDS SUMMARY | 2024-11-21 15:55 | XMS_ITS | Clinical Summary ---
Author Organization [facility] Address [address] [place] [address], [address] [place] [address] Care Team Providers Care Rn Travel Name Role Phone Unavailable Primary Care Provider [...]
--- OUTSIDE RECORDS SUMMARY | 2024-11-21 15:55 | XMS_ITS | Encounter Summary ---
Author Organization [facility] Address [address] [place] [address] Care Team Providers Care Vocational Nurse Lvn Name Role Phone Carmela Lester NP Unavailable [phone] Parviz Stewart MD Primary Care Provider Carmela Lester NP Unavailable [phone] Nai Chávez DO Unavailable [phone] Jessica Venegas PUTTER IN Unavailable [phone] Reason for Visit * Reason Comments Med Refill Encounter Details Date Type Department Care Team (Late st Contact Info) Description 01/13/2024 Refill [facility] [address] [place] [address] Carmela Lester NP [address] [place] [address] Essential hypertension Social History Tobacco Use Types [...] hypertension documented in this encounter Care Teams Vocational Nurse Lvn Relationship Specialty Start Date End Date Parviz Stewart MD PCP - General Family Medicine 05/10/23 Carmela Lester NP Referring Physician Nurse Practitioner 10/04/22 Carmela Lester NP Nurse Practitioner Family Medicine 05/10/23 Nai Chávez DO [address] [place] [address] Referring Physician Neurology 03/27/24 Jessica Venegas NP [address] [place] [address] Nurse Practitioner Neurology 03/27/24 documented as of this encounter
--- OUTSIDE RECORDS SUMMARY | 2024-11-21 15:55 | XMS_ITS | Encounter Summary ---
Author Organization [facility] Address [address] [place] [address] Care Team Providers Care Blueprint Tracer Name Role Phone Carmela Lester NP Unavailable [phone] Parviz Stewart MD Primary Care Provider Carmela Lester NP Unavailable [phone] Nai Chávez DO Unavailable [phone] eJssica Venegas PHERESIS SPECIALIST Unavailable [phone] Encounter Details Date Type Department Care Team (Late st Contact Info) Description 09/05/2023 Clinisync Result Encounter [facility] External Department Unsolicited Carmela Lester NP [address] [place] [address] Social History Tobacco Use Types Packs/Day Years [...] EDT Narrative 09/05/2023 6:54 [place] [address] Magnetic Resonance Report Signed Patient: DIANE CANAS MR#: [id number] : 1970 Acct:[id number] Age/Sex: 53 / F ADM Date: 09/02/23 Loc: MRI Attending Dr: Carmela Lester NP Ordering Physician: Carmela Lester NP Date of Service: 09/02/23 Procedure(s): MR cervical spine wo con Accession Number(s): [id number] cc: Carmela Lester NP [address] [place] [address] Patient Name: DIANE CANAS MRN: [id number] date: 1970 Sex: F Assigned Patient Location: MRI Current Patient Location: Accession/Order Number: [id number] Exam Date: 09/02/2023 14:05 Report Date: 09/05/2023 [...] M.D. Signed By: 09/05/2354 DD/ 0652 TD/TT: Water Resources Business Segment Leader: Procedure Note Radiology, Radiologist, MD - 09/05/2023 [place] [address] Magnetic Resonance Report Signed Patient: DIANE CANAS RMR#: [id number] : 1970Acct:[id number] Age/Sex: 53 / FADM Date: 09/02/23 Loc: MRI Attending Dr: Carmela Lester NP Ordering Physician: Carmela Lester NP Date of Service: 09/02/23 Procedure(s): MR cervical spine wo con Accession Number(s): [id number] cc: Carmela Lester NP [address] [place] [address] Patient Name: DIANE CANAS MRN: [id number] date: 1970 Sex: F Assigned Patient Location: MRI Current Patient Location: Accession/Order Number: [id number] Exam Date: 09/02/2023 14:05 Report Date: 09/05/2023 [...] M.D. Signed By:09/05/23 0654 DD/ 0652 TD/TT: Water Resources Business Segment Leader: us Carmela Lester NP IMG MRI PROCEDURES Final Result documented in this encounter Visit Diagnoses Not on filedocumented in this encounter Care Teams Blueprint Tracer Relationship Specialty Start Date End Date Parviz Stewart MD PCP - General Family Medicine 05/10/23 Carmela Lester NP Referring Physician Nurse Practitioner 10/04/22 Carmela Lester NP Nurse Practitioner Family Medicine 05/10/23 Nai Chávez DO [address] [place], [place] [address] Referring Physician Neurology 03/27/24 Jessica Venegas NP [address] [place] [address] Nurse Practitioner Neurology 03/27/24 documented as of this encounter
--- OUTSIDE RECORDS SUMMARY | 2024-11-21 17:19 | XMS_ITS | CCD ---
Author Organization [facility] Care Team Providers Care Cancer Program Coordinator Name Role Phone AICHHOLZ, APPLICATION PACKAGING CONSULTANT CARMELA Admitting Unavailable AICHHOLZ, APPLICATION PACKAGING CONSULTANT CARMELA Attending Unavailable AICHHOLZ, APPLICATION PACKAGING CONSULTANT CARMELA Primary Care Unavailable AICHHOLZ, APPLICATION PACKAGING CONSULTANT CARMELA Consulting Unavailable AICHHOLZ, APPLICATION PACKAGING CONSULTANT CARMELA Admitting Unavailable AICHHOLZ, APPLICATION PACKAGING CONSULTANT CARMELA Attending Unavailable AICHHOLZ, APPLICATION PACKAGING CONSULTANT CARMELA Primary Care Unavailable AICHHOLZ, APPLICATION PACKAGING CONSULTANT CARMELA Consulting Unavailable AICHHOLZ, APPLICATION PACKAGING CONSULTANT CARMELA Admitting Unavailable AICHHOLZ, APPLICATION PACKAGING CONSULTANT CARMELA Attending Unavailable AICHHOLZ, APPLICATION PACKAGING CONSULTANT CARMELA Primary Care Unavailable AICHHOLZ, APPLICATION PACKAGING CONSULTANT CARMELA Consulting Unavailable AICHHOLZ, APPLICATION PACKAGING CONSULTANT CARMELA Admitting Unavailable AICHHOLZ, APPLICATION PACKAGING CONSULTANT CARMELA Attending Unavailable AICHHOLZ, APPLICATION PACKAGING CONSULTANT CARMELA Primary Care Unavailable AICHHOLZ, APPLICATION PACKAGING CONSULTANT CARMELA Consulting Unavailable Aichholz, Carmela J Primary Care Provider [phone] ORLY Comer Attending Provider ORLY Comer Attending Provider ORLY Comer Attending Provider DO Milton Appiah Attending Provider Aichholz, Carmela J Primary Care Provider Milton Appiah DO Attending Provider [phone] Aichholz SENIOR LOAN PROCESSOR, Carmela Unavailable Parviz Stewart MD Primary Care Provider Aichholz SENIOR LOAN PROCESSOR, Carmela Unavailable Milton Appiah Attending Unavailable Milton Appiah Admitting Unavailable Aichholz, Carmela J Primary Care Unavailable [place], Milton N Attending Unavailable Milton Appiah Admitting Unavailable Carmela Lester Primary Care Unavailable Loly Comer Admitting Unavailable Carmela Lester Primary Care Unavailable Loly Comer Attending Unavailable Milton Appiah Attending Unavailable Milton Appiah Admitting Unavailable Carmela Lester Primary Care Unavailable Den Espinoza DO Unavailable Jessica Venegas NP Unavailable [place], EHAB Attending Unavailable [place], EHAB Attending Unavailable Giedraitis MD, Andrius Vytautas Attending Unavailable Giedraitis , Andrius Vytautas Attending Unavailable Giedraitis , Andrius Vytautas Attending Unavailable Giedraitis , Andrius Vytautas Attending Unavailable Theo BENITEZ, Jessica Unavailable DEN ESPINOZA Attending Unavailable CARMELA LESTER Attending Unavailable ASHUTOSH QUINTANA Attending Unavailable CARMELA LESTER Referring Unavailable DEN ESPINOZA Attending Unavailable MILTON APPIAH Referring Unavailable Allergies Allergy Classification Reported Allergen(s) Allergy Type Date of Onset Reaction(s) Facility (1 source) Desonide Drug Allergy 12-02-2012 [facility] Repository (20 sources) Wound Dressing Adhesive Drug Allergy 03-01-2014 [facility] Medications Current Medications Medication Drug Class(es) [...] October 06, 2023 12:00am Start: 08-10-2023 End: 12-10-2024 take 1 tablet by mouth at bedtime atorvastatin (Lipitor) 80 MG tablet Indications: 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 Take 1 tablet (80 mg) by mouth at bedtime Take pill in the evening time not morning 90 tablet 1 09/11/2024 12/10/2024 Active diclofenac sodium 0.01 mg/mg topical gel (3 sources) Nonsteroidal Anti-inflammatory Drug Start: 10-16-2024 End: 11-16-2024 diclofenac sodium (Voltaren) 1 % gel Indications: Bilateral hand pain Apply 2 g topically 3 (three) times a day as needed for pain 300 g 1 10/17/2024 11/16/2024 Active DULoxetine 30 mg delayed release oral capsule (2 sources) Serotonin and Norepinephrine Reuptake Inhibitor take 1 capsule by mouth in the morning DULoxetine (Cymbalta) [address] capsule Take 30 mg by mouth in the morning and 30 mg before bedtime. Do not crush or chew. 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 Take 120 mg by mouth in the morning. Do not crush or chew. . 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 Take 120 mg by mouth in the morning. Do not crush or chew. . 90 tablet 1 11/22/2023 Active levothyroxine sodium 0.075 mg oral tablet (20 sources) l-Thyroxine Start: 05-21-2024 End: 12-10-2024 take 1 tablet by mouth before mealtime levothyroxine (Synthroid, Levoxyl) 75 MCG tablet Indications: Hypothyroidism (acquired) Take 1 tablet (75 mcg) by mouth in the morning. Take before meals. 90 tablet 1 09/11/2024 12/10/2024 Active Start: 10-06-2023 Levothyroxine Active MCG PO [...] Angiotensin Converting Enzyme Inhibitor Start: 05-21-2024 End: 12-10-2024 take 1 tablet by mouth in the morning lisinopril 20 MG tablet Indications: Primary hypertension , Essential hypertension Take 1 tablet (20 mg) by mouth in the morning and 1 tablet (20 mg) before bedtime. 180 tablet 1 09/11/2024 12/10/2024 Active Start: 10-06-2023 Lisinopril Act sonia MG [...] (20 sources) beta-Adrenergic Sara Start: 05-21-2024 End: 12-10-2024 take 1 tablet by mouth in the morning metoprolol tartrate (Lopressor) 100 MG tablet Indications: Primary hypertension , Essential hypertension Take 1 tablet (100 mg) by mouth in the morning and 1 tablet (100 mg) before bedtime. 180 tablet 1 09/11/2024 12/10/2024 Active Start: 05-21-2024 End: 12-10-2024 take 1 tablet by mouth in the morning metoprolol tartrate (Lopressor) 25 MG tablet Indications: Essential hypertension Take 1 tablet (25 mg) by mouth in the morning and 1 tablet (25 mg) before bedtime. 180 tablet 1 09/11/2024 12/10/2024 Active Start: 03-14-2024 End: 04-13-2024 take 1 [...] 60 tablet 1 11/22/2023 12/22/2023 Active Nitroglycerin (20 sources) Nitrate Vasodilator Start: 12-26-2023 Nitroglyce rin Active MG SUBLINGUAL December 26, 2023 12:00am Start: 05-10-2023 End: 12-25-2023 nitroglycerin (Nitrostat) 0. 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 Place 1 tablet (0.4 mg) under the tongue every 5 (five) minutes if needed for chest pain If after 3 doses still chest pain, go to ER/call 911 25 tablet 11/25/2023 Active Nitroglycerin 0.4 mg tablet, sublingual (1 source) Start: 12-26-2023 Nitroglycerin 0.4 mg tablet, sublingual Active MG SUBLINGUAL December 25, 2023 11:00pm tiZANidine 4 mg oral tablet (20 sources) Central alpha-2 Adrenergic Agonist Start: 10-06-2023 [...] October 06, 2023 12:00am Start: 08-10-2023 End: 12-10-2024 take 1 tablet by mouth in the morning, then take 1 tablet by mouth in the evening, then take 1 tablet by mouth at bedtime verapamil (Calan) 80 MG tablet Indications: Primary hypertension , Essential hypertension Take 1 tablet (80 mg) by mouth in the morning and 1 tablet (80 mg) in the evening and 1 tablet (80 mg) before bedtime. 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; Translations: [Angina pectoris] Onset: 02-25-2011 02-07-2023 Chronic Disorders of lipid metabolism (20 sources) Pure hyperglyceridemia; Translations: [Hyperlipidemia, unspecified] Onset: 02-25-2011 Chronic Esophageal disorders (20 sources) Gastroesophageal reflux disease; Translations: [Gastro-esophageal reflux disease without esophagitis] Onset: 05-10-2023 05-10-2023 Chronic Essential hypertension (20 sources) Essential (primary) hypertension; Translations: [Hypertensive disorder] Onset: 06-29-2011 Chronic Gout and other crystal arthropathies (20 sources) Gout, unspecified; Translations: [Primary gout] Onset: 01-26-2022 02-07-2023 Chronic Malaise and fatigue (1 source) Other fatigue; Translations: [OTHER FATIGUE] Onset: 07-24-2022 Episodic Menstrual disorders (20 sources) Menorrhagia; Translations: [Excessive and frequent menstruation with regular cycle] Onset: 05-10-2023 05-10-2023 Chronic Nutritional deficiencies (20 sources) Vitamin D deficiency; Translations: [Vitamin D deficiency, unspecified] Onset: 05-10-2023 05-10-2023 Chronic Other connective tissue disease (6 sources) Pain in upper limb; Translations: [Pain in arm, unspecified] 10-06-2023 Episodic Other connective tissue disease (12 sources) Pain in arm, unspecified; Translations: [Pain in limb] 10-06-2023 Episodic Other connective tissue disease (20 sources) Pain of bilateral hands; Translations: [Pain in right hand] Onset: 05-10-2023 05-10-2023 Episodic Other connective tissue disease (1 source) Pain in right arm; Translations: [Pain in right arm] Onset: 03-02-2024 Episodic Other nervous system disorders (6 sources) Ulnar neuropathy; Translations: [Lesion of ulnar nerve, unspecified upper limb] 10-06-2023 Chronic Other nervous system disorders (11 sources) Lesion of ulnar nerve, unspecified upper limb; Translations: [Lesion of ulnar nerve] Onset: 02-01-2024 10-06-2023 Chronic Other nervous system disorders (20 sources) Neuropathy; Translations: [Polyneuropathy, unspecified] Onset: 05-10-2023 05-10-2023 Chronic Other nervous system disorders (20 sources) Sensory neuropathy; Translations: [Polyneuropathy, unspecified] Onset: [...] Onset: 07-24-2022 Episodic Other upper respiratory disease (20 sources) Seasonal allergy; Translations: [Other seasonal allergic rhinitis] Onset: 05-10-2023 05-10-2023 Chronic Peripheral and visceral atherosclerosis (20 sources) Peripheral vascular disease, unspecified; Translations: [Peripheral vascular disease, unspecified] Onset: 05-10-2023 05-10-2023 Chronic Residual codes; unclassified (20 sources) Obstructive sleep apnea syndrome; Translations: [Obstructive sleep apnea (adult) (pediatric)] Onset: 09-26-2023 09-26-2023 Chronic Spondylosis; intervertebral disc disorders; other back problems (20 sources) Pain in cervical spine; Translations: [Cervical disc disorder, unspecified, unspecified cervical region] Onset: 07-11-2023 07-11-2023 Chronic Substance-related disorders (8 sources) Tobacco dependence caused by cigarettes; Translations: [Nicotine dependence, cigarettes, uncomplicated] Onset: 09-11-2024 09-11-2024 Chronic Thyroid disorders (20 sources) Hypothyroidism, unspecified; Translations: [Acquired hypothyroidism] Onset: 01-26-2022 Chronic Past or Other Problems Problem Classification Problem Date Documented Da te Episodic/Chronic Chronic obstructive pulmonary disease and bronchiectasis (20 sources) Bronchitis; Translations: [Bronchitis, not specified as acute or chronic] Onset: 02-07-2023 Resolved: 05-10-2023 05-10-2023 Episodic Coma; stupor; and brain damage (20 sources) Daytime somnolence; Translations: [Somnolence] Onset: 09-26-2023 09-26-2023 Episodic Fracture of lower limb (20 sources) Closed fracture of head of fibula; Translations: [Other fracture of upper and lower end of unspecified fibula, subsequent encounter for closed fracture with routine healing] Onset: 05-10-2023 Resolved: 05-10-2023 05-10-2023 Episodic Genitourinary symptoms and ill-defined conditions (20 sources) Asymptomatic microscopic hematuria; Translations: [Asymptomatic microscopic hematuria] Onset: 05-10-2023 05-10-2023 Episodic Nutritional deficiencies (20 sources) Cobalamin deficiency; Translations: [Deficiency of other specified B group vitamins] Onset: 05-10-2023 05-10-2023 Episodic Other connective tissue disease (20 sources) Muscle spasm of cervical muscle of neck; Translations: [Other muscle spasm] Onset: 05-10-2023 Resolved: 05-10-2023 05-10-2023 Episodic Other lower respiratory disease (20 sources) Snoring; Translations: [Snoring] Onset: 05-10-2023 05-10-2023 Episodic Other nervous system disorders (20 sources) Paresthesia; Translations: [Paresthesia of skin] Onset: 09-26-2023 09-26-2023 Episodic Residual codes; unclassified (20 sources) Finding of systemic arterial pressure; Translations: [Other general symptoms and signs] Onset: 05-10-2023 05-10-2023 Episodic Residual codes; unclassified (20 sources) Tobacco user; Translations: [Tobacco use] Onset: 05-10-2023 Resolved: 09-11-2024 05-10-2023 Episodic Spondylosis; intervertebral disc disorders; other back problems (20 sources) Cervical radiculopathy; Translations: [Radiculopathy, cervical region] Onset: 05-10-2023 10-06-2023 Episodic Results Test Name Value Interpretation Reference Range Facility XR Hand - bilateral 2 Viewso n 10-10-2024 [place] [id number] XRay Report Signed Patient: DIANE CANAS MR#: [id number] : 1970 Acct:[id number] Age/Sex: 54 / F ADM Date: 10/10/24 Loc: RAD Attending Dr: Carmela Lester NP Ordering Physician: Carmela Lester NP Date of Service: 10/10/24 Procedure(s): XR hand ALYSSA 2V Accession Number(s): [id number] cc: Carmela Lester NP [address] [address] Patient Name: DIANE CANAS MRN: [facility]:[id number] date: 1970 Sex: F Assigned Patient Location: [facility] Current Patient Location: [facility] Accession/Order Number: [id number] Exam Date: 10/10/2024 14:34 Report Date: 10/10/2024 [...] Jr., D.O. 10/10/2024 2:35 PM Dictation Location: [place] [address] Electronically authenticated by: [id number] Y Date: 10/10/2024 14:35 Dictated By: Supa Morales M.D. Signed By: 10/10/24 1437 DD/ 34 TD/TT: Package Dyeing Machine Operator: [facility] Radiology, Radiologist, - 10/10/2024 [place] [address] XRay Report Signed Patient: DIANE CANAS MR#: [id number] : 1970 Acct:[id number] Age/Sex: 54 / F ADM Date: 10/10/24 Loc: [facility] Attending Dr: Carmela Lester NP Ordering Physician: Carmela Lester NP Date of Service: 10/10/24 Procedure(s): XR hand ALYSSA 2V Accession Number(s): [id number] cc: Carmela Lester NP The [place] [id number] Patient Name: DIANE CANAS MRN: [facility]:[id number] date: 1970 Sex: F Assigned Patient Location: [facility] Current Patient Location: [facility] Accession/Order Number: [id number] Exam Date: 10/10/2024 14:34 Report Date: 10/10/2024 [...] Jr., D.O. 10/10/2024 2:35 PM Dictation Location: [place] [address] Electronically authenticated by: [id number] Y Date: 10/10/2024 14:35 Dictated By: Supa Morales M.D. Signed By: 10/10/241436 DD/ 34 TD/TT: Package Dyeing Machine Operator: [facility] Radiology Study observation (narrative) [facility] XR Hand - bilateral 2 ViewsO rdered By: Radiologist Radiology on 10-10-2024 [facility] [employer] Work Phone: ALL CBC WITH AUTO DIFFon BASOPHILS ABSOLUTE AUTO 0.1 [facility] Basophils/100 WBC (Bld) 1.5 % 0.2 - 2.0 % [facility] Eosinophils/100 WBC (Bld) 2.6 % 0.9 - 7.0 % [facility] Erythrocyte distribution width (RBC) [Ratio] 11.8 % 11.0 - 15.0 % [facility] Hematocrit (Bld) [Volume fraction] 41.2 % 36.0 - 48.0 % [facility] Hemoglobin (Bld) [Mass/Vol] 13.7 g/dL 12.0 - 16.0 g/dL [facility] IMMATURE GRANULOCYTES ABS AUTO 0.02 [facility] Immature granulocytes/100 WBC (Bld) 0.3 % 0.0 - 0.5 % [facility] LYMPHOCYTES ABSOLUTE AUTO 2.1 [facility] Lymphocytes/100 WBC (Bld) 35.1 % 20.5 - 60.0 % [facility] MCH (RBC) [Entitic mass] 31.6 pg 26.7 - 34.0 pg [facility] MCHC (RBC) [Mass/Vol] 33.3 g/dL 29.9 - 35.2 g/dL [facility] MCV (RBC) [Entitic vol] 95.2 fL 81.0 - 99.0 fL [facility] MONOCYTES ABSOLUTE AUTO 0.6 [facility] Monocytes/100 WBC (Bld) 9.4 % 1.7 - 12.0 % [facility] NEUTROPHILS ABSOLUTE AUTO 3.1 [facility] Neutrophils/100 WBC (Bld) 51.1 % 43.0 - 75.0 % [facility] Platelet mean volume (Bld) [Entitic vol] 11.5 fL 9.5 - 13.5 fL [facility] EO # 0.2 [facility] PLT 249 [facility] RBC 4.33 [facility] TB WBC 6 [facility] Office Visiton 06-04-2024 Follow-up visit [id number] Diane Canas 1970 F Date Provider Department Center 06/04/2024 [facility] Family History Problem Relation Age of Onset Coronary artery disease Father Family Status - Relation Status Age at Father Level of Service:43930 [facility] OFFICE/OUTPATIENT ESTABLISHED LOW MDM 20 MIN Normal [facility] EMG 2 Extremitieson 04-09-19 EMG/NCS BLE Moderate left chronic S1 radic [facility] NVC 9-10 Nerveson 04-09-2024 EMG/NCS BLE Moderate left chronic S1 radic [facility] NVC 9-10 NervesOrdered By: Yari Espinoza on 04-09-2024 [facility] Work Phone: ALL FOLIC ACIDon 03-31-2024 FOLATE 4.3 ng/mL Low 8.60 - 58.90 ng/mL [facility] [employer] Interpretation and review of laboratory results Abnormal [facility] [employer] [facility] MR head/brain wo/w conon MR head/brain wo/w con [facility] [place] [address] MRI Report Signed Patient: Diane Canas MR#: [id number] 98 : 1970 Acct:[id number] Age/Sex: 54 / F ADM Date: 03/02/24 Loc: MR Room: Type: [facility] Attending Dr: Milton Appiah DO Copies [...] Gini Solis M.D.03/02/2024 11:22 PM Dictation Location: [place] [address] Transcribed By: [facility] 03/02/24 2322 Dictated By: Gini Solis MD 03/02/24 2312 Signed By: 03/02/24 2322 Normal [facility] MR cervical spine wo conon 1 03-14-2023 MR cervical spine wo con [facility] [place] [address] [place] [address] MRI Report Signed Patient: Diane Canas MR#: [id number] 98 : 1970 Acct:[id number] Age/Sex: 53 / F ADM Date: 01/13/24 Loc: MR Room: Type: [facility] CLI Attending Dr: Milton Appiah DO [...] Dank Camara M.D.01/13/2024 9:02 PM Dictation Location: [place] [address] Transcribed By: PEE 01/13/242101 Dictated By: Dank Camara DO 01/13/242053 Signed By: 01/13/242101 Normal [facility] XR cerv spine AP/LAT/FLX/EXT on 10-27-2023 XR cerv spine AP/LAT/FLX/EXT [facility] [place] [address] XRay Report Signed Patient: Diane Canas MR#: [id number] 98 : 1970 Acct:[id number] Age/Sex: 53 / F ADM Date: 10/27/23 Loc: XD Room: Type: [facility] Attending Dr: Loly Comer APRN Copies [...] Dank Camara M.D.10/27/2023 4:13 PM Dictation Location: [facility] Transcribed By: PEE 10/27/231612 Dictated By: Dank Camara DO 10/27/231610 Signed By: 10/27/231612 Normal [facility] Office Visiton 06-08-2023 Follow-up visit [id number] Diane Canas 1970 F Date Provider Department Center 06/08/2023 271-JAY, [facility] Family History Problem Relation Age of Onset Coronary artery disease Father Family Status - Relation Status Age at Father Level of Service:34980 [facility] OFFICE/OUTPATIENT NEW LOW MDM 30 MINUTES Normal [facility] CBC AUTO DIFFon 07-22-2022 BASO # 0.1 103/ul Normal 0.0-0.1 [facility] Comment on above: Performed By: #### C BC #### [facility] [address] [place] [address] [address] Candy Cortez Basophils/100 WBC (Bld) 0.6 % Normal 0.2-2.0 [facility] Comment on above: Performed By: #### C BC #### [facility] [address] [place] [address] Dr. Candy Cortez EO # 0.3 103/ul Normal 0.0-0.7 [facility] Comment on above: Performed By: #### C BC #### [facility] [address] [place] [address] [address] Candy Cortez Eosinophils/100 WBC (Bld) 2.8 % Normal 0.9-7.0 [facility] Comment on above: Performed By: #### C BC #### [facility] [address] [place] [address] Dr. Candy Cortez Erythrocyte distribution width (RBC) [Ratio] 11.9 % Normal 11.0-15.0 [facility] Comment on above: Performed By: #### C BC #### [facility] [address] [place] [address] Dr. Candy Cortez Hematocrit (Bld) [Volume fraction] 39.5 % Normal 36.0-48.0 [facility] Comment on above: Performed By: #### C BC #### [facility] [address] [place] [address] Dr. Candy Cortez Hemoglobin (Bld) [Mass/Vol] 12.8 g/dL Normal 12.0-16.0 [facility] Comment on above: Performed By: #### C BC #### [facility] [address] [place] [address] Dr. Candy Cortez IG # 0.04 10e3/ul Critically high 0.00-0.03 [facility] Comment on above: Performed By: #### C BC #### [facility] [address] [place] [address] Dr. Candy Cortez IG % 0.4 % Normal 0.0-0.5 [facility] Comment on above: Performed By: #### C BC #### [facility] [address] [place] [address] Dr. Candy Cortez LYMPH # 3.2 103/ul Normal 1.2-3.8 [facility] Comment on above: Performed By: #### C BC #### [facility] [address] [place] [address] Dr. Candy Cortez Lymphocytes/100 WBC (Bld) 33.9 % Normal 20.5-60.0 [facility] Comment on above: Performed By: #### C BC #### [facility] [address] [place] [address] Dr. Candy Cortez MANUAL DIFF REQ NO Normal [facility] Comment on above: Performed By: #### C BC #### [facility] [address] [place] [address] Dr. Candy Cortez MCH (RBC) [Entitic mass] 31.3 pg Normal 26.7-34.0 [facility] Comment on above: Performed By: #### C BC #### [facility] [address] [place] [address] Dr. Candy Cortez MCHC (RBC) [Mass/Vol] 32.4 g/dL Normal 29.9-35.2 [facility] Comment on above: Performed By: #### C BC #### [facility] [address] [place] [address] Dr. Candy Cortez MCV (RBC) [Entitic vol] 96.6 fL Normal 81.0-99.0 [facility] Comment on above: Performed By: #### C BC #### [facility] [address] [place] [address] Dr. Candy Cortez MONO # 0.8 103/ul Normal 0.3-0.8 [facility] Comment on above: Performed By: #### C BC #### [facility] [address] [place] [address] Dr. Candy Cortez Monocytes/100 WBC (Bld) 8.3 % Normal 1.7-12.0 [facility] Comment on above: Performed By: #### C BC #### [facility] [address] [place] [address] Dr. Candy Cortez NEUT # 5.1 103/ul Normal 1.4-6.5 [facility] Comment on above: Performed By: #### C BC #### [facility] [address] [place] [address] Dr. Candy Cortez Neutrophils/100 WBC (Bld) 54.0 % Normal 43.0-75.0 [facility] Comment on above: Performed By: #### C BC #### [facility] [address] [place] [address] Dr. Candy Cortez Platelet mean volume (Bld) [Entitic vol] 11.6 fL Normal 9.5-13.5 [facility] Comment on above: Performed By: #### C BC #### [facility] [address] [place] [address] Dr. Candy Cortez PLT 258 103/ul Normal 150-450 [facility] Comment on above: Performed By: #### C BC #### [facility] [address] [place] [address] Dr. Candy Cortez RBC 4.09 106/ul Critically low 4.20-5.40 [facility] Comment on above: Performed By: #### C BC #### [facility] [address] [place] [address] Dr. Candy Cortez WBC 9.4 103/ul Normal 4.0-11.0 [facility] Comment on above: Performed By: #### C BC #### [facility] [address] [place] [address] Dr. Candy Cortez FREE T4on 07-22-2022 Free T4 [Mass/Vol] 0.91 ng/dL Normal 0.76-1.46 [facility] Comment on above: Performed By: #### T SH, URIC, CMP, LIPID #### [facility] [address] [place] [address] Dr. Candy Cortez IRONon 07-22-2022 Iron [Mass/Vol] 106.0 ug/dL Normal 50.0-170.0 [facility] Comment on above: Performed By: #### T SH, URIC, CMP, LIPID #### [facility] [address] [place] [address] Dr. Candy Cortez PROF 14(COMP METB)on 023 Albumin [Mass/Vol] 3.7 g/dL Normal 3.4-5.0 [facility] Comment on above: Performed By: #### T SH, CMP #### [facility] [address] [place] [address] Dr. Candy Cortez Albumin/Globulin [Mass ratio] 1.0 {ratio} Normal [facility] Comment on above: Performed By: #### T SH, CMP #### [facility] [address] [place] [address] Dr. Candy Cortez ALP [Catalytic activity/Vol] 84 U/L Normal 46-116 [facility] Comment on above: Performed By: #### T SH, CMP #### [facility] [address] [place] [address] Dr. Candy Cortez ALT [Catalytic activity/Vol] 36 U/L Normal 14-59 [facility] Comment on above: Performed By: #### T SH, CMP #### [facility] [address] [place] [address] Dr. Candy Cortez Anion gap [Moles/Vol] 11.6 mmol/L Normal [facility] Comment on above: Performed By: #### T SH, CMP #### [facility] [address] [place] [address] Dr. Candy Cortez AST [Catalytic activity/Vol] 30 U/L Normal 15-37 [facility] Comment on above: Performed By: #### T SH, CMP #### [facility] [address] [place] [address] Dr. Candy Cortez Bilirubin [Mass/Vol] 0.4 mg/dL Normal 0.2-1.0 [facility] Comment on above: Performed By: #### T SH, CMP #### [facility] [address] [place] [address] Dr. Candy Cortez Calcium [Mass/Vol] 9.4 mg/dL Normal 8.5-10.1 [facility] Comment on above: Performed By: #### T SH, CMP #### [facility] [address] [place] [address] Dr. Candy Cortez Chloride [Moles/Vol] 105 mmol/L Normal 98-107 [facility] Comment on above: Performed By: #### T SH, CMP #### [facility] [address] [place] [address] Dr. Candy Cortez CO2 [Moles/Vol] 29.2 mmol/L Normal 21.0-32.0 [facility] Comment on above: Performed By: #### T SH, CMP #### [facility] [address] [place] [address] Dr. Candy Cortez Creatinine [Mass/Vol] 0.78 mg/dL Normal 0.55-1.02 [facility] Comment on above: Performed By: #### T SH, CMP #### [facility] [address] [place] [address] Dr. Candy Cortez EGFR-AF BURKINAN >60 Normal >=60 [facility] Comment on above: Performed By: #### T SH, CMP #### [facility] [address] [place] [address] Dr. Candy Cortez EGFR-NON AF BURKINAN >60 Normal >=60 [facility] Comment on above: Performed By: #### T SH, CMP #### [facility] [address] [place] [address] Dr. Candy Cortez Globulin (S) [Mass/Vol] 3.8 g/dL Normal [facility] Comment on above: Performed By: #### T SH, CMP #### [facility] [address] [place] [address] Dr. Candy Cortez Glucose [Mass/Vol] 95 mg/dL Normal 74-106 [facility] Comment on above: Performed By: #### T SH, CMP #### [facility] [address] [address] [address] Candy Cortez Potassium [Moles/Vol] 4.8 mmol/L Normal 3.5-5.1 [facility] Comment on above: Performed By: #### T SH, CMP #### [facility] [address] [address] [address] Candy Cortez Protein [Mass/Vol] 7.5 g/dL Normal 6.4-8.2 [facility] Comment on above: Performed By: #### T SH, CMP #### [facility] [address] [place] [address] Dr. Candy Cortez Sodium [Moles/Vol] 141 mmol/L Normal 136-145 [facility] Comment on above: Performed By: #### T SH, CMP #### [facility] [address] [place] [address] Dr. Candy Cortez Urea nitrogen [Mass/Vol] 13.0 mg/dL Normal 7.0-18.0 [facility] Comment on above: Performed By: #### T SH, CMP #### [facility] [address] [place] [address] Dr. Candy Cortez Urea nitrogen/Creatinine [Mass ratio] 16.7 mg/mg Normal [facility] Comment on above: Performed By: #### T SH, CMP #### [facility] [address] [place] [address] Dr. Candy Cortez TSHon 07-22-2022 TSH 0.818 uIU/mL Normal 0.358-3.740 [facility] Comment on above: Performed By: #### T SH, CMP #### [facility] [address] [place] [address] Dr. Candy Cortez UA RANDOM W/MICROSCOPICon BACTERIA NONE SEEN Normal NONE SEEN [facility] Comment on above: Performed By: #### U AMIC #### [facility] [address] [address] [address] Candy Cortez Bilirubin Ql (U) Negative Normal NEGATIVE [facility] Comment on above: Performed By: #### U AMIC #### [facility] [address] [address] [address] Candy Cortez CAST NONE SEEN Normal NONE SEEN [facility] Comment on above: Performed By: #### U AMIC #### [facility] [address] [address] [address] Candy Cortez Clarity (U) CLEAR Normal CLEAR [facility] Comment on above: Performed By: #### U AMIC #### [facility] [address] [address] [address] Candy Cortez Color (U) LT. YELLOW Normal YELLOW [facility] Comment on above: Performed By: #### U AMIC #### [facility] [address] [address] [address] Candy Cortez Crystals LM Nom (Urine sed) NONE SEEN Normal NONE SEEN [facility] Comment on above: Performed By: #### U AMIC #### [facility] [address] [address] [address] Candy Cortez Epithelial cells LM Ql (Urine sed) RARE Normal NONE SEEN /RARE [facility] Comment on above: Performed By: #### U AMIC #### [facility] [address] [address] [address] Candy Cortez Glucose Ql (U) Negative Normal NEGATIVE [facility] Comment on above: Performed By: #### U AMIC #### [facility] [address] [address] [address] Candy Cortez Hemoglobin Ql (U) Negative Normal NEGATIVE [facility] Comment on above: Performed By: #### U AMIC #### [facility] [address] [address] [address] Candy Cortez Ketones Ql (U) Negative Normal NEGATIVE [facility] Comment on above: Performed By: #### U AMIC #### [facility] [address] [place] [address] Dr. Candy Cortez LEUKOCYTES Negative Normal NEGATIVE [facility] Comment on above: Performed By: #### U AMIC #### [facility] [address] [address] [address] Candy Cortez MUCOUS NONE SEEN Normal NONE SEEN [facility] Comment on above: Performed By: #### U AMIC #### [facility] [address] [address] [address] Candy Cortez Nitrite Ql (U) Negative Normal NEGATIVE [facility] Comment on above: Performed By: #### U AMIC #### [facility] [address] [place] [address] Dr. Candy Cortez pH (U) 7.0 [pH] Normal 5-9 [facility] Comment on above: Performed By: #### U AMIC #### [facility] [address] [place] [address] Dr. Candy Cortez RBC 0-2 Normal 0-2 [facility] Comment on above: Performed By: #### U AMIC #### [facility] [address] [place] [address] Dr. Candy Cortez SPEC GRAVITY <=1.005 Abnormal 1.005-<=1.025 [facility] Comment on above: Performed By: #### U AMIC #### [facility] [address] [place] [address] Dr. Candy Cortez UA PROTEIN Negative Normal NEGATIVE/ TRACE [facility] Comment on above: Performed By: #### U AMIC #### [facility] [address] [place] [address] Dr. Candy Cortez Urobilinogen Qn (U) 0.2 {Nicko'U}/dL Normal 0.2 - 1. 0 [facility] Comment on above: Performed By: #### U AMIC #### [facility] [address] [place] [address] Dr. Candy Cortez WBC 0-2 Abnormal NONE SEEN [facility] Comment on above: Performed By: #### U AMIC #### [facility] [address] [place] [address] Dr. Candy Cortez VITAMIN B12on 07-22-2022 Cobalamin (Vitamin B12) [Mass/Vol] 201.0 pg/mL Normal 193.0-986.0 [facility] Comment on above: Performed By: #### T SH, URIC, CMP, LIPID #### [facility] [address] [address] [address] Candy Cortez VITAMIN D 25 OHon 07-22-2022 VIT D 25-OH 14.6 ng/mL Normal [facility] Comment on above: Performed By: #### T SH, URIC, CMP, LIPID #### [facility] [address] [address] [address] Candy Cortez VIT D RANGES SEE BELOW Normal [facility] Comment on above: Result Comment: <20 ng/mL Vit D deficient 20 - <30 ng/mL Vit D insufficient 30 - 100 ng/mL Vit D sufficient >100 ng/mL Potential Toxicity Performed By: #### T SH, URIC, CMP, LIPID #### [facility] [address] [address] [address] Candy Cortez LIPID PROFILEon 07-05-2022 CHOL-HDL RATIO NORM SEE BELOW Normal [facility] Comment on above: Result Comment: 3.3 - 4.4 LOW RISK 4.4 - 7.1 AVERAGE RISK 7.1 - 11.0 MODERATE RISK >11.0 HIGH RISK Performed By: #### T SH, URIC, CMP, LIPID #### [facility] [address] [address] [address] Candy Cortez Cholesterol [Mass/Vol] 162 mg/dL Normal <=200 [facility] Comment on above: Performed By: #### T SH, URIC, CMP, LIPID #### [facility] [address] [address] [address] Candy Cortez Cholesterol in HDL [Mass/Vol] 74 mg/dL Critically high 40-60 [facility] Comment on above: Performed By: #### T SH, URIC, CMP, LIPID #### [facility] [address] [address] [address] Candy Cortez Cholesterol in LDL [Mass/Vol] 54.8 mg/dL Normal [facility] Comment on above: Performed By: #### T SH, URIC, CMP, LIPID #### [facility] [address] [address] [address] Candy Cortez Cholesterol.total/Ch olesterol in HDL [Mass ratio] 2.2 {ratio} Normal [facility] Comment on above: Performed By: #### T SH, URIC, CMP, LIPID #### [facility] [address] [address] [address] Candy Cortez HDL NORMAL > or = 60 mg/dl - LOW CARDIOVASCULAR RISK <40 mg/dl - HIGH CARDIOVASCULAR RISK Normal [facility] Comment on above: Performed By: #### T SH, URIC, CMP, LIPID #### [facility] [address] [address] [address] Candy Cortez LDL CALC NORMAL SEE BELOW Normal [facility] Comment on above: Result Comment: <100 mg/dl OPTIMAL 100 - 129 mg/dl NEAR OR ABOVE OPTIMAL 130 - 159 mg/dl BORDERLINE HIGH 160 - 189 mg/dl HIGH >190 mg/dl VERY HIGH Performed By: #### T SH, URIC, CMP, LIPID #### [facility] [address] [address] [address] Candy Cortez Triglyceride [Mass/Vol] 166 mg/dL Critically high <=150 [facility] Comment on above: Performed By: #### T SH, URIC, CMP, LIPID #### [facility] [address] [address] [address] Candy Cortez VLDL CALC 33.2 mg/dL Normal [facility] Comment on above: Performed By: #### T SH, URIC, CMP, LIPID #### [facility] [address] [address] [address] Candy Flower 07-05-2022 AST [Catalytic activity/Vol] 32 U/L Normal 15-37 [facility] Comment on above: Performed By: #### T SH, URIC, CMP, LIPID #### [facility] [address] [address] [address] Candy Cortez SGPTon 07-05-2022 ALT [Catalytic activity/Vol] 52 U/L Normal 14-59 [facility] Comment on above: Performed By: #### T SH, URIC, CMP, LIPID #### [facility] [address] [address] [address] Candy Cortez LIPID PROFILEon 05-10-2022 CHOL-HDL RATIO NORM SEE BELOW Normal [facility] Comment on above: Result Comment: 3.3 - 4.4 LOW RISK 4.4 - 7.1 AVERAGE RISK 7.1 - 11.0 MODERATE RISK >11.0 HIGH RISK Performed By: #### T SH, URIC, CMP, LIPID #### [facility] [address] [address] [address] Candy Cortez Cholesterol [Mass/Vol] 178 mg/dL Normal <=200 [facility] Comment on above: Performed By: #### T SH, URIC, CMP, LIPID #### [facility] [address] [address] [address] Candy Cortez Cholesterol in HDL [Mass/Vol] 80 mg/dL Critically high 40-60 [facility] Comment on above: Performed By: #### T SH, URIC, CMP, LIPID #### [facility] [address] [address] [address] Candy Cortez Cholesterol in LDL [Mass/Vol] 43.4 mg/dL Normal [facility] Comment on above: Performed By: #### T SH, URIC, CMP, LIPID #### [facility] [address] [address] [address] Candy Cortez Cholesterol.total/Ch olesterol in HDL [Mass ratio] 2.2 {ratio} Normal [facility] Comment on above: Performed By: #### T SH, URIC, CMP, LIPID #### [facility] [address] [address] [address] Candy Cortez HDL NORMAL > or = 60 mg/dl - LOW CARDIOVASCULAR RISK <40 mg/dl - HIGH CARDIOVASCULAR RISK Normal [facility] Comment on above: Performed By: #### T SH, URIC, CMP, LIPID #### [facility] [address] [address] [address] Candy Cortez LDL CALC NORMAL SEE BELOW Normal [facility] Comment on above: Result Comment: <100 mg/dl OPTIMAL 100 - 129 mg/dl NEAR OR ABOVE OPTIMAL 130 - 159 mg/dl BORDERLINE HIGH 160 - 189 mg/dl HIGH >190 mg/dl VERY HIGH Performed By: #### T SH, URIC, CMP, LIPID #### [facility] [address] [place] [address] Dr. Candy Cortez Triglyceride [Mass/Vol] 273 mg/dL Critically high <=150 [facility] Comment on above: Performed By: #### T SH, URIC, CMP, LIPID #### [facility] [address] [place] [address] Dr. Candy Cortez VLDL CALC 54.6 mg/dL Normal [facility] Comment on above: Performed By: #### T SH, URIC, CMP, LIPID #### [facility] [address] [place] [address] Dr. Candy Cortez CBC AUTO DIFFon 01-22-2022 BASO # 0.1 103/ul Normal 0.0-0.1 [facility] Comment on above: Performed By: #### C BC #### [facility] [address] [place] [address] Dr. Candy Cortez Basophils/100 WBC (Bld) 1.2 % Normal 0.2-2.0 [facility] Comment on above: Performed By: #### C BC #### [facility] [address] [place] [address] Dr. Candy Cortez EO # 0.2 103/ul Normal 0.0-0.7 [facility] Comment on above: Performed By: #### C BC #### [facility] [address] [place] [address] Dr. Candy Cortez Eosinophils/100 WBC (Bld) 2.8 % Normal 0.9-7.0 [facility] Comment on above: Performed By: #### C BC #### [facility] [address] [place] [address] Dr. Candy Cortez Erythrocyte distribution width (RBC) [Ratio] 12.2 % Normal 11.0-15.0 [facility] Comment on above: Performed By: #### C BC #### [facility] [address] [place] [address] Dr. Candy Cortez Hematocrit (Bld) [Volume fraction] 41.0 % Normal 36.0-48.0 [facility] Comment on above: Performed By: #### C BC #### [facility] [address] [place] [address] Dr. Candy Cortez Hemoglobin (Bld) [Mass/Vol] 13.6 g/dL Normal 12.0-16.0 [facility] Comment on above: Performed By: #### C BC #### [facility] [address] [place] [address] Dr. Candy Cortez IG # 0.00 10e3/ul Normal 0.00-0.03 [facility] Comment on above: Performed By: #### C BC #### [facility] [address] [place] [address] Dr. Candy Cortez IG % 0.0 % Normal 0.0-0.5 [facility] Comment on above: Performed By: #### C BC #### [facility] [address] [place] [address] Dr. Candy Cortez LYMPH # 2.7 103/ul Normal 1.2-3.8 [facility] Comment on above: Performed By: #### C BC #### [facility] [address] [place] [address] Dr. Candy Cortez Lymphocytes/100 WBC (Bld) 47.5 % Normal 20.5-60.0 [facility] Comment on above: Performed By: #### C BC #### [facility] [address] [place] [address] Dr. Candy Cortez MANUAL DIFF REQ NO Normal [facility] Comment on above: Performed By: #### C BC #### [facility] [address] [place] [address] Dr. Candy Cortez MCH (RBC) [Entitic mass] 32.5 pg Normal 26.7-34.0 [facility] Comment on above: Performed By: #### C BC #### [facility] [address] [place], [place] [id number] Dr. Candy Cortez MCHC (RBC) [Mass/Vol] 33.2 g/dL Normal 29.9-35.2 [facility] Comment on above: Performed By: #### C BC #### [facility] [address] [place] [address] Dr. Candy Cortez MCV (RBC) [Entitic vol] 97.9 fL Normal 81.0-99.0 [facility] Comment on above: Performed By: #### C BC #### [facility] [address] [place] [address] Dr. Candy Cortez MONO # 0.5 103/ul Normal 0.3-0.8 [facility] Comment on above: Performed By: #### C BC #### [facility] [address] [place] [address] Dr. Candy Cortez Monocytes/100 WBC (Bld) 8.4 % Normal 1.7-12.0 [facility] Comment on above: Performed By: #### C BC #### [facility] [address] [place] [address] Dr. Candy Cortez NEUT # 2.3 103/ul Normal 1.4-6.5 [facility] Comment on above: Performed By: #### C BC #### [facility] [address] [place] [address] Dr. Candy Cortez Neutrophils/100 WBC (Bld) 40.1 % Critically low 43.0-75.0 [facility] Comment on above: Performed By: #### C BC #### [facility] [address] [place] [address] Dr. Candy Cortez Platelet mean volume (Bld) [Entitic vol] 11.5 fL Normal 9.5-13.5 [facility] Comment on above: Performed By: #### C BC #### [facility] [address] [place] [address] Dr. Candy Cortez PLT 305 103/ul Normal 150-450 [facility] Comment on above: Performed By: #### C BC #### [facility] [address] [place] [address] Dr. Candy Cortez RBC 4.19 106/ul Critically low 4.20-5.40 [facility] Comment on above: Performed By: #### C BC #### [facility] [address] [address] [address] Candy Cortez WBC 5.7 103/ul Normal 4.0-11.0 [facility] Comment on above: Performed By: #### C BC #### [facility] [address] [address] [address] Candy Cortez FREE T4on 01-22-2022 Free T4 [Mass/Vol] 0.78 ng/dL Normal 0.76-1.46 [facility] Comment on above: Performed By: #### T SH, URIC, CMP, LIPID #### [facility] [address] [place] [address] Dr. Candy Cortez LIPID PROFILEon 01-22-2022 CHOL-HDL RATIO NORM SEE BELOW Normal [facility] Comment on above: Result Comment: 3.3 - 4.4 LOW RISK 4.4 - 7.1 AVERAGE RISK 7.1 - 11.0 MODERATE RISK >11.0 HIGH RISK Performed By: #### T SH, URIC, CMP, LIPID #### [facility] [address] [place] [address] Dr. Candy Cortez Cholesterol [Mass/Vol] 167 mg/dL Normal <=200 [facility] Comment on above: Performed By: #### T SH, URIC, CMP, LIPID #### [facility] [address] [address] [address] Candy Cortez Cholesterol in HDL [Mass/Vol] 64 mg/dL Critically high 40-60 [facility] Comment on above: Performed By: #### T SH, URIC, CMP, LIPID #### [facility] [address] [place] [address] Dr. Candy Cortez Cholesterol in LDL [Mass/Vol] 43.6 mg/dL Normal [facility] Comment on above: Performed By: #### T SH, URIC, CMP, LIPID #### [facility] [address] [place] [address] Dr. Candy Cortez Cholesterol.total/Ch olesterol in HDL [Mass ratio] 2.6 {ratio} Normal [facility] Comment on above: Performed By: #### T SH, URIC, CMP, LIPID #### [facility] [address] [address] [address] Candy Cortez HDL NORMAL > or = 60 mg/dl - LOW CARDIOVASCULAR RISK <40 mg/dl - HIGH CARDIOVASCULAR RISK Normal [facility] Comment on above: Performed By: #### T SH, URIC, CMP, LIPID #### [facility] [address] [address] [address] Candy Cortez LDL CALC NORMAL SEE BELOW Normal [facility] Comment on above: Result Comment: <100 mg/dl OPTIMAL 100 - 129 mg/dl NEAR OR ABOVE OPTIMAL 130 - 159 mg/dl BORDERLINE HIGH 160 - 189 mg/dl HIGH >190 mg/dl VERY HIGH Performed By: #### T SH, URIC, CMP, LIPID #### [facility] [address] [address] [address] Candy Cortez Triglyceride [Mass/Vol] 297 mg/dL Critically high <=150 [facility] Comment on above: Performed By: #### T SH, URIC, CMP, LIPID #### [facility] [address] [address] [address] Candy Cortez VLDL CALC 59.4 mg/dL Normal [facility] Comment on above: Performed By: #### T SH, URIC, CMP, LIPID #### [facility] [address] [address] [address] Candy Cortez PROF 14(COMP METB)on 022 Albumin [Mass/Vol] 3.6 g/dL Normal 3.4-5.0 [facility] Comment on above: Performed By: #### T SH, URIC, CMP, LIPID #### [facility] [address] [place] [address] Dr. Candy Cortez Albumin/Globulin [Mass ratio] 1.0 {ratio} Normal [facility] Comment on above: Performed By: #### T SH, URIC, CMP, LIPID #### [facility] [address] [place] [address] Dr. Candy Cortez ALP [Catalytic activity/Vol] 79 U/L Normal 46-116 [facility] Comment on above: Performed By: #### T SH, URIC, CMP, LIPID #### [facility] [address] [address] [address] Candy Cortez ALT [Catalytic activity/Vol] 23 U/L Normal 14-59 [facility] Comment on above: Performed By: #### T SH, URIC, CMP, LIPID #### [facility] [address] [place] [address] Dr. Candy Cortez Anion gap [Moles/Vol] 9.7 mmol/L Normal [facility] Comment on above: Performed By: #### T SH, URIC, CMP, LIPID #### [facility] [address] [place] [address] Dr. Candy Cortez AST [Catalytic activity/Vol] 20 U/L Normal 15-37 [facility] Comment on above: Performed By: #### T SH, URIC, CMP, LIPID #### [facility] [address] [place] [address] Dr. Candy Cortez Bilirubin [Mass/Vol] 0.4 mg/dL Normal 0.2-1.0 [facility] Comment on above: Performed By: #### T SH, URIC, CMP, LIPID #### [facility] [address] [place] [address] Dr. Candy Cortez Calcium [Mass/Vol] 9.1 mg/dL Normal 8.5-10.1 [facility] Comment on above: Performed By: #### T SH, URIC, CMP, LIPID #### [facility] [address] [place] [address] Dr. Candy Cortez Chloride [Moles/Vol] 103 mmol/L Normal 98-107 [facility] Comment on above: Performed By: #### T SH, URIC, CMP, LIPID #### [facility] [address] [place] [address] Dr. Candy Cortez CO2 [Moles/Vol] 29.0 mmol/L Normal 21.0-32.0 [facility] Comment on above: Performed By: #### T SH, URIC, CMP, LIPID #### [facility] [address] [address] [address] Candy Cortez Creatinine [Mass/Vol] 0.72 mg/dL Normal 0.55-1.02 [facility] Comment on above: Performed By: #### T SH, URIC, CMP, LIPID #### [facility] [address] [address] [address] Candy Cortez EGFR-AF BURKINAN >60 Normal >=60 [facility] Comment on above: Performed By: #### T SH, URIC, CMP, LIPID #### [facility] [address] [address] [address] Candy Cortez EGFR-NON AF BURKINAN >60 Normal >=60 [facility] Comment on above: Performed By: #### T SH, URIC, CMP, LIPID #### [facility] [address] [address] [address] Candy Cortez Globulin (S) [Mass/Vol] 3.7 g/dL Normal [facility] Comment on above: Performed By: #### T SH, URIC, CMP, LIPID #### [facility] [address] [address] [address] Candy Cortez Glucose [Mass/Vol] 93 mg/dL Normal 74-106 [facility] Comment on above: Performed By: #### T SH, URIC, CMP, LIPID #### [facility] [address] [address] [address] Candy Cortez Potassium [Moles/Vol] 4.7 mmol/L Normal 3.5-5.1 [facility] Comment on above: Performed By: #### T SH, URIC, CMP, LIPID #### [facility] [address] [address] [address] Candy Cortez Protein [Mass/Vol] 7.3 g/dL Normal 6.4-8.2 [facility] Comment on above: Performed By: #### T SH, URIC, CMP, LIPID #### [facility] [address] [address] [address] Candy Cortez Sodium [Moles/Vol] 137 mmol/L Normal 136-145 [facility] Comment on above: Performed By: #### T SH, URIC, CMP, LIPID #### [facility] [address] [place] [address] Dr. Candy Cortez Urea nitrogen [Mass/Vol] 12.0 mg/dL Normal 7.0-18.0 [facility] Comment on above: Performed By: #### T SH, URIC, CMP, LIPID #### [facility] [address] [place] [address] Dr. Candy Cortez Urea nitrogen/Creatinine [Mass ratio] 16.7 mg/mg Normal [facility] Comment on above: Performed By: #### T SH, URIC, CMP, LIPID #### [facility] [address] [place] [address] Dr. Candy Cortez TSHon 01-22-2022 TSH 0.748 uIU/mL Normal 0.358-3.740 [facility] Comment on above: Performed By: #### T SH, URIC, CMP, LIPID #### [facility] [address] [place] [address] Dr. Candy Cortez UA RANDOM W/MICROSCOPICon BACTERIA NONE SEEN Normal NONE SEEN [facility] Comment on above: Performed By: #### U AMIC #### [facility] [address] [place] [address] Dr. Candy Cortez Bilirubin Ql (U) Negative Normal NEGATIVE [facility] Comment on above: Performed By: #### U AMIC #### [facility] [address] [place] [address] Dr. Candy Cortez CAST NONE SEEN Normal NONE SEEN [facility] Comment on above: Performed By: #### U AMIC #### [facility] [address] [place] [address] Dr. Candy Cortez Clarity (U) CLEAR Normal CLEAR [facility] Comment on above: Performed By: #### U AMIC #### [facility] [address] [place] [address] Dr. Candy Cortez Color (U) LT. YELLOW Normal YELLOW [facility] Comment on above: Performed By: #### U AMIC #### [facility] [address] [address] [address] Candy Cortez Crystals LM Nom (Urine sed) NONE SEEN Normal NONE SEEN [facility] Comment on above: Performed By: #### U AMIC #### [facility] [address] [address] [address] Candy Cortez Epithelial cells LM Ql (Urine sed) RARE Normal NONE SEEN /RARE [facility] Comment on above: Performed By: #### U AMIC #### [facility] [address] [address] [address] Candy Cortez Glucose Ql (U) Negative Normal NEGATIVE [facility] Comment on above: Performed By: #### U AMIC #### [facility] [address] [address] [address] Candy Cortez Hemoglobin Ql (U) Negative Normal NEGATIVE [facility] Comment on above: Performed By: #### U AMIC #### [facility] [address] [address] [address] Candy Cortez Ketones Ql (U) Negative Normal NEGATIVE [facility] Comment on above: Performed By: #### U AMIC #### [facility] [address] [address] [address] Candy Cortez LEUKOCYTES Negative Normal NEGATIVE [facility] Comment on above: Performed By: #### U AMIC #### [facility] [address] [address] [address] Candy Cortez MUCOUS TRACE Abnormal NONE SEEN [facility] Comment on above: Performed By: #### U AMIC #### [facility] [address] [address] [address] Candy Cortez Nitrite Ql (U) Negative Normal NEGATIVE [facility] Comment on above: Performed By: #### U AMIC #### [facility] [address] [address] [address] Candy Cortez pH (U) 7.0 [pH] Normal 5-9 [facility] Comment on above: Performed By: #### U AMIC #### [facility] [address] [place] [address] Dr. Candy Cortez RBC NONE SEEN Abnormal 0-2 [facility] Comment on above: Performed By: #### U AMIC #### [facility] [address] [place] [address] Dr. Candy Cortez SPEC GRAVITY 1.020 Normal 1.005-<=1.025 [facility] Comment on above: Performed By: #### U AMIC #### [facility] [address] [place] [address] Dr. Candy Cortez UA PROTEIN Negative Normal NEGATIVE/ TRACE [facility] Comment on above: Performed By: #### U AMIC #### [facility] [address] [place] [address] Dr. Candy Cortez Urobilinogen Qn (U) 0.2 {Nicko'U}/dL Normal 0.2 - 1. 0 [facility] Comment on above: Performed By: #### U AMIC #### [facility] [address] [place] [address] Dr. Candy Cortez WBC NONE SEEN Normal NONE SEEN [facility] Comment on above: Performed By: #### U AMIC #### [facility] [address] [place] [address] Dr. Candy Cortez URIC ACID SERUMon 01-22-2022 Urate [Mass/Vol] 3.1 mg/dL Normal 2.6-6.0 [facility] Comment on above: Performed By: #### T SH, URIC, CMP, LIPID #### [facility] [address] [place] [address] Dr. Candy Cortez Vital Signs Date Time Vital Sign Value Performing Clinician Facility 09-11-2024 14:-040 Body mass index (BMI) [Ratio] 24 kg/m2 Carmela Lester SENIOR LOAN PROCESSOR Work Phone: [facility] 09-11-2024 [id number] Body temperature 98.49 [degF] Carmela Lester SENIOR LOAN PROCESSOR Work Phone: [facility] 09-11-2024 14:19-0400 Body weight 63.41 kg Carmela Lester SENIOR LOAN PROCESSOR Work Phone: [facility] 09-11-2024 14:19-0400 Diastolic blood pressure 80 mm[Hg] Carmela Lester SENIOR LOAN PROCESSOR Work Phone: [facility] 09-11-2024 14:19-0400 Heart rate 78 /min Carmela Lester SENIOR LOAN PROCESSOR Work Phone: [facility] 09-11-2024 14:19-0400 Respiratory rate 18 /min Carmela Lester SENIOR LOAN PROCESSOR Work Phone: [facility] 09-11-2024 14:19-0400 SaO2% (BldA) [Mass fraction] 98 % Carmela Lester SENIOR LOAN PROCESSOR Work Phone: [facility] 09-11-2024 14:19-0400 Systolic blood pressure 118 mm[Hg] Carmela Lester SENIOR LOAN PROCESSOR Work Phone: [facility] 03-26-2024 15:21-0500 Body height 162.6 cm Den Olga DO Work Phone: [facility] 03-26-2024 15:21-0500 Body mass index (BMI) [Ratio] 27.33 kg/m2 Den Olga DO Work Phone: [facility] 03-26-2024 15:21-0500 Body weight 72.21 kg Den Olga DO Work Phone: [facility] 03-26-2024 15:21-0500 Diastolic blood pressure 88 mm[Hg] Den Olga DO Work Phone: [facility] 03-26-2024 15:21-0500 Heart rate 78 /min Den Olga DO Work Phone: [facility] 03-26-2024 15:21-0500 SaO2% (BldA) [Mass fraction] 98 % Den Olga DO Work Phone: [facility] 03-26-2024 15:21-0500 Systolic blood pressure 136 mm[Hg] Den Olga DO Work Phone: [facility] 01-16-2024 10:52-0500 Body height 162.56 cm Carmela Aichholz Work Phone: [facility] 01-16-2024 10:52-0500 Body mass index (BMI) [Ratio] 27 kg/m2 Carmela Aichholz Work Phone: [facility] 01-16-2024 10:52-0500 Body weight 71.44 kg Carmela Aichholz Work Phone: [facility] 12-26-2023 10:03-0400 Body height 162.56 cm Carmela Aichholz Work Phone: [facility] 12-26-2023 10:03-0400 Body mass index (BMI) [Ratio] 26.9 kg/m2 Carmela Aichholz Work Phone: [facility] 12-26-2023 10:03-0400 Body weight 71.32 kg Carmela Aichholz Work Phone: [facility] 12-01-2023 12:58-0400 Body height 162.56 cm Carmela Aichholz Work Phone: [facility] 12-01-2023 12:58-0400 Body mass index (BMI) [Ratio] 27 kg/m2 Carmela Aichholz Work Phone: [facility] 12-01-2023 12:58-0400 Body weight 71.38 kg Carmela Aichholz Work Phone: [facility] 10-27-2023 13:18-0400 Body weight 70.76 kg Carmela Aichholz Work Phone: [facility] 10-06-2023 14:11-0400 Body weight 70.76 kg [facility] Encounters Encounter Date Encounter Type Care Provider Facility Start: 10-17-2024 End: 10-17-2024 Refill Carmela Aichholz SENIOR LOAN PROCESSOR Work Phone: [facility] Comment on above: Bilateral hand pain Start: 10-16-2024 End: 10-16-2024 Refill Carmela Trevon SENIOR LOAN PROCESSOR Work Phone: [facility] Comment on above: Bilateral hand pain (Primary Dx) Start: 10-10-2024 End: 10-10-2024 Clinisync Result Encounter Carmela Trevon SENIOR LOAN PROCESSOR Work Phone: [facility] Unsolicited Start: 10-10-2024 End: 10-10-2024 Clinisync Result Encounter Carmela Trevon SENIOR LOAN PROCESSOR Work Phone: [facility] Unsolicited Start: 09-11-2024 End: 09-11-2024 Office outpatient visit 25 minutes Carmela Lester SENIOR LOAN PROCESSOR Work Phone: [facility] Comment on above: Primary hypertension (Primary Dx); 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 ; Hypothyroidism (acquired) ; Cigarette nicotine dependence without complication; Mixed hyperlipidemia ; Essential hypertension ; Trapezius muscle spasm; Bilateral hand pain; Breast cancer screening declined Start: 09-11-2024 End: 09-11-2024 Bamboo flowsheet Carmela Trevon SENIOR LOAN PROCESSOR Work Phone: [facility] Start: 09-11-2024 End: 09-11-2024 Bamboo flowsheet Carmela Lester SENIOR LOAN PROCESSOR Work Phone: [facility] Start: 09-11-2024 End: 09-11-2024 ambulatory CARMELA LESTER Not Available Start: 09-07-2024 End: 09-07-2024 Clinisync Result Encounter Carmela Lester SENIOR LOAN PROCESSOR Work Phone: [facility] Unsolicited Start: 09-07-2024 End: 09-07-2024 Clinisync Result Encounter Carmela Lester SENIOR LOAN PROCESSOR Work Phone: [facility] Unsolicited Start: 08-20-2024 End: 08-20-2024 Refill Carmela Lester SENIOR LOAN PROCESSOR Work Phone: [facility] Comment on above: Essential hypertensi on (CMS/HCC); Primary hypertension (CMS/HCC); 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 (CMS/HCC); Hypothyroidism (acquired) (CMS/HCC) Start: 07-09-2024 End: 07-09-2024 ambulatory Nikki Gayle MD Facility:[facility] Start: 06-04-2024 End: 06-04-2024 ambulatory EHAB [facility] Start: 04-09-2024 End: 04-09-2024 Patient encounter procedure [...] min Den Olga DO Work Phone: [facility] Comment on above: Idiopathic periphera l neuropathy (Primary Dx); Numbness and tingling; Arthralgia, unspecified joint Start: 03-26-2024 End: 03-26-2024 ambulatory DEN OLGA Not Available Start: 03-26-2024 End: 03-26-2024 Bamboo flowsheet Den Olga DO Work Phone: [facility] Start: 03-26-2024 End: 03-26-2024 Bamboo flowsheet Den Espinoza DO Work Phone: [facility] Start: 03-13-2024 End: 03-14-2024 Refill Carmela Aichholz SENIOR LOAN PROCESSOR Work Phone: [facility] Comment on above: Essential hypertensi on ([facility] Start: 03-02-2024 End: 03-02-2024 ambulatory Milton Appiah Facility:[facility] Start: 02-29-2024 End: 02-29-2024 Refill Carmela Aichholz SENIOR LOAN PROCESSOR Work Phone: [facility] Comment on above: Coronary artery dise ase involving 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 angina pectoris ([facility]) Start: 02-07-2024 End: 02-08-2024 Telephone encounter Carmela Aichholz SENIOR LOAN PROCESSOR Work Phone: [facility] Start: 02-01-2024 End: 02-01-2024 Patient encounter procedure Carmela Aichholz Work Phone: [facility] Work Phone: Start: 02-01-2024 End: 02-01-2024 ambulatory Carmela J Aichholz Work Phone: [facility] Work Phone: Start: 01-16-2024 End: 01-16-2024 Patient encounter procedure Carmela Aichholz Work Phone: [facility] Work Phone: Start: 01-13-2024 End: 01-13-2024 Patient encounter procedure Carmela Aichholz Work Phone: [facility] [place] Work Phone: Start: 01-13-2024 End: 01-13-2024 ambulatory Carmela J Aichholz Work Phone: [facility] Work Phone: Start: 12-26-2023 End: 12-26-2023 ambulatory Carmela Karlene Osieljaneinocencio Work Phone: [facility] Work Phone: Start: 12-26-2023 End: 12-26-2023 Patient encounter procedure Carmela Trevon Work Phone: [facility] Work Phone: Start: 12-12-2023 End: 12-12-2023 ambulatory Nikki Gayle MD Facility: [place] Start: 12-01-2023 End: 12-01-2023 ambulatory Carmela Lester Work Phone: [facility] Work Phone: Start: 12-01-2023 End: 12-01-2023 Patient encounter procedure Carmelaazalia Popeinocencio Work Phone: [facility] Work Phone: Start: 11-24-2023 End: 11-25-2023 Refill Carmela Trevon SENIOR LOAN PROCESSOR Work Phone: [facility] Comment on above: Coronary artery dise ase involving 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 angina pectoris (CMS/HCC) Start: 11-22-2023 End: 11-22-2023 Refill Carmela Trevon SENIOR LOAN PROCESSOR Work Phone: [facility] Comment on above: Coronary artery dise ase involving 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 angina pectoris (CMS/HCC); Neuropathy; Essential hypertension (CMS/HCC); Hypothyroidism (acquired) (CMS/HCC); Primary hypertension (CMS/HCC); Trapezius muscle spasm Start: 11-21-2023 End: 11-21-2023 ambulatory Nikki Gayle MD Facility:[facility] Start: 10-31-2023 End: 10-31-2023 ambulatory Nikki Gayle MD Facility:[facility] Start: 10-27-2023 End: 10-27-2023 ambulatory Carmela Karlene Lester Work Phone: [facility] Work Phone: Start: 10-27-2023 End: 10-27-2023 Patient encounter procedure Carmela Trevon Work Phone: [facility] Work Phone: Start: 10-27-2023 End: 10-27-2023 Patient encounter procedure Carmela Trevon Work Phone: [facility] Work Phone: Start: 10-27-2023 End: 10-27-2023 ambulatory Carmela Soler Trevon Work Phone: [facility] Work Phone: Start: 10-06-2023 End: 10-06-2023 ambulatory [facility] Work Phone: Start: 10-06-2023 End: 10-06-2023 Patient encounter procedure [facility] Work Phone: Start: 09-29-2023 End: 09-29-2023 ambulatory ASHUTOSH QUINTANA Not Available Start: 06-08-2023 End: 06-08-2023 ambulatory AB [facility] Start: 07-22-2022 End: 07-23-2022 ambulatory APPLICATION PACKAGING CONSULTANT CARMELA RENATOZ Facility:[facility] Start: 07-05-2022 End: 07-06-2022 ambulatory APPLICATION PACKAGING CONSULTANT CARMELA OSIELHANDREZ Facility:[facility] Start: 05-10-2022 End: 05-11-2022 ambulatory APPLICATION PACKAGING CONSULTANT CARMELA AICHHOLZ Facility:[facility] Start: 01-22-2022 End: 01-23-2022 ambulatory APPLICATION PACKAGING CONSULTANT CARMELA AICJaneHOLZ Facility:[facility] Procedures Date Procedure Procedure Detail Performing Clinician Start: 10-10-2024 Radex hand 2 views Carmela Lester SENIOR LOAN PROCESSOR Work Phone: Start: 09-11-2024 Breast cancer screening declined Breast cancer screening declined Carmela Lester SENIOR LOAN PROCESSOR Work Phone: Start: 09-07-2024 ALL CBC WITH AUTO DIFF Carmela Lester SENIOR LOAN PROCESSOR Work Phone: Start: 04-09-2024 End: 04-09-2024 Needle emg ea extremty w/paraspinl area complete Den Olga DO Work Phone: Start: 03-31-2024 ALL FOLIC ACID Den D elisha DO Work Phone: Start: 01-13-2024 MRI of cervical spin e without contrast Carmela Lester Work Phone: Start: 10-27-2023 X-ray of cervical spine Carmela Lester Work Phone: Plan of Treatment Date Care Activity Detail Author Start: 02-25-2026 Screening for malignant neoplasm of colon [facility] Start: 12-12-2024 End: 12-12-2024 Patient encounter procedure 12/12/2024 2:00 PM EDT Office Visit [facility] [address] [place] [address] Carmela Lester NP [address] [place] [address] [facility] Start: 11-12-[address] [facility] Start: 09-11-2024 End: 09-11-2024 Patient encounter procedure [facility] Comment on above: ERICK (obstructive sleep apnea) (Primary D x); 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 ; Primary hypertension ; Hypothyroidism (acquired) ; Cigarette nicotine dependence without complication; Mixed hyperlipidemia Start: 09-11-2024 End: 09-11-2025 XR Hand - bilateral 2 Views XR hand 1 or 2 views bilateral Imaging Routine Bilateral hand pain Expected: 09/11/2024 (Approximate), Expires: 09/11/2025 [facility] Work Phone: Comment on above: Expected: 09/11/2024 (Approximate), Expi res: 09/11/2025 Start: 08-20-2024 End: 08-20-2025 CBC W Auto Differential panel - Blood CBC and differential Lab Routine 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 (CMS/HCC) Expected: 08/20/2024 (Approximate), Expires: 08/20/2025 [facility] Work Phone: Comment on above: Expected: 08/20/2024 (Approximate), Expi res: 08/20/2025 Start: 08-20-2024 End: 08-20-2025 Comprehensive metabolic 2000 panel - Serum or Plasma Comprehensive metabolic panel Lab Routine Essential hypertension (CMS/HCC) 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 (CMS/HCC) Expected: 08/20/2024 (Approximate), Expires: 08/20/2025 [facility] Comment on above: Expected: 08/20/2024 (Approximate), Expi res: 08/20/2025 Start: 08-20-2024 End: 08-20-2025 Lipid 1996 panel - Serum or Plasma Lipid panel Lab Routine 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 (CMS/HCC) Expected: 08/20/2024 (Approximate), Expires: 08/20/2025 [facility] Comment on above: Expected: 08/20/2024 (Approximate), Expi res: 08/20/2025 Start: 08-20-2024 End: 08-20-2025 Microalbumin/Creatinine panel in random Urine Microalbumin / creatinine, urine ratio Lab Routine Essential hypertension (CMS/HCC) Expected: 08/20/2024 (Approximate), Expires: 08/20/2025 [facility] Comment on above: Expected: 08/20/2024 (Approximate), Expi res: 08/20/2025 Start: 08-20-2024 End: 08-20-2025 Thyrotropin [Units/volume] in Serum or Plasma TSH Lab Routine Hypothyroidism (acquired) (CMS/HCC) Expected: 08/20/2024 (Approximate), Expires: 08/20/2025 [facility] Comment on above: Expected: 08/20/2024 (Approximate), Expi res: 08/20/2025 Start: 08-20-2024 End: 08-20-2025 Thyroxine (T4) free [Mass/volume] in Serum or Plasma T4, free Lab Routine Hypothyroidism (acquired) ([facility]) Expected: 08/20/2024 (Approximate), Expires: 08/20/2025 [facility] Comment on above: Expected: 08/20/2024 (Approximate), Expi res: 08/20/2025 Start: 08-20-2024 End: 08-20-2025 Urinalysis complete panel - Urine Urinalysis with reflex microscopic (clean catch) Lab Routine Essential hypertension ([facility]) Expected: 08/20/2024 (Approximate), Expires: 08/20/2025 [facility] Comment on above: Expected: 08/20/2024 (Approximate), Expi res: 08/20/2025 Start: 05-23-2024 End: 05-23-2024 Patient encounter procedure 05/23/2024 1:15 PM EDT Office Visit [facility] [address] [place] [id number] Den Espinoza DO [address] [place] [address] [facility] Start: 05-17-2024 End: 05-17-2024 Patient encounter procedure 05/17/2024 1:15 PM EST Office Visit [facility] [address] [place] [address] Den Espinoza DO [address] [place] [address] [facility] Start: 04-09-2024 End: 04-09-2024 Patient encounter procedure [facility] Comment on above: Arrived Start: 03-26-2024 End: 03-26-2024 Patient encounter procedure LILY Ir[address] Comment on above: Arrived Start: 03-26-2024 End: 03-26-2025 Cobalamin (Vitamin B12) [Mass/volume] in Serum or Plasma Vitamin B12 Lab Routine Idiopathic peripheral neuropathy Expected: 03/26/2024 (Approximate), Expires: 03/26/2025 [facility] Work Phone: Comment on above: Expected: 03/26/2024 (Approximate), Expi res: 03/26/2025 Start: 03-26-2024 End: 03-26-2025 EMG 2 Extremities EMG 2 Extremities Neurology Routine Idiopathic peripheral neuropathy Expected: 03/26/2024 (Approximate), Expires: 03/26/2025 [facility] Comment on above: Expected: 03/26/2024 (Approximate), Expi res: 03/26/2025 Start: 03-26-2024 End: 03-26-2025 Folate [Mass/volume] in Serum or Plasma Folate Lab Routine Idiopathic peripheral neuropathy Expected: 03/26/2024 (Approximate), Expires: 03/26/2025 [facility] Comment on above: Expected: 03/26/2024 (Approximate), Expi res: 03/26/2025 Start: 03-26-2024 End: 03-26-2025 Nuclear Ab [Titer] in Serum by Immunofluorescence [facility] Lab Routine Idiopathic peripheral neuropathy Expected: 03/26/2024 (Approximate), Expires: 03/26/2025 [facility] Comment on above: Expected: 03/26/2024 (Approximate), Expi res: 03/26/2025 Start: 03-26-2024 End: 03-26-2025 NVC 9-10 Nerves NVC 9-10 Nerves Neurology Routine Idiopathic peripheral neuropathy Expected: 03/26/2024 (Approximate), Expires: 03/26/2025 [facility] Comment on above: Expected: 03/26/2024 (Approximate), Expi res: 03/26/2025 Start: 03-26-2024 End: 03-26-2025 Protein electrophoresis, serum Protein electrophoresis, serum Lab Routine Idiopathic peripheral neuropathy Expected: 03/26/2024 (Approximate), Expires: 03/26/2025 [facility] Comment on above: Expected: 03/26/2024 (Approximate), Expi res: 03/26/2025 Start: 03-26-2024 End: 03-26-2025 Rheumatoid factor [Units/volume] in Serum or Plasma Rheumatoid factor Lab Routine Idiopathic peripheral neuropathy Expected: 03/26/2024 (Approximate), Expires: 03/26/2025 [facility] Comment on above: Expected: 03/26/2024 (Approximate), Expi res: 03/26/2025 Start: 03-20-2024 End: 03-20-2024 Patient encounter procedure 03/20/2024 1:20 PM EST Office Visit [facility] [address] [place] [address] Carmela Lester, EMMANUEL [address] [place] [address] [facility] Start: 11-13-2023 Influenza vaccination Influenza Vaccine (#1) [facility] Start: 10-27-2023 X-ray of cervical spine XR cerv spine AP/LAT/FLX/EXT [facility] Start: 10-27-2023 XR Cervical spine 4 Views [facility] Start: 10-06-2023 Patient referral [facility] Work Phone: Start: 2001 Screening for malignant neoplasm of cervix HPV/Cotest [facility] Start: 02-28-1992 Screening for malignant neoplasm of cervix Pap Smear [facility] Start: 1971 Screening for malignant neoplasm of colon [facility] Electromyography [facility] MR Cervical spine WO contrast [facility] Patient referral [facility] Work Phone: XR Cervical spine 4 Views [facility] Immunizations Immunization Date Immunization Notes Care Provider Fa cility 11-04-2022 influenza, injectabl e, quadrivalent, preservative free Carmela Lester [employer] Work Phone: [facility] 11-04-2022 Pneumococcal Conjuga te PCV 20 Carmela Lester [employer]IOR LOAN PROCESSOR Work Phone: [facility] 11-04-2022 influenza virus vacc ine, unspecified formulation Carmela Lester [employer]IOR LOAN PROCESSOR Work Phone: [facility] 01-01-2022 influenza, injectabl e, quadrivalent, preservative free Carmela Aichholz [employer]IOR LOAN PROCESSOR Work Phone: [facility] 01-03-2021 influenza, injectabl e, quadrivalent, preservative free Carmela Aichholz [employer]ENIOR LOAN PROCESSOR Work Phone: [facility] 12-11-2019 influenza, injectabl e, quadrivalent, preservative free Carmela Aichholz [employer]ENIOR LOAN PROCESSOR Work Phone: [facility] 11-03-2018 influenza, injectabl e, quadrivalent, preservative free Carmela Aichholz [employer]ENIOR LOAN PROCESSOR Work Phone: [facility] 11-03-2018 pneumococcal polysaccharide vaccine, 23 valent Carmela Aichholz [employer]IOR LOAN PROCESSOR Work Phone: [facility] 12-23-2017 influenza, injectabl e, quadrivalent, preservative free Carmela Aichholz SENIOR LOAN PROCESSOR Work Phone: [facility] Payers Date Payer Category Payer Self-pay 2022 Private Health Insurance [employer] [id number] 2022 Unknown [id number] 1971 Unknown [id number] [id number]. 593 1971 Unknown [id number] 2.16.840.1.183336.3.579.2. 593 1971 Unknown [id number] 2.16.840.1.260615.3.579.2. 593 1971 Unknown [id number] 2.16.840.1.264490.3.579.2. 593 1971 Unknown [id number] 2.16.840.1.767116.3.579.2. 196 1971 Unknown [id number] 2.16.840.1.926306.3.579.2. 196 1971 Unknown [id number] 2.16.840.1.905025.3.579.2. 196 1971 Unknown [id number] 2.16.840.1.944709.3.579.2. 196 1971 Unknown [id number] 2.16.840.1.269269.3.579.2. 1259 1971 Unknown [id number] 2.16.840.1.653426.3.579.2. 1259 1971 Unknown [id number] 2.16.840.1.250904.3.579.2. 1259 1971 Unknown [id number] 2.16.840.1.386243.3.579.2. 1259 1959 Unknown [id number] Unknown [id number] 2.16.840.1.047271.3.579.2. 531 Unknown [id number] 2.16.840.1.505490.3.579.2. 531 Unknown [id number] 2.16.840.1.924980.3.579.2. 531 Unknown [id number] 2.16.840.1.179732.3.579.2. 531 Social History Date Type Detail Facility Tobacco smoking stat [facility] Unknown if ever smoked [facility] Work Phone: Start: 1970 Sex Assigned At Female [facility] Tobacco smoking stat [facility] Unknown if ever smoked [facility] Work Phone: Start: 02-02-2024 Sex Patient sex un known (finding) [facility] Start: 02-07-2023 [facility] History of tobacco use Cigarette Smoker [facility] Start: 02-07-2023 End: 05-10-2023 Cigarettes smoked current (pack per day) - Reported 1 [facility] Start: 09-07-2023 End: 09-11-2024 Alcoholic beverage intake Lifetime non-drinker (finding) [facility] Start: 05-10-2023 End: 09-07-2023 Tobacco use panel [facility] Start: 1970 Sex assigned at Not on file [facility] Start: 03-26-2024 Tobacco smoking stat [facility] Ex-smoker [facility] History of tobacco use Current smoker [facility] Start: 03-26-2024 Tobacco use and exposure Smokeless tobacco non-user [facility] Clinical Notes 06-08-2023 to 09-11-2024 Carmela Lester NP - 09/11/2024 2:59 PM Cherie Lester NP - 09/11/2024 2:20 PM Cherie Lester NP - 09/11/2024 7:24 AM Cherie Lester NP - 09/11/2024 7:24 AM EDTPatient Instructions Note Date & Type Note Facility 09-11-2024 History of Present illness Narrative Associated Problem(s): Bilateral hand pain Bilat hand xray Consider ortho, ?? Dequervains tenosynovitis Images from the original note were not included. Diane Canas is a 54 y.o. female presents with chief complaint of Hypertension HPI: Continues with pain mgmt, Cervical DDD, EMG, difficulty with hand writing, told CTS, Bilat hand pain, mostly thumb area mild swelling Hypertension This is a chronic problem. The current episode started more than 1 year ago. The problem is unchanged. The problem is controlled. Associated symptoms include neck pain. Pertinent negatives include no chest pain, headaches, orthopnea, palpitations, peripheral edema or shortness of breath. There are no associated agents to hypertension. Risk factors for coronary artery disease include dyslipidemia. Past treatments include beta blockers, calcium channel blockers and SHIRIN inhibitors. The current treatment provides significant improvement. There are no compliance problems. Hypertensive end-organ damage includes CAD/CA. There is no history of PVD. SUBJECTIVE: MEDICATIONS: Current Outpatient Medications Medication Instructions atorvastatin (LIPITOR) 80 mg, Oral, Nightly, Take pill in the evening time not morning ezetimibe (ZETIA) 10 mg, Oral, Daily gabapentin (NEURONTIN) 300 mg, Oral, 3 times daily, Take 300 mg by mouth in the morning and 300 mg in the evening and 300 mg before bedtime. isosorbide mononitrate ER (IMDUR) 120 mg, Oral, Daily, Do not crush or chew. Take 120 mg by mouth in the morning. Do not crush or chew. . levothyroxine (SYNTHROID, LEVOXYL) 75 mcg, Oral, Daily before breakfast lisinopril 20 mg, Oral, 2 times daily metoprolol tartrate (LOPRESSOR) 100 mg, Oral, 2 times daily metoprolol tartrate (LOPRESSOR) 25 mg, Oral, 2 times daily nitroglycerin (NITROSTAT) 0.4 mg, Sublingual, Every 5 min PRN, If after 3 doses still chest pain, go to ER/call 911 tiZANidine (ZANAFLEX) 4 mg, Oral, Nightly PRN, May cut pill in half and take 1/2 pill at bedtime verapamil (CALAN) 80 mg, Oral, 3 times daily ALLERGIES: Allergies Allergen Reactions Wound Dressing Adhesive Hives REVIEW OF SYMPTOMS: Review of Systems Constitutional: Negative for appetite change, chills and fever. HENT: Negative for congestion, ear pain and sore throat. Eyes: Negative for pain, discharge, redness and visual disturbance. Respiratory: Negative for cough, shortness of breath and wheezing. Cardiovascular: Negative for chest pain, palpitations, orthopnea and leg swelling. Gastrointestinal: Negative for abdominal pain, blood in stool, constipation, diarrhea, nausea and vomiting. Genitourinary: Negative for difficulty urinating, dysuria and frequency. Musculoskeletal: Positive for arthralgias and neck pain. Negative for back pain, joint swelling and myalgias. Skin: Negative for rash and wound. Neurological: Negative for dizziness, tremors, seizures, syncope and headaches. Psychiatric/Behavioral: Negative for behavioral problems, self-injury and suicidal ideas. The patient is not nervous/anxious. Hematological: Does not bruise/bleed easily. Endocrine: Negative for polydipsia, polyphagia and polyuria. Allergic/Immunologic: Negative for environmental allergies and food allergies. PAST MEDICAL HISTORY Past Medical History: Diagnosis Date Abnormal ankle brachial index (LYSSA) 05/10/2023 Asymptomatic microscopic hematuria 05/10/2023 Back pain, chronic 05/10/2023 Bilateral hand pain 05/10/2023 Bronchitis 02/07/2023 CAD (coronary artery disease) 05/10/2023 Closed traumatic minimally displaced fracture of proximal end of fibula with routine healing 05/10/2023 Fatigue GERD (gastroesophageal reflux disease) 05/10/2023 Gout 05/09/2023 History of irregular menstrual cycles Hyperlipidemia Joint pain Left ankle pain Loud snoring 05/10/2023 Lumbosacral radiculopathy at S1 05/10/2023 Menorrhagia 05/10/2023 Myocardial infarction (HCC) 05/10/2023 Neuropathy 05/10/2023 Paresthesia of foot Peripheral artery disease 05/10/2023 Prinzmetal angina 05/10/2023 Seasonal allergies 05/10/2023 Tobacco user 05/10/2023 Vitamin B12 deficiency 05/10/2023 Vitamin D deficiency 05/10/2023 Past Surgical History: Procedure Laterality Date ANKLE FRACTURE SURGERY CORONARY ARTERY BYPASS GRAFT family history includes Heart disease in her father; Hypertension in her father and mother. OBJECTIVE: Visit Vitals BP 118/80 (BP Location: Left arm, Patient Position: Sitting, BP Cuff Size: Adult long) Pulse 78 Temp 98.5 F (Temporal) Resp 18 Wt 139 lb 12.8 oz SpO2 98% BMI 24.00 kg/m Smoking Status Former BSA 1.69 m Physical Exam Vitals and nursing note reviewed. Constitutional: General: She is not in acute distress. Appearance: Normal appearance. HENT: Head: Normocephalic and atraumatic. Right Ear: External ear normal. Left Ear: External ear normal. Nose: Nose normal. Mouth/Throat: Mouth: Mucous membranes are moist. Eyes: Extraocular Movements: Extraocular movements intact. Conjunctiva/sclera: Conjunctivae normal. Neck: Vascular: No carotid bruit. Cardiovascular: Rate and Rhythm: Normal rate and regular rhythm. Pulses: Normal pulses. Heart sounds: Normal heart sounds. Pulmonary: Effort: Pulmonary effort is normal. Breath sounds: Normal breath sounds. No wheezing or rhonchi. Abdominal: General: Bowel sounds are normal. There is no distension. Palpations: Abdomen is soft. There is no mass. Tenderness: There is no abdominal tenderness. Musculoskeletal: Cervical back: Normal range of motion and neck supple. Right lower leg: No edema. Left lower leg: No edema. Comments: Rubens bilat +probably ganglion cyst left wrist No gross deformity to bilat hands Tender MCP joints bilat thumb Skin: General: Skin is warm and dry. Capillary Refill: Capillary refill takes 2 to 3 seconds. Findings: No rash. Neurological: General: No focal deficit present. Mental Status: She is alert and oriented to person, place, and time. Psychiatric: Mood and Affect: Mood normal. Behavior: Behavior normal. Thought Content: Thought content normal. Judgment: Judgment normal. ASSESSMENT AND PLAN: No follow-ups on file. Problem List Items Addressed This Visit Hypertension Please check blood pressure daily and record DASH diet Limit caffeine Take medication as directed Contact office if chest pain, pressure, dizziness, shortness of breath, swelling legs Recommend slow position changes Current meds: b sara, shirin, and imdur , verapamil Relevant Medications isosorbide mononitrate ER (Imdur) 120 MG 24 hr tablet lisinopril 20 MG tablet metoprolol tartrate (Lopressor) 100 MG tablet metoprolol tartrate (Lopressor) 25 MG tablet verapamil (Calan) 80 MG tablet Hyperlipidemia On statin and zetia Check labs yearly and prn dose changes Hypothyroidism (acquired) Current med: levothyroxine Check labs yearly and prn dose change or change in sxs Relevant Medications levothyroxine (Synthroid, Levoxyl) 75 MCG tablet CAD (coronary artery disease) - Primary Current meds: statin, zetia, shirin, imdur, b sara , verapamil, and prn nitroglycerin Relevant Medications atorvastatin (Lipitor) 80 MG tablet ezetimibe (Zetia) 10 MG tablet isosorbide mononitrate ER (Imdur) 120 MG 24 hr tablet Bilateral hand pain Bilat hand xray Consider ortho, ?? Dequervains tenosynovitis Relevant Orders XR hand 1 or 2 views bilateral Trapezius muscle spasm Cigarette nicotine dependence without complication The patient has been advised of the risks of continued smoking: stroke, CA, all forms of cancer, lung disease, and . Options for quitting smoking include: cold turkey, hypnosis, acupuncture, nicotine replacement meds (gum, lozenges, and patches), Buproprion, and Varenicline. At this time pt is encouraged to evaluate their goals for wanting to quit smoking, and reach out to provider when ready to start this process Breast cancer screening declined Other Visit Diagnoses Essential hypertension Relevant Medications isosorbide mononitrate ER (Imdur) 120 MG 24 hr tablet lisinopril 20 MG tablet metoprolol tartrate (Lopressor) 100 MG tablet metoprolol tartrate (Lopressor) 25 MG tablet verapamil (Calan) 80 MG tablet Associated Problem(s): Hyperlipidemia On statin and zetia Check labs yearly and prn dose changes Associated Problem(s): Cigarette nicotine dependence without complication The patient has been advised of the risks of continued smoking: stroke, CA, all forms of cancer, lung disease, and . Options for quitting smoking include: cold turkey, hypnosis, acupuncture, nicotine replacement meds (gum, lozenges, and patches), Buproprion, and Varenicline. At this time pt is encouraged to evaluate their goals for wanting to quit smoking, and reach out to provider when ready to start this process Associated Problem(s): Hypothyroidism (acquired) Current med: levothyroxine Check labs yearly and prn dose change or change in sxs Associated Problem(s): Hypertension Please check blood pressure daily and record DASH diet Limit caffeine Take medication as directed Contact office if chest pain, pressure, dizziness, shortness of breath, swelling legs Recommend slow position changes Current meds: b sara, shirin, and imdur , verapamil Associated Problem(s): CAD (coronary artery disease) Current meds: statin, zetia, shirin, imdur, b sara , verapamil, and prn nitroglycerin Associated Problem(s): ERICK (obstructive sleep apnea) You have a diagnosis of obstructive sleep [...] tubing/filters etc: Doctor that manages your ERICK: documented in this encounter [facility] 09-11-2024 Instructions Carmela Lester NP - 09/11/2024 2:20 PM EDT Check xrays of the hands Add baby aspirin 81mg daily documented in this encounter [facility] 08-20-2024 Telephone encounter Note Please contact the [...] order please getting this completed CICI LA [facility] 08-20-2024 Miscellaneous Notes Please contact the patient, [...] completed CICI LA documented in this encounter [facility] 06-04-2024 Note [facility] Cardiology Clinic Note Chief Complaint: Patient [...] management; add calc (more content not included)... [facility] 04-09-2024 History of Present illness Narrative Images from the original note were not included. Reason for Appointment: EMG Patient: Diane Canas : 1970 EMG Computer: [employer] Referring Physician: Dr. Den Espinoza EMG: BLE mirror machine feeder: Walker Nicole RT(R) Office Location: [place] Reason for EMG: c/o numbness/tingling in bilateral feet/lower legs, low back pain that radiates down bilateral legs L>R. Hx of surgery to left ankle. No hx of DM. Taking ASA. Comments: Procedure was explained to the patient who expressed understanding. Patient appeared to have tolerated the test well despite some discomfort due to the nature of the test. documented in this encounter [facility] 03-26-2024 History of Present illness Narrative Images from the original note were not included. Chief Complaint Patient presents with Numbness Tingling Subjective Diane Canas, 54 y.o., female HPI Paresthesia of skin - EMG @ [facility] as well as our office, MRI brain [...] symptoms. She had EMG here and at [facility]. Borderline right CTS. She had the EMG [...] 05/09/2023 History of irregular menstrual cycles Hyperlipidemia (CMS/[facility]) Joint pain Left ankle pain Loud snoring 05/10/2023 Lumbosacral radiculopathy at S1 05/10/2023 Menorrhagia 05/10/2023 Myocardial infarction ([facility]) 05/10/2023 Neuropathy 05/10/2023 Paresthesia of foot Peripheral artery disease ([facility]) 05/10/2023 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[facility]) 05/10/2023 Seasonal allergies 05/10/2023 Tobacco user 05/10/2023 [...] upper extremity in September most recently at [facility] that was not entirely convincing for any [...] 3 weeks documented in this encounter [facility] 02-07-2024 Telephone encounter Note Please call and schedule a fu appt for pt LA [facility] 02-07-2024 Miscellaneous Notes Please call and schedule a fu appt for pt LA documented in this encounter [facility] 12-01-2023 Evaluation note Diagnosis Onset Date Resolution Arm pain acute November 12:52pm Cervical radiculopathy acute Se ptember 2023 12:52pm Neck pain acute November 12:52pm Cervical radiculopathy acute Oc tober 2023 9:58am Ulnar neuropathy at elbow acute January 15 10:50am [facility] Work Phone: 1(109) 424-560003-27-2024 [facility] Chief Complaint: [...] he is to underg (more content not included)...[facility]No [facility]* Diagnosis Onset Date Resolution Status Arm pain acute Cervical radiculopathy acute Ulnar neuropathy at elbow ac [place] Arm pain acute Neck pain acute Ulnar neuropathy at elbow ac [facility] Work Phone: Evaluation note* Diagnosis Onset Date Resolution Status Arm pain acute Cervical radiculopathy acute Ulnar neuropathy at elbow ac [place] Arm pain acute Neck pain acute Ulnar neuropathy at elbow ac [place] Arm pain acute Cervical radiculopathy acute Neck pain acute Cervical radiculopathy acute [facility] Work Phone: Evaluation note* Diagnosis Onset Date Resolution Status Arm pain acute Neck pain acute Ulnar neuropathy at elbow ac [place] Arm pain acute Cervical radiculopathy acute Neck pain acute Cervical radiculopathy acute [facility] Work Phone: Evaluation note* Diagnosis 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 (CMS/HCC) [facility] Diagnosis Colon cancer screening- Primary Special screening for malignant neoplasms, colon Atherosclerosis of [place] coronary artery without angina pectoris, unspecified whether [place] or transplanted heart (CMS/HCC) Essential hypertension (CMS/HCC) Unspecified essential hypertension Hypothyroidism (acquired) (CMS/HCC) Unspecified hypothyroidism Idiopathic gout, unspecified chronicity, unspecified site Bronchitis Bronchitis, not specified as acute or chronic Essential hypertension (CMS/HCC)- Primary Unspecified essential hypertension 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 (CMS/HCC) Trapezius muscle spasm Tobacco user Tobacco use disorder Essential hypertension (CMS/HCC)- Primary Unspecified essential hypertension 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 (CMS/HCC) Trapezius muscle spasm Tobacco user Tobacco use disorder Cervical neck pain with evidence of disc disease- Primary Other and unspecified disc disorder of cervical region Trapezius muscle spasm Tobacco user Tobacco use disorder Cervical stenosis of spinal canal- Primary Spinal stenosis in cervical region Cervical radiculopathy Brachial neuritis or radiculitis nos 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 (CMS/HCC) [facility] Diagnosis 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 (CMS/HCC) Neuropathy Mononeuritis of unspecified site Essential hypertension (CMS/HCC) Unspecified essential hypertension Hypothyroidism (acquired) (CMS/HCC) Unspecified hypothyroidism Primary hypertension (CMS/HCC) Unspecified essential hypertension Trapezius muscle spasm [facility] Diagnosis Colon cancer screening- Primary Special screening for malignant neoplasms, colon Atherosclerosis of [place] coronary artery without angina pectoris, unspecified whether [place] or transplanted heart (CMS/HCC) Essential hypertension (CMS/HCC) Unspecified essential hypertension Hypothyroidism (acquired) (CMS/HCC) Unspecified hypothyroidism Idiopathic gout, unspecified chronicity, unspecified site Bronchitis Bronchitis, not specified as acute or chronic Essential hypertension (CMS/HCC)- Primary Unspecified essential hypertension 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 (CMS/HCC) Trapezius muscle spasm Tobacco user Tobacco use disorder Essential hypertension (CMS/HCC)- Primary Unspecified essential hypertension 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 (CMS/HCC) Trapezius muscle [...] screening for malignant neoplasms, colon Atherosclerosis of [place] coronary artery without angina pectoris, unspecified whether [place] or transplanted heart (CMS/HCC) Essential hypertension (CMS/HCC) Unspecified essential hypertension Hypothyroidism (acquired) (CMS/HCC) Unspecified hypothyroidism Idiopathic gout, unspecified chronicity, unspecified site Bronchitis Bronchitis, not specified as acute or chronic Essential hypertension (CMS/HCC)- Primary Unspecified essential hypertension 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 (CMS/HCC) Trapezius muscle spasm Tobacco user Tobacco use disorder Essential hypertension (CMS/HCC)- Primary Unspecified essential hypertension 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 (CMS/HCC) Trapezius muscle [...] screening for malignant neoplasms, colon Atherosclerosis of [place] coronary artery without angina pectoris, unspecified whether [place] or transplanted heart (CMS/HCC) Essential hypertension (CMS/HCC) Unspecified essential hypertension Hypothyroidism (acquired) (CMS/HCC) Unspecified hypothyroidism Idiopathic gout, unspecified chronicity, unspecified site Bronchitis Bronchitis, not specified as acute or chronic Essential hypertension (CMS/HCC)- Primary Unspecified essential hypertension 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 (CMS/HCC) Trapezius muscle spasm Tobacco user Tobacco use disorder Essential hypertension (CMS/HCC)- Primary Unspecified essential hypertension 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 (CMS/HCC) Trapezius muscle [...] peripheral neuropathy [facility]* Diagnosis Colon cancer screening- Primary Special screening for malignant neoplasms, colon Atherosclerosis of [place] coronary artery without angina pectoris, unspecified whether [place] or transplanted heart (CMS/HCC) Essential hypertension (CMS/HCC) Unspecified essential hypertension Hypothyroidism (acquired) (CMS/HCC) Unspecified hypothyroidism Idiopathic gout, unspecified chronicity, unspecified site Bronchitis Bronchitis, not specified as acute or chronic Essential hypertension (CMS/HCC)- Primary Unspecified essential hypertension 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 (CMS/HCC) Trapezius muscle spasm Tobacco user Tobacco use disorder Essential hypertension (CMS/HCC)- Primary Unspecified essential hypertension 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 (CMS/HCC) Trapezius muscle [...] Unspecified essential hypertension 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 (CMS/HCC) Hypothyroidism (acquired) (CMS/[facility]) Unspecified hypothyroidism documented in this encounter [facility]* Diagnosis Colon cancer screening- Primary Special screening for malignant neoplasms, colon Atherosclerosis of [place] coronary artery without angina pectoris, unspecified whether [place] or transplanted heart Essential hypertension Unspecified essential hypertension Hypothyroidism (acquired) Unspecified hypothyroidism Idiopathic gout, unspecified chronicity, unspecified site Bronchitis Bronchitis, not specified as acute or chronic Essential hypertension- Primary Unspecified essential hypertension 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 Trapezius muscle spasm Tobacco user Tobacco use disorder Essential hypertension- Primary Unspecified essential hypertension 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 Trapezius muscle spasm Tobacco user Tobacco use disorder Cervical neck pain with evidence of disc disease- Primary Other and unspecified disc disorder of cervical region Trapezius muscle spasm Tobacco user Tobacco use disorder Cervical stenosis of spinal canal- Primary Spinal stenosis in cervical region Cervical radiculopathy Brachial neuritis or radiculitis nos Primary hypertension- Primary Unspecified essential hypertension 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 Hypothyroidism (acquired) Unspecified hypothyroidism Cigarette nicotine dependence without complication Mixed hyperlipidemia Mixed hyperlipidemia Essential hypertension Unspecified essential hypertension Trapezius muscle spasm Bilateral hand pain Breast cancer screening declined documented in this encounter [facility]* Diagnosis Colon cancer screening- Primary Special screening for malignant neoplasms, colon Atherosclerosis of [place] coronary artery without angina pectoris, unspecified whether [place] or transplanted heart Essential hypertension Unspecified essential hypertension Hypothyroidism (acquired) Unspecified hypothyroidism Idiopathic gout, unspecified chronicity, unspecified site Bronchitis Bronchitis, not specified as acute or chronic Essential hypertension- Primary Unspecified essential hypertension 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 Trapezius muscle spasm Tobacco user Tobacco use disorder Essential hypertension- Primary Unspecified essential hypertension 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 Trapezius muscle spasm Tobacco user Tobacco use disorder Cervical neck pain with evidence of disc disease- Primary Other and unspecified disc disorder of cervical region Trapezius muscle spasm Tobacco user Tobacco use disorder Cervical stenosis of spinal canal- Primary Spinal stenosis in cervical region Cervical radiculopathy Brachial neuritis or radiculitis nos Primary hypertension- Primary Unspecified essential hypertension 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 Hypothyroidism (acquired) Unspecified hypothyroidism Cigarette nicotine dependence without complication Mixed hyperlipidemia Mixed hyperlipidemia Essential hypertension Unspecified essential hypertension Trapezius muscle spasm Bilateral hand pain Breast cancer screening declined Bilateral hand pain- Primary documented [facility]* Diagnosis Colon cancer screening- Primary Special screening for malignant neoplasms, colon Atherosclerosis of [place] coronary artery without angina pectoris, unspecified whether [place] or transplanted heart Essential hypertension Unspecified essential hypertension Hypothyroidism (acquired) Unspecified hypothyroidism Idiopathic gout, unspecified chronicity, unspecified site Bronchitis Bronchitis, not specified as acute or chronic Essential hypertension- Primary Unspecified essential hypertension 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 Trapezius muscle spasm Tobacco user Tobacco use disorder Essential hypertension- Primary Unspecified essential hypertension 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 Trapezius muscle spasm Tobacco user Tobacco use disorder Cervical neck pain with evidence of disc disease- Primary Other and unspecified disc disorder of cervical region Trapezius muscle spasm Tobacco user Tobacco use disorder Cervical stenosis of spinal canal- Primary Spinal stenosis in cervical region Cervical radiculopathy Brachial neuritis or radiculitis nos Primary hypertension- Primary Unspecified essential hypertension 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 Hypothyroidism (acquired) Unspecified hypothyroidism Cigarette nicotine dependence without complication Mixed hyperlipidemia Mixed hyperlipidemia Essential hypertension Unspecified essential hypertension Trapezius muscle spasm Bilateral hand pain Breast cancer screening declined Bilateral hand pain [facility]* Referral to Pain Management Location: None [facility] Work Phone: Summary Purpose Family History [...] and content) DATE CREATED AUTHOR 07/25/2022 [facility] DATE CREATED AUTHOR AUTHOR'S ORGANIZ ATION 03/06/2024 [facility] DATE CREATED AUTHOR AUTHOR'S ORGANIZ ATION 06/05/2024 [facility] DATE CREATED AUTHOR AUTHOR'S ORGANIZ ATION 07/22/2024 [facility] DATE CREATED AUTHOR AUTHOR'S ORGANIZ ATION 09/13/2024 [facility] EPIC Care Teams (unrecognized sec [...] Osieljerome Primary Care Provider Active Sta rt: December 26, 2023 End: December 26, 2023 Milton Appiah DO Attending Provider Active S tart: December 26, 2023 End: December 26, 2023 Team Status: Inactive Member Role Status Dates Carmela Soler Osieljerome Primary Care Provider Active Sta rt: January 13, 2024 End: January 13, 2024 Milton Appiah DO Attending Provider Active S tart: January 13, 2024 End: January 13, 2024 Team Status: Inactive Member Role Status Dates Carmela Soler Osieljerome Primary Care Provider Active Sta rt: January 16, 2024 End: January 16, 2024 Milton Appiah DO Attending Provider Active S tart: January 16, 2024 End: January 16, 2024 Team Status: Inactive Member Role Status Dates Carmela Soler Osieljerome Primary Care Provider Active Sta rt: February 01, 2024 End: February 01, 2024 Milton Appiah DO Attending Provider Active S tart: February 01, 2024 End: February 01, 2024 Cancer Program Coordinator Relationship Specialty Start Date End Date Parviz Stewart MD [address] [place] [phone] PCP - General Family Medicine 05/10/23 Carmela Lester NP [address] [place] [address] Referring Physician Nurse Practitioner 10/04/22 Carmela Lester NP [address] [place] [address] Nurse Practitioner Family Medicine 05/10/23 Cancer Program Coordinator Relationship Specialty Start Date End Date Parviz Stewart MD [address] [place] [address] PCP - General Family Medicine 05/10/23 Carmela Lester NP [address] [place] [address] Referring Physician Nurse Practitioner 10/04/22 Carmela Lester NP [address] [place] [address] Nurse Practitioner Family Medicine 05/10/23 Cancer Program Coordinator Relationship Specialty Start Date End Date Parviz Stewart MD [address] [place] [address] PCP - General Family Medicine 05/10/23 Carmela Lester NP [address] [place] [address] Referring Physician Nurse Practitioner 10/04/22 Carmela Lester NP [address] [place] [address] Nurse Practitioner Family Medicine 05/10/23 Cancer Program Coordinator Relationship Specialty Start Date End Date Parviz Stewart MD [address] [place] [address] PCP - General Family Medicine 05/10/23 Carmela Lester NP [address] [place] [address] Referring Physician Nurse Practitioner 10/04/22 Carmela Lester NP [address] [place] [address] Nurse Practitioner Family Medicine 05/10/23 Cancer Program Coordinator Relationship Specialty Start Date End Date Parviz Stewart MD [address] [place] [address] PCP - General Family Medicine 05/10/23 Carmela Lester NP [address] [place] [address] Referring Physician Nurse Practitioner 10/04/22 Carmela Lester NP [address] [place] [address] Nurse Practitioner Family Medicine 05/10/23 Cancer Program Coordinator Relationship Specialty Start Date End Date Parviz Stewart MD [address] [place] [address] PCP - General Family Medicine 05/10/23 Carmela Lester NP [address] [place] [address] Referring Physician Nurse Practitioner 10/04/22 Carmela Lester NP [address] [place] [address] Nurse Practitioner Family Medicine 05/10/23 Cancer Program Coordinator Relationship Specialty Start Date End Date Parviz Stewart MD [address] [place] [address] PCP - General Family Medicine 05/10/23 Carmela Lester NP [address] [place] [address] Referring Physician Nurse Practitioner 10/04/22 Carmela Lester NP [address] [place] [address] Nurse Practitioner Family Medicine 05/10/23 Den Espinoza DO [address] [place] [address] Referring Physician Neurology 03/27/24 Jessica Venegas NP [address] [place], [place] Nurse Practitioner Neurology 03/27/24 Cancer Program Coordinator Relationship Specialty Start Date End Date Parviz Stewart MD [address] [place] [address] PCP - General Family Medicine 05/10/23 Carmela Lester NP [address] [place] [address] Referring Physician Nurse Practitioner 10/04/22 Carmela Lester NP [address] [place] [address] Nurse Practitioner Family Medicine 05/10/23 Den Espinoza DO [address] [place] [address] Referring Physician Neurology 03/27/24 Jessica Venegas NP [address] [place], [place] Nurse Practitioner Neurology 03/27/24 Cancer Program Coordinator Relationship Specialty Start Date End Date Parviz Stewart MD [address] [place] [address] PCP - General Family Medicine 05/10/23 Carmela Lester NP [address] [place] [address] Referring Physician Nurse Practitioner 10/04/22 Carmela Lester NP [address] [place] [address] Nurse Practitioner Family Medicine 05/10/23 Den Espinoza DO [address] [place] [address] Referring Physician Neurology 03/27/24 Jessica Venegas NP [address] [place] [address] Nurse Practitioner Neurology 03/27/24 Cancer Program Coordinator Relationship Specialty Start Date End Date Parviz Stewart MD [address] [place] [address] PCP - General Family Medicine 05/10/23 Carmela Lester NP [address] [place] [address] Referring Physician Nurse Practitioner 10/04/22 Carmela Lester NP [address] [place] [address] Nurse Practitioner Family Medicine 05/10/23 Den Espinoza DO [address] [place], [place] [address] Referring Physician Neurology 03/27/24 Jessica Venegas NP [address] [place] [address] Nurse Practitioner Neurology 03/27/24 Cancer Program Coordinator Relationship Specialty Start Date End Date Parviz Stewart MD [address] [place] [address] PCP - General Family Medicine 05/10/23 Carmela Lester NP [address] [place] [address] Referring Physician Nurse Practitioner 10/04/22 Carmela Lester NP [address] [place] [address] Nurse Practitioner Family Medicine 05/10/23 Den Espinoza DO [address] [place], [place] [address] Referring Physician Neurology 03/27/24 Jessica Venegas, EMMANUEL [address] [place] [address] Nurse Practitioner Neurology 03/27/24 Cancer Program Coordinator Relationship Specialty Start Date End Date Parviz Stewart MD [address] [place] [address] PCP - General Family Medicine 05/10/23 Carmela Lester, EMMANUEL [address] [place] [address] Referring Physician Nurse Practitioner 10/04/22 Carmela Lester NP [address] [place] [address] Nurse Practitioner Family Medicine 05/10/23 Den Espinoza DO [address] [place] [address] Referring Physician Neurology 03/27/24 Jessica Venegas NP [address] [place] [address] Nurse Practitioner Neurology 03/27/24 Cancer Program Coordinator Relationship Specialty Start Date End Date Parviz Stewart MD [address] [place] [address] PCP - General Family Medicine 05/10/23 Carmela Lester NP [address] [place] [address] Referring Physician Nurse Practitioner 10/04/22 Carmela Lester, EMMANUEL [address] [place] [address] Nurse Practitioner Family Medicine 05/10/23 Den Espinoza DO [address] [place] [address] Referring Physician Neurology 03/27/24 Jessica Venegas NP [address] [place] [address] Nurse Practitioner Neurology 03/27/24 Cancer Program Coordinator Relationship Specialty Start Date End Date Parviz Stewart MD [address] [place] [address] PCP - General Family Medicine 05/10/23 Carmela Lester NP [address] [place] [address] Referring Physician Nurse Practitioner 10/04/22 Carmela Lester NP [address] [place] [address] Nurse Practitioner Family Medicine 05/10/23 Den Espinoza DO [address] [place] [address] Referring Physician Neurology 03/27/24 Jessica Venegas NP [address] [place] [address] Nurse Practitioner Neurology 03/27/24 Cancer Program Coordinator Relationship Specialty Start Date End Date Parviz Stewart MD [address] [place] [address] PCP - General Family Medicine 05/10/23 Carmela Lester NP [address] [place] [address] Referring Physician Nurse Practitioner 10/04/22 Carmela Lester NP [address] [place] [address] Nurse Practitioner Family Medicine 05/10/23 Den Espinoza DO [address] [place] [address] Referring Physician Neurology 03/27/24 Jessica Venegas NP [address] [place] [address] Nurse Practitioner Neurology 03/27/24 Goals (unrecognized section [...] Contact Neurology Diagnoses Paresthesia of skin Procedures [facility] OFFICE/OUTPATIENT NEW LOW [facility] Milton Appiah MD Phone: tel: fax: Addy Lynn MD [address] [place] [address] Phone: tel: fax: Referral ID Status Reason Start Date Expiration Date V isits Requested Visits Authorized [id number] Closed Consult and Treat 02/15/2024 08/13/2024 1 1 Reason Comments Hypertension FOR RECORDS PERTAINING TO PATIENTS WHO ARE [...] BE BASED ON THE PRIMARY CLINICAL RECORDS. [facility]. provides no warranty or guarantee of the accuracy or completeness of information in this document.
== END 2024-11-21 15:54 | disposition home or self-care (01) ==
PROVIDERS: PCP Nurse Practitioner; Visit Provider Nurse Practitioner
DX: M48.02 Spinal stenosis, cervical region (principal)

== ENCOUNTER 2025-01-02 12:59 | Outpatient (OUT) | payer OTHER, SELFPAY ==
--- OUTSIDE RECORDS SUMMARY | 2025-01-02 13:24 | XMS_ITS | CCD ---
Author Organization [facility] CliniSynv Care Team Providers Care Rn Placement Name Role Phone AICHHOLZ, DIP LUBE OPERATOR CARMELA Admitting Unavailable AICHHOLZ, DIP LUBE OPERATOR CARMELA Attending Unavailable AICHHOLZ, DIP LUBE OPERATOR CARMELA Primary Care Unavailable AICHHOLZ, DIP LUBE OPERATOR CARMELA Consulting Unavailable AICHHOLZ, DIP LUBE OPERATOR CARMELA Admitting Unavailable AICHHOLZ, DIP LUBE OPERATOR CARMELA Attending Unavailable AICHHOLZ, DIP LUBE OPERATOR CARMELA Primary Care Unavailable AICHHOLZ, DIP LUBE OPERATOR CARMELA Consulting Unavailable AICHHOLZ, DIP LUBE OPERATOR CARMELA Admitting Unavailable AICHHOLZ, DIP LUBE OPERATOR CARMELA Attending Unavailable AICHHOLZ, DIP LUBE OPERATOR CARMELA Primary Care Unavailable AICHHOLZ, DIP LUBE OPERATOR CARMELA Consulting Unavailable AICHHOLZ, DIP LUBE OPERATOR CARMELA Admitting Unavailable AICHHOLZ, DIP LUBE OPERATOR CARMELA Attending Unavailable AICHHOLZ, DIP LUBE OPERATOR CARMELA Primary Care Unavailable AICHHOLZ, DIP LUBE OPERATOR CARMELA Consulting Unavailable Aichholz, Carmela J Primary Care Provider ORLY Comer Attending Provider ORLY Comer Attending Provider ORLY Comer Attending Provider DO Milton Appiah Attending Provider Trevon Carmela J Primary Care Provider Milton Appiah DO Attending Provider [phone] Aicjerome DIRECTOR FRAUD, Carmela Unavailable Parviz Stewart MD Primary Care Provider [phone] Aichhollaura DIRECTOR FRAUD, Carmela Unavailable Milton Appiah Attending Unavailable Milton Appiah Admitting Unavailable Aichholz, Carmela J Primary Care Unavailable Milton Appiah Attending Unavailable Milton Appiah Admitting Unavailable Carmela Lester Primary Care Unavailable Loly Comer Admitting Unavailable Carmela Lester Primary Care Unavailable Amanda Comerna Attending Unavailable Milton Appiah Attending Unavailable Milton Appiah Admitting Unavailable Carmela Lester Primary Care Unavailable Den Chávez DO Unavailable Jessica Venegas NP Unavailable ELTAHAWJessy, EHAB Attending Unavailable ELTAHAWJessy, EHAB Attending Unavailable Giedraitis , Andrius Vytautas Attending Unavailable Giedraitis , Andrius Vytautas Attending Unavailable Gikadiitis , Andrius Vytautas Attending Unavailable Giedraitis , Andrius Vytautas Attending Unavailable Theo BENITEZ, Jessica Unavailable DEN CHÁVEZ Attending Unavailable CARMELA LESTER Attending Unavailable ASHUTOSH QUINTANA Attending Unavailable CARMELA LESTER Referring Unavailable DEN CHÁVEZ Attending Unavailable MILTON APPIAH Referring Unavailable Trevon DIRECTOR FRAUD-CCarmela Primary Care Provider Trevon BENITEZ-CCarmela Attending Provider Allergies Allergy ClassificationReported Allergen(s)Allergy TypeDate of OnsetReaction(s) Facility (1 source)DesonideDrug Aebcylf23-23-7012Inr [facility] Repository (20 sources)Wound Dressing AdhesiveDrug Ziyqzix86-18-9335CyqboIFSA [facility] Medications Current Medications MedicationDrug Class(es)DatesSig (Normalized)Sig (Original)allopurinol 300 mg oral tablet (8 sources)Xanthine Oxidase InhibitorStart: 76-23-2487Wtsxxnlxhtt 300 mg tablet Active MG PO October 06, 2023 12:00am Complies with drug therapyStart: 10-06-2023 Allopurinol Active MG PO October 06, 2023 12:00amaspirin 81 mg delayed release oral tablet (8 sources)Platelet Aggregation Inhibitor, Nonsteroidal Anti-inflammatory Drug Start: 32-87-6657Enmbztu (Adult Low Dose Aspirin) 81 mg tablet,delayed release (DR/EC) Active 81 MG PO Daily October 06, 2023 12:00am Complies with drug therapy atorvastatin 80 mg oral tablet (20 sources)HMG-CoA Reductase InhibitorStart: 53-40-7663Pxpfzbgsegaj Active MG PO October 06, 2023 12:00amStart: 08-10-2023 End: 87-81-0287Yfqhgujlexvw 80 mg tablet Active MG PO October 06, 2023 12:00am Complies with drug therapydiclofenac sodium 0.01 mg/mg topical gel (3 sources)Nonsteroidal Anti-inflammatory DrugStart: 10-16-2024 End: 33-57-3575bdakatawhv sodium (Voltaren) 1 % gel Indications: Bilateral hand pain Apply 2 g topically 3 (three)times a day as needed for pain 300 g 1 10/17/2024 11/16/2024 ActiveDULoxetine 30 mg delayed release oral capsule (3 sources)Serotonin and Norepinephrine Reuptake InhibitorStart: 12-11-2024 Duloxetine 30 mg capsule,delayed release(DR/EC) Active MG PO December 11, 2024 12:00am Complies with drug therapytake 1 capsule by mouth in the morning DULoxetine (Cymbalta) [address] capsule Take 30 mg by mouth in the morning and 30 mg before bedtime.Do not crush or chew. Activeezetimibe 10 mg oral tablet (20 sources)Dietary Cholesterol Absorption InhibitorStart: 89-03-1566Lcsuwhnhm Active MG PO October 06, 2023 12:00amStart: 08-10-2023 End: 66-83-4791Wpyfilbrn 10 mg tablet Active MG PO October 06, 2023 12:00am Complies with drug therapygabapentin 300 mg oral capsule (20 sources)Anti-epileptic AgentStart: 33-75-2109dbez 2 capsules by mouth three times daily as neededGabapentin 300 mg capsule Active 600 MG PO Three times daily as needed December 26, 2023 10:04am Complies with drug therapyStart: 75-07-6305qgyg 600 mg by mouth three times dailyGabapentin Active 600 MG PO Three times daily December 26, 2023 10:04amStart: 10-06-2023 End: 08-86-6431Xnaqtgotgr Discontinued MG PO October 06, 2023 12:00am December 26, 2023 10:06amStart: 08-10-2023 End: 63-97-8720Nnvbedzjpk 300 mg capsule Discontinued MG PO October 06, 2023 12:00am December 26, 2023 10:06am24 hr isosorbide mononitrate 120 mg extended release oral tablet (20 sources)Nitrate VasodilatorStart: 05-21-2024 End: 14-53-5150yfjj 1 tablet by mouth once daily in the morningisosorbide mononitrate ER (Imdur) 120 MG 24 hr tablet Indications: 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 , Essential hypertension Take 1 tablet (120 mg) by mouth Daily Do not crush or chew. Take 120 mg by mouth in the morning. Do not crush or chew. . 90 tablet 1 09/11/2024 12/10/2024 ActiveStart: 18-06-0047ifdt 1 tablet by mouth every twenty-four hoursIsosorbide Mononitrate 120 mg tablet extended release 24 hr Active MG PO October 06, 2023 12:00am Complies with drug therapyStart: 08-10-2023 End: 53-10-9311kklg 1 tablet by mouth once daily in the morningisosorbide mononitrate ER (Imdur) 120 MG 24 hr tablet Indications: 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 (CMS/HCC) , Essential hypertension (CMS/HCC) Take 1 tablet (120 mg) by mouth Daily Do not crush or chew. Take 120 mg by mouth in the morning. Do not crush or chew. . 90 tablet 1 11/22/2023 Activelevothyroxine sodium 0.075 mg oral tablet (20 sources)l-ThyroxineStart: 52-27-0820Uiojktbrohkkt Active MCG PO October 06, 2023 12:00amStart: 08-10-2023 End: 55-63-2367igux 1 tablet by mouth before mealtimelevothyroxine (Synthroid, Levoxyl) 75 MCG tablet Indications: Hypothyroidism (acquired) Take 1 tablet (75 mcg) by mouth in the morning. Take before meals. 90 tablet 1 09/11/2024 12/10/2024 Activelisinopril 20 mg oral tablet (20 sources)Angiotensin Converting Enzyme InhibitorStart: 79-10-8114hvxl 1 tablet by mouth twice dailyLisinopril 20 mg tablet Active 20 MG PO Twice daily December 12, 2024 7:02am Complies with drug therapyStart: 78-40-8911Xbgepyngig Active MG PO October 06, 2023 12:00amStart: 08-10-2023 End: 98-24-5668rdbe 1 tablet by mouth in the morninglisinopril 20 MG tablet Indications: Primary hypertension , Essential hypertension Take 1 tablet (20 mg) by mouth in the morning and 1 tablet (20 mg) before bedtime. 180 tablet 1 09/11/2024 12/10/2024 Activemetoprolol tartrate 25 mg oral tablet (20 sources)beta-Adrenergic BlockerStart: 05-21-2024 End: 44-51-8722fbjv 1 tablet by mouth twice dailyMetoprolol Tartrate 25 mg tablet Active 25 MG PO Twice daily December 11, 2024 12:00am Complies with drug therapyStart: 05-21-2024 End: 20-11-0417hewz 1 tablet by mouth in the morningmetoprolol tartrate (Lopressor) 100 MG tablet Indications: Primary hypertension , Essential hyperten dominguez Take 1 tablet (100 mg) by mouth in the morning and 1 tablet (100 mg) before bedtime. 180 tablet 1 09/11/2024 12/10/2024 ActiveStart: 03-14-2024 End: 43-93-6463fzjh 1 tablet by mouth in the morningmetoprolol tartrate (Lopressor) 25 MG tablet Indications: Essential hypertension (CMS/HCC) Take 1 ta blet (25 mg) by mouth in the morning and 1 tablet (25 mg) before bedtime. 60 tablet 1 03/14/2024 04/13/2024 ActiveStart: 01-13-2024 End: 15-49-0697hyhl 1 tablet by mouth in the morningmetoprolol tartrate (Lopressor) 25 MG tablet Indications: Essential hypertension (CMS/HCC) Take 1 ta blet (25 mg) by mouth in the morning and 1 tablet (25 mg) before bedtime. 60 tablet 1 01/13/2024 ActiveStart: 70-62-5848Tumirzduss Tartrate 100 mg tablet Active 125 MG PO Twice daily December 26, 2023 10:05am Complies with drug therapyStart: 37-64-3934zhwj 125 mg by mouth twice dailyMetoprolol Tartrate Active 125 MG PO Twice daily December 26, 2023 10:05amStart: 10-06-2023 End: 81-58-3855Slmusjqqgs Tartrate Discontinued MG PO October 06, 2023 12:00am December 26, 2023 10:06amStart: 08-10-2023 End: 36-46-8213orah 1 tablet by mouth in the morningmetoprolol tartrate (Lopressor) 25 MG tablet Indications: Essential hypertension (CMS/HCC) Take 1 ta blet (25 mg) by mouth in the morning and 1 tablet (25 mg) before bedtime. 60 tablet 1 11/22/2023 12/22/2023 ActiveStart: 08-10-2023 End: 64-37-9598Gdkdttbtag Tartrate 100 mg tablet Discontinued MG PO October 06, 2023 12:00am December 26, 2023 10:06amnitroglycerin 0.4 mg sublingual tablet (20 sources)Nitrate VasodilatorStart: 32-47-8118Fmzdojyckliey Active MG SUBLINGUAL December 26, 2023 12:00amStart: 05-10-2023 End: 99-06-8459Doxpakfifiphs 0.4 mg tablet, sublingual Active MG SUBLINGUAL December 26, 2023 12:00am Complies with drug therapyNitroglycerin 0.4 mg tablet, sublingual (1 source)Start: 64-43-4035Tnqqcocnlrngj 0.4 mg tablet, sublingual Active MG SUBLINGUAL December 25, 2023 11:00pmtiZANidine 4 mg oral tablet (20 sources)Central alpha-2 Adrenergic AgonistStart: 89-56-4696Ryrlbthmga Active MG PO October 06, 2023 12:00amStart: 08-51-9740Cxdtiqusnj 4 mg tablet Active MG PO October 06, 2023 12:00am Complies with drug therapyverapamil hydrochloride 80 mg oral tablet (20 sources)Calcium Channel BlockerStart: 40-68-8429Bugxmovqo Active MG PO October 06, 2023 12:00amStart: 08-10-2023 End: 54-00-4617Ioueutvvu 80 mg tablet Active MG PO October 06, 2023 12:00am Complies with drug therapy Problems Active Problems Problem ClassificationProblemDateDocumented DateEpisodic/ChronicAcute myocardial infarction (20 sources)Myocardial infarction; Translations: [Acute myocardial infarction, unspecified]Onset: 152063-78-2987NubkmoiSonoomag atherosclerosis and other heart disease (20 sources)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; Translations: [Angina pectoris]Onset: ChronicDisorders of lipid metabolism (20 sources)Pure hyperglyceridemia; Translations: [Hyperlipidemia, unspecified] Onset: 18-75-5766NdqumdiOzsstzaiey disorders (20 sources)Gastroesophageal reflux disease; Translations: [Gastro-esophageal reflux disease without esophagitis]Onset: 633242-82-5584XyccfxsFvqnpxeof hypertension (20 sources)Essential (primary) hypertension; Translations: [Hypertensive disorder]Onset: 30-80-4097YcwklxqZfhbyxusjffto symptoms and ill-defined conditions (20 sources)Asymptomatic microscopic hematuria; Translations: [Asymptomatic microscopic hematuria]Onset: 615980-17-5131SeweovrcBogg and other crystal arthropathies (20 sources)Gout, unspecified; Translations: [Primary gout]Onset: 01-26-2022 58-18-1900IhmkwteVdbazvf and fatigue (1 source)Other fatigue; Translations: [OTHER FATIGUE]Onset: 47-33-9015Zufhdrpu Menstrual disorders (20 sources)Menorrhagia; Translations: [Excessive and frequent menstruation with regular cycle]Onset: 128680-84-2500GtvoxyzVjdjthvnbfs deficiencies (20 sources)Vitamin D deficiency; Translations: [Vitamin D deficiency, unspecified]Onset: 038732-21-6570LsfccpdDjmntfpmurf deficiencies (20 sources)Cobalamin deficiency; Translations: [Deficiency of other specified B group vitamins]Onset: 768546-97-6248TtyicanyDiquj connective tissue disease (7 sources)Pain in upper limb; Translations: [Pain in arm, unspecified] 77-10-3731WmqmmxnsXzxff connective tissue disease (12 sources)Pain in arm, unspecified; Translations: [Pain in limb]10-06-2023 EpisodicOther connective tissue disease (20 sources)Pain of bilateral hands; Translations: [Pain in right hand]Onset: 367845-75-7603SsnqtenaYulwq connective tissue disease (20 sources)Muscle spasm of cervical muscle of neck; Translations: [Other muscle spasm]Onset: 05-10-2023 Resolved: 603685-32-4212DxwouwejKlumv connective tissue disease (1 source)Pain in right arm; Translations: [Pain in right arm]Onset: 03-02-2024 EpisodicOther nervous system disorders (7 sources)Ulnar neuropathy; Translations: [Lesion of ulnar nerve, unspecified upper limb]99-60-7751YqbxgydZpzcb nervous system disorders (11 sources)Lesion of ulnar nerve, unspecified upper limb; Translations: [Lesion of ulnar nerve]Onset: 910443-14-8304XmionqfCbyde nervous system disorders (20 sources)Neuropathy; Translations: [Polyneuropathy, unspecified]Onset: 816564-79-5040XcgfpigBmojh nervous system disorders (20 sources)Sensory neuropathy; Translations: [Polyneuropathy, unspecified] Onset: 113354-11-3475UoiwhvgQzqca nervous system disorders (3 sources)Idiopathic peripheral neuropathy; Translations: [Hereditary and idiopathic neuropathy, unspecified]69-94-9837WuwnrwiUhjcw nervous system disorders (20 sources)Paresthesia; Translations: [Paresthesia of skin]Onset: 09-26-2023 46-86-4651PwjvhzfrCkwli nervous system disorders (2 sources)Numbness and tingling sensation of skin; Translations: [Anesthesia of skin]12-95-2155AlmzycjiBeffn non-traumatic joint disorders (2 sources)Joint pain; Translations: [Pain in unspecified joint]03-26-2024 EpisodicOther nutritional; endocrine; and metabolic disorders (1 source)Overweight; Translations: [OVERWEIGHT]Onset: 67-33-9723TnmuyiyfMmdig upper respiratory disease (20 sources)Seasonal allergy; Translations: [Other seasonal allergic rhinitis] Onset: 331928-04-2721BmtvsahMbuplegyvz and visceral atherosclerosis (20 sources)Peripheral vascular disease, unspecified; Translations: [Peripheral vascular disease, unspecified]Onset: 155355-62-3147DjsjvybQutsnyvd codes; unclassified (20 sources)Obstructive sleep apnea syndrome; Translations: [Obstructive sleep apnea (adult) (pediatric)]Onset: 186071-18-0491WjgfphkIavprjpe codes; unclassified (20 sources)Finding of systemic arterial pressure; Translations: [Other general symptoms and signs]Onset: 936393-43-6067VdjggietJtpexgzlrib; intervertebral disc disorders; other back problems (20 sources)Pain in cervical spine; Translations: [Cervical disc disorder, unspecified, unspecified cervical region]Onset: hronic Spondylosis; intervertebral disc disorders; other back problems (20 sources)Cervical radiculopathy; Translations: [Radiculopathy, cervical region]Onset: 525757-30-7219HffzlbkxJaenylvfp-uatcwpv disorders (10 sources)Tobacco dependence caused by cigarettes; Translations: [Nicotine dependence, cigarettes, uncomplicated]Onset: 116965-20-2915RpfqxbbAjsxywh disorders (20 sources)Hypothyroidism, unspecified; Translations: [Acquired hypothyroidism] Onset: 65-52-7415Gbtbwuw Past or Other Problems Problem ClassificationProblemDateDocumented DateEpisodic/ChronicChronic obstructive pulmonary disease and bronchiectasis (20 sources)Bronchitis; Translations: [Bronchitis, not specified as acute or chronic]Onset: 02-07-2023 Resolved: 513007-22-3925JssxczpwRuaz; stupor; and brain damage (20 sources)Daytime somnolence; Translations: [Somnolence]Onset: 09-26-2023 03-59-1538VzxcttirTgmjujaq of lower limb (20 sources)Closed fracture of head of fibula; Translations: [Other fracture of upper and lower end of unspecified fibula, subsequent encounter for closed fracture with routine healing]Onset: 05-10-2023 Resolved: 565406-77-6706WqkqoouwBncuo lower respiratory disease (20 sources)Snoring; Translations: [Snoring]Onset: 370532-13-4749Ndpcpqcn Residual codes; unclassified (20 sources)Tobacco user; Translations: [Tobacco use]Onset: 05-10-2023 Resolved: 467782-65-9148Yelyqowr Results Test NameValueInterpretationReference RangeFacilityXR Hand - bilateral 2 Viewson 42-83-0854[address] [address] XRay Report Signed Patient: DIANE MENDOZA MR#: [id number] : 1970 Acct:[id number] Age/Sex: 54 / F ADM Date: 10/10/24 Loc: [facility] Attending Dr: Carmela Lester NP Ordering Physician: Carmela Lester NP Date of Service: 10/10/24 Procedure(s): XR hand ALYSSA 2V Accession Number(s): [id number] cc: Carmela Lester NP [place] [address] Patient Name: DIANE MENDOZA MRN: [id number] date: 1970 Sex: F Assigned Patient Location: [facility] Current Patient Location: [facility] Accession/Order Number: [id number] Exam Date: 10/10/2024 14:34 Report Date: 10/10/2024 [...] is seen. Impression dictated by: Supa Morales Jr. DLambert 10/10/2024 2:35 PM Dictation Location: [place] [address] Electronically authenticated by: [id number] Y Date: 10/10/2024 14:35 Dictated By: Supa Morales M.D. Signed By: 10/10/24 1437 DD/ 34 TD/TT: Human Services Supervisor:SOMMERadiologjessy, Radiologist, - 10/10/2024 [place] [address] XRay Report Signed Patient: DIANE MENDOZA MR#: [id number] : 1970 Acct:[id number] Age/Sex: 54 / F ADM Date: 10/10/24 Loc: [facility] Attending Dr: Carmela Lester NP Ordering Physician: Carmela Lester NP Date of Service: 10/10/24 Procedure(s): XR hand ALYSSA 2V Accession Number(s): [id number] cc: Carmela Lester NP [facility] [place] [address] Patient Name: DIANE MENDOZA MRN: [id number] date: 1970 Sex: F Assigned Patient Location: [facility] Current Patient Location: [facility] Accession/Order Number: [id number] Exam Date: 10/10/2024 14:34 Report Date: 10/10/2024 [...] Jr., D.O. 10/10/2024 2:35 PM Dictation Location: [place] [address] Electronically authenticated by: [id number] Y Date: 10/10/2024 14:35 Dictated By: Supa Morales M.D. Signed By: 10/10/241436 DD/ 34 TD/TT: Human Services Supervisor: LILY HealthcareRadiology Study observation (narrative)[facility] HealthcareXR Hand - bilateral 2 ViewsOrdered By: Radiologist Radiology on 60-99-6498IFUGRipley County Memorial Hospital Work Phone: all CBC WITH AUTO DIFFon 04-20-0332UVRKXTZTZ ABSOLUTE AUTO0.1NOMS HealthcareBasophils/100 WBC (Bld)1.5 %0.2 - 2.0 %[facility] Eosinophils/100 WBC (Bld)2.6 %0.9 - 7.0 %NOM HealthcareErythrocyte distribution width (RBC) [Ratio]11.8 %11.0 - 15.0 %NOM HealthcareHematocrit (Bld) [Volume fraction]41.2 %36.0 - 48.0 %[facility] HealthcareHemoglobin (Bld) [Mass/Vol]13.7 g/dL 12.0 - 16.0 g/dLRipley County Memorial HospitalIMMATURE GRANULOCYTES ABS AUTO0.02NOMissouri [facility] Hospital[facility] Immature granulocytes/100 WBC (Bld)0.3 %0.0 - 0.5 %NOM HealthcareLYMPHOCYTES ABSOLUTE AUTO2.1NOMS HealthcareLymphocytes/100 WBC (Bld)35.1 %20.5 - 60.0 %[facility] HospitalMCH (RBC) [Entitic mass]31.6 pg26.7 - 34.0 pgNOSamaritan HospitalHC (RBC) [Mass/Vol]33.3 g/dL29.9 - 35.2 g/dLRipley County Memorial HospitalMCV (RBC) [Entitic vol]95.2 fL 81.0 - 99.0 fLNOMissouri Baptist Hospital-SullivanMONOCYTES ABSOLUTE AUTO0.6NOMissouri [facility] Hospital[facility] Monocytes/100 WBC (Bld)9.4 %1.7 - 12.0 %NOM HealthcareNEUTROPHILS ABSOLUTE AUTO 3.1NOMS HealthcareNeutrophils/100 WBC (Bld)51.1 %43.0 - 75.0 %[facility] Platelet mean volume (Bld) [Entitic vol]11.5 fL9.5 - 13.5 fLNOMS HealthcareTBH EO #0.2NOMS HealthcareTBH [id number] HealthcareTBH RBC4.33NOMS HealthcareTBH WBC 6NOMS HealthcareCLINISYNCNOMS HealthcareOffice Visiton 21-55-7640Acezcm-up visit [id number] Diane Mendoza 1970 F Date Provider Department Center 06/04/2024 [facility] [place] Family History Problem Relation Age of Onset Coronary artery disease Father Family Status - Relation Status Age at Father Level of Service:[address] [place] OFFICE/OUTPATIENT ESTABLISHED LOW MDM [address] [facility] 2 Extremitieson 51-65-9839JGP/NCS BLE Moderate left chronic S1 radicNOMS HealthcareNOMS HealthcareNVC 9-10 Nerveson 63-69-2857ZAI/NCS BLE Moderate left chronic S1 radicNOMS HealthcareNVC 9-10 NervesOrdered By: Den Chávez on 35-50-1448[facility] Work Phone: aLL FOLIC ACIDon 90-88-8262MUGDDZ3.3 ng/mLLow8.60 - 58.90 ng/mLNOMS HealthcareInterpretation and review of laboratory results AbnormalNOMS HealthcareCLINISYNCNOMS HealthcareMR head/brain wo/w conon 67-61-3819NS head/brain wo/w [facility] [place] [address] MRI Report Signed Patient: Diane Mendoza MR#: [id number] 98 : 1970 Acct:[id number] Age/Sex: 54 / F ADM Date: 03/02/24 Loc: MR Room: Type: [facility] Attending Dr: Milton Appiah DO Copies to: [...] Gini Solis M.D.03/02/2024 11:22 PM Dictation Location: [place] [address] Transcribed By: [facility] 03/02/24 232 Dictated By: Gini Solis MD 03/02/24 231 Signed By: 03/02/24 [facility] cervical spine wo [facility] 22-71-2436DD cervical spine wo [facility] [place] [address] [place] [address] MRI Report Signed Patient: Diane Mendoza MR#: [id number] 98 : 1970 Acct:[id number] Age/Sex: 53 / F ADM Date: 01/13/24 Loc: Room: Type: [facility] Attending Dr: Milton Appiah DO Copies to: [...] Dank Camara M.D.01/13/2024 9:02 PM Dictation Location: [place] [address] Transcribed By: [facility] 01/13/242101 Dictated By: Dank Camara DO 01/13/242053 Signed By: 01/13/242101U[facility] Physician GroupXR cerv spine AP/LAT/FLX/EXTon 38-12-0583HN cerv spine AP/LAT/FLX/EXTPROM[facility] [place] [address] [place] [address] XRay Report Signed Patient: Diane Mendoza MR#: [id number] 98 : 1970 Acct:[id number] Age/Sex: 53 / F ADM Date: 10/27/23 Loc: XD Room: Type: [facility] Attending Dr: Loly Comer APRN Copies to: [...] Dank Camara M.D.10/27/2023 4:13 PM Dictation Location: [place] [address] Transcribed By: [facility] 10/27/231612 Dictated By: Dank Camara DO 10/27/231610 Signed By: 10/27/23 1613U[facility] Physician GroupOffice Visiton 43-80-5289Qxismw- up [id number] Diane Mendoza 1970 F Date Provider Department Center 06/08/2023 [facility] Family History Problem Relation Age of Onset Coronary artery disease Father Family Status - Relation Status Age at Father Level of Service:[address] [place] OFFICE/OUTPATIENT NEW LOW MDM 30 MINUTESNormal [facility] HospitalCBC AUTO DIFFon 85-74-1933DIPH #0.1 103/ul Normal0.0-0.1[facility] Health CenterComment on above:Performed By: #### CBC #### [facility] [address] [place] [address] [address] Candy Phamphils/100 WBC (Bld)0.6 %Normal0.2-2.0The [facility] Comment on above:Performed By: #### CBC #### [facility] [address] [place] [address] [address] Candy Kamara #0.3 103/ulNormal0.0-0.7The [facility] HospitalComment on above: Performed By: #### CBC #### [facility] [address] [place] [address] Dr. Candy Villagranosinophils/100 WBC (Bld)2.8 %Normal0.9-7.0[facility] Comment on above:Performed By: #### CBC #### [facility] [address] [place] [address] Dr. Candy Villagranrythrocyte distribution width (RBC) [Ratio]11.9 %Ejjnki10.0-15.0 [facility] HospitalComment on above:Performed By: #### CBC #### [facility] [address] [place] [address] Dr. Candy CortezHematocrit (Bld) [Volume fraction]39.5 %Bibral18.0-48.0The [facility] HospitalComment on above:Performed By: #### CBC #### [facility] [address] [place] [address] Dr. Candy CortezHemoglobin (Bld) [Mass/Vol]12.8 g/qQDmnfnb62.0-16.0The [facility] HospitalComment on above:Performed By: #### CBC #### [facility] [address] [place] [address] Dr. Candy Martines #0.04 10e3/ulCritically high0.00-0.03The [facility] Comment on above:Performed By: #### CBC #### [facility] [address] [place] [address] Dr. Candy Martines %0.4 %Normal0.0-0.5The [facility] HospitalComment on above: Performed By: #### CBC #### [facility] [address] [place] [address] Dr. Candy NairH #3.2 103/ulNormal1.2-3.8The [facility] HospitalComment on above:Performed By: #### CBC #### [facility] [address] [place] [address] Dr. Candy Sunmphocytes/100 WBC (Bld)33.9 %Oujkkz80.5-60.0The [facility] HospitalComment on above:Performed By: #### CBC #### [facility] [address] [place] [address] Dr. Candy Manzanares DIFF REQNONormalThe [facility] HospitalComment on above: Performed By: #### CBC #### [facility] [address] [place] [address] Dr. Candy Cervantes (RBC) [Entitic mass]31.3 yzEjnqfv28.7-34.0The [facility] [place] HospitalComment on above:Performed By: #### CBC #### [facility] [address] [place] [address] Dr. Candy Cervantes (RBC) [Mass/Vol]32.4 g/uJLpxlkb64.9-35.2The [facility] HospitalComment on above:Performed By: #### CBC #### [facility] [address] [place] [address] Dr. Candy Cervantes (RBC) [Entitic vol]96.6 hSBbqlwk19.0-99.0The [facility] HospitalComment on above:Performed By: #### CBC #### [facility] [address] [place] [address] Dr. Candy Glass #0.8 103/ulNormal0.3-0.8The [facility] HospitalComment on above:Performed By: #### CBC #### [facility] [address] [place] [address] Dr. Candy Linkocytes/100 WBC (Bld)8.3 %Normal1.7-12.0The [facility] Comment on above:Performed By: #### CBC #### [facility] [address] [place] [address] Dr. Candy Melendez #5.1 103/ulNormal1.4-6.5The [facility] HospitalComment on above:Performed By: #### CBC #### [facility] [address] [place] [address] Dr. Candy Moctezumautrophils/100 WBC (Bld)54.0 %Nmdbiq64.0-75.0The [facility] Hospitalment on above:Performed By: #### CBC #### [facility] [address] [place] [address] Dr. Candy Abel mean volume (Bld) [Entitic vol]11.6 fLNormal9.5-13.5The [facility] HospitalComment on above:Performed By: #### CBC #### [facility] [address] [place] [address] Dr. Candy TurpinT258 103/jeSqokfu899-049Meb [facility] HospitalComment on above: Performed By: #### CBC #### [facility] [address] [place] [address] Dr. Candy CortezRBC4.09 106/ulCritically low4.20-5.40The [facility] on above:Performed By: #### CBC #### [facility] [address] [place] [address] Dr. Candy CrotezWBC9.4 103/ulNormal4.0-11.0The [facility] HospitalComhenry [facility] on above: Performed By: #### CBC #### [facility] [address] [place] [address] Dr. Candy Castañeda T4on 59-55-0618Pfbi T4 [Mass/Vol]0.91 ng/dLNormal0.76-1.46 The [facility] on above:Performed By: #### TSH, URIC, CMP, LIPID #### [facility] [address] [place] [address] Dr. Candy Mitchell [id number] [Mass/Vol]106.0 ug/mZXczieh72.0-170.0The [facility] on above:Performed By: #### TSH, URIC, CMP, LIPID #### [facility] [address] [place] [address] Dr. Candy CortezPROMiri 14(COMP METB)on [id number] [Mass/Vol]3.7 g/dLNormal 3.4-5.0The [facility] Hospitalment on above:Performed By: #### TSH, CMP #### [facility] [address] [address] [address] Cadny CortezAlbumin/Globulin [Mass ratio]1.0 {ratio}NormalThe [facility] HospitalComment on above:Performed By: #### TSH, CMP #### [facility] [address] [address] [address] Candy Figueredo [Catalytic activity/Vol]84 U/JCdhmqo04-427Cwk [facility] HospitalComment on above:Performed By: #### TSH, CMP #### [facility] [address] [address] [address] Candy Yap [Catalytic activity/Vol]36 U/HHtbxwo17-94Hrs [facility] Hospitalment on above:Performed By: #### TSH, CMP #### [facility] [address] [address] [address] Candy Camaraon gap [Moles/Vol]11.6 mmol/LNormalThe [facility] Comment on above:Performed By: #### TSH, CMP #### [facility] [address] [address] [address] Candy CortezAST [Catalytic activity/Vol]30 U/QUmkktv28-61Ulq [facility] on above:Performed By: #### TSH, CMP #### [facility] [address] [address] [address] Candy CortezBilirubin [Mass/Vol]0.4 mg/dLNormal0.2-1.0The [facility] Comment on above:Performed By: #### TSH, CMP #### [facility] [address] [address] [address] Candy CortezCalcium [Mass/Vol]9.4 mg/dLNormal8.5-10.1The [facility] Comment on above:Performed By: #### TSH, CMP #### [facility] [address] [address] [address] Candy CortezChloride [Moles/Vol]105 mmol/SPryrat57-902Hyj [facility] Comment on above:Performed By: #### TSH, CMP #### [facility] [address] [address] [address] Candy CortezCO2 [Moles/Vol]29.2 mmol/GMfcrtn16.0-32.0The [facility] Comment on above:Performed By: #### TSH, CMP #### [facility] [address] [address] [address] Candy CortezCreatinine [Mass/Vol]0.78 mg/dLNormal0.55-1.02The [facility] HospitalComment on above:Performed By: #### TSH, CMP #### [facility] [address] [address] [address] Candy VillagranGFR-AF SAMMARINESE>60Normal>=60The [facility] HospitalComment on above:Performed By: #### TSH, CMP #### [facility] [address] [address] [address] Candy VillagranGFR-NON AF SAMMARINESE>60Normal>=60The [facility] HospitalComment on above:Performed By: #### TSH, CMP #### [facility] [address] [address] [address] Candy CortezGlobulin (S) [Mass/Vol]3.8 g/dLNormalThe [facility] HospitalComment on above:Performed By: #### TSH, CMP #### [facility] [address] [address] [address] Candy CortezGlucose [Mass/Vol]95 mg/pEQqvmds65-443Ubv [facility] Comment on above:Performed By: #### TSH, CMP #### [facility] [address] [address] [address] Candy CortezPotassium [Moles/Vol]4.8 mmol/LNormal3.5-5.1The [facility] Comment on above:Performed By: #### TSH, CMP #### [facility] [address] [address] [address] Candy CortezProtein [Mass/Vol]7.5 g/dLNormal6.4-8.2The [facility] Comment on above:Performed By: #### TSH, CMP #### [facility] [address] [address] [address] Candy Carneydium [Moles/Vol]141 mmol/JZfsrgy260-194Hvl [facility] Comment on above:Performed By: #### TSH, CMP #### [facility] [address] [place] [address] Dr. Candy Miranda nitrogen [Mass/Vol]13.0 mg/dLNormal7.0-18.0The [facility] HospitalComment on above:Performed By: #### TSH, CMP #### [facility] [address] [place] [address] Dr. Candy Miranda nitrogen/Creatinine [Mass ratio]16.7 mg/mgNoalThe [facility] HospitalComment on above:Performed By: #### TSH, CMP #### [facility] [address] [place] [address] Dr. Candy Muñoz 11-27-2640BVK1.818 uIU/mLNormal0.358-3.740The [facility] HospitalComment on above:Performed By: #### TSH, CMP #### [facility] [address] [place] [address] Dr. Candy Block RANDOM W/MICROSCOPICon 66-50-1706FPHYIGOKOMDX SEENNormalNONE SEENSouthwest General Health CenterComment on above:Performed By: #### UAMIC #### [facility] [address] [place] [address] Dr. Candy Zhangirubin Ql (U)NegativeNormalNEGATIVESouthwest General Health Center Comment on above:Performed By: #### UAMIC #### [facility] [address] [place] [address] Dr. Candy CortezCASTTREMAYNE SEENNormalNONE SEENSouthwest General Health CenterComment on above:Performed By: #### UAMIC #### [facility] [address] [place] [address] Dr. Candy CortezClarity (U)CLEARNormalCLEARThe [facility] HospitalComment on above: Performed By: #### UAMIC #### [facility] [address] [address] [address] Candy Mantilla (U)LT. YELLOWNormalYELLOWSouthwest General Health CenterComhenry ford [facility] on above:Performed By: #### UAMIC #### [facility] [address] [address] [address] Candy CortezCrystals LM Nom (Urine sed)NONE SEENNormalNONE SEENSouthwest General Health CenterComment on above:Performed By: #### UAMIC #### [facility] [address] [address] [address] Gupta ChangEpithelial cells LM Ql (Urine sed)RARENormalNONE SEEN /RARESouthwest General Health CenterComment on above:Performed By: #### UAMIC #### [facility] [address] [address] [address] Candy CortezGlucose Ql (U)NegativeNormalNEGATIVESouthwest General Health CenterComment on above:Performed By: #### UAMIC #### [facility] [address] [address] [address] Candy CortezHemoglobin Ql (U)NegativeNormalNEGATIVEMercy Health St[facility] on above:Performed By: #### UAMIC #### [facility] [address] [address] [address] Candy CortezKetones Ql (U)NegativeNormalNEGATIVESouthwest General Health CenterComment on above:Performed By: #### UAMIC #### [facility] [address] [address] [address] Candy CortezLEUKOCYTESNegativeNormalNEGATIVESouthwest General Health CenterComhenry ford [facility] hospital on above:Performed By: #### UAMIC #### [facility] [address] [address] [address] Candy CortezMUCOUSNONE SEENNormalNONE SEENSouthwest General Health CenterComment on above:Performed By: #### UAMIC #### [facility] [address] [address] [address] Candy CortezNitrite Ql (U)NegativeNormalNEGATIVEThe [facility] HospitalComment on above:Performed By: #### UAMIC #### [facility] [address] [address] [address] Candy CortezpH (U)7.0 [pH]Normal5-9The [facility] HospitalComment on above: Performed By: #### UAMIC #### [facility] [address] [place] [address] Dr. Candy CortezWpuoyZPZ7-0Ernqtk0-0Kdj [facility] HospitalComment on above:Performed By: #### UAMIC #### [facility] [address] [place] [address] Dr. Candy CortezSPEC GRAVITY<=1.990Hyskczev4.005-<=1.025The [facility] Comment on above:Performed By: #### UAMIC #### [facility] [address] [place] [address] Dr. Candy CortezUA PROTEINNegativeNormalNEGATIVE/ TRACEThe [facility] Comment on above:Performed By: #### UAMIC #### [facility] [address] [place] [address] Dr. Candy CortezUrobilinogen Qn (U)0.2 {Nicko'U}/dLNormal0.2 - 1.0The [facility] HospitalComment on above:Performed By: #### UAMIC #### [facility] [address] [place] [address] Dr. Candy CortezWBC0-2AbnormalNONE SEENThe [facility] HospitalComment on above: Performed By: #### UAMIC #### [facility] [address] [place] [address] Dr. Candy CortezVITAMIN B12on 39-08-1833Crsxroios (Vitamin B12) [Mass/Vol]201.0 pg/mRXfvzwo498.0-986.0The [facility] HospitalComment on above:Performed By: #### TSH, URIC, CMP, LIPID #### [facility] [address] [place] [address] Dr. Candy CortezVITAMIN D 25 OHon [id number] D 25-OH14.6 ng/mLNormalSouthwest General Health CenterComment on above:Performed By: #### TSH, URIC, CMP, LIPID #### [facility] [address] [address] [address] Candy BACONSEE [facility]Comment [facility]: Result Comment: <20 ng/mL Vit D deficient 20 - <30 ng/mL Vit D insufficient 30 - 100 ng/mL Vit D sufficient >100 ng/mL Potential ToxicityPerformed By: #### TSH, URIC, CMP, LIPID #### [facility] [address] [place] [address] Dr. Candy DavisID PROFILEon [id number]-HDL RATIO NORMSUniversity Hospitals Ahuja Medical CenterComhenry ford [facility] hospital on above:Result Comment: 3.3 - 4.4 LOW RISK 4.4 - 7.1 AVERAGE RISK 7.1 - 11.0 MODERATE RISK >11.0 HIGH RISKPerformed By: #### TSH, URIC, CMP, LIPID #### [facility] [address] [place] [address] Dr. Candy Pedrozaesterol [Mass/Vol]162 mg/dLNormal<=200[facility] Comment on above:Performed By: #### TSH, URIC, CMP, LIPID #### [facility] [address] [place] [address] Dr. Candy CortezCholesterol in HDL [Mass/Vol]74 mg/dLCritically iegw98-75XieSouthwest General Health CenterComment on above:Performed By: #### TSH, URIC, CMP, LIPID #### [facility] [address] [address] [address] Candy CortezCholesterol in LDL [Mass/Vol]54.8 mg/dLMercy Health St. Anne HospitalComhenry [facility] hospital on above:Performed By: #### TSH, URIC, CMP, LIPID #### [facility] [address] [place] [address] Dr. Candy Pedrozaestertaylor.total/Cholesterol in HDL [Mass ratio]2.2 {ratio} NormalSouthwest General Health CenterComment on above:Performed By: #### TSH, URIC, CMP, LIPID #### [facility] [address] [address] [address] Candy Rondon NORMAL> or = 60 mg/dl - LOW CARDIOVASCULAR RISK <40 mg/dl - HIGH CARDIOVASCULAR RISKRegional Medical Center on above:Performed By: #### TSH, URIC, CMP, LIPID #### [facility] [address] [address] [address] Candy CortezLDL CALC NORMALSEE [facility] HospitalComhenry [facility] on above:Result Comment: <100 mg/dl OPTIMAL 100 - 129 mg/dl NEAR OR ABOVE OPTIMAL 130 - 159 mg/dl BORDERLINE HIGH 160 - 189 mg/dl HIGH >190 mg/dl VERY HIGH Performed By: #### TSH, URIC, CMP, LIPID #### [facility] [address] [address] [address] Candy CortezTriglyceride [Mass/Vol]166 mg/dLCritically high<=150The [facility] on above:Performed By: #### TSH, URIC, CMP, LIPID #### [facility] [address] [address] [address] Candy RodriguezLDL CALC33.2 mg/dLRegional Medical Center on above: Performed By: #### TSH, URIC, CMP, LIPID #### [facility] [address] [place] [address] Dr. Candy Woodward [id number] [Catalytic activity/Vol]32 U/JNrnfvm59-63CxsMiami Valley Hospital on above:Performed By: #### TSH, URIC, CMP, LIPID #### [facility] [address] [address] [address] Candy Musa [id number] [Catalytic activity/Vol]52 U/WTpzism12-62Ddi [facility] on above:Performed By: #### TSH, URIC, CMP, LIPID #### [facility] [address] [address] [address] Candy DavisID PROFILEon [id number]-HDL RATIO NORMSUniversity Hospitals Ahuja Medical CenterComment on above:Result Comment: 3.3 - 4.4 LOW RISK 4.4 - 7.1 AVERAGE RISK 7.1 - 11.0 MODERATE RISK >11.0 HIGH RISKPerformed By: #### TSH, URIC, CMP, LIPID #### [facility] [address] [address] [address] Candy CortezCholesterol [Mass/Vol]178 mg/dLNormal<=200[facility] Comment on above:Performed By: #### TSH, URIC, CMP, LIPID #### [facility] [address] [place] [address] Dr. Candy Pedrozaesterol in HDL [Mass/Vol]80 mg/dLCritically hdge98-48AorSouthwest General Health CenterComment on above:Performed By: #### TSH, URIC, CMP, LIPID #### [facility] [address] [place] [address] Dr. Candy Pedrozaesterol in LDL [Mass/Vol]43.4 mg/dLMercy Health St. Anne HospitalComment on above:Performed By: #### TSH, URIC, CMP, LIPID #### [facility] [address] [place] [address] Dr. Candy Chamorro.total/Cholesterol in HDL [Mass ratio]2.2 {ratio} NormalSouthwest General Health CenterComhenry ford wyand[facility] hospital on above:Performed By: #### TSH, URIC, CMP, LIPID #### [facility] [address] [place] [address] Dr. Candy Rondon NORMAL> or = 60 mg/dl - LOW CARDIOVASCULAR RISK <40 mg/dl - HIGH CARDIOVASCULAR RISKMercy Health St. Anne HospitalComment on above:Performed By: #### TSH, URIC, CMP, LIPID #### [facility] [address] [place] [address] Dr. Candy Starks CALC NORMALSEE [facility] HospitalComment on above:Result Comment: <100 mg/dl OPTIMAL 100 - 129 mg/dl NEAR OR ABOVE OPTIMAL 130 - 159 mg/dl BORDERLINE HIGH 160 - 189 mg/dl HIGH >190 mg/dl VERY HIGH Performed By: #### TSH, URIC, CMP, LIPID #### [facility] [address] [place] [address] Dr. Candy CortezTriglyceride [Mass/Vol]273 mg/dLCritically high<=150The [facility] HospitalComment on above:Performed By: #### TSH, URIC, CMP, LIPID #### [facility] [address] [place] [address] Dr. Candy CortezVLDL CALC54.6 mg/dLNormalThe [facility] HospitalComment on above: Performed By: #### TSH, URIC, CMP, LIPID #### [facility] [address] [place] [address] Dr. Candy Campbell AUTO DIFFon [id number] #0.1 103/ulNormal0.0-0.1The [facility] HospitalComment on above:Performed By: #### CBC #### [facility] [address] [place] [address] Dr. Candy CortezBasophils/100 WBC (Bld)1.2 %Normal0.2-2.0[facility] Comment on above:Performed By: #### CBC #### [facility] [address] [place] [address] Dr. Candy Kamara #0.2 103/ulNormal0.0-0.7The [facility] HospitalComment on above: Performed By: #### CBC #### [facility] [address] [place] [address] Dr. Candy Villagranosinophils/100 WBC (Bld)2.8 %Normal0.9-7.0The [facility] Comment on above:Performed By: #### CBC #### [facility] [address] [place] [address] Dr. Candy Villagranrythrocyte distribution width (RBC) [Ratio]12.2 %Gimrwk28.0-15.0 The [facility] HospitalComment on above:Performed By: #### CBC #### [facility] [address] [place] [address] Dr. Candy CortezHematocrit (Bld) [Volume fraction]41.0 %Kkyknp34.0-48.0The [facility] HospitalComment on above:Performed By: #### CBC #### [facility] [address] [place] [address] Dr. Candy CortezHemoglobin (Bld) [Mass/Vol]13.6 g/jATiiqpn19.0-16.0The [facility] HospitalComment on above:Performed By: #### CBC #### [facility] [address] [place] [address] Dr. Candy Martines #0.00 10e3/ulNormal0.00-0.03The [facility] HospitalComment on above:Performed By: #### CBC #### [facility] [address] [place] [address] Dr. Candy Martines %0.0 %Normal0.0-0.5The [facility] HospitalComment on above: Performed By: #### CBC #### [facility] [address] [place] [address] Dr. Candy Bragg #2.7 103/ulNormal1.2-3.8The [facility] HospitalComment on above:Performed By: #### CBC #### [facility] [address] [place] [address] Dr. Candy Nairhocytes/100 WBC (Bld)47.5 %Phjtvu58.5-60.0The [facility] HospitalComment on above:Performed By: #### CBC #### [facility] [address] [place] [address] Dr. Candy DriscollUAL DIFF REQNONormalThe [facility] HospitalComment on above: Performed By: #### CBC #### [facility] [address] [place] [address] Dr. Candy Black (RBC) [Entitic mass]32.5 gpDtborg81.7-34.0The [facility] HospitalComment on above:Performed By: #### CBC #### [facility] [address] [place] [address] Dr. Candy CervantesHC (RBC) [Mass/Vol]33.2 g/lQQljwci33.9-35.2The [facility] HospitalComment on above:Performed By: #### CBC #### [facility] [address] [place] [address] Dr. Candy CervantesV (RBC) [Entitic vol]97.9 bXLwfwbs42.0-99.0The [facility] HospitalComment on above:Performed By: #### CBC #### [facility] [address] [place] [address] Dr. Candy Glass #0.5 103/ulNormal0.3-0.8The [facility] HospitalComment on above:Performed By: #### CBC #### [facility] [address] [place] [address] Dr. Candy Linkocytes/100 WBC (Bld)8.4 %Normal1.7-12.0The [facility] Comment on above:Performed By: #### CBC #### [facility] [address] [place] [address] Dr. Candy Melendez #2.3 103/ulNormal1.4-6.5The [facility] HospitalComment on above:Performed By: #### CBC #### [facility] [address] [place] [address] Dr. Candy Moctezumautrophils/100 WBC (Bld)40.1 %Critically low43.0-75.0The [facility] HospitalComment on above:Performed By: #### CBC #### [facility] [address] [place] [address] Dr. Candy Joyalet mean volume (Bld) [Entitic vol]11.5 fLNormal9.5-13.5The [facility] HospitalComment on above:Performed By: #### CBC #### [facility] [address] [place] [address] Dr. Candy TurpinT305 103/hxDhnqzx656-155Rll [facility] HospitalComment on above: Performed By: #### CBC #### [facility] [address] [place] [address] Dr. Candy CortezRBC4.19 106/ulCritically low4.20-5.40The [facility] HospitalComment on above:Performed By: #### CBC #### [facility] [address] [address] [address] Candy CortezWBC5.7 103/ulNormal4.0-11.0The [facility] HospitalComment on above: Performed By: #### CBC #### [facility] [address] [place] [address] Dr. Candy CortezFREE T4on 20-35-3428Gtut T4 [Mass/Vol]0.78 ng/dLNormal0.76-1.46 The [facility] HospitalComment on above:Performed By: #### TSH, URIC, CMP, LIPID #### [facility] [address] [place] [address] Dr. Candy DavisID PROFILEon [id number]-HDL RATIO NORMSEE BELOWMercy Health St. Anne HospitalComment on above:Result Comment: 3.3 - 4.4 LOW RISK 4.4 - 7.1 AVERAGE RISK 7.1 - 11.0 MODERATE RISK >11.0 HIGH RISKPerformed By: #### TSH, URIC, CMP, LIPID #### [facility] [address] [place] [address] Dr. Candy CortezCholesterol [Mass/Vol]167 mg/dLNormal<=200The [facility] Comment on above:Performed By: #### TSH, URIC, CMP, LIPID #### [facility] [address] [place] [address] Dr. Candy Pedrozaesterol in HDL [Mass/Vol]64 mg/dLCritically xtie00-74Qle [facility] on above:Performed By: #### TSH, URIC, CMP, LIPID #### [facility] [address] [place] [address] Dr. Candy Pedrozaesterol in LDL [Mass/Vol]43.6 mg/dLMercy Health St. Anne HospitalComment on above:Performed By: #### TSH, URIC, CMP, LIPID #### [facility] [address] [address] [address] Candy CortezCholesterol.total/Cholesterol in HDL [Mass ratio]2.6 {ratio} NormalThe [facility] Hospitalment on above:Performed By: #### TSH, URIC, CMP, LIPID #### [facility] [address] [address] [address] Candy Rondon NORMAL> or = 60 mg/dl - LOW CARDIOVASCULAR RISK <40 mg/dl - HIGH CARDIOVASCULAR RISKRegional Medical Center on above:Performed By: #### TSH, URIC, CMP, LIPID #### [facility] [address] [address] [address] Candy CortezLDL CALC NORMALSEE BELOWMercy Health St. Anne HospitalComment on above:Result Comment: <100 mg/dl OPTIMAL 100 - 129 mg/dl NEAR OR ABOVE OPTIMAL 130 - 159 mg/dl BORDERLINE HIGH 160 - 189 mg/dl HIGH >190 mg/dl VERY HIGH Performed By: #### TSH, URIC, CMP, LIPID #### [facility] [address] [address] [address] Candy CortezTriglyceride [Mass/Vol]297 mg/dLCritically high<=150The [facility] on above:Performed By: #### TSH, URIC, CMP, LIPID #### [facility] [address] [address] [address] Candy CortezVLDL CALC59.4 mg/dLNoUniversity Hospitals Samaritan Medical CenterComment on above: Performed By: #### TSH, URIC, CMP, LIPID #### [facility] [address] [address] [address] Candy CortezPROF 14(COMP METB)on 94-20-5088Zgpzsfe [Mass/Vol]3.6 g/dLNormal 3.4-5.0The [facility] on above:Performed By: #### TSH, URIC, CMP, LIPID #### [facility] [address] [place] [address] Dr. Candy CortezAlbumin/Globulin [Mass ratio]1.0 {ratio}NormalThe Daniel HospitalComment on above:Performed By: #### TSH, URIC, CMP, LIPID #### [facility] [address] [address] [address] Candy Figueredo [Catalytic activity/Vol]79 U/NPkxuxz12-114Snw [facility] HospitalComment on above:Performed By: #### TSH, URIC, CMP, LIPID #### [facility] [address] [place] [address] Dr. Candy Yap [Catalytic activity/Vol]23 U/GVxxtwr47-35Rhh [facility] HospitalComment on above:Performed By: #### TSH, URIC, CMP, LIPID #### [facility] [address] [place] [address] Dr. Candy Borjas gap [Moles/Vol]9.7 mmol/LNormalThe [facility] HospitalComment on above:Performed By: #### TSH, URIC, CMP, LIPID #### [facility] [address] [place] [address] Dr. Candy Sparks [Catalytic activity/Vol]20 U/JBoqzpq12-44Bxm [facility] HospitalComment on above:Performed By: #### TSH, URIC, CMP, LIPID #### [facility] [address] [place] [address] Dr. Candy CortezBilirubin [Mass/Vol]0.4 mg/dLNormal0.2-1.0[facility] Comment on above:Performed By: #### TSH, URIC, CMP, LIPID #### [facility] [address] [place] [address] Dr. Candy CortezCalcium [Mass/Vol]9.1 mg/dLNormal8.5-10.1The [facility] Comment on above:Performed By: #### TSH, URIC, CMP, LIPID #### [facility] [address] [place] [address] Dr. Candy CortezChloride [Moles/Vol]103 mmol/GQrvqlu64-900Crb [facility] Comment on above:Performed By: #### TSH, URIC, CMP, LIPID #### [facility] [address] [place] [address] Dr. Candy CortezCO2 [Moles/Vol]29.0 mmol/OGlcgbr03.0-32.0The [facility] Comment on above:Performed By: #### TSH, URIC, CMP, LIPID #### [facility] [address] [address] [address] Candy CortezCreatinine [Mass/Vol]0.72 mg/dLNormal0.55-1.02The [facility] HospitalComment on above:Performed By: #### TSH, URIC, CMP, LIPID #### [facility] [address] [address] [address] Candy VillagranGFR-AF SAMMARINESE>60Normal>=60The [facility] HospitalComment on above:Performed By: #### TSH, URIC, CMP, LIPID #### [facility] [address] [address] [address] Candy VillagranGFR-NON AF SAMMARINESE>60Normal>=60The [facility] HospitalComment on above:Performed By: #### TSH, URIC, CMP, LIPID #### [facility] [address] [address] [address] Candy CortezGlobulin (S) [Mass/Vol]3.7 g/dLNormalThe [facility] HospitalComment on above:Performed By: #### TSH, URIC, CMP, LIPID #### [facility] [address] [address] [address] Candy CortezGlucose [Mass/Vol]93 mg/tTQglvim33-220Fvi [facility] Comment on above:Performed By: #### TSH, URIC, CMP, LIPID #### [facility] [address] [address] [address] Candy CortezPotassium [Moles/Vol]4.7 mmol/LNormal3.5-5.1The [facility] Comment on above:Performed By: #### TSH, URIC, CMP, LIPID #### [facility] [address] [address] [address] Candy CortezProtein [Mass/Vol]7.3 g/dLNormal6.4-8.2The [facility] Comment on above:Performed By: #### TSH, URIC, CMP, LIPID #### [facility] [address] [address] [address] Candy Loeraum [Moles/Vol]137 mmol/DLvaqsd513-225Atc [facility] Comment on above:Performed By: #### TSH, URIC, CMP, LIPID #### [facility] [address] [address] [address] Candy Miranda nitrogen [Mass/Vol]12.0 mg/dLNormal7.0-18.0The [facility] HospitalComment on above:Performed By: #### TSH, URIC, CMP, LIPID #### [facility] [address] [place] [address] Dr. Candy Miranda nitrogen/Creatinine [Mass ratio]16.7 mg/mgNormalThe [facility] HospitalComment on above:Performed By: #### TSH, URIC, CMP, LIPID #### [facility] [address] [place] [address] Dr. Candy Muñoz 08-06-7768VZM5.748 uIU/mLNormal0.358-3.740The [facility] HospitalComment on above:Performed By: #### TSH, URIC, CMP, LIPID #### [facility] [address] [place] [address] Dr. Candy Block RANDOM W/MICROSCOPICon 79-20-6806EAJRCEUDOVHL SEENNormalNONE SEENSouthwest General Health CenterComment on above:Performed By: #### UAMIC #### [facility] [address] [place] [address] Dr. Candy Luciano Ql (U)NegativeNormalNEGATIVESouthwest General Health Center Comment on above:Performed By: #### UAMIC #### [facility] [address] [place] [address] Dr. Candy Anna SEENNormalNONE SEENSouthwest General Health CenterComment on above:Performed By: #### UAMIC #### [facility] [address] [place] [address] Dr. Candy Pathak (U)CLEARNormalCLEARSouthwest General Health CenterComment on above: Performed By: #### UAMIC #### [facility] [address] [address] [address] Candy Mantilla (U)LT. YELLOWNormalYELLOWSouthwest General Health CenterComment on above:Performed By: #### UAMIC #### [facility] [address] [address] [address] Candy CortezCrystals LM Nom (Urine sed)NONE SEENNormalNONE SEENSouthwest General Health CenterComment on above:Performed By: #### UAMIC #### [facility] [address] [address] [address] Gupta ChangEpithelial cells LM Ql (Urine sed)RARENormalNONE SEEN /RARESouthwest General Health CenterComment on above:Performed By: #### UAMIC #### [facility] [address] [address] [address] Candy CortezGlucose Ql (U)NegativeNormalNEGATIVESouthwest General Health CenterComment on above:Performed By: #### UAMIC #### [facility] [address] [address] [address] Candy CortezHemoglobin Ql (U)NegativeNormalNEGATIVEMercy Health St. [facility] on above:Performed By: #### UAMIC #### [facility] [address] [address] [address] Candy CortezKetones Ql (U)NegativeNormalNEGATIVESouthwest General Health CenterComment on above:Performed By: #### UAMIC #### [facility] [address] [address] [address] Candy CortezLEUKOCYTESNegativeNormalNEGATIVESouthwest General Health CenterComhenry ford [facility] on above:Performed By: #### UAMIC #### [facility] [address] [address] [address] Candy CortezMUCOUSTRACEAbnormalNONE SEENSouthwest General Health CenterComment on above:Performed By: #### UAMIC #### [facility] [address] [address] [address] Candy Toney Ql (U)NegativeNormalNEGATIVEThe [facility] HospitalComment on above:Performed By: #### UAMIC #### [facility] [address] [place] [address] Dr. Candy CortezpH (U)7.0 [pH]Normal5-9The [facility] HospitalComment on above: Performed By: #### UAMIC #### [facility] [address] [place] [address] Dr. Candy CortezRBCNONE SEENAbnormal0-2The [facility] HospitalComment on above: Performed By: #### UAMIC #### [facility] [address] [place] [address] Dr. Candy CortezSPEC GRAVITY1.522Lfnwuu5.005-<=1.025The [facility] HospitalComment on above:Performed By: #### UAMIC #### [facility] [address] [place] [address] Dr. Candy Block PROTEINNegativeNormalNEGATIVE/ TRACEThe [facility] Comment on above:Performed By: #### UAMIC #### [facility] [address] [place] [address] Dr. Candy CortezUrobilinogen Qn (U)0.2 {Nicko'U}/dLNormal0.2 - 1.0The [facility] HospitalComment on above:Performed By: #### UAMIC #### [facility] [address] [place] [address] Dr. Candy CortezWBCNONE SEENNormalNONE SEENThe [facility] HospitalComment on above: Performed By: #### UAMIC #### [facility] [address] [place] [address] Dr. Candy CortezURIC ACID SERUMon 89-76-9753Cyxuw [Mass/Vol]3.1 mg/dLNormal 2.6-6.0The [facility] HospitalComment on above:Performed By: #### TSH, URIC, CMP, LIPID #### [facility] [address] [place] [address] Dr. Candy Cortez Vital Signs Date TimeVital SignValuePerforming DqqvmiikwBqfvmxnz27-39-0106 14:10-0400Body ymllnq571.56 cmLisa Aichholz DIRECTOR FRAUD-C Work Phone: [phone]10-01-2025 14:10-0400 Body mass index (BMI) [Ratio]23.5 kg/m2Lisa Aichholz DIRECTOR FRAUD-C Work Phone: [phone]10-01-2025 14:10-0400 Body pqlsgghrzuy17.1 [degF]Carmela Aichholz DIRECTOR FRAUD-C Work Phone: [phone]10-01-2025 14:10-0400 Body admxfr76.14 kgLisa Aichholz DIRECTOR FRAUD-C Work Phone: [phone]10-01-2025 14:10-0400 Diastolic blood dytqmmuo717 mm[Hg]Carmela Aichholz DIRECTOR FRAUD-C Work Phone: [phone]10-01-2025 14:10-0400 Heart rate78 /minLisa Aichholz DIRECTOR FRAUD-C Work Phone: [phone]10-01-2025 14:10-0400 Respiratory rate18 /minLisa Aichholz DIRECTOR FRAUD-C Work Phone: [phone]10-01-2025 14:10-0400 SaO2% (BldA) [Mass fraction]99 %Carmela Aichholz DIRECTOR FRAUD-C Work Phone: [phone] [place], [place] [address]10-01-2025 14:10-0400 Systolic blood ahhckenv739 mm[Hg]Carmela Aichholz DIRECTOR FRAUD-C Work Phone: [phone]07-01-2025 14:19-0400 Body mass index (BMI) [Ratio]24 kg/m2Lisa Aichholz DIRECTOR FRAUD Work Phone: [facility] HospitalPqvomfaxbk10-59-8627 14:19-0400Body temperature 98.49 [degF]Carmela Lester DIRECTOR FRAUD Work Phone: [facility] HospitalFmvvlglijn40-29-3681 14:19-0400Body dudapw92.41 kgCarmela Lester DIRECTOR FRAUD Work Phone: [facility] HospitalFiricahfjq77-04-5689 14:19-0400Diastolic blood qtixblfz56 mm[Hg]Carmela Lester DIRECTOR FRAUD Work Phone: [facility] HospitalIjmneexcde63-22-1985 14:19-0400Heart rate78 /min Carmela Lester DIRECTOR FRAUD Work Phone: [facility] HospitalRpkwvvegin05-19-2513 14:19-0400Respiratory rate18 /minCarmela Lester DIRECTOR FRAUD Work Phone: [facility] HospitalQbckvpshvg32-49-5643 14:19-9236BrD3% (BldA) [Mass fraction]98 %Carmela Lester DIRECTOR FRAUD Work Phone: [facility] HospitalQfsyhnuxyr10-06-1924 14:19-0400Systolic blood bggpcbsu517 mm[Hg]Carmela Lester DIRECTOR FRAUD Work Phone: [facility] HospitalBbwkzlrngi93-11-6188 15:21-0500Body gsbzub180.6 cmNicole Saira DO Work Phone: noMiss[facility]-SullivanDjdpcwngot75-68-8260 15:21-0500Body mass index (BMI) [Ratio]27.33 kg/r7Eidsjt Saira DO Work Phone: [facility] HospitalYsqitipfak34-40-1206 15:21-0500Body wljwby31.21 kgNicole Saira DO Work Phone: [facility] HospitalDqyowuaviz24-02-2026 15:21-0500Diastolic blood bkcbyaoa16 mm[Hg]Den Saira DO Work Phone: [facility] HospitalOzryewqdng93-82-9498 15:21-0500Heart rate78 /min Den Saira DO Work Phone: noMiss[facility]-SullivanGaajoncyzj55-96-9294 15:21-5169PrB6% (BldA) [Mass fraction]98 %Den Saira DO Work Phone: [facility] HospitalKfllgwjpum74-73-8191 15:21-0500Systolic blood yrkrbxfs925 mm[Hg]Den Saira DO Work Phone: [facility] HospitalIcdoxyqtoq87-70-5071 10:52-0500Body fspcoz979.56 cmLisa Aichholz Work Phone: [phone] [place], [place] [address]1911-04-2024 10:52-0500 Body mass index (BMI) [Ratio]27 kg/m2Lisa Aichholz Work Phone: [phone]11-04-2024 10:52-0500 Body ejzwdp61.44 kgLisa Aichholz Work Phone: [phone] [address]10-14-2024 10:03-0400 Body wjyfly694.56 cmLisa Aichholz Work Phone: [phone]10-14-2024 10:03-0400 Body mass index (BMI) [Ratio]26.9 kg/m2Lisa Aichholz Work Phone: [phone]10-14-2024 10:03-0400 Body .32 kgLisa Aichholz Work Phone: [phone] [place], [place] [address]09-19-2024 12:58-0400 Body jfnkud336.56 cmLisa Aichholz Work Phone: [phone]09-19-2024 12:58-0400 Body mass index (BMI) [Ratio]27 kg/m2Lisa Aichholz Work Phone: [phone]09-19-2024 12:58-0400 Body iaycsx56.38 kgLisa Aichholz Work Phone: [phone]08-15-2024 13:18-0400 Body hgbotm18.76 kgLisa Aichholz Work Phone: [facility]07-25-2024 14:110400 Body ovgvqi43.76 kgC[facility] Encounters Encounter DateEncounter TypeCare ProviderFacilityStart: 12-12-2024 End: 82-68-9773ddsawdclsrIwxy J Aichholz DIRECTOR FRAUD-C Work Phone: [facility] Work Phone: Start: 12-12-2024 End: 40-31-2802Crghjwj encounter procedureCarmela Lester DIRECTOR FRAUD-C-[facility] Work Phone: Start: 10-17-2024 End: 17-98-2406SovwteOzdy Aichholz DIRECTOR FRAUD Work Phone: noms CWM FMComment on above:Bilateral hand painStart: 10-16-2024 End: 93-33-8884OhguuqZkpz Aichholz DIRECTOR FRAUD Work Phone: noms CWM FMComment on above:Bilateral hand pain (Primary Dx)Start: 10-10-2024 End: 78-90-9088Tkivrjroh Result EncounterLisa Rossz DIRECTOR FRAUD Work Phone: noms External Department UnsolicitedStart: 10-10-2024 End: 84-28-4863Qorcypfyv Result EncounterLisa Lester DIRECTOR FRAUD Work Phone: noms External Department UnsolicitedStart: 09-11-2024 End: 62-54-5972Xltqmr outpatient visit 25 minutesLisa Lester DIRECTOR FRAUD Work Phone: noms CWM FMComment on above:Primary hypertension (Primary Dx); 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 ; Hypothyroidism (acquired) ; Cigarette nicotine dependence without complication; Mixed hyperlipidemia ; Essential hypertension ; Trapezius muscle spasm; Bilateral hand pain; Breast cancer screening declinedStart: 09-11-2024 End: 56-70-5370Ngvauk flowsheetCarmela Lester DIRECTOR FRAUD Work Phone: [facility] FMStart: 09-11-2024 End: 68-40-4060Hazhsq flowsheetLisa Aichholz DIRECTOR FRAUD Work Phone: [facility] CWM FMStart: 09-11-2024 End: 35-66-3140mtulnxqaryIUBC AICHHOLZNot AvailableStart: 09-07-2024 End: 66-24-1628Deduxnmws Result EncounterLisa Aichholz DIRECTOR FRAUD Work Phone: noms External Department UnsolicitedStart: 09-07-2024 End: 67-68-6318Soxqeanrb Result EncounterLisa Aichholz DIRECTOR FRAUD Work Phone: noms External Department UnsolicitedStart: 08-20-2024 End: 90-09-0762InykrwXvhb Aichholz DIRECTOR FRAUD Work Phone: noms CWM FMComment on above:Essential hypertension (CMS/HCC); Primary hypertension (CMS/HCC); 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 Rita's Hospitaltart: 04-09-2024 End: 20-00-4064Eutcslf encounter procedureNicole Saira DO Work Phone: aNA CHUCKUSKYComment on above:Idiopathic peripheral neuropathyStart: 04-09-2024 End: 66-61-2620wfqrmjgnmxALQHHW DANNERNot AvailableStart: 04-09-2024 End: 88-13-4720Esvpqf flowsheetNicole Saira DO Work Phone: ana SANDUSKYStart: 04-09-2024 End: 15-80-8887Xflqhr flowsheetNicole Saira DO Work Phone: aNA SANDUSKYStart: 03-31-2024 End: 47-61-5686Dtufyxdgz Result EncounterNicole Saira DO Work Phone: noms External Department UnsolicitedStart: 03-31-2024 End: 83-35-6505Zosorwrfe Result EncounterNicole Saira DO Work Phone: noms External Department UnsolicitedStart: 03-26-2024 End: 89-61-7009Lcnjpd consultation new/estab patient 60 minNicole Saira DO Work Phone: aNA BELLEVUEComment on above:Idiopathic peripheral neuropathy (Primary Dx); Numbness and tingling; Arthralgia, unspecified jointStart: 03-26-2024 End: 69-09-2614jmelkfgzzjUTZCLJ DANNERNot AvailableStart: 03-26-2024 End: 00-19-7638Mbnadi flowsheetNicole Saira DO Work Phone: ana BELLEVUEStart: 03-26-2024 End: 72-38-1183Xezmfw flowsheetNicole Saira DO Work Phone: ana BELLEVUEStart: 03-13-2024 End: 10-58-2197JhnoqhObxh Aichholz DIRECTOR FRAUD Work Phone: [facility] FMComment on above:Essential hypertension (CMS/HCC)Start: 03-02-2024 End: 90-21-1466kbzdpkxymqDorv N BialaskiFacility:[facility]orial Health Systemtart: 02-29-2024 End: 36-98-3917QwpfosMruy Aichholz DIRECTOR FRAUD Work Phone: [facility] FMComment on above: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 (CM S/HCC)Start: 02-07-2024 End: 34-23-3655Svcqzmkzi encounterLisa Lester DIRECTOR FRAUD Work Phone: [facility] FMStart: 02-01-2024 End: 80-77-9385Endniny encounter procedureCarmela Lester Work Phone: [phone] [place] [address] [facility]tr[facility] Work Phone: Start: 02-01-2024 End: 08-86-9926vsibxjtsmqGjoe J Aichholz Work Phone: [facility] Work Phone: Start: 01-16-2024 End: 66-40-6650Itenjbr encounter procedureLisa Aichholz Work Phone: [facility] Work Phone: start: 01-13-2024 End: 56-66-2548Gjdgypd encounter procedureLisa Aichholz Work Phone: [phone] [place] [address]-[facility] Work Phone: Start: 01-13-2024 End: 44-22-3379ajgzvryahuRvok J Aichholz Work Phone: [facility] Work Phone: Start: 12-26-2023 End: 55-41-4244uwubhfggnpNqkq J Aichholz Work Phone: [facility] Work Phone: Start: 12-26-2023 End: 25-96-2155Esvxpey encounter procedureLisa Aichholz Work Phone: [facility] Work Phone: start: 12-12-2023 End: 10-77-5019uzulstscbnLqxqpit Óscar Gayle MDFacility:[facility] Start: 12-01-2023 End: 36-42-1653agqcarjigkWqtp J Aichholz Work Phone: [facility] Work Phone: Start: 12-01-2023 End: 58-15-9228Olbseim encounter procedureLisa Aichholz Work Phone: [facility] Work Phone: start: 11-24-2023 End: 45-01-9565FepwccUhuv Aichholz DIRECTOR FRAUD Work Phone: [facility] CWM FMComment on above: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 (CM S/HCC)Start: 11-22-2023 End: 43-90-6872CnbtjgHddo Aichholz DIRECTOR FRAUD Work Phone: [facility] CWM FMComment on above: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 (CM S/HCC); Neuropathy; Essential hypertension (CMS/HCC); Hypothyroidism (acquired) (CMS/HCC); Primary hypertension (CMS/HCC); Trapezius muscle spasmStart: 11-21-2023 End: 63-46-0910arwfjgxyctDezuflx Vytautas Giedraitis MDFacility:[facility] Start: 10-31-2023 End: 69-82-3196pwohsgrjcvArgqwyt Vytautas Giedraitis MDFacility:[facility] [place] Start: 10-27-2023 End: 76-23-6878dlykkfghavCiqu J Aichholz Work Phone: [facility] Work Phone: Start: 10-27-2023 End: 79-34-8900Ipclolu encounter procedureLisa Aichholz Work Phone: [facility] Neurosurgery Work Phone: start: 10-27-2023 End: 42-97-8930Yubbvqu encounter procedureLisa Aichholz Work Phone: [facility] Work Phone: Start: 10-27-2023 End: 25-74-3681imrvpfvtpbEqum J Aichholz Work Phone: [facility] Work Phone: Start: 10-06-2023 End: 48-98-7739bqvlwziqagKbhxidtbuSelect [facility] Work Phone: Start: 10-06-2023 End: 75-69-8283Kgoamdt encounter procedureMartin [facility] Work Phone: start: 09-29-2023 End: 92-15-3269lwfpiqxobhWOCTGXMHNZO HASSETTNot AvailableStart: 06-08-2023 End: 39-49-6376wccjlqzlrnFQMN St. Rita's Hospitaltart: 07-22-2022 End: 32-57-4348vnsgfudeitRKL CARMELA AICHHOLZFacility:V7Celdt: 07-05-2022 End: 61-78-4986qehmkqhoclPKR CARMELA AICHHOLZFacility:E7Ulyep: 05-10-2022 End: 47-05-6158bkzyjcypflLOM CARMELA AICHHOLZFacility:U9Spmbt: 01-22-2022 End: 01-93-9560oxzhfbfchvOHD CARMELA AICHHOLZFacility:H1 Procedures DateProcedureProcedure DetailPerforming ClinicianStart: 38-80-4721Ggtfl hand 2 viewsLisa Aichholz DIRECTOR FRAUD Work Phone: Start: 94-11-8882Jxfhcu cancer screening declined Breast cancer screening declinedLisa Aichholz DIRECTOR FRAUD Work Phone: Start: 32-17-9313DZK CBC WITH AUTO DIFFLisa Aichholz DIRECTOR FRAUD Work Phone: Start: 04-09-2024 End: 56-09-9814Zwwyly emg ea extremty w/paraspinl area completeNicole Saira DO Work Phone: Start: 23-05-1704KKN FOLIC ACIDNicole Saira DO Work Phone: Start: 83-78-9157BCS of cervical spine without contrastLisa Aichholz Work Phone: Start: 80-16-8839Y-ray of cervical spineLisa Aichholz Work Phone: Breast cancer screening declinedBreast cancer screening declinedLisa Lester DIRECTOR FRAUD-C Work Phone: Plan of Treatment DateCare ActivityDetailAuthorStart: 34-37-7354Xmfzowfxt for malignant neoplasm of colonNOMS HealthcareStart: 12-12-2024 End: 38-70-0804Jtynxum encounter vqviuqcem26/01/2025 2:00 PM EDT Office Visit [facility] [address] [place] [id number] Carmela Lester, EMMANUEL [address] [place] [address] [facility] FMStart: 85-19-9676Lbnsbyhiu vaccinationTIMPANOGOS REG[facility]AL [facility] HealthcareStart: 09-11-2024 End: 94-81-2686Ixhrpdn encounter procedureNOMS M FMComment on above:ERICK (obstructive sleep apnea) (Primary Dx); 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 ; Primary hypertension ; Hypothyroidism (acquired) ; Cigarette nicotine dependence without complication; Mixed hyperlipidemiaStart: 09-11-2024 End: 71-35-7803RB Hand - bilateral 2 ViewsXR hand 1 or 2 views bilateral Imaging Routine Bilateral hand pain Expected: 09/11/2024 (Approximate), Expires: 09/11/2025[facility] Work Phone: Comment on above:Expected: 09/11/2024 (Approximate), Expires: 09/11/2025Start: 08-20-2024 End: 84-88-1262KJV W Auto Differential panel - BloodCBC and differential Lab Routine Coronary artery disease involving modoc coronary artery of nativeheart without angina pectoris (CMS/HCC) Expected: 08/20/2024 (Approximate), Expires: 08/20/2025[facility] Work Phone: Comment on above:Expected: 08/20/2024 (Approximate), Expires: 08/20/2025Start: 08-20-2024 End: 22-68-1444Otzwrkciizzyc metabolic 2000 panel - Serum or PlasmaComprehensive metabolic panel Lab Routine Essential hypertension ([facility]/HCC) 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 ([facility]) Expected: 08/20/2024 (Approximate), Expires: 08/20/2025[facility] HealthcareComment on above:Expected: 08/20/2024 (Approximate), Expires: 08/20/2025Start: 08-20-2024 End: 13-37-6776Twlha 1996 panel - Serum or PlasmaLipid panel Lab Routine 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 ([facility]) Expected: 08/20/2024 (Approximate), Expires: 08/20/2025[facility] HealthcareComment on above:Expected: 08/20/2024 (Approximate), Expires: 08/20/2025Start: 08-20-2024 End: 46-27-2347Bccltdocveey/Creatinine panel in random UrineMicroalbumin / creatinine, urine ratio Lab Routine Essential hypertension ([facility]) Expected: 08/20/2024 (Approximate), Expires: 08/20/2025[facility] HealthcareComment on above: Expected: 08/20/2024 (Approximate), Expires: 08/20/2025Start: 08-20-2024 End: 39-95-7070Uduldvsyibg [Units/volume] in Serum or PlasmaTSH Lab Routine [place] [place] Expected: 08/20/2024 (Approximate), Expires: 08/20/2025[facility] HealthcareComment on above:Expected: 08/20/2024 (Approximate), Expires: 08/20/2025Start: 08-20-2024 End: 90-38-0547Esnnnqamh (T4) free [Mass/volume] in Serum or PlasmaT4, free Lab Routine Hypothyroidism (acquired) ([facility]) Expected: 08/20/2024 (Approximate), Expires: 08/20/2025[facility] HealthcareComment on above:Expected: 08/20/2024 (Approximate), Expires: 08/20/2025Start: 08-20-2024 End: 32-28-7468Noltpydzuw complete panel - UrineUrinalysis with reflex microscopic (clean catch) Lab Routine Essential hypertension (CMS/HCC) Expected: 08/20/2024 (Approximate), Expires: 08/20/2025[facility] HealthcareComment on above: Expected: 08/20/2024 (Approximate), Expires: 08/20/2025Start: 05-23-2024 End: 90-79-6048Isrltfk encounter fdhyxczqk24/12/2025 1:15 PM EDT Office Visit GINA SANCHEZ [address] [place] [address] Den Chávez, DO [address] [place] [address] GINA MORENOEVUEStart: 05-17-2024 End: 80-65-1717Zbciioq encounter ncdemofwx47/06/2025 1:15 PM EST Office Visit GINA SANCHEZ [address] [place] [phone] Den Chávez, DO [address] [place] [address] GINA MORENOEVUEStart: 04-09-2024 End: 47-41-0553Umuvdeo encounter procedureANA AUBREYYComment on above:Arrived Start: 03-26-2024 End: 72-03-6619Poojjnl encounter procedureNOMS SANCHEZ STATE ROUTEComment on above:ArrivedStart: 03-26-2024 End: 40-20-5155Wzivmjgwy (Vitamin B12) [Mass/volume] in Serum or PlasmaVitamin B12 Lab Routine Idiopathic peripheral neuropathy Expected: 03/26/2024 (Approximate), Expires: 03/26/2025[facility] Work Phone: comment on above:Expected: 03/26/2024 (Approximate), Expires: 03/26/2025Start: 03-26-2024 End: 39-39-7364OKQ 2 ExtremitiesEMG 2 Extremities Neurology Routine Idiopathic peripheral neuropathy Expected: 03/26/2024 (Approximate), Expires: 03/26/2025 [facility] HealthcareComment on above:Expected: 03/26/2024 (Approximate), Expires: 03/26/2025Start: 03-26-2024 End: 50-38-3920Gtcyjv [Mass/volume] in Serum or PlasmaFolate Lab Routine Idiopathic peripheral neuropathy Expected: 03/26/2024 (Approximate), Expires: 03/26/2025[facility] HealthcareComment on above:Expected: 03/26/2024 (Approximate), Expires: 03/26/2025Start: 03-26-2024 End: 31-29-3923Tzsctaw Ab [Titer] in Serum by ImmunofluorescenceANA Lab Routine Idiopathic peripheral neuropathy Expected: 03/26/2024 (Approximate), Expires: 03/26/2025[facility] HealthcareComment on above:Expected: 03/26/2024 (Approximate), Expires: 03/26/2025Start: 03-26-2024 End: 65-55-2773JNQ 9-10 NervesNVC 9-10 Nerves Neurology Routine Idiopathic peripheral neuropathy Expected: 03/26/2024 (Approximate), Expires: 03/26/2025 [facility] HealthcareComment on above:Expected: 03/26/2024 (Approximate), Expires: 03/26/2025Start: 03-26-2024 End: 29-90-7165Fqegeno electrophoresis, serumProtein electrophoresis, serum Lab Routine Idiopathic peripheral neuropathy Expected: 03/26/2024 (Approximate), Expires: 03/26/2025[facility] HealthcareComment on above:Expected: 03/26/2024 (Approximate), Expires: 03/26/2025Start: 03-26-2024 End: 15-04-4089Plimdnokld factor [Units/volume] in Serum or PlasmaRheumatoid factor Lab Routine Idiopathic peripheral neuropathy Expected: 03/26/2024 (Approximate), Expires: 03/26/2025[facility] HealthcareComment on above:Expected: 03/26/2024 (Approximate), Expires: 03/26/2025Start: 03-20-2024 End: 08-48-2429[place]yelrup encounter /07/2025 1:20 PM EST Office Visit [facility] [address] [place] [address] Carmela Lester, EMMANUEL [address] [place] [phone] [facility] FMStart: 88-32-3965Nwwnxfcsu vaccinationInfluenza Vaccine (#1)[facility] HealthcareStart: 46-96-3121Q-ray of cervical spineXR cerv spine AP/LAT/FLX/EXTMemorial Health Systemtart: 29-92-1177LG Cervical spine 4 [facility] Centertart: 97-74-9836Etxgngw [facility] Work Phone: Start: 60-32-3597Ivkickqmy for malignant neoplasm of cervixHPV/CotestNOMS HealthcareStart: 10-29-3022Apuuclpth for malignant neoplasm of cervixPap SmearNOMS HealthcareStart: 40-65-2162Mnrbkkkdt for malignant neoplasm of colonNOMS HealthcareElectromyographyCleveland Clinic Fairview HospitalMR Cervical spine WO contrastCleveland Clinic Fairview HospitalPatient referralMetrohealth [facility] Work Phone: XR Cervical spine 4 [facility] Immunizations Immunization DateImmunizationNotesCare XnqtyyorPrsxakih30-52-0513ntutggfot, injectable, quadrivalent, preservative freeLisa Aichholz DIRECTOR FRAUD Work Phone: [facility] HospitalBjrvjnlgxd78-21-7735Agsjvlfmuojc Conjugate PCV 20 Carmela Lester DIRECTOR FRAUD Work Phone: [facility] HospitalSjwhuoisbk89-31-0745gbdhlegxn virus vaccine, unspecified formulationLisa Aichholz DIRECTOR FRAUD Work Phone: [facility] HospitalUecwzwockl80-39-0091rsyxwsysk, injectable, quadrivalent, preservative freeLisa Aichholz DIRECTOR FRAUD Work Phone: [facility] HospitalRdkbzfygzk77-98-2378kvtaflvoe, injectable, quadrivalent, preservative freeLisa Aichholz DIRECTOR FRAUD Work Phone: [facility] HospitalQlqufrfxvi81-80-2112uzmllkmqu, injectable, quadrivalent, preservative freeLisa Aichholz DIRECTOR FRAUD Work Phone: [facility] HospitalVyhoegkusj19-47-8245fgwtmqadm, injectable, quadrivalent, preservative freeLisa Aichholz DIRECTOR FRAUD Work Phone: [facility] HospitalJmbaglfumg06-30-5303ngkajbppmzcp polysaccharide vaccine, 23 valentLisa Aichholz DIRECTOR FRAUD Work Phone: [facility] HospitalMgvsqglobb64-62-1986uvixehuqy, injectable, quadrivalent, preservative freeLisa Aichholz DIRECTOR FRAUD Work Phone: [facility] Payers DatePayer CategoryPayerPolicy [id number] Health InsuranceMEDICAL MUTUAL Member Subscriber Plan / Payer (Effective 2022- Present) Name: Diane Mendoza Relation to Subscriber: Spouse Name: JOSE MARIA MENDOZA Date of : 1960 Address: [facility] [address] [place] [address] Payer ID: Not on file [facility] ID: [id number] Type: Not on file Address: [facility] [address] [place] [id number] [id number] 2.0.1.030351.3.57[id number] 2.0.1.683784.3.57[id number] 2.0.1.800224.3.579.[id number] 2.0.1.898302.3.57[id number] 2..840.1.399818.3.57[id number] 2..840.1.450242.3.57[id number] 2..840.1.281876.3.57[id number] 2..840.1.632776.3.57[id number] 2..840.1.216584.3.57[id number] 2..840.1.663363.3.57[id number] 2.0.1.978754.3.57[id number] 2.840.1.300618.3.57[id number] 2..840.1.472[id number] 2.840.1.210301.3.579.2.531 [id number] 2.840.1.9[id number] 2.840.1.065021.3.579.2.531 Social History DateTypeDetailFacilityTobacc smoking status NHISUnknown if ever smokedMetrohealth Parma Medical Center Work Phone: Start: 01-46-7787Tqx Assigned At BirthBrecksville VA / Crille HospitalTobacc smoking status NHISUnknown if ever smoked [facility] Work Phone: Start: 31-85-5157HyfAxfomoc sex unknown (finding) [facility] Systemtart: 37-16-3407Ugzgiqn smoking status NHIS Smokes tobacco dailyNOMS HealthcareHistory of tobacco useCigarette SmokerNOMS HealthcareStart: 02-07-2023 End: 55-07-2340Drehcypooi smoked current (pack per day) - Solaaqww6AIYI HealthcareStart: 09-07-2023 End: 68-33-3911Cpkzomliv beverage intakeLifetime non-drinker (finding)[facility] HealthcareStart: 05-10-2023 End: 37-01-0732Bvritvi use panelNOMS HealthcareStart: 35-72-9447Mln assigned at birthNot on fileNOMS HealthcareStart: 33-71-1598Pzbyzbr smoking status NHIS Ex-smokerNOMS HealthcareHistory of tobacco useCurrent smokerNOMS Healthcare Start: 32-24-2415Piqttvz use and exposureSmokeless tobacco non-userNOMS HealthcareSexFemale (finding)[facility] Clinical Notes 06-08-2023 to 09-11-2024 Note Date & NzqzAfqfUiteejrh06-77-1912 History of Present illness Narrative* Carmela Lester NP - 09/11/2024 2:59 PM EDTAssociated Problem(s): Bilateral hand pain Bilat hand xray Consider ortho, ?? Dequervains tenosynovitis * Carmela Lester NP - 09/11/2024 2:20 PM EDT Images from the original note were not included. Diane Mendoza is a 54 y.o. female presents with [...] symptoms include neck pain. Pertinent negatives include nochest pain, headaches, orthopnea, palpitations, peripheral edema or shortness of breath. There are no associated agents to hypertension. Risk factors for coronary artery disease include dyslipidemia.Past treatments include beta blockers, calcium channel blockers and ALEE inhibitors. The current treatment provides significant improvement. There are no compliance problems. Hypertensive end-organ damage includes CAD/CO. There is no history of PVD. SUBJECTIVE: [...] pain. Negative for back pain, joint swelling andmyalgias. Skin: Negative for rash and wound. Neurological: [...] b jose, alee, and imdur , verapamil Relevant Medications isosorbide [...] disease) - Primary Current meds: statin, zetia, alee, imdur, b jose , verapamil, and prn nitroglycerin Relevant Medications [...] of the risks of continued smoking: stroke, CO, all forms of cancer, lung disease, and . Options for quitting smoking include: cold turkey, hypnosis, acupuncture, nicotine replacement meds(gum, lozenges, and patches), Buproprion, and Varenicline. At this time pt is encouraged to evaluate their goals for wanting to quit smoking, and reach out toprovider when ready to start this process Breast cancer screening declined Other Visit Diagnoses Essential hypertension Relevant Medications isosorbide mononitrate ER (Imdur) 120 MG 24 hr tablet lisinopril 20 MG tablet metoprolol tartrate (Lopressor) 100 MG tablet metoprolol tartrate (Lopressor) 25 MG tablet verapamil (Calan) 80 MG tablet * Carmela Lestre NP - 09/11/2024 7:24 AM EDTAssociated Problem(s): Hyperlipidemia On statin and zetia Check labs yearly and prn dose changes * Carmela Lester NP - 09/11/2024 7:24 AM EDTAssociated Problem(s): Cigarette nicotine dependence without complication The patient has been advised of the risks of continued smoking: stroke, CO, all forms of cancer, lung disease, and . Options for quitting smoking include: cold turkey, hypnosis, acupuncture, nicotine replacement meds(gum, lozenges, and patches), Buproprion, and Varenicline. At this time pt is encouraged to evaluate their goals for wanting to quit smoking, and reach out toprovider when ready to start this process * Carmela Lester NP - 09/11/2024 7:23 AM EDTAssociated Problem(s): Hypothyroidism (acquired) Current med: levothyroxine Check labs yearly and prn dose change or change in sxs * Carmela Lester NP - 09/11/2024 7:22 AM EDTAssociated Problem(s): Hypertension Please check blood pressure daily and record DASH diet Limit caffeine Take medication as directed Contact office if chest pain, pressure, dizziness, shortness of breath, swelling legs Recommend slow position changes Current meds: b jose, alee, and imdur , verapamil * Carmela Lester NP - 09/11/2024 7:21 AM EDTAssociated Problem(s): CAD (coronary artery disease) Current meds: statin, zetia, alee, imdur, b jose , verapamil, and prn nitroglycerin * Carmela Lester NP - 09/11/2024 7:21 AM EDTAssociated Problem(s): ERICK (obstructive sleep apnea) You have [...] that manages your ERICK: documented in this encounterRipley County Memorial HospitalWkeqxouyyy71-12-5455 Instructions* Patient Instructions* Carmela Lester NP - 09/11/2024 2:20 PM EDT Check xrays of the hands Add baby aspirin 81mg daily documented in this encounterRipley County Memorial HospitalIwjfumjlpn18-93-7695 Telephone encounter Note* Telephone Encounter - Carmela Lester NP - 08/20/2024 11:19 AM EDT Please contact the patient, I just sent [...] order please getting this completed CICI [place] [facility] HospitalZuzmgzavdi67-75-4552 Miscellaneous Notes* Telephone Encounter - Carmela Lester NP - 08/20/2024 11:19 AM EDT Please contact the patient, I just sent [...] this completed CICI LA documented in this encounterRipley County Memorial HospitalVikuwykpro40-56-9915 [facility]BEL[facility]UE [facility] Note Chief Complaint: Patient here for 1 year follow up CAD, hypertension, dyslipidemia, and Prinzmetal angina. No recent labs or imaging. She is not taking aspirin. Chest pain and SOB has resolved. HPI: Diane Mendoza is a 54 y.o. female who I [...] management; add calc (more content not included)... [facility]01-27-2025 History of Present illness Narrative* OLIMPIA Harrison - 04/09/2024 4:00 PM EST Images from the original note were not included. Reason for Appointment: EMG Patient: Diane Mendoza : 1970 EMG Computer: Omnireliant Referring Physician: Dr. Den Chávez EMG: BLE soa engineer: Walker Nicole RT(R) Office Location: [place] Reason for EMG: c/o numbness/tingling in bilateral feet/lower legs, low back pain that radiates down bilateral legs L>R. Hx of surgery to left ankle. No hx of DM. Taking ASA. Comments: Procedure was explained to the patient who expressed understanding. Patient appeared to have tolerated the test well despite some discomfort due to the nature of the test. documented in this encounterRipley County Memorial HospitalIuqiiugvsp28-58-9019 History of Present illness Narrative* Den Chávez DO - 03/26/2024 4:00 PM EST Images from the original note were not included. Chief Complaint Patient presents with Numbness Tingling Subjective Diane Mendoza, 54 y.o., female HPI Paresthesia of skin [place] [facility] [place], MRI brain [...] her arms. She has had neck pain foryears. She has numbness down her right arm. She has weakness in her hands and is dropping things. This is greater on the right. Her right hand is always cold. She has constant numbness bilat feet forthe the last 4 years. She states that her feet feel hot at night but are cold to the touch. She is taking gabapentin but it has not helped with her symptoms. She had EMG here and [place] [facility] [place] Borderline right CTS. She had the EMG 2020 BLE She is on the neurontin 900mb bid Past Medical History: Diagnosis Date Abnormal ankle brachial index (LYSSA) 05/10/2023 Asymptomatic microscopic hematuria 05/10/2023 Back pain, chronic 05/10/2023 Bilateral hand pain 05/10/2023 Bronchitis 02/07/2023 CAD (coronary artery disease) ([facility]) 05/10/2023 Closed traumatic minimally displaced fracture of proximal end of fibula with routine healing 05/10/2023 Fatigue GERD (gastroesophageal reflux disease) 05/10/2023 Gout 05/09/2023 History of irregular menstrual cycles Hyperlipidemia ([facility]) Joint pain Left ankle pain Loud snoring 05/10/2023 Lumbosacral radiculopathy at S1 05/10/2023 Menorrhagia 05/10/2023 Myocardial infarction ([facility]) 05/10/2023 Neuropathy 05/10/2023 Paresthesia of foot Peripheral artery disease ([facility]) 05/10/2023 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[facility]) 05/10/2023 Seasonal allergies 05/10/2023 Tobacco [...] September most recently [place] [facility] that was not entirely convincing for any entrapment neuropathy or neuropathic process but may have a subclinical right carpal tunnel syndrome. The 1st MRI was done by Dr. Dunlap the 2nd was done by Dr. Naylor. Patient does have an MRI of her cervical spine that shows somesignificant degenerative disc disease with crowding at multiple levels but no true cord compression. I agree with the neurosurgeon that this is likely not causing her symptoms. MRI of the brain was ordered that did show nonspecific white matter changes. I am not convinced that this is demyelinatingin nature. I would expect her to not [...] an EMG of the bilateral lower extremity toassess for advancing neuropathy. If that does not appear to be much worse would recommend a skin biopsy for small fiber neuropathy. Certainly her cervical spine should be monitored over time for any w orsening. Plan EMG were reviewed with her I will order an electromyograph evaluation of the lower extremities to assess for nerve damage suchas lumbar radiculopathy, lumbar plexopathy, or peripheral neuropathy. [...] rheumatologic issues such as RA or connective tissuesdz. We will decide in the next step [...] to clinic: 3 weeks documented in this encounterRipley County Memorial HospitalBochnhgoih10-08-5778 Telephone encounter Note* Telephone Encounter - Carmela Lester NP - 02/07/2024 8:35 PM EST Please call and schedule a fu appt for pt [place] [facility] [id number] Miscellaneous Notes* Telephone Encounter - Carmela Lester NP - 02/07/2024 8:35 PM EST Please call and schedule a fu appt for pt [place] documented in this encounterRipley County Memorial HospitalNsiohbzojj65-20-5504 Evaluation note* Diagnosis Onset Date Resolution Status Admit Date Arm pain acuteSept2023 12:52pmCervical radiculopathyacuteSept2023 12:52pmNeck painacuteSept2023 12:52pmCervical radiculopathyacute December 26, 2023 9:58amUlnar neuropathy at elbowacuteNov2023 10:50am [facility] Work Phone: 1(501) 351-987103-27-2024 NoteBELLEV [facility]IC Cardiology [facility] Note Chief Complaint: New patient here to re-establish care. She was last seen in Mar 2017. Had echo 2 weeks ago, and routine labs in Feb 2023. She quit smoking 03/14/2023! C/o intermittent chest pain, SOB, and fatigue. HPI: Diane Mendoza is a 53 y.o. female who I [...] he is to underg (more content not included)...[facility] Evaluation noteNo assessment information availableMetrohealth Parma Medical Center Work Phone: Evaluation note* Diagnosis Onset Date Resolution Status Arm pain acuteCervical radiculopathyacuteUlnar neuropathy at elbowacuteArm painacuteNeck painacuteUlnar neuropathy at elbowacute [facility] Work Phone: Evaluation note* Diagnosis Onset Date Resolution Status Arm pain acuteCervical radiculopathyacuteUlnar neuropathy at elbowacuteArm painacuteNeck painacuteUlnar neuropathy at elbowacuteArm painacuteCervical radiculopathyacute Neck painacuteCervical radiculopathyacute [facility] Work Phone: Evaluation note* Diagnosis Onset Date Resolution Status Arm pain acuteNeck painacuteUlnar neuropathy at elbowacuteArm painacuteCervical radiculopathyacuteNeck painacuteCervical radiculopathyate [facility] Work Phone: Evaluation note* Diagnosis 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 (CMS/HCC) documented in this encounter [facility] HealthcareEvaluation note* Diagnosis Colon cancer screening- Primary Special screening for malignant neoplasms, colon Atherosclerosis of modoc coronary artery without angina pectoris, unspecified whether modoc or transplanted heart (CMS/HCC) Essential hypertension (CMS/HCC) Unspecified essential hypertension Hypothyroidism (acquired) (CMS/HCC) Unspecified hypothyroidism Idiopathic gout, unspecified chronicity, unspecified site Bronchitis Bronchitis, not specified as acute or chronic Essential hypertension (CMS/HCC)- Primary Unspecified essential hypertension 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 (CMS/HCC) Trapezius muscle spasm Tobacco user Tobacco use disorder Essential hypertension (CMS/HCC)- Primary Unspecified essential hypertension 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 (CMS/HCC) Trapezius muscle spasm Tobacco user Tobacco use disorder Cervical neck pain with evidence of disc disease- Primary Other and unspecified disc disorder of cervical region Trapezius muscle spasm Tobacco user Tobacco use disorder Cervical stenosis of spinal canal- Primary Spinal stenosis in cervical region Cervical radiculopathy Brachial neuritis or radiculitis nos 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 (CMS/HCC) documented in this encounter [facility] HealthcareEvaluation note* Diagnosis 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 (CMS/HCC) Neuropathy Mononeuritis of unspecified site Essential hypertension (CMS/HCC) Unspecified essential hypertension Hypothyroidism (acquired) (CMS/HCC) Unspecified hypothyroidism Primary hypertension (CMS/HCC) Unspecified essential hypertension Trapezius muscle spasm documented in this encounter [facility] Healthcare[facility]* Diagnosis Colon cancer screening- Primary Special screening for malignant neoplasms, colon Atherosclerosis of modoc coronary artery without angina pectoris, unspecified whether modoc or transplanted heart (CMS/HCC) Essential hypertension (CMS/HCC) Unspecified essential hypertension Hypothyroidism (acquired) (CMS/HCC) Unspecified hypothyroidism Idiopathic gout, unspecified chronicity, unspecified site Bronchitis Bronchitis, not specified as acute or chronic Essential hypertension (CMS/HCC)- Primary Unspecified essential hypertension 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 (CMS/HCC) Trapezius muscle spasm Tobacco user Tobacco use disorder Essential hypertension (CMS/HCC)- Primary Unspecified essential hypertension 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 (CMS/HCC) Trapezius muscle [...] screening for malignant neoplasms, colon Atherosclerosis of modoc coronary artery without angina pectoris, unspecified whether modoc or transplanted heart (CMS/HCC) Essential hypertension (CMS/HCC) Unspecified essential hypertension Hypothyroidism (acquired) (CMS/[facility]) Unspecified hypothyroidism Idiopathic gout, unspecified chronicity, unspecified site Bronchitis Bronchitis, not specified as acute or chronic Essential hypertension (CMS/HCC)- Primary Unspecified essential hypertension 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 (CMS/HCC) Trapezius muscle spasm Tobacco user Tobacco use disorder Essential hypertension (CMS/HCC)- Primary Unspecified essential hypertension 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 (CMS/HCC) Trapezius muscle [...] screening for malignant neoplasms, colon Atherosclerosis of modoc coronary artery without angina pectoris, unspecified whether modoc or transplanted heart (CMS/HCC) Essential hypertension (CMS/HCC) Unspecified essential hypertension Hypothyroidism (acquired) ([facility]) Unspecified hypothyroidism Idiopathic gout, unspecified chronicity, unspecified site Bronchitis Bronchitis, not specified as acute or chronic Essential hypertension (CMS/HCC)- Primary Unspecified essential hypertension 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 (CMS/HCC) Trapezius muscle spasm Tobacco user Tobacco use disorder Essential hypertension (CMS/HCC)- Primary Unspecified essential hypertension 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 (CMS/HCC) Trapezius muscle [...] screening for malignant neoplasms, colon Atherosclerosis of modoc coronary artery without angina pectoris, unspecified whether modoc or transplanted heart (CMS/HCC) Essential hypertension (CMS/HCC) Unspecified essential hypertension Hypothyroidism (acquired) (CMS/HCC) Unspecified hypothyroidism Idiopathic gout, unspecified chronicity, unspecified site Bronchitis Bronchitis, not specified as acute or chronic Essential hypertension (CMS/HCC)- Primary Unspecified essential hypertension 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 (CMS/HCC) Trapezius muscle spasm Tobacco user Tobacco use disorder Essential hypertension (CMS/HCC)- Primary Unspecified essential hypertension 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 (CMS/HCC) Trapezius muscle [...] Unspecified essential hypertension 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 (CMS/HCC) Hypothyroidism (acquired) ([facility]) Unspecified hypothyroidism documented in this encounter [facility] HealthcareEvaluation note* Diagnosis Colon cancer screening- Primary Special screening for malignant neoplasms, colon Atherosclerosis of modoc coronary artery without angina pectoris, unspecified whether modoc or transplanted heart Essential hypertension Unspecified essential hypertension Hypothyroidism (acquired) Unspecified hypothyroidism Idiopathic gout, unspecified chronicity, unspecified site Bronchitis Bronchitis, not specified as acute or chronic Essential hypertension- Primary Unspecified essential hypertension 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 Trapezius muscle spasm Tobacco user Tobacco use disorder Essential hypertension- Primary Unspecified essential hypertension 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 Trapezius muscle spasm [...] Unspecified essential hypertension 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 Hypothyroidism (acquired) Unspecified hypothyroidism Cigarette nicotine dependence without complication Mixed hyperlipidemia Mixed hyperlipidemia Essential hypertension Unspecified essential hypertension Trapezius muscle spasm Bilateral hand pain Breast cancer screening declined documented in this encounter [facility]* Diagnosis Colon cancer screening- Primary Special screening for malignant neoplasms, colon Atherosclerosis of modoc coronary artery without angina pectoris, unspecified whether modoc or transplanted heart Essential hypertension Unspecified essential hypertension Hypothyroidism (acquired) Unspecified hypothyroidism Idiopathic gout, unspecified chronicity, unspecified site Bronchitis Bronchitis, not specified as acute or chronic Essential hypertension- Primary Unspecified essential hypertension 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 Trapezius muscle spasm Tobacco user Tobacco use disorder Essential hypertension- Primary Unspecified essential hypertension 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 Trapezius muscle spasm [...] Unspecified essential hypertension 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 Hypothyroidism (acquired) Unspecified hypothyroidism Cigarette nicotine dependence without complication Mixed hyperlipidemia Mixed hyperlipidemia Essential hypertension Unspecified essential hypertension Trapezius muscle spasm Bilateral hand pain Breast cancer screening declined Bilateral hand pain- Primary documented in this encounter [facility]* Diagnosis Colon cancer screening- Primary Special screening for malignant neoplasms, colon Atherosclerosis of modoc coronary artery without angina pectoris, unspecified whether modoc or transplanted heart Essential hypertension Unspecified essential hypertension Hypothyroidism (acquired) Unspecified hypothyroidism Idiopathic gout, unspecified chronicity, unspecified site Bronchitis Bronchitis, not specified as acute or chronic Essential hypertension- Primary Unspecified essential hypertension 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 Trapezius muscle spasm Tobacco user Tobacco use disorder Essential hypertension- Primary Unspecified essential hypertension 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 Trapezius muscle spasm [...] Unspecified essential hypertension 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 Hypothyroidism (acquired) Unspecified hypothyroidism Cigarette nicotine dependence without complication Mixed hyperlipidemia Mixed hyperlipidemia Essential hypertension Unspecified essential hypertension Trapezius muscle spasm Bilateral hand pain Breast cancer screening declined Bilateral hand pain documented in this encounter [facility]* Diagnosis Onset Date Resolution Status Admit Date Cigarette nicotine dependence without co mplication acuteOctober 2024 1:48pmCoronary atherosclerosis due to calcified coronary lesionacuteOctober 2024 1:48pmHTN (hypertension)acuteOctober 2024 1:48pmHyperlipidemiaacuteOctober 2024 1:48pmHypothyroidism (acquired)acute December 12, 2024 1:48pm [facility] Work Phone: Hospital Discharge instructionsAmbulatory Orders* Referral to Pain Management Location: None Selected [facility] Work Phone: Reason for referral (narrative)No reason for referral information availableMetrohealth [facility] Work Phone: Summary Purpose Family History [...] cervi daniel region M54.2 follow up cervical painReason for VisitArm pain Cervical radiculopathy Ulnar neuropathy at elbow Arm pain Neck pain Ulnar neuropathy at elbow Chief Complaint Radiculopathy, cervi daniel region M54.2 follow up cervical pain follow up after pain managementReason for VisitArm pain Cervical radiculopathy Ulnar neuropathy at elbow Arm pain Neck pain Ulnar neuropathy at elbow Chief Complaint Radiculopathy, cervi daniel region M54.2 follow up cervical pain follow up after pain management refer back from pm worsening neurological deficitsReason for VisitArm pain Cervical radiculopathy Ulnar neuropathy at elbow Arm pain Neck pain Ulnar neuropathy at elbow Arm pain Cervical radiculopathy Neck pain Cervical radiculopathy Chief Complaint M54.2 follow up cervical pain follow up after pain management refer back from pm worsening neurological deficits M54.12Reason for VisitArm pain Neck pain Ulnar neuropathy at elbow [...] 01, 2023 12:52pm Cervical radiculopathy November 30, 024 12:52pm Neck pain December 01, 2023 12:52pm Cervical radiculopathy December 25 9:58am Ulnar neuropathy at elbow January 16, 2024 10:50am Chief Complaint Admit Date 3M December 12, 2024 1: 48pm Reason for Visit Admit Date Cigarette nicotine dependence without co mplication December 12, 2024 1:48pm Coronary atherosclerosis due to calcifie d coronary lesion December 12, 2024 1:48pm HTN (hypertension) December 12, 2024 1: 48pm Hyperlipidemia December 12, 2024 1: 48pm Hypothyroidism (acquired) December 12 025 1:48pm Additional Source Comments INFORMATION SOURCE (unrecogn ized section and content) DATE CREATED AUTHOR 07/25/2022 [facility] DATE CREATED AUTHOR AUTHOR'S ORGANIZ ATION 03/06/2024 [facility] DATE CREATED AUTHOR AUTHOR'S ORGANIZ ATION 06/05/2024 [facility] DATE CREATED AUTHOR AUTHOR'S ORGANIZ ATION 07/22/2024 [facility] DATE CREATED AUTHOR AUTHOR'S ORGANIZ ATION 09/13/2024 [facility] EPIC Care Teams (unrecognized sec tion and content) Team Status: Active Member Role Status Dates Carmela Lester Primary Care Provider Active Team Status: Inactive Member Role Status Dates Carmela Lester Primary Care Provider Active Sta rt: October 06, 2023 End: October 06, 2023Elena Mitchellmanda , APRNAttending ProviderActiveStart: October 06, 2023 End: October 06, 2023 Team Status: Active Member Role Status Dates Carmela Karlene Cartagenajaneinocencio Primary Care Provider Active Sta rt: October 27, 2023 Lolydanika Galeasana , APRNAttending ProviderActiveStart: October 27, 2023 Team Status: Inactive Member Role Status Dates Carmela Karlene Cartagenajaneinocencio Primary Care Provider Active Sta rt: October 27, 2023 End: October 27, 2023Elenazalia Comer , APRNAttending ProviderActiveStart: October 27, 2023 End: October 27, 2023 Team Status: Inactive Member Role Status Dates Carmela Karlene Cartagenajaneinocencio Primary Care Provider Active Sta rt: December 01, 2023 End: December 01, 2023Elenazalia Comer , APRNAttending ProviderActiveStart: December 01, 2023 End: December 01, 2023 Team Status: Inactive Member Role Status Dates Carmela Karlene Cartagenajaneinocencio Primary Care Provider Active Sta rt: December 26, 2023 End: December 26, 2023Eric N Bial[place]i , DOAttending ProviderActiveStart: December 26, 2023 End: December 26, 2023 Team Status: Inactive Member Role Status Dates Carmela Karlene Cartagenajaneinocencio Primary Care Provider Active Sta rt: January 13, 2024 End: January 13, 2024Eric N Bial[place]i , DOAttending ProviderActiveStart: January 13, 2024 End: January 13, 2024 Team Status: Inactive Member Role Status Dates Carmela Karlene Cartagenajaneinocencio Primary Care Provider Active Sta rt: January 16, 2024 End: January 16, 2024Eric N Bial[place]i , DOAttending ProviderActiveStart: January 16, 2024 End: January 16, 2024 Team Status: Inactive Member Role Status Dates Carmela Karlene Lester Primary Care Provider Active Sta rt: February 01, 2024 End: February 01, 2024Eric N Bial[place]i , DOAttending ProviderActiveStart: February 01, 2024 End: February 01, 2024Team MemberRelationshipSpecialtyStart DateEnd Date Parviz Stewart MD [address] [place] [address] [facility]10[facility]23 Carmela Lester NP [address] [place] [address] Referring PhysicianNurse Practitioner10/04/22 Carmela Lester NP [address] [place] [address] [facility]05/10/23Team MemberRelationshipSpecialtyStart DateEnd Date Parviz Stewart MD [address] [place] [address] PCP - [facility] Medicine05/10/23 Carmela Lester NP [address] [place] [address] Referring PhysicianNurse Practitioner10/04/22 Carmela Lester NP [address] [place] [address] [facility]05/10/23Team MemberRelationshipSpecialtyStart DateEnd Date Parviz Stewart MD [address] [place] [address] PCP - [facility] Medicine05/10/23 Carmela Lester NP [address] [place] [address] Referring PhysicianNurse Practitioner10/04/22 Carmela Lester NP [address] [place] [address] Nurse PractitionerFagaly Medicine05/10/23Team MemberRelationshipSpecialtyStart DateEnd Date Parviz Stewart MD [address] [place] [address] PCP - GeneralFamily Medicine05/10/23 Carmela Lester NP [address] [place] [address] Referring PhysicianNurse Practitioner10/04/22 Carmela Lester NP [address] [place] [address] [facility]05/10/23Team MemberRelationshipSpecialtyStart DateEnd Date Parviz Stewart MD [address] [place] [address] PCP - Generalmily Medicine05/10/23 Carmela Lester NP [address] [place] [address] Referring PhysicianNurse Practitioner10/04/22 Carmela Lester NP [address] [place] [address] [facility]Mer[facility]05/10/23Team MemberRelationshipSpecialtyStart DateEnd Date Parviz Stewart MD [address] [place] [address] PCP - GeneralFamily Medicine05/10/23 Carmela Lester NP [address] [place] [address] Referring PhysicianNurse Practitioner10/04/22 Carmela Lester NP [address] [place] [address] Nurse PractitionerFagaly Medicine05/10/23Team MemberRelationshipSpecialtyStart DateEnd Date Parviz Stewart MD [address] [place] [address] PCP - GeneralFamily Medicine05/10/23 Carmela Lester NP [address] [place] [address] Referring PhysicianNurse Practitioner10/04/22 Carmela Lester NP [address] [place] [address] Nurse PractitionerFamily Medicine05/10/23 Den Chávez DO [address] [place] [address] Referring PhysicianNeurolog03/27/24 Jessica Venegas NP [address] [place] Nurse PractitionerNeurology1/Team MemberRelationshipSpecialtyStart DateEnd Date Parviz Stewart MD [address] [place] [address] PCP - GeneralFamily Medicine05/10/23 Carmela Lester, EMMANUEL [address] [place] [address] Referring PhysicianNurse Practitioner10/04/22 Carmela Lester NP [address] [place] [address] Nurse PractitionerFamily Medicine05/10/23 Den Chávez DO [address] [place] [address] Referring PhysicianNeurology1 Jessica Venegas NP [address] [place], [place] Nurse PractitionerNeurology1Team MemberRelationshipSpecialtyStart DateEnd Date Parviz Stewart MD [address] [place] [address] PCP - GeneralFamily Medicine05/10/23 Carmela Lester NP [address] [place] [address] Referring PhysicianNurse Practitioner10/04/22 Carmela Lester NP [address] [place] [address] Nurse PractitionerMer[facility] Centerly Medicine05/10/23 Den Chávez DO [address] [place] [address] Referring PhysicianNeurolog03/27/24 Jessica Venegas NP [address] [place] [address] Nurse PractitionerNeurolog03/27/24Team MemberRelationshipSpecialtyStart DateEnd Date Parviz Stewart MD [address] [place] [address] [facility]05/10/23 Carmela Lester NP [address] [place] [address] Referring PhysicianNurse Practitioner10/04/22 Carmela Lester NP [address] [place] [address] [facility]05/10/23 Den Chávez DO [address] [place] [address] Referring PhysicianNeurolog03/27/24 Jessica Venegas NP [address] [place] [address] Nurse PractitionerNeurolog03/27/24Team MemberRelationshipSpecialtyStart DateEnd Date Parviz Stewart MD [address] [place] [address] PCP - GeneralMer[facility] Centerly [facility]05/10/23 Carmela Lester, EMMANUEL [address] [place] [address] Referring PhysicianNurse Practitioner10/04/22 Carmela Lester NP [address] [place] [address] Nurse PractitionerFagaly Medicine05/10/23 Den Chávez DO [address] [place], [place] [address] Referring PhysicianNeurolog03/27/24 Jessica Venegas NP [address] [place] [address] Nurse PractitionerNeurology1Team MemberRelationshipSpecialtyStart DateEnd Date Parviz Stewart MD [address] [place] [address] [facility] - [facility]05/10/23 Carmela Lester NP [address] [place] [address] Referring PhysicianNurse Practitioner10/04/22 Carmela Lester NP [address] [place] [address] Nurse Pract[facility]erFamiravista [facility] Medicine05/10/23 Den Chávez DO [address] [place], [place] [address] Referring PhysicianNeurolog03/27/24 Jessica Venegas, EMMANUEL [address] [place] [address] Nurse PractitionerNeurology1Team MemberRelationshipSpecialtyStart DateEnd Date Parviz Stewart MD [address] [place] [address] [facility]05/10/23 Carmela Lester NP [address] [place] [address] Referring PhysicianNurse Practitioner10/04/22 Carmela Lester NP [address] [place] [address] [facility]05/10/23 Den Chávez DO [address] [place] [address] Referring PhysicianNeurolog03/27/24 Jessica Venegas NP [address] [place] [address] Nurse PractitionerNeurology1Team MemberRelationshipSpecialtyStart DateEnd Date Parviz Stewart MD [address] [place] [address] [facility]05/10/23 Carmela Lester NP [address] [place] [address] Referring PhysicianNurse Practitioner10/04/22 Carmela Lester NP [address] [place] [address] Nurse PractitionerMercyone [facility] Centerly Medicine05/10/23 Den Chávez DO [address] [place] [address] Referring PhysicianNeurolog03/27/24 Jessica Venegas NP [address] [place] [address] Nurse PractitionerNeurolog03/27/24Team MemberRelationshipSpecialtyStart DateEnd Date Parviz Stewart MD [address] [place] [address] [facility]05/10/23 Carmela Lester NP [address] [place] [address] Referring PhysicianNurse Practitioner10/04/22 Carmela Lester NP [address] [place] [address] [facility]05/10/23 Den Chávez DO [address] [place] [address] Referring PhysicianNeurolog03/27/24 Jessica Venegas NP [address] [place] [address] Nurse PractitionerNeurolog03/27/24 Team Status: Active Member Role Status Dates RAFITA Vega Primary Care Provider Active Team Status: Inactive Member Role Status Dates RAFITA Vega Primary Care Provider Active Start: December 12, 2024 End: December 12, 2024Chelsey Vega ProviderActiveStart: December 12, 2024 End: December 12, 2024 Goals (unrecognized section and content) Goals may [...] for Visit (unrecogniz ed section and content) ReasonCommentsMed Change RequestReasonCommentsMed RefillReasonCommentsNumbness TinglingSpecialtyDiagnoses / ProceduresReferred By ContactReferred To Contact Neurology Diagnoses Paresthesia of skin Procedures [place] OFFICE/OUTPATIENT NEW LOW [facility] Milton Appiah MD Phone: tel: fax: Addy Lynn MD [address] [place] [address] Phone: tel: fax: Referral IDStatusReasonStart DateExpiration DateVisits RequestedVisits [id number] Consult and Treat /[id number]ce FOR RECORDS PERTAINING TO PATIENTS WHO ARE [...] BE BASED ON THE PRIMARY CLINICAL RECORDS. [employer] [facility]. provides no warranty or guarantee of the accuracy or completeness of information in this document.
--- NOTE | 2025-01-02 13:33 | PM.CN ---
Consult Note: HPI Data of Consult Patient: known to practice within the last 3 years Consult date: 01/02/25 Requesting Physician: Jaz Haley NP Primary Care Provider: Carmela Lester NP Consult Narrative Reason for consult: neck, hands, bilateral feet pain Narrative: 54yof who presents for evaluation. since last visit pt has had improvement in neck pain, continues to endorse moderate hand and foot pain. neck is mild soreness. since last visit we started her on duloxetine 30mg BID as tolerated, she has been able to take 30mg HS with benefit however she cannot take during the day due to drowsiness. pt has a hx of HTN and is concerned today with BP of 177/97. denies chest pain, headache, nausea, shortness of breath, vision changes. has been following with PCP for HTN. Since last visit she did not discuss her diffuse joint pain or further workup for underlying rheumatologic condition with her pcp. cc:: CC: Jaz Haley NP Review of Systems ROS Musculoskeletal Reports: neck pain and joint pain PFSH PFS Medical History (Updated 10/10/24 @ 13:55 by Jaz Haley NP) HTN (hypertension) ?I10 - Essential (primary) hypertension (ICD-10) Myocardial infarction ?I21.9 - Acute myocardial infarction, unspecified (ICD-10) Surgical History History of ankle surgery ?Z98.890 - Other specified postprocedural states (ICD-10) History of heart bypass surgery ?Z95.1 - Presence of aortocoronary bypass graft (ICD-10) Meds Home Medications and Allergies Home Medications ?Medication ?Instructions ?Recorded ?Confirmed ?Type aspirin 81 mg capsule 81 mg PO DAILY 10/31/23 07/09/24 History atorvastatin 80 mg tablet 80 mg PO DAILY 10/31/23 07/09/24 History ezetimibe 10 mg tablet 10 mg PO DAILY 10/31/23 07/09/24 History isosorbide mononitrate 120 mg 120 mg PO DAILY 10/31/23 07/09/24 History tablet,extended release 24 hr levothyroxine 75 mcg capsule 75 mcg PO DAILY 10/31/23 07/09/24 History lisinopril 20 mg tablet 20 mg PO BID 10/31/23 07/09/24 History metoprolol tartrate 100 mg tablet 125 mg PO BID 10/31/23 07/09/24 History (Lopressor) verapamil 80 mg tablet 80 mg PO TID 10/31/23 07/09/24 History gabapentin 300 mg capsule 900 mg (3 x 300 mg) PO BID #180 06/21/24 07/09/24 Rx caps gabapentin 300 mg capsule See Rx Instructions .Route 08/01/24 Rx .COMPLEX #180 caps gabapentin 300 mg capsule See Rx Instructions .Route 09/05/24 Rx .COMPLEX #180 caps duloxetine 30 mg capsule,delayed 30 mg PO BID #60 caps 11/21/24 Rx release Allergies Allergy/AdvReac Type Severity Reaction Status Date / Time adhesive Allergy Rash Verified 07/09/24 08:46 Exam Constitutional Documenting provider has reviewed patient's vital signs: yes Common normals: no apparent distress, oriented x3, healthy appearing, alert and well nourished General appearance: cooperative HENMT Common normals: normocephalic, hearing grossly normal bilaterally and moist oral mucous membranes Head and scalp: normocephalic Eye Common normals: PERRL Pupil: PERRL Neck & C-Spine Common normals: full ROM General: normal visual inspection Cervical spine: cervical ROM normal and normal cervical lordosis; no pain with cervical ROM and no cervical spine tenderness Other: strength 4/5 in RUE and 5/5 in LUE Chest Common normals: inspection of chest normal Respiratory Common normals: normal respiratory effort, no retractions and no use of accessory muscles Neuro Common normals: oriented x3 Sensorium/orientation: alert Psych Common normals: mental status grossly normal, thought process normal, cooperative, affect normal, speech normal and activity/motor behavior normal Speech: normal speech Thought process: normal thought process Results Additional Findings Additional findings: If on a controlled substance or opioids, I have checked an [place]AR[place] report on this patient and there are no aberrancies noted in the prescribing history.??If on a controlled substance or opioid a drug screen was completed and reviewed within the last year, and if there has not been a drug screen completed we ordered one today to monitor higher risk, state monitored pain medication use. As part of providing excellent, safe, comprehensive care, the following was completed at our patient's visit: 1. A medication reconciliation and review to ensure accurate knowledge of current/active medications, including asking our patients to inform us about any toaj-umc-pravxqi medications or herbal remedies/nutritional supplements/alternative remedies. 2. A review to specifically ensure our patients have had annual screening for screening for depression, screening for tobacco use, and screening for unhealthy alcohol use. For concerning screenings had a discussion with the patient, provided patient education, and recommended follow-up with primary care provider when appropriate. If patient noted with a risk of falling, they received education on strength, gait, and balance training to prevent future risk of falling. Portions of this note may have been carried over from the previous visit and updated as appropriate. Please note this office utilizes paper charting in addition to the electronic medical record. A list of current medications, vitals, and PMH is available there as the clinical staff outside of myself do not have access to [facility] charting during the clinic day operations. As part of providing quality comprehensive care the current medications, vitals, and PMH were reviewed in the paper chart. Assessment and Plan Assessment and Plan (1) Cervical spondylosis: Assessment and Plan: CLYDE 13% with moderate to severe pain impacting adls, sleep, social life, travel (2) Chronic pain syndrome: (3) Cervical stenosis of spinal canal: (4) Cervical radiculopathy: (5) Osteoarthritis: (6) Diffuse arthralgia: (7) HTN (hypertension): Plan change duloxetine 20mg bid for chronic pain syndrome and OA utilizing voltaren gel PRN advised to f/u with PCP regarding HTN, asymptomatic at this time. does have a personal hx of [place] f/u with pcp regarding diffuse joint pain and further workup for autoimmune disorders f/u 1 month to review medication regimen
== END 2025-01-02 13:00 | disposition home or self-care (01) ==
LOC: PM 12:59
PROVIDERS: PCP Nurse Practitioner; Visit Provider Nurse Practitioner
DX: M47.812 Spondylosis without myelopathy or radiculopathy, cervical region (principal); G89.4 Chronic pain syndrome; M48.02 Spinal stenosis, cervical region; M54.12 Radiculopathy, cervical region; M19.90 Unspecified osteoarthritis, unspecified site; M25.50 Pain in unspecified joint; I10 Essential (primary) hypertension
CPT/HCPCS: G0463

== ENCOUNTER 2025-01-17 09:01 | Outpatient (OUT) | payer OTHER, SELFPAY ==
--- OUTSIDE RECORDS SUMMARY | 2025-01-17 09:04 | XMS_ITS | Encounter Summary ---
Author Organization [facility] Address [address] [place] [address] Care Team Providers Care Fire Chief'S Aide Name Role Phone Carmela Lester NP Unavailable [phone] Parviz Stewart MD Primary Care Provider Carmela Lester NP Unavailable [phone] Nai Chávez DO Unavailable [phone] Jessica Venegas NP Unavailable [phone] Encounter Details DateTypeDepartmentCare Team (Latest Contact Info)Zcofzexsare99/15/2024Clinisync Result Encounter [facility] Unsolicited Carmela Lester NP [address] [place] [address] Social History Tobacco UseTypesPacks/DayYears UsedDateSmoking Tobacco: Every VfwQtbatfpwsz871 Alcohol UseStandard Drinks/WeekCommentsNever0 (1 standard drink = 0.6 oz pure alcohol)PHQ-2AnswerDate RecordedPatient Health Questionnaire-2 Mumim710 CommentsUnknownSex and Gender InformationValueDate RecordedSex Assigned at BirthNot on fileLegal BcgWcrobo92/15/2023 6:33 PM EDTGender IdentityNot on fileSexual OrientationNot on filedocumented as of this encounter Functional Status * Over the past 2 weeks, how often have you been bothered by any of the following problems?QuestionAnswerDate of AssessmentAuthorLittle interest or pleasure in doing thingsNot at all03/ 3:08 PM Noelle Haddad MA Feeling down, depressed, or hopelessNot at all05/30/2023 3:08 PM Noelle Haddad MAPatient Health Questionnaire-2 Fuigv601 3:08 PM EDT Noelle Dye MA documented as of this encounter Plan of Treatment Not on file documented as of this encounter Procedures Procedure NamePriorityDate/TimeAssociated DiagnosisCommentsCA ECHO DOPPLER RCJYRTOR07/15/2024 2:43 PM EDT documented in this encounter Results * CA ECHO DOPPLER COMPLETE (05/27/2023 2:43 PM EDT)Anatomical RegionLaterality ModalityOtherSpecimen (Source)Anatomical Location / LateralityCollection Method / VolumeCollection TimeReceived Time05/27/2023 2:43 PM EDT Narrative 05/27/2023 2:44 PM EDT [facility] ?[address] ? [place] [id number] ? Cardiology Report ? Signed ? Patient: DIANE CANAS ?MR#: [id number] ?? : 1970 ?Acct:[id number] ?? Age/Sex: 53 / F ?ADM Date: 05/26/23 ?? Loc: CARD ? Attending Dr: Carmela Lester NP ? Ordering Physician: Carmela Lester NP ?? Date of Service: 05/26/23 ?? Procedure(s): CA echo doppler complete ?? Accession Number(s): [id number] ? cc: Carmela Lester NP ? Patient Name: ? DIANE CANAS ? MR#: [id number] ? : 1970 ? Exam Date: 05/26/2023 ?? Ordering Doctor: DEREK Lester CNP ? ECHOCARDIOGRAM REPORT ? PROCEDURE: ? CA ECHO DOPPLER COMPLETE ? INDICATIONS: ? Uncontrolled hypertension, CABGx1, [place] x 2, former smoker ? COMPARISON: ? None. ? DESCRIPTION: ? COMPLETE ECHOCARDIOGRAM Real-time transthoracic ?? echocardiography with 2D, M-mode, spectral and color flow Doppler performed. ? QUALITY: ? 64 , 153#, BSA 1.75 m2, BP 172/90 ?? Technically difficult due to ?? poor acoustics. ?? LEFT VENTRICLE: ? Normal chamber size. Normal left ventricular wall ?? thickness. ? LV EF: ? Global left ventricular systolic function is normal; visually ?? estimated ejection fraction is 60 to 65%. ??Unable to assess regional wall ?? motion abnormalities; consider contrast study for better delineation of ?? endocardial borders. ?? DIASTOLIC: ? Normal diastolic function. ?? ATRIAL SEPTUM: ? Visually appears intact. ?? LEFT ATRIUM: ? Normal chamber size. ?? RIGHT ATRIUM: ? Normal chamber size. ?? RIGHT VENTRICLE: ? Poorly seen. ??Normal chamber size. Right ventricular ?? systolic function appears reduced. ? TRICUSPID VALVE: ? Normal mobility and thickness. No stenosis with trivial ?? regurgitation. ? MITRAL VALVE: ? Normal mobility and thickness. ?? No evidence of mitral valve ?? stenosis. ??There is no mitral annular calcification. No mitral regurgitation. ? AORTIC VALVE: ? Normal trileaflet appearance. No visible sclerosis. ??Normal ?? leaflet mobility. ??No evidence of aortic valve stenosis. No aortic ?? regurgitation. ? AORTIC ROOT: ? Normal diameter and appearance. ? PULMONIC VALVE: ? Normal thickness and mobility. No stenosis. No ?? regurgitation. ? PERICARDIUM: ? No evidence of pericardial effusion. ? IVC: ? Collapses with inspirations. ? CONCLUSION: ? 1. Global left ventricular systolic function is normal; visually estimated ?? ejection fraction is 60 to 65% ?? 2. The right ventricle is poorly seen; it appears normal in size with reduced ?? systolic function ?? 3. Normal diastolic function ?? 4. Valves are poorly seen; no significant valvular abnormalities ? Adult Echocardiography Procedure Report ?? Left Ventricle ?? LVEDD (3.7 - 5.6 cm): ? 4.37 cm ?? LVESD (2.2 - 4.0 cm): ? 2.88 cm ?? LVIVS thickness (0.6 - 1.2 cm): ? 0.96 cm ?? LVPW thickness (0.5 - 1.0 cm): ? 1.01 cm ?? e': ? 0.10 m/s ?? E - e': ? 3.62 ?? LVOT Max Gradient: ? 2.82 mm[Hg] ?? LVOT Area (cm2): ? 0.84 m/s ?? Peak Velocity (LVOT): ? 0.84 m/s ?? Mean Velocity (LVOT): ? 0.51 m/s ?? LVOT Diameter ? 1.97 cm ?? Left Atrium ?? LA Volume Index (2D A2C): ? 24.45 ml/m2 ?? Left Atrium Systolic Dimension: ? 3.50 cm ?? Mitral Valve ?? MV E to A Ratio: ? 0.76 ?? Mitral Valve A-Wave Peak Velocity: ? 0.47 m/s ?? Mitral Valve E-Wave Peak Velocity: ? 0.36 m/s ?? Right Ventricle ?? Aorta ?? AO Root Diam: ? 3.06 cm ?? Aortic Valve ?? AoV Area (Peak Te): ? 2.73 cm2, 2.73 cm2 ?? AoV Area (VTI): ? 2.56 cm2, 2.56 cm2 ?? Peak Velocity(Antegrade Flow): ? 0.94 m/s ?? Peak Gradient(Antegrade Flow): ? 3.53 mm[Hg] ?? Mean Velocity(Antegrade Flow): ? 0.67 m/s ?? Mean Gradient(Antegrade Flow): ? 1.98 mm[Hg] ?? Velocity Time Integral: ? 19.76 cm ?? Tricuspid Valve ?? Pulmonic Valve ?? Peak Velocity: ? 0.74 m/s ?? Peak Gradient: ? 2.40 mm[Hg], 2.02 mm[Hg] ?? Right Atrium ? Dictated by: Nino Zapata M.D. on 05/27/2023 at 14:39 ? Approved by: Nino Zapata M.D. on 05/27/2023 at 14:43 ? Dictated By: ?Nino Zapata M.D. ? Signed By: ?05/27/23 144 ? DD/ 1443 ? TD/TT: ? Spinner Tender: Procedure Note Radiology, Radiologist, - 05/27/2023 [place] [address] Cardiology Report Signed Patient: DIANE CANAS RMR#: [id number] : 1970Acct:[id number] Age/Sex: 53 / FADM Date: 05/26/23 Loc: CARD Attending Dr: Carmela Lester NP Ordering Physician: Carmela Lester NP Date of Service: 05/26/23 Procedure(s): CA echo doppler complete Accession Number(s): [id number] cc: Carmela Lester NP Patient Name: DIANE CANAS MR#: [id number] : 1970 Exam Date: 05/26/2023 Ordering Doctor: DEREK Lester CNP ECHOCARDIOGRAM REPORT PROCEDURE: CA ECHO DOPPLER COMPLETE INDICATIONS: Uncontrolled hypertension, CABGx1, [place] x 2, former smoker COMPARISON: None. DESCRIPTION: [...] Nino Zapata M.D. Signed By:05/27/23 1444 DD/ 42 TD/TT: Spinner Tender: Authorizing ProviderResult TypeResult StatusLisa [facility] NPCLINISYNC IMAG[facility] Final Result documented in this encounter Visit Diagnoses Not on filedocumented in this encounter Care Teams Team MemberRelationshipSpecialtyStart DateEnd Date Parviz Stewart MD [address] [place] [address] PCP - GeneralFamily Medicine05/10/23 Carmela Lester NP [address] [place] [address] Referring PhysicianNurse Practitioner10/04/22 Carmela Lester NP [address] [place] [address] Nurse PractitionerFamily Medicine05/10/23 Nai Chávez DO [address] [place] [address] Referring PhysicianNeurology1/ Jessica Venegas NP Nurse PractitionerNeurology1/documented as of this encounter
--- OUTSIDE RECORDS SUMMARY | 2025-01-17 09:04 | XMS_ITS | Clinical Summary ---
Author Organization [facility] Healthcare Address [address] [place] [address] Care Team Providers Care Radiotelegraphist Name Role Phone Carmela Lester NP Unavailable [phone] Parviz Stewart MD Primary Care Provider Carmela Lester NP Unavailable [phone] Nai Chávez DO Unavailable [phone] Jessica Venegas NP Unavailable [phone] Allergies Active AllergyReactionsCriticalityNoted DateCommentsWound Dressing AdhesiveHives 03/01/2014 Medications MedicationSigDispense QuantityRefillsLast FilledStart DateEnd DateStatus tiZANidine (Zanaflex) 4 MG tablet Indications:Trapezius muscle spasmTake 1 tablet (4 mg) by mouth as needed at bedtime for muscle spasms for up to 15 days May cut pillin half and take 1/2 pill at bedtime 15 tablet ctive gabapentin (Neurontin) 300 MG capsule Indications:NeuropathyTake 1 capsule (300 mg) by mouth in the morning and 1 capsule (300 mg) in the evening and 1 capsule(300 mg) before bedtime. Take 300 mg by mouth in the morning and 300 mg in the evening and 300 mg before bedtime.. 270 capsule ctive nitroglycerin (Nitrostat) 0.4 MG SL tablet Indications:Coronary artery disease involving [place] coronary artery [place] heart without angina pectorisPlace 1 tablet (0.4 mg) under the tongue every 5 (five) minutes if needed for chest pain If after 3doses still chest pain, go to ER/call 911 25 tablet 4Active atorvastatin (Lipitor) 80 MG tablet Indications:Coronary artery disease involving [place] coronary artery of [place] heart without angina pectorisTake 1 tablet (80 mg) by mouth at bedtime Take pill in the evening time not morning 90 tablet tive ezetimibe (Zetia) 10 MG tablet Indications:Coronary artery disease involving [place] coronary artery [place] heart without angina pectorisTake 1 tablet (10 mg) by mouth Daily 90 tablet tive isosorbide mononitrate ER (Imdur) 120 MG 24 hr tablet Indications:Coronary artery disease involving [place] coronary artery [place] heart without angina pectoris,Essential hypertensionTake 1 tablet (120 mg) by mouth Daily Do not crush or chew. Take 120 mg by mouth in the morning. Donot crush or chew. . 90 tablet tive levothyroxine (Synthroid, Levoxyl) 75 MCG tablet Indications:Hypothyroidism (acquired)Take 1 tablet (75 mcg) by mouth in the morning. Take before meals. 90 tablet tive lisinopril 20 MG tablet Indications:Primary hypertension,Essential hypertensionTake 1 tablet (20 mg) by mouth in the morning and 1 tablet (20 mg) before bedtime. 180 tablet tive metoprolol tartrate (Lopressor) 100 MG tablet Indications:Primary hypertension,Essential hypertensionTake 1 tablet (100 mg) by mouth in the morning and 1 tablet (100 mg) before bedtime. 180 tablet tive metoprolol tartrate (Lopressor) 25 MG tablet Indications:Essential hypertensionTake 1 tablet (25 mg) by mouth in the morning and 1 tablet (25 mg) before bedtime. 180 tablet tive verapamil (Calan) 80 MG tablet Indications:Primary hypertension,Essential hypertensionTake 1 tablet (80 mg) by mouth in the morning and 1 tablet (80 mg) in the evening and 1 tablet (80 mg) before bedtime. 270 tablet 5Active DULoxetine (Cymbalta) [address] capsule Take 30 mg by mouth in the morning and 30 mg before bedtime. Do not crush or chew.Active Active Problems ProblemNoted DateDiagnosed DateCigarette nicotine dependence without zsfwraeyvocd75/01/2025 Assessment & Plan (09/11/2024 7:24 AM EDT): The patient has been advised of the risks of continued smoking: stroke, NC, all forms of cancer, lung disease, and . Options for quitting smoking include: cold turkey, hypnosis, acupuncture, nicotine replacement meds(gum, lozenges, and patches), Buproprion, and Varenicline. At this time pt is encouraged to evaluate their goals for wanting to quit smoking, and reach out toprovider when ready to start this process Breast cancer screening ppmzguvf66/01/2266Tnlohwrbutg86/15/2024Sensory kthkjgvzil08/15/2024Lumbosacral dfckmcpayznsj35/15/2024OSA (obstructive sleep apnea)09/26/2023 Assessment & Plan (09/11/2024 7:21 AM EDT): [...] etc: Doctor that manages your ERICK: Daytime idepixxqeo12/15/2024ervical stenosis of spinal canal09/07/2023 Assessment & Plan (09/07/2023 8:50 PM EDT): Reviewed MRI cervical spine Will refer to neurosurgeon dr helen Sales in 8 weeks Cervical sxylqppqzlatq91/26/2024 Assessment & Plan (09/07/2023 8:50 PM EDT): Reviewed MRI Refer neurosurgeon Check EMG right UE Cervical neck pain with evidence of disc wjqgnrf1007/11/2023 Assessment & Plan (07/11/2023 5:14 PM EDT): Suspect disc pathology right UE PT agrees with need for MRI Will order MRI Fu in 4 weeks to review the results Nrmkqtbwzq36/27/2024Lumbosacral radiculopathy at S1005/10/2023Loud snoring 05/10/2023eripheral artery emnmzdw9605/10/2023Myocardial /27/2024 Prinzmetal revijk2505/10/2023AD (coronary artery disease)05/10/2023 Assessment & Plan (09/11/2024 7:23 AM EDT): Current meds: statin, zetia, alee, imdur, b jose , verapamil, and prn nitroglycerin Abnormal ankle brachial index (LYSSA)05/10/2023GERD (gastroesophageal reflux disease)05/10/20235633Cwziuskoiel73/27/2024symptomatic microscopic hematuria 05/10/2023ilateral hand pain05/10/2023 Assessment & Plan (09/11/2024 2:59 PM EDT): Bilat hand xray Consider ortho, ?? Dequervains tenosynovitis Vitamin D ieenuxqweh57/27/2024Vitamin B12 rwfzvyisvt79/27/2024Seasonal allergies 05/10/2023ack pain, jobgqqw6805/10/2023Trapezius muscle spasm05/10/2023 Assessment & Plan (07/11/2023 4:03 PM EDT): [...] tizanidine at HS Fu in 2 weeks Gout05/09/2023Hypothyroidism (acquired)02/07/2023 Assessment & Plan (09/11/2024 7:23 AM EDT): Current med: levothyroxine Check labs yearly and prn dose change or change in sxs Assessment & Plan (02/07/2023 3:29 PM EST): C/o weight gain, fatigue Will check labs Cont current supplement at this time Idiopathic gout02/07/2023 Assessment & Plan (02/07/2023 3:30 PM EST): Check labs Angina cvbancfl70/17/4202Rlvxbgiskwvz30/17/2012 Assessment & Plan (09/11/2024 7:22 AM EDT): [...] to cardiology w her hx of CAD [facility], would like to see Dr Lombardo Assessment & Plan (05/10/2023 2:12 PM EST): Out of lisinopril, was only taking half the dose Meds are refilled, pt will start back on normal dose To stop by office in 2 days for blood pressure check Assessment & Plan (02/07/2023 3:29 PM EST): Stable, cont current meds Check labs Fu in 3 months Coronary vmawpnwfpulswnr18/15/2011 Assessment & Plan (02/07/2023 3:29 PM EST): Stable no chest pain Check labs, recommend quit tobacco Wghbonrskhhuxm94/15/2011 Overview (02/08/2023): Needs refill of zetia Assessment & Plan (09/11/2024 7:24 AM EDT): On statin and zetia Check labs yearly and prn dose changes Resolved Problems ProblemNoted DateDiagnosed DateResolved DateClosed traumatic minimally displaced fracture of proximal end of fibula with routine / Tobacco user/03/2024 Assessment & Plan (07/11/2023 4:03 PM EDT): The patient has been advised of the risks of continued smoking: stroke, NC, all forms of cancer, lung disease, and . Options for quitting smoking include: cold turkey, hypnosis, acupuncture, nicotine replacement meds(gum, lozenges, and patches), Buproprion, and Varenicline. At this time pt is encouraged to evaluate their goals for wanting to quit smoking, and reach out toprovider when ready to start this process Neck muscle spasm/7156Wwuhhsopkl81/27/202302/ Assessment & Plan (02/07/2023 3:30 PM EST): Z pack and albuterol inhaler Fu if not better Fluids and rest Encounters DateTypeDepartmentCare AcsqErxgjomnnii16/06/2025Refill [facility] [address] [place] [address] Carmela Lester NP Bilateral hand pain10/17/2024Telephone [facility] [address] [place] [address] Carmela Lester NP from Last 3 Months Immunizations ImmunizationAdministration DatesNext DueInfluenza, injectable, quadrivalent, preservative free11/04/2022,01/01/2022,01/03/2021,12/11/2019,11/03/2018, 12/23/2017Pneumococcal Conjugate PCV 3Pneumococcal Polysaccharide [id number] Family History Medical HistoryRelationNameCommentsHeart diseaseFatherHypertensionFather HypertensionMotherRelationNameStatusCommentsFatherMother Social History Tobacco UseTypesPacks/DayYears UsedDateSmoking Tobacco: IocmzcHazlyuvqvp368 Smokeless Tobacco: NeverAlcohol UseStandard Drinks/WeekCommentsNever0 (1 standard drink = 0.6 oz pure alcohol)PHQ-2AnswerDate RecordedPatient Health Questionnaire-2 Zivcm3054CommentsUnknownSex and Gender InformationValueDate RecordedSex Assigned at BirthNot on fileLegal SexFemale 05/26/2022 6:33 PM EDTGender IdentityNot on fileSexual OrientationNot on file Last Filed Vital Signs Vital SignReadingTime TakenCommentsBlood Peanhoba497/8007/03/2024 2:19 PM EDT Fciaj9432 2:19 PM FGWEuqgmhzqrma11.9 ??C (98.5 ??F)09/11/2024 2:19 PM EDTRespiratory Efkt7609 2:19 PM EDTOxygen Tvjttuxcnx08%09/11/2024 2:19 PM EDTInhaled Oxygen Concentration--Itggtx54.4 kg (139 lb 12.8 oz)09/11/2024 2:19 PM UOZGihrhz304.6 cm (5' 4 )03/26/2024 3:21 PM ESTBody Mass Index24 03/26/2024 3:21 PM EST Plan of Treatment Not on file Insurance Care Teams Team MemberRelationshipSpecialtyStart DateEnd Date Parviz Stewart MD [address] [place] [address] PCP - GeneralFamily Medicine05/10/23 Carmela Lester NP [address] [place] [address] Referring PhysicianNurse Practitioner10/04/22 Carmela Lester NP [address] [place] [address] [facility] Pract[facility]erS[facility]05/10/23 Nai Chávez DO [address] [place] [address] Referring PhysicianNeurolog03/27/24 Jessica Venegas NP Nurse PractitionerNeurolog03/27/24
--- OUTSIDE RECORDS SUMMARY | 2025-01-17 09:04 | XMS_ITS | Clinical Summary ---
Author Organization [facility] Address [id number] [address] [place] [address] Care Team Providers Care Ingot Supervisor Name Role Phone OsieljaneinocencioCarmela Karlene CASTELLONN-VEGETABLE WORKER Primary Care Provider Social History Tobacco UseTypesPacks/DayYears UsedDateSmoking Tobacco: Never AssessedChildcare AnswerDate UrtthegxUahxjrqkaPfrjlsb73/10/2019EmploymentAnswerDate Recorded SubqzxqnomJxwgjfp45/10/2019CommentsUnknownSex and Gender Information ValueDate RecordedSex Assigned at BirthNot on fileLegal YvrEzlbhi95/04/2015 11:59 AM EDTGender IdentityNot on fileSexual OrientationNot on file Plan of Treatment Health MaintenanceDue DateLast DoneCommentsDepression Ilibtsciy39/17/1983Tobacco Zkflijwkz83/17/1983Adult BMI Ijcjijuyy59/17/1989DTaP,Tdap and Td Vaccines (1 - Tdap)1990Pap Smear02/28/1992Zoster (Shingles) Vaccine (1 of 2)2021 Influenza Tbabrlx91/01/241784/, 11/03/2018, 12/23/2017 Medical Devices Not on file Insurance Care Teams Team MemberRelationshipSpecialtyStart DateEnd Date Carmela Lester, EDUCATION INSTRUCTOR-VEGETABLE WORKER PCP - GeneralNurse Practitioner10/21/20
--- OUTSIDE RECORDS SUMMARY | 2025-01-17 09:04 | XMS_ITS | Clinical Summary ---
Author Organization [facility] Address [address] [place] [address] Care Team Providers Care Sap Technical Architect Name Role Phone Carmela Lester MD Primary Care Provider [phone] Allergies No known active allergies Medications MedicationSigDispense QuantityRefillsLast FilledStart DateEnd DateStatus allopurinol (Zyloprim) 100 mg tablet Active aspirin 325 mg tablet Take 1 tablet every day by oral route.Active atorvastatin (Lipitor) 80 mg tablet Take 80 mg by mouth in the evening.05/10/2023ctive ezetimibe (Zetia) 10 mg tablet Take 10 mg by mouth in the morning.05/09/2023ctive gabapentin (Neurontin) 300 mg capsule Take 400 mg by mouth two times daily.06/07/2023ctive isosorbide mononitrate ER (Imdur) 120 mg 24 hr tablet Take 120 mg by mouth in the morning.05/10/2023ctive levothyroxine (Synthroid, Levoxyl) 75 mcg tablet 06/04/2023ctive lisinopril 20 mg tablet Take 2 tablets by mouth at bedtime.Active metoprolol tartrate (Lopressor) 100 mg tablet Take 1 tablet by mouth in the morning and at bedtime. In addition to metopro tartrate 25mg bid = 125mg bidActive metoprolol tartrate (Lopressor) 25 mg tablet Take 25 mg by mouth twice a day. In addition to metoprolol tartrate 100mg bid= 125mg bid05/17/2023ctive nitroglycerin (Nitrostat) 0.[address] 1 tablet under the tongue if needed every 5 minutes for anabel... (REFER TO PRESCRIPTION NOTES).05/10/2023ctive tiZANidine (Zanaflex) 4 mg tablet take 1 tablet by mouth at bedtime if needed for muscle spasm FOR ... (REFER TO PRESCRIPTION NOTES).05/30/2023ctive verapamil (Calan) 80 mg tablet Take 80 mg by mouth two times daily.05/09/2023ctive Active Problems ProblemNoted DateDiagnosed DateDaytime flywwknfmy41/15/2024OSA (obstructive sleep apnea)09/26/20239264Woztuhcvdhk27/15/2024ervical pntbrnuvpldve14/26/2024 Cervical neck pain with evidence of disc engexgx2807/11/2023bnormal ankle brachial index (LYSSA)symptomatic microscopic hematuria ack pain, gbamzci14ilateral hand pain GERD (gastroesophageal reflux disease) Loud aiuclfp21Lumbosacral radiculopathy at S1005/10/2023 06/08/20233952Vfemgihakzw50Neuropathy Peripheral artery ielnwzo65Seasonal beqhkhvbn83/27/2024 06/08/2023Tobacco userTrapezius muscle spasm05/10/2023 06/08/2023 Overview (06/08/2023): Last Assessment & Plan: Doing well on tizanidine, will give refill Will refer to [facility] in 6 weeks Vitamin B12 tecknbgsmn44Vitamin D aemxlkyxit20/27/2024 06/08/2023GoutHypothyroidism (acquired)/ Overview (06/08/2023): Last Assessment & Plan: C/o weight gain, fatigue Will check labs Cont current supplement at this time Prinzmetal jfalsf93Essential znekaeiefzsn09 Overview (06/08/2023): Last Assessment & Plan: Back on lisinopril BID, better blood pressure control with metoprolol at 125mg BID I have reviewed her ECHO report with her, I am going to refer her back to cardiology w her hx of CAD [facility], would like to see Dr Lombardo Coronary cchnxwojwehfdmn46 Overview (06/08/2023): Last Assessment & Plan: Stable no chest pain Check labs, recommend quit tobacco Gadqrqmqxkmong11 Overview (06/08/2023): Needs refill of zetia Family History Medical HistoryRelationNameCommentsCoronary artery diseaseFatherRelationName StatusCommentsFather Social History Tobacco UseTypesPacks/DayYears UsedDateSmoking Tobacco: FormerCigarettes Smokeless Tobacco: Current Tobacco Cessation:Ready to Q uit: Not Asked; Counseling Given: Not Answered Comments:vapes Alcohol UseStandard Drinks/WeekCommentsNot Currently0 (1 standard drink = 0.6 oz pure alcohol)ME Safety & EnvironmentAnswerDate RecordedFear of Current or Ex-PartnerNot on file05/31/2023Emotionally AbusedNot on file05/31/2023hysically AbusedNot on file05/31/2023Sexually AbusedNot on 05/31/2023hysically or Sexually AbusedNot on 05/31/2023CommentsUnknownSex and Gender InformationValueDate RecordedSex Assigned at BirthNot on fileLegal SexFemale 09/09/2021 10:46 PM EDTGender IdentityNot on fileSexual OrientationNot on file Last Filed Vital Signs Vital SignReadingTime TakenCommentsBlood Ewqaustn937/8406/04/2024 1:00 PM EDT Qcqcj341906/04/2024 1:00 PM EDTTemperature--Respiratory Rate--Oxygen Vhsemgvawq00% 06/04/2024 1:00 PM EDTInhaled Oxygen Concentration--Ubwfoi42.8 kg (145 lb) 06/04/2024 1:00 PM UKRPkwaev469.6 cm (5' 4 )06/04/2024 1:00 PM EDTBody Mass Index24.8906/04/2024 1:00 PM EDT Plan of Treatment Health MaintenanceDue DateLast DoneCommentsCT Tsveknbzdgci1971Colonoscopy 1971FOBT1970 3700Gbahosryplfkq1971Depression Utfkycixq62/17/1983 Hepatitis B Vaccines (1 of 3 - 19+ 3-dose series)1990Pap Smear02/28/1992 Adult Jgajxvj7902/27/1993Cervical Cancer Bwrcphpgv74/17/2001HPV/Pbwsuu6402/27/2001 Tcvkwnmrz42/17/2011Zoster Vaccines (1 of 2)2021FIT COVID-19 Vaccine (1 - season)2024Influenza Vaccine (#1)2024 11/04/2022, 01/01/2022, 01/03/2021, Additional history existsColorectal Cancer Klixnxfho81/15/2026FIT-DNAneumococcal Vaccine: Pediatrics (0 to 5 Years) and At-Risk Patients (6 to 64 Years)Cyidlqlzs38/24/2023, 11/03/2018HIB VaccinesAged OutNo longer eligible based on patient's age to complete this topicHPV VaccinesAged OutNo longer eligible based on patient's age to complete this topicIPV VaccinesAged OutNo longer eligible based on patient's age to complete this topicMeningococcal B VaccineAged OutNo longer eligible based on patient's age to complete this topicMeningococcal VaccineAged OutNo longer eligible based on patient's age to complete this topicRotavirus Vaccines Aged OutNo longer eligible based on patient's age to complete this topic Insurance Care Teams Team MemberRelationshipSpecialtyStart DateEnd Date Carmela Lester MD [address] [place] [address] PCP - GeneralNurse Practitioner06/08/23
--- OUTSIDE RECORDS SUMMARY | 2025-01-17 09:04 | XMS_ITS | Encounter Summary ---
Author Organization [facility] Address [address] [place] [address] Care Team Providers Care Java Grails Developer Name Role Phone Carmela Lester NP Unavailable [phone] Parviz Stewart MD Primary Care Provider Carmela Lester NP Unavailable [phone] Nai Chávez DO Unavailable [phone] Jessica Venegas NP Unavailable [phone] Encounter Details DateTypeDepartmentCare Team (Latest Contact Info)Moaaiqwllhs64/24/2024Clinisync Result Encounter [facility] Unsolicited Carmela Lester NP [address] [place] [address] Social History Tobacco UseTypesPacks/DayYears UsedDateSmoking Tobacco: Every JrwKeacbzmast564 Alcohol UseStandard Drinks/WeekCommentsNever0 (1 standard drink = 0.6 oz pure alcohol)PHQ-2AnswerDate RecordedPatient Health Questionnaire-2 Cewoj110 CommentsUnknownSex and Gender InformationValueDate RecordedSex Assigned at BirthNot on fileLegal ElvVskstx22/15/2023 6:33 PM EDTGender IdentityNot on fileSexual OrientationNot on filedocumented as of this encounter Plan of Treatment Not on file documented as of this encounter Procedures Procedure NamePriorityDate/TimeAssociated DiagnosisCommentsMR CERVICAL SPINE WO XWQQWFQV17/24/2024 6:52 AM EDT documented in this encounter Results * MR cervical spine wo contrast (09/05/2023 6:52 AM EDT)Anatomical Region LateralityModalitySpine, C-spineMagnetic ResonanceSpecimen (Source)Anatomical Location / LateralityCollection Method / VolumeCollection TimeReceived Time 09/05/2023 6:52 AM EDT Narrative 09/05/2023 6:54 AM EDT [facility] ?[address] ? [place] [address] ? Magnetic Resonance Report ? Signed ? Patient: DIANE CANAS ?MR#: [id number] ?? : 1970 ?Acct:[id number] ?? Age/Sex: 53 / F ?ADM Date: 09/02/23 ?? Loc: MRI ? Attending Dr: Carmela Lester OFFSET PLATE PREPARATION SUPERVISOR ? Ordering Physician: Carmela Lester NP ?? Date of Service: 09/02/23 ?? Procedure(s): MR cervical spine wo con ?? Accession Number(s): [id number] ? cc: Carmela Lester NP ? [facility] ? [address] [place] [address] ? [place] [address] ? Patient Name: ?? DIANE CANAS ? MRN: [facility]:[id number] ? date: 1970 ?Sex: F ?? Assigned Patient Location: MRI ?? Current Patient Location: ? Accession/Order Number: [id number] ?? Exam Date: 09/02/2023 ??14:05 ?Report Date: 09/05/2023 ??06:52 ? At the request of: ?? CARMELA LESTER ? Procedure: ??MR cervical spine wo con ? MR cervical spine wo con, 09/02/2023 2:05 PM EDT ? INDICATION: Cervical neck pain with evidence of disc disease ? COMPARISON: There is no appropriate prior study for comparison. ? TECHNIQUE: Multiplanar, multisequential MRI images of cervical spine were ?? obtained without contrast. ? FINDINGS: ? There is loss of normal physiologic cervical lordosis. The vertebral heights ?? are relatively preserved. ? The cervicomedullary junction is unremarkable. There is grade 1 ?? anterolisthesis ?? of C3 on C4 and mild retrolisthesis of C5 on C6. ? No definite signal abnormality within the spinal cord is noted. ? There are mild disc osteophyte complex associated with uncovertebral joint ?? arthrosis from C3 to T1. ? No significant neuroforaminal narrowing or canal stenosis at the level of ?? C2-C3 ?? is noted. ? At the level of C3-C4, there is grade 1 anterolisthesis with severe right and ?? mild left neuroforaminal narrowing and moderate canal stenosis. ? At the level of C4-C5, there is mild right and moderate left neuroforaminal ?? narrowing and no canal stenosis. ? At the level of C5-C6, there is moderate bilateral neuroforaminal narrowing ?? and ?? mild canal stenosis. ? At the level of C6-C7, there is mild right neuroforaminal narrowing and no ?? canal stenosis. ? Level of C7-T1, there is mild right neuroforaminal narrowing. No canal ?? stenosis. ? No definite muscular or ligamentous injury is noted. ? MR/MR cervical spine wo con ?? IMPRESSION: ? Mild to moderate degenerative changes of the cervical spine in particular at ?? C3-C4 and C5-C6. ? Electronically authenticated by: SOHAIL ??SHIRAA ?? Date: 09/05/2023 ??06:52 ? Dictated By: ?Sohail Rendon M.D. ? Signed By: ?09/05/23 0654 ? DD/ ? TD/TT: ? Swatch Maker: Procedure Note Radiology, Radiologist, MD - 09/05/2023 [facility] [place] [id number] Magnetic Resonance Report Signed Patient: DIANE CANAS RMR#: [id number] : 1970Acct:[id number] Age/Sex: 53 / FADM Date: 09/02/23 Loc: MRI Attending Dr: Carmela Lester NP Ordering Physician: Carmela Lester NP Date of Service: 09/02/23 Procedure(s): MR cervical spine wo con Accession Number(s): [id number] cc: Carmela Lester NP The [address] [address] Patient Name: DIANE CANAS MRN: [id number] date: 1970 Sex: F Assigned Patient Location: MRI Current Patient Location: Accession/Order Number: [id number] Exam Date: 09/02/2023 14:05 Report Date: 09/05/2023 [...] M.D. Signed By:09/05/23 0654 DD/ 0652 TD/TT: Swatch Maker: Authorizing ProviderResult TypeResult StatusLisa Lester NPIMG MRI PROCEDURES Final Result documented in this encounter Visit Diagnoses Not on filedocumented in this encounter Care Teams Team MemberRelationshipSpecialtyStart DateEnd Date Parviz Stewart MD [address] [place] [address] PCP - GeneralFacaly Medicine05/10/23 Carmela Lester NP [address] [place] [address] Referring PhysicianNurse Practitioner10/04/22 Carmela Lester NP [address] [place] [address] Nurse PractitionerBrigham And [facility] Medicine05/10/23 Nai Chávez DO [address] [place] [address] Referring PhysicianNeurology1/ Jessica Venegas NP Nurse PractitionerNeurology1/documented as of this encounter
--- OUTSIDE RECORDS SUMMARY | 2025-01-17 09:06 | XMS_ITS | CCD ---
Author Organization [facility] Care Team Providers Care Qualitative Field Coordinator Name Role Phone AICHHOLZ, FISHER TRAP CARMELA Admitting Unavailable AICHHOLZ, FISHER TRAP CARMELA Attending Unavailable AICHHOLZ, FISHER TRAP CARMELA Primary Care Unavailable AICHHOLZ, FISHER TRAP CARMELA Consulting Unavailable AICHHOLZ, FISHER TRAP CARMELA Admitting Unavailable AICHHOLZ, FISHER TRAP CARMELA Attending Unavailable AICHHOLZ, FISHER TRAP CARMELA Primary Care Unavailable AICHHOLZ, FISHER TRAP CARMELA Consulting Unavailable AICHHOLZ, FISHER TRAP CARMELA Admitting Unavailable AICHHOLZ, FISHER TRAP CARMELA Attending Unavailable AICHHOLZ, FISHER TRAP CARMELA Primary Care Unavailable AICHHOLZ, FISHER TRAP CARMELA Consulting Unavailable AICHHOLZ, FISHER TRAP CARMELA Admitting Unavailable AICHHOLZ, FISHER TRAP CARMELA Attending Unavailable AICHHOLZ, FISHER TRAP CARMELA Primary Care Unavailable AICHHOLZ, FISHER TRAP CARMELA Consulting Unavailable Aichholz, Carmela J Primary Care Provider ORLY Comer Attending Provider ORLY Comer Attending Provider ORLY Comer Attending Provider DO Milton Appiah Attending Provider Aichholz, Carmela J Primary Care Provider Milton Appiah DO Attending Provider [phone] Aicjaneholz STAINED GLASS ARTIST, Carmela Unavailable Parviz Stewart MD Primary Care Provider Aichholz STAINED GLASS ARTIST, Carmela Unavailable Milton Appiah Attending Unavailable Milton Appiah Admitting Unavailable Aichholz, Carmela J Primary Care Unavailable Bialaski, Milton N Attending Unavailable Td Milton N Admitting Unavailable Carmela Lester Primary Care Unavailable Amanda Comerna Admitting Unavailable Carmela Lester Primary Care Unavailable Nahomi, Loly Attending Unavailable Bialjoycei, Milton N Attending Unavailable Td, Milton N Admitting Unavailable Carmela Lester Primary Care Unavailable Den Chávez DO Unavailable Theo STAINED GLASS ARTIST, Jessica Unavailable ELTAHAWY, EHAB Attending Unavailable [place], EHAB Attending Unavailable Giedraitis , Andrius Vytautas Attending Unavailable Giedraitis , Andrius Vytautas Attending Unavailable Giedraitis , Andrius Vytautas Attending Unavailable Giedraitis , Andrius Vytautas Attending Unavailable Theo STAINED GLASS ARTIST, Jessica Unavailable [phone] DEN CHÁVEZ Attending Unavailable CARMELA LESTER Attending Unavailable ASHUTOSH QUINTANA Attending Unavailable CARMELA LESTER Referring Unavailable DEN CHÁVEZ Attending Unavailable MILTON APPIAH Referring Unavailable Trevon STAINED GLASS ARTIST-CCarmela Primary Care Provider [phone] Trevon STAINED GLASS ARTIST-CCarmela Attending Provider Trevon BENITEZ, Carmela Unavailable Parviz Stewrat MD Primary Care Provider Trevon BENITEZ, Carmela Unavailable Den Chávez DO Unavailable Theo BENITEZ, Jessica Unavailable [phone] Allergies Allergy ClassificationReported Allergen(s)Allergy TypeDate of OnsetReaction(s) Facility (1 source)DesonideDrug Rchpsvg90-80-8104Ijs [facility] Repository (20 sources)Wound Dressing AdhesiveDrug Pfxgdvm74-64-4973LdorwLIPK [facility] Medications Current Medications MedicationDrug Class(es)DatesSig (Normalized)Sig (Original)allopurinol 300 mg oral tablet (8 sources)Xanthine Oxidase InhibitorStart: 51-98-2464Krqgxgxvhxl 300 mg tablet Active MG PO October 06, 2023 12:00am Complies with drug therapyStart: 10-06-2023 Allopurinol Active MG PO October 06, 2023 12:00amaspirin 81 mg delayed release oral tablet (8 sources)Platelet Aggregation Inhibitor, Nonsteroidal Anti-inflammatory Drug Start: 37-64-0308Orguehk (Adult Low Dose Aspirin) 81 mg tablet,delayed release (DR/EC) Active 81 MG PO Daily October 06, 2023 12:00am Complies with drug therapy atorvastatin 80 mg oral tablet (20 sources)HMG-CoA Reductase InhibitorStart: 07-90-2589Nazfawuptpyy Active MG PO October 06, 2023 12:00amStart: 08-10-2023 End: 62-34-1677Marluaarthtf 80 mg tablet Active MG PO October 06, 2023 12:00am Complies with drug therapydiclofenac sodium 0.01 mg/mg topical gel (3 sources)Nonsteroidal Anti-inflammatory DrugStart: 10-16-2024 End: 55-87-6293mhxzgadutb sodium (Voltaren) 1 % gel Indications: Bilateral [...] oral tablet (20 sources)Dietary Cholesterol Absorption InhibitorStart: 83-74-4278Hgcrqgoll Active MG PO October 06, 2023 12:00amStart: 08-10-2023 End: 63-37-5713Tndcpvrma 10 mg tablet Active MG PO October 06, 2023 12:00am Complies with drug therapygabapentin 300 mg oral capsule (20 sources)Anti-epileptic AgentStart: 43-78-8198kzph 2 capsules by mouth three times daily as neededGabapentin 300 mg capsule Active 600 MG PO Three times daily as needed December 26, 2023 10:04am Complies with drug therapyStart: 03-98-7309pguo 600 mg by mouth three times dailyGabapentin Active 600 MG PO Three times daily December 26, 2023 10:04amStart: 10-06-2023 End: 19-47-2315Irrrfzfefg Discontinued MG PO October 06, 2023 12:00am December 26, 2023 10:06amStart: 08-10-2023 End: 90-19-3600Oukgcmlzmt 300 mg capsule Discontinued MG PO October 06, 2023 12:00am December 26, 2023 10:06am24 hr isosorbide mononitrate 120 mg extended release oral tablet (20 sources)Nitrate VasodilatorStart: 05-21-2024 End: 74-74-5902wyri 1 tablet by mouth once daily in the morningisosorbide mononitrate ER (Imdur) 120 MG 24 hr tablet Indications: Coronary artery disease involving [place] coronary artery of [place] heart without angina pectoris , Essential hypertension Take 1 tablet (120 mg) by mouth Daily Do not crush or chew. Take 120 mg by mouth in the morning. Do not crush or chew. . 90 tablet 1 09/11/2024 12/10/2024 ActiveStart: 66-66-3664jhij 1 tablet by mouth every twenty-four hoursIsosorbide Mononitrate 120 mg tablet extended release 24 hr Active MG PO October 06, 2023 12:00am Complies with drug therapyStart: 08-10-2023 End: 88-73-6830bpkx 1 tablet by mouth once daily in the morningisosorbide mononitrate ER (Imdur) 120 MG 24 hr tablet Indications: Coronary artery disease involving [place] coronary artery of [place] heart without angina pectoris (CMS/HCC) , Essential hypertension (CMS/HCC) Take 1 tablet (120 mg) by mouth Daily Do not crush or chew. Take 120 mg by mouth in the morning. Do not crush or chew. . 90 tablet 1 11/22/2023 Activelevothyroxine sodium 0.075 mg oral tablet (20 sources)l-ThyroxineStart: 30-96-7375Vztcijtzxwjzk Active MCG PO October 06, 2023 12:00amStart: 08-10-2023 End: 84-37-1031ulgz 1 tablet by mouth before mealtimelevothyroxine (Synthroid, Levoxyl) 75 MCG tablet Indications: Hypothyroidism (acquired) Take 1 tablet (75 mcg) by mouth in the morning. Take before meals. 90 tablet 1 09/11/2024 12/10/2024 Activelisinopril 20 mg oral tablet (20 sources)Angiotensin Converting Enzyme InhibitorStart: 22-80-1285ldyh 1 tablet by mouth twice dailyLisinopril 20 mg tablet Active 20 MG PO Twice daily December 12, 2024 7:02am Complies with drug therapyStart: 30-75-6030Jzuzbgjzfr Active MG PO October 06, 2023 12:00amStart: 08-10-2023 End: 04-79-4543ytze 1 tablet by mouth in the morninglisinopril 20 MG tablet Indications: Primary hypertension , Essential hypertension Take 1 tablet (20 mg) by mouth in the morning and 1 tablet (20 mg) before bedtime. 180 tablet 1 09/11/2024 12/10/2024 Activemetoprolol tartrate 25 mg oral tablet (20 sources)beta-Adrenergic BlockerStart: 05-21-2024 End: 09-34-7478ddbb 1 tablet by mouth twice dailyMetoprolol Tartrate 25 mg tablet Active 25 MG PO Twice daily December 11, 2024 12:00am Complies with drug therapyStart: 05-21-2024 End: 99-07-1289payw 1 tablet by mouth in the morningmetoprolol tartrate (Lopressor) 100 MG tablet Indications: Primary hypertension , Essential hyperten dominguez Take 1 tablet (100 mg) by mouth in the morning and 1 tablet (100 mg) before bedtime. 180 tablet 1 09/11/2024 12/10/2024 ActiveStart: 03-14-2024 End: 79-57-1463nqrq 1 tablet by mouth in the morningmetoprolol tartrate (Lopressor) 25 MG tablet Indications: Essential hypertension (CMS/HCC) Take 1 ta blet (25 mg) by mouth in the morning and 1 tablet (25 mg) before bedtime. 60 tablet 1 03/14/2024 04/13/2024 ActiveStart: 01-13-2024 End: 85-54-5817vhwq 1 tablet by mouth in the morningmetoprolol tartrate (Lopressor) 25 MG tablet Indications: Essential hypertension (CMS/HCC) Take 1 ta blet (25 mg) by mouth in the morning and 1 tablet (25 mg) before bedtime. 60 tablet 1 01/13/2024 ActiveStart: 43-17-3699Avoxhzugbn Tartrate 100 mg tablet Active 125 MG PO Twice daily December 26, 2023 10:05am Complies with drug therapyStart: 36-19-9414skzp 125 mg by mouth twice dailyMetoprolol Tartrate Active 125 MG PO Twice daily December 26, 2023 10:05amStart: 10-06-2023 End: 60-39-8951Tiiyyyxelz Tartrate Discontinued MG PO October 06, 2023 12:00am December 26, 2023 10:06amStart: 08-10-2023 End: 07-74-8665rqtz 1 tablet by mouth in the morningmetoprolol tartrate (Lopressor) 25 MG tablet Indications: Essential hypertension (CMS/HCC) Take 1 ta blet (25 mg) by mouth in the morning and 1 tablet (25 mg) before bedtime. 60 tablet 1 11/22/2023 12/22/2023 ActiveStart: 08-10-2023 End: 22-89-0202Vgijdrofxi Tartrate 100 mg tablet Discontinued MG PO October 06, 2023 12:00am December 26, 2023 10:06amnitroglycerin 0.4 mg sublingual tablet (20 sources)Nitrate VasodilatorStart: 95-85-7572Rkvxcburswnhp Active MG SUBLINGUAL December 26, 2023 12:00amStart: 05-10-2023 End: 16-34-0298Rycqaenznhnvl 0.4 mg tablet, sublingual Active MG SUBLINGUAL December 26, 2023 12:00am Complies with drug therapyNitroglycerin 0.4 mg tablet, sublingual (1 source)Start: 75-69-6670Fmankjdzkxlrl 0.4 mg tablet, sublingual Active MG SUBLINGUAL December 25, 2023 11:00pmtiZANidine 4 mg oral tablet (20 sources)Central alpha-2 Adrenergic AgonistStart: 77-20-8851Venxfpaich Active MG PO October 06, 2023 12:00amStart: 09-40-5965okUXCjjapk (Zanaflex) 4 MG tablet Indications: Trapezius muscle spasm Take 1 tablet (4 mg) by mouthas needed at bedtime for muscle spasms for up to 15 days May cut pill in half and take 1/2 pill at bedtime 15 tablet 1 08/10/2023 Activeverapamil hydrochloride 80 mg oral tablet (20 sources)Calcium Channel BlockerStart: 33-78-8310Gdatqngcq Active MG PO October 06, 2023 12:00amStart: 08-10-2023 End: 65-04-0392Gdnamrbon 80 mg tablet Active MG PO October 06, 2023 12:00am Complies with drug therapy Problems Active Problems Problem ClassificationProblemDateDocumented DateEpisodic/ChronicAcute myocardial infarction (20 sources)Myocardial infarction; Translations: [Acute myocardial infarction, unspecified]Onset: 807675-69-4437XcidfvbTzscnlta atherosclerosis and other heart disease (20 sources)Atherosclerotic heart disease of [place] coronary artery without angina pectoris; Translations: [Angina pectoris]Onset: ChronicDisorders of lipid metabolism (20 sources)Pure hyperglyceridemia; Translations: [Hyperlipidemia, unspecified] Onset: 39-42-5408BdraszgOqkbeofrbv disorders (20 sources)Gastroesophageal reflux disease; Translations: [Gastro-esophageal reflux disease without esophagitis]Onset: 805253-84-0151SaiypqfJalhvfjom hypertension (20 sources)Essential (primary) hypertension; Translations: [Hypertensive disorder]Onset: 70-64-2884OuqeyctYixp and other crystal arthropathies (20 sources)Gout, unspecified; Translations: [Primary gout]Onset: 01-26-2022 33-43-5616DfmkyfxEknjprl and fatigue (1 source)Other fatigue; Translations: [OTHER FATIGUE]Onset: 45-26-9602Esiseisd Menstrual disorders (20 sources)Menorrhagia; Translations: [Excessive and frequent menstruation with regular cycle]Onset: 454545-13-8979VgazjcpFuonyckufqe deficiencies (20 sources)Vitamin D deficiency; Translations: [Vitamin D deficiency, unspecified]Onset: 892900-64-9367QltbglfPmdxk connective tissue disease (7 sources)Pain in upper limb; Translations: [Pain in arm, unspecified] 10-03-4422HregybkjLpgmr connective tissue disease (12 sources)Pain in arm, unspecified; Translations: [Pain in limb]10-06-2023 EpisodicOther connective tissue disease (1 source)Pain in right arm; Translations: [Pain in right arm]Onset: 03-02-2024 EpisodicOther nervous system disorders (7 sources)Ulnar neuropathy; Translations: [Lesion of ulnar nerve, unspecified upper limb]72-40-8830TzqugnuNzmof nervous system disorders (11 sources)Lesion of ulnar nerve, unspecified upper limb; Translations: [Lesion of ulnar nerve]Onset: 880453-07-8585ZldjqpfBnsew nervous system disorders (20 sources)Neuropathy; Translations: [Polyneuropathy, unspecified]Onset: 168355-95-5221MrhqregFayrn nervous system disorders (20 sources)Sensory neuropathy; Translations: [Polyneuropathy, unspecified] Onset: 987609-63-1960XotmktgXgqyx nervous system disorders (3 sources)Idiopathic peripheral neuropathy; Translations: [Hereditary and idiopathic neuropathy, unspecified]27-39-9568XgfabqcYzhdm nervous system disorders (2 sources)Numbness and tingling sensation of skin; Translations: [Anesthesia of skin]91-44-5979BeaxvaquPdfci non-traumatic joint disorders (2 sources)Joint pain; Translations: [Pain in unspecified joint]03-26-2024 EpisodicOther nutritional; endocrine; and metabolic disorders (1 source)Overweight; Translations: [OVERWEIGHT]Onset: 41-86-5011HarpbutqRjkku upper respiratory disease (20 sources)Seasonal allergy; Translations: [Other seasonal allergic rhinitis] Onset: 202364-78-9707OheixwwKtirndlsrt and visceral atherosclerosis (20 sources)Peripheral vascular disease, unspecified; Translations: [Peripheral vascular disease, unspecified]Onset: 737738-55-0326NxsylkzEyatbthw codes; unclassified (20 sources)Obstructive sleep apnea syndrome; Translations: [Obstructive sleep apnea (adult) (pediatric)]Onset: 898682-61-0012HbekbhzMwamoetcmwe; intervertebral disc disorders; other back problems (20 sources)Pain in cervical spine; Translations: [Cervical disc disorder, unspecified, unspecified cervical region]Onset: hronic Substance-related disorders (12 sources)Tobacco dependence caused by cigarettes; Translations: [Nicotine dependence, cigarettes, uncomplicated]Onset: 475601-12-6996DixnadvDytrdto disorders (20 sources)Hypothyroidism, unspecified; Translations: [Acquired hypothyroidism] Onset: 99-89-8837Hjlpkct Past or Other Problems Problem ClassificationProblemDateDocumented DateEpisodic/ChronicChronic obstructive pulmonary disease and bronchiectasis (20 sources)Bronchitis; Translations: [Bronchitis, not specified as acute or chronic]Onset: 02-07-2023 Resolved: 537433-38-2463EbjuprhlZckx; stupor; and brain damage (20 sources)Daytime somnolence; Translations: [Somnolence]Onset: 09-26-2023 74-60-7317TztcjshjWgceuhiq of lower limb (20 sources)Closed fracture of head of fibula; Translations: [Other fracture of upper and lower end of unspecified fibula, subsequent encounter for closed fracture with routine healing]Onset: 05-10-2023 Resolved: 087573-27-2625EpxakcqhDapkqrswllkzl symptoms and ill-defined conditions (20 sources)Asymptomatic microscopic hematuria; Translations: [Asymptomatic microscopic hematuria]Onset: 384365-52-4996QwqlazbjWztfxowqizz deficiencies (20 sources)Cobalamin deficiency; Translations: [Deficiency of other specified B group vitamins]Onset: 565755-17-1911OjheakvyFomhs connective tissue disease (20 sources)Pain of bilateral hands; Translations: [Pain in right hand]Onset: 996512-76-5385XowwkzybGyksc connective tissue disease (20 sources)Muscle spasm of cervical muscle of neck; Translations: [Other muscle spasm]Onset: 05-10-2023 Resolved: 093237-02-5685BntoomwdJvdpo lower respiratory disease (20 sources)Snoring; Translations: [Snoring]Onset: 807609-73-1108Icmkbpfx Other nervous system disorders (20 sources)Paresthesia; Translations: [Paresthesia of skin]Onset: 09-26-2023 13-77-4807MvqwhypiDvhdieyq codes; unclassified (20 sources)Finding of systemic arterial pressure; Translations: [Other general symptoms and signs]Onset: 757526-44-8846LahkrlwjMpoduvlp codes; unclassified (20 sources)Tobacco user; Translations: [Tobacco use]Onset: 05-10-2023 Resolved: 914864-18-0311ReiayozcHvzvdxsodrm; intervertebral disc disorders; other back problems (20 sources)Cervical radiculopathy; Translations: [Radiculopathy, cervical region]Onset: 660980-68-7220Muirhvoy Results Test NameValueInterpretationReference RangeFacilityXR Hand - bilateral 2 Viewson 22-37[place], [place] [address] XRay Report Signed Patient: DIANE MENDOZA MR#: [id number] : 1970 Acct:[id number] Age/Sex: 54 / F ADM Date: 10/10/24 Loc: [facility] Attending Dr: Carmela Lester NP Ordering Physician: Carmela Lester NP Date of Service: 10/10/24 Procedure(s): XR hand ALYSSA 2V Accession Number(s): [id number] cc: Carmela Lester NP [place] [id number] Patient Name: DIANE MENDOZA MRN: [id number] date: 1970 Sex: F Assigned Patient Location: RAD Current Patient Location: RAD Accession/Order Number: [id number] Exam Date: 10/10/2024 14:34 Report Date: 10/10/2024 [...] Jr., D.O. 10/10/2024 2:35 PM Dictation Location: [place] [address] Electronically authenticated by: [id number] Y Date: 10/10/2024 14:35 Dictated By: Supa Morales M.D. Signed By: 10/10/247 DD/ 34 TD/TT: Meter Calibrator:TBHRadiology, Radiologist, - 10/10/2024 [place] [address] XRay Report Signed Patient: DIANE MENDOZA MR#: [id number] : 1970 Acct:[id number] Age/Sex: 54 / F ADM Date: 10/10/24 Loc: [facility] Attending Dr: Carmela Lester NP Ordering Physician: Carmela Lester NP Date of Service: 10/10/24 Procedure(s): XR hand ALYSSA 2V Accession Number(s): [id number] cc: Carmela Lester NP [place] [id number] Patient Name: DIANE MENDOZA MRN: [id number] date: 1970 Sex: F Assigned Patient Location: [facility] Current Patient Location: [facility] Accession/Order Number: [id number] Exam Date: 10/10/2024 14:34 Report Date: 10/10/2024 [...] Jr., D.O. 10/10/2024 2:35 PM Dictation Location[facility] Electronically authenticated by: [id number] Y Date: 10/10/2024 14:35 Dictated By: Supa Morales M.D. Signed By: 10/10/24 143 DD/ 34 TD/TT: Meter Calibrator: LILY HealthcareRadiology Study observation (narrative)[facility]red HospitalXR Hand - bilateral 2 ViewsOrdered By: Radiologist Radiology on 39-21-1681HPEWKindred Hospital Work Phone: all CBC WITH AUTO DIFFon 77-95-4427DGWTQHELU ABSOLUTE AUTO0.1NOMS HealthcareBasophils/100 WBC (Bld)1.5 %0.2 - 2.0 %[facility] Eosinophils/100 WBC (Bld)2.6 %0.9 - 7.0 %Kindred HospitalErythrocyte distribution width (RBC) [Ratio]11.8 %11.0 - 15.0 %Kindred HospitalHematocrit (Bld) [Volume fraction]41.2 %36.0 - 48.0 %[facility]red HospitalHemoglobin (Bld) [Mass/Vol]13.7 g/dL 12.0 - 16.0 g/dLKindred HospitalIMMATURE GRANULOCYTES ABS AUTO0.02NOMissouri Rehabilitation Center Immature granulocytes/100 WBC (Bld)0.3 %0.0 - 0.5 %Kindred HospitalLYMPHOCYTES ABSOLUTE AUTO2.1NOMS HealthcareLymphocytes/100 WBC (Bld)35.1 %20.5 - 60.0 %[facility] CampusH (RBC) [Entitic mass]31.6 pg26.7 - 34.0 pgNOJefferson Memorial HospitalHC (RBC) [Mass/Vol]33.3 g/dL29.9 - 35.2 g/dLNOJefferson Memorial HospitalV (RBC) [Entitic vol]95.2 fL 81.0 - 99.0 fLNOHI HealthcareMONOCYTES ABSOLUTE AUTO0.6NOMS Healthcare Monocytes/100 WBC (Bld)9.4 %1.7 - 12.0 %NOM HealthcareNEUTROPHILS ABSOLUTE AUTO 3.1NOMS HealthcareNeutrophils/100 WBC (Bld)51.1 %43.0 - 75.0 %[facility] Healthcare Platelet mean volume (Bld) [Entitic vol]11.5 fL9.5 - 13.5 fLKindred HospitalTBH EO #0.2NOMS HealthcareTBH XEW921GFYF HealthcareTBH RBC4.33NOHI HealthcareTBH WBC 6NOHI HealthcareCLINISYNCNOMS HealthcareOffice Visiton 67-14-4611Ilviip-up visit [id number] Diane Mendoza 1970 F Date Provider Department Center 06/04/2024 [facility] Family History Problem Relation Age of Onset Coronary artery disease Father Family Status - Relation Status Age at Father Level of Service:24784 [place] OFFICE/OUTPATIENT ESTABLISHED LOW MDM 20 [facility]EM[facility] 2 Extremitieson 36-54-9518YWS/NCS BLE Moderate left chronic S1 radicNOMS HealthcareNOMS HealthcareNVC 9-10 Nerveson 21-69-2642SKX/NCS BLE Moderate left chronic S1 radicNOMS HealthcareNVC 9-10 NervesOrdered By: Den Chávez on 70-48-9441LSSE Healthcare Work Phone: aLL FOLIC ACIDon 28-47-8899YLCYBQ2.3 ng/mLLow8.60 - 58.90 ng/mLNOMS HealthcareInterpretation and review of laboratory results AbnormalNOMS HealthcareCLINISYNCNOMS HealthcareMR head/brain wo/w conon 73-52-1496GB head/brain wo/w [address] [address] MRI Report Signed Patient: Diane Mendoza MR#: [id number] 98 : 1970 Acct:[id number] Age/Sex: 54 / F ADM Date: 03/02/24 Loc: MR Room: Type: [facility] Attending Dr: Milton Appiah DO Copies [...] Gini Solis M.D.03/02/2024 11:22 PM Dictation Location: [place] [address] Transcribed By: [facility] 03/02/242321 Dictated By: Gini Solis MD 03/02/242311 Signed By: 03/02/24 [facility] cervical spine wo [facility] 11-95-1252IW cervical spine wo [facility] [place] [address] [place] [address] MRI Report Signed Patient: Diane Mendoza MR#: [id number] 98 : 1970 Acct:[id number] Age/Sex: 53 / F ADM Date: 01/13/24 Loc: MR Room: Type: [facility] Attending Dr: Milton Appiah DO Copies [...] Dank Camara M.D.01/13/2024 9:02 PM Dictation Location: [place] [address] Transcribed By: [facility] 01/13/242101 Dictated By: Dank Camara DO 01/13/242053 Signed By: 01/13/242101[facility] Physician GroupXR cerv spine AP/LAT/FLX/EXTon 54-96-7148IR cerv spine AP/LAT/FLX/EXTO[facility] [place] [address] [place] [address] XRay Report Signed Patient: Diane Mendoza MR#: [id number] 98 : 1970 Acct:[id number] Age/Sex: 53 / F ADM Date: 10/27/23 Loc: XD Room: Type: [facility] Attending Dr: Loly Comer APRN Copies [...] Dank Camara M.D.10/27/2023 4:13 PM Dictation Location: [place] [address] Transcribed By: [facility] 10/27/23 1613 Dictated By: Dank Camara DO 10/27/23 1611 Signed By: 10/27/[address] [place] [address] Physician GroupMR Cervical spine WO contraston 32-65-2007[place], [place] [address] Magnetic Resonance Report Signed Patient: DIANE MENDOZA MR#: [id number] : 1970 Acct:[id number] Age/Sex: 53 / F ADM Date: 09/02/23 Loc: MRI Attending Dr: Carmela Lester NP Ordering Physician: Carmela Lester NP Date of Service: 09/02/23 Procedure(s): MR cervical spine wo con Accession Number(s): [id number] cc: Carmela Lester NP [place] [phone] Patient Name: DIANE MENDOZA MRN: [id number] date: 1970 Sex: F Assigned Patient Location: MRI Current Patient Location: Accession/Order Number: [id number] Exam Date: 09/02/2023 14:05 Report Date: 09/05/2023 [...] at C3-C4 and C5-C6. Electronically authenticated by: BRANDY SAMPSON Date: 09/05/2023 06:52 Dictated By: Brandy Sampson M.D. Signed By: 09/05/23 0654 DD/ 0652 TD/TT: Meter Calibrator:SOMMERadiology, Radiologist, - 09/05/2023 [place] [address] Magnetic Resonance Report Signed Patient: DIANE MENDOZA MR#: [id number] : 1970 Acct:[id number] Age/Sex: 53 / F ADM Date: 09/02/23 Loc: MRI Attending Dr: Carmela Lester NP Ordering Physician: Carmela Lester NP Date of Service: 09/02/23 Procedure(s): MR cervical spine wo con Accession Number(s): [id number] cc: Carmela Lester NP [place] [address] Patient Name: DIANE MENDOZA MRN: [facility]:[id number] date: 1970 Sex: F Assigned Patient Location: MRI Current Patient Location: Accession/Order Number: [id number] Exam Date: 09/02/2023 14:05 Report Date: 09/05/2023 [...] at C3-C4 and C5-C6. Electronically authenticated by: BRANDY SAMPSON Date: 09/05/2023 06:52 Dictated By: Brandy Sampson M.D. Signed By: 09/05/2354 DD/ 1 TD/TT: Meter Calibrator: LILY HealthcareRadiology Study observation (narrative)[facility] Cervical spine WO contrastOrdered By: Radiologist Radiology on 22-70-6246UQJQ Healthcare Work Phone: Office Visiton 90-42-6614Biftfn-up [id number] Diane Mendoza 1970 F Date Provider Department Center 06/08/[address] [place] [address], [facility] Family History Problem Relation Age of Onset Coronary artery disease Father Family Status - Relation Status Age at Father Level of Service:00828 [place] OFFICE/OUTPATIENT [place] [facility] 30 MINUTESNormal [facility]CA ECHO DOPPLER COMPLETEon [id number], [place] [address] Cardiology Report Signed Patient: DIANE MENDOZA MR#: [id number] : 1970 Acct:[id number] Age/Sex: 53 / F ADM Date: 05/26/23 Loc: CARD Attending Dr: Carmela Lester NP Ordering Physician: Carmela Lester NP Date of Service: 05/26/23 Procedure(s): CA echo doppler complete Accession Number(s): [id number] cc: Carmela Lester NP Patient Name: DIANE MENDOZA MR#: [id number] : 1970 Exam Date: 05/26/2023 Ordering Doctor: DEREK Lester FISHER TRAP ECHOCARDIOGRAM REPORT PROCEDURE: CA ECHO DOPPLER COMPLETE INDICATIONS: Uncontrolled hypertension, CABGx1, [place] x 2, former smoker COMPARISON: None. DESCRIPTION: [...] Nino Zapata M.D. Signed By: 05/27/23 1444 (more content not included)...TBHRadiology, Radiologist, MD - 05/27/2023 [place] [address] Cardiology Report Signed Patient: DIANE MENDOZA MR#: [id number] : 1970 Acct:[id number] Age/Sex: 53 / F ADM Date: 05/26/23 Loc: CARD Attending Dr: Carmela Lester NP Ordering Physician: Carmela Lester NP Date of Service: 05/26/23 Procedure(s): CA echo doppler complete Accession Number(s): [id number] cc: Carmela Lester NP Patient Name: DIANE MENDOZA MR#: [id number] : 1970 Exam Date: 05/26/2023 Ordering Doctor: DEREK Lester CNP ECHOCARDIOGRAM REPORT PROCEDURE: CA ECHO DOPPLER COMPLETE INDICATIONS: Uncontrolled hypertension, CABGx1, [place] x 2, former smoker COMPARISON: None. DESCRIPTION: [...] By: Nino Zapata M.D. Signed By: 05/27/23 144 DD/ 42 TD/TT: Meter Calibrator: [facility] HospitalRad[facility] (narrative)[facility] ECHO DOPPLER COMPLETEOrdered By: Radiologist Radiology on 05-26-7362[facility] Work Phone: cbc AUTO DIFFon [id number] #0.1 103/ulNormal 0.0-0.1The [facility] HospitalComment on above:Performed By: #### CBC #### [facility] [address] [address] [address] Candy Resendizls/100 WBC (Bld)0.6 %Normal0.2-2.0[facility] Comment on above:Performed By: #### CBC #### [facility] [address] [address] [address] Candy Kamara #0.3 103/ulNormal0.0-0.7The [facility]as HospitalComment on above: Performed By: #### CBC #### [facility] [address] [address] [address] Candy Villagranosinophils/100 WBC (Bld)2.8 %Normal0.9-7.0[facility] Comment on above:Performed By: #### CBC #### [facility] [address] [place] [address] Dr. Candy Villagranrythrocyte distribution width (RBC) [Ratio]11.9 %Irfwio75.0-15.0 The [facility]as HospitalComment on above:Performed By: #### CBC #### [facility] [address] [place] [address] Dr. Candy CortezHematocrit (Bld) [Volume fraction]39.5 %Kvacwz10.0-48.0The [facility] HospitalComment on above:Performed By: #### CBC #### [facility] [address] [place] [address] Dr. Candy CortezHemoglobin (Bld) [Mass/Vol]12.8 g/yPRgsjne91.0-16.0The [facility] HospitalComment on above:Performed By: #### CBC #### [facility] [address] [place] [address] Dr. Candy Martines #0.04 10e3/ulCritically high0.00-0.03The [facility] Comment on above:Performed By: #### CBC #### [facility] [address] [place] [address] Dr. Candy Martines %0.4 %Normal0.0-0.5The [facility] HospitalComment on above: Performed By: #### CBC #### [facility] [address] [place] [address] Dr. Candy NairH #3.2 103/ulNormal1.2-3.8The [facility] HospitalComment on above:Performed By: #### CBC #### [facility] [address] [place] [address] Dr. Candy Sunmphocytes/100 WBC (Bld)33.9 %Gjhebn03.5-60.0The [facility]as HospitalComment on above:Performed By: #### CBC #### [facility] [address] [place] [address] Dr. Candy Manzanares DIFF REQNONormalThe [facility]as HospitalComment on above: Performed By: #### CBC #### [facility] [address] [place] [address] Dr. Candy Cervantes (RBC) [Entitic mass]31.3 xfRvqvtn39.7-34.0The [facility] HospitalComment on above:Performed By: #### CBC #### [facility] [address] [place] [address] Dr. Candy Cervantes (RBC) [Mass/Vol]32.4 g/mXOpsaho14.9-35.2The [facility] HospitalComment on above:Performed By: #### CBC #### [facility] [address] [place] [address] Dr. Candy Cervantes (RBC) [Entitic vol]96.6 nPUovdzr21.0-99.0The [facility] HospitalComment on above:Performed By: #### CBC #### [facility] [address] [place] [address] Dr. Candy Glass #0.8 103/ulNormal0.3-0.8The [facility] HospitalComment on above:Performed By: #### CBC #### [facility] [address] [place] [address] Dr. Candy Linkocytes/100 WBC (Bld)8.3 %Normal1.7-12.0[facility] Comment on above:Performed By: #### CBC #### [facility] [address] [place] [address] Dr. Candy Melendez #5.1 103/ulNormal1.4-6.5The [facility] HospitalComment on above:Performed By: #### CBC #### [facility] [address] [place] [address] Dr. Candy Moctezumautrophils/100 WBC (Bld)54.0 %Pwiqko22.0-75.0The [facility] HospitalComment on above:Performed By: #### CBC #### [facility] [address] [place] [address] Dr. Candy Abel mean volume (Bld) [Entitic vol]11.6 fLNormal9.5-13.5The [facility] HospitalComment on above:Performed By: #### CBC #### [facility] [address] [place] [address] Dr. Candy TurpinT258 103/bcAktrfo605-922Xpg [facility] HospitalComment on above: Performed By: #### CBC #### [facility] [address] [place] [address] Dr. Candy CortezRBC4.09 106/ulCritically low4.20-5.40The [facility]as HospitalComment on above:Performed By: #### CBC #### [facility] [address] [place] [address] Dr. Candy CortezWBC9.4 103/ulNormal4.0-11.0The [facility] HospitalComment on above: Performed By: #### CBC #### [facility] [address] [place] [address] Dr. Candy Castañeda T4on 28-08-1522Indf T4 [Mass/Vol]0.91 ng/dLNormal0.76-1.46 The [facility] HospitalComformerly [facility] on above:Performed By: #### TSH, URIC, CMP, LIPID #### [facility] [address] [place] [address] Dr. Candy Mitchell 18-20-1330Bukb [Mass/Vol]106.0 ug/eDQoahvp37.0-170.0The [facility] HospitalComment on above:Performed By: #### TSH, URIC, CMP, LIPID #### [facility] [address] [place] [address] Dr. Candy CortezPROF 14(COMP METB)on 66-53-0074Ctjbjte [Mass/Vol]3.7 g/dLNormal 3.4-5.0The [facility] HospitalComment on above:Performed By: #### TSH, CMP #### [facility] [address] [address] [address] Candy CortezAlbumin/Globulin [Mass ratio]1.0 {ratio}NormalThe [facility]uffton Hospitalment on above:Performed By: #### TSH, CMP #### [facility] [address] [address] [address] Candy Figueredo [Catalytic activity/Vol]84 U/LVsipsm19-297Nuy [facility] HospitalComment on above:Performed By: #### TSH, CMP #### [facility] [address] [address] [address] Candy Yap [Catalytic activity/Vol]36 U/VIlthfz46-01Ybi [facility] Hospitalment on above:Performed By: #### TSH, CMP #### [facility] [address] [address] [address] Candy Camaraon gap [Moles/Vol]11.6 mmol/LNormalThe [facility] Comment on above:Performed By: #### TSH, CMP #### [facility] [address] [address] [address] Candy Sparks [Catalytic activity/Vol]30 U/WCnoyru03-23Poy [facility] on above:Performed By: #### TSH, CMP #### [facility] [address] [address] [address] Candy CortezBilirubin [Mass/Vol]0.4 mg/dLNormal0.2-1.0The [facility] Comment on above:Performed By: #### TSH, CMP #### [facility] [address] [address] [address] Candy CortezCalcium [Mass/Vol]9.4 mg/dLNormal8.5-10.1The [facility] Comment on above:Performed By: #### TSH, CMP #### [facility] [address] [address] [address] Candy CortezChloride [Moles/Vol]105 mmol/VQlggru16-978Fob [facility] Comment on above:Performed By: #### TSH, CMP #### [facility] [address] [address] [address] Candy CortezCO2 [Moles/Vol]29.2 mmol/QOjcoat14.0-32.0The [facility] Comment on above:Performed By: #### TSH, CMP #### [facility] [address] [address] [address] Candy CortezCreatinine [Mass/Vol]0.78 mg/dLNormal0.55-1.02[facility] SystemComment on above:Performed By: #### TSH, CMP #### [facility] [address] [place] [address] Dr. Candy VillagranGFR-AF SAO TOMEAN>60Normal>=60The [facility] HospitalComment on above:Performed By: #### TSH, CMP #### [facility] [address] [address] [address] Candy King-NON AF SAO TOMEAN>60Normal>=60The [facility] HospitalComment on above:Performed By: #### TSH, CMP #### [facility] [address] [address] [address] Candy CortezGlobulin (S) [Mass/Vol]3.8 g/dLNormalThe [facility] HospitalComment on above:Performed By: #### TSH, CMP #### [facility] [address] [address] [address] Candy CortezGlucose [Mass/Vol]95 mg/mDOvmexq69-763OjgMemorial Health System Comment on above:Performed By: #### TSH, CMP #### [facility] [address] [address] [address] Candy CortezPotassium [Moles/Vol]4.8 mmol/LNormal3.5-5.1The [facility] Comment on above:Performed By: #### TSH, CMP #### [facility] [address] [address] [address] Candy CortezProtein [Mass/Vol]7.5 g/dLNormal6.4-8.2The [facility] Comment on above:Performed By: #### TSH, CMP #### [facility] [address] [address] [address] Candy Loeraum [Moles/Vol]141 mmol/XSsywkd827-438Rqd [facility] Comment on above:Performed By: #### TSH, CMP #### [facility] [address] [place] [address] Dr. Candy Miranda nitrogen [Mass/Vol]13.0 mg/dLNormal7.0-18.0The [facility] HospitalComment on above:Performed By: #### TSH, CMP #### [facility] [address] [place] [address] Dr. Candy Miranda nitrogen/Creatinine [Mass ratio]16.7 mg/mgNoalThCleveland Clinic Lutheran HospitalComment on above:Performed By: #### TSH, CMP #### [facility] [address] [place] [address] Dr. Candy Muñoz 36-58-6766KZV2.818 uIU/mLNormal0.358-3.740The [facility] HospitalComment on above:Performed By: #### TSH, CMP #### [facility] [address] [place] [address] Dr. Candy Block RANDOM W/MICROSCOPICon 68-19-7690YKWQEEIMMQIY SEENNormalNONE SEENMemorial Health SystemComment on above:Performed By: #### UAMIC #### [facility] [address] [place] [address] Dr. Candy Luciano Ql (U)NegativeNormalNEGATIVEMemorial Health System Comment on above:Performed By: #### UAMIC #### [facility] [address] [place] [address] Dr. Candy Anna SEENNormalNONE SEENMemorial Health SystemComment on above:Performed By: #### UAMIC #### [facility] [address] [place] [address] Dr. Candy Meeksarity (U)CLEARNormalCLEARThe [facility] HospitalComment on above: Performed By: #### UAMIC #### [facility] [address] [address] [address] Candy Mantilla (U)LT. YELLOWNormalYELLOWMemorial Health SystemComment on above:Performed By: #### UAMIC #### [facility] [address] [address] [address] Candy CortezCrystals LM Nom (Urine sed)NONE SEENNormalNONE SEENMemorial Health SystemComment on above:Performed By: #### UAMIC #### [facility] [address] [address] [address] Gupta ChangEpithelial cells LM Ql (Urine sed)RARENormalNONE SEEN /RAREMemorial Health SystemComment on above:Performed By: #### UAMIC #### [facility] [address] [address] [address] Candy CortezGlucose Ql (U)NegativeNormalNEGATIVEMemorial Health SystemComment on above:Performed By: #### UAMIC #### [facility] [address] [address] [address] Candy CortezHemoglobin Ql (U)NegativeNormalNEGATIVEPeoples Hospital on above:Performed By: #### UAMIC #### [facility] [address] [address] [address] Candy CortezKetones Ql (U)NegativeNormalNEGATIVEMemorial Health SystemComment on above:Performed By: #### UAMIC #### [facility] [address] [address] [address] Candy CortezLEUKOCYTESNegativeNormalNEGATIVEMemorial Health SystemComment on above:Performed By: #### UAMIC #### [facility] [address] [address] [address] Candy CortezMUCOUSNONE SEENNormalNONE SEENMemorial Health SystemComment on above:Performed By: #### UAMIC #### [facility] [address] [address] [address] Candy Toney Ql (U)NegativeNormalNEGATIVEThe [facility] HospitalComment on above:Performed By: #### UAMIC #### [facility] [address] [place] [address] Dr. Candy CortezpH (U)7.0 [pH]Normal5-9The [facility] HospitalComment on above: Performed By: #### UAMIC #### [facility] [address] [place] [address] Dr. Candy CortezErkosWNH9-1Djaydq8-8Rmp [facility] HospitalComment on above:Performed By: #### UAMIC #### [facility] [address] [place] [address] Dr. Candy CortezSPEC GRAVITY<=1.460Fmiaqyqp4.005-<=1.025The [facility] Comment on above:Performed By: #### UAMIC #### [facility] [address] [place] [address] Dr. Candy CortezUA PROTEINNegativeNormalNEGATIVE/ TRACEThe [facility] Comment on above:Performed By: #### UAMIC #### [facility] [address] [place] [address] Dr. Candy Hutchisonbilinogen Qn (U)0.2 {Nicko'U}/dLNormal0.2 - 1.0The [facility] HospitalComment on above:Performed By: #### UAMIC #### [facility] [address] [place] [address] Dr. Candy CortezWBC0-2AbnormalNONE SEENThe [facility] HospitalComment on above: Performed By: #### UAMIC #### [facility] [address] [place] [address] Dr. Candy CortezVITAMIN B12on 56-48-7422Cdraqnuor (Vitamin B12) [Mass/Vol]201.0 pg/pZSgepkg959.0-986.0The [facility] HospitalComment on above:Performed By: #### TSH, URIC, CMP, LIPID #### [facility] [address] [place] [address] Dr. Candy CortezVITAMIN D 25 OHon 71-04-7599CHE D 25-OH14.6 ng/mLNormalMemorial Health SystemComment on above:Performed By: #### TSH, URIC, CMP, LIPID #### [facility] [address] [address] [address] Candy BACONSEE [facility] Hospital - AkronComment on above: Result Comment: <20 ng/mL Vit D deficient 20 - <30 ng/mL Vit D insufficient 30 - 100 ng/mL Vit D sufficient >100 ng/mL Potential ToxicityPerformed By: #### TSH, URIC, CMP, LIPID #### [facility] [address] [place] [address] Dr. Candy DavisID PROFILEon 58-03-3149EAVB-HDL RATIO NORMSEE [facility] AkronComformerly [facility] on above:Result Comment: 3.3 - 4.4 LOW RISK 4.4 - 7.1 AVERAGE RISK 7.1 - 11.0 MODERATE RISK >11.0 HIGH RISKPerformed By: #### TSH, URIC, CMP, LIPID #### [facility] [address] [place] [address] Dr. Candy Pedrozaesterol [Mass/Vol]162 mg/dLNormal<=200[facility] Comment on above:Performed By: #### TSH, URIC, CMP, LIPID #### [facility] [address] [address] [address] Candy CortezCholesterol in HDL [Mass/Vol]74 mg/dLCritically fzqv37-68AymMemorial Health SystemComment on above:Performed By: #### TSH, URIC, CMP, LIPID #### [facility] [address] [address] [address] Candy CortezCholesterol in LDL [Mass/Vol]54.8 mg/dLSCCI Hospital LimaComformerly [facility] on above:Performed By: #### TSH, URIC, CMP, LIPID #### [facility] [address] [place] [address] Dr. Candy Pedrozaestertaylor.total/Cholesterol in HDL [Mass ratio]2.2 {ratio} NormalThe Yves HospitalComment on above:Performed By: #### TSH, URIC, CMP, LIPID #### [facility] [address] [address] [address] Candy Rondon NORMAL> or = 60 mg/dl - LOW CARDIOVASCULAR RISK <40 mg/dl - HIGH CARDIOVASCULAR RISKAvita Health System [facility] on above:Performed By: #### TSH, URIC, CMP, LIPID #### [facility] [address] [address] [address] Candy Starks CALC NORMALSEE BELOWSCCI Hospital LimaComformerly [facility] on above:Result Comment: <100 mg/dl OPTIMAL 100 - 129 mg/dl NEAR OR ABOVE OPTIMAL 130 - 159 mg/dl BORDERLINE HIGH 160 - 189 mg/dl HIGH >190 mg/dl VERY HIGH Performed By: #### TSH, URIC, CMP, LIPID #### [facility] [address] [place] [address] Dr. Candy CortezTriglyceride [Mass/Vol]166 mg/dLCritically high<=150The [facility] on above:Performed By: #### TSH, URIC, CMP, LIPID #### [facility] [address] [address] [address] Candy RodriguezLDL CALC33.2 mg/dLAvita Health System [facility] Hospital on above: Performed By: #### TSH, URIC, CMP, LIPID #### [facility] [address] [address] [address] Candy Woodward 74-84-5715HGT [Catalytic activity/Vol]32 U/LUgreol05-35Aym [facility] on above:Performed By: #### TSH, URIC, CMP, LIPID #### [facility] [address] [address] [address] Candy Musa 12-84-7163CTF [Catalytic activity/Vol]52 U/MFszmuu11-20Xvh [facility] on above:Performed By: #### TSH, URIC, CMP, LIPID #### [facility] [address] [address] [address] Candy CortezLIPID PROFILEon 68-53-1759TQPE-HDL RATIO NORMSTriHealth McCullough-Hyde Memorial HospitalComment on above:Result Comment: 3.3 - 4.4 LOW RISK 4.4 - 7.1 AVERAGE RISK 7.1 - 11.0 MODERATE RISK >11.0 HIGH RISKPerformed By: #### TSH, URIC, CMP, LIPID #### [facility] [address] [place] [address] Dr. Candy CortezCholesterol [Mass/Vol]178 mg/dLNormal<=200The [facility] Comment on above:Performed By: #### TSH, URIC, CMP, LIPID #### [facility] [address] [place] [address] Dr. Candy CortezCholesterol in HDL [Mass/Vol]80 mg/dLCritically gqty98-20ZcbMemorial Health SystemComment on above:Performed By: #### TSH, URIC, CMP, LIPID #### [facility] [address] [place] [address] Dr. Candy Pedrozaesterol in LDL [Mass/Vol]43.4 mg/dLSCCI Hospital LimaComment on above:Performed By: #### TSH, URIC, CMP, LIPID #### [facility] [address] [place] [address] Dr. Candy Chamorro.total/Cholesterol in HDL [Mass ratio]2.2 {ratio} NormalMemorial Health SystemComformerly [facility] on above:Performed By: #### TSH, URIC, CMP, LIPID #### [facility] [address] [place] [address] Dr. Candy Rondon NORMAL> or = 60 mg/dl - LOW CARDIOVASCULAR RISK <40 mg/dl - HIGH CARDIOVASCULAR RISKSCCI Hospital LimaComment on above:Performed By: #### TSH, URIC, CMP, LIPID #### [facility] [address] [place] [address] Dr. Candy Starks CALC NORMALSEE [facility] AkronComformerly [facility] on above:Result Comment: <100 mg/dl OPTIMAL 100 - 129 mg/dl NEAR OR ABOVE OPTIMAL 130 - 159 mg/dl BORDERLINE HIGH 160 - 189 mg/dl HIGH >190 mg/dl VERY HIGH Performed By: #### TSH, URIC, CMP, LIPID #### [facility] [address] [place] [address] Dr. Candy CortezTriglyceride [Mass/Vol]273 mg/dLCritically high<=150The [facility] HospitalComment on above:Performed By: #### TSH, URIC, CMP, LIPID #### [facility] [address] [place] [address] Dr. Candy CortezVLDL CALC54.6 mg/dLNormalThe [facility] HospitalComment on above: Performed By: #### TSH, URIC, CMP, LIPID #### [facility] [address] [place] [address] Dr. Candy Campblel AUTO DIFFon 01-38-9185EUXL #0.1 103/ulNormal0.0-0.1The [facility] HospitalComment on above:Performed By: #### CBC #### [facility] [address] [place] [address] Dr. Candy CortezBasophils/100 WBC (Bld)1.2 %Normal0.2-2.0[facility] Comment on above:Performed By: #### CBC #### [facility] [address] [place] [address] Dr. Candy Kamara #0.2 103/ulNormal0.0-0.7The [facility] HospitalComment on above: Performed By: #### CBC #### [facility] [address] [place] [address] Dr. Candy Villagranosinophils/100 WBC (Bld)2.8 %Normal0.9-7.0The [facility] Comment on above:Performed By: #### CBC #### [facility] [address] [place] [address] Dr. Candy Villagranrythrocyte distribution width (RBC) [Ratio]12.2 %Xykajx84.0-15.0 The [facility]as HospitalComment on above:Performed By: #### CBC #### [facility] [address] [place] [address] Dr. Candy CortezHematocrit (Bld) [Volume fraction]41.0 %Soiojg63.0-48.0The [facility] HospitalComment on above:Performed By: #### CBC #### [facility] [address] [place] [address] Dr. Candy Loooglobin (Bld) [Mass/Vol]13.6 g/sWJqcdlf89.0-16.0The [facility] HospitalComment on above:Performed By: #### CBC #### [facility] [address] [place] [address] Dr. Candy Martines #0.00 10e3/ulNormal0.00-0.03The [facility] HospitalComment on above:Performed By: #### CBC #### [facility] [address] [place] [address] Dr. Candy CortezIG %0.0 %Normal0.0-0.5The [facility]as HospitalComment on above: Performed By: #### CBC #### [facility] [address] [place] [address] Dr. Candy Bragg #2.7 103/ulNormal1.2-3.8The [facility] HospitalComment on above:Performed By: #### CBC #### [facility] [address] [place] [address] Dr. Candy Sunmphocytes/100 WBC (Bld)47.5 %Mkpeok79.5-60.0The [facility]as HospitalComment on above:Performed By: #### CBC #### [facility] [address] [place] [address] Dr. Candy CortezMANUAL DIFF REQNONormalThe [facility]as HospitalComment on above: Performed By: #### CBC #### [facility] [address] [place] [address] Dr. Candy Black (RBC) [Entitic mass]32.5 bbKfvorr64.7-34.0The [facility]as HospitalComment on above:Performed By: #### CBC #### [facility] [address] [place] [address] Dr. Candy Cervantes (RBC) [Mass/Vol]33.2 g/oUQyjvaj61.9-35.2The [facility] HospitalComment on above:Performed By: #### CBC #### [facility] [address] [address] [address] Candy CervantesV (RBC) [Entitic vol]97.9 sWPmzuur89.0-99.0The [facility] HospitalComment on above:Performed By: #### CBC #### [facility] [address] [place] [address] Dr. Candy Glass #0.5 103/ulNormal0.3-0.8The [facility] HospitalComment on above:Performed By: #### CBC #### [facility] [address] [place] [address] Dr. Candy Linkocytes/100 WBC (Bld)8.4 %Normal1.7-12.0The [facility] Comment on above:Performed By: #### CBC #### [facility] [address] [place] [address] Dr. Candy Melendez #2.3 103/ulNormal1.4-6.5The [facility] HospitalComment on above:Performed By: #### CBC #### [facility] [address] [place] [address] Dr. Candy Moctezumautrophils/100 WBC (Bld)40.1 %Critically low43.0-75.0The [facility]as HospitalComment on above:Performed By: #### CBC #### [facility] [address] [place] [address] Dr. Candy Joyalet mean volume (Bld) [Entitic vol]11.5 fLNormal9.5-13.5The [facility]as HospitalComment on above:Performed By: #### CBC #### [facility] [address] [place] [address] Dr. Candy CortezPLT305 103/vkYeznxn609-529Kbo [facility] HospitalComment on above: Performed By: #### CBC #### [facility] [address] [place] [address] Dr. Candy CortezRBC4.19 106/ulCritically low4.20-5.40The [facility] HospitalComment on above:Performed By: #### CBC #### [facility] [address] [place] [address] Dr. Candy CortezWBC5.7 103/ulNormal4.0-11.0The [facility]as HospitalComment on above: Performed By: #### CBC #### [facility] [address] [place] [address] Dr. Candy CortezFREE T4on 96-55-7451Yzlv T4 [Mass/Vol]0.78 ng/dLNormal0.76-1.46 [facility] HospitalComment on above:Performed By: #### TSH, URIC, CMP, LIPID #### [facility] [address] [place] [address] Dr. Candy DavisID PROFILEon 10-08-9784CRLK-HDL RATIO NORMSEE BELOWNoDayton Children's HospitalComment on above:Result Comment: 3.3 - 4.4 LOW RISK 4.4 - 7.1 AVERAGE RISK 7.1 - 11.0 MODERATE RISK >11.0 HIGH RISKPerformed By: #### TSH, URIC, CMP, LIPID #### [facility] [address] [place] [address] Dr. Candy CortezCholesterol [Mass/Vol]167 mg/dLNormal<=200[facility] Comment on above:Performed By: #### TSH, URIC, CMP, LIPID #### [facility] [address] [place] [address] Dr. Candy Pedrozaesterol in HDL [Mass/Vol]64 mg/dLCritically viga90-21Cta [facility] HospitalComment on above:Performed By: #### TSH, URIC, CMP, LIPID #### [facility] [address] [place] [address] Dr. Candy Pedrozaesterol in LDL [Mass/Vol]43.6 mg/dLSCCI Hospital LimaComment on above:Performed By: #### TSH, URIC, CMP, LIPID #### [facility] [address] [address] [address] Candy CortezCholesterol.total/Cholesterol in HDL [Mass ratio]2.6 {ratio} NormalOhio [facility] East [facility] on above:Performed By: #### TSH, URIC, CMP, LIPID #### [facility] [address] [address] [address] Candy Rondon NORMAL> or = 60 mg/dl - LOW CARDIOVASCULAR RISK <40 mg/dl - HIGH CARDIOVASCULAR RISKAvita Health System [facility] on above:Performed By: #### TSH, URIC, CMP, LIPID #### [facility] [address] [address] [address] Candy CortezLDL CALC NORMALSEE BELOWSCCI Hospital LimaComformerly [facility] on above:Result Comment: <100 mg/dl OPTIMAL 100 - 129 mg/dl NEAR OR ABOVE OPTIMAL 130 - 159 mg/dl BORDERLINE HIGH 160 - 189 mg/dl HIGH >190 mg/dl VERY HIGH Performed By: #### TSH, URIC, CMP, LIPID #### [facility] [address] [address] [address] Candy CortezTriglyceride [Mass/Vol]297 mg/dLCritically high<=150The [facility] on above:Performed By: #### TSH, URIC, CMP, LIPID #### [facility] [address] [address] [address] Candy RodriguezLDL CALC59.4 mg/dLNoMorrow County Hospital on above: Performed By: #### TSH, URIC, CMP, LIPID #### [facility] [address] [address] [address] Candy CotrezPROF 14(COMP METB)on 05-20-2867Yvabete [Mass/Vol]3.6 g/dLNormal 3.4-5.0[facility] on above:Performed By: #### TSH, URIC, CMP, LIPID #### [facility] [address] [address] [address] Candy oCrtezAlbumin/Globulin [Mass ratio]1.0 {ratio}NormalMemorial Health SystemComment on above:Performed By: #### TSH, URIC, CMP, LIPID #### [facility] [address] [address] [address] Candy Figueredo [Catalytic activity/Vol]79 U/XJaxizt31-323Qjp [facility] HospitalComment on above:Performed By: #### TSH, URIC, CMP, LIPID #### [facility] [address] [place] [address] Dr. Candy Yap [Catalytic activity/Vol]23 U/CTaafei88-91Jad [facility] HospitalComment on above:Performed By: #### TSH, URIC, CMP, LIPID #### [facility] [address] [place] [address] Dr. Candy Borjas gap [Moles/Vol]9.7 mmol/LNormalThe [facility]awas HospitalComment on above:Performed By: #### TSH, URIC, CMP, LIPID #### [facility] [address] [place] [address] Dr. Candy Sparks [Catalytic activity/Vol]20 U/DNiiowt67-98Qjb [facility] HospitalComment on above:Performed By: #### TSH, URIC, CMP, LIPID #### [facility] [address] [place] [address] Dr. Candy CortezBilirubin [Mass/Vol]0.4 mg/dLNormal0.2-1.0[facility] Comment on above:Performed By: #### TSH, URIC, CMP, LIPID #### [facility] [address] [place] [address] Dr. Candy CortezCalcium [Mass/Vol]9.1 mg/dLNormal8.5-10.1[facility] Comment on above:Performed By: #### TSH, URIC, CMP, LIPID #### [facility] [address] [place] [address] Dr. Candy CortezChloride [Moles/Vol]103 mmol/HNiqltj86-464Izt [facility] Comment on above:Performed By: #### TSH, URIC, CMP, LIPID #### [facility] [address] [address] [address] Candy CortezCO2 [Moles/Vol]29.0 mmol/WXizmte52.0-32.0The [facility] Comment on above:Performed By: #### TSH, URIC, CMP, LIPID #### [facility] [address] [address] [address] Candy CortezCreatinine [Mass/Vol]0.72 mg/dLNormal0.55-1.02The [facility] HospitalComment on above:Performed By: #### TSH, URIC, CMP, LIPID #### [facility] [address] [place] [address] Dr. Candy VillagranGFR-AF SAO TOMEAN>60Normal>=60The [facility]as HospitalComment on above:Performed By: #### TSH, URIC, CMP, LIPID #### [facility] [address] [place] [address] Dr. Candy VillagranGFR-NON AF SAO TOMEAN>60Normal>=60The [facility]as HospitalComment on above:Performed By: #### TSH, URIC, CMP, LIPID #### [facility] [address] [place] [address] Dr. Candy CortezGlobulin (S) [Mass/Vol]3.7 g/dLNormalThe [facility]awas HospitalComment on above:Performed By: #### TSH, URIC, CMP, LIPID #### [facility] [address] [place] [address] Dr. Candy CortezGlucose [Mass/Vol]93 mg/tIMmhyrr96-376Icc [facility] Comment on above:Performed By: #### TSH, URIC, CMP, LIPID #### [facility] [address] [place] [address] Dr. Candy CortezPotassium [Moles/Vol]4.7 mmol/LNormal3.5-5.1The [facility] Comment on above:Performed By: #### TSH, URIC, CMP, LIPID #### [facility] [address] [place] [address] Dr. Candy CortezProtein [Mass/Vol]7.3 g/dLNormal6.4-8.2The [facility] Comment on above:Performed By: #### TSH, URIC, CMP, LIPID #### [facility] [address] [address] [address] Candy Loeraum [Moles/Vol]137 mmol/CNnsksk148-337Spk [facility] Comment on above:Performed By: #### TSH, URIC, CMP, LIPID #### [facility] [address] [place] [address] Dr. Candy Miranda nitrogen [Mass/Vol]12.0 mg/dLNormal7.0-18.0The [facility] HospitalComment on above:Performed By: #### TSH, URIC, CMP, LIPID #### [facility] [address] [place] [address] Dr. Candy Miranda nitrogen/Creatinine [Mass ratio]16.7 mg/mgNormalThe [facility]as HospitalComment on above:Performed By: #### TSH, URIC, CMP, LIPID #### [facility] [address] [place] [address] Dr. Candy Muñoz 36-08-4327LFJ4.748 uIU/mLNormal0.358-3.740The [facility]as HospitalComment on above:Performed By: #### TSH, URIC, CMP, LIPID #### [facility] [address] [place] [address] Dr. Candy Block RANDOM W/MICROSCOPICon 52-09-3595YBAVGUFOCBWK SEENNormalNONE SEENMemorial Health SystemComment on above:Performed By: #### UAMIC #### [facility] [address] [place] [address] Dr. Candy Zhangirubin Ql (U)NegativeNormalNEGATIVEMemorial Health System Comment on above:Performed By: #### UAMIC #### [facility] [address] [place] [address] Dr. Candy CortezCASTNONE SEENNormalNONE SEENMemorial Health SystemComment on above:Performed By: #### UAMIC #### [facility] [address] [place] [address] Dr. Candy Pathak (U)CLEARNormalCLEARMemorial Health SystemComment on above: Performed By: #### UAMIC #### [facility] [address] [address] [address] Candy Mantilla (U)LT. YELLOWNormalYELLOWMemorial Health SystemComment on above:Performed By: #### UAMIC #### [facility] [address] [address] [address] Candy CortezCrystals LM Nom (Urine sed)NONE SEENNormalNONE SEENMemorial Health SystemComment on above:Performed By: #### UAMIC #### [facility] [address] [address] [address] Gupta ChangEpithelial cells LM Ql (Urine sed)RARENormalNONE SEEN /RAREMemorial Health SystemComment on above:Performed By: #### UAMIC #### [facility] [address] [place] [address] Dr. Candy CortezGlucose Ql (U)NegativeNormalNEGATIVEMemorial Health SystemComment on above:Performed By: #### UAMIC #### [facility] [address] [place] [address] Dr. Candy CortezHemoglobin Ql (U)NegativeNormalNEGATIVEPeoples Hospital on above:Performed By: #### UAMIC #### [facility] [address] [place] [address] Dr. Candy CortezKetones Ql (U)NegativeNormalNEGATIVEMemorial Health SystemComment on above:Performed By: #### UAMIC #### [facility] [address] [address] [address] Candy CortezLEUKOCYTESNegativeNormalNEGATIVEMemorial Health SystemComment on above:Performed By: #### UAMIC #### [facility] [address] [place] [address] Dr. Candy CortezMUCOUSTRACEAbnormalNONE SEENMemorial Health SystemComment on above:Performed By: #### UAMIC #### [facility] [address] [place] [address] Dr. Candy Cárdenastrblanka Ql (U)NegativeNormalNEGATIVEThe [facility]carawas HospitalComment on above:Performed By: #### UAMIC #### [facility] [address] [place] [address] Dr. Candy CortezpH (U)7.0 [pH]Normal5-9The [facility]carawas HospitalComment on above: Performed By: #### UAMIC #### [facility] [address] [place] [address] Dr. Candy CortezRBCNONE SEENAbnormal0-2The [facility]as HospitalComment on above: Performed By: #### UAMIC #### [facility] [address] [place] [address] Dr. Candy CortezSPEC GRAVITY1.261Foqjvu1.005-<=1.025The [facility]as HospitalComment on above:Performed By: #### UAMIC #### [facility] [address] [place] [address] Dr. Candy Block PROTEINNegativeNormalNEGATIVE/ TRACEThe [facility] Comment on above:Performed By: #### UAMIC #### [facility] [address] [place] [address] Dr. Candy Hutchisonbilinogen Qn (U)0.2 {Nicko'U}/dLNormal0.2 - 1.0The [facility]as HospitalComment on above:Performed By: #### UAMIC #### [facility] [address] [place] [address] Dr. Candy CortezWBCNONE SEENNormalNONE SEENThe [facility]as HospitalComment on above: Performed By: #### UAMIC #### [facility] [address] [place] [address] Dr. Candy CortezURIC ACID SERUMon 51-45-8738Haiyy [Mass/Vol]3.1 mg/dLNormal 2.6-6.0The [facility] HospitalComment on above:Performed By: #### TSH, URIC, CMP, LIPID #### [facility] [address] [place] [address] Dr. Candy Cortez Vital Signs Date TimeVital SignValuePerforming QzndmsxiaNslqbbwc90-65-4781 14:10-0400Body ftiyrt579.56 cmLisa Aichholz [employer]ED [employer]IST-C Work Phone: [phone]10-01-2025 14:10-0400 Body mass index (BMI) [Ratio]23.5 kg/m2Lisa Aichholz [employer]ED [employer]IST-C Work Phone: [phone]10-01-2025 14:10-0400 Body gnihchcpmtm86.1 [degF]Carmela Aichholz [employer]ED [employer]IST-C Work Phone: [phone] [place], [place] 452[address]10-01-2025 14:10-0400 Body .14 kgLisa Aichholz [employer]ED [employer]IST-C Work Phone: [phone] [place], [place] 452[address]10-01-2025 14:10-0400 Diastolic blood vfzhjcca956 mm[Hg]Carmela Aichholz [employer]ED [employer]-C Work Phone: [phone]10-01-2025 14:10-0400 Heart rate78 /minLisa Aichholz [employer]ED [employer]IST-C Work Phone: [phone]10-01-2025 14:10-0400 Respiratory rate18 /minLisa Aichholz [employer]ED [employer]IST-C Work Phone: [phone] [place], [place] [address]210-01-2025 14:10-0400 SaO2% (BldA) [Mass fraction]99 %Carmela Aichholz [employer]ED [employer]IST-C Work Phone: [phone]10-01-2025 14:10-0400 Systolic blood dhhdpoue992 mm[Hg]Carmela Aichholz [employer]ED [employer]IST-C Work Phone: [phone]07-01-2025 14:19-0400 Body mass index (BMI) [Ratio]24 kg/m2Lisa Aichholz [employer]ED [employer] ARTIST Work Phone: [facility] HospitalPulpwvxhoq99-25-0404 14:19-0400Body temperature 98.49 [degF]Carmela Lester [employer]ED [employer] ARTIST Work Phone: [facility] HospitalOikcqgegkj75-91-3315 14:19-0400Body .41 kgCarmela Lester [employer]ED [employer] ARTIST Work Phone: [facility] HospitalTvnmdkndbr15-71-3946 14:19-0400Diastolic blood ylxsfvvt87 mm[Hg]Carmela Lester [employer]ED [employer] ARTIST Work Phone: [facility] HospitalGkgffaiurj72-27-9275 14:19-0400Heart rate78 /min Carmela Lester [employer]ED [employer] ARTIST Work Phone: [facility] HospitalPigchotwfm63-71-0434 14:19-0400Respiratory rate18 /minCarmela Lester [employer]ED GL[employer] ARTIST Work Phone: [facility] HospitalKzjfdomqjn76-75-8116 14:19-6145IcJ6% (BldA) [Mass fraction]98 %Carmela Lester [employer]ED GL[employer] ARTIST Work Phone: [facility] HospitalVhvurxpnjl87-69-0048 14:19-0400Systolic blood mm[Hg]Carmela Lester [employer]ED [employer] ARTIST Work Phone: [facility] HospitalQxmhrclnjc95-61-0901 15:21-0500Body grtanb530.6 cmNicole Saira DO Work Phone: [facility] HospitalXcmfjyjhxp35-19-2496 15:21-0500Body mass index (BMI) [Ratio]27.33 kg/m4Wgjcsj Saira DO Work Phone: [facility] HospitalThvnefeplz36-80-1035 15:21-0500Body .21 kgNicole Saira DO Work Phone: [address] [address]Gtuqmogbfq91-22-5913 15:21-0500Diastolic blood wlkpwtnu99 mm[Hg]Den Saira DO Work Phone: [facility] HospitalDbjwgtejgr38-06-4964 15:21-0500Heart rate78 /min Den Saira DO Work Phone: [facility] HospitalAslekqbeke50-63-1094 15:21-2448UeQ2% (BldA) [Mass fraction]98 %Den Saira DO Work Phone: [facility] HospitalLlhvjbxtwt55-23-9830 15:21-0500Systolic blood wqzaktxp656 mm[Hg]Den Saira DO Work Phone: [facility] HospitalQfwmeyjksd33-26-6249 10:52-0500Body .56 cmLisa Aichholz Work Phone: [phone] [place], [place] 4521111-04-2024 10:52-0500 Body mass index (BMI) [Ratio]27 kg/m2Lisa Aichholz Work Phone: [phone] [place], [place] 4521111-04-2024 10:52-0500 Body ungzxs68.44 kgLisa Aichholz Work Phone: [phone] [place], [place] 4521110-14-2024 10:03-0400 Body szajdq445.56 cmLisa Aichholz Work Phone: [phone] [place], [place] 4521110-14-2024 10:03-0400 Body mass index (BMI) [Ratio]26.9 kg/m2Lisa Aichholz Work Phone: [phone] [place], [place] 4521110-14-2024 10:03-0400 Body .32 kgLisa Aichholz Work Phone: [phone] [place], [place] 4521109-19-2024 12:58-0400 Body bdangc067.56 cmLisa Aichholz Work Phone: [phone] [place], [place] 4521109-19-2024 12:58-0400 Body mass index (BMI) [Ratio]27 kg/m2Lisa Aichholz Work Phone: [phone] [place], [place] 45[address]109-19-2024 12:58-0400 Body .38 kgLisa Aichholz Work Phone: [phone] [place], [place] 45[address]108-15-2024 13:18-0400 Body yxksxg78.76 kgLisa Aichholz Work Phone: [facility]07-25-2024 14:11-0400 Body tlyirs85.76 kgPromedica Flower Hospital Encounters Encounter DateEncounter TypeCare ProviderFacilityStart: 12-12-2024 End: 51-92-0876pgcryrulhfRsjh J Aichholz [employer]ED [employer]IST-C Work Phone: [facility] Work Phone: Start: 12-12-2024 End: 32-68-5242Jgycjzr encounter procedureLisa Karlene Lester [employer]ED [employer] ARTIST-C-[facility] Work Phone: Start: 10-17-2024 End: 77-55-1697BmnhjfZtmb Aichholz STAINED GLASS ARTIST Work Phone: noms CWM FMComment on above:Bilateral hand painStart: 10-16-2024 End: 23-68-5637ApoqzqMhhm Aichholz [employer]ED GLASS ARTIST Work Phone: noms CWM FMComment on above:Bilateral hand pain (Primary Dx)Start: 10-10-2024 End: 80-93-3124Uzqamyooa Result EncounterLisa Popeholz [employer]ED [employer] ARTIST Work Phone: noms External Department UnsolicitedStart: 10-10-2024 End: 90-99-8255Ybarreama Result EncounterLisa Popeholz [employer]ED [employer] ARTIST Work Phone: noms External Department UnsolicitedStart: 09-11-2024 End: 92-18-8264Imejai outpatient visit 25 minutesLisa Rossz [employer]ED GLASS ARTIST Work Phone: noms CWM FMComment on above:Primary hypertension (Primary Dx); Coronary artery disease involving [place] coronary artery of [place] heart without angina pectoris ; Hypothyroidism (acquired) ; Cigarette nicotine dependence without complication; Mixed hyperlipidemia ; Essential hypertension ; Trapezius muscle spasm; Bilateral hand pain; Breast cancer screening declinedStart: 09-11-2024 End: 01-31-8963Etvduw flowsheetCarmela Rossz STAINED GLASS ARTIST Work Phone: NOGD CWM FMStart: 09-11-2024 End: 51-94-2429Pktcen flowsheetLisa Aichholz [employer]ED GL[employer] ARTIST Work Phone: noms CWM FMStart: 09-11-2024 End: 45-71-0329ucgvmvlarsPSMP AICHHOLZNot AvailableStart: 09-07-2024 End: 19-69-0899Kvnfdhlny Result EncounterLisa Aichholz [employer]ED [employer] ARTIST Work Phone: noms External Department UnsolicitedStart: 09-07-2024 End: 09-49-5434Qurluesld Result EncounterLisa Aichholz [employer]ED GLASS ARTIST Work Phone: noms External Department UnsolicitedStart: 08-20-2024 End: 59-28-4231ZfyvprFfbq Aichholz STAINED GLASS ARTIST Work Phone: noms CWM FMComment on above:Essential hypertension (CMS/HCC); Primary hypertension (CMS/HCC); Coronary artery disease involving [place] coronary artery of [place] heart without angina pectoris (CMS/HCC); Hypothyroidism (acquired) (CMS/HCC)Start: 07-09-2024 End: 05-62-6771rhephmiipmWaqdkey Vytautas Giedraitis MDFacility:PM Yves Start: 06-04-2024 End: 26-69-4081fliulumwqsCBMZ [facility] Centertart: 04-09-2024 End: 01-81-6849Fhqwggx encounter procedureNicole Saira DO Work Phone: aNA SANDUSKYComment on above:Idiopathic peripheral neuropathyStart: 04-09-2024 End: 83-13-7176qxldtlsdtpNZQEBF DANNERNot AvailableStart: 04-09-2024 End: 17-87-9935Vlkqvz flowsheetNicole Saira DO Work Phone: aNA SANDUSKYStart: 04-09-2024 End: 16-23-7593Wuvczn flowsheetNicole Saira DO Work Phone: aNA SANDUSKYStart: 03-31-2024 End: 78-22-4606Bjipvwslv Result EncounterNicole Saira DO Work Phone: noms External Department UnsolicitedStart: 03-31-2024 End: 30-41-0480Akswjfdhb Result EncounterNicole Saira DO Work Phone: noms External Department UnsolicitedStart: 03-26-2024 End: 88-29-4414Prllxl consultation new/estab patient 60 minNicole Saira DO Work Phone: aNA BELLEVUEComment on above:Idiopathic peripheral neuropathy (Primary Dx); Numbness and tingling; Arthralgia, unspecified jointStart: 03-26-2024 End: 19-11-3684diwjljfhlcEWUARN DANNERNot AvailableStart: 03-26-2024 End: 73-42-0426Lntcev flowsheetNicole Saira DO Work Phone: aNA BELLEVUEStart: 03-26-2024 End: 69-88-5889Dmsmkv flowsheetNicole Saira DO Work Phone: ana BELLEVUEStart: 03-13-2024 End: 34-36-2045KxlhodAxhi Aichholz STAINED GLASS ARTIST Work Phone: NOMS CWM FMComment on above:Essential hypertension (CMS/HCC)Start: 03-02-2024 End: 17-48-5565ordsdowmxuGznu N BialaskiFacility:[facility] Hospitaltart: 02-29-2024 End: 30-80-8250TmmhrgFdhc Aichholz STAINED GLASS ARTIST Work Phone: NOMS CWM FMComment on above:Coronary artery disease involving [place] coronary artery of [place] heart without angina pectoris (CM S/HCC)Start: 02-07-2024 End: 63-43-6552Ujbbrccco encounterLisa Lester ST[employer]ED GLASS ARTIST Work Phone: NOMS CWM FMStart: 02-01-2024 End: 86-31-0718Dllowdc encounter procedureCarmela Lester Work Phone: [facility] Work Phone: Start: 02-01-2024 End: 50-59-2342yypcapwirmAvlv J Aichholz Work Phone: [facility] Work Phone: Start: 01-16-2024 End: 71-64-1681Rbgjbdl encounter procedureLisa Aichholz Work Phone: [facility] Work Phone: start: 01-13-2024 End: 91-66-7824Esupyoa encounter procedureLisa Aichholz Work Phone: [facility] [place] Work Phone: Start: 01-13-2024 End: 96-70-7062lrgqrkzegsYyge J Aichholz Work Phone: [facility] Work Phone: Start: 12-26-2023 End: 78-17-3378mzxorwfjukUzud J Aichholz Work Phone: [facility] Work Phone: Start: 12-26-2023 End: 84-31-6554Vvgowzx encounter procedureLisa Aichholz Work Phone: [facility] Work Phone: start: 12-12-2023 End: 42-25-0849ykwjocnlvmEjlkumb Vytautas Giedraitis MDFacility:PM Yves Start: 12-01-2023 End: 88-57-8869hnzamezvfrKqcx J Aichholz Work Phone: [facility] Work Phone: Start: 12-01-2023 End: 30-81-1677Avfdiyn encounter procedureLisa Aichholz Work Phone: [facility] Work Phone: start: 11-24-2023 End: 71-63-9264LglugpZcrr Osielhholz STAINED GLASS ARTIST Work Phone: noms CWM FMComment on above:Coronary artery disease involving [place] coronary artery of [place] heart without angina pectoris (CM S/HCC)Start: 11-22-2023 End: 16-51-5579HgidnxJmrl Aichholz STAINED GLASS ARTIST Work Phone: noms CWM FMComment on above:Coronary artery disease involving [place] coronary artery of [place] heart without angina pectoris (CM S/HCC); Neuropathy; Essential hypertension (CMS/HCC); Hypothyroidism (acquired) (CMS/HCC); Primary hypertension (CMS/HCC); Trapezius muscle spasmStart: 11-21-2023 End: 39-15-6644bixwfmuffgOclxoyi Vytautas Giedraitis MDFacility:[facility] [place] Start: 10-31-2023 End: 60-73-6817hhpmnwjsgbSsvqcrx Vytautas Giedraitis MDFacility:[facility] Start: 10-27-2023 End: 43-43-6421bkzijmwnsjZzsm J Osielhinocencio Work Phone: [facility] Work Phone: Start: 10-27-2023 End: 36-07-4006Ryvllkq encounter procedureLisa Aichholz Work Phone: [facility] Work Phone: start: 10-27-2023 End: 13-90-3332Gohbsfq encounter procedureLisa Aichholz Work Phone: [facility] Work Phone: Start: 10-27-2023 End: 39-38-4195ftiylaaxinYxrb J Aichholz Work Phone: [facility] Work Phone: Start: 10-06-2023 End: 92-12-6412ecvhurhteeNzcaqwyqrOhioHealth Work Phone: Start: 10-06-2023 End: 21-44-8875Skrqifs encounter procedureHighsmith[facility] Neurosurgery Work Phone: start: 09-29-2023 End: 93-18-4912vddzpyfyrmDOHZZGEQJEF HASSETTNot AvailableStart: 09-05-2023 End: 53-17-9971Gpcjlivuw Result EncounterLisa Aichholz ST[employer]ED GLASS ARTIST Work Phone: noms External Department UnsolicitedStart: 09-05-2023 End: 35-58-0315Epwencshn Result EncounterLisa Aichholz ST[employer]ED GLASS ARTIST Work Phone: noms External Department UnsolicitedStart: 06-08-2023 End: 60-07-5554iwxopbxllsMRNECommunity Regional Medical Centertart: 05-27-2023 End: 96-89-3970Xqhjrpfyk Result EncounterLisa Aichholz STAINED GLASS ARTIST Work Phone: noms External Department UnsolicitedStart: 05-27-2023 End: 28-64-4056Wjeeiyfbs Result EncounterLisa Aichholz ST[employer]ED GLASS ARTIST Work Phone: noms External Department UnsolicitedStart: 07-22-2022 End: 68-92-3538xiniwpohstPAT CARMELA AICHHOLZFacility:B3Yypqz: 07-05-2022 End: 30-95-5495qoxbufiwseFXI CARMELA AICHHOLZFacility:S0[place]: 05-10-2022 End: 77-47-7584wckokqtkdhJFQ CARMELA AICHHOLZFacility:C6Jbwbz: 01-22-2022 End: 09-57-6016pztwwxdkskHQV CARMELA AICHHOLZFacility:H1 Procedures DateProcedureProcedure DetailPerforming ClinicianStart: 63-56-1228Weehl hand 2 viewsLisa Aichholz STAINED GLASS ARTIST Work Phone: Start: 76-07-0556Jbybjq cancer screening declined Breast cancer screening declinedLisa Aichholz ST[employer]ED GLASS ARTIST Work Phone: Start: 32-68-7015LSA CBC WITH AUTO DIFFLisa Aichholz STAINED GLASS ARTIST Work Phone: Start: 04-09-2024 End: 63-80-2740Vllewa emg ea extremty w/paraspinl area completeNicole Saira DO Work Phone: Start: 83-96-0158PID FOLIC ACIDNicole Saira DO Work Phone: Start: 05-95-1649XZC of cervical spine without contrastLisa Aichholz Work Phone: Start: 78-68-3701D-ray of cervical spineLisa Aichholz Work Phone: Start: 72-87-8354Hfr spinal canal cervical w/o contrast matrlLisa Aichmorenaz [employer]IST Work Phone: Start: 12-06-8783VW ECHO DOPPLER COMPLETELisa Aichholz [employer] Work Phone: Breast cancer screening declinedBreast cancer screening declinedLisa Trevon [employer] ARTIST-C Work Phone: Plan of Treatment DateCare ActivityDetailAuthorStart: 61-01-5446Sushyfycf for malignant neoplasm of colonNOMS HealthcareStart: 12-12-2024 End: 04-91-5481Gwdcolz encounter nvcapigeo50/01/2025 2:00 PM EDT Office Visit [facility] [address] [place] [id number] Carmela Lester NP [address] [place] [phone] [facility] FMStart: 74-81-5338Oyxoygoug vaccinationNOMS HealthcareStart: 09-11-2024 End: 44-59-9838Eswmuvn encounter procedureNOMS CWM FMComment on above:ERICK (obstructive sleep apnea) (Primary Dx); Coronary artery disease involving [place] coronary artery of [place] heart without angina pectoris ; Primary hypertension ; Hypothyroidism (acquired) ; Cigarette nicotine dependence without complication; Mixed hyperlipidemiaStart: 09-11-2024 End: 41-64-3838OH Hand - bilateral 2 ViewsXR hand 1 or 2 views bilateral Imaging Routine Bilateral hand pain Expected: 09/11/2024 (Approximate), Expires: 09/11/2025[facility] Work Phone: Comment on above:Expected: 09/11/2024 (Approximate), Expires: 09/11/2025Start: 08-20-2024 End: 31-55-7510WNP W Auto Differential panel - BloodCBC and differential Lab Routine Coronary artery disease involving [place] coronary artery of [place] without angina pectoris (CMS/HCC) Expected: 08/20/2024 (Approximate), Expires: 08/20/2025[facility] Work Phone: Comment on above:Expected: 08/20/2024 (Approximate), Expires: 08/20/2025Start: 08-20-2024 End: 91-99-1263Ncowzpvbenfah metabolic 2000 panel - Serum or PlasmaComprehensive metabolic panel Lab Routine Essential hypertension (CMS/HCC) Coronary artery disease involving [place] coronary artery of [place] heart without angina pectoris (CMS/HCC) Expected: 08/20/2024 (Approximate), Expires: 08/20/2025[facility] HealthcareComment on above:Expected: 08/20/2024 (Approximate), Expires: 08/20/2025Start: 08-20-2024 End: 57-44-5248Didhp 1996 panel - Serum or PlasmaLipid panel Lab Routine Coronary artery disease involving [place] coronary artery of [place] heart without angina pectoris (CMS/HCC) Expected: 08/20/2024 (Approximate), Expires: 08/20/2025[facility] HealthcareComment on above:Expected: 08/20/2024 (Approximate), Expires: 08/20/2025Start: 08-20-2024 End: 82-07-7972Sdbakzbtphjf/Creatinine panel in random UrineMicroalbumin / creatinine, urine ratio Lab Routine Essential hypertension (CMS/HCC) Expected: 08/20/2024 (Approximate), Expires: 08/20/2025[facility] HealthcareComment on above: Expected: 08/20/2024 (Approximate), Expires: 08/20/2025Start: 08-20-2024 End: 42-66-5479Tlwgvfzgujh [Units/volume] in Serum or PlasmaTSH Lab Routine Hypothyroidism (acquired) ([facility]) Expected: 08/20/2024 (Approximate), Expires: 08/20/2025[facility] HealthcareComment on above:Expected: 08/20/2024 (Approximate), Expires: 08/20/2025Start: 08-20-2024 End: 39-49-5870Hahsewoqp (T4) free [Mass/volume] in Serum or PlasmaT4, free Lab Routine Hypothyroidism (acquired) ([facility]) Expected: 08/20/2024 (Approximate), Expires: 08/20/2025[facility] HealthcareComment on above:Expected: 08/20/2024 (Approximate), Expires: 08/20/2025Start: 08-20-2024 End: 73-01-7749Gzvutqvjua complete panel - UrineUrinalysis with reflex microscopic (clean catch) Lab Routine Essential hypertension ([facility]) Expected: 08/20/2024 (Approximate), Expires: 08/20/2025[facility] HealthcareComment on above: Expected: 08/20/2024 (Approximate), Expires: 08/20/2025Start: 05-23-2024 End: 30-84-3522Zjcbdbd encounter bqvjgkvso99/12/2025 1:15 PM EDT Office Visit GINA SANCHEZ [address] [place] [phone] Den Chávez DO [address] [place] [id number] GINA NAYELItart: 05-17-2024 End: 70-67-3931Wtqthxf encounter fhhnlxirm22/06/2025 1:15 PM EST Office Visit GINA YVES [address] [place] [phone] Den Chávez DO [address] [place] [address] GINA TYLERtart: 04-09-2024 End: 50-33-5361Nwqnmdt encounter procedureGINA BURGOSYComment on above:Arrived Start: 03-26-2024 End: 40-72-6635Fntglse encounter procedureNOMS SANCHEZ STATE ROUTEComment on above:ArrivedStart: 03-26-2024 End: 95-83-7905Vwygbbybx (Vitamin B12) [Mass/volume] in Serum or PlasmaVitamin B12 Lab Routine Idiopathic peripheral neuropathy Expected: 03/26/2024 (Approximate), Expires: 03/26/2025[facility] Work Phone: comment on above:Expected: 03/26/2024 (Approximate), Expires: 03/26/2025Start: 03-26-2024 End: 57-50-9280XWN 2 ExtremitiesEMG 2 Extremities Neurology Routine Idiopathic peripheral neuropathy Expected: 03/26/2024 (Approximate), Expires: 03/26/2025 [facility] HealthcareComment on above:Expected: 03/26/2024 (Approximate), Expires: 03/26/2025Start: 03-26-2024 End: 15-87-5114Kxywtx [Mass/volume] in Serum or PlasmaFolate Lab Routine Idiopathic peripheral neuropathy Expected: 03/26/2024 (Approximate), Expires: 03/26/2025[facility] HealthcareComment on above:Expected: 03/26/2024 (Approximate), Expires: 03/26/2025Start: 03-26-2024 End: 83-07-2369Qbmuzar Ab [Titer] in Serum by ImmunofluorescenceANA Lab Routine Idiopathic peripheral neuropathy Expected: 03/26/2024 (Approximate), Expires: 03/26/2025[facility] HealthcareComment on above:Expected: 03/26/2024 (Approximate), Expires: 03/26/2025Start: 03-26-2024 End: 43-28-8982AMS 9-10 NervesNVC 9-10 Nerves Neurology Routine Idiopathic peripheral neuropathy Expected: 03/26/2024 (Approximate), Expires: 03/26/2025 [facility] HealthcareComment on above:Expected: 03/26/2024 (Approximate), Expires: 03/26/2025Start: 03-26-2024 End: 52-42-7411Lpjnirh electrophoresis, serumProtein electrophoresis, serum Lab Routine Idiopathic peripheral neuropathy Expected: 03/26/2024 (Approximate), Expires: 03/26/2025[facility] HealthcareComment on above:Expected: 03/26/2024 (Approximate), Expires: 03/26/2025Start: 03-26-2024 End: 55-71-3690Ibcqravbda factor [Units/volume] in Serum or PlasmaRheumatoid factor Lab Routine Idiopathic peripheral neuropathy Expected: 03/26/2024 (Approximate), Expires: 03/26/2025[facility] HealthcareComment on above:Expected: 03/26/2024 (Approximate), Expires: 03/26/2025Start: 03-20-2024 End: 74-46-6707Yhillwk encounter xkouosxgu04/07/2025 1:20 PM EST Office Visit [facility] [address] [place] [address] Carmela Lester, STAINED GLASS ARTIST [address] [place] [address] [facility] FMStart: 17-98-9131Oznebjkvi vaccinationInfluenza Vaccine (#1)[facility] HealthcareStart: 33-68-7494W-ray of cervical spineXR cerv spine AP/LAT/FLX/EXTElyria Memorial Hospitaltart: 40-94-4360GD Cervical spine 4 ViewsElyria Memorial Hospitaltart: 89-15-4227Lpndvjt referral [facility] Work Phone: Start: 14-81-1058Zhdgerlvo for malignant neoplasm of cervixHPV/CotestNOMS HealthcareStart: 78-65-5134Vjvmsyajz for malignant neoplasm of cervixPap SmearNOMS HealthcareStart: 93-97-1780Qpcdwbvwa for malignant neoplasm of colonNOMS HealthcareElectromyographyPromedica Flower HospitalMR Cervical spine WO [facility] HospitalPatient referralMercy Health St[facility] Work Phone: XR Cervical spine 4 [facility] Immunizations Immunization DateImmunizationNotesCare WdrazeslFzkjvkkl37-72-1283rmhctrvgn, injectable, quadrivalent, preservative freeLisa Aichholz ST[employer]ED GLASS ARTIST Work Phone: [facility] HospitalHvaesbgwdk15-17-7483Lfhftxaluzmd Conjugate PCV 20 Carmela Aichholz ST[employer]ED GLASS ARTIST Work Phone: [facility] HospitalPykbekpcfk97-67-9216eshwchytb virus vaccine, unspecified formulationLisa Aichholz STAINED GLASS ARTIST Work Phone: [facility] HospitalEawxswlzop86-56-0486jwnibcqaf, injectable, quadrivalent, preservative freeLisa Aichholz STAINED GLASS ARTIST Work Phone: [facility] HospitalCqfdckynvp64-98-9613vchbxzgqz, injectable, quadrivalent, preservative freeLisa Aichholz STAINED GLASS ARTIST Work Phone: [facility] HospitalNsmyteqbou98-51-0934mvjierhoq, injectable, quadrivalent, preservative freeLisa Aichholz STAINED GLASS ARTIST Work Phone: [facility] HospitalDkypgghobx53-45-1506hxgbeugmg, injectable, quadrivalent, preservative freeLisa Aichholz STAINED GLASS ARTIST Work Phone: [facility] HospitalLqplclsxrh30-35-7281ijgcuntgzpzm polysaccharide vaccine, 23 valentLisa Aichholz STAINED GLASS ARTIST Work Phone: [facility] HospitalLmdtgmlvra18-83-0444xsrsuyzsx, injectable, quadrivalent, preservative freeLisa Aichholz STAINED GLASS ARTIST Work Phone: [facility] Payers DatePayer CategoryPayerPolicy [id number] Health InsuranceMEDICAL MUTUAL Member Subscriber Plan / Payer (Effective 2022- Present) Name: Diane Mendoza Relation to Subscriber: Spouse Name: JOSE MARIA MENDOZA Date of : 1960 Address: [address] [place] [address] Payer ID: Not on file Gr p ID: [id number] Type: Not on file Address: [address] [place] [id number] 1.2.840.574336.1.13.693.2.7.3.921[id number] 2.840.1.419612.3.57[id number] 2.840.1.089629.3.57[id number] 2.840.1.109938.3.57[id number] 2.840.1.797665.3.57[id number] 2.840.1.265072.3.57[id number] 2.840.1.793199.3.57[id number] 2.840.1.955105.3.57[id number] 2.840.1.133513.3.57[id number] 2.840.1.801660.3.57[id number] 2.840.1.987916.3.57[id number] 2.16.840.1.489124.3.57[id number] 2..840.1.802687.3.57[id number] 2.16.840.1.6[id number] 2.840.1.634625.3.579.2.531 [id number] 2.16.840.1.2[id number] 2.840.1.600698.3.579.2.531 Social History DateTypeDetailFacilityTobacco smoking status NHISUnknown if ever smokedMercy Health St. [facility]'S [facility] Work Phone: Start: 61-87-2334Jfp Assigned At BirthFemalKettering Health Main CampusTobacco smoking status NHISUnknown if ever smoked [facility] Work Phone: Start: 73-04-5782SuqSncrocu sex unknown (finding) [facility] Hospitaltart: 20-26-3028Nbmkaja smoking status NHIS Smokes tobacco dailyNOMS HealthcareHistory of tobacco useCigarette SmokerNOMS HealthcareStart: 02-07-2023 End: 46-08-7228Hvgapdyqkz smoked current (pack per day) - Zpdxanxo5YTUY HealthcareStart: 07-11-2023 End: 49-99-1094Vqinjcjol beverage intakeLifetime non-drinker (finding)[facility] HealthcareStart: 05-10-2023 End: 90-50-5909Emqrwik use panelNOMS HealthcareStart: 47-77-5170Bzz assigned at birthNot on fileNOMS HealthcareStart: 40-77-5179Amxegbk smoking status NHIS Ex-smokerNOMS HealthcareHistory of tobacco useCurrent smokerN[facility]S Healthcare Start: 14-07-9373Fbhhxym use and exposureSmokeless tobacco non-userNOMS HealthcareSexFemale (finding)[facility] Hospitaltart: 05-26-2022 SexFeMur[facility] Healthcare Functional Status ImykDvgxevkytcDcgbutRmkftarb68-28-8824Dkfgnfq Health Questionnaire 2 item (PHQ- 2) [Reported][facility] Clinical Notes 06-08-2023 to 09-11-2024 Note Date & HtnaSeqoLwnjqqaa38-36-3853 History of Present illness Narrative* Carmela Lester [...] no compliance problems. Hypertensive end-organ damage includes CAD/AZ. There is no history of PVD. SUBJECTIVE: [...] slow position changes Current meds: b jose, shirin, and imdur , verapamil Relevant Medications [...] Current meds: statin, zetia, shirin, imdur, b jose , verapamil, and prn [...] of the risks of continued smoking: stroke, AZ, all forms of cancer, lung disease, and [...] verapamil (Calan) 80 MG tablet * Carmela Lester NP - 09/11/2024 7:24 AM EDTAssociated Problem(s): Hyperlipidemia On statin and zetia Check labs yearly and prn dose changes * Carmela Lester NP - 09/11/2024 7:24 AM EDTAssociated Problem(s): Cigarette nicotine dependence without complication The patient has been advised of the risks of continued smoking: stroke, AZ, all forms of cancer, lung disease, and [...] slow position changes Current meds: b jose, shirin, and imdur , verapamil * Carmela Lester NP - 09/11/2024 7:21 AM EDTAssociated Problem(s): CAD (coronary artery disease) Current meds: statin, zetia, shirin, imdur, b jose , verapamil, and prn [...] that manages your ERICK: documented in this [facility]07-01-2025 Instructions* Patient Instructions* Carmela Lester NP - 09/11/2024 2:20 PM EDT Check xrays of the hands Add baby aspirin 81mg daily documented in this [facility]06-09-2025 Telephone encounter Note* Telephone Encounter - Carmela [...] order please getting this completed CICI [place] [facility] HospitalKbrbbmkrjo76-23-9684 Miscellaneous Notes* Telephone Encounter - Carmela Lester [...] this completed CICI LA documented in this encounterKindred HospitalBnkqhssdfk23-16-8837 [facility] Chief Complaint: [...] management; add calc (more content not included)... [facility]01-27-2025 History of Present illness Narrative* Walker Nicole, ARRT - 04/09/2024 4:00 PM EST Images from the original note were not included. Reason for Appointment: EMG Patient: Diane Mendoza : 1970 EMG Computer: [employer] Referring Physician: Dr. Den Chávez EMG: BLE fireboat operator: Walker Nicole RT(R) Office Location: [place] Reason for EMG: c/o numbness/tingling in bilateral feet/lower legs, low back pain that radiates down bilateral legs L>R. Hx of surgery to left ankle. No hx of DM. Taking ASA. Comments: Procedure was explained to the patient who expressed understanding. Patient appeared to have tolerated the test well despite some discomfort due to the nature of the test. documented in this encounterKindred HospitalRwmgdplzge03-49-9517 History of Present illness Narrative* Den Chávez DO - 03/26/2024 4:00 PM EST Images from the original note were not included. Chief Complaint Patient presents with Numbness Tingling Subjective Diane Mendoza, 54 y.o., female HPI Paresthesia of skin - EMG [place] [facility] as well as our office, MRI brain [...] symptoms. She had EMG here and at [facility]. Borderline right CTS. She had the EMG 2020 BLE She is on the neurontin 900mb bid Past Medical History: Diagnosis Date Abnormal ankle brachial index (LYSSA) 05/10/2023 Asymptomatic microscopic hematuria 05/10/2023 Back pain, chronic 05/10/2023 Bilateral hand pain 05/10/2023 Bronchitis 02/07/2023 CAD (coronary artery disease) ([facility]) 05/10/2023 Closed traumatic minimally displaced fracture of proximal end of fibula with routine healing 05/10/2023 Fatigue GERD (gastroesophageal reflux disease) 05/10/2023 Gout 05/09/2023 History of irregular menstrual cycles Hyperlipidemia ([facility]) Joint pain Left ankle pain Loud snoring 05/10/2023 Lumbosacral radiculopathy at S1 05/10/2023 Menorrhagia 05/10/2023 Myocardial infarction ([facility]) 05/10/2023 Neuropathy 05/10/2023 Paresthesia of foot Peripheral artery disease ([facility]) 05/10/2023 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[facility]) 05/10/2023 Seasonal allergies 05/10/2023 [...] upper extremity in September most recently at [facility] that was not entirely convincing for any [...] to clinic: 3 weeks documented in this [facility]11-26-2024 Telephone encounter Note* Telephone Encounter - Carmela Lester NP - 02/07/2024 8:35 PM EST Please call and schedule a fu appt for pt [place] [facility]red HospitalXdbuzesesp04-05-2470 Miscellaneous Notes* Telephone Encounter - Carmela Lester NP - 02/07/2024 8:35 PM EST Please call and schedule a fu appt for pt [place] documented in this [facility]09-19-2024 Evaluation note* Diagnosis Onset Date Resolution Status Admit Date Arm pain acuteSeptember 2023 12:52pmCervical radiculopathyacuteSept2023 12:52pmNeck painacuteSeptember 2023 12:52pmCervical radiculopathyacute December 26, 2023 9:58amUlnar neuropathy at elbowacuteNov2023 10:50am [facility] Work Phone: 1(371) 917-516303-27-2024 [facility] Chief Complaint: New [...] he is to underg (more content not included)...[facility] Evaluation noteNo assessment information availableMercy Health St. [facility]S [facility] Center Work Phone: Evaluation note* Diagnosis Onset Date Resolution Status Arm pain acuteCervical radiculopathyacuteUlnar neuropathy at elbowacuteArm painacuteNeck painacuteUlnar neuropathy at elbowacute [facility] Work Phone: Evaluation note* Diagnosis Onset Date Resolution Status Arm pain acuteCervical radiculopathyacuteUlnar neuropathy at elbowacuteArm painacuteNeck painacuteUlnar neuropathy at elbowacuteArm painacuteCervical radiculopathyacute Neck painacuteCervical radiculopathyacute [facility] Work Phone: Evaluation note* Diagnosis Onset Date Resolution Status Arm pain acuteNeck painacuteUlnar neuropathy at elbowacuteArm painacuteCervical radiculopathyacuteNeck painacuteCervical radiculopathyacute [facility] Work Phone: Evaluation note* Diagnosis Coronary artery disease involving [place] coronary artery of [place] heart without angina pectoris (CMS/HCC) documented in this encounter [facility] HealthcareEvaluation note* Diagnosis Colon cancer screening- Primary Special screening for malignant neoplasms, colon Atherosclerosis of [place] coronary artery without angina pectoris, unspecified whether [place] or transplanted heart (CMS/HCC) Essential hypertension (CMS/HCC) Unspecified essential hypertension Hypothyroidism (acquired) (CMS/HCC) Unspecified hypothyroidism Idiopathic gout, unspecified chronicity, unspecified site Bronchitis Bronchitis, not specified as acute or chronic Essential hypertension (CMS/HCC)- Primary Unspecified essential hypertension Coronary artery disease involving [place] coronary artery of [place] heart without angina pectoris (CMS/HCC) Trapezius muscle spasm Tobacco user Tobacco use disorder Essential hypertension (CMS/HCC)- Primary Unspecified essential hypertension Coronary artery disease involving [place] coronary artery of [place] heart without angina pectoris (CMS/HCC) Trapezius muscle spasm Tobacco user Tobacco use disorder Cervical neck pain with evidence of disc disease- Primary Other and unspecified disc disorder of cervical region Trapezius muscle spasm Tobacco user Tobacco use disorder Cervical stenosis of spinal canal- Primary Spinal stenosis in cervical region Cervical radiculopathy Brachial neuritis or radiculitis nos Coronary artery disease involving [place] coronary artery of [place] heart without angina pectoris (CMS/HCC) documented in this encounter [facility] HealthcareEvaluation note* Diagnosis Coronary artery disease involving [place] coronary artery of [place] heart without angina pectoris (CMS/HCC) Neuropathy Mononeuritis of unspecified site Essential hypertension (CMS/HCC) Unspecified essential hypertension Hypothyroidism (acquired) (CMS/HCC) Unspecified hypothyroidism Primary hypertension (CMS/HCC) Unspecified essential hypertension Trapezius muscle spasm documented in this encounter [facility] HealthcareEvaluation note* Diagnosis Colon cancer screening- Primary Special screening for malignant neoplasms, colon Atherosclerosis of [place] coronary artery without angina pectoris, unspecified whether [place] or transplanted heart (CMS/HCC) Essential hypertension (CMS/HCC) Unspecified essential hypertension Hypothyroidism (acquired) (CMS/HCC) Unspecified hypothyroidism Idiopathic gout, unspecified chronicity, unspecified site Bronchitis Bronchitis, not specified as acute or chronic Essential hypertension (CMS/HCC)- Primary Unspecified essential hypertension Coronary artery disease involving [place] coronary artery of [place] heart without angina pectoris (CMS/HCC) Trapezius muscle spasm Tobacco user Tobacco use disorder Essential hypertension (CMS/HCC)- Primary Unspecified essential hypertension Coronary artery disease involving [place] coronary artery of [place] heart without angina pectoris (CMS/HCC) Trapezius muscle [...] screening for malignant neoplasms, colon Atherosclerosis of [place] coronary artery without angina pectoris, unspecified whether [place] or transplanted heart (CMS/HCC) Essential hypertension (CMS/HCC) Unspecified essential hypertension Hypothyroidism (acquired) ([facility]) Unspecified hypothyroidism Idiopathic gout, unspecified chronicity, unspecified site Bronchitis Bronchitis, not specified as acute or chronic Essential hypertension (CMS/HCC)- Primary Unspecified essential hypertension Coronary artery disease involving [place] coronary artery of [place] heart without angina pectoris (CMS/HCC) Trapezius muscle spasm Tobacco user Tobacco use disorder Essential hypertension (CMS/HCC)- Primary Unspecified essential hypertension Coronary artery disease involving [place] coronary artery of [place] heart without angina pectoris (CMS/HCC) Trapezius muscle [...] screening for malignant neoplasms, colon Atherosclerosis of [place] coronary artery without angina pectoris, unspecified whether [place] or transplanted heart (CMS/HCC) Essential hypertension (CMS/HCC) Unspecified essential hypertension Hypothyroidism (acquired) ([facility]) Unspecified hypothyroidism Idiopathic gout, unspecified chronicity, unspecified site Bronchitis Bronchitis, not specified as acute or chronic Essential hypertension (CMS/HCC)- Primary Unspecified essential hypertension Coronary artery disease involving [place] coronary artery of [place] heart without angina pectoris (CMS/HCC) Trapezius muscle spasm Tobacco user Tobacco use disorder Essential hypertension (CMS/HCC)- Primary Unspecified essential hypertension Coronary artery disease involving [place] coronary artery of [place] heart without angina pectoris (CMS/HCC) Trapezius muscle [...] screening for malignant neoplasms, colon Atherosclerosis of [place] coronary artery without angina pectoris, unspecified whether [place] or transplanted heart (CMS/HCC) Essential hypertension (CMS/HCC) Unspecified essential hypertension Hypothyroidism (acquired) (CMS/HCC) Unspecified hypothyroidism Idiopathic gout, unspecified chronicity, unspecified site Bronchitis Bronchitis, not specified as acute or chronic Essential hypertension (CMS/HCC)- Primary Unspecified essential hypertension Coronary artery disease involving [place] coronary artery of [place] heart without angina pectoris (CMS/HCC) Trapezius muscle spasm Tobacco user Tobacco use disorder Essential hypertension (CMS/HCC)- Primary Unspecified essential hypertension Coronary artery disease involving [place] coronary artery of [place] heart without angina pectoris (CMS/HCC) Trapezius muscle [...] Unspecified essential hypertension Coronary artery disease involving [place] coronary artery of [place] heart without angina pectoris (CMS/HCC) Hypothyroidism (acquired) ([facility]) Unspecified hypothyroidism documented in this encounter [facility] HealthcareEvaluation note* Diagnosis Colon cancer screening- Primary Special screening for malignant neoplasms, colon Atherosclerosis of [place] coronary artery without angina pectoris, unspecified whether [place] or transplanted heart Essential hypertension Unspecified essential hypertension Hypothyroidism (acquired) Unspecified hypothyroidism Idiopathic gout, unspecified chronicity, unspecified site Bronchitis Bronchitis, not specified as acute or chronic Essential hypertension- Primary Unspecified essential hypertension Coronary artery disease involving [place] coronary artery of [place] heart without angina pectoris Trapezius muscle spasm Tobacco user Tobacco use disorder Essential hypertension- Primary Unspecified essential hypertension Coronary artery disease involving [place] coronary artery of [place] heart without angina pectoris Trapezius muscle spasm [...] Unspecified essential hypertension Coronary artery disease involving [place] coronary artery of [place] heart without angina pectoris Hypothyroidism (acquired) Unspecified hypothyroidism Cigarette nicotine dependence without complication Mixed hyperlipidemia Mixed hyperlipidemia Essential hypertension Unspecified essential hypertension Trapezius muscle spasm Bilateral hand pain Breast cancer screening declined documented [facility] Diagnosis Colon cancer screening- Primary Special screening for malignant neoplasms, colon Atherosclerosis of [place] coronary artery without angina pectoris, unspecified whether [place] or transplanted heart Essential hypertension Unspecified essential hypertension Hypothyroidism (acquired) Unspecified hypothyroidism Idiopathic gout, unspecified chronicity, unspecified site Bronchitis Bronchitis, not specified as acute or chronic Essential hypertension- Primary Unspecified essential hypertension Coronary artery disease involving [place] coronary artery of [place] heart without angina pectoris Trapezius muscle spasm Tobacco user Tobacco use disorder Essential hypertension- Primary Unspecified essential hypertension Coronary artery disease involving [place] coronary artery of [place] heart without angina pectoris Trapezius muscle spasm [...] Unspecified essential hypertension Coronary artery disease involving [place] coronary artery of [place] heart without angina pectoris Hypothyroidism (acquired) Unspecified hypothyroidism Cigarette nicotine dependence without complication Mixed hyperlipidemia Mixed hyperlipidemia Essential hypertension Unspecified essential hypertension Trapezius muscle spasm Bilateral hand pain Breast cancer screening declined Bilateral hand pain- Primary documented in this encounter [facility]* Diagnosis Colon cancer screening- Primary Special screening for malignant neoplasms, colon Atherosclerosis of [place] coronary artery without angina pectoris, unspecified whether [place] or transplanted heart Essential hypertension Unspecified essential hypertension Hypothyroidism (acquired) Unspecified hypothyroidism Idiopathic gout, unspecified chronicity, unspecified site Bronchitis Bronchitis, not specified as acute or chronic Essential hypertension- Primary Unspecified essential hypertension Coronary artery disease involving [place] coronary artery of [place] heart without angina pectoris Trapezius muscle spasm Tobacco user Tobacco use disorder Essential hypertension- Primary Unspecified essential hypertension Coronary artery disease involving [place] coronary artery of [place] heart without angina pectoris Trapezius muscle spasm [...] Unspecified essential hypertension Coronary artery disease involving [place] coronary artery of [place] heart without angina pectoris Hypothyroidism (acquired) Unspecified [...] 2024 1:48pmHypothyroidism (acquired)acute December 12, 2024 1:48pm [facility] Work Phone: Hospital Discharge instructionsAmbulatory Orders* Referral to Pain Management Location: None Selected [facility] Work Phone: Reason for referral (narrative)No reason for referral information availableMer[facility] Work Phone: Summary Purpose Family [...] Admit Date follow up after pain management 2023 12:52pm refer back from pm worsening [...] 2024 1: 48pm Hypothyroidism (acquired) December 12 1:48pm Additional Source Comments INFORMATION SOURCE (unrecogn ized section and content) DATE CREATED AUTHOR 07/25/2022 [facility] DATE CREATED AUTHOR AUTHOR'S ORGANIZ ATION 03/06/2024 [facility] DATE CREATED AUTHOR AUTHOR'S ORGANIZ ATION 06/05/2024 [facility] DATE CREATED AUTHOR AUTHOR'S ORGANIZ ATION 07/22/2024 [facility] DATE CREATED AUTHOR AUTHOR'S ORGANIZ ATION 09/13/2024 [facility] EPIC Care Teams (unrecognized sec tion and content) Team Status: Active Member Role Status Dates Carmela Lester Primary Care Provider Active Team Status: Inactive Member Role Status Dates Carmela Lester Primary Care Provider Active Sta rt: October 06, 2023 End: October 06, 2023Breann Ch ProviderActiveStart: October 06, 2023 End: October 06, 2023 Team Status: Active Member Role Status Dates Carmela Lester Primary Care Provider Active Sta rt: October 27, 2023 Breann Ch ProviderActiveStart: October 27, 2023 Team Status: Inactive Member Role Status Dates Carmela Lester Primary Care Provider Active Sta rt: October 27, 2023 End: October 27, 2023Breann Ch ProviderActiveStart: October 27, 2023 End: October 27, 2023 Team Status: Inactive Member Role Status Dates Carmela Lester Primary Care Provider Active Sta rt: December 01, 2023 End: December 01, 2023Loly Comer , APRNAttending ProviderActiveStart: December 01, 2023 End: December 01, 2023 Team Status: Inactive Member Role Status Dates Carmela Lester Primary Care Provider Active Sta rt: December 26, 2023 End: December 26, 2023Eric N Kenricki , DOAttending ProviderActiveStart: December 26, 2023 End: December 26, 2023 Team Status: Inactive Member Role Status Dates Carmela Lester Primary Care Provider Active Sta rt: January 13, 2024 End: January 13, 2024Eric N Kenricki , DOAttending ProviderActiveStart: January 13, 2024 End: January 13, 2024 Team Status: Inactive Member Role Status Dates Carmela Lester Primary Care Provider Active Sta rt: January 16, 2024 End: January 16, 2024Eric N Td , DOAttending ProviderActiveStart: January 16, 2024 End: January 16, 2024 Team Status: Inactive Member Role Status Dates Carmela Lester Primary Care Provider Active Sta rt: February 01, 2024 End: February 01, 2024Eric N Kenricki , DOAttending ProviderActiveStart: February 01, 2024 End: February 01, 2024Team MemberRelationshipSpecialtyStart DateEnd Date Parviz Stewart MD [address] [place] [phone] PCP - GeneralFamily Medicine05/10/23 Carmela Lester NP [address] [place] [address] Referring PhysicianNurse Practitioner10/04/22 Carmela Lester NP [address] [place] [address] [facility]er[facility]05/10/23Team MemberRelationshipSpecialtyStart DateEnd Date Parviz Stewart MD [address] [place] [address] PCP - [facility]05/10/23 Carmela Lester NP [address] [place] [address] Referring PhysicianNurse Practitioner10/04/22 Carmela Lester NP [address] [place] [address] Nurse PractitionerSaint [facility] Medicine05/10/23Team MemberRelationshipSpecialtyStart DateEnd Date Parviz Stewart MD [address] [place] [address] PCP - [facility] Medicine05/10/23 Carmela Lester NP [address] [place] [address] Referring PhysicianNurse Practitioner10/04/22 Carmela Lester NP [address] [place] [address] Nurse Practitioner[facility] Medicine05/10/23Team MemberRelationshipSpecialtyStart DateEnd Date Parviz Stewart MD [address] [place] [address] PCP - [facility]05/10/23 Carmela Lester NP [address] [place] [address] Referring PhysicianNurse Practitioner10/04/22 Carmela Lester NP [address] [place] [address] Nurse Pract[facility]er[facility] Medicine05/10/23Team MemberRelationshipSpecialtyStart DateEnd Date Parviz Stewart MD [address] [place] [address] PCP - [facility] Medicine05/10/23 Carmela Lester NP [address] [place] [address] Referring PhysicianNurse Practitioner10/04/22 Carmela Lester NP [address] [place] [address] Nurse Pract[facility]er[facility] Medicine05/10/23Team MemberRelationshipSpecialtyStart DateEnd Date Parviz Stewart MD [address] [place] [address] PCP - [facility]05/10/23 Carmela Lester NP [address] [place] [address] Referring PhysicianNurse Practitioner10/04/22 Carmela Lester NP [address] [place] [address] Nurse PractitionerFamily Medicine05/10/23Team MemberRelationshipSpecialtyStart DateEnd Date Parviz Stewart MD [address] [place] [address] PCP - GeneralFamily Medicine05/10/23 Carmela Lester, EMMANUEL [address] [place] [address] Referring PhysicianNurse Practitioner10/04/22 Carmela Lester NP [address] [place] [address] Nurse PractitionerFamily Medicine05/10/23 Den Chávez DO [address] [place] [address] Referring PhysicianNeurology1 Jessica Venegas NP [address] [place], [place] Nurse PractitionerNeurology1Team MemberRelationshipSpecialtyStart DateEnd Date Parviz Stewart MD [address] [place] [address] PCP - GeneralFamily Medicine05/10/23 Carmela Lester NP [address] [place] [address] Referring PhysicianNurse Practitioner10/04/22 Carmela Lester, EMMANUEL [address] [place] [address] Nurse PractitionerFamily Medicine05/10/23 Den Chávez DO [address] [place] [address] Referring PhysicianNeurolog03/27/24 Jessica Venegas NP [address] [place], [place] Nurse PractitionerNeurology1Team MemberRelationshipSpecialtyStart DateEnd Date Parviz Stewart MD [address] [place] [address] PCP - GeneralFamily Medicine05/10/23 Carmela Lester NP [address] [place] [address] Referring PhysicianNurse Practitioner10/04/22 Carmela Lester NP [address] [place] [address] Nurse PractitionerFamily Medicine05/10/23 Den Chávez DO [address] [place] [address] Referring PhysicianNeurolog03/27/24 Jessica Venegas NP [address] [place] [address] Nurse PractitionerNeurolog03/27/24Team MemberRelationshipSpecialtyStart DateEnd Date Parviz Stewart MD [address] [place] [address] PCP - GeneralFamily Medicine05/10/23 Carmela Lester NP [address] [place] [address] Referring PhysicianNurse Practitioner10/04/22 Carmela Lester NP [address] [place] [address] Nurse PractitionerFamily Medicine05/10/23 Den Chávez DO [address] [place] [address] Referring PhysicianNeurolog03/27/24 Jessica Venegas NP [address] [place] [address] Nurse PractitionerNeurology1Team MemberRelationshipSpecialtyStart DateEnd Date Parviz Stewart MD [address] [place] [address] PCP - [facility]05/10/23 Carmela Lester NP [address] [place] [address] Referring PhysicianNurse Practitioner10/04/22 Carmela Lester NP [address] [place] [address] Nurse PractitionerF[facility] Medicine05/10/23 Den Chávez DO [address] [place] [address] Referring PhysicianNeurolog03/27/24 Jessica Venegas NP [address] [place] [address] Nurse PractitionerNeurology1Team MemberRelationshipSpecialtyStart DateEnd Date Parviz Stewart MD [address] [place] [address] PCP - [facility]05/10/23 Carmela Lester NP [address] [place] [address] Referring PhysicianNRusk Rehabilitation Center10/04/22 Carmela Lester NP [address] [place] [address] [facility]05/10/23 Den Chávez DO [address] [place] [address] Referring PhysicianNeurolog03/27/24 Jessica Venegas NP [address] [place] [address] Nurse PractitionerNeurolog03/27/24Team MemberRelationshipSpecialtyStart DateEnd Date Parviz Stewart MD [address] [place] [address] PCP - [facility]05/10/23 Carmela Lester NP [address] [place] [address] Referring PhysicianNurse Practitioner10/04/22 Carmela Lester NP [address] [place] [address] Nurse PractitionerFamily Medicine05/10/23 Den Chávez DO [address] [place] [address] Referring PhysicianNeurolog03/27/24 Jessica Venegas NP [address] [place] [address] Nurse PractitionerNeurolog03/27/24Team MemberRelationshipSpecialtyStart DateEnd Date Parviz Stewart MD [address] [place] [address] PCP - [facility]Story [facility]ly [facility]05/10/23 Carmela Lester NP [address] [place] [address] Referring PhysicianNurse Practitioner10/04/22 Carmela Lester NP [address] [place] [address] Nurse PractitionerFamily Medicine05/10/23 Den Chávez DO [address] [place] [address] Referring PhysicianNeurolog03/27/24 Jessica Venegas NP [address] [place] [address] Nurse PractitionerNeurologTeam MemberRelationshipSpecialtyStart DateEnd Date Parviz Stewart MD [address] [place] [address] PCP - [facility] Medicine05/10/23 Carmela Lester NP [address] [place] [address] Referring PhysicianNurse Practitioner10/04/22 Carmela Lester NP [address] [place] [address] [facility]er[facility]05/10/23 Den Chávez DO [address] [place] [address] Referring PhysicianNeurolog03/27/24 Jessica Venegas NP [address] [place] [address] Nurse PractitionerNeurolog03/27/24 Team Status: Active Member Role Status Dates Carmela Lester NP-C Primary Care Provider Active Team Status: Inactive Member Role Status Dates Carmela Lester NP-C Primary Care Provider Active Start: December 12, 2024 End: December 12, 2024Carmela Lester NP-CAttending ProviderActiveStart: December 12, 2024 End: December 12, 2024Team MemberRelationshipSpecialtyStart DateEnd Date Parviz Stweart MD PCP - [facility]05/10/23 Carmela Lester NP Referring PhysicianNurse Practitioner10/04/22 Carmela Lester NP Nurse PractitionerFaid[facility] Medicine05/10/23 Dne Chávez DO [address] [place] [address] Referring PhysicianNeurolog03/27/24 Jessica Venegas NP [address] [place] [address] Nurse PractitionerNeurolog03/27/24Team MemberRelationshipSpecialtyStart DateEnd Date Parviz Stewart MD PCP - [facility]05/10/23 Carmela Lester NP Referring PhysicianNurse Practitioner10/04/22 Carmela Lester NP Nurse PractitionerSaint [facility] Medicine05/10/23 Den Chávez DO [address] [place] [address] Referring PhysicianNeurolog03/27/24 Jessica Venegas NP [address] [place] [address] Nurse PractitionerNeurolog03/27/24 Goals (unrecognized section and content) Goals may [...] Contact Neurology Diagnoses Paresthesia of skin Procedures [place] OFFICE/OUTPATIENT NEW LOW [facility] Milton Appiah MD Phone: tel: fax: Addy Lynn MD [address] [place] [address] Phone: tel: fax: Referral IDStatusReasonStart DateExpiration DateVisits RequestedVisits [id number] Consult and Treat /[id number] FOR RECORDS PERTAINING TO PATIENTS WHO ARE [...] BE BASED ON THE PRIMARY CLINICAL RECORDS. From [employer] provides no warranty or guarantee of the accuracy or completeness of information in this document.
[2025-01-17 09:33] LABS: Anion Gap 12.1; Blood Urea Nitrogen 10.0 mg/dL (7.0-18.0); Calcium 9.3 mg/dL (8.5-10.1); Carbon Dioxide 29.8 mmol/L (21.0-32.0); Chloride 103 mmol/L (98-107); Estimated GFR (African America >60 (>=60 mL/min/1.73m^2); Estimated GFR (Non-African Ame >60 (>=60 mL/min/1.73m^2); Glucose 101 mg/dL (74-106); Potassium 3.9 mmol/L (3.5-5.1); Sodium 141 mmol/L (136-145)
--- NOTE | 2025-01-17 09:39 | ECG_ITS ---
[facility] Test Date: 2025-01-17 Pat Name: CHRISTIANO MENDOZA Department: Room: - Gender: Female Inspector Eyeglass: : 1970 Requested By: LESLEY CHRIS Order Number: [id number] Reading MD: ALIZA REED Measurements Intervals [place] Rate: 55 P: 67 [place]: 158 QRS: 46 QRSD: 84 T: 59 QT: 426 QTc: 409 Interpretive Statements SINUS BRADYCARDIA NONSPECIFIC ST & T-WAVE ABNORMALITY Compared to ECG 02/16/2019 12:29:04 T-wave abnormality now present Sinus rhythm no longer present Myocardial infarct finding no longer present ST (T wave) deviation no longer present Electronically Signed On 01-17-2025 17:00:33 EST by ALIZA REED
--- NOTE | 2025-01-17 10:00 | CA_ITS ---
Patient Name: CHRISTIANO MENDOZA MR#: [id number] : 1970 Exam Date: 01/17/2025 Ordering Doctor: DEREK CHRIS CNP ECHOCARDIOGRAM REPORT PROCEDURE: CA ECHO DOPPLER COMPLETE INDICATIONS: Hypertension, coronary artherosclerosis COMPARISON: None. DESCRIPTION: COMPLETE ECHOCARDIOGRAM Real-time transthoracic echocardiography with 2D, M-mode, spectral and color flow Doppler performed. QUALITY: Technical quality was good. LEFT VENTRICLE: Normal chamber size. Normal left ventricular wall thickness. Global left ventricular systolic function is normal. LV EF: Estimated left ventricular ejection fraction is 60%. DIASTOLIC: Grade 2 diastolic dysfunction. ATRIAL SEPTUM: LEFT ATRIUM: Mild dilatation. RIGHT ATRIUM: Mild dilatation. RIGHT VENTRICLE: Normal chamber size. Normal right ventricular systolic function. TRICUSPID VALVE: Normal mobility and thickness. No stenosis with mild regurgitation. Mild pulmonary hypertension. RVSP 39 mmHg. MITRAL VALVE: Normal mobility and thickness. No evidence of mitral valve stenosis. There is no mitral annular calcification. Trivial mitral regurgitation. AORTIC VALVE: The aortic valve is trileaflet. No visible sclerosis. Normal leaflet mobility. No evidence of aortic valve stenosis. Trivial aortic regurgitation. AORTIC ROOT: Normal diameter and appearance, measuring 3.2 cm. The ascending aorta is normal in size measuring 3.1 cm. PULMONIC VALVE: Normal thickness and mobility. No stenosis. Trivial regurgitation. PERICARDIUM: No evidence of pericardial effusion. IVC: Collapses with inspiration. Normal size. PLEURA: CONCLUSION: 1. Normal ventricular size and systolic function. LVEF is estimated at 60%. 2. Grade 2 diastolic dysfunction. 3. Mild biatrial dilatation. 4. Mild tricuspid regurgitation. 5. Mildly elevated right-sided pressures. Adult Echocardiography Procedure Report Left Ventricle LVEDD (3.7 - 5.6 cm): 4.39 cm LVESD (2.2 - 4.0 cm): 3.06 cm LVIVS thickness (0.6 - 1.2 cm): 0.80 cm LVPW thickness (0.5 - 1.0 cm): 0.72 cm e': 0.11 m/s E - e': 6.97 LVOT Max Gradient: 2.04 mm[Hg] LVOT Area (cm2): 0.71 m/s Peak Velocity (LVOT): 0.71 m/s Mean Velocity (LVOT): 0.46 m/s LVOT Diameter 2.04 cm Left Ventricular Ejection Fraction: 60 % Left Atrium LA Volume Index (2D A2C): 38.13 ml/m2 Left Atrium Systolic Dimension: 3.70 cm Mitral Valve MV E to A Ratio: 1.64 Mitral Valve A-Wave Peak Velocity: 0.48 m/s Mitral Valve E-Wave Peak Velocity: 0.79 m/s Right Ventricle RV Internal Diastolic Dimension: 3.34 cm Aorta AO Root Diam: 3.16 cm Ascending Ao Diam: 3.14 cm Aortic Valve AoV Area (Peak Te): 1.99 cm2, 1.99 cm2 AoV Area (VTI): 1.84 cm2, 1.84 cm2 Peak Velocity(Antegrade Flow): 1.16 m/s Peak Gradient(Antegrade Flow): 5.42 mm[Hg] Mean Velocity(Antegrade Flow): 0.79 m/s Mean Gradient(Antegrade Flow): 2.86 mm[Hg] Velocity Time Integral: 28.11 cm Tricuspid Valve Peak Velocity (Regurgitant Flow): 2.81 m/s, 3.02 m/s, 2.64 m/s Pulmonic Valve Mean Gradient: 1.00 mm[Hg], 0.92 mm[Hg] Mean Velocity: 0.47 m/s, 0.45 m/s Peak Velocity: 0.65 m/s Peak Gradient: 1.71 mm[Hg], 1.71 mm[Hg] Right Atrium Right Atrium Systolic Pressure: 29.47 ml, 29.47 ml Dictated by: Antonino Gardner M.D. on 01/17/2025 at 19:54 Approved by: Antonino Gardner M.D. on 01/17/2025 at 20:01
== END 2025-01-17 09:02 | disposition home or self-care (01) ==
LOC: LAB 09:01
PROVIDERS: PCP Nurse Practitioner; Visit Provider Nurse Practitioner
DX: I25.10 Atherosclerotic heart disease of native coronary artery without angina pectoris (principal); I10 Essential (primary) hypertension; I25.84 Coronary atherosclerosis due to calcified coronary lesion
CPT/HCPCS: 36415; 80048; 93005; 93306

== ENCOUNTER 2025-01-31 08:19 | Outpatient (OUT) | payer OTHER, SELFPAY ==
--- OUTSIDE RECORDS SUMMARY | 2025-01-24 09:08 | XMS_ITS | Continuity of Care Document ---
Author Organization [facility] Address [address] [place] [address] Phone Care Team Providers Care Interpreter Name Role Phone Carmela Lester MACHINE OR MACHINERY MECHANIC-C Primary Care Provider Carmela Lester MACHINE OR MACHINERY MECHANIC-C Attending Provider Care Teams Patient Care Team Team Status: Active Member Role/Relationship Status Dates Carmela Lester MACHINE OR MACHINERY MECHANIC-C Primary Care Provider Active Visit Care Team Team Status: Inactive Member Role/Relationship Status Dates Carmela Lester MACHINE OR MACHINERY MECHANIC-C Primary Care Provider Active Start: December 12, 2024 End: December 12, 2024Carmela Lester NP-CAttenchavo ProviderActiveStart: December 12, 2024 End: December 12, 2024 Patient Care Team Team Status: Active Member Role/Relationship Status Dates Carmela Lester MACHINE OR MACHINERY MECHANIC-C Primary Care Provider Active Start: January 17, 2025 Carmela Lester NP-CAttending ProviderActiveStart: January 17, 2025 Patient Care Team Team Status: Inactive Member Role/Relationship Status Dates Carmela Lester MACHINE OR MACHINERY MECHANIC-C Primary Care Provider Active Start: January 24, 2025 End: January 24, 2025Carmela Lester NP-CAttenchavo ProviderActiveStart: January 24, 2025 End: January 24, 2025 Chief Complaint and Reason for Visit Chief Complaint Admit Date 3M December 12, 2024 1: 48pm high blood pressure January 24, 2025 1:10pm Reason for Visit Admit Date Coronary atherosclerosis due to calcifie d coronary lesion December 12, 2024 1:48pm History of prior cigarette smoking Octob 2024 1:48pm HTN (hypertension) December 12, 2024 1: 48pm Hyperlipidemia December 12, 2024 1: 48pm Hypothyroidism (acquired) December 12 1:48pm Lung cancer screening declined by [facility] December 12, 2024 1:48pm Coronary atherosclerosis due to calcifie d coronary lesion January 24, 2025 1:10pm Diastolic dysfunction January 24 1:10pm HTN (hypertension) January 24, 2025 1:10pm Hyperlipidemia January 24, 2025 1:10pm Allergies, Adverse Reactions, Alerts Allergen Type Severity Reaction Last Updated Verified Status wound dressing adhesive Allergy Mild hives December 10, 2024 8:27am No Active Social History Smoking Status Unknown if ever smoked Observation Status Observation Response Date of Response Legal Sex Female (finding) Sex Assigned At BirthFemaleDecember 1969 Problems Active Problems Problem Diagnosis/Recorded Date Onset Date Status C omments Arm pain October 06, 2023 2:19pm Unknown Active Trapezius muscle spasmSeptember 2024 8:56amUnknownActiveLung cancer screening declined by patientOct2024 1:45pmUnknownActiveBreast cancer screening declinedSeptember 2024 8:36amUnknownActiveOSA (obstructive sleep apnea)December 10, 2024 8:53amUnknownActiveCigarette nicotine dependence without complicationSeptember 2024 8:41amUnknownActiveCoronary atherosclerosis due to calcified coronary lesionSeptember 2024 8:42am UnknownActiveUlnar neuropathy at elbowJuly 2023 2:19pmUnknownActive Hypothyroidism (acquired)December 10, 2024 8:48amUnknownActiveMenorrhagia December 10, 2024 8:48amUnknownActiveParesthesiaSeptember 2024 8:55am UnknownActiveGoutSeptember 2024 8:42amUnknownActiveCervical stenosis of spinal canalSeptember 2024 8:39amUnknownActiveVitamin B12 deficiency December 10, 2024 8:57amUnknownActiveIdiopathic goutSeptember 2024 8:48amUnknownActivePrinzmetal anginaSeptember 2024 8:55amUnknownActiveCAD (coronary artery disease)December 10, 2024 8:36amUnknownActiveCervical radiculopathyJuly 2023 2:19pmUnknownActiveBack painSeptember 2024 8:35amUnknownActiveSeasonal allergiesSeptember 2024 8:56amUnknownActive HyperlipidemiaSeptember 2024 8:42amUnknownActiveMyocardial infarction December 10, 2024 8:52amUnknownActiveDiastolic dysfunctionNovember 2024 7:03amUnknownActiveECHO 01/17/25 EF 60%, grade 2 diastolic dysfunction, mild elevated right sided pressuresNeuropathySeptember 2024 8:53amUnknownActive Bilateral hand painSeptember 2024 8:35amUnknownActiveGERD without esophagitisSeptember 2024 8:42amUnknownActiveSensory neuropathySeptember 2024 8:56amUnknownActivePAD (peripheral artery disease)December 10, 2024 8:55amUnknownActiveAsymptomatic microscopic hematuriaSeptember 2024 8:35amUnknownActiveNeck painAugust 2023 12:33pmUnknownActiveHistory of prior cigarette smokingOctober 2024 1:44pmUnknownActiveCervical neck pain with evidence of disc diseaseSeptember 2024 8:37amUnknownActiveAngina pectorisSeptember 2024 8:34amUnknownActiveAbnormal ankle brachial index December 10, 2024 8:34amUnknownActiveHTN (hypertension)December 10, 2024 8:47amUnknownActiveVitamin D deficiencySeptember 2024 8:57amUnknownActive Medications Medication Status Dose Units Route Directions Qty Days Refills S tart Date Stop Date End Date Reason(s) Instructions Adherence Tizanidine 4 mg tablet Discontinued MGPOJuly 2023 11:00pmNov2024 1:40pmVerapamil 80 mg tablet DiscontinuedMGPOJuly 2023 11:00pmOctober 2024 1:57pmMetoprolol Tartrate 100 mg tabletDiscontinuedMGPOJuly 2023 11:00pmOctober 2023 9:06amAtorvastatin 80 mg tabletActiveMGPOJuly 2023 11:00pmComplies with drug therapyLisinopril 20 mg tabletDiscontinuedMGPOJuly 2023 11:00pm December 12, 2024 6:02amIsosorbide Mononitrate 120 mg tablet extended release 24 hrDiscontinuedMGPOJuly 2023 11:00pmOctten [facility] 2024 1:56pmLevothyroxine 75 mcg tabletActiveMCGPOly 2023 11:00pmComplies with drug therapy Ezetimibe 10 mg tabletActiveMGPOJuly 2023 11:00pmComplies with drug therapyGabapentin 300 mg capsuleDiscontinuedMGPOJuly 2023 11:00pmOctten broeck hospital 2023 9:06amAllopurinol 300 mg tabletActiveMGPOJuly 2023 11:00pm Complies with drug therapyAspirin (Adult Low Dose Aspirin) 81 mg tablet,delayed release (DR/EC)Pkoxoc82HAJXQkgwrHind 2023 11:00pmComplies with drug therapyGabapentin 300 mg dnlnepaJvmvbefzycyd317CAQCSdwjs times daily as needed December 26, 2023 9:04amNovember 2024 1:39pmMetoprolol Tartrate 100 mg ekdjdxQsofesoxbpkk660YBLFDsfjs dailyOct2023 9:05amOctober 2024 1:56pmLisinopril 20 mg uohnnsDlrfjzuecfnf69YNPSAcdmp dailyDecember 12, 2024 6:02amOctober 2024 1:56pmTizanidine 4 mg agswcwBgrpta4TXWDKaqac at bedtime as neededJanuary 24, 2025 1:40pmComplies with drug therapyNitroglycerin 0.4 mg tablet, sublingualActiveMGSUBLINGUALDecember 25, 2023 11:00pmComplies with drug therapyDuloxetine 30 mg capsule,delayed release(DR/EC)DiscontinuedMGPO December 10, 2024 11:00pmNov2024 1:39pmMetoprolol Tartrate 25 mg rliijjMxckhprjahlw25ORMBZjamt dailyCarrie [facility]2024 11:00pmOct2024 1:56pmMetoprolol Tartrate 100 mg janwyeQkxmoj198VPYNMqmcf etvxs5651Alpmkpa2024 1:54pmHypertension Coronary atherosclerosis due to calcified coronary lesion Essential (primary) hypertension Atherosclerotic heart disease of [place] coronary artery without angina pectoris Coronary atherosclerosis due to calcified coronary lesiontotal dose is 125mg twice a dayComplies with drug therapyMetoprolol Tartrate 25 mg ghklnjMunlcd62CG POTwice ahcfs1515Boquijt2024 1:54pmHypertension Coronary atherosclerosis due to calcified coronary lesion Essential (primary) hypertension Atherosclerotic heart disease of [place] coronary artery without angina pectoris Coronary atherosclerosis due to calcified coronary lesiontotal dose is 125mg twice a dayComplies with drug therapyIsosorbide Mononitrate 120 mg tablet extended release 24 hrLgjylb647PJXKWzido768Vfeddpa 30th, 2025 1:55pmCoronary atherosclerosis due to calcified coronary lesion Hypertension Atherosclerotic heart disease of [place] coronary artery without angina pectoris Coronary atherosclerosis due to calcified coronary lesion Essential (primary) hypertensionComplies with drug therapyLisinopril 20 mg fwogslBqjlew77RZKCZhcld mltaq0436Poorvjn2024 1:56pmHypertension Essential (primary) hypertensionComplies with drug therapySpironolactone (Aldactone) 25 mg dfqfacZwuhob19IEVPVpxyv120Bcismsi 29th, 2025 11:00pm Hypertension Essential (primary) hypertensionComplies with drug therapyVerapamil 80 mg tablet Myruekgeiopc65CHMVWcquk times ngypi9880Noydnta2024 1:57pmNov2024 1:41pmHypertension Coronary atherosclerosis due to calcified coronary lesion Essential (primary) hypertension Atherosclerotic heart disease of [place] coronary artery without angina pectoris Coronary atherosclerosis due to calcified coronary lesionDuloxetine 20 mg capsule,delayed release(DR/EC)Fgtmjw89ZFUXPaojpXxunmawb 13th, 2025 12:00am Complies with drug therapyVerapamil 80 mg bkuabuHcelus96AEHUTdtml yzrap1832 January 24, 2025 1:40pmHypertension Coronary atherosclerosis due to calcified coronary lesion Essential (primary) hypertension Atherosclerotic heart disease of [place] coronary artery without angina pectoris Coronary atherosclerosis due to calcified coronary lesionComplies with drug therapy Relevant Diagnostic Tests and/or Laboratory Data Laboratory Results Test Collection Date/Time Result Date/Time Result Interpretation Reference Range Result Comment Performing Site Anion Gap January 17, 2025 9:06am January 17, 2025 9: 06am 12.1 BUN/Creatinine RatioNove2024 9:06amNove2024 9:06am14.9Blood Urea NitrogenCarol[facility]east [facility]2024 9:06amNove2024 9:06am10.0 mg/dL 7.0-18.0Calcium LevelNew [facility] 2024 9:06amNovemb2024 9:06am9.3 mg/dL 8.5-10.1Chloride LevelNew Horizons Medical Center 2024 9:06amNovemb2024 9:23as825 mmol/V48-086Ahxbft Dioxide LevelNew [facility]izons Medical [facility] 2024 9:06amNovemb2024 9:06am29.8 mmol/L21.0-32.0CreatinineCarolinaeast Medical Center2024 9:06amNovember 2024 9:06am0.67 mg/dL0.55-1.02Estimated GFR ()January 17, 2025 9:06amNovemb2024 9:06am>60>=60 mL/min/1.73m 2Estimated GFR (Non- AmericanNov2024 9:06amNovemb2024 9:06am>60>=60 mL/min/1.73m 2 Glucose LevelNew [facility]izons Medical [facility] 2024 9:06amNovemb 2024 9:94ow311 mg/oR74-061 Potassium LevelNew Horizons Medical Center 2024 9:06amNovember 2024 9:06am3.9 mmol/L 3.5-5.1Sodium LevelNov2024 9:06amNovember 2024 9:95db374 mmol/L 136-145 Vital Signs Vital Reading Result Reference Range Collection Date/Time Height 64 [in_i] December 12, 2024 1:14krAepzhs48.14 kgOctten broeck hospital 2024 1:10pmBody Temperature 98.1 [degF]97.6-99.0October 2024 1:10pmHeart Rate78 /myr99-703Yblmilg 2024 1:10pmRespiratory rate18 /qph77-39Jqkbqdq 2024 1:10pmOxygen saturation by Pulse uecvumge86 %95-100Octten [facility]ck hospital 2024 1:10pmBP Mqluzzmq735 mm[Hg]100-140 December 12, 2024 1:10pmBP Lobqesfme489 mm[Hg]60-100Octten [facility]ck hospital 2024 1:10pmBMI (Body Mass Index)23.5 kg/e5Hghruxr 2024 1:76ysXsrxjl69 [in_i]January 24, 2025 1:77lmQwomya83.36 kgNovlittle colorado medical center 2024 1:22pmBody Bxbwatdenri22.5 [degF] 97.6-99.0[facility]2024 1:22pmHeart Rate70 /wmo83-088WbtmoqukJanuary 24, 2025 1:22pmRespiratory rate18 /vmd64-99Vmiyoruf 13th, 2025 1:22pmOxygen saturation by Pulse %95-100January 24, 2025 1:22pmBP Nyerguku273 mm[Hg]100-140 January 24, 2025 1:22pmBP Fauvzchwv56 mm[Hg]60-100Nov2024 1:22pm BMI (Body Mass Index)23.6 kg/h1Evsgpnnp2024 1:22pm Advance Directives Advance Directive Response Recorded Date/ Time Advance Directives No September 22 3:25pm Insurance Providers Guarantor Diane Canas Address [address] [address]Jlrnleh Info.Home Phone: Coverage Status Update:2024 Payer Group Member ID Coverage Type Subscriber Relationship to Subscriber Effective Date Expiration Date O Id: [id number] R Bartlett Id: [id number] [address] [facility] [address] Home Phone: Email: [email or web address] Encounters Encounter Location(s) Arrival/Admit Date Discharge/Departure Date Discharge/Departure Disposition Provider(s) Departed Physician/ Provider Office Visit -[facility] Family Medicine Ced December 12, 2024 1:48pm December 12, 2024 2:42pm Discharged to home care or self care (routine discharge) RAFITA Vega Non-patient / Non-visit -[facility]2024 9:06am RODNEY Vegaeparted Physician/Provider Office Visit-[facility] Family Medicine [facility] 2024 1:10pmNovember 2024 2:07pmDischarged to home care or self care (routine discharge)RAFITA Vega Recent Diagnosis Onset Date Admit Date Coronary atherosclerosis due to calcified coronary lesion Unknown December 12, 2024 1:48pm History of prior cigarette smoking Unknown December 12, 2024 1:48pm HTN (hypertension) Unknown December 12, 2024 1:48pm Hyperlipidemia Unknown December 12 1:48pm Hypothyroidism (acquired) Unknown r 2024 1:48pm Lung cancer screening declined by patient Unknow n December 12, 2024 1:48pm Coronary atherosclerosis due to calcified coronary lesion Unknown January 24, 2025 1:10pm Diastolic dysfunction Unknown January 122024 1:10pm HTN (hypertension) Unknown January 1:10pm Hyperlipidemia Unknown January 24, 2 1:10pm Assessments Diagnosis Onset Date Resolution Status Admit Date Coronary atherosclerosis due to calcifie d coronary lesion acuteOct2024 1:48pmHistory of prior cigarette smokingacuteOct2024 1:48pmHTN (hypertension)acuteOct2024 1:48pmHyperlipidemiaacute December 12, 2024 1:48pmHypothyroidism (acquired)acuteOctober , 2025 1:48pm Lung cancer screening declined by patientacuteOctober 2024 1:48pmCoronary atherosclerosis due to calcified coronary lesionacuteNov2024 1:10pm Diastolic dysfunctionacuteNov2024 1:10pmHTN (hypertension)acute January 24, 2025 1:10pmHyperlipidemiaacuteNov2024 1:10pm Plan of Treatment Author Carmela [facility] 2024 1:45pmPlease check blood pressure daily and record DASH diet Limit caffeine Take medication as directed Contact office if chest pain, pressures, dizziness, shortness of breath, swelling in the legs Recommend slow position changes if you develop dizziness with position changes current meds: lisinopril, imdur, b jose, verapamil normally blood pressure is good, will not make changes to doses, has pain mgmt appt 01/02/25 I will check then to see about blood pressure on statin and zetia check labs yearly and prn dose changes on levothyroxine check labs yearly, and prn dose change or changes in sxs risk factor modification: no smoking, +follow low fat diet, control blood pressure and lipds meds: asa, statin/zetia/imdur, nitrates quit smoking 2 years ago, 34 pack year smoker declines lung cancer screening Author Carmela [facility] 2024 7:05amPlease check blood pressure daily and record DASH diet Limit caffeine Take medication as directed Contact office if chest pain, pressures, dizziness, shortness of breath, swelling in the legs Recommend slow position changes if you develop dizziness with position changes current meds: lisinopril, imdur, b jose, verapamil, aldactone on statin and zetia check labs yearly and prn dose changes risk factor modification: no smoking, +follow low fat diet, control blood pressure and lipds meds: asa, statin/zetia/imdur, nitrates ECHO 01/17/25: EF 60%, grade 2 diastolic dysfunction, mild elevated right sided pressures Future Tests Future scheduled test information is unavailable Pending Tests Test Name Ordered Date Scheduled Date ECG 12 lead ECG January 10, 2025 1:49pm [facility] echo transthoracicOct2024 1:49pm Future Visits Future appointment information is unavailable Future Procedures Procedure Name Ordered Date Scheduled Date Basic Metabolic Panel January 24, 2025 7:06am Complete Blood Count Auto DiffNovember 2024 2:05pmThyroid Stimulating HormoneNovember 2024 2:05pm Future Medications Future medication information is unavailable Patient Instructions Patient instructions are unavailable
--- OUTSIDE RECORDS SUMMARY | 2025-01-31 08:21 | XMS_ITS | Clinical Summary ---
Author Organization [employer] Address [id number] [address] [place] [address] Care Team Providers Care Wood Shop Teacher Name Role Phone OsieljaneinocencioCarmela Karlene [employer] Primary Care Provider Social History Tobacco UseTypesPacks/DayYears UsedDateSmoking Tobacco: Never AssessedChildcare AnswerDate ZqiiicvyMtrpjcxptEmrobxx59/10/2019EmploymentAnswerDate Recorded JzhecjbuxlIoypqps28/10/2019CommentsUnknownSex and Gender Information ValueDate RecordedSex Assigned at BirthNot on fileLegal TwpWautvn51/04/2015 11:59 AM EDTGender IdentityNot on fileSexual OrientationNot on file Plan of Treatment Health MaintenanceDue DateLast DoneCommentsDepression Bafnimowp53/17/1983Tobacco Caxxypxsq94/17/1983Adult BMI Nsvjbafzy19/17/1989DTaP,Tdap and Td Vaccines (1 - Tdap)1990Pap Smear02/28/1992Zoster (Shingles) Vaccine (1 of 2)2021 Influenza Pzlfwhe88/01/214069/, 11/03/2018, 12/23/2017 Medical Devices Not on file Insurance Care Teams Team MemberRelationshipSpecialtyStart DateEnd Date Carmela Lester, ASSISTANT WOMEN'S SOCCER COACH-[employer] PCP - GeneralNurse Practitioner10/21/20
--- OUTSIDE RECORDS SUMMARY | 2025-01-31 08:21 | XMS_ITS | Clinical Summary ---
Author Organization [facility] Address [address] [place] [address], [address] [place] [address] Care Team Providers Care Circuit Walker Name Role Phone Unavailable Primary Care Provider Unavailabl e Social History Tobacco UseTypesPacks/DayYears UsedDateSmoking Tobacco: Never Assessed CommentsUnknownSex and Gender InformationValueDate RecordedSex Assigned at Not on fileLegal AibJppumu61/12/2013 8:47 PM ESTGender IdentityNot on fileSexual OrientationNot on file Plan of Treatment Not on file
--- OUTSIDE RECORDS SUMMARY | 2025-01-31 08:21 | XMS_ITS | Clinical Summary ---
Author Organization [facility] Address [address] [place] [address] Care Team Providers Care Rf Test Technician Name Role Phone Carmela Lester MD Primary Care Provider [phone] Allergies No known active allergies Medications MedicationSigDispense [...] times daily.05/09/2023ctive Active Problems ProblemNoted DateDiagnosed DateDaytime fujkmbfier36/15/2024OSA (obstructive sleep apnea)09/26/20238347Wzrenbdnnjf26/15/2024ervical wzlqbfntukiek25/26/2024 Cervical neck pain with evidence of disc ptmqdzh4007/11/2023bnormal ankle brachial index (LYSSA)symptomatic microscopic hematuria ack pain, ejledrk09ilateral hand pain GERD (gastroesophageal reflux disease) Loud csqkcur00Lumbosacral radiculopathy at S1005/10/2023 06/08/20235007Ooaaiyoajmk84Neuropathy Peripheral artery mcqzztn72Seasonal ldajjrdag13/27/2024 06/08/2023Tobacco userTrapezius muscle spasm05/10/2023 06/08/2023 Overview (06/08/2023): Last Assessment & Plan: Doing well on tizanidine, will give refill Will refer to [facility] in 6 weeks Vitamin B12 iuugwwgstj25Vitamin D dtyqorrcmg42/27/2024 06/08/2023GoutHypothyroidism (acquired)/ Overview (06/08/2023): Last Assessment & Plan: C/o weight gain, fatigue Will check labs Cont current supplement at this time Prinzmetal zkydqs31Essential hjwnolvakbxz97 Overview (06/08/2023): Last Assessment & Plan: Back on lisinopril BID, better blood pressure control with metoprolol at 125mg BID I have reviewed her ECHO report with her, I am going to refer her back to cardiology w her hx of CAD [facility], would like to see Dr Lombardo Coronary wghwsjbokgmvbbp62 Overview (06/08/2023): Last Assessment & Plan: Stable no chest pain Check labs, recommend quit tobacco Ojdtxoaurjlriy05 Overview (06/08/2023): Needs refill of zetia Family History Medical HistoryRelationNameCommentsCoronary artery diseaseFatherRelationName StatusCommentsFather Social History Tobacco UseTypesPacks/DayYears UsedDateSmoking Tobacco: FormerCigarettes Smokeless Tobacco: Current Tobacco Cessation:Ready to Q uit: Not Asked; Counseling Given: Not Answered Comments:vapes Alcohol UseStandard Drinks/WeekCommentsNot Currently0 (1 standard drink = 0.6 oz pure alcohol)[place] Safety & EnvironmentAnswerDate RecordedFear of Current or Ex-PartnerNot on file05/31/2023Emotionally AbusedNot on file05/31/2023hysically AbusedNot on file05/31/2023Sexually AbusedNot on 05/31/2023hysically or Sexually AbusedNot on 05/31/2023CommentsUnknownSex and Gender InformationValueDate RecordedSex Assigned at BirthNot on fileLegal SexFemale 09/09/2021 10:46 PM EDTGender IdentityNot on fileSexual OrientationNot on file Last Filed Vital Signs Vital SignReadingTime TakenCommentsBlood Jfjvyqbx598/8406/04/2024 1:00 PM EDT Uccti372306/04/2024 1:00 PM EDTTemperature--Respiratory Rate--Oxygen Qmmmbzlhfj13% 06/04/2024 1:00 PM EDTInhaled Oxygen Concentration--Fdendu79.8 kg (145 lb) 06/04/2024 1:00 PM XVTYabwut610.6 cm (5' 4 )06/04/2024 1:00 PM EDTBody Mass Index24.8906/04/2024 1:00 PM EDT Plan of Treatment DateTypeDepartmentCare Team (Latest Contact Info)Hyvahcnfwjo57/11/2025 1:45 PM ESTOffice Visit [facility] [address] [place] [address] Nino Zapata MD [address] [facility] [address] [facility] [place] [address] Health MaintenanceDue DateLast DoneCommentsCT Wavfsuhadayd1971Colonoscopy 1971FOBT1971 3873Inwpgddnugsyr1971Depression Zwemcedag48/17/1983 Hepatitis B Vaccines (1 of 3 - 19+ 3-dose series)1990Pap Smear02/28/1992 Adult Kcokqju8102/27/1993Cervical Cancer Ujtxtqxgw42/17/2001HPV/Xdzjhz2402/27/2001 Jfvlipzmg38/17/2011Zoster Vaccines (1 of 2)2021FIT02/25/20230315/ COVID-19 Vaccine (1 - 2024- season)2024Influenza Vaccine (#1)2024 11/04/2022, 01/01/2022, 01/03/2021, Additional history existsColorectal Cancer Zcgvcsryz95/15/2026FIT-DNAneumococcal Vaccine: Pediatrics (0 to 5 Years) and At-Risk Patients (6 to 64 Years)Tyupijoxf09/24/2023, 11/03/2018HIB VaccinesAged OutNo longer eligible based on [...] MemberRelationshipSpecialtyStart DateEnd Date Carmela Lester MD [address] [place] [address] PCP - GeneralNurse Practitioner06/08/23
--- OUTSIDE RECORDS SUMMARY | 2025-01-31 08:21 | XMS_ITS | Clinical Summary ---
Author Organization [facility] Healthcare Address [address] [place] [address] Care Team Providers Care Musical String Maker Name Role Phone Carmela Lester NP Unavailable [phone] Parviz Stewart MD Primary Care Provider Carmela Lester NP Unavailable [phone] Nai Chávez DO Unavailable [phone] Jessica Venegas NP Unavailable [phone] Allergies Active AllergyReactionsCriticalityNoted DateCommentsWound Dressing AdhesiveHives [...] MG SL tablet Indications:Coronary artery disease involving asa'[place] coronary artery of asa'[place] heart without angina pectorisPlace 1 tablet (0.4 mg) under the tongue every 5 (five) minutes if needed for chest pain If after 3doses still chest pain, go to ER/call 911 25 tablet 4Active atorvastatin (Lipitor) 80 MG tablet Indications:Coronary artery disease involving [place]a'[place] coronary artery of [place] heart without angina pectorisTake 1 tablet (80 mg) by mouth at bedtime Take pill in the evening time not morning 90 tablet tive ezetimibe (Zetia) 10 MG tablet Indications:Coronary artery disease involving [place] coronary artery of [place] heart without angina pectorisTake 1 tablet (10 mg) by mouth Daily 90 tablet tive isosorbide mononitrate ER (Imdur) 120 MG 24 hr tablet Indications:Coronary artery disease involving asa'[place] coronary artery of asa[place] heart without angina pectoris,Essential hypertensionTake 1 tablet [...] Problems ProblemNoted DateDiagnosed DateCigarette nicotine dependence without lvzjwuqubwxr08/01/2025 Assessment & Plan (09/11/2024 7:24 AM EDT): [...] to start this process Breast cancer screening lmfjhbum40/01/6812Ukcixdfozdh54/15/2024Sensory hzruqnonqo02/15/2024Lumbosacral wxfbokfivlruo26/15/2024OSA (obstructive sleep apnea)09/26/2023 Assessment & Plan (09/11/2024 [...] etc: Doctor that manages your ERICK: Daytime dvoivespke20/15/2024ervical stenosis of spinal canal09/07/2023 Assessment & Plan (09/07/2023 8:50 PM EDT): Reviewed MRI cervical spine Will refer to neurosurgeon dr helen Sales in 8 weeks Cervical xbtcqalcxijut93/26/2024 Assessment & Plan (09/07/2023 8:50 PM EDT): Reviewed MRI Refer neurosurgeon Check EMG right UE Cervical neck pain with evidence of disc gyzgtrs8007/11/2023 Assessment & Plan (07/11/2023 5:14 PM EDT): Suspect disc pathology right UE PT agrees with need for MRI Will order MRI Fu in 4 weeks to review the results Irjxooauna12/27/2024Lumbosacral radiculopathy at S1005/10/2023Loud snoring 05/10/2023eripheral artery jprtoib9805/10/2023Myocardial znqfaihsbs59/27/2024 Prinzmetal ouznzq1405/10/2023AD (coronary artery disease)05/10/2023 Assessment & Plan (09/11/2024 7:23 AM EDT): Current meds: statin, zetia, alee, imdur, b jose , verapamil, and prn nitroglycerin Abnormal ankle brachial index (LYSSA)05/10/2023GERD (gastroesophageal reflux disease)05/10/20233292Lhjfsgaslmn98/27/2024symptomatic microscopic hematuria 05/10/2023ilateral hand pain05/10/2023 Assessment & Plan (09/11/2024 2:59 PM EDT): Bilat hand xray Consider ortho, ?? Dequervains tenosynovitis Vitamin D dipimplmrc24/27/2024Vitamin B12 lbjsjctsyd29/27/2024Seasonal allergies 05/10/2023ack pain, nzfphcr6305/10/2023Trapezius muscle spasm05/10/2023 Assessment & Plan (07/11/2023 4:03 PM EDT): Still with continued symptoms Therapy helps some Therapist is recommending an MRI c spine Assessment & Plan (05/30/2023 3:43 PM EDT): Doing well on tizanidine, will give refill Will refer to [facility] in 6 weeks Assessment [...] (02/07/2023 3:30 PM EST): Check labs Angina tehrqphk95/17/1063Ykzjaqmmcyfe94/17/2012 Assessment & Plan (09/11/2024 7:22 AM EDT): [...] to cardiology w her hx of CAD [facility], would like to see Dr Lombardo Assessment & Plan (05/10/2023 2:12 PM EST): Out of lisinopril, was only taking half the dose Meds are refilled, pt will start back on normal dose To stop by office in 2 days for blood pressure check Assessment & Plan (02/07/2023 3:29 PM EST): Stable, cont current meds Check labs Fu in 3 months Coronary eyzzbdlcmanqlrp49/15/2011 Assessment & Plan (02/07/2023 3:29 PM EST): Stable no chest pain Check labs, recommend quit tobacco Jipyseilxsuyih26/15/2011 Overview (02/08/2023): Needs refill of zetia Assessment & Plan (09/11/2024 7:24 AM EDT): On statin and zetia Check labs yearly and prn dose changes Resolved Problems ProblemNoted DateDiagnosed DateResolved DateClosed traumatic minimally displaced fracture of proximal end of fibula with routine anoyppu30/ Tobacco user/03/2024 Assessment & Plan (07/11/2023 4:03 [...] ready to start this process Neck muscle spasmronchitis Assessment & Plan (02/07/2023 3:30 PM EST): Z pack and albuterol inhaler Fu if not better Fluids and rest Immunizations ImmunizationAdministration DatesNext DueInfluenza, injectable, quadrivalent, preservative free11/04/2022,01/01/2022,01/03/2021,12/11/2019,11/03/2018, 12/23/2017Pneumococcal Conjugate PCV 3Pneumococcal Polysaccharide [id number] Family History Medical HistoryRelationNameCommentsHeart diseaseFatherHypertensionFather HypertensionMotherRelationNameStatusCommentsFatherMother Social History Tobacco UseTypesPacks/DayYears UsedDateSmoking Tobacco: JyqizpLyfeghzyqz262 Smokeless Tobacco: NeverAlcohol UseStandard Drinks/WeekCommentsNever0 (1 standard drink = 0.6 oz pure alcohol)PHQ-2AnswerDate RecordedPatient Health Questionnaire-2 [id number] and Gender InformationValueDate RecordedSex Assigned at BirthNot on fileLegal SexFemale 05/26/2022 6:33 PM EDTGender IdentityNot on fileSexual OrientationNot on file Last Filed Vital Signs Vital SignReadingTime TakenCommentsBlood Goctkvrv074/8007/03/2024 2:19 PM EDT Biayp5927 2:19 PM DUIFjekdgsjpmm40.9 ??C (98.5 ??F)09/11/2024 2:19 PM EDTRespiratory Lhyv513609/11/2024 2:19 PM EDTOxygen Rwxietdkcd89%09/11/2024 2:19 PM EDTInhaled Oxygen Concentration--Hufpcd89.4 kg (139 lb 12.8 oz)09/11/2024 2:19 PM CQRYacqbz644.6 cm (5' 4 )03/26/2024 3:21 PM ESTBody Mass Index24 03/26/2024 3:21 PM EST Plan of Treatment Not on file Insurance Care Teams Team MemberRelationshipSpecialtyStart DateEnd Date Parviz Stewart MD [address] [place] [phone] PCP - GeneralFamily Medicine05/10/23 Carmela Lester NP [address] [place] [phone] Referring PhysicianNurse Practitioner10/04/22 Carmela Lester NP [address] [place] [address] Nurse PractitionerFanorthampton state hospital Medicine05/10/23 Nai Chávez DO [address] [place] [address] Referring PhysicianNeurolog03/27/24 Jessica Venegas NP Nurse PractitionerNeurology1
--- OUTSIDE RECORDS SUMMARY | 2025-01-31 08:23 | XMS_ITS | CCD ---
Author Organization [facility] Care Team Providers Care Bilingual Receptionist Name Role Phone AICHHOLZ, AIR VALUE TESTER CARMELA Admitting Unavailable AICHHOLZ, AIR VALUE TESTER CARMELA Attending Unavailable AICHHOLZ, AIR VALUE TESTER CARMELA Primary Care Unavailable AICHHOLZ, AIR VALUE TESTER CARMELA Consulting Unavailable AICHHOLZ, AIR VALUE TESTER CARMELA Admitting Unavailable AICHHOLZ, AIR VALUE TESTER CARMELA Attending Unavailable AICHHOLZ, AIR VALUE TESTER CARMELA Primary Care Unavailable AICHHOLZ, AIR VALUE TESTER CARMELA Consulting Unavailable AICHHOLZ, AIR VALUE TESTER CARMELA Admitting Unavailable AICHHOLZ, AIR VALUE TESTER CARMELA Attending Unavailable AICHHOLZ, AIR VALUE TESTER CARMELA Primary Care Unavailable AICHHOLZ, AIR VALUE TESTER CARMELA Consulting Unavailable AICHHOLZ, AIR VALUE TESTER CARMELA Admitting Unavailable AICHHOLZ, AIR VALUE TESTER CARMELA Attending Unavailable AICHHOLZ, AIR VALUE TESTER CARMELA Primary Care Unavailable AICHHOLZ, AIR VALUE TESTER CARMELA Consulting Unavailable Aichholz, Carmela J Primary Care Provider ORLY Comer Attending Provider ORLY Comer Attending Provider ORLY Comer Attending Provider DO Milton Appiah Attending Provider Aichholz, Carmela J Primary Care Provider [phone] Milton Appiah DO Attending Provider [phone] Aicjaneholz RESEARCH SPECIALIST, Carmela Unavailable Parviz Stewart MD Primary Care Provider Aichholz RESEARCH SPECIALIST, Carmela Unavailable Milton Appiah Attending Unavailable Milton [...] Care Unavailable Den Chávez DO Unavailable Theo RESEARCH SPECIALIST, Jessica Unavailable [phone] [place], EHAB Attending Unavailable [place], EHAB Attending Unavailable Giedraitis , Andrius Vytautas Attending Unavailable Giedraitis , Andrius Vytautas Attending Unavailable Giedraitis , Andrius Vytautas Attending Unavailable Giedraitis , Andrius Vytautas Attending Unavailable Theo RESEARCH SPECIALIST, Jessica Unavailable DEN CHÁVEZ Attending Unavailable CARMELA LESTER Attending Unavailable ASHUTOSH QUINTANA Attending Unavailable CARMELA LESTER Referring Unavailable DEN CHÁVEZ Attending Unavailable MILTON APPIAH Referring Unavailable Trevon RESEARCH SPECIALIST-CCarmela Primary Care Provider Trevon RESEARCH SPECIALIST-CCarmela Attending Provider [phone] Trevon BENITEZ, Carmela Unavailable Parviz Stewart MD Primary Care Provider Trevon BENITEZ, Carmela Unavailable Den Chávez DO Unavailable Theo BENITEZ, Jessica Unavailable Allergies Allergy ClassificationReported Allergen(s)Allergy TypeDate of OnsetReaction(s) Facility (1 source)DesonideDrug Zzbkvwa13-01-3374Bhz [facility] Repository (20 sources)Wound Dressing AdhesiveDrug Dfonrwk07-28-3248EnkvcVDBC Healthcare Medications Current Medications MedicationDrug Class(es)DatesSig (Normalized)Sig (Original)allopurinol 300 mg oral tablet (8 sources)Xanthine Oxidase InhibitorStart: 00-42-1005Fbxdawehuyd 300 mg tablet Active MG PO October 06, 2023 12:00am Complies with drug therapyStart: 10-06-2023 Allopurinol Active MG PO October 06, 2023 12:00amaspirin 81 mg delayed release oral tablet (8 sources)Platelet Aggregation Inhibitor, Nonsteroidal Anti-inflammatory Drug Start: 64-57-4362Umnromj (Adult Low Dose Aspirin) 81 mg tablet,delayed release (DR/EC) Active 81 MG PO Daily October 06, 2023 12:00am Complies with drug therapy atorvastatin 80 mg oral tablet (20 sources)HMG-CoA Reductase InhibitorStart: 86-54-0013Evfhfqsssctm Active MG PO October 06, 2023 12:00amStart: 08-10-2023 End: 06-66-3138Hmeivhtiqbwn 80 mg tablet Active MG PO October 06, 2023 12:00am Complies with drug therapydiclofenac sodium 0.01 mg/mg topical gel (3 sources)Nonsteroidal Anti-inflammatory DrugStart: 10-16-2024 End: 37-33-4794tucspasngz sodium (Voltaren) 1 % gel Indications: Bilateral [...] oral tablet (20 sources)Dietary Cholesterol Absorption InhibitorStart: 45-34-5178Tjcjwsxlt Active MG PO October 06, 2023 12:00amStart: 08-10-2023 End: 45-53-6713Osqlchhdj 10 mg tablet Active MG PO October 06, 2023 12:00am Complies with drug therapygabapentin 300 mg oral capsule (20 sources)Anti-epileptic AgentStart: 49-14-0546utww 2 capsules by mouth three times daily as neededGabapentin 300 mg capsule Active 600 MG PO Three times daily as needed December 26, 2023 10:04am Complies with drug therapyStart: 16-68-8350fari 600 mg by mouth three times dailyGabapentin Active 600 MG PO Three times daily December 26, 2023 10:04amStart: 10-06-2023 End: 41-22-7085Nqcfrpcwqn Discontinued MG PO October 06, 2023 12:00am December 26, 2023 10:06amStart: 08-10-2023 End: 15-54-8395Wtbcrjlccr 300 mg capsule Discontinued MG PO October 06, 2023 12:00am December 26, 2023 10:06am24 hr isosorbide mononitrate 120 mg extended release oral tablet (20 sources)Nitrate VasodilatorStart: 05-21-2024 End: 52-28-7164dotc 1 tablet by mouth once daily in the morningisosorbide mononitrate ER (Imdur) 120 MG 24 hr tablet Indications: 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 , Essential hypertension Take 1 tablet (120 mg) by mouth Daily Do not crush or chew. Take 120 mg by mouth in the morning. Do not crush or chew. . 90 tablet 1 09/11/2024 12/10/2024 ActiveStart: 39-59-7466iqgr 1 tablet by mouth every twenty-four hoursIsosorbide Mononitrate 120 mg tablet extended release 24 hr Active MG PO October 06, 2023 12:00am Complies with drug therapyStart: 08-10-2023 End: 76-82-8003wfkl 1 tablet by mouth once daily in the morningisosorbide mononitrate ER (Imdur) 120 MG 24 hr tablet Indications: 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 (CMS/HCC) , Essential hypertension (CMS/HCC) Take 1 tablet (120 mg) by mouth Daily Do not crush or chew. Take 120 mg by mouth in the morning. Do not crush or chew. . 90 tablet 1 11/22/2023 Activelevothyroxine sodium 0.075 mg oral tablet (20 sources)l-ThyroxineStart: 29-44-4700Johmlswbnzdmi Active MCG PO October 06, 2023 12:00amStart: 08-10-2023 End: 82-11-7761mcov 1 tablet by mouth before mealtimelevothyroxine (Synthroid, Levoxyl) 75 MCG tablet Indications: Hypothyroidism (acquired) Take 1 tablet (75 mcg) by mouth in the morning. Take before meals. 90 tablet 1 09/11/2024 12/10/2024 Activelisinopril 20 mg oral tablet (20 sources)Angiotensin Converting Enzyme InhibitorStart: 27-91-1476nikt 1 tablet by mouth twice dailyLisinopril 20 mg tablet Active 20 MG PO Twice daily December 12, 2024 7:02am Complies with drug therapyStart: 30-47-2677Vhahcljyvm Active MG PO October 06, 2023 12:00amStart: 08-10-2023 End: 80-92-8711xplc 1 tablet by mouth in the morninglisinopril 20 MG tablet Indications: Primary hypertension , Essential hypertension Take 1 tablet (20 mg) by mouth in the morning and 1 tablet (20 mg) before bedtime. 180 tablet 1 09/11/2024 12/10/2024 Activemetoprolol tartrate 25 mg oral tablet (20 sources)beta-Adrenergic BlockerStart: 05-21-2024 End: 34-69-9861tvdn 1 tablet by mouth twice dailyMetoprolol Tartrate 25 mg tablet Active 25 MG PO Twice daily December 11, 2024 12:00am Complies with drug therapyStart: 05-21-2024 End: 26-68-4974zuzk 1 tablet by mouth in the morningmetoprolol tartrate (Lopressor) 100 MG tablet Indications: Primary hypertension , Essential hyperten dominguez Take 1 tablet (100 mg) by mouth in the morning and 1 tablet (100 mg) before bedtime. 180 tablet 1 09/11/2024 12/10/2024 ActiveStart: 03-14-2024 End: 87-47-3010mzvt 1 tablet by mouth in the morningmetoprolol tartrate (Lopressor) 25 MG tablet Indications: Essential hypertension (CMS/HCC) Take 1 ta blet (25 mg) by mouth in the morning and 1 tablet (25 mg) before bedtime. 60 tablet 1 03/14/2024 04/13/2024 ActiveStart: 01-13-2024 End: 23-80-6328qvuf 1 tablet by mouth in the morningmetoprolol tartrate (Lopressor) 25 MG tablet Indications: Essential hypertension (CMS/HCC) Take 1 ta blet (25 mg) by mouth in the morning and 1 tablet (25 mg) before bedtime. 60 tablet 1 01/13/2024 ActiveStart: 19-24-5209Wivxmpbztq Tartrate 100 mg tablet Active 125 MG PO Twice daily December 26, 2023 10:05am Complies with drug therapyStart: 80-73-7432nlpo 125 mg by mouth twice dailyMetoprolol Tartrate Active 125 MG PO Twice daily December 26, 2023 10:05amStart: 10-06-2023 End: 92-04-9811Qrzufvwaiq Tartrate Discontinued MG PO October 06, 2023 12:00am December 26, 2023 10:06amStart: 08-10-2023 End: 95-58-5255ueej 1 tablet by mouth in the morningmetoprolol tartrate (Lopressor) 25 MG tablet Indications: Essential hypertension (CMS/HCC) Take 1 ta blet (25 mg) by mouth in the morning and 1 tablet (25 mg) before bedtime. 60 tablet 1 11/22/2023 12/22/2023 ActiveStart: 08-10-2023 End: 67-67-1355Rfukdpjzzj Tartrate 100 mg tablet Discontinued MG PO October 06, 2023 12:00am December 26, 2023 10:06amnitroglycerin 0.4 mg sublingual tablet (20 sources)Nitrate VasodilatorStart: 45-40-1078Clzfuezotbipk Active MG SUBLINGUAL December 26, 2023 12:00amStart: 05-10-2023 End: 41-72-3093Xvbrtssdnxncp 0.4 mg tablet, sublingual Active MG SUBLINGUAL December 26, 2023 12:00am Complies with drug therapyNitroglycerin 0.4 mg tablet, sublingual (1 source)Start: 96-63-0748Dqxzajvbnexrv 0.4 mg tablet, sublingual Active MG SUBLINGUAL December 25, 2023 11:00pmtiZANidine 4 mg oral tablet (20 sources)Central alpha-2 Adrenergic AgonistStart: 16-18-9965Wqdqsylmel Active MG PO October 06, 2023 12:00amStart: 21-33-1460ntOOWqbdsh (Zanaflex) 4 MG tablet Indications: Trapezius muscle spasm Take 1 tablet (4 mg) by mouthas needed at bedtime for muscle spasms for up to 15 days May cut pill in half and take 1/2 pill at bedtime 15 tablet 1 08/10/2023 Activeverapamil hydrochloride 80 mg oral tablet (20 sources)Calcium Channel BlockerStart: 64-17-6888Nvjoqcumq Active MG PO October 06, 2023 12:00amStart: 08-10-2023 End: 66-49-8423Hhmqmqomh 80 mg tablet Active MG PO October 06, 2023 12:00am Complies with drug therapy Problems Active Problems Problem ClassificationProblemDateDocumented DateEpisodic/ChronicAcute myocardial infarction (20 sources)Myocardial infarction; Translations: [Acute myocardial infarction, unspecified]Onset: 628998-30-4626ZeustsjFwzdeojc atherosclerosis and other heart disease (20 sources)Atherosclerotic heart disease of [place] coronary artery without angina pectoris; Translations: [Angina pectoris]Onset: ChronicDisorders of lipid metabolism (20 sources)Pure hyperglyceridemia; Translations: [Hyperlipidemia, unspecified] Onset: 79-16-2174JjktvemUuixiltrup disorders (20 sources)Gastroesophageal reflux disease; Translations: [Gastro-esophageal reflux disease without esophagitis]Onset: 998508-80-5164JnocfdtKqucpypcn hypertension (20 sources)Essential (primary) hypertension; Translations: [Hypertensive disorder]Onset: 92-43-8259FhtqodmCezv and other crystal arthropathies (20 sources)Gout, unspecified; Translations: [Primary gout]Onset: 01-26-2022 89-31-4727GqxrscaFsharcm and fatigue (1 source)Other fatigue; Translations: [OTHER FATIGUE]Onset: 65-87-6221Eebiwrfw Menstrual disorders (20 sources)Menorrhagia; Translations: [Excessive and frequent menstruation with regular cycle]Onset: 073409-26-6828IczjaoxDqcbnvhgqip deficiencies (20 sources)Vitamin D deficiency; Translations: [Vitamin D deficiency, unspecified]Onset: 723618-71-0753QagqvcuCqhae connective tissue disease (7 sources)Pain in upper limb; Translations: [Pain in arm, unspecified] 80-12-9298YawdgghoOvwzi connective tissue disease (12 sources)Pain in arm, unspecified; Translations: [Pain in limb]10-06-2023 EpisodicOther connective tissue disease (1 source)Pain in right arm; Translations: [Pain in right arm]Onset: 03-02-2024 EpisodicOther nervous system disorders (7 sources)Ulnar neuropathy; Translations: [Lesion of ulnar nerve, unspecified upper limb]53-73-2247NuschezBwpkz nervous system disorders (11 sources)Lesion of ulnar nerve, unspecified upper limb; Translations: [Lesion of ulnar nerve]Onset: 852030-38-8317IorhzomHtdfv nervous system disorders (20 sources)Neuropathy; Translations: [Polyneuropathy, unspecified]Onset: 616512-32-6831HludmyeEdvfb nervous system disorders (20 sources)Sensory neuropathy; Translations: [Polyneuropathy, unspecified] Onset: 476511-65-5580DttkzoxHprcn nervous system disorders (3 sources)Idiopathic peripheral neuropathy; Translations: [Hereditary and idiopathic neuropathy, unspecified]52-85-7550BfpniezRspiv nervous system disorders (2 sources)Numbness and tingling sensation of skin; Translations: [Anesthesia of skin]52-14-3980UuxpqyclJjlcr non-traumatic joint disorders (2 sources)Joint pain; Translations: [Pain in unspecified joint]03-26-2024 EpisodicOther nutritional; endocrine; and metabolic disorders (1 source)Overweight; Translations: [OVERWEIGHT]Onset: 05-65-1670QirlwonoRtqwv upper respiratory disease (20 sources)Seasonal allergy; Translations: [Other seasonal allergic rhinitis] Onset: 828096-00-6226JgxjmsnWukjfhhsnu and visceral atherosclerosis (20 sources)Peripheral vascular disease, unspecified; Translations: [Peripheral vascular disease, unspecified]Onset: 252099-48-1047PgxqtwiWfxzglez codes; unclassified (20 sources)Obstructive sleep apnea syndrome; Translations: [Obstructive sleep apnea (adult) (pediatric)]Onset: 552223-82-4017NtzjimvWppllkqbdkd; intervertebral disc disorders; other back problems (20 sources)Pain in cervical spine; Translations: [Cervical disc disorder, unspecified, unspecified cervical region]Onset: hronic Substance-related disorders (12 sources)Tobacco dependence caused by cigarettes; Translations: [Nicotine dependence, cigarettes, uncomplicated]Onset: 940622-01-7185LyfghjfHvvlofi disorders (20 sources)Hypothyroidism, unspecified; Translations: [Acquired hypothyroidism] Onset: 79-62-7680Drelrqj Past or Other Problems Problem ClassificationProblemDateDocumented DateEpisodic/ChronicChronic obstructive pulmonary disease and bronchiectasis (20 sources)Bronchitis; Translations: [Bronchitis, not specified as acute or chronic]Onset: 02-07-2023 Resolved: 659624-99-0655EgydvqnaNoih; stupor; and brain damage (20 sources)Daytime somnolence; Translations: [Somnolence]Onset: 09-26-2023 75-48-8257IgggzyctDgkrxlku of lower limb (20 sources)Closed fracture of head of fibula; Translations: [Other fracture of upper and lower end of unspecified fibula, subsequent encounter for closed fracture with routine healing]Onset: 05-10-2023 Resolved: 417139-11-1687XrqgbrepLiiidzvakqdlj symptoms and ill-defined conditions (20 sources)Asymptomatic microscopic hematuria; Translations: [Asymptomatic microscopic hematuria]Onset: 610827-03-5164XmclkdkqRwlmdwqttja deficiencies (20 sources)Cobalamin deficiency; Translations: [Deficiency of other specified B group vitamins]Onset: 454637-95-6163NajnvxxbQzyfw connective tissue disease (20 sources)Pain of bilateral hands; Translations: [Pain in right hand]Onset: 218115-72-0918CzuunynsYbhvc connective tissue disease (20 sources)Muscle spasm of cervical muscle of neck; Translations: [Other muscle spasm]Onset: 05-10-2023 Resolved: 802405-27-9373AdkdffzmQpszc lower respiratory disease (20 sources)Snoring; Translations: [Snoring]Onset: 512205-80-9964Awmnmrjv Other nervous system disorders (20 sources)Paresthesia; Translations: [Paresthesia of skin]Onset: 09-26-2023 02-02-8680VnmenqhsBvsmmhwo codes; unclassified (20 sources)Finding of systemic arterial pressure; Translations: [Other general symptoms and signs]Onset: 283562-90-5880GqvhpontAxehzjib codes; unclassified (20 sources)Tobacco user; Translations: [Tobacco use]Onset: 05-10-2023 Resolved: 718787-32-0837RwazscciVbgkqkmpfma; intervertebral disc disorders; other back problems (20 sources)Cervical radiculopathy; Translations: [Radiculopathy, cervical region]Onset: 005874-81-9056Owultcha Results Test NameValueInterpretationReference RangeFacilityXR Hand - bilateral 2 Viewson 16-71-7332[place], [place] [address] XRay Report Signed Patient: DIANE MENDOZA MR#: [id number] : 1970 Acct:[id number] Age/Sex: 54 / F ADM Date: 10/10/24 Loc: [facility] Attending Dr: Carmela Lester NP Ordering Physician: Carmela Lester NP Date of Service: 10/10/24 Procedure(s): XR hand ALYSSA 2V Accession Number(s): [id number] cc: Carmela Lester NP [place] [id number] Patient Name: DIANE MENDOZA MRN: [id number] date: 1970 Sex: F Assigned Patient Location: RAD Current Patient Location: RAD Accession/Order Number: [id number] Exam Date: 10/10/2024 14:34 Report Date: 10/10/2024 [...] Jr., D.O. 10/10/2024 2:35 PM Dictation Location: [place] [address] Electronically authenticated by: [id number] Y Date: 10/10/2024 14:35 Dictated By: Supa Morales M.D. Signed By: 10/10/247 DD/ 34 TD/TT: Direct Support Professional Caregiver:TBHRadiology, Radiologist, - 10/10/2024 [place] [address] XRay Report Signed Patient: DIANE MENDOZA MR#: [id number] : 1970 Acct:[id number] Age/Sex: 54 / F ADM Date: 10/10/24 Loc: [facility] Attending Dr: Carmela Lester NP Ordering Physician: Carmela Lester NP Date of Service: 10/10/24 Procedure(s): XR hand ALYSSA 2V Accession Number(s): [id number] cc: Carmela Lester NP [place] [id number] Patient Name: DIANE MENDOZA MRN: [id number] date: 1970 Sex: F Assigned Patient Location: [facility] Current Patient Location: [facility] Accession/Order Number: [id number] Exam Date: 10/10/2024 14:34 Report Date: 10/10/2024 [...] Jr., D.O. 10/10/2024 2:35 PM [facility]ict[facility] Electronically authenticated by: [id number] Y Date: 10/10/2024 14:35 Dictated By: Supa Morales M.D. Signed By: 10/10/24 143 DD/ 34 TD/TT: Direct Support Professional Caregiver: LILY HealthcareRadiology Study observation (narrative)[facility] MonettXR Hand - bilateral 2 ViewsOrdered By: Radiologist Radiology on 50-22-7970SFOLCox Monett Work Phone: all CBC WITH AUTO DIFFon 48-54-5599UZHIIJTTW ABSOLUTE AUTO0.1NOMS HealthcareBasophils/100 WBC (Bld)1.5 %0.2 - 2.0 %[facility] Eosinophils/100 WBC (Bld)2.6 %0.9 - 7.0 %[facility]ox MonettErythrocyte distribution width (RBC) [Ratio]11.8 %11.0 - 15.0 %[facility]ox MonettHematocrit (Bld) [Volume fraction]41.2 %36.0 - 48.0 %[facility] MonettHemoglobin (Bld) [Mass/Vol]13.7 g/dL 12.0 - 16.0 g/dLCox MonettIMMATURE GRANULOCYTES ABS AUTO0.02NOWashington [facility] Immature granulocytes/100 WBC (Bld)0.3 %0.0 - 0.5 %Cox MonettLYMPHOCYTES ABSOLUTE AUTO2.1NOMS HealthcareLymphocytes/100 WBC (Bld)35.1 %20.5 - 60.0 %[facility] HealthH (RBC) [Entitic mass]31.6 pg26.7 - 34.0 pgNOBarnes-Jewish Saint Peters HospitalHC (RBC) [Mass/Vol]33.3 g/dL29.9 - 35.2 g/dLNOBarnes-Jewish Saint Peters HospitalV (RBC) [Entitic vol]95.2 fL 81.0 - 99.0 fLNONM HealthcareMONOCYTES ABSOLUTE AUTO0.6NOMS Healthcare Monocytes/100 WBC (Bld)9.4 %1.7 - 12.0 %NOM HealthcareNEUTROPHILS ABSOLUTE AUTO 3.1NOMS HealthcareNeutrophils/100 WBC (Bld)51.1 %43.0 - 75.0 %[facility] Healthcare Platelet mean volume (Bld) [Entitic vol]11.5 fL9.5 - 13.5 fLCox MonettTBH EO #0.2NOMS HealthcareTBH NKC707FPGY HealthcareTBH RBC4.33NONM HealthcareTBH WBC 6NONM HealthcareCLINISYNCNOMS HealthcareOffice Visiton 61-19-3067Ajkfec-up visit [id number] Diane Mendoza 1970 F Date Provider Department Center 06/04/2024 [facility] Family History Problem Relation Age of Onset Coronary artery disease Father Family Status - Relation Status Age at Father Level of Service:76275 [place] OFFICE/OUTPATIENT ESTABLISHED LOW MDM 20 [facility] HealthEMG 2 Extremitieson 26-15-0048AMX/NCS BLE Moderate left chronic S1 radicNOMS HealthcareNOMS HealthcareNVC 9-10 Nerveson 61-96-1517JHE/NCS BLE Moderate left chronic S1 radicNOMS HealthcareNVC 9-10 NervesOrdered By: Den Chávez on 11-48-1784XACW Healthcare Work Phone: aLL FOLIC ACIDon 90-71-3523QGJGER1.3 ng/mLLow8.60 - 58.90 ng/mLNOMS HealthcareInterpretation and review of laboratory results AbnormalNOMS HealthcareCLINISYNCNOMS HealthcareMR head/brain wo/w conon 31-11-1872PK head/brain wo/w [address] [address] MRI Report Signed Patient: Diane Mendoza MR#: [id number] 98 : 1970 Acct:[id number] Age/Sex: 54 / F ADM Date: 03/02/24 Loc: MR Room: Type: [facility] Attending Dr: Milton Appiah DO Copies to: [...] Gini Solis M.D.03/02/2024 11:22 PM Dictation Location: [place] [address] Transcribed By: [facility] 03/02/242321 Dictated By: Gini Solis MD 03/02/242311 Signed By: 03/02/24 [facility] cervical spine wo [facility] 93-85-6568WM cervical spine wo [facility] [address] [place] [address] [place] [address] MRI Report Signed Patient: Diane Mendoza MR#: [id number] 98 : 1970 Acct:[id number] Age/Sex: 53 / F ADM Date: 01/13/24 Loc: MR Room: Type: [facility] Attending Dr: Milton Appiah DO Copies to: [...] Dank Camara M.D.01/13/2024 9:02 PM Dictation Location: [place] [address] Transcribed By: [facility] 01/13/242101 Dictated By: Dank Camara DO 01/13/242053 Signed By: 01/13/242101[facility] Physician GroupXR cerv spine AP/LAT/FLX/EXTon 7779KF cerv spine AP/LAT/FLX/EXTTHE [facility] [place] [address] [place] [address] XRay Report Signed Patient: Diane Mendoza MR#: [id number] 98 : 1970 Acct:[id number] Age/Sex: 53 / F ADM Date: 10/27/23 Loc: XD Room: Type: [facility] Attending Dr: Loly Comer APRN Copies to: [...] Dank Camara M.D.10/27/2023 4:13 PM Dictation Location: [place] [address] Transcribed By: [facility] 10/27/23 1613 Dictated By: Dank Camara DO 10/27/23 1611 Signed By: 10/27/[address] [place] [address] Physician GroupMR Cervical spine WO contraston 46-32-8126Juy[place], [place] [address] Magnetic Resonance Report Signed Patient: DIANE MENDOZA MR#: [id number] : 1970 Acct:[id number] Age/Sex: 53 / F ADM Date: 09/02/23 Loc: MRI Attending Dr: Carmela Lester NP Ordering Physician: Carmela Lester NP Date of Service: 09/02/23 Procedure(s): MR cervical spine wo con Accession Number(s): [id number] cc: Carmela Lester NP [place] [id number] Patient Name: DIANE MENDOZA MRN: [id number] date: 1970 Sex: F Assigned Patient Location: MRI Current Patient Location: Accession/Order Number: [id number] Exam Date: 09/02/2023 14:05 Report Date: 09/05/2023 [...] Signed By: 09/05/23 0654 DD/ 0652 TD/TT: Direct Support Professional Caregiver:SOMMERadiology, Radiologist, - 09/05/2023 [place] [address] Magnetic Resonance Report Signed Patient: DIANE MENDOZA MR#: [id number] : 1970 Acct:[id number] Age/Sex: 53 / F ADM Date: 09/02/23 Loc: MRI Attending Dr: Carmela Lester NP Ordering Physician: Caremla Lester NP Date of Service: 09/02/23 Procedure(s): MR cervical spine wo con Accession Number(s): [id number] cc: Carmela Lester NP [place] [address] Patient Name: DIANE MENDOZA MRN: [facility]:[id number] date: 1970 Sex: F Assigned Patient Location: MRI Current Patient Location: Accession/Order Number: [id number] Exam Date: 09/02/2023 14:05 Report Date: 09/05/2023 [...] M.D. Signed By: 09/05/2354 DD/ 1 TD/TT: Direct Support Professional Caregiver: LILY HealthcareRadiology Study observation (narrative)[facility] Cervical spine WO contrastOrdered By: Radiologist Radiology on 91-67-8709QUVK Healthcare Work Phone: Office Visiton 76-00-6180Ogalyu-up [id number] Diane Mendoza 1970 F Date Provider Department Center 06/08/[address] [place] [address], [facility] Family History Problem Relation Age of Onset Coronary artery disease Father Family Status - Relation Status Age at Father Level of Service:62847 [place] OFFICE/OUTPATIENT [facility] 30 MINUTESNormal [facility] HospitalCA ECHO DOPPLER COMPLETEon 72-48-9254HxhArrey, [place] [address] Cardiology Report Signed Patient: DIANE MENDOZA MR#: [id number] : 1970 Acct:[id number] Age/Sex: 53 / F ADM Date: 05/26/23 Loc: CARD Attending Dr: Carmela Lester NP Ordering Physician: Carmela Lester NP Date of Service: 05/26/23 Procedure(s): CA echo doppler complete Accession Number(s): [id number] cc: Carmela Lester NP Patient Name: DIANE MENDOZA MR#: [id number] : 1970 Exam Date: 05/26/2023 Ordering Doctor: DEREK Lester AIR VALUE TESTER ECHOCARDIOGRAM REPORT PROCEDURE: CA ECHO DOPPLER COMPLETE INDICATIONS: Uncontrolled hypertension, CABGx1, [place] x 2, former smoker COMPARISON: None. DESCRIPTION: [...] not included)...TBHRadiology, Radiologist, MD - 05/27/2023 [place] [address] Cardiology Report Signed Patient: DIANE MENDOZA MR#: [id number] : 1970 Acct:[id number] Age/Sex: 53 / F ADM Date: 05/26/23 Loc: CARD Attending Dr: Carmela Lester NP Ordering Physician: Carmela Lester NP Date of Service: 05/26/23 Procedure(s): CA echo doppler complete Accession Number(s): [id number] cc: Carmela Lester NP Patient Name: DIANE MENDOZA MR#: [id number] : 1970 Exam Date: 05/26/2023 Ordering Doctor: DEREK Lester CNP ECHOCARDIOGRAM REPORT PROCEDURE: CA ECHO DOPPLER COMPLETE INDICATIONS: Uncontrolled hypertension, CABGx1, [place] x 2, former smoker COMPARISON: None. DESCRIPTION: [...] Signed By: 05/27/23 144 DD/ 42 TD/TT: Direct Support Professional Caregiver: [facility] (narrative)[facility] ECHO DOPPLER COMPLETEOrdered By: Radiologist Radiology on [id number] Work Phone: cbc AUTO DIFFon [phone] #0.1 103/ulNormal 0.0-0.1The [facility] HospitalComment on above:Performed By: #### CBC #### [facility] [address] [address] [address] Candy Resendizls/100 WBC (Bld)0.6 %Normal0.2-2.0The [facility] Comment on above:Performed By: #### CBC #### [facility] [address] [address] [address] Candy Kamara #0.3 103/ulNormal0.0-0.7The [facility] HospitalComment on above: Performed By: #### CBC #### [facility] [address] [address] [address] Candy Villagranosinophils/100 WBC (Bld)2.8 %Normal0.9-7.0The [facility] Comment on above:Performed By: #### CBC #### [facility] [address] [place] [address] Dr. Candy Villagranrythrocyte distribution width (RBC) [Ratio]11.9 %Kvuvhu65.0-15.0 The [facility] HospitalComment on above:Performed By: #### CBC #### [facility] [address] [place] [address] Dr. Candy CortezHematocrit (Bld) [Volume fraction]39.5 %Mwrmzs02.0-48.0The [facility] HospitalComment on above:Performed By: #### CBC #### [facility] [address] [place] [address] Dr. Candy CortezHemoglobin (Bld) [Mass/Vol]12.8 g/oAIaczuc42.0-16.0The [facility] HospitalComment on above:Performed By: #### CBC #### [facility] [address] [place] [address] Dr. Candy Martines #0.04 10e3/ulCritically high0.00-0.03The [facility] Comment on above:Performed By: #### CBC #### [facility] [address] [place] [address] Dr. Candy Martines %0.4 %Normal0.0-0.5The [facility] HospitalComment on above: Performed By: #### CBC #### [facility] [address] [place] [address] Dr. Candy NairH #3.2 103/ulNormal1.2-3.8The [facility] HospitalComment on above:Performed By: #### CBC #### [facility] [address] [place] [address] Dr. Candy Sunmphocytes/100 WBC (Bld)33.9 %Inzzpq47.5-60.0The [facility] HospitalComment on above:Performed By: #### CBC #### [facility] [address] [place] [address] Dr. Candy Manzanares DIFF REQNONormalThe [facility] HospitalComment on above: Performed By: #### CBC #### [facility] [address] [place] [address] Dr. Candy Cervantes (RBC) [Entitic mass]31.3 gvCihsbz96.7-34.0The [facility] HospitalComment on above:Performed By: #### CBC #### [facility] [address] [place] [address] Dr. Candy Cervantes (RBC) [Mass/Vol]32.4 g/oHNieund50.9-35.2The [facility] HospitalComment on above:Performed By: #### CBC #### [facility] [address] [place] [address] Dr. Candy Cervantes (RBC) [Entitic vol]96.6 gDRdsaxl26.0-99.0The [facility] HospitalComment on above:Performed By: #### CBC #### [facility] [address] [place] [address] Dr. Candy Glass #0.8 103/ulNormal0.3-0.8The [facility] HospitalComment on above:Performed By: #### CBC #### [facility] [address] [place] [address] Dr. Candy Linkocytes/100 WBC (Bld)8.3 %Normal1.7-12.0The [facility] Comment on above:Performed By: #### CBC #### [facility] [address] [place] [address] Dr. Candy Melendez #5.1 103/ulNormal1.4-6.5The [facility] HospitalComment on above:Performed By: #### CBC #### [facility] [address] [place] [address] Dr. Candy Moctezumautrophils/100 WBC (Bld)54.0 %Rmtrgu72.0-75.0The [facility] HospitalComment on above:Performed By: #### CBC #### [facility] [address] [place] [address] Dr. Candy Abel mean volume (Bld) [Entitic vol]11.6 fLNormal9.5-13.5The [facility] HospitalComment on above:Performed By: #### CBC #### [facility] [address] [place] [address] Dr. Candy TurpinT258 103/xjRzlpup279-345Xjn [facility] HospitalComment on above: Performed By: #### CBC #### [facility] [address] [place] [address] Dr. Candy CortezRBC4.09 106/ulCritically low4.20-5.40The [facility] HospitalComment on above:Performed By: #### CBC #### [facility] [address] [place] [address] Dr. Candy CortezWBC9.4 103/ulNormal4.0-11.0The [facility] HospitalComment on above: Performed By: #### CBC #### [facility] [address] [place] [address] Dr. Candy Castañeda T4on 45-58-1616Fdbh T4 [Mass/Vol]0.91 ng/dLNormal0.76-1.46 The [facility] HospitalComascension [facility] on above:Performed By: #### TSH, URIC, CMP, LIPID #### [facility] [address] [place] [address] Dr. Candy Mitchell 89-16-3525Qozm [Mass/Vol]106.0 ug/qWIywnjm45.0-170.0The [facility] HospitalComment on above:Performed By: #### TSH, URIC, CMP, LIPID #### [facility] [address] [place] [address] Dr. Candy CortezPROF 14(COMP METB)on 37-26-4973Ruriubc [Mass/Vol]3.7 g/dLNormal 3.4-5.0The [facility] HospitalComment on above:Performed By: #### TSH, CMP #### [facility] [address] [address] [address] Candy CortezAlbumin/Globulin [Mass ratio]1.0 {ratio}NormalThe [facility] - Dublinment on above:Performed By: #### TSH, CMP #### [facility] [address] [address] [address] Candy Figueredo [Catalytic activity/Vol]84 U/PRonazu12-635Iwz [facility] HospitalComment on above:Performed By: #### TSH, CMP #### [facility] [address] [address] [address] Candy Yap [Catalytic activity/Vol]36 U/WIovtjk21-57Mjh [facility] - Dublinment on above:Performed By: #### TSH, CMP #### [facility] [address] [address] [address] Candy Camaraon gap [Moles/Vol]11.6 mmol/LNormalThe [facility] Comment on above:Performed By: #### TSH, CMP #### [facility] [address] [address] [address] Candy Sparks [Catalytic activity/Vol]30 U/GXarnwn32-72Eio [facility] on above:Performed By: #### TSH, CMP #### [facility] [address] [address] [address] Candy CortezBilirubin [Mass/Vol]0.4 mg/dLNormal0.2-1.0The [facility] Comment on above:Performed By: #### TSH, CMP #### [facility] [address] [address] [address] Candy CortezCalcium [Mass/Vol]9.4 mg/dLNormal8.5-10.1The [facility] Comment on above:Performed By: #### TSH, CMP #### [facility] [address] [address] [address] Candy CortezChloride [Moles/Vol]105 mmol/SGlatjv12-114Qhj [facility] Comment on above:Performed By: #### TSH, CMP #### [facility] [address] [address] [address] Candy CortezCO2 [Moles/Vol]29.2 mmol/KPwxfdd68.0-32.0The [facility] Comment on above:Performed By: #### TSH, CMP #### [facility] [address] [address] [address] Candy CortezCreatinine [Mass/Vol]0.78 mg/dLNormal0.55-1.02The [facility] HospitalComment on above:Performed By: #### TSH, CMP #### [facility] [address] [place] [address] Dr. Candy VillagranGFR-AF SCOTTISH>60Normal>=60The [facility] HospitalComment on above:Performed By: #### TSH, CMP #### [facility] [address] [address] [address] Candy King-NON AF SCOTTISH>60Normal>=60The [facility] HospitalComment on above:Performed By: #### TSH, CMP #### [facility] [address] [address] [address] Candy CortezGlobulin (S) [Mass/Vol]3.8 g/dLNormalThe [facility] HospitalComment on above:Performed By: #### TSH, CMP #### [facility] [address] [address] [address] Candy CortezGlucose [Mass/Vol]95 mg/hQLoqphy74-335YtdThe [facility] Comment on above:Performed By: #### TSH, CMP #### [facility] [address] [address] [address] Candy CortezPotassium [Moles/Vol]4.8 mmol/LNormal3.5-5.1The [facility] Comment on above:Performed By: #### TSH, CMP #### [facility] [address] [address] [address] Candy CortezProtein [Mass/Vol]7.5 g/dLNormal6.4-8.2The [facility] Comment on above:Performed By: #### TSH, CMP #### [facility] [address] [address] [address] Candy Loeraum [Moles/Vol]141 mmol/OFumhfu941-020Avi [facility] Comment on above:Performed By: #### TSH, CMP #### [facility] [address] [place] [address] Dr. Candy Miranda nitrogen [Mass/Vol]13.0 mg/dLNormal7.0-18.0The [facility] HospitalComment on above:Performed By: #### TSH, CMP #### [facility] [address] [place] [address] Dr. Candy Miranda nitrogen/Creatinine [Mass ratio]16.7 mg/mgNoalThWestern Reserve HospitalComment on above:Performed By: #### TSH, CMP #### [facility] [address] [place] [address] Dr. Candy Muñoz 62-20-5067OJO2.818 uIU/mLNormal0.358-3.740The [facility] HospitalComment on above:Performed By: #### TSH, CMP #### [facility] [address] [place] [address] Dr. Candy Block RANDOM W/MICROSCOPICon 31-98-5135QZUXAPBIWDKM SEENNormalNONE SEENThe [facility] HospitalComment on above:Performed By: #### UAMIC #### [facility] [address] [place] [address] Dr. Candy Luciano Ql (U)NegativeNormalNEGATIVEThe [facility] Comment on above:Performed By: #### UAMIC #### [facility] [address] [place] [address] Dr. Candy Anna SEENNormalNONE SEENThe [facility] HospitalComment on above:Performed By: #### UAMIC #### [facility] [address] [place] [address] Dr. Candy Meeksarity (U)CLEARNormalCLEARThe [facility] HospitalComment on above: Performed By: #### UAMIC #### [facility] [address] [address] [address] Candy Mantilla (U)LT. YELLOWNormalYELLOWThe [facility] HospitalComment on above:Performed By: #### UAMIC #### [facility] [address] [address] [address] Candy CortezCrystals LM Nom (Urine sed)NONE SEENNormalNONE SEENThe [facility] HospitalComment on above:Performed By: #### UAMIC #### [facility] [address] [address] [address] Gupta ChangEpithelial cells LM Ql (Urine sed)RARENormalNONE SEEN /RAREThe [facility] HospitalComment on above:Performed By: #### UAMIC #### [facility] [address] [address] [address] Candy CortezGlucose Ql (U)NegativeNormalNEGATIVEThe [facility] HospitalComment on above:Performed By: #### UAMIC #### [facility] [address] [address] [address] Candy CortezHemoglobin Ql (U)NegativeNormalNEGATIVERegency Hospital Cleveland West on above:Performed By: #### UAMIC #### [facility] [address] [address] [address] Candy CortezKetones Ql (U)NegativeNormalNEGATIVEThe [facility] HospitalComment on above:Performed By: #### UAMIC #### [facility] [address] [address] [address] Candy CortezLEUKOCYTESNegativeNormalNEGATIVEThe [facility] HospitalComment on above:Performed By: #### UAMIC #### [facility] [address] [address] [address] Candy CortezMUCOUSNONE SEENNormalNONE SEENThe [facility] HospitalComment on above:Performed By: #### UAMIC #### [facility] [address] [address] [address] Candy Toney Ql (U)NegativeNormalNEGATIVEThe [facility] HospitalComment on above:Performed By: #### UAMIC #### [facility] [address] [place] [address] Dr. Candy CortezpH (U)7.0 [pH]Normal5-9The [facility] HospitalComment on above: Performed By: #### UAMIC #### [facility] [address] [place] [address] Dr. Candy CortezJblnsIQG8-3Suuhbm3-6Uqm [facility] HospitalComment on above:Performed By: #### UAMIC #### [facility] [address] [place] [address] Dr. Candy CortezSPEC GRAVITY<=1.078Uwvpsivp7.005-<=1.025The [facility] Comment on above:Performed By: #### UAMIC #### [facility] [address] [place] [address] Dr. Candy CortezUA PROTEINNegativeNormalNEGATIVE/ TRACEThe [facility] Comment on above:Performed By: #### UAMIC #### [facility] [address] [place] [address] Dr. Candy Hutchisonbilinogen Qn (U)0.2 {Nicko'U}/dLNormal0.2 - 1.0The [facility] HospitalComment on above:Performed By: #### UAMIC #### [facility] [address] [place] [address] Dr. Candy CortezWBC0-2AbnormalNONE SEENThe [facility] HospitalComment on above: Performed By: #### UAMIC #### [facility] [address] [place] [address] Dr. Candy CortezVITAMIN B12on 42-80-4979Okbbfmjhg (Vitamin B12) [Mass/Vol]201.0 pg/kLNbcmku918.0-986.0The [facility] HospitalComment on above:Performed By: #### TSH, URIC, CMP, LIPID #### [facility] [address] [place] [address] Dr. Candy CortezVITAMIN D 25 OHon 10-95-8662CSV D 25-OH14.6 ng/mLNormalThe Christ HospitalComment on above:Performed By: #### TSH, URIC, CMP, LIPID #### [facility] [address] [address] [address] Candy BACONSEE [facility] Health MiamisburgComment on above: Result Comment: <20 ng/mL Vit D deficient 20 - <30 ng/mL Vit D insufficient 30 - 100 ng/mL Vit D sufficient >100 ng/mL Potential ToxicityPerformed By: #### TSH, URIC, CMP, LIPID #### [facility] [address] [place] [address] Dr. Candy DavisID PROFILEon 49-42-0691MTLK-HDL RATIO NORMSEE [facility]burgComasc[facility] on above:Result Comment: 3.3 - 4.4 LOW RISK 4.4 - 7.1 AVERAGE RISK 7.1 - 11.0 MODERATE RISK >11.0 HIGH RISKPerformed By: #### TSH, URIC, CMP, LIPID #### [facility] [address] [place] [address] Dr. Candy Pedrozaesterol [Mass/Vol]162 mg/dLNormal<=200[facility] Comment on above:Performed By: #### TSH, URIC, CMP, LIPID #### [facility] [address] [address] [address] Candy CortezCholesterol in HDL [Mass/Vol]74 mg/dLCritically madl10-37YpkThe [facility] HospitalComment on above:Performed By: #### TSH, URIC, CMP, LIPID #### [facility] [address] [address] [address] Candy CortezCholesterol in LDL [Mass/Vol]54.8 mg/dLOhioHealth Mansfield HospitalComascension borg[facility] on above:Performed By: #### TSH, URIC, CMP, LIPID #### [facility] [address] [place] [address] Dr. Candy Pedrozaestertaylor.total/Cholesterol in HDL [Mass ratio]2.2 {ratio} NormalThe Yves HospitalComment on above:Performed By: #### TSH, URIC, CMP, LIPID #### [facility] [address] [address] [address] Candy Rondon NORMAL> or = 60 mg/dl - LOW CARDIOVASCULAR RISK <40 mg/dl - HIGH CARDIOVASCULAR RISKHolzer Health System on above:Performed By: #### TSH, URIC, CMP, LIPID #### [facility] [address] [address] [address] Candy Starks CALC NORMALSEE BELOWOhioHealth Mansfield HospitalComascension borg[facility] hospital on above:Result Comment: <100 mg/dl OPTIMAL 100 - 129 mg/dl NEAR OR ABOVE OPTIMAL 130 - 159 mg/dl BORDERLINE HIGH 160 - 189 mg/dl HIGH >190 mg/dl VERY HIGH Performed By: #### TSH, URIC, CMP, LIPID #### [facility] [address] [place] [address] Dr. Candy CortezTriglyceride [Mass/Vol]166 mg/dLCritically high<=150The [facility] on above:Performed By: #### TSH, URIC, CMP, LIPID #### [facility] [address] [address] [address] Candy RodriguezLDL CALC33.2 mg/dLHolzer Health System on above: Performed By: #### TSH, URIC, CMP, LIPID #### [facility] [address] [address] [address] Candy Woodward 05-69-3545AGI [Catalytic activity/Vol]32 U/NQesfwl60-56Chs [facility] on above:Performed By: #### TSH, URIC, CMP, LIPID #### [facility] [address] [address] [address] Candy Musa 97-70-1495KWF [Catalytic activity/Vol]52 U/IHpfrjd32-35Xrb [facility] on above:Performed By: #### TSH, URIC, CMP, LIPID #### [facility] [address] [address] [address] Candy CortezLIPID PROFILEon 72-23-5806SXZS-HDL RATIO NORMSDelaware County HospitalComment on above:Result Comment: 3.3 - 4.4 LOW RISK 4.4 - 7.1 AVERAGE RISK 7.1 - 11.0 MODERATE RISK >11.0 HIGH RISKPerformed By: #### TSH, URIC, CMP, LIPID #### [facility] [address] [place] [address] Dr. Candy CortezCholesterol [Mass/Vol]178 mg/dLNormal<=200The [facility] Comment on above:Performed By: #### TSH, URIC, CMP, LIPID #### [facility] [address] [place] [address] Dr. Candy CortezCholesterol in HDL [Mass/Vol]80 mg/dLCritically txgx48-14ApcThe Christ HospitalComment on above:Performed By: #### TSH, URIC, CMP, LIPID #### [facility] [address] [place] [address] Dr. Candy Pedrozaesterol in LDL [Mass/Vol]43.4 mg/dLOhioHealth Mansfield HospitalComment on above:Performed By: #### TSH, URIC, CMP, LIPID #### [facility] [address] [place] [address] Dr. Candy Chamorro.total/Cholesterol in HDL [Mass ratio]2.2 {ratio} NormalThe Christ HospitalComascension borg[facility] on above:Performed By: #### TSH, URIC, CMP, LIPID #### [facility] [address] [place] [address] Dr. Candy Rondon NORMAL> or = 60 mg/dl - LOW CARDIOVASCULAR RISK <40 mg/dl - HIGH CARDIOVASCULAR RISKOhioHealth Mansfield HospitalComment on above:Performed By: #### TSH, URIC, CMP, LIPID #### [facility] [address] [place] [address] Dr. Candy Starks CALC NORMALSEE [facility]burgCom[facility] on above:Result Comment: <100 mg/dl OPTIMAL 100 - 129 mg/dl NEAR OR ABOVE OPTIMAL 130 - 159 mg/dl BORDERLINE HIGH 160 - 189 mg/dl HIGH >190 mg/dl VERY HIGH Performed By: #### TSH, URIC, CMP, LIPID #### [facility] [address] [place] [address] Dr. Candy CortezTriglyceride [Mass/Vol]273 mg/dLCritically high<=150The [facility] HospitalComment on above:Performed By: #### TSH, URIC, CMP, LIPID #### [facility] [address] [place] [address] Dr. Candy CortezVLDL CALC54.6 mg/dLNormalThe [facility] HospitalComment on above: Performed By: #### TSH, URIC, CMP, LIPID #### [facility] [address] [place] [address] Dr. Candy Campbell AUTO DIFFon 78-21-1626YUSE #0.1 103/ulNormal0.0-0.1The [facility] HospitalComment on above:Performed By: #### CBC #### [facility] [address] [place] [address] Dr. Candy CortezBasophils/100 WBC (Bld)1.2 %Normal0.2-2.0[facility] Comment on above:Performed By: #### CBC #### [facility] [address] [place] [address] Dr. Candy Kamara #0.2 103/ulNormal0.0-0.7The [facility] HospitalComment on above: Performed By: #### CBC #### [facility] [address] [place] [address] Dr. Candy Villagranosinophils/100 WBC (Bld)2.8 %Normal0.9-7.0The [facility] Comment on above:Performed By: #### CBC #### [facility] [address] [place] [address] Dr. Candy Villagranrythrocyte distribution width (RBC) [Ratio]12.2 %Ffjqsl51.0-15.0 The [facility] HospitalComment on above:Performed By: #### CBC #### [facility] [address] [place] [address] Dr. Candy CortezHematocrit (Bld) [Volume fraction]41.0 %Aqsjgv87.0-48.0The [facility] HospitalComment on above:Performed By: #### CBC #### [facility] [address] [place] [address] Dr. Candy Loooglobin (Bld) [Mass/Vol]13.6 g/iGEqmboh24.0-16.0The [facility] HospitalComment on above:Performed By: #### CBC #### [facility] [address] [place] [address] Dr. Candy Martines #0.00 10e3/ulNormal0.00-0.03The [facility] HospitalComment on above:Performed By: #### CBC #### [facility] [address] [place] [address] Dr. Candy CortezIG %0.0 %Normal0.0-0.5The [facility] HospitalComment on above: Performed By: #### CBC #### [facility] [address] [place] [address] Dr. Candy Bragg #2.7 103/ulNormal1.2-3.8The [facility] HospitalComment on above:Performed By: #### CBC #### [facility] [address] [place] [address] Dr. Candy Sunmphocytes/100 WBC (Bld)47.5 %Sirgpn40.5-60.0The [facility] HospitalComment on above:Performed By: #### CBC #### [facility] [address] [place] [address] Dr. Candy CortezMANUAL DIFF REQNONormalThe [facility] Community HospitalComment on above: Performed By: #### CBC #### [facility] [address] [place] [address] Dr. Candy Black (RBC) [Entitic mass]32.5 pfGislyd10.7-34.0The [facility] HospitalComment on above:Performed By: #### CBC #### [facility] [address] [place] [address] Dr. Candy Cervantes (RBC) [Mass/Vol]33.2 g/wPQixnlg55.9-35.2The [facility] HospitalComment on above:Performed By: #### CBC #### [facility] [address] [address] [address] Candy CervantesV (RBC) [Entitic vol]97.9 eYBjfyxi15.0-99.0The [facility] HospitalComment on above:Performed By: #### CBC #### [facility] [address] [place] [address] Dr. Candy Glass #0.5 103/ulNormal0.3-0.8The [facility] HospitalComment on above:Performed By: #### CBC #### [facility] [address] [place] [address] Dr. Candy Linkocytes/100 WBC (Bld)8.4 %Normal1.7-12.0The [facility] Comment on above:Performed By: #### CBC #### [facility] [address] [place] [address] Dr. Candy Melendez #2.3 103/ulNormal1.4-6.5The [facility] HospitalComment on above:Performed By: #### CBC #### [facility] [address] [place] [address] Dr. Candy Moctezumautrophils/100 WBC (Bld)40.1 %Critically low43.0-75.0The [facility] HospitalComment on above:Performed By: #### CBC #### [facility] [address] [place] [address] Dr. Candy Joyalet mean volume (Bld) [Entitic vol]11.5 fLNormal9.5-13.5The [facility] HospitalComment on above:Performed By: #### CBC #### [facility] [address] [place] [address] Dr. Candy CortezPLT305 103/avUynsbc219-944Bpy [facility] HospitalComment on above: Performed By: #### CBC #### [facility] [address] [place] [address] Dr. Candy CortezRBC4.19 106/ulCritically low4.20-5.40The [facility] HospitalComment on above:Performed By: #### CBC #### [facility] [address] [place] [address] Dr. Candy CortezWBC5.7 103/ulNormal4.0-11.0The [facility] HospitalComment on above: Performed By: #### CBC #### [facility] [address] [place] [address] Dr. Candy CortezFREE T4on 18-02-8182Obbd T4 [Mass/Vol]0.78 ng/dLNormal0.76-1.46 The [facility] HospitalComment on above:Performed By: #### TSH, URIC, CMP, LIPID #### [facility] [address] [place] [address] Dr. Candy DavisID PROFILEon 50-90-9498MOYP-HDL RATIO NORMSEE BELOWNoSelect Medical Specialty Hospital - AkronComment on above:Result Comment: 3.3 - 4.4 LOW RISK 4.4 - 7.1 AVERAGE RISK 7.1 - 11.0 MODERATE RISK >11.0 HIGH RISKPerformed By: #### TSH, URIC, CMP, LIPID #### [facility] [address] [place] [address] Dr. Candy CortezCholesterol [Mass/Vol]167 mg/dLNormal<=200The [facility] Comment on above:Performed By: #### TSH, URIC, CMP, LIPID #### [facility] [address] [place] [address] Dr. Candy Pedrozaesterol in HDL [Mass/Vol]64 mg/dLCritically qgxq85-40Mjj [facility] HospitalComment on above:Performed By: #### TSH, URIC, CMP, LIPID #### [facility] [address] [place] [address] Dr. Candy Pedrozaesterol in LDL [Mass/Vol]43.6 mg/dLOhioHealth Mansfield HospitalComment on above:Performed By: #### TSH, URIC, CMP, LIPID #### [facility] [address] [address] [address] Candy CortezCholesterol.total/Cholesterol in HDL [Mass ratio]2.6 {ratio} NormalThe [facility]woods on above:Performed By: #### TSH, URIC, CMP, LIPID #### [facility] [address] [address] [address] Candy Rondon NORMAL> or = 60 mg/dl - LOW CARDIOVASCULAR RISK <40 mg/dl - HIGH CARDIOVASCULAR RISKHolzer Health System on above:Performed By: #### TSH, URIC, CMP, LIPID #### [facility] [address] [address] [address] Candy CortezLDL CALC NORMALSEE BELOWOhioHealth Mansfield HospitalComascension borg[facility] on above:Result Comment: <100 mg/dl OPTIMAL 100 - 129 mg/dl NEAR OR ABOVE OPTIMAL 130 - 159 mg/dl BORDERLINE HIGH 160 - 189 mg/dl HIGH >190 mg/dl VERY HIGH Performed By: #### TSH, URIC, CMP, LIPID #### [facility] [address] [address] [address] Candy CortezTriglyceride [Mass/Vol]297 mg/dLCritically high<=150The [facility] on above:Performed By: #### TSH, URIC, CMP, LIPID #### [facility] [address] [address] [address] Candy RodriguezLDL CALC59.4 mg/dLNoBerger Hospital on above: Performed By: #### TSH, URIC, CMP, LIPID #### [facility] [address] [address] [address] Candy CortezPROF 14(COMP METB)on 08-83-5881Iolkuja [Mass/Vol]3.6 g/dLNormal 3.4-5.0The [facility] on above:Performed By: #### TSH, URIC, CMP, LIPID #### [facility] [address] [address] [address] Candy CortezAlbumin/Globulin [Mass ratio]1.0 {ratio}NormalThe Christ HospitalComment on above:Performed By: #### TSH, URIC, CMP, LIPID #### [facility] [address] [address] [address] Candy Figueredo [Catalytic activity/Vol]79 U/XRoivpd71-146Dzd [facility] HospitalComment on above:Performed By: #### TSH, URIC, CMP, LIPID #### [facility] [address] [place] [address] Dr. Candy Yap [Catalytic activity/Vol]23 U/OFydpes60-65Jii [facility] HospitalComment on above:Performed By: #### TSH, URIC, CMP, LIPID #### [facility] [address] [place] [address] Dr. Candy Borjas gap [Moles/Vol]9.7 mmol/LNormalThe [facility] Community HospitalComment on above:Performed By: #### TSH, URIC, CMP, LIPID #### [facility] [address] [place] [address] Dr. Candy Saprks [Catalytic activity/Vol]20 U/IWvwoqy02-65Dzf [facility] HospitalComment on above:Performed By: #### TSH, URIC, CMP, LIPID #### [facility] [address] [place] [address] Dr. Candy CortezBilirubin [Mass/Vol]0.4 mg/dLNormal0.2-1.0The [facility] Comment on above:Performed By: #### TSH, URIC, CMP, LIPID #### [facility] [address] [place] [address] Dr. Candy CortezCalcium [Mass/Vol]9.1 mg/dLNormal8.5-10.1The [facility] Comment on above:Performed By: #### TSH, URIC, CMP, LIPID #### [facility] [address] [place] [address] Dr. Candy CortezChloride [Moles/Vol]103 mmol/YWhepyz64-849Vwn [facility] Comment on above:Performed By: #### TSH, URIC, CMP, LIPID #### [facility] [address] [address] [address] Candy CortezCO2 [Moles/Vol]29.0 mmol/RBsdtdd87.0-32.0The [facility] Comment on above:Performed By: #### TSH, URIC, CMP, LIPID #### [facility] [address] [address] [address] Candy CortezCreatinine [Mass/Vol]0.72 mg/dLNormal0.55-1.02The [facility] HospitalComment on above:Performed By: #### TSH, URIC, CMP, LIPID #### [facility] [address] [place] [address] Dr. Candy VillagranGFR-AF SCOTTISH>60Normal>=60The [facility] HospitalComment on above:Performed By: #### TSH, URIC, CMP, LIPID #### [facility] [address] [place] [address] Dr. Candy VillagranGFR-NON AF SCOTTISH>60Normal>=60The [facility] HospitalComment on above:Performed By: #### TSH, URIC, CMP, LIPID #### [facility] [address] [place] [address] Dr. Candy CortezGlobulin (S) [Mass/Vol]3.7 g/dLNormalThe [facility] HospitalComment on above:Performed By: #### TSH, URIC, CMP, LIPID #### [facility] [address] [place] [address] Dr. Candy CortezGlucose [Mass/Vol]93 mg/oNIaduyo00-862Vam [facility] Comment on above:Performed By: #### TSH, URIC, CMP, LIPID #### [facility] [address] [place] [address] Dr. Candy CortezPotassium [Moles/Vol]4.7 mmol/LNormal3.5-5.1The [facility] Comment on above:Performed By: #### TSH, URIC, CMP, LIPID #### [facility] [address] [place] [address] Dr. Candy CortezProtein [Mass/Vol]7.3 g/dLNormal6.4-8.2The [facility] Comment on above:Performed By: #### TSH, URIC, CMP, LIPID #### [facility] [address] [address] [address] Candy Loeraum [Moles/Vol]137 mmol/MQsgpan757-916Kjt [facility] Comment on above:Performed By: #### TSH, URIC, CMP, LIPID #### [facility] [address] [place] [address] Dr. Candy Miranda nitrogen [Mass/Vol]12.0 mg/dLNormal7.0-18.0The [facility] HospitalComment on above:Performed By: #### TSH, URIC, CMP, LIPID #### [facility] [address] [place] [address] Dr. Candy Miranda nitrogen/Creatinine [Mass ratio]16.7 mg/mgNormalThe [facility] HospitalComment on above:Performed By: #### TSH, URIC, CMP, LIPID #### [facility] [address] [place] [address] Dr. Candy Muñoz 60-17-7248FDN3.748 uIU/mLNormal0.358-3.740The [facility] HospitalComment on above:Performed By: #### TSH, URIC, CMP, LIPID #### [facility] [address] [place] [address] Dr. Candy Block RANDOM W/MICROSCOPICon 61-06-6458AJLZAMZRAKZZ SEENNormalNONE SEENThe Christ HospitalComment on above:Performed By: #### UAMIC #### [facility] [address] [place] [address] Dr. Candy Zhangirubin Ql (U)NegativeNormalNEGATIVEThe [facility] Comment on above:Performed By: #### UAMIC #### [facility] [address] [place] [address] Dr. Candy CortezCASTNONE SEENNormalNONE SEENThe Christ HospitalComment on above:Performed By: #### UAMIC #### [facility] [address] [place] [address] Dr. Candy Pathak (U)CLEARNormalCLEARThe Christ HospitalComment on above: Performed By: #### UAMIC #### [facility] [address] [address] [address] Candy Mantilla (U)LT. YELLOWNormalYELLOWThe Christ HospitalComment on above:Performed By: #### UAMIC #### [facility] [address] [address] [address] Candy CortezCrystals LM Nom (Urine sed)NONE SEENNormalNONE SEENThe Christ HospitalComment on above:Performed By: #### UAMIC #### [facility] [address] [address] [address] Gupta ChangEpithelial cells LM Ql (Urine sed)RARENormalNONE SEEN /RAREThe Christ HospitalComment on above:Performed By: #### UAMIC #### [facility] [address] [place] [address] Dr. Candy CortezGlucose Ql (U)NegativeNormalNEGATIVEThe Christ HospitalComment on above:Performed By: #### UAMIC #### [facility] [address] [place] [address] Dr. Candy CortezHemoglobin Ql (U)NegativeNormalNEGATIVERegency Hospital [facility] West on above:Performed By: #### UAMIC #### [facility] [address] [place] [address] Dr. Candy CortezKetones Ql (U)NegativeNormalNEGATIVEThe Christ HospitalComment on above:Performed By: #### UAMIC #### [facility] [address] [address] [address] Candy CortezLEUKOCYTESNegativeNormalNEGATIVEThe Christ HospitalComment on above:Performed By: #### UAMIC #### [facility] [address] [place] [address] Dr. Candy CortezMUCOUSTRACEAbnormalNONE SEENThe Christ HospitalComment on above:Performed By: #### UAMIC #### [facility] [address] [place] [address] Dr. Candy Cárdenastrblanka Ql (U)NegativeNormalNEGATIVEThe [facility] HospitalComment on above:Performed By: #### UAMIC #### [facility] [address] [place] [address] Dr. Candy CortezpH (U)7.0 [pH]Normal5-9The [facility] HospitalComment on above: Performed By: #### UAMIC #### [facility] [address] [place] [address] Dr. Candy CortezRBCNONE SEENAbnormal0-2The [facility] HospitalComment on above: Performed By: #### UAMIC #### [facility] [address] [place] [address] Dr. Candy CortezSPEC GRAVITY1.409Zsxxco0.005-<=1.025The [facility] HospitalComment on above:Performed By: #### UAMIC #### [facility] [address] [place] [address] Dr. Candy Block PROTEINNegativeNormalNEGATIVE/ TRACEThe [facility] Comment on above:Performed By: #### UAMIC #### [facility] [address] [place] [address] Dr. Candy Hutchisonbilinogen Qn (U)0.2 {Nicko'U}/dLNormal0.2 - 1.0The [facility] HospitalComment on above:Performed By: #### UAMIC #### [facility] [address] [place] [address] Dr. Candy CortezWBCNONE SEENNormalNONE SEENThe [facility] HospitalComment on above: Performed By: #### UAMIC #### [facility] [address] [place] [address] Dr. Candy CortezURIC ACID SERUMon 54-60-8585Tlyuj [Mass/Vol]3.1 mg/dLNormal 2.6-6.0The [facility] HospitalComment on above:Performed By: #### TSH, URIC, CMP, LIPID #### [facility] [address] [place] [address] Dr. Candy Cortez Vital Signs Date TimeVital SignValuePerforming JvxthwyvaKeglmkcv56-36-3304 14:10-0400Body pedpmt749.56 cmLisa Aichholz RESEARCH SPECIALIST-C Work Phone: [phone]10-01-2025 14:10-0400 Body mass index (BMI) [Ratio]23.5 kg/m2Lisa Aichholz RESEARCH SPECIALIST-C Work Phone: [phone]10-01-2025 14:10-0400 Body sansuwrwgwk85.1 [degF]Carmela Aichholz RESEARCH SPECIALIST-C Work Phone: [phone] [place], [place] [address]10-01-2025 14:10-0400 Body taqujk30.14 kgLisa Aichholz RESEARCH SPECIALIST-C Work Phone: [phone] [place], [place] [address]10-01-2025 14:10-0400 Diastolic blood mm[Hg]Carmela Aichholz RESEARCH SPECIALIST-C Work Phone: [phone]10-01-2025 14:10-0400 Heart rate78 /minLisa Aichholz RESEARCH SPECIALIST-C Work Phone: [phone]10-01-2025 14:10-0400 Respiratory rate18 /minLisa Aichholz RESEARCH SPECIALIST-C Work Phone: [phone] [place], [place] [address]10-01-2025 14:10-0400 SaO2% (BldA) [Mass fraction]99 %Carmela Aichholz RESEARCH SPECIALIST-C Work Phone: [phone]10-01-2025 14:10-0400 Systolic blood gfprzxpy835 mm[Hg]Carmela Aichholz RESEARCH SPECIALIST-C Work Phone: [phone]07-01-2025 14:19-0400 Body mass index (BMI) [Ratio]24 kg/m2Lisa Aichholz RESEARCH SPECIALIST Work Phone: [facility]ettZttgogzvxu59-14-4599 14:19-0400Body temperature 98.49 [degF]Carmela Lester RESEARCH SPECIALIST Work Phone: [facility]ettBpwkcamquf07-58-9713 14:19-0400Body wuchpw49.41 kgCarmela Lester RESEARCH SPECIALIST Work Phone: [facility]ettIorsuequiq50-27-0706 14:19-0400Diastolic blood fqkvjwhi47 mm[Hg]Carmela Lester RESEARCH SPECIALIST Work Phone: [facility]ettUptowoudlu14-77-0769 14:19-0400Heart rate78 /min Carmela Lester RESEARCH SPECIALIST Work Phone: [facility]ettRbmmjtmrzs01-60-2584 14:19-0400Respiratory rate18 /minCarmela Lester RESEARCH SPECIALIST Work Phone: [facility]ettLxwfmzxtem90-86-5502 14:19-4703ZfO8% (BldA) [Mass fraction]98 %Carmela Lester RESEARCH SPECIALIST Work Phone: [facility]ettLbmnftyblq33-11-6214 14:19-0400Systolic blood rihgpkae441 mm[Hg]Carmela Lester RESEARCH SPECIALIST Work Phone: [facility]ettGbnivnhhrj47-24-0037 15:21-0500Body ybaatj614.6 cmNicole Saira DO Work Phone: [facility]ettFhzwlbidmp10-01-5690 15:21-0500Body mass index (BMI) [Ratio]27.33 kg/m9Tenykg Saira DO Work Phone: [facility]ettDdfjabbmsb87-73-7583 15:21-0500Body gflcaw76.21 kgNicole Saira DO Work Phone: [address] [address]Jfbjlmzsme43-70-5928 15:21-0500Diastolic blood mm[Hg]Den Saira DO Work Phone: [facility]ettGehketxfae40-16-3376 15:21-0500Heart rate78 /min Den Saira DO Work Phone: [facility]ettXqvxeqdtpp37-55-9174 15:21-9959CcY0% (BldA) [Mass fraction]98 %Den Saira DO Work Phone: [facility]ettBovlijnahc56-48-7156 15:21-0500Systolic blood mm[Hg]Den Saira DO Work Phone: [facility]ettOmxpuxacep80-87-4247 10:52-0500Body .56 cmLisa Aichholz Work Phone: [phone] [place], [place] 6921111-04-2024 10:52-0500 Body mass index (BMI) [Ratio]27 kg/m2Lisa Aichholz Work Phone: [phone] [place], [place] 6921111-04-2024 10:52-0500 Body yxpmuf60.44 kgLisa Aichholz Work Phone: [phone] [place], [place] [address]10-14-2024 10:03-0400 Body mnjjga273.56 cmLisa Aichholz Work Phone: [phone] [place], [place] [address]10-14-2024 10:03-0400 Body mass index (BMI) [Ratio]26.9 kg/m2Lisa Aichholz Work Phone: [phone] [place], [place] 692[address]10-14-2024 10:03-0400 Body fhvbgu62.32 kgLisa Aichholz Work Phone: [phone] [place], [place] 6921109-19-2024 12:58-0400 Body ryhiat214.56 cmLisa Aichholz Work Phone: [phone] [place], [place] 6921109-19-2024 12:58-0400 Body mass index (BMI) [Ratio]27 kg/m2Lisa Aichholz Work Phone: [phone] [place], [place] 6921109-19-2024 12:58-0400 Body .38 kgLisa Aichholz Work Phone: [phone] [place], [place] 6921108-15-2024 13:18-0400 Body ecnyun51.76 kgLisa Aichholz Work Phone: [facility]07-25-2024 14:11-0400 Body tqpyuw15.76 kgSam[facility] Encounters Encounter DateEncounter TypeCare ProviderFacilityStart: 12-12-2024 End: 68-51-3611dzkblllofjZjei J Aichholz RESEARCH SPECIALIST-C Work Phone: [facility] Work Phone: Start: 12-12-2024 End: 27-08-4022Yvaftqo encounter procedureLisa Karlene Lester RESEARCH SPECIALIST-C-[facility] Work Phone: Start: 10-17-2024 End: 37-53-8714GygalvHfad Aichholz RESEARCH SPECIALIST Work Phone: noms CWM FMComment on above:Bilateral hand painStart: 10-16-2024 End: 47-14-4390XpeuxwVenp Aichholz RESEARCH SPECIALIST Work Phone: noms CWM FMComment on above:Bilateral hand pain (Primary Dx)Start: 10-10-2024 End: 74-61-9020Upbiuvixi Result EncounterLisa Popeholz RESEARCH SPECIALIST Work Phone: noms External Department UnsolicitedStart: 10-10-2024 End: 74-18-4684Kajrgjrlx Result EncounterLisa Popeholz RESEARCH SPECIALIST Work Phone: noms External Department UnsolicitedStart: 09-11-2024 End: 11-98-8372Meqybr outpatient visit 25 minutesLisa Rossz RESEARCH SPECIALIST Work Phone: noms CWM FMComment on above:Primary hypertension (Primary Dx); 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 ; Hypothyroidism (acquired) ; Cigarette nicotine dependence without complication; Mixed hyperlipidemia ; Essential hypertension ; Trapezius muscle spasm; Bilateral hand pain; Breast cancer screening declinedStart: 09-11-2024 End: 85-54-5034Wjmivu flowsheetCarmela Rossz RESEARCH SPECIALIST Work Phone: NOFH CWM FMStart: 09-11-2024 End: 42-39-6018Esuckw flowsheetLisa Aichholz RESEARCH SPECIALIST Work Phone: [facility] CWM FMStart: 09-11-2024 End: 88-57-1721qhwaptnnngSDVI AICHHOLZNot AvailableStart: 09-07-2024 End: 76-44-7511Pfrfptkbz Result EncounterLisa Aichholz RESEARCH SPECIALIST Work Phone: noms External Department UnsolicitedStart: 09-07-2024 End: 18-55-6077Thqwqhsgr Result EncounterLisa Aichholz RESEARCH SPECIALIST Work Phone: noms External Department UnsolicitedStart: 08-20-2024 End: 66-05-9599FlbjqjDztj Aichholz RESEARCH SPECIALIST Work Phone: noms CWM FMComment on above:Essential hypertension (CMS/HCC); Primary hypertension (CMS/HCC); 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 (CMS/HCC); Hypothyroidism (acquired) (CMS/HCC)Start: 07-09-2024 End: 45-45-8922iuikujutveUurcwzm Vytautas Giedraitis MDFacility:PM Yves Start: 06-04-2024 End: 14-78-4828ogcdxigisgRNHT Berger Hospitaltart: 04-09-2024 End: 08-91-8758Jpszwzl encounter procedureNicole Saira DO Work Phone: aNA SANDUSKYComment on above:Idiopathic peripheral neuropathyStart: 04-09-2024 End: 42-38-6056lpclvpamroLENWLV DANNERNot AvailableStart: 04-09-2024 End: 73-39-5060Xixcrr flowsheetNicole Saira DO Work Phone: aNA SANDUSKYStart: 04-09-2024 End: 58-69-0097Jckiuo flowsheetNicole Saira DO Work Phone: aNA SANDUSKYStart: 03-31-2024 End: 97-41-9082Sjnysiqdm Result EncounterNicole Saira DO Work Phone: noms External Department UnsolicitedStart: 03-31-2024 End: 41-92-2632Pmfovndro Result EncounterNicole Saira DO Work Phone: noms External Department UnsolicitedStart: 03-26-2024 End: 49-75-3226Wegydb consultation new/estab patient 60 minNicole Saira DO Work Phone: aNA BELLEVUEComment on above:Idiopathic peripheral neuropathy (Primary Dx); Numbness and tingling; Arthralgia, unspecified jointStart: 03-26-2024 End: 89-80-0263milyfanhbtXTFZGX DANNERNot AvailableStart: 03-26-2024 End: 56-59-0688Zwuhrq flowsheetNicole Saira DO Work Phone: aNA BELLEVUEStart: 03-26-2024 End: 74-14-5489Tdkkdy flowsheetNicole Saira DO Work Phone: ana BELLEVUEStart: 03-13-2024 End: 51-25-4781CzegsxKbym Aichholz RESEARCH SPECIALIST Work Phone: NOM[facility] CWM FMComment on above:Essential hypertension (CMS/HCC)Start: 03-02-2024 End: 88-18-1478qlhczsrjriYhzt N BialaskiFacility:[facility] Hospitaltart: 02-29-2024 End: 69-35-5371LztwrvZzao Aichholz RESEARCH SPECIALIST Work Phone: [facility] CWM FMComment on above: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 (CM S/HCC)Start: 02-07-2024 End: 17-44-6478Etlecznrg encounterLisa Lester RESEARCH SPECIALIST Work Phone: [facility] CWM FMStart: 02-01-2024 End: 56-24-5053Cooecmc encounter procedureCarmela Lester Work Phone: [facility] Work Phone: Start: 02-01-2024 End: 75-03-9555pttjmieqldZtfv J Aichholz Work Phone: [facility] Work Phone: Start: 01-16-2024 End: 68-81-9448Ztlmeic encounter procedureLisa Aichholz Work Phone: [facility] Work Phone: start: 01-13-2024 End: 58-03-6421Dtmzuoz encounter procedureLisa Aichholz Work Phone: [facility] [place] Work Phone: Start: 01-13-2024 End: 01-30-4535peplmdrocdJtft J Aichholz Work Phone: [facility] Work Phone: Start: 12-26-2023 End: 68-87-6545ssdjmxfufvGeqg J Aichholz Work Phone: [facility] Work Phone: Start: 12-26-2023 End: 20-30-5595Uvjoouw encounter procedureLisa Aichholz Work Phone: [facility] Work Phone: start: 12-12-2023 End: 34-34-3551ovreasgxooDqxcugt Vytautas Giedraitis MDFacility:PM Yves Start: 12-01-2023 End: 31-09-9464wttulrlodhYlcg J Aichholz Work Phone: [facility] Work Phone: Start: 12-01-2023 End: 78-11-0858Kazewgc encounter procedureLisa Aichholz Work Phone: [facility]ly [facility] Work Phone: start: 11-24-2023 End: 98-85-4696UgpmesEeqp Osielhholz RESEARCH SPECIALIST Work Phone: noms CWM FMComment on above: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 (CM S/HCC)Start: 11-22-2023 End: 29-40-7194TqgepvZizk Aichholz RESEARCH SPECIALIST Work Phone: noms CWM FMComment on above: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 (CM S/HCC); Neuropathy; Essential hypertension (CMS/HCC); Hypothyroidism (acquired) (CMS/HCC); Primary hypertension (CMS/HCC); Trapezius muscle spasmStart: 11-21-2023 End: 39-28-4414hazcwkawogBbabwde Vytautas Giedraitis MDFacility:[facility] [place] Start: 10-31-2023 End: 31-92-9861benaxddwheVugmnti Vytautas Giedraitis MDFacility:[facility] [place] Start: 10-27-2023 End: 83-53-0958lzgsberzbkLpmo J Osielhinocencio Work Phone: [facility] Work Phone: Start: 10-27-2023 End: 32-15-5530Zjnicra encounter procedureLisa Aichholz Work Phone: [facility] Work Phone: start: 10-27-2023 End: 84-57-6052Ndzkhon encounter procedureLisa Aichholz Work Phone: [facility] Work Phone: Start: 10-27-2023 End: 11-50-3426uwzsfblutrXbye J Aichholz Work Phone: [facility] Work Phone: Start: 10-06-2023 End: 03-45-9246nlumxxkddvIhqftayprPremier Health [facility] Work Phone: Start: 10-06-2023 End: 95-70-2271Bdcannp encounter procedureFormerly [facility] Work Phone: start: 09-29-2023 End: 87-50-2765phcftmhtmxWQWZZBAKUJL HASSETTNot AvailableStart: 09-05-2023 End: 47-88-7113Unaqshspn Result EncounterLisa Aichholz RESEARCH SPECIALIST Work Phone: noms External Department UnsolicitedStart: 09-05-2023 End: 85-98-5026Wudsxqzfc Result EncounterLisa Aichholz RESEARCH SPECIALIST Work Phone: noms External Department UnsolicitedStart: 06-08-2023 End: 31-50-4181rtgedokqxwMDDJHarrison Community Hospitaltart: 05-27-2023 End: 49-62-0282Ciqmgkkuf Result EncounterLisa Aichholz RESEARCH SPECIALIST Work Phone: noms External Department UnsolicitedStart: 05-27-2023 End: 51-81-4697Lmdihibdq Result EncounterLisa Aichholz RESEARCH SPECIALIST Work Phone: noms External Department UnsolicitedStart: 07-22-2022 End: 75-81-2331hocwoalefpGDY CARMELA AICHHOLZFacility:G7Cabhf: 07-05-2022 End: 40-87-1998leflgqpvlfOYI CARMELA AICHHOLZFacility:W0Riimp: 05-10-2022 End: 38-94-1428beelnvuadqXIP CARMELA AICHHOLZFacility:Q5Josyj: 01-22-2022 End: 51-12-7153orbmspvplxFBI CARMELA AICHHOLZFacility:H1 Procedures DateProcedureProcedure DetailPerforming ClinicianStart: 87-10-0501Mfpuz hand 2 viewsLisa Aichholz RESEARCH SPECIALIST Work Phone: Start: 01-04-6836Tsflyq cancer screening declined Breast cancer screening declinedLisa Aichholz RESEARCH SPECIALIST Work Phone: Start: 47-89-2259PWW CBC WITH AUTO DIFFLisa Aichholz RESEARCH SPECIALIST Work Phone: Start: 04-09-2024 End: 16-78-5077Jbcimt emg ea extremty w/paraspinl area completeNicole Saira DO Work Phone: Start: 39-93-5825COE FOLIC ACIDNicole Saira DO Work Phone: Start: 81-35-1349MOH of cervical spine without contrastLisa Aichholz Work Phone: Start: 60-82-1644U-ray of cervical spineLisa Aichholz Work Phone: Start: 09-66-5521Eju spinal canal cervical w/o contrast matrlLisa Aichmorenaz RESEARCH SPECIALIST Work Phone: Start: 68-11-4120UN ECHO DOPPLER COMPLETELisa Aichholz RESEARCH SPECIALIST Work Phone: Breast cancer screening declinedBreast cancer screening declinedLisa Trevon RESEARCH SPECIALIST-C Work Phone: Plan of Treatment DateCare ActivityDetailAuthorStart: 99-33-7136Bsxzcytvf for malignant neoplasm of colonNOMS HealthcareStart: 12-12-2024 End: 02-93-1470Hjtdgeg encounter ftlzutwzi80/01/2025 2:00 PM EDT Office Visit [facility] [address] [place] [id number] Carmela Lester NP [address] [place] [phone] [facility] FMStart: 94-58-9084Pojpearww vaccinationNOMS HealthcareStart: 09-11-2024 End: 48-80-2282Skgudtu encounter procedureNOMS CWM FMComment on above:ERICK (obstructive sleep apnea) (Primary Dx); 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 ; Primary hypertension ; Hypothyroidism (acquired) ; Cigarette nicotine dependence without complication; Mixed hyperlipidemiaStart: 09-11-2024 End: 02-16-3626[place] Hand - bilateral 2 ViewsXR hand 1 or 2 views bilateral Imaging Routine Bilateral hand pain Expected: 09/11/2024 (Approximate), Expires: 09/11/2025[facility] Work Phone: Comment on above:Expected: 09/11/2024 (Approximate), Expires: 09/11/2025Start: 08-20-2024 End: 25-02-9889CAB W Auto Differential panel - BloodCBC and differential Lab Routine Coronary artery disease involving blue lake coronary artery of nativeheart without angina pectoris (CMS/HCC) Expected: 08/20/2024 (Approximate), Expires: 08/20/2025[facility] Work Phone: Comment on above:Expected: 08/20/2024 (Approximate), Expires: 08/20/2025Start: 08-20-2024 End: 81-44-1361Vbqrtpvmmzedr metabolic 2000 panel - Serum or PlasmaComprehensive metabolic panel Lab Routine Essential hypertension (CMS/HCC) 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 (CMS/HCC) Expected: 08/20/2024 (Approximate), Expires: 08/20/2025[facility] HealthcareComment on above:Expected: 08/20/2024 (Approximate), Expires: 08/20/2025Start: 08-20-2024 End: 04-89-6920Hzyfw 1996 panel - Serum or PlasmaLipid panel Lab Routine 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 (CMS/HCC) Expected: 08/20/2024 (Approximate), Expires: 08/20/2025NON[facility] HealthcareComment on above:Expected: 08/20/2024 (Approximate), Expires: 08/20/2025Start: 08-20-2024 End: 25-85-8655Xxdmprspwvnv/Creatinine panel in random UrineMicroalbumin / creatinine, urine ratio Lab Routine Essential hypertension (CMS/HCC) Expected: 08/20/2024 (Approximate), Expires: 08/20/2025NONM HealthcareComment on above: Expected: 08/20/2024 (Approximate), Expires: 08/20/2025Start: 08-20-2024 End: 66-55-1871Ykbbdbxhoot [Units/volume] in Serum or PlasmaTSH Lab Routine Hypothyroidism (acquired) ([facility]) Expected: 08/20/2024 (Approximate), Expires: 08/20/2025NONM HealthcareComment on above:Expected: 08/20/2024 (Approximate), Expires: 08/20/2025Start: 08-20-2024 End: 91-66-2174Praxmnywp (T4) free [Mass/volume] in Serum or PlasmaT4, free Lab Routine Hypothyroidism (acquired) ([facility]) Expected: 08/20/2024 (Approximate), Expires: 08/20/2025[facility] HealthcareComment on above:Expected: 08/20/2024 (Approximate), Expires: 08/20/2025Start: 08-20-2024 End: 72-15-8093Ouqobvhadf complete panel - UrineUrinalysis with reflex microscopic (clean catch) Lab Routine Essential hypertension ([facility]) Expected: 08/20/2024 (Approximate), Expires: 08/20/2025[facility] HealthcareComment on above: Expected: 08/20/2024 (Approximate), Expires: 08/20/2025Start: 05-23-2024 End: 05-13-5951Jdvmlrt encounter yolufkifd78/12/2025 1:15 PM EDT Office Visit [facility] [address] [place] [phone] Den Chávez DO [address] [place] [id number] GINA NAYELItart: 05-17-2024 End: 75-88-7196Wusmsiv encounter qjupkrjfz28/06/2025 1:15 PM EST Office Visit [facility] [address] [place] [phone] Den Chávez DO [address] [place] [address] GINA TYLERtart: 04-09-2024 End: 86-81-4931Cjpgtkk encounter procedureGINA BURGOSYComment on above:Arrived Start: 03-26-2024 End: 48-35-4056Ssdzrsn encounter procedureNOMS SANCHEZ STATE ROUTEComment on above:ArrivedStart: 03-26-2024 End: 58-90-4837Rchppwldd (Vitamin B12) [Mass/volume] in Serum or PlasmaVitamin B12 Lab Routine Idiopathic peripheral neuropathy Expected: 03/26/2024 (Approximate), Expires: 03/26/2025[facility] Work Phone: comment on above:Expected: 03/26/2024 (Approximate), Expires: 03/26/2025Start: 03-26-2024 End: 20-28-2244ZTE 2 ExtremitiesEMG 2 Extremities Neurology Routine Idiopathic peripheral neuropathy Expected: 03/26/2024 (Approximate), Expires: 03/26/2025 N[facility] HealthcareComment on above:Expected: 03/26/2024 (Approximate), Expires: 03/26/2025Start: 03-26-2024 End: 49-30-3238Wrrdtn [Mass/volume] in Serum or PlasmaFolate Lab Routine Idiopathic peripheral neuropathy Expected: 03/26/2024 (Approximate), Expires: 03/26/2025N[facility] HealthcareComment on above:Expected: 03/26/2024 (Approximate), Expires: 03/26/2025Start: 03-26-2024 End: 85-04-6644Kivhxlk Ab [Titer] in Serum by ImmunofluorescenceANA Lab Routine Idiopathic peripheral neuropathy Expected: 03/26/2024 (Approximate), Expires: 03/26/2025N[facility] HealthcareComment on above:Expected: 03/26/2024 (Approximate), Expires: 03/26/2025Start: 03-26-2024 End: 21-29-1350EZP 9-10 NervesNVC 9-10 Nerves Neurology Routine Idiopathic peripheral neuropathy Expected: 03/26/2024 (Approximate), Expires: 03/26/2025 N[facility] HealthcareComment on above:Expected: 03/26/2024 (Approximate), Expires: 03/26/2025Start: 03-26-2024 End: 23-76-3439Iaysyqj electrophoresis, serumProtein electrophoresis, serum Lab Routine Idiopathic peripheral neuropathy Expected: 03/26/2024 (Approximate), Expires: 03/26/2025N[facility] HealthcareComment on above:Expected: 03/26/2024 (Approximate), Expires: 03/26/2025Start: 03-26-2024 End: 30-08-5295Ojuiburmff factor [Units/volume] in Serum or PlasmaRheumatoid factor Lab Routine Idiopathic peripheral neuropathy Expected: 03/26/2024 (Approximate), Expires: 03/26/2025N[facility] HealthcareComment on above:Expected: 03/26/2024 (Approximate), Expires: 03/26/2025Start: 03-20-2024 End: 38-18-2741Xwwrdys encounter ijgueenta57/07/2025 1:20 PM EST Office Visit [facility] [address] [place] [address] Carmela Lester, RESEARCH SPECIALIST [address] [place] [address] [facility] FMStart: 89-38-8942Hmatrgpre vaccinationInfluenza Vaccine (#1)[facility] HealthcareStart: 13-30-5604C-ray of cervical spineXR cerv spine AP/LAT/FLX/EXTAvita Health System Ontario Hospitaltart: 21-38-0130JI Cervical spine 4 ViewsAvita Health System Ontario Hospitaltart: 73-01-8507Rhfwcno referral [facility] Work Phone: Start: 62-85-6944Biunkspdl for malignant neoplasm of cervixHPV/CotestNOMS HealthcareStart: 33-75-5064Tqqqvwbbr for malignant neoplasm of cervixPap SmearNOMS HealthcareStart: 21-30-9564Elkkocqes for malignant neoplasm of colonNOMS HealthcareElectromyographySamaritan HospitalMR Cervical spine WO [facility] HospitalPatient referralHighland [facility] Hospital Work Phone: XR Cervical spine 4 [facility] Immunizations Immunization DateImmunizationNotesCare NbommoneFmqyvfqd35-86-0624meamhdrrr, injectable, quadrivalent, preservative freeLisa Aichholz RESEARCH SPECIALIST Work Phone: [facility]Xwwlesadpn05-36-3026Macfnadtusqv Conjugate PCV 20 Carmela Aichholz RESEARCH SPECIALIST Work Phone: [facility]ettZmqkeoswzl00-34-3487jxhroqhac virus vaccine, unspecified formulationLisa Aichholz RESEARCH SPECIALIST Work Phone: [facility]ettVepyoshnst82-50-0579jugbtsche, injectable, quadrivalent, preservative freeLisa Aichholz RESEARCH SPECIALIST Work Phone: [facility]ettGbsojdpund71-32-3179lbxzbgevs, injectable, quadrivalent, preservative freeLisa Aichholz RESEARCH SPECIALIST Work Phone: [facility]ettStvnksyaym06-11-9606amekcvkvc, injectable, quadrivalent, preservative freeLisa Aichholz RESEARCH SPECIALIST Work Phone: [facility]ettKshheafhan41-70-5669lmwfowacx, injectable, quadrivalent, preservative freeLisa Aichholz RESEARCH SPECIALIST Work Phone: [facility]ettMhjgstcxnf10-68-5563nogtackzziwa polysaccharide vaccine, 23 valentLisa Aichholz RESEARCH SPECIALIST Work Phone: [facility]ettWkdbezsdcu50-05-7618lwpeezzqw, injectable, quadrivalent, preservative freeLisa Aichholz RESEARCH SPECIALIST Work Phone: [facility] Payers DatePayer CategoryPayerPolicy [id number] Health InsuranceMEDICAL MUTUAL Member Subscriber Plan / Payer (Effective 2022- Present) Name: Diane Mendoza Relation to Subscriber: Spouse Name: JOSE MARIA MENDOZA Date of : 1960 Address: [address] [place] [address] Payer ID: Not on file Gr p ID: [id number] Type: Not on file Address: [address] [place] [id number] 1.2.840.494766.1.13.693.2.7.3.157[id number] 2.840.1.856773.3.57[id number] 2.840.1.823024.3.57[id number] 2.840.1.079208.3.57[id number] 2.840.1.027706.3.57[id number] 2.840.1.283147.3.57[id number] 2.840.1.868273.3.57[id number] 2.840.1.791351.3.57[id number] 2.840.1.687372.3.57[id number] 2.840.1.404446.3.57[id number] 2.840.1.155801.3.57[id number] 2.16.840.1.728698.3.57[id number] 2..840.1.549605.3.57[id number] 2.16.840.1.5[id number] 2.840.1.028484.3.579.2.531 [id number] 2.16.840.1.7[id number] 2.840.1.869183.3.579.2.531 Social History DateTypeDetailFacilityTobacco smoking status NHISUnknown if ever smokedHighland District Hospital Work Phone: Start: 41-86-6273Hha Assigned At BirthFemalUC HealthTobacco smoking status NHISUnknown if ever smoked [facility] Work Phone: Start: 32-68-5841HtfVeuxyhf sex unknown (finding) [facility] Hospitaltart: 86-60-5078Yjpxsuf smoking status NHIS Smokes tobacco dailyNOMS HealthcareHistory of tobacco useCigarette SmokerNOMS HealthcareStart: 02-07-2023 End: 24-70-8710Vwyogbhjvj smoked current (pack per day) - Ogxvhgxa3FTXD HealthcareStart: 07-11-2023 End: 80-66-1923Wsfcozwam beverage intakeLifetime non-drinker (finding)[facility] HealthcareStart: 05-10-2023 End: 74-29-4823Niwitrc use panelNOMS HealthcareStart: 50-03-3453Yhp assigned at birthNot on fileNOMS HealthcareStart: 85-78-3426Gkkesoh smoking status NHIS Ex-smokerNOMS HealthcareHistory of tobacco useCurrent smokerN[facility]S Healthcare Start: 12-99-5084Imphdse use and exposureSmokeless tobacco non-userNOMS HealthcareSexFemale (finding)[facility] Hospitaltart: 05-26-2022 SexFeBelchertown State School for the [facility]ee[facility] Functional Status DagaQwlgmdlwxdVsieosTzmihvpy35-96-4194Zfvfnot Health Questionnaire 2 item (PHQ- 2) [Reported][facility] Clinical Notes 06-08-2023 to 09-11-2024 Note Date & PhpfSuzcBzwjjgmk30-32-0664 History of Present illness Narrative* Carmela Lester [...] no compliance problems. Hypertensive end-organ damage includes CAD/WI. There is no history of PVD. SUBJECTIVE: [...] of the risks of continued smoking: stroke, WI, all forms of cancer, lung disease, and [...] labs yearly and prn dose changes * Carmlea Lester NP - 09/11/2024 7:24 AM EDTAssociated Problem(s): Cigarette nicotine dependence without complication The patient has been advised of the risks of continued smoking: stroke, WI, all forms of cancer, lung disease, and [...] that manages your ERICK: documented in this [facility]07-01-2025 Instructions* Patient Instructions* Carmela Lester NP - 09/11/2024 2:20 PM EDT Check xrays of the hands Add baby aspirin 81mg daily documented in this [facility]06-09-2025 Telephone encounter Note* Telephone Encounter - Carmela [...] order please getting this completed CICI [place] [facility]Lbjyrupoig40-30-0429 Miscellaneous Notes* Telephone Encounter - Carmela Lester [...] this completed CICI LA documented in this encounterCox MonettNxorpmadvj52-68-8555 [facility] Chief Complaint: [...] calc (more content not included)... [facility]01-27-2025 History of Present illness Narrative* Walker Nicole, ARRT - 04/09/2024 4:00 PM EST Images from the original note were not included. Reason for Appointment: EMG Patient: Diane Mendoza : 1970 EMG Computer: [employer] renal Referring Physician: Dr. Den Chávez EMG: BLE furrier apprentice: Walker Nicole RT(R) Office Location: [place] Reason for EMG: c/o numbness/tingling in bilateral feet/lower legs, low back pain that radiates down bilateral legs L>R. Hx of surgery to left ankle. No hx of DM. Taking ASA. Comments: Procedure was explained to the patient who expressed understanding. Patient appeared to have tolerated the test well despite some discomfort due to the nature of the test. documented in this encounterCox MonettOfupsanjkw42-84-5581 History of Present illness Narrative* Den Chávez DO - 03/26/2024 4:00 PM EST Images from the original note were not included. Chief Complaint Patient presents with Numbness Tingling Subjective Diane Mendoza, 54 y.o., female HPI Paresthesia of skin - EMG @ [facility] as well as our office, [...] symptoms. She had EMG here and at [facility]. Borderline right CTS. She had the EMG 2020 BLE She is on the neurontin 900mb bid Past Medical History: Diagnosis Date Abnormal ankle brachial index (LYSSA) 05/10/2023 Asymptomatic microscopic hematuria 05/10/2023 Back pain, chronic 05/10/2023 Bilateral hand pain 05/10/2023 Bronchitis 02/07/2023 CAD (coronary artery disease) ([facility]) 05/10/2023 Closed traumatic minimally displaced fracture of proximal end of fibula with routine healing 05/10/2023 Fatigue GERD (gastroesophageal reflux disease) 05/10/2023 Gout 05/09/2023 History of irregular menstrual cycles Hyperlipidemia ([facility]) Joint pain Left ankle pain Loud snoring 05/10/2023 Lumbosacral radiculopathy at S1 05/10/2023 Menorrhagia 05/10/2023 Myocardial infarction ([facility]) 05/10/2023 Neuropathy 05/10/2023 Paresthesia of foot Peripheral artery disease ([facility]) 05/10/2023 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[facility]) 05/10/2023 Seasonal allergies 05/10/2023 Tobacco [...] upper extremity in September most recently at [facility] that was not entirely convincing [...] to clinic: 3 weeks documented in this [facility]11-26-2024 Telephone encounter Note* Telephone Encounter - Carmela Lester NP - 02/07/2024 8:35 PM EST Please call and schedule a fu appt for pt [place] [facility]Lzrtwwronv80-00-0897 Miscellaneous Notes* Telephone Encounter - Carmela Lester NP - 02/07/2024 8:35 PM EST Please call and schedule a fu appt for pt [place] documented in this [facility]09-19-2024 Evaluation note* Diagnosis Onset Date Resolution Status Admit Date Arm pain acuteSeptember 2023 12:52pmCervical radiculopathyacuteSept2023 12:52pmNeck painacuteSeptember 2023 12:52pmCervical radiculopathyacute December 26, 2023 9:58amUlnar neuropathy at elbowacuteNov2023 10:50am [facility] Work Phone: [phone] [facility] Chief Complaint: New [...] to underg (more content not included)...[facility] Evaluation noteNo assessment information availableHighland District Hospital Work Phone: Evaluation note* Diagnosis Onset Date Resolution Status Arm pain acuteCervical radiculopathyacuteUlnar neuropathy at elbowacuteArm painacuteNeck painacuteUlnar neuropathy at elbowacute [facility] Work Phone: Evaluation note* Diagnosis Onset Date Resolution Status Arm pain acuteCervical radiculopathyacuteUlnar neuropathy at elbowacuteArm painacuteNeck painacuteUlnar neuropathy at elbowacuteArm painacuteCervical radiculopathyacute Neck painacuteCervical radiculopathyacute [facility] Work Phone: Evaluation note* Diagnosis Onset Date Resolution Status Arm pain acuteNeck painacuteUlnar neuropathy at elbowacuteArm painacuteCervical radiculopathyacuteNeck painacuteCervical radiculopathyacute [facility] Work Phone: Evaluation note* Diagnosis 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 (CMS/HCC) documented in this encounter [facility] HealthcareEvaluation note* Diagnosis Colon cancer screening- Primary Special screening for malignant neoplasms, colon Atherosclerosis of blue lake coronary artery without angina pectoris, unspecified whether blue lake or transplanted heart (CMS/HCC) Essential hypertension (CMS/HCC) Unspecified essential hypertension Hypothyroidism (acquired) (CMS/HCC) Unspecified hypothyroidism Idiopathic gout, unspecified chronicity, unspecified site Bronchitis Bronchitis, not specified as acute or chronic Essential hypertension (CMS/HCC)- Primary Unspecified essential hypertension 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 (CMS/HCC) Trapezius muscle spasm Tobacco user Tobacco use disorder Essential hypertension (CMS/HCC)- Primary Unspecified essential hypertension 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 (CMS/HCC) Trapezius muscle spasm Tobacco user Tobacco use disorder Cervical neck pain with evidence of disc disease- Primary Other and unspecified disc disorder of cervical region Trapezius muscle spasm Tobacco user Tobacco use disorder Cervical stenosis of spinal canal- Primary Spinal stenosis in cervical region Cervical radiculopathy Brachial neuritis or radiculitis nos 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 (CMS/HCC) documented in this encounter [facility] HealthcareEvaluation note* Diagnosis 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 (CMS/HCC) Neuropathy Mononeuritis of unspecified site Essential hypertension (CMS/HCC) Unspecified essential hypertension Hypothyroidism (acquired) (CMS/HCC) Unspecified hypothyroidism Primary hypertension (CMS/HCC) Unspecified essential hypertension Trapezius muscle spasm documented in this encounter [facility] HealthcareEvaluation [facility]* Diagnosis Colon cancer screening- Primary Special screening for malignant neoplasms, colon Atherosclerosis of blue lake coronary artery without angina pectoris, unspecified whether blue [place] or transplanted heart (CMS/HCC) Essential hypertension (CMS/HCC) Unspecified essential hypertension Hypothyroidism (acquired) (CMS/HCC) Unspecified hypothyroidism Idiopathic gout, unspecified chronicity, unspecified site Bronchitis Bronchitis, not specified as acute or chronic Essential hypertension (CMS/HCC)- Primary Unspecified essential hypertension 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 (CMS/HCC) Trapezius muscle spasm Tobacco user Tobacco use disorder Essential hypertension (CMS/HCC)- Primary Unspecified essential hypertension 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 (CMS/HCC) Trapezius [...] screening for malignant neoplasms, colon Atherosclerosis of blue lake coronary artery without angina pectoris, unspecified whether blue [place] or transplanted heart (CMS/HCC) Essential hypertension (CMS/HCC) Unspecified essential hypertension Hypothyroidism (acquired) ([facility]) Unspecified hypothyroidism Idiopathic gout, unspecified chronicity, unspecified site Bronchitis Bronchitis, not specified as acute or chronic Essential hypertension (CMS/HCC)- Primary Unspecified essential hypertension 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 (CMS/HCC) Trapezius muscle spasm Tobacco user Tobacco use disorder Essential hypertension (CMS/HCC)- Primary Unspecified essential hypertension 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 (CMS/HCC) Trapezius [...] screening for malignant neoplasms, colon Atherosclerosis of [place] coronary artery without angina pectoris, unspecified whether [place] or transplanted heart (CMS/HCC) Essential hypertension (CMS/HCC) Unspecified essential hypertension Hypothyroidism (acquired) ([facility]) Unspecified hypothyroidism Idiopathic gout, unspecified chronicity, unspecified site Bronchitis Bronchitis, not specified as acute or chronic Essential hypertension (CMS/HCC)- Primary Unspecified essential hypertension 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 (CMS/HCC) Trapezius muscle spasm Tobacco user Tobacco use disorder Essential hypertension (CMS/HCC)- Primary Unspecified essential hypertension 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 (CMS/HCC) Trapezius [...] screening for malignant neoplasms, colon Atherosclerosis of [place] coronary artery without angina pectoris, unspecified whether [place] or transplanted heart (CMS/HCC) Essential hypertension (CMS/HCC) Unspecified essential hypertension Hypothyroidism (acquired) (CMS/HCC) Unspecified hypothyroidism Idiopathic gout, unspecified chronicity, unspecified site Bronchitis Bronchitis, not specified as acute or chronic Essential hypertension (CMS/HCC)- Primary Unspecified essential hypertension 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 (CMS/HCC) Trapezius muscle spasm Tobacco user Tobacco use disorder Essential hypertension (CMS/HCC)- Primary Unspecified essential hypertension 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 (CMS/HCC) Trapezius [...] Unspecified essential hypertension 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 (CMS/HCC) Hypothyroidism (acquired) ([facility]) Unspecified hypothyroidism [facility] Diagnosis Colon cancer screening- Primary Special screening for malignant neoplasms, colon Atherosclerosis of [place] coronary artery without angina pectoris, unspecified whether [place] or transplanted heart Essential hypertension Unspecified essential hypertension Hypothyroidism (acquired) Unspecified hypothyroidism Idiopathic gout, unspecified chronicity, unspecified site Bronchitis Bronchitis, not specified as acute or chronic Essential hypertension- Primary Unspecified essential hypertension 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 Trapezius muscle spasm Tobacco user Tobacco use disorder Essential hypertension- Primary Unspecified essential hypertension 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 Trapezius muscle [...] Unspecified essential hypertension 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 Hypothyroidism (acquired) Unspecified hypothyroidism Cigarette nicotine dependence without complication Mixed hyperlipidemia Mixed hyperlipidemia Essential hypertension Unspecified essential hypertension Trapezius muscle spasm Bilateral hand pain Breast cancer screening declined documented [facility]* Diagnosis Colon cancer screening- Primary Special screening for malignant neoplasms, colon Atherosclerosis of [place] coronary artery without angina pectoris, unspecified whether [place] or transplanted heart Essential hypertension Unspecified essential hypertension Hypothyroidism (acquired) Unspecified hypothyroidism Idiopathic gout, unspecified chronicity, unspecified site Bronchitis Bronchitis, not specified as acute or chronic Essential hypertension- Primary Unspecified essential hypertension 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 Trapezius muscle spasm Tobacco user Tobacco use disorder Essential hypertension- Primary Unspecified essential hypertension 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 Trapezius muscle [...] Unspecified essential hypertension 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 Hypothyroidism (acquired) Unspecified hypothyroidism Cigarette nicotine dependence without complication Mixed hyperlipidemia Mixed hyperlipidemia Essential hypertension Unspecified essential hypertension Trapezius muscle spasm Bilateral hand pain Breast cancer screening declined Bilateral hand pain- Primary documented [facility]* Diagnosis Colon cancer screening- Primary Special screening for malignant neoplasms, colon Atherosclerosis of [place] coronary artery without angina pectoris, unspecified whether [place] or transplanted heart Essential hypertension Unspecified essential hypertension Hypothyroidism (acquired) Unspecified hypothyroidism Idiopathic gout, unspecified chronicity, unspecified site Bronchitis Bronchitis, not specified as acute or chronic Essential hypertension- Primary Unspecified essential hypertension 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 Trapezius muscle spasm Tobacco user Tobacco use disorder Essential hypertension- Primary Unspecified essential hypertension 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 Trapezius muscle [...] Unspecified essential hypertension 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 Hypothyroidism (acquired) [...] 2024 1:48pmHypothyroidism (acquired)acute December 12, 2024 1:48pm [facility] Work Phone: Hospital Discharge instructionsAmbulatory Orders* Referral to Pain Management Location: None Selected [facility] Work Phone: Reason for referral (narrative)No reason for referral information availableHighland District [facility] Work Phone: Summary Purpose Family History [...] and content) DATE CREATED AUTHOR 07/25/2022 [facility] DATE CREATED AUTHOR AUTHOR'S ORGANIZ ATION 03/06/2024 [facility] DATE CREATED AUTHOR AUTHOR'S ORGANIZ ATION 06/05/2024 [facility] DATE CREATED AUTHOR AUTHOR'S ORGANIZ ATION 07/22/2024 [facility] DATE CREATED AUTHOR AUTHOR'S ORGANIZ ATION 09/13/2024 [facility] EPIC Care Teams (unrecognized sec [...] Parviz Stewart MD [address] [place] [address] PCP - GeneralFamily Medicine05/10/23 Carmela Lester NP [address] [place] [address] Referring PhysicianNurse Practitioner10/04/22 Carmela Lester NP [address] [place] [address] Nurse PractitionerChanning Home Medicine05/10/23Team MemberRelationshipSpecialtyStart DateEnd Date Parviz Stewart MD [address] [place] [address] PCP - GeneralCh[facility]05/10/23 Carmela Lester NP [address] [place] [address] Referring PhysicianNurse Practitioner10/04/22 Carmela Lester NP [address] [place] [address] Nurse PractitionerCh[facility] Medicine05/10/23Team MemberRelationshipSpecialtyStart DateEnd Date Parviz Stewart MD [address] [place] [address] PCP - [facility]05/10/23 Carmela Lester NP [address] [place] [address] Referring PhysicianNurse Practitioner10/04/22 Carmela Lester NP [address] [place] [address] Nurse PractitionerCh[facility]05/10/23Team MemberRelationshipSpecialtyStart DateEnd Date Parviz Stewart MD [address] [place] [address] PCP - [facility]Ch[facility]05/10/23 Carmela Lester NP [address] [place] [address] Referring PhysicianNurse Practitioner10/04/22 Carmela Lester NP [address] [place] [address] Nurse PractitionerCh[facility]05/10/23Team MemberRelationshipSpecialtyStart DateEnd Date Parviz Stewart MD [address] [place] [address] PCP - [facility]05/10/23 Carmela Lester NP [address] [place] [address] Referring PhysicianNurse Practitioner10/04/22 Carmela Lester NP [address] [place] [address] Nurse PractitionerCh[facility]05/10/23Team MemberRelationshipSpecialtyStart DateEnd Date Parviz Stewart MD [address] [place] [address] PCP - [facility]05/10/23 Carmela Lester NP [address] [place] [address] Referring PhysicianNurse Practitioner10/04/22 Carmela Lester NP [address] [place] [address] Nurse PractitionerFamily Medicine05/10/23Team MemberRelationshipSpecialtyStart DateEnd Date Parviz Stewart MD [address] [place] [address] PCP - GeneralFamily Medicine05/10/23 Carmela Lester, EMMANUEL [address] [place] [address] Referring PhysicianNurse Practitioner10/04/22 Carmela Lester NP [address] [place] [address] Nurse PractitionerFamily Medicine05/10/23 Den Chávez DO [address] [place] [address] Referring PhysicianNeurology1 Jessica Venegas NP [address] [place], [place] Nurse PractitionerNeurology1Team MemberRelationshipSpecialtyStart DateEnd Date Parviz Stewart MD [address] [place] [address] PCP - GeneralFamily Medicine05/10/23 Carmela Lester NP [address] [place] [address] Referring PhysicianNurse Practitioner10/04/22 Carmela Lester, EMMANUEL [address] [place] [address] Nurse PractitionerFamily Medicine05/10/23 Den Chávez DO [address] [place] [address] Referring PhysicianNeurolog03/27/24 Jessica Venegas NP [address] [place] Nurse PractitionerNeurology1Team MemberRelationshipSpecialtyStart DateEnd Date Parviz Stewart MD [address] [place] [address] PCP - GeneralFamily Medicine05/10/23 Carmela Lester NP [address] [place] [address] Referring PhysicianNurse Practitioner10/04/22 Carmela Lester NP [address] [place] [address] Nurse PractitionerFamily Medicine05/10/23 Den Chávez DO [address] [place] [address] Referring PhysicianNeurolog03/27/24 Jessica Venegas NP [address] [place] [address] Nurse PractitionerNeurolog03/27/24Team MemberRelationshipSpecialtyStart DateEnd Date Parviz Stewart MD [address] [place] [address] PCP - GeneralFamily Medicine05/10/23 Carmela Lester NP [address] [place] [address] Referring PhysicianNurse Practitioner10/04/22 Carmela Lester NP [address] [place] [address] Nurse PractitionerFamily Medicine05/10/23 Den Chávez DO [address] [place] [address] Referring PhysicianNeurolog03/27/24 Jessica Venegas NP [address] [place] [address] Nurse PractitionerNeurology1Team MemberRelationshipSpecialtyStart DateEnd Date Parviz Stewart MD [address] [place] [address] PCP - [facility]05/10/23 Carmela Lester NP [address] [place] [address] Referring PhysicianNurse Practitioner10/04/22 Carmela Lester NP [address] [place] [address] Nurse PractitionerFamoly Medicine05/10/23 Den Chávez DO [address] [place] [address] Referring PhysicianNeurolog03/27/24 Jessica Venegas NP [address] [place] [address] Nurse PractitionerNeurology1Team MemberRelationshipSpecialtyStart DateEnd Date Parviz Stewart MD [address] [place] [address] PCP - [facility]05/10/23 Carmela eLster NP [address] [place] [address] Referring PhysicianNLafayette Regional Health Center10/04/22 Carmela Lester NP [address] [place] [address] [facility]05/10/23 Den Chávez DO [address] [place] [address] Referring PhysicianNeurolog03/27/24 Jessica Venegas NP [address] [place] [address] Nurse PractitionerNeurolog03/27/24Team MemberRelationshipSpecialtyStart DateEnd Date Parviz Stewart MD [address] [place] [address] PCP - [facility]05/10/23 Carmela Lester NP [address] [place] [address] Referring PhysicianNurse Practitioner10/04/22 Carmela Lester NP [address] [place] [address] Nurse PractitionerFamily Medicine05/10/23 Den Chávez DO [address] [place] [address] Referring PhysicianNeurolog03/27/24 Jessica Venegas NP [address] [place] [address] Nurse PractitionerNeurolog03/27/24Team MemberRelationshipSpecialtyStart DateEnd Date Parviz Stewart MD [address] [place] [address] PCP - [facility]Ha[facility] Healthcarely [facility]05/10/23 Carmela Lester NP [address] [place] [address] Referring PhysicianNurse Practitioner10/04/22 Carmela Lester NP [address] [place] [address] Nurse PractitionerFamily Medicine05/10/23 Den Chávez DO [address] [place] [address] Referring PhysicianNeurolog03/27/24 Jessica Venegas NP [address] [place] [address] Nurse PractitionerNeurologTeam MemberRelationshipSpecialtyStart DateEnd Date Parviz Stewart MD [address] [place] [address] PCP - [facility]05/10/23 Carmela Lester NP [address] [place] [address] Referring PhysicianNurse Practitioner10/04/22 Carmela Lester NP [address] [place] [address] Nurse Pract[facility]erP[facility]05/10/23 Den Chávez DO [address] [place] [address] Referring PhysicianNeurolog03/27/24 Jessica Venegas NP [address] [place] [address] Nurse PractitionerNeurolog03/27/24 Team Status: Active Member Role Status Dates Carmela Lester NP-C Primary Care Provider Active Team Status: Inactive Member Role Status Dates Carmela Lester NP-C Primary Care Provider Active Start: December 12, 2024 End: December 12, 2024Carmela Lester NP-CAttending ProviderActiveStart: December 12, 2024 End: December 12, 2024Team MemberRelationshipSpecialtyStart DateEnd Date Parviz Stewart MD PCP - [facility]05/10/23 Carmela Lester NP Referring PhysicianNurse Practitioner10/04/22 Carmela Lester NP Nurse PractitionerFamoly Medicine05/10/23 Den Chávez DO [address] [place] [address] Referring PhysicianNeurolog03/27/24 Jessica Venegas NP [address] [place] [address] Nurse PractitionerNeurolog03/27/24Team MemberRelationshipSpecialtyStart DateEnd Date Parviz Stewart MD PCP - [facility]05/10/23 Carmela Lester NP Referring PhysicianNurse Practitioner10/04/22 Carmela Lester NP Nurse PractitionerCh[facility] Medicine05/10/23 Den Chávez DO [address] [place] [address] Referring PhysicianNeurolog03/27/24 Jessica eVnegas NP [address] [place] [address] Nurse PractitionerNeurolog03/27/24 Goals (unrecognized section and content) [...] of skin Procedures [place] [facility] Milton Appiah MD Phone: tel: fax: Addy Lynn MD [address] [place] [address] Phone: tel: fax: Referral IDStatusReasonStart DateExpiration DateVisits RequestedVisits [id number] Consult and Treat /[id number] FOR RECORDS PERTAINING TO PATIENTS WHO ARE [...] BE BASED ON THE PRIMARY CLINICAL RECORDS. [employer] provides no warranty or guarantee of the accuracy or completeness of information in this document.
--- NOTE | 2025-01-31 08:47 | PM.CN ---
Consult Note: HPI Data of Consult Patient: known to practice within the last 3 years Consult date: 01/31/25 Requesting Physician: Jaz Haley NP Primary Care Provider: Carmela Lester NP Consult Narrative Reason for consult: neck, hands, bilateral feet pain Narrative: 54yof who presents for evaluation of chronic joint pain and neck pain. Since last visit she has noticed moderate improvement in her pain and quality of life with duloxetine 20mg HS, she cannot tolerate daytime dosing due to drowsiness. notes pain 0/10 intermittently up to 4/10 in neck, hands, feet. cc:: CC: Jaz Haley NP Review of Systems ROS Musculoskeletal Denies: neck pain or joint pain [facility] Medical History (Updated 10/10/24 @ 13:55 by Jaz Haley NP) HTN (hypertension) ?I10 - Essential (primary) hypertension (ICD-10) Myocardial infarction ?I21.9 - Acute myocardial infarction, unspecified (ICD-10) Surgical History History of ankle surgery ?Z98.890 - Other specified postprocedural states (ICD-10) History of heart bypass surgery ?Z95.1 - Presence of aortocoronary bypass graft (ICD-10) Meds Home Medications and Allergies Home Medications ?Medication ?Instructions ?Recorded ?Confirmed ?Type aspirin 81 mg capsule 81 mg PO DAILY 10/31/23 07/09/24 History atorvastatin 80 mg tablet 80 mg PO DAILY 10/31/23 07/09/24 History ezetimibe 10 mg tablet 10 mg PO DAILY 10/31/23 07/09/24 History isosorbide mononitrate 120 mg 120 mg PO DAILY 10/31/23 07/09/24 History tablet,extended release 24 hr levothyroxine 75 mcg capsule 75 mcg PO DAILY 10/31/23 07/09/24 History lisinopril 20 mg tablet 20 mg PO BID 10/31/23 07/09/24 History metoprolol tartrate 100 mg tablet 125 mg PO BID 10/31/23 07/09/24 History (Lopressor) verapamil 80 mg tablet 80 mg PO TID 10/31/23 07/09/24 History gabapentin 300 mg capsule 900 mg (3 x 300 mg) PO BID #180 06/21/24 07/09/24 Rx caps gabapentin 300 mg capsule See Rx Instructions .Route 08/01/24 Rx .COMPLEX #180 caps gabapentin 300 mg capsule See Rx Instructions .Route 09/05/24 Rx .COMPLEX #180 caps duloxetine 30 mg capsule,delayed 30 mg PO BID #60 caps 11/21/24 Rx release Allergies Allergy/AdvReac Type Severity Reaction Status Date / Time adhesive Allergy Rash Verified 07/09/24 08:46 Exam Constitutional Documenting provider has reviewed patient's vital signs: yes Common normals: no apparent distress, oriented x3 and alert General appearance: cooperative HENMT Common normals: normocephalic, hearing grossly normal bilaterally and moist oral mucous membranes Head and scalp: normocephalic Eye Common normals: PERRL Pupil: PERRL Neck & C-Spine Common normals: full ROM General: normal visual inspection Cervical spine: cervical ROM normal, normal cervical lordosis and pain with cervical ROM with rotation to the right; no cervical spine tenderness Other: strength 4/5 in RUE and 5/5 in LUE Chest Common normals: inspection of chest normal Respiratory Common normals: normal respiratory effort, no retractions and no use of accessory muscles Neuro Common normals: oriented x3 Sensorium/orientation: alert Psych Common normals: mental status grossly normal, thought process normal, cooperative, affect normal, speech normal and activity/motor behavior normal Speech: normal speech Thought process: normal thought process Results Additional Findings Additional findings: If on a controlled substance or opioids, I have checked an [place] report on this patient and there are no aberrancies noted in the prescribing history.??If on a controlled substance or opioid a drug screen was completed and reviewed within the last year, and if there has not been a drug screen completed we ordered one today to monitor higher risk, state monitored pain medication use. As part of providing excellent, safe, comprehensive care, the following was completed at our patient's visit: 1. A medication reconciliation and review to ensure accurate knowledge of current/active medications, including asking our patients to inform us about any [id number] medications or herbal remedies/nutritional supplements/alternative remedies. 2. A review to specifically ensure our patients have had annual screening for screening for depression, screening for tobacco use, and screening for unhealthy alcohol use. For concerning screenings had a discussion with the patient, provided patient education, and recommended follow-up with primary care provider when appropriate. If patient noted with a risk of falling, they received education on strength, gait, and balance training to prevent future risk of falling. Portions of this note may have been carried over from the previous visit and updated as appropriate. Please note this office utilizes paper charting in addition to the electronic medical record. A list of current medications, vitals, and PMH is available there as the clinical staff outside of myself do not have access to [employer] charting during the clinic day operations. As part of providing quality comprehensive care the current medications, vitals, and PMH were reviewed in the paper chart. Assessment and Plan Assessment and Plan (1) Cervical spondylosis: Assessment and Plan: CLYDE 10% with moderate to severe pain impacting adls, sleep, social life, travel (2) Chronic pain syndrome: (3) Cervical stenosis of spinal canal: (4) Cervical radiculopathy: (5) Osteoarthritis: (6) Diffuse arthralgia: Plan decrease duloxetine 20mg hs chronic pain syndrome and OA utilizing voltaren gel PRN f/u 3 months, sooner if needed
== END 2025-01-31 08:20 | disposition home or self-care (01) ==
LOC: PM 08:19
PROVIDERS: PCP Nurse Practitioner; Visit Provider Nurse Practitioner
DX: M47.812 Spondylosis without myelopathy or radiculopathy, cervical region (principal); G89.4 Chronic pain syndrome; M48.02 Spinal stenosis, cervical region; M54.12 Radiculopathy, cervical region; M19.90 Unspecified osteoarthritis, unspecified site; M25.59 Pain in other specified joint
CPT/HCPCS: G0463

== ENCOUNTER 2025-02-02 09:41 | Outpatient (OUT) | payer OTHER, SELFPAY ==
--- OUTSIDE RECORDS SUMMARY | 2025-02-02 09:44 | XMS_ITS | CCD ---
Author Organization [facility] Care Team Providers Care Aerospace Engineer Name Role Phone AICHHOLZ, AUTO PARTS MANAGER CARMELA Admitting Unavailable AICHHOLZ, AUTO PARTS MANAGER CARMELA Attending Unavailable AICHHOLZ, AUTO PARTS MANAGER CARMELA Primary Care Unavailable AICHHOLZ, AUTO PARTS MANAGER CARMELA Consulting Unavailable AICHHOLZ, AUTO PARTS MANAGER CARMELA Admitting Unavailable AICHHOLZ, AUTO PARTS MANAGER CARMELA Attending Unavailable AICHHOLZ, AUTO PARTS MANAGER CARMELA Primary Care Unavailable AICHHOLZ, AUTO PARTS MANAGER CARMELA Consulting Unavailable AICHHOLZ, AUTO PARTS MANAGER CARMELA Admitting Unavailable AICHHOLZ, AUTO PARTS MANAGER CARMELA Attending Unavailable AICHHOLZ, AUTO PARTS MANAGER CARMELA Primary Care Unavailable AICHHOLZ, AUTO PARTS MANAGER CARMELA Consulting Unavailable AICHHOLZ, AUTO PARTS MANAGER CARMELA Admitting Unavailable AICHHOLZ, AUTO PARTS MANAGER CARMELA Attending Unavailable AICHHOLZ, AUTO PARTS MANAGER CARMELA Primary Care Unavailable AICHHOLZ, AUTO PARTS MANAGER CARMELA Consulting Unavailable Aichholz, Carmela J Primary Care Provider [phone] ORLY Comer Attending Provider ORLY Comer Attending Provider ORLY Comer Attending Provider DO Milton Appiah Attending Provider [phone] Aichholz, Carmela J Primary Care Provider Milton Appiah DO Attending Provider Aicjaneholz SOFTWARE SALES EXECUTIVE, Carmela Unavailable Parviz Stewart MD Primary Care Provider [phone] Aichholz SOFTWARE SALES EXECUTIVE, Carmela Unavailable Milton Appiah Attending Unavailable Milton [...] Care Unavailable Den Chávez DO Unavailable Theo SOFTWARE SALES EXECUTIVE, Jessica Unavailable [phone] ELTAHAWY, EHAB Attending Unavailable [place]TAHAWY, EHAB Attending Unavailable Giedraitis , Andrius Vytautas Attending Unavailable Giedraitis , Andrius Vytautas Attending Unavailable Giedraitis , Andrius Vytautas Attending Unavailable Giedraitis , Andrius Vytautas Attending Unavailable Theo SOFTWARE SALES EXECUTIVE, Jessica Unavailable DEN CHÁVEZ Attending Unavailable CARMELA LESTER Attending Unavailable ASHUTOSH QUINTANA Attending Unavailable CARMELA LESTER Referring Unavailable DEN CHÁVEZ Attending Unavailable MILTON APPIAH Referring Unavailable Trevon SOFTWARE SALES EXECUTIVE-CCarmela Primary Care Provider Trevon SOFTWARE SALES EXECUTIVE-CCarmela Attending Provider Trevon BENITEZ, Carmela Unavailable Parviz Stewart MD Primary Care Provider [phone] Trevon BENITEZ, Carmela Unavailable Den Chávez DO Unavailable Theo BENITEZ, Jessica Unavailable Allergies Allergy ClassificationReported Allergen(s)Allergy TypeDate of OnsetReaction(s) Facility (1 source)DesonideDrug Ieurbgi95-81-9582Eeu [facility] Repository (20 sources)Wound Dressing AdhesiveDrug Rhecynk61-88-5835XsidaNLUY [facility] Medications Current Medications MedicationDrug Class(es)DatesSig (Normalized)Sig (Original)allopurinol 300 mg oral tablet (8 sources)Xanthine Oxidase InhibitorStart: 48-13-6612Rdnjnwyuhmz 300 mg tablet Active MG PO October 06, 2023 12:00am Complies with drug therapyStart: 10-06-2023 Allopurinol Active MG PO October 06, 2023 12:00amaspirin 81 mg delayed release oral tablet (8 sources)Platelet Aggregation Inhibitor, Nonsteroidal Anti-inflammatory Drug Start: 13-02-5875Dakgkcv (Adult Low Dose Aspirin) 81 mg tablet,delayed release (DR/EC) Active 81 MG PO Daily October 06, 2023 12:00am Complies with drug therapy atorvastatin 80 mg oral tablet (20 sources)HMG-CoA Reductase InhibitorStart: 36-90-2857Iffcufepemdl Active MG PO October 06, 2023 12:00amStart: 08-10-2023 End: 86-56-0228Ukgvfnsgqacn 80 mg tablet Active MG PO October 06, 2023 12:00am Complies with drug therapydiclofenac sodium 0.01 mg/mg topical gel (3 sources)Nonsteroidal Anti-inflammatory DrugStart: 10-16-2024 End: 01-06-7232bobwnzweqs sodium (Voltaren) 1 % gel Indications: Bilateral [...] oral tablet (20 sources)Dietary Cholesterol Absorption InhibitorStart: 24-91-7060Vkqtwzvfo Active MG PO October 06, 2023 12:00amStart: 08-10-2023 End: 19-47-3588Yfqwwtayk 10 mg tablet Active MG PO October 06, 2023 12:00am Complies with drug therapygabapentin 300 mg oral capsule (20 sources)Anti-epileptic AgentStart: 78-39-5692wqmi 2 capsules by mouth three times daily as neededGabapentin 300 mg capsule Active 600 MG PO Three times daily as needed December 26, 2023 10:04am Complies with drug therapyStart: 00-03-1843foys 600 mg by mouth three times dailyGabapentin Active 600 MG PO Three times daily December 26, 2023 10:04amStart: 10-06-2023 End: 81-07-7165Qbymmkdkve Discontinued MG PO October 06, 2023 12:00am December 26, 2023 10:06amStart: 08-10-2023 End: 21-49-7282Vvxikmhpmr 300 mg capsule Discontinued MG PO October 06, 2023 12:00am December 26, 2023 10:06am24 hr isosorbide mononitrate 120 mg extended release oral tablet (20 sources)Nitrate VasodilatorStart: 05-21-2024 End: 90-05-5363lnwk 1 tablet by mouth once daily in the morningisosorbide mononitrate ER (Imdur) 120 MG 24 hr tablet Indications: 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 , Essential hypertension Take 1 tablet (120 mg) by mouth Daily Do not crush or chew. Take 120 mg by mouth in the morning. Do not crush or chew. . 90 tablet 1 09/11/2024 12/10/2024 ActiveStart: 18-19-2442legm 1 tablet by mouth every twenty-four hoursIsosorbide Mononitrate 120 mg tablet extended release 24 hr Active MG PO October 06, 2023 12:00am Complies with drug therapyStart: 08-10-2023 End: 57-67-1101ydsv 1 tablet by mouth once daily in the morningisosorbide mononitrate ER (Imdur) 120 MG 24 hr tablet Indications: 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 (CMS/HCC) , Essential hypertension (CMS/HCC) Take 1 tablet (120 mg) by mouth Daily Do not crush or chew. Take 120 mg by mouth in the morning. Do not crush or chew. . 90 tablet 1 11/22/2023 Activelevothyroxine sodium 0.075 mg oral tablet (20 sources)l-ThyroxineStart: 21-96-1903Hsphohnnzsixl Active MCG PO October 06, 2023 12:00amStart: 08-10-2023 End: 93-33-6783vmbu 1 tablet by mouth before mealtimelevothyroxine (Synthroid, Levoxyl) 75 MCG tablet Indications: Hypothyroidism (acquired) Take 1 tablet (75 mcg) by mouth in the morning. Take before meals. 90 tablet 1 09/11/2024 12/10/2024 Activelisinopril 20 mg oral tablet (20 sources)Angiotensin Converting Enzyme InhibitorStart: 34-66-2242kjej 1 tablet by mouth twice dailyLisinopril 20 mg tablet Active 20 MG PO Twice daily December 12, 2024 7:02am Complies with drug therapyStart: 26-00-7374Hbtcaktaag Active MG PO October 06, 2023 12:00amStart: 08-10-2023 End: 19-63-7440oibw 1 tablet by mouth in the morninglisinopril 20 MG tablet Indications: Primary hypertension , Essential hypertension Take 1 tablet (20 mg) by mouth in the morning and 1 tablet (20 mg) before bedtime. 180 tablet 1 09/11/2024 12/10/2024 Activemetoprolol tartrate 25 mg oral tablet (20 sources)beta-Adrenergic BlockerStart: 05-21-2024 End: 63-40-5623trnt 1 tablet by mouth twice dailyMetoprolol Tartrate 25 mg tablet Active 25 MG PO Twice daily December 11, 2024 12:00am Complies with drug therapyStart: 05-21-2024 End: 54-75-8317nupz 1 tablet by mouth in the morningmetoprolol tartrate (Lopressor) 100 MG tablet Indications: Primary hypertension , Essential hyperten dominguez Take 1 tablet (100 mg) by mouth in the morning and 1 tablet (100 mg) before bedtime. 180 tablet 1 09/11/2024 12/10/2024 ActiveStart: 03-14-2024 End: 85-34-4939khlx 1 tablet by mouth in the morningmetoprolol tartrate (Lopressor) 25 MG tablet Indications: Essential hypertension (CMS/HCC) Take 1 ta blet (25 mg) by mouth in the morning and 1 tablet (25 mg) before bedtime. 60 tablet 1 03/14/2024 04/13/2024 ActiveStart: 01-13-2024 End: 90-94-9919pihp 1 tablet by mouth in the morningmetoprolol tartrate (Lopressor) 25 MG tablet Indications: Essential hypertension (CMS/HCC) Take 1 ta blet (25 mg) by mouth in the morning and 1 tablet (25 mg) before bedtime. 60 tablet 1 01/13/2024 ActiveStart: 78-34-5849Snjpgepane Tartrate 100 mg tablet Active 125 MG PO Twice daily December 26, 2023 10:05am Complies with drug therapyStart: 27-03-4299wbbs 125 mg by mouth twice dailyMetoprolol Tartrate Active 125 MG PO Twice daily December 26, 2023 10:05amStart: 10-06-2023 End: 87-23-5814Hcxcfmdzfm Tartrate Discontinued MG PO October 06, 2023 12:00am December 26, 2023 10:06amStart: 08-10-2023 End: 90-07-7908vzuf 1 tablet by mouth in the morningmetoprolol tartrate (Lopressor) 25 MG tablet Indications: Essential hypertension (CMS/HCC) Take 1 ta blet (25 mg) by mouth in the morning and 1 tablet (25 mg) before bedtime. 60 tablet 1 11/22/2023 12/22/2023 ActiveStart: 08-10-2023 End: 63-52-5304Kmhexjnavo Tartrate 100 mg tablet Discontinued MG PO October 06, 2023 12:00am December 26, 2023 10:06amnitroglycerin 0.4 mg sublingual tablet (20 sources)Nitrate VasodilatorStart: 18-84-7085Amcnnkcwvthlm Active MG SUBLINGUAL December 26, 2023 12:00amStart: 05-10-2023 End: 02-29-5140Qngqkfgpkgloi 0.4 mg tablet, sublingual Active MG SUBLINGUAL December 26, 2023 12:00am Complies with drug therapyNitroglycerin 0.4 mg tablet, sublingual (1 source)Start: 36-80-3958Vyzqiglthubcd 0.4 mg tablet, sublingual Active MG SUBLINGUAL December 25, 2023 11:00pmtiZANidine 4 mg oral tablet (20 sources)Central alpha-2 Adrenergic AgonistStart: 98-19-3671Unlsidjnzd Active MG PO October 06, 2023 12:00amStart: 84-15-3902isOEOqhwke (Zanaflex) 4 MG tablet Indications: Trapezius muscle spasm Take 1 tablet (4 mg) by mouthas needed at bedtime for muscle spasms for up to 15 days May cut pill in half and take 1/2 pill at bedtime 15 tablet 1 08/10/2023 Activeverapamil hydrochloride 80 mg oral tablet (20 sources)Calcium Channel BlockerStart: 12-46-2117Pveyafkfh Active MG PO October 06, 2023 12:00amStart: 08-10-2023 End: 64-80-3776Pmjssdrco 80 mg tablet Active MG PO October 06, 2023 12:00am Complies with drug therapy Problems Active Problems Problem ClassificationProblemDateDocumented DateEpisodic/ChronicAcute myocardial infarction (20 sources)Myocardial infarction; Translations: [Acute myocardial infarction, unspecified]Onset: 803332-60-8277WrgnifqPsqssnwu atherosclerosis and other heart disease (20 sources)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; Translations: [Angina pectoris]Onset: ChronicDisorders of lipid metabolism (20 sources)Pure hyperglyceridemia; Translations: [Hyperlipidemia, unspecified] Onset: 18-04-8027PxqxodqIpmrpigtni disorders (20 sources)Gastroesophageal reflux disease; Translations: [Gastro-esophageal reflux disease without esophagitis]Onset: 632442-41-4290ArgwtemHwsdoghrw hypertension (20 sources)Essential (primary) hypertension; Translations: [Hypertensive disorder]Onset: 13-26-3240AtdlgfkOeye and other crystal arthropathies (20 sources)Gout, unspecified; Translations: [Primary gout]Onset: 01-26-2022 13-90-6412NcujcyaZrwvehz and fatigue (1 source)Other fatigue; Translations: [OTHER FATIGUE]Onset: 38-11-7599Fgeewpyy Menstrual disorders (20 sources)Menorrhagia; Translations: [Excessive and frequent menstruation with regular cycle]Onset: 013757-83-1053SpmqecsQbfwdyspmsp deficiencies (20 sources)Vitamin D deficiency; Translations: [Vitamin D deficiency, unspecified]Onset: 578071-34-4792TekzvqiOacwz connective tissue disease (7 sources)Pain in upper limb; Translations: [Pain in arm, unspecified] 76-76-2068EymfmdnxFczxk connective tissue disease (12 sources)Pain in arm, unspecified; Translations: [Pain in limb]10-06-2023 EpisodicOther connective tissue disease (1 source)Pain in right arm; Translations: [Pain in right arm]Onset: 03-02-2024 EpisodicOther nervous system disorders (7 sources)Ulnar neuropathy; Translations: [Lesion of ulnar nerve, unspecified upper limb]40-12-4071BwrchesMdgdq nervous system disorders (11 sources)Lesion of ulnar nerve, unspecified upper limb; Translations: [Lesion of ulnar nerve]Onset: 577292-66-8757ZyawzsyGemem nervous system disorders (20 sources)Neuropathy; Translations: [Polyneuropathy, unspecified]Onset: 798608-51-1110XiletkvSdhtz nervous system disorders (20 sources)Sensory neuropathy; Translations: [Polyneuropathy, unspecified] Onset: 018521-86-1212WyiefsqVqcif nervous system disorders (3 sources)Idiopathic peripheral neuropathy; Translations: [Hereditary and idiopathic neuropathy, unspecified]73-65-0003ZktoiagOagxt nervous system disorders (2 sources)Numbness and tingling sensation of skin; Translations: [Anesthesia of skin]56-07-6638SearamwfYinwf non-traumatic joint disorders (2 sources)Joint pain; Translations: [Pain in unspecified joint]03-26-2024 EpisodicOther nutritional; endocrine; and metabolic disorders (1 source)Overweight; Translations: [OVERWEIGHT]Onset: 50-42-4647AsmqbosdZkfyu upper respiratory disease (20 sources)Seasonal allergy; Translations: [Other seasonal allergic rhinitis] Onset: 718306-47-5036DppnhhxFbztaixkue and visceral atherosclerosis (20 sources)Peripheral vascular disease, unspecified; Translations: [Peripheral vascular disease, unspecified]Onset: 269518-65-9647OwjmhsuWllujhtn codes; unclassified (20 sources)Obstructive sleep apnea syndrome; Translations: [Obstructive sleep apnea (adult) (pediatric)]Onset: 102223-20-4117AhcgaoqHctkqqvzqvn; intervertebral disc disorders; other back problems (20 sources)Pain in cervical spine; Translations: [Cervical disc disorder, unspecified, unspecified cervical region]Onset: hronic Substance-related disorders (12 sources)Tobacco dependence caused by cigarettes; Translations: [Nicotine dependence, cigarettes, uncomplicated]Onset: 305901-41-5497EwuixrzJfifqdn disorders (20 sources)Hypothyroidism, unspecified; Translations: [Acquired hypothyroidism] Onset: 36-25-1990Ifxicgs Past or Other Problems Problem ClassificationProblemDateDocumented DateEpisodic/ChronicChronic obstructive pulmonary disease and bronchiectasis (20 sources)Bronchitis; Translations: [Bronchitis, not specified as acute or chronic]Onset: 02-07-2023 Resolved: 212410-52-3421IaaixwcfImal; stupor; and brain damage (20 sources)Daytime somnolence; Translations: [Somnolence]Onset: 09-26-2023 23-13-4039CymwfdagEeczvdcg of lower limb (20 sources)Closed fracture of head of fibula; Translations: [Other fracture of upper and lower end of unspecified fibula, subsequent encounter for closed fracture with routine healing]Onset: 05-10-2023 Resolved: 770856-55-2823QlidifuhCvrhrcvvbddxx symptoms and ill-defined conditions (20 sources)Asymptomatic microscopic hematuria; Translations: [Asymptomatic microscopic hematuria]Onset: 777045-91-4297EjgpoegjYwzrlsbuckf deficiencies (20 sources)Cobalamin deficiency; Translations: [Deficiency of other specified B group vitamins]Onset: 535820-62-8820PoykmzrdNxtyb connective tissue disease (20 sources)Pain of bilateral hands; Translations: [Pain in right hand]Onset: 679625-41-5227OigllflsAapct connective tissue disease (20 sources)Muscle spasm of cervical muscle of neck; Translations: [Other muscle spasm]Onset: 05-10-2023 Resolved: 250229-04-8727IwqkebrfKvola lower respiratory disease (20 sources)Snoring; Translations: [Snoring]Onset: 108942-45-5584Aymqwfqb Other nervous system disorders (20 sources)Paresthesia; Translations: [Paresthesia of skin]Onset: 09-26-2023 82-51-7467DjsqxxfzPejnhryl codes; unclassified (20 sources)Finding of systemic arterial pressure; Translations: [Other general symptoms and signs]Onset: 603901-61-0059YrazyqxhHibppjsn codes; unclassified (20 sources)Tobacco user; Translations: [Tobacco use]Onset: 05-10-2023 Resolved: 593896-76-8130AtsuathnMsmwowwyzwd; intervertebral disc disorders; other back problems (20 sources)Cervical radiculopathy; Translations: [Radiculopathy, cervical region]Onset: 476639-60-2314Vtiiejus Results Test NameValueInterpretationReference RangeFacilityXR Hand - bilateral 2 Viewson 62-12-5204[place] [address] XRay Report Signed Patient: DIANE MENDOZA MR#: [id number] : 1970 Acct:[id number] Age/Sex: 54 / F ADM Date: 10/10/24 Loc: [facility] Attending Dr: Carmela Lester NP Ordering Physician: Carmela Lester NP Date of Service: 10/10/24 Procedure(s): XR hand ALYSSA 2V Accession Number(s): [id number] cc: Carmela Lester NP [place] [id number] Patient Name: DIANE MENDOZA MRN: [id number] date: 1970 Sex: F Assigned Patient Location: RAD Current Patient Location: RAD Accession/Order Number: [id number] Exam Date: 10/10/2024 14:34 Report Date: 10/10/2024 [...] Jr., D.O. 10/10/2024 2:35 PM Dictation Location: [place] [address] Electronically authenticated by: [id number] Y Date: 10/10/2024 14:35 Dictated By: Supa Morales M.D. Signed By: 10/10/247 DD/ 34 TD/TT: Food Sanitarian:TBHRadiology, Radiologist, - 10/10/2024 [place] [address] XRay Report Signed Patient: DIANE MENDOZA MR#: [id number] : 1970 Acct:[id number] Age/Sex: 54 / F ADM Date: 10/10/24 Loc: [facility] Attending Dr: Carmela Lester NP Ordering Physician: Carmela Lester NP Date of Service: 10/10/24 Procedure(s): XR hand ALYSSA 2V Accession Number(s): [id number] cc: Carmela Lester NP The [place] [phone] Patient Name: DIANE MENDOZA MRN: [id number] date: 1970 Sex: F Assigned Patient Location: [facility] Current Patient Location: [facility] Accession/Order Number: [id number] Exam Date: 10/10/2024 14:34 Report Date: 10/10/2024 [...] Jr., D.O. 10/10/2024 2:35 PM Dictation [facility] Electronically authenticated by: [id number] Y Date: 10/10/2024 14:35 Dictated By: Supa Morales M.D. Signed By: 10/10/24 143 DD/ 34 TD/TT: Food Sanitarian: LILY HealthcareRadiology Study observation (narrative)[facility] HospitalXR Hand - bilateral 2 ViewsOrdered By: Radiologist Radiology on 43-89-4980NQKWColumbia Regional Hospital Work Phone: all CBC WITH AUTO DIFFon 27-30-8037SBGYXABWJ ABSOLUTE AUTO0.1NOMS HealthcareBasophils/100 WBC (Bld)1.5 %0.2 - 2.0 %[facility] Eosinophils/100 WBC (Bld)2.6 %0.9 - 7.0 %[facility] HospitalErythrocyte distribution width (RBC) [Ratio]11.8 %11.0 - 15.0 %[facility] HospitalHematocrit (Bld) [Volume fraction]41.2 %36.0 - 48.0 %[facility] HospitalHemoglobin (Bld) [Mass/Vol]13.7 g/dL 12.0 - 16.0 g/dLColumbia Regional HospitalIMMATURE GRANULOCYTES ABS AUTO0.02NONortheast [facility] Immature granulocytes/100 WBC (Bld)0.3 %0.0 - 0.5 %[facility] HospitalLYMPHOCYTES ABSOLUTE AUTO2.1NOMS HealthcareLymphocytes/100 WBC (Bld)35.1 %20.5 - 60.0 %[facility] HamiltonH (RBC) [Entitic mass]31.6 pg26.7 - 34.0 pgNOLakeland Regional HospitalHC (RBC) [Mass/Vol]33.3 g/dL29.9 - 35.2 g/dLNOLakeland Regional HospitalV (RBC) [Entitic vol]95.2 fL 81.0 - 99.0 fLNOCO HealthcareMONOCYTES ABSOLUTE AUTO0.6N[facility] Healthcare Monocytes/100 WBC (Bld)9.4 %1.7 - 12.0 %NOM HealthcareNEUTROPHILS ABSOLUTE AUTO 3.1NOMS HealthcareNeutrophils/100 WBC (Bld)51.1 %43.0 - 75.0 %[facility] Healthcare Platelet mean volume (Bld) [Entitic vol]11.5 fL9.5 - 13.5 fLColumbia Regional HospitalTBH EO #0.2NOMS HealthcareTBH HLX727CVXB HealthcareTBH RBC4.33NOCO HealthcareTBH WBC 6NOCO HealthcareCLINISYNCNOMS HealthcareOffice Visiton 46-99-0978Ppbany-up visit [id number] Diane Mendoza 1970 F Date Provider Department Center 06/04/2024 [facility] Family History Problem Relation Age of Onset Coronary artery disease Father Family Status - Relation Status Age at Father Level of Service:52638 AL OFFICE/OUTPATIENT ESTABLISHED LOW [facility]DM 20 [facility]EM[facility] 2 Extremitieson 32-81-0314KDO/NCS BLE Moderate left chronic S1 radicNOMS HealthcareNOMS HealthcareNVC 9-10 Nerveson 46-61-6623ZWO/NCS BLE Moderate left chronic S1 radicNOMS HealthcareNVC 9-10 NervesOrdered By: Den Chávez on 43-63-9359JNMV Healthcare Work Phone: aLL FOLIC ACIDon 00-08-8871WDLWFW5.3 ng/mLLow8.60 - 58.90 ng/mLNOMS HealthcareInterpretation and review of laboratory results AbnormalNOMS HealthcareCLINISYNCNOMS HealthcareMR head/brain wo/w conon 32-13-4206LC head/brain wo/w [address] [address] MRI Report Signed Patient: Diane Mendoza MR#: [id number] 98 : 1970 Acct:[id number] Age/Sex: 54 / F ADM Date: 03/02/24 Loc: MR Room: Type: [facility] Attending Dr: Milton Appiah DO Copies [...] Gini Solis M.D.03/02/2024 11:22 PM Dictation Location: [place] [address] Transcribed By: [facility] 03/02/242321 Dictated By: Gini Solis MD 03/02/242311 Signed By: 03/02/24 [facility] cervical spine wo [facility] 86-87-0930YK cervical spine wo [facility] [address] [place] [address] [place] [address] MRI Report Signed Patient: Diane Mendoza MR#: [id number] 98 : 1970 Acct:[id number] Age/Sex: 53 / F ADM Date: 01/13/24 Loc: MR Room: Type: [facility] Attending Dr: Milton Appiah DO Copies [...] Dank Camara M.D.01/13/2024 9:02 PM Dictation Location: [place] [address] Transcribed By: [facility] 01/13/242101 Dictated By: Dank Camara DO 01/13/242053 Signed By: 01/13/242101DeSoto Memorial Hospital Physician GroupXR cerv spine AP/LAT/FLX/EXTon 15-01-9092OQ cerv spine AP/LAT/FLX/EXTCLEVELAND [facility] [address] [place] [address] [place] [address] XRay Report Signed Patient: Diane Mendoza MR#: [id number] 98 : 1970 Acct:[id number] Age/Sex: 53 / F ADM Date: 10/27/23 Loc: XD Room: Type: [facility] Attending Dr: Loly Comer APRN Copies [...] Dank Camara M.D.10/27/2023 4:13 PM Dictation Location: [place] [address] Transcribed By: [facility] 10/27/23 1613 Dictated By: Dank Camara DO 10/27/23 1611 Signed By: 10/27/[address] [place] [address] Physician GroupMR Cervical spine WO contraston 07-36-3721Jhp[place] [address] Magnetic Resonance Report Signed Patient: DIANE MENDOZA MR#: [id number] : 1970 Acct:[id number] Age/Sex: 53 / F ADM Date: 09/02/23 Loc: MRI Attending Dr: Carmela Lester NP Ordering Physician: Carmela Lester NP Date of Service: 09/02/23 Procedure(s): MR cervical spine wo con Accession Number(s): [id number] cc: Carmela Lester NP [place] [phone] Patient Name: DIANE MENDOZA MRN: [id number] date: 1970 Sex: F Assigned Patient Location: MRI Current Patient Location: Accession/Order Number: [id number] Exam Date: 09/02/2023 14:05 Report Date: 09/05/2023 [...] Signed By: 09/05/23 0654 DD/ 0652 TD/TT: Food Sanitarian:SOMMERadiology, Radiologist, - 09/05/2023 [place] [address] Magnetic Resonance Report Signed Patient: DIANE MENDOZA MR#: [id number] : 1970 Acct:[id number] Age/Sex: 53 / F ADM Date: 09/02/23 Loc: MRI Attending Dr: Carmela Lester NP Ordering Physician: Carmela Lester NP Date of Service: 09/02/23 Procedure(s): MR cervical spine wo con Accession Number(s): [id number] cc: Carmela Lester NP [place] [address] Patient Name: DIANE MENDOZA MRN: [facility]:[id number] date: 1970 Sex: F Assigned Patient Location: MRI Current Patient Location: Accession/Order Number: [id number] Exam Date: 09/02/2023 14:05 Report Date: 09/05/2023 [...] M.D. Signed By: 09/05/2354 DD/ 1 TD/TT: Food Sanitarian: LILY HealthcareRadiology Study observation (narrative)[facility] Cervical spine WO contrastOrdered By: Radiologist Radiology on 43-09-6108OEGW [facility] Work Phone: Office Visiton [phone]-up [phone] Diane Mendoza 1970 F Date Provider Department Center 06/08/[address] [place] [address], [facility] Family History Problem Relation Age of Onset Coronary artery disease Father Family Status - Relation Status Age at Father Level of Service:52208 AL OFFICE/OUTPATIENT [facility] 30 MINUTESNormal [facility] HospitalCA ECHO DOPPLER COMPLETEon 81-19-9029KmxLe[place] [address] Cardiology Report Signed Patient: DIANE MENDOZA MR#: [id number] : 1970 Acct:[id number] Age/Sex: 53 / F ADM Date: 05/26/23 Loc: CARD Attending Dr: Carmela Lester NP Ordering Physician: Carmela Lester NP Date of Service: 05/26/23 Procedure(s): CA echo doppler complete Accession Number(s): [id number] cc: Carmela Lester NP Patient Name: DIANE MENDOZA MR#: [id number] : 1970 Exam Date: 05/26/2023 Ordering Doctor: DEREK Lester [employer] MA[employer] ECHOCARDIOGRAM REPORT PROCEDURE: CA ECHO DOPPLER COMPLETE [...] not included)...TBHRadiology, Radiologist, MD - 05/27/20[address] [place] [address] Cardiology Report Signed Patient: DIANE MENDOZA MR#: [id number] : 1970 Acct:[id number] Age/Sex: 53 / F ADM Date: 05/26/23 Loc: CARD Attending Dr: Carmela Lester NP Ordering Physician: Carmela Lester NP Date of Service: 05/26/23 Procedure(s): CA echo doppler complete Accession Number(s): [id number] cc: Carmela Lester NP Patient Name: DIANE MENDOZA MR#: [id number] : 1970 Exam Date: 05/26/2023 Ordering Doctor: [...] Signed By: 05/27/23 144 DD/ 42 TD/TT: Food Sanitarian: [facility] HospitalRad[facility] (narrative)[facility] ECHO DOPPLER COMPLETEOrdered By: Radiologist Radiology on [id number] Work Phone: cbc AUTO DIFFon [phone] #0.1 103/ulNormal 0.0-0.1The [facility] CenterComment on above:Performed By: #### CBC #### [facility] [address] [address] [address] Candy Resendizls/100 WBC (Bld)0.6 %Normal0.2-2.0The [facility] Comment on above:Performed By: #### CBC #### [facility] [address] [address] [address] Candy Kamara #0.3 103/ulNormal0.0-0.7The [facility] CenterComment on above: Performed By: #### CBC #### [facility] [address] [address] [address] Candy Villagranosinophils/100 WBC (Bld)2.8 %Normal0.9-7.0The [facility] Comment on above:Performed By: #### CBC #### [facility] [address] [place] [address] Dr. Candy Villagranrythrocyte distribution width (RBC) [Ratio]11.9 %Fwlzjd09.0-15.0 The [facility] CenterComment on above:Performed By: #### CBC #### [facility] [address] [place] [address] Dr. Candy CortezHematocrit (Bld) [Volume fraction]39.5 %Ifcisi23.0-48.0The [facility] CenterComment on above:Performed By: #### CBC #### [facility] [address] [place] [address] Dr. Candy CortezHemoglobin (Bld) [Mass/Vol]12.8 g/pNQhmtea79.0-16.0The [facility] CenterComment on above:Performed By: #### CBC #### [facility] [address] [place] [address] Dr. Candy Martiens #0.04 10e3/ulCritically high0.00-0.03The [facility] Comment on above:Performed By: #### CBC #### [facility] [address] [place] [address] Dr. Candy Martines %0.4 %Normal0.0-0.5The [facility] CenterComment on above: Performed By: #### CBC #### [facility] [address] [place] [address] Dr. Candy NairH #3.2 103/ulNormal1.2-3.8The [facility] CenterComment on above:Performed By: #### CBC #### [facility] [address] [place] [address] Dr. Candy Sunmphocytes/100 WBC (Bld)33.9 %Txlcgf06.5-60.0The [facility] CenterComment on above:Performed By: #### CBC #### [facility] [address] [place] [address] Dr. Candy Manzanares DIFF REQNONormalThe [facility] CenterComment on above: Performed By: #### CBC #### [facility] [address] [place] [address] Dr. Candy Cervantes (RBC) [Entitic mass]31.3 lyJyqmsu27.7-34.0The [facility] CenterComment on above:Performed By: #### CBC #### [facility] [address] [place] [address] Dr. Candy Cervantes (RBC) [Mass/Vol]32.4 g/bDNwnunj73.9-35.2The [facility] CenterComment on above:Performed By: #### CBC #### [facility] [address] [place] [address] Dr. Candy Cervantes (RBC) [Entitic vol]96.6 jLHhqrhl78.0-99.0The [facility] CenterComment on above:Performed By: #### CBC #### [facility] [address] [place] [address] Dr. Candy Glass #0.8 103/ulNormal0.3-0.8The [facility] CenterComment on above:Performed By: #### CBC #### [facility] [address] [place] [address] Dr. Candy Linkocytes/100 WBC (Bld)8.3 %Normal1.7-12.0The [facility] Comment on above:Performed By: #### CBC #### [facility] [address] [place] [address] Dr. Candy Melendez #5.1 103/ulNormal1.4-6.5The [facility] CenterComment on above:Performed By: #### CBC #### [facility] [address] [place] [address] Dr. Candy Moctezumautrophils/100 WBC (Bld)54.0 %Fhclvi76.0-75.0The [facility] CenterComment on above:Performed By: #### CBC #### [facility] [address] [place] [address] Dr. Candy Abel mean volume (Bld) [Entitic vol]11.6 fLNormal9.5-13.5The [facility] CenterComment on above:Performed By: #### CBC #### [facility] [address] [place] [address] Dr. Candy TurpinT258 103/xlSwvhus355-578Evp [facility] CenterComment on above: Performed By: #### CBC #### [facility] [address] [place] [address] Dr. Candy CortezRBC4.09 106/ulCritically low4.20-5.40The [facility] CenterComment on above:Performed By: #### CBC #### [facility] [address] [place] [address] Dr. Candy CortezWBC9.4 103/ulNormal4.0-11.0The [facility] CenterComment on above: Performed By: #### CBC #### [facility] [address] [place] [address] Dr. Candy Castañeda T4on 40-89-8772Eepc T4 [Mass/Vol]0.91 ng/dLNormal0.76-1.46 The [facility] CenterCommckenzie memorial hospital on above:Performed By: #### TSH, URIC, CMP, LIPID #### [facility] [address] [place] [address] Dr. Candy Mitchell 40-47-9649Ehil [Mass/Vol]106.0 ug/pKYeefrj39.0-170.0The [facility] CenterComment on above:Performed By: #### TSH, URIC, CMP, LIPID #### [facility] [address] [place] [address] Dr. Candy CortezPROF 14(COMP METB)on 55-69-1204Kihopuh [Mass/Vol]3.7 g/dLNormal 3.4-5.0The [facility] CenterComment on above:Performed By: #### TSH, CMP #### [facility] [address] [address] [address] Candy CortezAlbumin/Globulin [Mass ratio]1.0 {ratio}NormalThe [facility] Centerment on above:Performed By: #### TSH, CMP #### [facility] [address] [address] [address] Candy Figueredo [Catalytic activity/Vol]84 U/JUcfrgj32-727Cup [facility] CenterComment on above:Performed By: #### TSH, CMP #### [facility] [address] [address] [address] Candy Yap [Catalytic activity/Vol]36 U/WYeinvt54-35Hch [facility] Centerment on above:Performed By: #### TSH, CMP #### [facility] [address] [address] [address] Candy Camaraon gap [Moles/Vol]11.6 mmol/LNormalThe [facility] Comment on above:Performed By: #### TSH, CMP #### [facility] [address] [address] [address] Candy Sparks [Catalytic activity/Vol]30 U/TGxjgin88-66Lkb [facility] on above:Performed By: #### TSH, CMP #### [facility] [address] [address] [address] Candy CortezBilirubin [Mass/Vol]0.4 mg/dLNormal0.2-1.0The [facility] Comment on above:Performed By: #### TSH, CMP #### [facility] [address] [address] [address] Candy CortezCalcium [Mass/Vol]9.4 mg/dLNormal8.5-10.1The [facility] Comment on above:Performed By: #### TSH, CMP #### [facility] [address] [address] [address] Candy CortezChloride [Moles/Vol]105 mmol/KVcwgzx44-801Oqf [facility] Comment on above:Performed By: #### TSH, CMP #### [facility] [address] [address] [address] Candy CortezCO2 [Moles/Vol]29.2 mmol/LUvjcdk40.0-32.0The [facility] Comment on above:Performed By: #### TSH, CMP #### [facility] [address] [address] [address] Candy CortezCreatinine [Mass/Vol]0.78 mg/dLNormal0.55-1.02N[facility]'S HospitalComment on above:Performed By: #### TSH, CMP #### [facility] [address] [place] [address] Dr. Candy VillagranGFR-AF ARGENTINE>60Normal>=60The [facility] CenterComment on above:Performed By: #### TSH, CMP #### [facility] [address] [address] [address] Candy King-NON AF ARGENTINE>60Normal>=60The [facility] CenterComment on above:Performed By: #### TSH, CMP #### [facility] [address] [address] [address] Candy CortezGlobulin (S) [Mass/Vol]3.8 g/dLNormalThe [facility] CenterComment on above:Performed By: #### TSH, CMP #### [facility] [address] [address] [address] Candy CortezGlucose [Mass/Vol]95 mg/pLEzbhpg07-112OzkNationwide Children'S Hospital Comment on above:Performed By: #### TSH, CMP #### [facility] [address] [address] [address] Candy CortezPotassium [Moles/Vol]4.8 mmol/LNormal3.5-5.1The [facility] Comment on above:Performed By: #### TSH, CMP #### [facility] [address] [address] [address] Candy CortezProtein [Mass/Vol]7.5 g/dLNormal6.4-8.2The [facility] Comment on above:Performed By: #### TSH, CMP #### [facility] [address] [address] [address] Candy Loeraum [Moles/Vol]141 mmol/KWimvzr321-544Xwr [facility] Comment on above:Performed By: #### TSH, CMP #### [facility] [address] [place] [address] Dr. Candy Miranda nitrogen [Mass/Vol]13.0 mg/dLNormal7.0-18.0The [facility] CenterComment on above:Performed By: #### TSH, CMP #### [facility] [address] [place] [address] Dr. Candy Miranda nitrogen/Creatinine [Mass ratio]16.7 mg/mgNoalThSt. Charles HospitalComment on above:Performed By: #### TSH, CMP #### [facility] [address] [place] [address] Dr. Candy Muñoz 13-58-2205IKI0.818 uIU/mLNormal0.358-3.740The [facility] CenterComment on above:Performed By: #### TSH, CMP #### [facility] [address] [place] [address] Dr. Candy Block RANDOM W/MICROSCOPICon 18-55-6165HGUGBADGKIGJ SEENNormalNONE SEENNationwide Children'S HospitalComment on above:Performed By: #### UAMIC #### [facility] [address] [place] [address] Dr. Candy Luciano Ql (U)NegativeNormalNEGATIVENationwide Children'S Hospital Comment on above:Performed By: #### UAMIC #### [facility] [address] [place] [address] Dr. Candy Anna SEENNormalNONE SEENNationwide Children'S HospitalComment on above:Performed By: #### UAMIC #### [facility] [address] [place] [address] Dr. Candy Meeksarity (U)CLEARNormalCLEARThe [facility] CenterComment on above: Performed By: #### UAMIC #### [facility] [address] [address] [address] Candy Mantilla (U)LT. YELLOWNormalYELLOWNationwide Children'S HospitalComment on above:Performed By: #### UAMIC #### [facility] [address] [address] [address] Candy CortezCrystals LM Nom (Urine sed)NONE SEENNormalNONE SEENNationwide Children'S HospitalComment on above:Performed By: #### UAMIC #### [facility] [address] [address] [address] Gupta ChangEpithelial cells LM Ql (Urine sed)RARENormalNONE SEEN /RARENationwide Children'S HospitalComment on above:Performed By: #### UAMIC #### [facility] [address] [address] [address] Candy CortezGlucose Ql (U)NegativeNormalNEGATIVENationwide Children'S HospitalComment on above:Performed By: #### UAMIC #### [facility] [address] [address] [address] Candy CortezHemoglobin Ql (U)NegativeNormalNEGATIVEZanesville City Hospital on above:Performed By: #### UAMIC #### [facility] [address] [address] [address] Candy CortezKetones Ql (U)NegativeNormalNEGATIVENationwide Children'S HospitalComment on above:Performed By: #### UAMIC #### [facility] [address] [address] [address] Candy CortezLEUKOCYTESNegativeNormalNEGATIVENationwide Children'S HospitalComment on above:Performed By: #### UAMIC #### [facility] [address] [address] [address] Candy CortezMUCOUSNONE SEENNormalNONE SEENNationwide Children'S HospitalComment on above:Performed By: #### UAMIC #### [facility] [address] [address] [address] Candy Toney Ql (U)NegativeNormalNEGATIVEThe [facility] CenterComment on above:Performed By: #### UAMIC #### [facility] [address] [place] [address] Dr. Candy CortezpH (U)7.0 [pH]Normal5-9The [facility] CenterComment on above: Performed By: #### UAMIC #### [facility] [address] [place] [address] Dr. Candy CortezIksecZAL6-9Osyjbd9-6Gxo [facility] CenterComment on above:Performed By: #### UAMIC #### [facility] [address] [place] [address] Dr. Candy CortezSPEC GRAVITY<=1.571Cdjcrbbm0.005-<=1.025The [facility] Comment on above:Performed By: #### UAMIC #### [facility] [address] [place] [address] Dr. Candy CortezUA PROTEINNegativeNormalNEGATIVE/ TRACEThe [facility] Comment on above:Performed By: #### UAMIC #### [facility] [address] [place] [address] Dr. Candy Hutchisonbilinogen Qn (U)0.2 {Nicko'U}/dLNormal0.2 - 1.0The [facility] CenterComment on above:Performed By: #### UAMIC #### [facility] [address] [place] [address] Dr. Candy CortezWBC0-2AbnormalNONE SEENThe [facility] CenterComment on above: Performed By: #### UAMIC #### [facility] [address] [place] [address] Dr. Candy CortezVITAMIN B12on 57-72-4753Jmaqcpkms (Vitamin B12) [Mass/Vol]201.0 pg/uMYwjnqa565.0-986.0The [facility] CenterComment on above:Performed By: #### TSH, URIC, CMP, LIPID #### [facility] [address] [place] [address] Dr. Candy CortezVITAMIN D 25 OHon 50-69-1964BRX D 25-OH14.6 ng/mLNormalNationwide Children'S HospitalComment on above:Performed By: #### TSH, URIC, CMP, LIPID #### [facility] [address] [address] [address] Candy BACONSEE [facility] CenterComment on above: Result Comment: <20 ng/mL Vit D deficient 20 - <30 ng/mL Vit D insufficient 30 - 100 ng/mL Vit D sufficient >100 ng/mL Potential ToxicityPerformed By: #### TSH, URIC, CMP, LIPID #### [facility] [address] [place] [address] Dr. Candy DavisID PROFILEon 91-84-7002KOLF-HDL RATIO NORMSEE [facility] CenterCommckenzie memorial hospital on above:Result Comment: 3.3 - 4.4 LOW RISK 4.4 - 7.1 AVERAGE RISK 7.1 - 11.0 MODERATE RISK >11.0 HIGH RISKPerformed By: #### TSH, URIC, CMP, LIPID #### [facility] [address] [place] [address] Dr. Candy Pedrozaesterol [Mass/Vol]162 mg/dLNormal<=200[facility] Comment on above:Performed By: #### TSH, URIC, CMP, LIPID #### [facility] [address] [address] [address] Candy CortezCholesterol in HDL [Mass/Vol]74 mg/dLCritically xlqb27-71AsdNationwide Children'S HospitalComment on above:Performed By: #### TSH, URIC, CMP, LIPID #### [facility] [address] [address] [address] Candy CortezCholesterol in LDL [Mass/Vol]54.8 mg/dLDayton VA Medical CenterCommckenzie memorial hospital on above:Performed By: #### TSH, URIC, CMP, LIPID #### [facility] [address] [place] [address] Dr. Candy Pedrozaestertaylor.total/Cholesterol in HDL [Mass ratio]2.2 {ratio} NormalThe Yves HospitalComment on above:Performed By: #### TSH, URIC, CMP, LIPID #### [facility] [address] [address] [address] Candy Rondon NORMAL> or = 60 mg/dl - LOW CARDIOVASCULAR RISK <40 mg/dl - HIGH CARDIOVASCULAR RISKCleveland Clinic on above:Performed By: #### TSH, URIC, CMP, LIPID #### [facility] [address] [address] [address] Candy Starks CALC NORMALSEE BELOWDayton VA Medical CenterCommckenzie memorial hospital on above:Result Comment: <100 mg/dl OPTIMAL 100 - 129 mg/dl NEAR OR ABOVE OPTIMAL 130 - 159 mg/dl BORDERLINE HIGH 160 - 189 mg/dl HIGH >190 mg/dl VERY HIGH Performed By: #### TSH, URIC, CMP, LIPID #### [facility] [address] [place] [address] Dr. Candy CortezTriglyceride [Mass/Vol]166 mg/dLCritically high<=150The [facility] on above:Performed By: #### TSH, URIC, CMP, LIPID #### [facility] [address] [address] [address] Candy RodriguezLDL CALC33.2 mg/dLCleveland Clinic on above: Performed By: #### TSH, URIC, CMP, LIPID #### [facility] [address] [address] [address] Candy Woodward 69-96-1399OBE [Catalytic activity/Vol]32 U/EOihizw87-65Vnl [facility] on above:Performed By: #### TSH, URIC, CMP, LIPID #### [facility] [address] [address] [address] Candy Musa 03-66-3066KOM [Catalytic activity/Vol]52 U/VThrjhm87-24Igg [facility] on above:Performed By: #### TSH, URIC, CMP, LIPID #### [facility] [address] [address] [address] Candy CortezLIPID PROFILEon 27-77-0674KXJX-HDL RATIO NORMSMemorial Health System Selby General HospitalComment on above:Result Comment: 3.3 - 4.4 LOW RISK 4.4 - 7.1 AVERAGE RISK 7.1 - 11.0 MODERATE RISK >11.0 HIGH RISKPerformed By: #### TSH, URIC, CMP, LIPID #### [facility] [address] [place] [address] Dr. Candy CortezCholesterol [Mass/Vol]178 mg/dLNormal<=200The [facility] Comment on above:Performed By: #### TSH, URIC, CMP, LIPID #### [facility] [address] [place] [address] Dr. Candy CortezCholesterol in HDL [Mass/Vol]80 mg/dLCritically enbo00-40CeiNationwide Children'S HospitalComment on above:Performed By: #### TSH, URIC, CMP, LIPID #### [facility] [address] [place] [address] Dr. Candy Pedrozaesterol in LDL [Mass/Vol]43.4 mg/dLDayton VA Medical CenterComment on above:Performed By: #### TSH, URIC, CMP, LIPID #### [facility] [address] [place] [address] Dr. Candy Chamorro.total/Cholesterol in HDL [Mass ratio]2.2 {ratio} NormalNationwide Children'S HospitalCommckenzie memorial hospital on above:Performed By: #### TSH, URIC, CMP, LIPID #### [facility] [address] [place] [address] Dr. Candy Rondon NORMAL> or = 60 mg/dl - LOW CARDIOVASCULAR RISK <40 mg/dl - HIGH CARDIOVASCULAR RISKDayton VA Medical CenterComment on above:Performed By: #### TSH, URIC, CMP, LIPID #### [facility] [address] [place] [address] Dr. Candy Starks CALC NORMALSEE [facility] CenterCommckenzie memorial hospital on above:Result Comment: <100 mg/dl OPTIMAL 100 - 129 mg/dl NEAR OR ABOVE OPTIMAL 130 - 159 mg/dl BORDERLINE HIGH 160 - 189 mg/dl HIGH >190 mg/dl VERY HIGH Performed By: #### TSH, URIC, CMP, LIPID #### [facility] [address] [place] [address] Dr. Candy CortezTriglyceride [Mass/Vol]273 mg/dLCritically high<=150The [facility] CenterComment on above:Performed By: #### TSH, URIC, CMP, LIPID #### [facility] [address] [place] [address] Dr. Candy CortezVLDL CALC54.6 mg/dLNormalThe [facility] CenterComment on above: Performed By: #### TSH, URIC, CMP, LIPID #### [facility] [address] [place] [address] Dr. Candy Campbell AUTO DIFFon 54-66-4162FKHQ #0.1 103/ulNormal0.0-0.1The [facility] CenterComment on above:Performed By: #### CBC #### [facility] [address] [place] [address] Dr. Candy CortezBasophils/100 WBC (Bld)1.2 %Normal0.2-2.0[facility] Comment on above:Performed By: #### CBC #### [facility] [address] [place] [address] Dr. Candy Kamara #0.2 103/ulNormal0.0-0.7The [facility] CenterComment on above: Performed By: #### CBC #### [facility] [address] [place] [address] Dr. Candy Villagranosinophils/100 WBC (Bld)2.8 %Normal0.9-7.0The [facility] Comment on above:Performed By: #### CBC #### [facility] [address] [place] [address] Dr. Candy Villagranrythrocyte distribution width (RBC) [Ratio]12.2 %Wfsryq93.0-15.0 The [facility] CenterComment on above:Performed By: #### CBC #### [facility] [address] [place] [address] Dr. Candy CortezHematocrit (Bld) [Volume fraction]41.0 %Uzdvqz99.0-48.0The [facility] CenterComment on above:Performed By: #### CBC #### [facility] [address] [place] [address] Dr. Candy Loooglobin (Bld) [Mass/Vol]13.6 g/dMYiqsny16.0-16.0The [facility] CenterComment on above:Performed By: #### CBC #### [facility] [address] [place] [address] Dr. Candy Martines #0.00 10e3/ulNormal0.00-0.03The [facility] CenterComment on above:Performed By: #### CBC #### [facility] [address] [place] [address] Dr. Candy CortezIG %0.0 %Normal0.0-0.5The [facility] CenterComment on above: Performed By: #### CBC #### [facility] [address] [place] [address] Dr. Candy Bragg #2.7 103/ulNormal1.2-3.8The [facility] CenterComment on above:Performed By: #### CBC #### [facility] [address] [place] [address] Dr. Candy Sunmphocytes/100 WBC (Bld)47.5 %Nwoyuq91.5-60.0The [facility] CenterComment on above:Performed By: #### CBC #### [facility] [address] [place] [address] Dr. Candy CortezMANUAL DIFF REQNONormalThe [facility] CenterComment on above: Performed By: #### CBC #### [facility] [address] [place] [address] Dr. Candy Black (RBC) [Entitic mass]32.5 boRgclpy36.7-34.0The [facility] CenterComment on above:Performed By: #### CBC #### [facility] [address] [place] [address] Dr. Candy Cervantes (RBC) [Mass/Vol]33.2 g/fDAbuwjl22.9-35.2The [facility] CenterComment on above:Performed By: #### CBC #### [facility] [address] [address] [address] Candy CervantesV (RBC) [Entitic vol]97.9 sSFwxzwf39.0-99.0The [facility] CenterComment on above:Performed By: #### CBC #### [facility] [address] [place] [address] Dr. Candy Glass #0.5 103/ulNormal0.3-0.8The [facility] CenterComment on above:Performed By: #### CBC #### [facility] [address] [place] [address] Dr. Candy Linkocytes/100 WBC (Bld)8.4 %Normal1.7-12.0The [facility] Comment on above:Performed By: #### CBC #### [facility] [address] [place] [address] Dr. Candy Melendez #2.3 103/ulNormal1.4-6.5The [facility] CenterComment on above:Performed By: #### CBC #### [facility] [address] [place] [address] Dr. Candy Moctezumautrophils/100 WBC (Bld)40.1 %Critically low43.0-75.0The [facility] CenterComment on above:Performed By: #### CBC #### [facility] [address] [place] [address] Dr. Candy Joyalet mean volume (Bld) [Entitic vol]11.5 fLNormal9.5-13.5The [facility] CenterComment on above:Performed By: #### CBC #### [facility] [address] [place] [address] Dr. Candy CortezPLT305 103/bwAzipzk068-947Wme [facility] CenterComment on above: Performed By: #### CBC #### [facility] [address] [place] [address] Dr. Candy CortezRBC4.19 106/ulCritically low4.20-5.40The [facility] CenterComment on above:Performed By: #### CBC #### [facility] [address] [place] [address] Dr. Candy CortezWBC5.7 103/ulNormal4.0-11.0The [facility] CenterComment on above: Performed By: #### CBC #### [facility] [address] [place] [address] Dr. Candy CortezFREE T4on [id number] T4 [Mass/Vol]0.78 ng/dLNormal0.76-1.46 The [facility] CenterComment on above:Performed By: #### TSH, URIC, CMP, LIPID #### [facility] [address] [place] [address] Dr. Candy DavisID PROFILEon [id number]-HDL RATIO NORMSEE BELOWNoMemorial Health System Marietta Memorial HospitalComment on above:Result Comment: 3.3 - 4.4 LOW RISK 4.4 - 7.1 AVERAGE RISK 7.1 - 11.0 MODERATE RISK >11.0 HIGH RISKPerformed By: #### TSH, URIC, CMP, LIPID #### [facility] [address] [place] [address] Dr. Candy CortezCholesterol [Mass/Vol]167 mg/dLNormal<=200The [facility] Comment on above:Performed By: #### TSH, URIC, CMP, LIPID #### [facility] [address] [place] [address] Dr. Candy Pedrozaesterol in HDL [Mass/Vol]64 mg/dLCritically jdpq65-43Swg [facility] CenterComment on above:Performed By: #### TSH, URIC, CMP, LIPID #### [facility] [address] [place] [address] Dr. Candy Pedrozaesterol in LDL [Mass/Vol]43.6 mg/dLDayton VA Medical CenterComment on above:Performed By: #### TSH, URIC, CMP, LIPID #### [facility] [address] [address] [address] Candy CortezCholesterol.total/Cholesterol in HDL [Mass ratio]2.6 {ratio} NormalEast [facility] City [facility] on above:Performed By: #### TSH, URIC, CMP, LIPID #### [facility] [address] [address] [address] Candy Rondon NORMAL> or = 60 mg/dl - LOW CARDIOVASCULAR RISK <40 mg/dl - HIGH CARDIOVASCULAR RISKCleveland Clinic on above:Performed By: #### TSH, URIC, CMP, LIPID #### [facility] [address] [address] [address] Candy CortezLDL CALC NORMALSEE BELOWDayton VA Medical CenterCommckenzie memorial hospital on above:Result Comment: <100 mg/dl OPTIMAL 100 - 129 mg/dl NEAR OR ABOVE OPTIMAL 130 - 159 mg/dl BORDERLINE HIGH 160 - 189 mg/dl HIGH >190 mg/dl VERY HIGH Performed By: #### TSH, URIC, CMP, LIPID #### [facility] [address] [address] [address] Candy CortezTriglyceride [Mass/Vol]297 mg/dLCritically high<=150The [facility] on above:Performed By: #### TSH, URIC, CMP, LIPID #### [facility] [address] [address] [address] Candy RodriguezLDL CALC59.4 mg/dLNoGerman Hospital on above: Performed By: #### TSH, URIC, CMP, LIPID #### [facility] [address] [address] [address] Candy CortezPROF 14(COMP METB)on 59-96-7813Wtojiim [Mass/Vol]3.6 g/dLNormal 3.4-5.0The [facility] on above:Performed By: #### TSH, URIC, CMP, LIPID #### [facility] [address] [address] [address] Candy CortezAlbumin/Globulin [Mass ratio]1.0 {ratio}NormalNationwide Children'S HospitalComment on above:Performed By: #### TSH, URIC, CMP, LIPID #### [facility] [address] [address] [address] Candy Figueredo [Catalytic activity/Vol]79 U/WJgmpkr18-307Pzx [facility] CenterComment on above:Performed By: #### TSH, URIC, CMP, LIPID #### [facility] [address] [place] [address] Dr. Candy Yap [Catalytic activity/Vol]23 U/OMiqzbb33-29Wuq [facility] CenterComment on above:Performed By: #### TSH, URIC, CMP, LIPID #### [facility] [address] [place] [address] Dr. Candy Borjas gap [Moles/Vol]9.7 mmol/LNormalThe [facility] CenterComment on above:Performed By: #### TSH, URIC, CMP, LIPID #### [facility] [address] [place] [address] Dr. Candy Sparks [Catalytic activity/Vol]20 U/UUdfdyk81-89Cxw [facility] CenterComment on above:Performed By: #### TSH, URIC, CMP, LIPID #### [facility] [address] [place] [address] Dr. Candy CortezBilirubin [Mass/Vol]0.4 mg/dLNormal0.2-1.0The [facility] Comment on above:Performed By: #### TSH, URIC, CMP, LIPID #### [facility] [address] [place] [address] Dr. Candy CortezCalcium [Mass/Vol]9.1 mg/dLNormal8.5-10.1[facility] Comment on above:Performed By: #### TSH, URIC, CMP, LIPID #### [facility] [address] [place] [address] Dr. Candy CortezChloride [Moles/Vol]103 mmol/UIzqonp81-521Lnp [facility] Comment on above:Performed By: #### TSH, URIC, CMP, LIPID #### [facility] [address] [address] [address] Candy CortezCO2 [Moles/Vol]29.0 mmol/BOqaqus63.0-32.0The [facility] Comment on above:Performed By: #### TSH, URIC, CMP, LIPID #### [facility] [address] [address] [address] Candy CortezCreatinine [Mass/Vol]0.72 mg/dLNormal0.55-1.02The [facility] CenterComment on above:Performed By: #### TSH, URIC, CMP, LIPID #### [facility] [address] [place] [address] Dr. Candy VillagranGFR-AF ARGENTINE>60Normal>=60The [facility] CenterComment on above:Performed By: #### TSH, URIC, CMP, LIPID #### [facility] [address] [place] [address] Dr. Candy VillagranGFR-NON AF ARGENTINE>60Normal>=60The [facility] CenterComment on above:Performed By: #### TSH, URIC, CMP, LIPID #### [facility] [address] [place] [address] Dr. Candy CortezGlobulin (S) [Mass/Vol]3.7 g/dLNormalThe [facility] CenterComment on above:Performed By: #### TSH, URIC, CMP, LIPID #### [facility] [address] [place] [address] Dr. Candy CortezGlucose [Mass/Vol]93 mg/sIIgdxtb97-194Vsb [facility] Comment on above:Performed By: #### TSH, URIC, CMP, LIPID #### [facility] [address] [place] [address] Dr. Candy oCrtezPotassium [Moles/Vol]4.7 mmol/LNormal3.5-5.1The [facility] Comment on above:Performed By: #### TSH, URIC, CMP, LIPID #### [facility] [address] [place] [address] Dr. Candy CortezProtein [Mass/Vol]7.3 g/dLNormal6.4-8.2The [facility] Comment on above:Performed By: #### TSH, URIC, CMP, LIPID #### [facility] [address] [address] [address] Candy Loeraum [Moles/Vol]137 mmol/RQhrdel496-460Itc [facility] Comment on above:Performed By: #### TSH, URIC, CMP, LIPID #### [facility] [address] [place] [address] Dr. Candy Miranda nitrogen [Mass/Vol]12.0 mg/dLNormal7.0-18.0The [facility] CenterComment on above:Performed By: #### TSH, URIC, CMP, LIPID #### [facility] [address] [place] [address] Dr. Candy Miranda nitrogen/Creatinine [Mass ratio]16.7 mg/mgNormalThe [facility] CenterComment on above:Performed By: #### TSH, URIC, CMP, LIPID #### [facility] [address] [place] [address] Dr. Candy Muñoz 56-67-0798FIZ7.748 uIU/mLNormal0.358-3.740The [facility] CenterComment on above:Performed By: #### TSH, URIC, CMP, LIPID #### [facility] [address] [place] [address] Dr. Candy Block RANDOM W/MICROSCOPICon 76-76-2022WFLEVSVQFDGH SEENNormalNONE SEENNationwide Children'S HospitalComment on above:Performed By: #### UAMIC #### [facility] [address] [place] [address] Dr. Candy Zhangirubin Ql (U)NegativeNormalNEGATIVENationwide Children'S Hospital Comment on above:Performed By: #### UAMIC #### [facility] [address] [place] [address] Dr. Candy CortezCASTNONE SEENNormalNONE SEENNationwide Children'S HospitalComment on above:Performed By: #### UAMIC #### [facility] [address] [place] [address] Dr. Candy Pathak (U)CLEARNormalCLEARNationwide Children'S HospitalComment on above: Performed By: #### UAMIC #### [facility] [address] [address] [address] Candy Mantilla (U)LT. YELLOWNormalYELLOWNationwide Children'S HospitalComment on above:Performed By: #### UAMIC #### [facility] [address] [address] [address] Candy CortezCrystals LM Nom (Urine sed)NONE SEENNormalNONE SEENNationwide Children'S HospitalComment on above:Performed By: #### UAMIC #### [facility] [address] [address] [address] Gupta ChangEpithelial cells LM Ql (Urine sed)RARENormalNONE SEEN /RARENationwide Children'S HospitalComment on above:Performed By: #### UAMIC #### [facility] [address] [place] [address] Dr. Candy CortezGlucose Ql (U)NegativeNormalNEGATIVENationwide Children'S HospitalComment on above:Performed By: #### UAMIC #### [facility] [address] [place] [address] Dr. Candy CortezHemoglobin Ql (U)NegativeNormalNEGATIVEZanesville City Hospital on above:Performed By: #### UAMIC #### [facility] [address] [place] [address] Dr. Candy CortezKetones Ql (U)NegativeNormalNEGATIVENationwide Children'S HospitalComment on above:Performed By: #### UAMIC #### [facility] [address] [address] [address] Candy CortezLEUKOCYTESNegativeNormalNEGATIVENationwide Children'S HospitalComment on above:Performed By: #### UAMIC #### [facility] [address] [place] [address] Dr. Candy CortezMUCOUSTRACEAbnormalNONE SEENNationwide Children'S HospitalComment on above:Performed By: #### UAMIC #### [facility] [address] [place] [address] Dr. Candy Cárdenastrblanka Ql (U)NegativeNormalNEGATIVEThe [facility] CenterComment on above:Performed By: #### UAMIC #### [facility] [address] [place] [address] Dr. Candy CortezpH (U)7.0 [pH]Normal5-9The [facility] CenterComment on above: Performed By: #### UAMIC #### [facility] [address] [place] [address] Dr. Candy CortezRBCNONE SEENAbnormal0-2The [facility] CenterComment on above: Performed By: #### UAMIC #### [facility] [address] [place] [address] Dr. Candy CortezSPEC GRAVITY1.296Kynksq8.005-<=1.025The [facility] CenterComment on above:Performed By: #### UAMIC #### [facility] [address] [place] [address] Dr. Candy Block PROTEINNegativeNormalNEGATIVE/ TRACEThe [facility] Comment on above:Performed By: #### UAMIC #### [facility] [address] [place] [address] Dr. Candy Hutchisonbilinogen Qn (U)0.2 {Nicko'U}/dLNormal0.2 - 1.0The [facility] CenterComment on above:Performed By: #### UAMIC #### [facility] [address] [place] [address] Dr. Candy CortezWBCNONE SEENNormalNONE SEENThe [facility] CenterComment on above: Performed By: #### UAMIC #### [facility] [address] [place] [address] Dr. Candy CortezURIC ACID SERUMon 78-66-9233Jwfkm [Mass/Vol]3.1 mg/dLNormal 2.6-6.0The [facility] CenterComment on above:Performed By: #### TSH, URIC, CMP, LIPID #### [facility] [address] [place] [address] Dr. Candy Cortez Vital Signs Date TimeVital SignValuePerforming YdnsbgoimPxqzhdlj89-13-1639 14:10-0400Body mjygyd626.56 cmLisa Aichholz SOFTWARE SALES EXECUTIVE-C Work Phone: [phone]10-01-2025 14:10-0400 Body mass index (BMI) [Ratio]23.5 kg/m2Lisa Aichholz SOFTWARE SALES EXECUTIVE-C Work Phone: [phone]10-01-2025 14:10-0400 Body mcyblraorjk67.1 [degF]Carmela Aichholz SOFTWARE SALES EXECUTIVE-C Work Phone: [phone] [place], [place] 7508010-01-2025 14:10-0400 Body .14 kgLisa Aichholz SOFTWARE SALES EXECUTIVE-C Work Phone: [phone] [place], [place] 7508010-01-2025 14:10-0400 Diastolic blood sfcoyhzi895 mm[Hg]Carmela Aichholz SOFTWARE SALES EXECUTIVE-C Work Phone: [phone]10-01-2025 14:10-0400 Heart rate78 /minLisa Aichholz SOFTWARE SALES EXECUTIVE-C Work Phone: [phone]10-01-2025 14:10-0400 Respiratory rate18 /minLisa Aichholz SOFTWARE SALES EXECUTIVE-C Work Phone: [phone] [place], [place] 3120610-01-2025 14:10-0400 SaO2% (BldA) [Mass fraction]99 %Carmela Aichholz SOFTWARE SALES EXECUTIVE-C Work Phone: [phone]10-01-2025 14:10-0400 Systolic blood mm[Hg]Carmela Aichholz SOFTWARE SALES EXECUTIVE-C Work Phone: [phone]07-01-2025 14:19-0400 Body mass index (BMI) [Ratio]24 kg/m2Lisa Aichholz SOFTWARE SALES EXECUTIVE Work Phone: [facility] HospitalAtvwnvolln16-89-8568 14:19-0400Body temperature 98.49 [degF]Carmela Lester SOFTWARE SALES EXECUTIVE Work Phone: [facility] HospitalIzwmqtgmse43-92-6194 14:19-0400Body .41 kgCarmela Lester SOFTWARE SALES EXECUTIVE Work Phone: [facility] HospitalGppahlwyug12-38-5403 14:19-0400Diastolic blood qxfxfrmo11 mm[Hg]Carmela Lester SOFTWARE SALES EXECUTIVE Work Phone: [facility] HospitalFbavhyvsrw23-08-1054 14:19-0400Heart rate78 /min Carmela Lester SOFTWARE SALES EXECUTIVE Work Phone: [facility] HospitalLkwznxbfty80-46-4587 14:19-0400Respiratory rate18 /minCarmela Lester SOFTWARE SALES EXECUTIVE Work Phone: [facility] HospitalUvlgtzkjnx62-78-7356 14:19-5773KpK0% (BldA) [Mass fraction]98 %Carmela Lester SOFTWARE SALES EXECUTIVE Work Phone: [facility] HospitalSbrroqbytj36-69-1059 14:19-0400Systolic blood sqppopox886 mm[Hg]Carmela Lester SOFTWARE SALES EXECUTIVE Work Phone: [facility] HospitalRfhymqirpq25-07-2226 15:21-0500Body aluurg598.6 cmNicole Saira DO Work Phone: [facility] HospitalTvvljvssyd06-20-2671 15:21-0500Body mass index (BMI) [Ratio]27.33 kg/a4Ammqzz Saira DO Work Phone: [facility] HospitalWjozqjtteu06-76-6777 15:21-0500Body pliulb20.21 kgNicole Saira DO Work Phone: [address] [address]Hsrnimoevo91-07-9593 15:21-0500Diastolic blood hnryitul55 mm[Hg]Den Saira DO Work Phone: [facility] HospitalArxhluegyw75-20-7620 15:21-0500Heart rate78 /min Den Saira DO Work Phone: [facility] HospitalHngikdiwnb86-74-3180 15:21-7747PlX3% (BldA) [Mass fraction]98 %Den Saira DO Work Phone: [facility] HospitalYzyccrpdwn08-50-7512 15:21-0500Systolic blood trgtuotw453 mm[Hg]Den Saira DO Work Phone: [facility] HospitalFgzjrmilhj74-84-6579 10:52-0500Body .56 cmLisa Aichholz Work Phone: [phone] [place], [place] 7508011-04-2024 10:52-0500 Body mass index (BMI) [Ratio]27 kg/m2Lisa Aichholz Work Phone: [phone] [place], [place] 7508011-04-2024 10:52-0500 Body ihdxxe37.44 kgLisa Aichholz Work Phone: [phone] [place], [place] 7508010-14-2024 10:03-0400 Body pdulix976.56 cmLisa Aichholz Work Phone: [phone] [place], [place] 7508010-14-2024 10:03-0400 Body mass index (BMI) [Ratio]26.9 kg/m2Lisa Aichholz Work Phone: [phone] [place], [place] 7508010-14-2024 10:03-0400 Body cgxine82.32 kgLisa Aichholz Work Phone: [phone] [place], [place] 7508009-19-2024 12:58-0400 Body piocfz453.56 cmLisa Aichholz Work Phone: [phone] [place], [place] 7508009-19-2024 12:58-0400 Body mass index (BMI) [Ratio]27 kg/m2Lisa Aichholz Work Phone: [phone] [place], [place] 7508009-19-2024 12:58-0400 Body tyzhrx90.38 kgLisa Aichholz Work Phone: [phone] [place], [place] 7508008-15-2024 13:18-0400 Body .76 kgLisa Aichholz Work Phone: [facility]07-25-2024 14:11-0400 Body yeatxp74.76 kgBrecksville [facility] Encounters Encounter DateEncounter TypeCare ProviderFacilityStart: 12-12-2024 End: 16-71-4646zlechjgswgUlnb J Aichholz SOFTWARE SALES EXECUTIVE-C Work Phone: [facility] Work Phone: Start: 12-12-2024 End: 90-10-7199Kukummh encounter procedureLisa Karlene Lester SOFTWARE SALES EXECUTIVE-C-[facility] Work Phone: Start: 10-17-2024 End: 83-53-4679NmnfbvVklq Aichholz SOFTWARE SALES EXECUTIVE Work Phone: noms CWM FMComment on above:Bilateral hand painStart: 10-16-2024 End: 05-35-2584XrfsxvVgzc Aichholz SOFTWARE SALES EXECUTIVE Work Phone: noms CWM FMComment on above:Bilateral hand pain (Primary Dx)Start: 10-10-2024 End: 70-43-7915Wfmwcvzbv Result EncounterLisa Popeholz SOFTWARE SALES EXECUTIVE Work Phone: noms External Department UnsolicitedStart: 10-10-2024 End: 55-41-1227Fkdpkhjyu Result EncounterLisa Popeholz SOFTWARE SALES EXECUTIVE Work Phone: noms External Department UnsolicitedStart: 09-11-2024 End: 63-28-0124Npzqzk outpatient visit 25 minutesLisa Rossz SOFTWARE SALES EXECUTIVE Work Phone: noms CWM FMComment on above:Primary hypertension (Primary Dx); 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 ; Hypothyroidism (acquired) ; Cigarette nicotine dependence without complication; Mixed hyperlipidemia ; Essential hypertension ; Trapezius muscle spasm; Bilateral hand pain; Breast cancer screening declinedStart: 09-11-2024 End: 88-88-4416Iasord flowsheetCarmela Rossz SOFTWARE SALES EXECUTIVE Work Phone: NOJW CWM FMStart: 09-11-2024 End: 32-31-6616Jouaen flowsheetLisa Aichholz SOFTWARE SALES EXECUTIVE Work Phone: noms CWM FMStart: 09-11-2024 End: 79-57-2414brsrtrbzapQQTC AICHHOLZNot AvailableStart: 09-07-2024 End: 34-71-8749Jaifanmnd Result EncounterLisa Aichholz SOFTWARE SALES EXECUTIVE Work Phone: noms External Department UnsolicitedStart: 09-07-2024 End: 25-76-8352Bukljznay Result EncounterLisa Aichholz SOFTWARE SALES EXECUTIVE Work Phone: noms External Department UnsolicitedStart: 08-20-2024 End: 42-09-1263RvdhekDegj Aichholz SOFTWARE SALES EXECUTIVE Work Phone: noms CWM FMComment on above:Essential hypertension (CMS/HCC); Primary hypertension (CMS/HCC); 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 (CMS/HCC); Hypothyroidism (acquired) (CMS/HCC)Start: 07-09-2024 End: 19-95-1823duyvwszflmXowpbpj Vytautas Giedraitis MDFacility:PM Yves Start: 06-04-2024 End: 18-40-4467dtezwiuxozCRZD TriHealthtart: 04-09-2024 End: 13-60-9927Sticgxm encounter procedureNicole Saira DO Work Phone: aNA SANDUSKYComment on above:Idiopathic peripheral neuropathyStart: 04-09-2024 End: 18-78-9738glhqdtzqgqKXQSYB DANNERNot AvailableStart: 04-09-2024 End: 67-53-7130Zvnvjv flowsheetNicole Saira DO Work Phone: aNA SANDUSKYStart: 04-09-2024 End: 62-92-1680Spgleb flowsheetNicole Saira DO Work Phone: aNA SANDUSKYStart: 03-31-2024 End: 23-17-1484Wflowbihv Result EncounterNicole Saira DO Work Phone: noms External Department UnsolicitedStart: 03-31-2024 End: 32-38-0837Mdxzsiixw Result EncounterNicole Saira DO Work Phone: noms External Department UnsolicitedStart: 03-26-2024 End: 24-38-2194Pjmsfc consultation new/estab patient 60 minNicole Saira DO Work Phone: aNA BELLEVUEComment on above:Idiopathic peripheral neuropathy (Primary Dx); Numbness and tingling; Arthralgia, unspecified jointStart: 03-26-2024 End: 47-94-4951muexthbttqKLOKDF DANNERNot AvailableStart: 03-26-2024 End: 16-30-7832Ihipnp flowsheetNicole Saira DO Work Phone: aNA BELLEVUEStart: 03-26-2024 End: 55-62-2414Sopezq flowsheetNicole Saira DO Work Phone: ana BELLEVUEStart: 03-13-2024 End: 24-40-7513EjauksFwml Aichholz SOFTWARE SALES EXECUTIVE Work Phone: NOMS CWM FMComment on above:Essential hypertension (CMS/HCC)Start: 03-02-2024 End: 55-29-8964nwhavprkpxDgsx N BialaskiFacility:[facility] Centertart: 02-29-2024 End: 10-30-0683CxsddxLovl Aichholz SOFTWARE SALES EXECUTIVE Work Phone: NOM[facility] CWM FMComment on above: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 (CM S/HCC)Start: 02-07-2024 End: 34-27-9784Bqtjnbmyr encounterLisa Lester SOFTWARE SALES EXECUTIVE Work Phone: NOMS CWM FMStart: 02-01-2024 End: 75-37-8978Skdqxyf encounter procedureCarmela Lester Work Phone: [facility] Work Phone: Start: 02-01-2024 End: 65-12-9414irfdzxbdnzTzwr J Aichholz Work Phone: [facility] Work Phone: Start: 01-16-2024 End: 08-98-7793Rsxaicy encounter procedureLisa Aichholz Work Phone: [facility] Work Phone: start: 01-13-2024 End: 14-96-2987Fbsmzjl encounter procedureLisa Aichholz Work Phone: [facility] [place] Work Phone: Start: 01-13-2024 End: 85-60-5090mmiyqlfcxgDuhn J Aichholz Work Phone: [facility] Work Phone: Start: 12-26-2023 End: 46-46-3505ysvesshonjHgbs J Aichholz Work Phone: [facility] Work Phone: Start: 12-26-2023 End: 05-58-3220Sptxlnm encounter procedureLisa Aichholz Work Phone: [facility] Work Phone: start: 12-12-2023 End: 27-77-2303qgmchobmfsTrashij Vytautas Giedraitis MDFacility:[facility] Start: 12-01-2023 End: 53-67-0277cegvlitwdtUejt J Aichholz Work Phone: [facility] Work Phone: Start: 12-01-2023 End: 53-53-6205Elfdguz encounter procedureLisa Aichholz Work Phone: [facility] Work Phone: start: 11-24-2023 End: 56-30-7315JxfyhwOrep Osielhholz SOFTWARE SALES EXECUTIVE Work Phone: [facility] FMComment on above: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 (CM S/HCC)Start: 11-22-2023 End: 09-97-4178PdpmnhHtjg Aichholz SOFTWARE SALES EXECUTIVE Work Phone: [facility] C[facility] FMComment on above: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 (CM S/HCC); Neuropathy; Essential hypertension (CMS/HCC); Hypothyroidism (acquired) (CMS/HCC); Primary hypertension (CMS/HCC); Trapezius muscle spasmStart: 11-21-2023 End: 91-30-0549ipxysmvarjFsmhhmn Vytautas Giedraitis MDFacility:[facility] [place] Start: 10-31-2023 End: 90-05-0421ibollqpinaYbvcziq Vytautas Giedraitis MDFacility:[facility] [place] Start: 10-27-2023 End: 22-47-1156zfreoezcdcSedj J Osielhinocencio Work Phone: [facility] Work Phone: Start: 10-27-2023 End: 79-38-2815Xxknwsa encounter procedureLisa Aichholz Work Phone: [facility] Work Phone: start: 10-27-2023 End: 36-96-0634Lhgqwmk encounter procedureLisa Aichholz Work Phone: [facility] Work Phone: Start: 10-27-2023 End: 25-03-2843kvcqpjykwhBakj J Aichholz Work Phone: [facility] Work Phone: Start: 10-06-2023 End: 59-48-1875jjjzwgqseuEanojtwwsOhioHealth Doctors Hospital Work Phone: Start: 10-06-2023 End: 30-98-0657Jcmcgdj encounter procedureAmerican [facility] Systems [facility] Work Phone: start: 09-29-2023 End: 17-40-4563lqkzekzmkcGMMWEDRMKNI HASSETTNot AvailableStart: 09-05-2023 End: 00-21-1348Lnyonvwlh Result EncounterLisa Aichholz SOFTWARE SALES EXECUTIVE Work Phone: noms External Department UnsolicitedStart: 09-05-2023 End: 51-60-4886Dzfkdmdck Result EncounterLisa Aichholz SOFTWARE SALES EXECUTIVE Work Phone: noms External Department UnsolicitedStart: 06-08-2023 End: 26-90-9799gpnzawevbeATRWTrumbull Regional Medical Centertart: 05-27-2023 End: 58-50-1606Owhupjmbw Result EncounterLisa Aichholz SOFTWARE SALES EXECUTIVE Work Phone: noms External Department UnsolicitedStart: 05-27-2023 End: 58-78-2691Gwpsabmdv Result EncounterLisa Aichholz SOFTWARE SALES EXECUTIVE Work Phone: noms External Department UnsolicitedStart: 07-22-2022 End: 40-97-7855hqlpnjewikQZM CARMELA AICHHOLZFacility:O8Ymvhy: 07-05-2022 End: 13-96-5479etcnnvrqgqFGI CARMELA AICHHOLZFacility:M9Ektud: 05-10-2022 End: 43-03-2150kjzrwtpeegQSV CARMELA AICHHOLZFacility:F4Lmxza: 01-22-2022 End: 54-82-9969nsvqwacjelGFJ CARMELA AICHHOLZFacility:H1 Procedures DateProcedureProcedure DetailPerforming ClinicianStart: 83-29-9654Ldonf hand 2 viewsLisa Aichholz SOFTWARE SALES EXECUTIVE Work Phone: Start: 76-98-4000Zfpaea cancer screening declined Breast cancer screening declinedLisa Aichholz SOFTWARE SALES EXECUTIVE Work Phone: Start: 59-09-1120BTQ CBC WITH AUTO DIFFLisa Aichholz SOFTWARE SALES EXECUTIVE Work Phone: Start: 04-09-2024 End: 78-69-5745Qulqwy emg ea extremty w/paraspinl area completeNicole Saira DO Work Phone: Start: 09-78-4835FLE FOLIC ACIDNicole Saira DO Work Phone: Start: 41-15-5291LLU of cervical spine without contrastLisa Aichholz Work Phone: Start: 21-25-0451G-ray of cervical spineLisa Aichholz Work Phone: Start: 10-97-5776Cbv spinal canal cervical w/o contrast matrlLisa Aichmorenaz SOFTWARE SALES EXECUTIVE Work Phone: Start: 11-56-5463DK ECHO DOPPLER COMPLETELisa Aichholz SOFTWARE SALES EXECUTIVE Work Phone: Breast cancer screening declinedBreast cancer screening declinedLisa Trevon SOFTWARE SALES EXECUTIVE-C Work Phone: Plan of Treatment DateCare ActivityDetailAuthorStart: 11-68-0011Liwwkfywb for malignant neoplasm of colonNOMS HealthcareStart: 12-12-2024 End: 96-91-3950Hqiecsl encounter xvxvoxcqf49/01/2025 2:00 PM EDT Office Visit [facility] [address] [place] [phone] Carmela Lester NP [address] [place] [phone] [facility] FMStart: 49-80-2149Ukrdrdgoi vaccinationNOMS HealthcareStart: 09-11-2024 End: 55-64-6374Hxltjnr encounter procedureNOMS CWM FMComment on above:ERICK (obstructive sleep apnea) (Primary Dx); 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 ; Primary hypertension ; Hypothyroidism (acquired) ; Cigarette nicotine dependence without complication; Mixed hyperlipidemiaStart: 09-11-2024 End: 06-78-5834QD Hand - bilateral 2 ViewsXR hand 1 or 2 views bilateral Imaging Routine Bilateral hand pain Expected: 09/11/2024 (Approximate), Expires: 09/11/2025[facility] Work Phone: Comment on above:Expected: 09/11/2024 (Approximate), Expires: 09/11/2025Start: 08-20-2024 End: 36-06-0762HKX W Auto Differential panel - BloodCBC and differential Lab Routine Coronary artery disease involving stebbins coronary artery of nativeheart without angina pectoris (CMS/HCC) Expected: 08/20/2024 (Approximate), Expires: 08/20/2025[facility] Work Phone: Comment on above:Expected: 08/20/2024 (Approximate), Expires: 08/20/2025Start: 08-20-2024 End: 07-06-1881Khtoamhgkwqzf metabolic 2000 panel - Serum or PlasmaComprehensive metabolic panel Lab Routine Essential hypertension (CMS/HCC) 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 (CMS/HCC) Expected: 08/20/2024 (Approximate), Expires: 08/20/2025[facility] HealthcareComment on above:Expected: 08/20/2024 (Approximate), Expires: 08/20/2025Start: 08-20-2024 End: 70-28-2344Kwbdr 1996 panel - Serum or PlasmaLipid panel Lab Routine 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 (CMS/HCC) Expected: 08/20/2024 (Approximate), Expires: 08/20/2025[facility] HealthcareComment on above:Expected: 08/20/2024 (Approximate), Expires: 08/20/2025Start: 08-20-2024 End: 59-89-3027Dgoniwxycbsq/Creatinine panel in random UrineMicroalbumin / creatinine, urine ratio Lab Routine Essential hypertension (CMS/HCC) Expected: 08/20/2024 (Approximate), Expires: 08/20/2025[facility] HealthcareComment on above: Expected: 08/20/2024 (Approximate), Expires: 08/20/2025Start: 08-20-2024 End: 62-83-1389Edsrwcvogtg [Units/volume] in Serum or PlasmaTSH Lab Routine Hypothyroidism (acquired) ([facility]) Expected: 08/20/2024 (Approximate), Expires: 08/20/2025[facility] HealthcareComment on above:Expected: 08/20/2024 (Approximate), Expires: 08/20/2025Start: 08-20-2024 End: 10-11-2053Wcpvbksyn (T4) free [Mass/volume] in Serum or PlasmaT4, free Lab Routine Hypothyroidism (acquired) ([facility]) Expected: 08/20/2024 (Approximate), Expires: 08/20/2025[facility] HealthcareComment on above:Expected: 08/20/2024 (Approximate), Expires: 08/20/2025Start: 08-20-2024 End: 36-38-0260Ddqfdywndn complete panel - UrineUrinalysis with reflex microscopic (clean catch) Lab Routine Essential hypertension ([facility]) Expected: 08/20/2024 (Approximate), Expires: 08/20/2025[facility] HealthcareComment on above: Expected: 08/20/2024 (Approximate), Expires: 08/20/2025Start: 05-23-2024 End: 66-03-4880Aqtekef encounter okltzkvdr32/12/2025 1:15 PM EDT Office Visit [facility] [address] [place] [phone] Den Chávez DO [address] [place] [address] GINA NAYELItart: 05-17-2024 End: 86-82-9962Fvsdhko encounter ialkitwjn44/06/2025 1:15 PM EST Office Visit [facility] [address] [place] [phone] Den Chávez DO [address] [place] [address] GINA TYLERtart: 04-09-2024 End: 14-41-8335Xkthpsz encounter procedureGINA BURGOSYComment on above:Arrived Start: 03-26-2024 End: 33-37-2389Cwgljyc encounter procedureNOMS SANCHEZ STATE ROUTEComment on above:ArrivedStart: 03-26-2024 End: 03-26-1942Mmsteyroc (Vitamin B12) [Mass/volume] in Serum or PlasmaVitamin B12 Lab Routine Idiopathic peripheral neuropathy Expected: 03/26/2024 (Approximate), Expires: 03/26/2025[facility] Work Phone: comment on above:Expected: 03/26/2024 (Approximate), Expires: 03/26/2025Start: 03-26-2024 End: 89-79-8566IIR 2 ExtremitiesEMG 2 Extremities Neurology Routine Idiopathic peripheral neuropathy Expected: 03/26/2024 (Approximate), Expires: 03/26/2025 [facility] HealthcareComment on above:Expected: 03/26/2024 (Approximate), Expires: 03/26/2025Start: 03-26-2024 End: 09-53-9461Cgyyvg [Mass/volume] in Serum or PlasmaFolate Lab Routine Idiopathic peripheral neuropathy Expected: 03/26/2024 (Approximate), Expires: 03/26/2025[facility] HealthcareComment on above:Expected: 03/26/2024 (Approximate), Expires: 03/26/2025Start: 03-26-2024 End: 44-29-3475Ddremcy Ab [Titer] in Serum by ImmunofluorescenceANA Lab Routine Idiopathic peripheral neuropathy Expected: 03/26/2024 (Approximate), Expires: 03/26/2025[facility] HealthcareComment on above:Expected: 03/26/2024 (Approximate), Expires: 03/26/2025Start: 03-26-2024 End: 14-99-5881GBR 9-10 NervesNVC 9-10 Nerves Neurology Routine Idiopathic peripheral neuropathy Expected: 03/26/2024 (Approximate), Expires: 03/26/2025 [facility] HealthcareComment on above:Expected: 03/26/2024 (Approximate), Expires: 03/26/2025Start: 03-26-2024 End: 63-47-1580Ywymlkt electrophoresis, serumProtein electrophoresis, serum Lab Routine Idiopathic peripheral neuropathy Expected: 03/26/2024 (Approximate), Expires: 03/26/2025[facility] HealthcareComment on above:Expected: 03/26/2024 (Approximate), Expires: 03/26/2025Start: 03-26-2024 End: 67-76-8164Pbcbpktchz factor [Units/volume] in Serum or PlasmaRheumatoid factor Lab Routine Idiopathic peripheral neuropathy Expected: 03/26/2024 (Approximate), Expires: 03/26/2025[facility] HealthcareComment on above:Expected: 03/26/2024 (Approximate), Expires: 03/26/2025Start: 03-20-2024 End: 02-17-6852Gefsmku encounter mwilhimfs91/07/2025 1:20 PM EST Office Visit [facility] [address] [place] [address] Carmela Lester, SOFTWARE SALES EXECUTIVE [address] [place] [address] [facility] FMStart: 82-88-4881Gpitjywty vaccinationInfluenza Vaccine (#1)[facility] HealthcareStart: 57-48-2158X-ray of cervical spineXR cerv spine AP/LAT/FLX/EXTUniversity Hospitals Geneva Medical Centertart: 35-54-2967MR Cervical spine 4 ViewsUniversity Hospitals Geneva Medical Centertart: 50-87-1497Iejzwzi referral [facility] Work Phone: Start: 86-95-0381Llwqkyiqc for malignant neoplasm of cervixHPV/CotestNOMS HealthcareStart: 59-90-0199Tbybnkmfd for malignant neoplasm of cervixPap SmearNOMS HealthcareStart: 86-94-8959Bgknptxbs for malignant neoplasm of colonNOMS HealthcareElectromyographyBrecksville Va / Crille HospitalMR Cervical spine WO [facility] HospitalPatient referralK[facility] Work Phone: XR Cervical spine 4 [facility] Immunizations Immunization DateImmunizationNotesCare PhfelumjElrdzapy28-97-9975ktvocgvqh, injectable, quadrivalent, preservative freeLisa Aichholz SOFTWARE SALES EXECUTIVE Work Phone: [facility] HospitalMgtwozytek02-19-7058Hulxpmpsoamc Conjugate PCV 20 Carmela Aichholz SOFTWARE SALES EXECUTIVE Work Phone: [facility] HospitalZobvunydxo46-58-8121fvzpqhikp virus vaccine, unspecified formulationLisa Aichholz SOFTWARE SALES EXECUTIVE Work Phone: [facility] HospitalZbfghduuao03-27-6634dvgpxdrll, injectable, quadrivalent, preservative freeLisa Aichholz SOFTWARE SALES EXECUTIVE Work Phone: [facility] HospitalWcimmsptat53-48-0476ntdfkowty, injectable, quadrivalent, preservative freeLisa Aichholz SOFTWARE SALES EXECUTIVE Work Phone: [facility] HospitalPntkpbdrhd52-24-3382vymhtobwi, injectable, quadrivalent, preservative freeLisa Aichholz SOFTWARE SALES EXECUTIVE Work Phone: [facility] HospitalYeogbzcfiw36-53-1522jwvanuiwv, injectable, quadrivalent, preservative freeLisa Aichholz SOFTWARE SALES EXECUTIVE Work Phone: [facility] HospitalIogeaypuyv26-82-3581mbpapqitdiib polysaccharide vaccine, 23 valentLisa Aichholz SOFTWARE SALES EXECUTIVE Work Phone: [facility] HospitalSietiifbpt59-57-5741yujeyzeiu, injectable, quadrivalent, preservative freeLisa Aichholz SOFTWARE SALES EXECUTIVE Work Phone: [facility] Payers DatePayer CategoryPayerPolicy [id number] Health InsuranceMEDICAL MUTUAL Member Subscriber Plan / Payer (Effective 2022- Present) Name: Diane Mendoza Relation to Subscriber: Spouse Name: JOSE MARIA MENDOZA Date of : 1960 Address: [address] [place] [address] Payer ID: Not on file Gr p ID: [id number] Type: Not on file Address: [address] [place] [id number] 1.2.840.668527.1.13.693.2.7.3.584[id number] 2.840.1.787248.3.57[id number] 2.840.1.483501.3.57[id number] 2.840.1.205220.3.57[id number] 2.840.1.369143.3.57[id number] 2.840.1.839737.3.57[id number] 2.840.1.650400.3.57[id number] 2.840.1.668167.3.579.[id number] 2.840.1.208745.3.57[id number] 2.840.1.408350.3.57[id number] 2.840.1.264553.3.57[id number] 2.16.840.1.231008.3.57[id number] 2..840.1.973408.3.579.[id number] 2.16.840.1.4[id number] 2.840.1.974381.3.579.2.531 [id number] 2.16.840.1.0[id number] 2.840.1.809320.3.579.2.531 Social History DateTypeDetailFacilityTobacco smoking status NHISUnknown if ever smokedKettering Health [facility] Work Phone: Start: 40-76-0258Szx Assigned At BirthFemalClermont County HospitalTobacco smoking status NHISUnknown if ever smoked [facility] Work Phone: Start: 16-95-2000RykBnrkvwk sex unknown (finding) [facility] Centertart: 85-60-9142Pvaleob smoking status NHIS Smokes tobacco dailyNOMS HealthcareHistory of tobacco useCigarette SmokerNOMS HealthcareStart: 02-07-2023 End: 09-18-1192Djvbddlebe smoked current (pack per day) - Zicxgjyt9NBVW HealthcareStart: 07-11-2023 End: 98-05-9147Snjwxwjzd beverage intakeLifetime non-drinker (finding)[facility] HealthcareStart: 05-10-2023 End: 34-28-6696Tjpmlwb use panelNOMS HealthcareStart: 43-10-3896Teo assigned at birthNot on fileNOMS HealthcareStart: 16-08-0510Lipsqca smoking status NHIS Ex-smokerNOMS HealthcareHistory of tobacco useCurrent smokerN[facility]S Healthcare Start: 70-90-3733Vrfagph use and exposureSmokeless tobacco non-userNOMS HealthcareSexFemale (finding)[facility] Centertart: 05-26-2022 SexFeBoston [facility] Functional Status JfrgBaagdrnmdnFbbblcAzlidgix46-02-0894Cxbdgmd Health Questionnaire 2 item (PHQ- 2) [Reported][facility] Clinical Notes 06-08-2023 to 09-11-2024 Note Date & OmmzWkhpXrqcirtn99-82-6636 History of Present illness Narrative* Carmela Lester [...] that manages your ERICK: documented in this [facility]07-01-2025 Instructions* Patient Instructions* Carmela Lester NP - 09/11/2024 2:20 PM EDT Check xrays of the hands Add baby aspirin 81mg daily documented in this [facility]06-09-2025 Telephone encounter Note* Telephone Encounter [...] order please getting this completed CICI [place] [facility] HospitalZhscwmyptb51-33-7358 Miscellaneous Notes* Telephone Encounter - Carmela Lester [...] this completed CICI [place] documented in this encounterColumbia Regional HospitalQzgjbufoym53-84-2099 [facility] Chief Complaint: [...] management; add calc (more content not included)... [facility]01-27-2025 History of Present illness Narrative* Walker Nicole, ARRT - 04/09/2024 4:00 PM EST Images from the original note were not included. Reason for Appointment: EMG Patient: Diane Mendoza : 1970 EMG Computer: [employer] Referring Physician: Dr. Den Chávez EMG: BLE machine hamper maker: Walker Nicole RT(R) Office Location: [place] Reason for EMG: c/o numbness/tingling in bilateral feet/lower legs, low back pain that radiates down bilateral legs L>R. Hx of surgery to left ankle. No hx of DM. Taking ASA. Comments: Procedure was explained to the patient who expressed understanding. Patient appeared to have tolerated the test well despite some discomfort due to the nature of the test. documented in this encounterColumbia Regional HospitalWzvyckvtkw12-43-3054 History of Present illness Narrative* Den Chávez DO - 03/26/2024 4:00 PM EST Images from the original note were not included. Chief Complaint Patient presents with Numbness Tingling Subjective Diane Mendoza, 54 y.o., female HPI Paresthesia of skin - EMG @ [facility] as well as our office, MRI brain [...] symptoms. She had EMG here and at [facility]. Borderline right CTS. She had the EMG 2020 BLE She is on the neurontin 900mb bid Past Medical History: Diagnosis Date Abnormal ankle brachial index (LYSSA) 05/10/2023 Asymptomatic microscopic hematuria 05/10/2023 Back pain, chronic 05/10/2023 Bilateral hand pain 05/10/2023 Bronchitis 02/07/2023 CAD (coronary artery disease) ([facility]) 05/10/2023 Closed traumatic minimally displaced fracture of proximal end of fibula with routine healing 05/10/2023 Fatigue GERD (gastroesophageal reflux disease) 05/10/2023 Gout 05/09/2023 History of irregular menstrual cycles Hyperlipidemia ([facility]) Joint pain Left ankle pain Loud snoring 05/10/2023 Lumbosacral radiculopathy at S1 05/10/2023 Menorrhagia 05/10/2023 Myocardial infarction ([facility]) 05/10/2023 Neuropathy 05/10/2023 Paresthesia of foot Peripheral artery disease ([facility]) 05/10/2023 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[facility]) 05/10/2023 Seasonal allergies 05/10/2023 Tobacco user [...] upper extremity in September most recently at [facility] that was not entirely convincing for any [...] to clinic: 3 weeks documented in this [facility]11-26-2024 Telephone encounter Note* Telephone Encounter - Carmela Lester NP - 02/07/2024 8:35 PM EST Please call and schedule a fu appt for pt [place] [facility] HospitalXlfawojrej32-94-9386 Miscellaneous Notes* Telephone Encounter - Carmela Lester NP - 02/07/2024 8:35 PM EST Please call and schedule a fu appt for pt [place] documented in this [facility]09-19-2024 Evaluation note* Diagnosis Onset Date Resolution Status Admit Date Arm pain acuteSeptember 2023 12:52pmCervical radiculopathyacuteSept2023 12:52pmNeck painacuteSeptember 2023 12:52pmCervical radiculopathyacute December 26, 2023 9:58amUlnar neuropathy at elbowacuteNov2023 10:50am [facility] Work Phone: 1(957) 680-270403-27-2024 [facility] Chief Complaint: New [...] he is to underg (more content not included)...[facility] Evaluation noteNo assessment information availableKettering Health [facility] Work Phone: Evaluation note* Diagnosis Onset Date Resolution Status Arm pain acuteCervical radiculopathyacuteUlnar neuropathy at elbowacuteArm painacuteNeck painacuteUlnar neuropathy at elbowacute [facility] Work Phone: Evaluation note* Diagnosis Onset Date Resolution Status Arm pain acuteCervical radiculopathyacuteUlnar neuropathy at elbowacuteArm painacuteNeck painacuteUlnar neuropathy at elbowacuteArm painacuteCervical radiculopathyacute Neck painacuteCervical radiculopathyacute [facility] Work Phone: Evaluation note* Diagnosis Onset Date Resolution Status Arm pain acuteNeck painacuteUlnar neuropathy at elbowacuteArm painacuteCervical radiculopathyacuteNeck painacuteCervical radiculopathyacute [facility] Work Phone: Evaluation note* Diagnosis 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 (CMS/HCC) documented in this encounter [facility] HealthcareEvaluation note* Diagnosis Colon cancer screening- Primary Special screening for malignant neoplasms, colon Atherosclerosis of stebbins coronary artery without angina pectoris, unspecified whether stebbins or transplanted heart (CMS/HCC) Essential hypertension (CMS/HCC) Unspecified essential hypertension Hypothyroidism (acquired) (CMS/HCC) Unspecified hypothyroidism Idiopathic gout, unspecified chronicity, unspecified site Bronchitis Bronchitis, not specified as acute or chronic Essential hypertension (CMS/HCC)- Primary Unspecified essential hypertension 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 (CMS/HCC) Trapezius muscle spasm Tobacco user Tobacco use disorder Essential hypertension (CMS/HCC)- Primary Unspecified essential hypertension 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 (CMS/HCC) Trapezius muscle spasm Tobacco user Tobacco use disorder Cervical neck pain with evidence of disc disease- Primary Other and unspecified disc disorder of cervical region Trapezius muscle spasm Tobacco user Tobacco use disorder Cervical stenosis of spinal canal- Primary Spinal stenosis in cervical region Cervical radiculopathy Brachial neuritis or radiculitis nos 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 (CMS/HCC) documented in this encounter [facility] HealthcareEvaluation [facility]* Diagnosis 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 (CMS/HCC) Neuropathy Mononeuritis of unspecified site Essential hypertension (CMS/HCC) Unspecified essential hypertension Hypothyroidism (acquired) (CMS/HCC) Unspecified hypothyroidism Primary hypertension (CMS/HCC) Unspecified essential hypertension Trapezius muscle spasm documented in this encounter [facility] HealthcareEvaluation [facility]* Diagnosis Colon cancer screening- Primary Special screening for malignant neoplasms, colon Atherosclerosis of stebbins coronary artery without angina pectoris, unspecified whether stebbins or transplanted heart (CMS/HCC) Essential hypertension (CMS/HCC) Unspecified essential hypertension Hypothyroidism (acquired) (CMS/HCC) Unspecified hypothyroidism Idiopathic gout, unspecified chronicity, unspecified site Bronchitis Bronchitis, not specified as acute or chronic Essential hypertension (CMS/HCC)- Primary Unspecified essential hypertension 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 (CMS/HCC) Trapezius muscle spasm Tobacco user Tobacco use disorder Essential hypertension (CMS/HCC)- Primary Unspecified essential hypertension 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 (CMS/HCC) Trapezius muscle [...] screening for malignant neoplasms, colon Atherosclerosis of stebbins coronary artery without angina pectoris, unspecified whether stebbins or transplanted heart (CMS/HCC) Essential hypertension (CMS/HCC) Unspecified essential hypertension Hypothyroidism (acquired) (CMS/[facility]) Unspecified hypothyroidism Idiopathic gout, unspecified chronicity, unspecified site Bronchitis Bronchitis, not specified as acute or chronic Essential hypertension (CMS/HCC)- Primary Unspecified essential hypertension 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 (CMS/HCC) Trapezius muscle spasm Tobacco user Tobacco use disorder Essential hypertension (CMS/HCC)- Primary Unspecified essential hypertension 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 (CMS/HCC) Trapezius muscle [...] screening for malignant neoplasms, colon Atherosclerosis of stebbins coronary artery without angina pectoris, unspecified whether stebbins or transplanted heart (CMS/HCC) Essential hypertension (CMS/HCC) Unspecified essential hypertension Hypothyroidism (acquired) ([facility]) Unspecified hypothyroidism Idiopathic gout, unspecified chronicity, unspecified site Bronchitis Bronchitis, not specified as acute or chronic Essential hypertension (CMS/HCC)- Primary Unspecified essential hypertension 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 (CMS/HCC) Trapezius muscle spasm Tobacco user Tobacco use disorder Essential hypertension (CMS/HCC)- Primary Unspecified essential hypertension 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 (CMS/HCC) Trapezius muscle [...] screening for malignant neoplasms, colon Atherosclerosis of st[place] coronary artery without angina pectoris, unspecified whether stebbins or transplanted heart (CMS/HCC) Essential hypertension (CMS/HCC) Unspecified essential hypertension Hypothyroidism (acquired) (CMS/HCC) Unspecified hypothyroidism Idiopathic gout, unspecified chronicity, unspecified site Bronchitis Bronchitis, not specified as acute or chronic Essential hypertension (CMS/HCC)- Primary Unspecified essential hypertension 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 (CMS/HCC) Trapezius muscle spasm Tobacco user Tobacco use disorder Essential hypertension (CMS/HCC)- Primary Unspecified essential hypertension 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 (CMS/HCC) Trapezius muscle [...] Unspecified essential hypertension 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 (CMS/HCC) Hypothyroidism (acquired) ([facility]) Unspecified hypothyroidism [facility] Diagnosis Colon cancer screening- Primary Special screening for malignant neoplasms, colon Atherosclerosis of stebbins coronary artery without angina pectoris, unspecified whether stebbins or transplanted heart Essential hypertension Unspecified essential hypertension Hypothyroidism (acquired) Unspecified hypothyroidism Idiopathic gout, unspecified chronicity, unspecified site Bronchitis Bronchitis, not specified as acute or chronic Essential hypertension- Primary Unspecified essential hypertension 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 Trapezius muscle spasm Tobacco user Tobacco use disorder Essential hypertension- Primary Unspecified essential hypertension 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 Trapezius muscle spasm [...] Unspecified essential hypertension 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 Hypothyroidism (acquired) Unspecified hypothyroidism Cigarette nicotine dependence without complication Mixed hyperlipidemia Mixed hyperlipidemia Essential hypertension Unspecified essential hypertension Trapezius muscle spasm Bilateral hand pain Breast cancer screening declined documented [facility] this [facility]* Diagnosis Colon cancer screening- Primary Special screening for malignant neoplasms, colon Atherosclerosis of st[place] coronary artery without angina pectoris, unspecified whether stebbins or transplanted heart Essential hypertension Unspecified essential hypertension Hypothyroidism (acquired) Unspecified hypothyroidism Idiopathic gout, unspecified chronicity, unspecified site Bronchitis Bronchitis, not specified as acute or chronic Essential hypertension- Primary Unspecified essential hypertension 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 Trapezius muscle spasm Tobacco user Tobacco use disorder Essential hypertension- Primary Unspecified essential hypertension 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 Trapezius muscle spasm [...] Unspecified essential hypertension 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 Hypothyroidism (acquired) Unspecified hypothyroidism Cigarette nicotine dependence without complication Mixed hyperlipidemia Mixed hyperlipidemia Essential hypertension Unspecified essential hypertension Trapezius muscle spasm Bilateral hand pain Breast cancer screening declined Bilateral hand pain- Primary documented [facility]* Diagnosis Colon cancer screening- Primary Special screening for malignant neoplasms, colon Atherosclerosis of stebbins coronary artery without angina pectoris, unspecified whether stebbins or transplanted heart Essential hypertension Unspecified essential hypertension Hypothyroidism (acquired) Unspecified hypothyroidism Idiopathic gout, unspecified chronicity, unspecified site Bronchitis Bronchitis, not specified as acute or chronic Essential hypertension- Primary Unspecified essential hypertension 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 Trapezius muscle spasm Tobacco user Tobacco use disorder Essential hypertension- Primary Unspecified essential hypertension 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 Trapezius muscle spasm [...] Unspecified essential hypertension 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 Hypothyroidism (acquired) Unspecified [...] 2024 1:48pmHypothyroidism (acquired)acute December 12, 2024 1:48pm [facility] Work Phone: Hospital Discharge instructionsAmbulatory Orders* Referral to Pain Management Location: None Selected [facility] Work Phone: Reason for referral (narrative)No reason for referral information availableKet[facility]: Summary Purpose Family History No [...] section and content) DATE CREATED AUTHOR 07/25/2022 [facility] DATE CREATED AUTHOR AUTHOR'S ORGANIZ ATION 03/06/2024 [facility] DATE CREATED AUTHOR AUTHOR'S ORGANIZ ATION 06/05/2024 [facility] DATE CREATED AUTHOR AUTHOR'S ORGANIZ ATION 07/22/2024 [facility] DATE CREATED AUTHOR AUTHOR'S ORGANIZ ATION 09/13/2024 [facility] EPIC Care Teams [...] Parviz Stewart MD [address] [place] [id number] PCP - GeneralFamily Medicine05/10/23 Carmela Lester NP [address] [place] [address] Referring PhysicianNurse Practitioner10/04/22 Carmela Lester NP [address] [place] [address] Nurse PractitionerSaint [facility] Medicine05/10/23Team MemberRelationshipSpecialtyStart DateEnd Date Parviz Stewart MD [address] [place] [address] PCP - [facility]Saint [facility] Medicine05/10/23 Carmela Lester NP [address] [place] [address] Referring PhysicianNurse Practitioner10/04/22 Carmela Lester NP [address] [place] [address] Nurse PractitionerSaint [facility] Medicine05/10/23Team MemberRelationshipSpecialtyStart DateEnd Date Parviz Stewart MD [address] [place] [address] PCP - [facility] Medicine05/10/23 Carmela Lester NP [address] [place] [address] Referring PhysicianNurse Practitioner10/04/22 Carmela Lester NP [address] [place] [address] Nurse PractitionerSaint [facility] Medicine05/10/23Team MemberRelationshipSpecialtyStart DateEnd Date Parviz Stewart MD [address] [place] [address] PCP - [facility]Saint [facility] Medicine05/10/23 Carmela Lester NP [address] [place] [address] Referring PhysicianNurse Practitioner10/04/22 Carmela Lester NP [address] [place] [address] Nurse PractitionerSaint [facility] Medicine05/10/23Team MemberRelationshipSpecialtyStart DateEnd Date Parviz Stewart MD [address] [place] [address] PCP - [facility] Medicine05/10/23 Carmela Lester NP [address] [place] [address] Referring PhysicianNurse Practitioner10/04/22 Carmela Lester NP [address] [place] [address] Nurse PractitionerSaint [facility] Medicine05/10/23Team MemberRelationshipSpecialtyStart DateEnd Date Parviz Stewart MD [address] [place] [address] PCP - [facility]Saint [facility]05/10/23 Carmela Lester NP [address] [place] [address] Referring PhysicianNurse Practitioner10/04/22 Carmela Lester NP [address] [place] [address] Nurse PractitionerFamily Medicine05/10/23Team MemberRelationshipSpecialtyStart DateEnd Date Parviz Stewart MD [address] [place] [address] PCP - GeneralFamily Medicine05/10/23 Carmela Lester, EMMANUEL [address] [place] [address] Referring PhysicianNurse Practitioner10/04/22 Carmela Lester NP [address] [place] [address] Nurse PractitionerFamily Medicine05/10/23 Den Chávez DO [address] [place] [address] Referring PhysicianNeurology1 Jessica Venegas NP [address] [place], [place] Nurse PractitionerNeurology1Team MemberRelationshipSpecialtyStart DateEnd Date Parviz Stewart MD [address] [place] [address] PCP - GeneralFamily Medicine05/10/23 Carmela Lester NP [address] [place] [address] Referring PhysicianNurse Practitioner10/04/22 Carmela Lester, EMMANUEL [address] [place] [address] Nurse PractitionerFamily Medicine05/10/23 Den Chávez DO [address] [place] [address] Referring PhysicianNeurolog03/27/24 Jessica Venegas NP [address] [place] Nurse PractitionerNeurology1Team MemberRelationshipSpecialtyStart DateEnd Date Parviz Stewart MD [address] [place] [address] PCP - GeneralFamily Medicine05/10/23 Carmela Lester NP [address] [place] [address] Referring PhysicianNurse Practitioner10/04/22 Carmela Lester NP [address] [place] [address] Nurse PractitionerFamily Medicine05/10/23 Den Chávez DO [address] [place] [address] Referring PhysicianNeurolog03/27/24 Jessica Venegas NP [address] [place] [address] Nurse PractitionerNeurolog03/27/24Team MemberRelationshipSpecialtyStart DateEnd Date Parviz Stewart MD [address] [place] [address] PCP - GeneralFamily Medicine05/10/23 Carmela Lester NP [address] [place] [address] Referring PhysicianNurse Practitioner10/04/22 Carmela Lester NP [address] [place] [address] Nurse PractitionerFamily Medicine05/10/23 Den Chávez DO [address] [place] [address] Referring PhysicianNeurolog03/27/24 Jessica Venegas NP [address] [place] [address] Nurse PractitionerNeurology1Team MemberRelationshipSpecialtyStart DateEnd Date Parviz Stewart MD [address] [place] [address] PCP - [facility]Saint [facility] Medicine05/10/23 Carmela Lester NP [address] [place] [address] Referring PhysicianNurse Practitioner10/04/22 Carmela Lester NP [address] [place] [address] Nurse PractitionerFaarly Medicine05/10/23 Den Chávez DO [address] [place] [address] Referring PhysicianNeurolog03/27/24 Jessica Venegas NP [address] [place] [address] Nurse PractitionerNeurology1Team MemberRelationshipSpecialtyStart DateEnd Date Parviz Stewart MD [address] [place] [address] PCP - [facility]05/10/23 Carmela Lester NP [address] [place] [address] Referring PhysicianNNorthwest Medical Center10/04/22 Carmela Lester NP [address] [place] [address] [facility]05/10/23 Den Chávez DO [address] [place] [address] Referring PhysicianNeurolog03/27/24 Jessica Venegas NP [address] [place] [address] Nurse PractitionerNeurolog03/27/24Team MemberRelationshipSpecialtyStart DateEnd Date Parviz Stewart MD [address] [place] [address] PCP - [facility]05/10/23 Carmela Lester NP [address] [place] [address] Referring PhysicianNurse Practitioner10/04/22 Carmela Lester NP [address] [place] [address] Nurse PractitionerFamily Medicine05/10/23 Den Chávez DO [address] [place] [address] Referring PhysicianNeurolog03/27/24 Jessica Venegas NP [address] [place] [address] Nurse PractitionerNeurolog03/27/24Team MemberRelationshipSpecialtyStart DateEnd Date Parviz Stewart MD [address] [place] [address] PCP - [facility]05/10/23 Carmela Lester NP [address] [place] [address] Referring PhysicianNurse Practitioner10/04/22 Carmela Lester NP [address] [place] [address] Nurse PractitionerFamily Medicine05/10/23 Den Chávez DO [address] [place] [address] Referring PhysicianNeurolog03/27/24 Jessica Venegas NP [address] [place] [address] Nurse PractitionerNeurologTeam MemberRelationshipSpecialtyStart DateEnd Date Parviz Stewart MD [address] [place] [address] PCP - [facility] Medicine05/10/23 Carmela Lester NP [address] [place] [address] Referring PhysicianNurse Practitioner10/04/22 Carmela Lester NP [address] [place] [address] Nurse Pract[facility]erP[facility]05/10/23 Den Chávez DO [address] [place] [address] Referring PhysicianNeurolog03/27/24 Jessica Venegas NP [address] [place] [address] Nurse PractitionerNeurolog03/27/24 Team Status: Active Member Role Status Dates Carmela Lester NP-C Primary Care Provider Active Team Status: Inactive Member Role Status Dates Carmela Lester NP-C Primary Care Provider Active Start: December 12, 2024 End: December 12, 2024Carmela Lester NP-CAttending ProviderActiveStart: December 12, 2024 End: December 12, 2024Team MemberRelationshipSpecialtyStart DateEnd Date Parviz Stewart MD PCP - [facility]05/10/23 Carmela Lester NP Referring PhysicianNurse Practitioner10/04/22 Carmela Lester NP Nurse PractitionerFa[facility] Medicine05/10/23 eDn Chávez DO [address] [place] [address] Referring PhysicianNeurolog03/27/24 Jessica Venegas NP [address] [place] [address] Nurse PractitionerNeurolog03/27/24Team MemberRelationshipSpecialtyStart DateEnd Date Parviz Stewart MD PCP - [facility]05/10/23 Carmela Lester NP Referring PhysicianNurse Practitioner10/04/22 Carmela Lester NP Nurse PractitionerSaint [facility] Medicine05/10/23 Den Chávez DO [address] [place] [address] Referring PhysicianNeurolog03/27/24 Jessica Venegas NP [address] [place] [address] Nurse PractitionerNeurolog03/27/24 Goals (unrecognized section and content) [...] Contact Neurology Diagnoses Paresthesia of skin Procedures AL OFFICE/OUTPATIENT NEW LOW [facility] Milton Appiah MD Phone: tel: fax: Addy Lynn MD [address] [place] [address] Phone: tel: fax: Referral IDStatusReasonStart DateExpiration DateVisits RequestedVisits [id number] Consult and Treat /[id number]fd FOR RECORDS PERTAINING TO PATIENTS WHO ARE [...] BE BASED ON THE PRIMARY CLINICAL RECORDS. [employer] provides no warranty or guarantee of the accuracy or completeness of information in this document.
--- OUTSIDE RECORDS SUMMARY | 2025-02-02 09:44 | XMS_ITS | Clinical Summary ---
Author Organization [employer] tem Address [facility] [id number] [address] [place] [address] Care Team Providers Care Supervisor [employer] Name Role Phone OsieljaneinocencioCarmela Karlene CASTELLONN-ALUMINUM POOL INSTALLER Primary Care Provider Social History Tobacco UseTypesPacks/DayYears UsedDateSmoking Tobacco: Never AssessedChildcare AnswerDate YxazhadkOpqsvzvtkBhvlquq31/10/2019EmploymentAnswerDate Recorded LrokjjprmfQucpoyr94/10/2019CommentsUnknownSex and Gender Information ValueDate RecordedSex Assigned at BirthNot on fileLegal LdzWseogg68/04/2015 11:59 AM EDTGender IdentityNot on fileSexual OrientationNot on file Plan of Treatment Health MaintenanceDue DateLast DoneCommentsDepression Glseckgos67/17/1983Tobacco Ihfsaxnio22/17/1983Adult BMI Hzfoehyev97/17/1989DTaP,Tdap and Td Vaccines (1 - Tdap)1990Pap Smear02/28/1992Zoster (Shingles) Vaccine (1 of 2)2021 Influenza Wgzygtg83/01/119808/, 11/03/2018, 12/23/2017 [employer] Not on file Insurance Care Teams Team MemberRelationshipSpecialtyStart DateEnd Date Carmela Lester, CONTROL SYSTEMS DEVELOPER-ALUMINUM POOL INSTALLER PCP - GeneralNurse Practitioner10/21/20
--- OUTSIDE RECORDS SUMMARY | 2025-02-02 09:44 | XMS_ITS | Clinical Summary ---
Author Organization [employer] [facility] [facility] Address [address] [place] [address] Care Team Providers Care Seismograph Recorder Name Role Phone Carmela Lester NP Unavailable [phone] Parviz Stewart MD Primary Care Provider [phone] Carmela Lester NP Unavailable [phone] Nai Chávez DO Unavailable [phone] Jessica Venegas NP Unavailable [phone] Allergies Active AllergyReactionsCriticalityNoted DateCommentsWound Dressing AdhesiveHives [...] MG SL tablet Indications:Coronary artery disease involving [place] coronary artery of [place] heart without angina pectorisPlace 1 tablet (0.4 mg) under the tongue every 5 (five) minutes if needed for chest pain If after 3doses still chest pain, go to ER/call 911 25 tablet 4Active atorvastatin (Lipitor) 80 MG tablet Indications:Coronary artery disease involving [place] coronary artery of [place] heart without angina pectorisTake 1 tablet (80 mg) by mouth at bedtime Take pill in the evening time not morning 90 tablet tive ezetimibe (Zetia) 10 MG tablet Indications:Coronary artery disease involving [place] coronary artery of [place] heart without angina pectorisTake 1 tablet (10 mg) by mouth Daily 90 tablet tive isosorbide mononitrate ER (Imdur) 120 MG 24 hr tablet Indications:Coronary artery disease involving [place] coronary artery of [place] heart without angina pectoris,Essential hypertensionTake 1 tablet [...] Problems ProblemNoted DateDiagnosed DateCigarette nicotine dependence without apieqqhaxksr43/01/2025 Assessment & Plan (09/11/2024 7:24 AM EDT): [...] to start this process Breast cancer screening passyalz45/01/9376Zakeslastbj21/15/2024Sensory ywllnwradz17/15/2024Lumbosacral hzajtcwmuklkt85/15/2024OSA (obstructive sleep apnea)09/26/2023 Assessment & Plan (09/11/2024 [...] etc: Doctor that manages your ERICK: Daytime aujnmmgocl93/15/2024ervical stenosis of spinal canal09/07/2023 Assessment & Plan (09/07/2023 8:50 PM EDT): Reviewed MRI cervical spine Will refer to neurosurgeon dr helen Sales in 8 weeks Cervical rnzozhtsaquwd15/26/2024 Assessment & Plan (09/07/2023 8:50 PM EDT): Reviewed MRI Refer neurosurgeon Check EMG right UE Cervical neck pain with evidence of disc jgiflmu8707/11/2023 Assessment & Plan (07/11/2023 5:14 PM EDT): Suspect disc pathology right UE PT agrees with need for MRI Will order MRI Fu in 4 weeks to review the results Dyuzreozqp38/27/2024Lumbosacral radiculopathy at S1005/10/2023Loud snoring 05/10/2023eripheral artery dabefwu5305/10/2023Myocardial urbmyhoahm33/27/2024 Prinzmetal aartgp9505/10/2023AD (coronary artery disease)05/10/2023 Assessment & Plan (09/11/2024 7:23 AM EDT): Current meds: statin, zetia, alee, imdur, b jsoe , verapamil, and prn nitroglycerin Abnormal ankle brachial index (LYSSA)05/10/2023GERD (gastroesophageal reflux disease)05/10/20231209Tczzwcvtidu69/27/2024symptomatic microscopic hematuria 05/10/2023ilateral hand pain05/10/2023 Assessment & Plan (09/11/2024 2:59 PM EDT): Bilat hand xray Consider ortho, ?? Dequervains tenosynovitis Vitamin D ipqjjnpcpw95/27/2024Vitamin B12 hxauswmhub86/27/2024Seasonal allergies 05/10/2023ack pain, brhbout3605/10/2023Trapezius muscle spasm05/10/2023 Assessment & Plan (07/11/2023 4:03 [...] (02/07/2023 3:30 PM EST): Check labs Angina ohbcmbtn06/17/3189Ehydaehbyokm88/17/2012 Assessment & Plan (09/11/2024 7:22 AM EDT): [...] to cardiology w her hx of CAD [facility], would like to see Dr Lombardo Assessment & Plan (05/10/2023 2:12 PM EST): Out of lisinopril, was only taking half the dose Meds are refilled, pt will start back on normal dose To stop by office in 2 days for blood pressure check Assessment & Plan (02/07/2023 3:29 PM EST): Stable, cont current meds Check labs Fu in 3 months Coronary tgpjfhjezxyhpzt24/15/2011 Assessment & Plan (02/07/2023 3:29 PM EST): Stable no chest pain Check labs, recommend quit tobacco Kcuyejsxpfitik28/15/2011 Overview (02/08/2023): Needs refill of zetia Assessment & Plan (09/11/2024 7:24 AM EDT): On statin and zetia Check labs yearly and prn dose changes Resolved Problems ProblemNoted DateDiagnosed DateResolved DateClosed traumatic minimally displaced fracture of proximal end of fibula with routine dfpcmpu58/ Tobacco user/03/2024 Assessment & Plan (07/11/2023 4:03 [...] preservative free11/04/2022,01/01/2022,01/03/2021,12/11/2019,11/03/2018, 12/23/2017Pneumococcal Conjugate PCV 3Pneumococcal Polysaccharide [id number] Family History Medical HistoryRelationNameCommentsHeart diseaseFatherHypertensionFather HypertensionMotherRelationNameStatusCommentsFatherMother Social History Tobacco UseTypesPacks/DayYears UsedDateSmoking Tobacco: CyobtkXsmbkslnsh584 Smokeless Tobacco: NeverAlcohol UseStandard Drinks/WeekCommentsNever0 (1 standard drink = 0.6 oz pure alcohol)PHQ-2AnswerDate RecordedPatient Health Questionnaire-2 [id number] and Gender InformationValueDate RecordedSex Assigned at BirthNot on fileLegal SexFemale 05/26/2022 6:33 PM EDTGender IdentityNot on fileSexual OrientationNot on file Last Filed Vital Signs Vital SignReadingTime TakenCommentsBlood Duuzjtfj377/8007/03/2024 2:19 PM EDT Zndxc2837 2:19 PM NZBBarrlvhmxhv66.9 ??C (98.5 ??F)09/11/2024 2:19 PM EDTRespiratory Iejb686409/11/2024 2:19 PM EDTOxygen Ugveocdybz78%09/11/2024 2:19 PM EDTInhaled Oxygen Concentration--Yfrjmd25.4 kg (139 lb 12.8 oz)09/11/2024 2:19 PM JEZBwmebq589.6 cm (5' 4 )03/26/2024 3:21 PM ESTBody Mass Index24 03/26/2024 3:21 PM EST Plan of Treatment Not on file Insurance Care Teams Team MemberRelationshipSpecialtyStart DateEnd Date Parviz Stewart MD [address] [place] [address] PCP - GeneralFamily Medicine05/10/23 Carmela Lester NP [address] [place] [address] Referring PhysicianNurse Practitioner10/04/22 Carmela Lester NP [address] [place] [address] Nurse PractitionerFabrigham and women's hospital Medicine05/10/23 Nai Chávez DO [address] [place] [address] Referring PhysicianNeurolog03/27/24 Jessica Venegas NP Nurse PractitionerNeurology1
--- OUTSIDE RECORDS SUMMARY | 2025-02-02 09:44 | XMS_ITS | Clinical Summary ---
Author Organization [facility] Address [address] [place] [address], [address] [place] [address] Care Team Providers Care Tray Worker Name Role Phone Unavailable Primary Care Provider Unavailabl e Social History Tobacco UseTypesPacks/DayYears UsedDateSmoking Tobacco: Never Assessed CommentsUnknownSex and Gender InformationValueDate RecordedSex Assigned at Not on fileLegal QzxTdrgjl84/12/2013 8:47 PM ESTGender IdentityNot on fileSexual OrientationNot on file Plan of Treatment Not on file
--- OUTSIDE RECORDS SUMMARY | 2025-02-02 09:44 | XMS_ITS | Clinical Summary ---
Author Organization [facility] Address [address] [place] [address] Care Team Providers Care Film Sorter Name Role Phone Carmela Lester MD Primary Care Provider [phone] Allergies No known active allergies Medications MedicationSigDispense [...] times daily.05/09/2023ctive Active Problems ProblemNoted DateDiagnosed DateDaytime chlxtkywzt64/15/2024OSA (obstructive sleep apnea)09/26/20232638Daauuiefaak10/15/2024ervical qfriazieszstl17/26/2024 Cervical neck pain with evidence of disc tsdquiu3407/11/2023bnormal ankle brachial index (LYSSA)symptomatic microscopic hematuria ack pain, xlixhcb05ilateral hand pain GERD (gastroesophageal reflux disease) Loud fanyqaz10Lumbosacral radiculopathy at S1005/10/2023 06/08/20236548Wcsrnejgroo82Neuropathy Peripheral artery vswrete20Seasonal pqqucndfs71/27/2024 06/08/2023Tobacco userTrapezius muscle spasm05/10/2023 06/08/2023 Overview (06/08/2023): Last Assessment & Plan: Doing well on tizanidine, will give refill Will refer to [facility] in 6 weeks Vitamin B12 urxnnppbar74Vitamin D gsehjbolaa30/27/2024 06/08/2023GoutHypothyroidism (acquired)/ Overview (06/08/2023): Last Assessment & Plan: C/o weight gain, fatigue Will check labs Cont current supplement at this time Prinzmetal gifokj24Essential jvvczbwrjtew73 Overview (06/08/2023): Last Assessment & Plan: Back on lisinopril BID, better blood pressure control with metoprolol at 125mg BID I have reviewed her ECHO report with her, I am going to refer her back to cardiology w her hx of CAD [facility], would like to see Dr Lombardo Coronary kesflnqhrkdenqk54 Overview (06/08/2023): Last Assessment & Plan: Stable no chest pain Check labs, recommend quit tobacco Cgjewzgltujunj21 Overview (06/08/2023): Needs refill of zetia Family History Medical HistoryRelationNameCommentsCoronary artery diseaseFatherRelationName StatusCommentsFather Social History Tobacco UseTypesPacks/DayYears UsedDateSmoking Tobacco: FormerCigarettes Smokeless Tobacco: Current Tobacco Cessation:Ready to Q uit: Not Asked; Counseling Given: Not Answered Comments:vapes Alcohol UseStandard Drinks/WeekCommentsNot Currently0 (1 standard drink = 0.6 oz pure alcohol)[place] Safety & EnvironmentAnswerDate RecordedFear of Current or Ex-PartnerNot on file05/31/2023Emotionally AbusedNot on file05/31/2023hysically AbusedNot on file05/31/2023Sexually AbusedNot on 05/31/2023hysically or Sexually AbusedNot on 05/31/2023CommentsUnknownSex and Gender InformationValueDate RecordedSex Assigned at BirthNot on fileLegal SexFemale 09/09/2021 10:46 PM EDTGender IdentityNot on fileSexual OrientationNot on file Last Filed Vital Signs Vital SignReadingTime TakenCommentsBlood Lhtrcmuc085/8406/04/2024 1:00 PM EDT Xxdmu925206/04/2024 1:00 PM EDTTemperature--Respiratory Rate--Oxygen Itbwxxwgdl87% 06/04/2024 1:00 PM EDTInhaled Oxygen Concentration--Uuapxx77.8 kg (145 lb) 06/04/2024 1:00 PM JDOCrlzjx184.6 cm (5' 4 )06/04/2024 1:00 PM EDTBody Mass Index24.8906/04/2024 1:00 PM EDT Plan of Treatment DateTypeDepartmentCare Team (Latest Contact Info)Mvztxzbhkui95/11/2025 1:45 PM ESTOffice Visit [facility] [address] [place] [address] Nino Zapata MD [address] [facility] [place] [address] Health MaintenanceDue DateLast DoneCommentsCT Rwdzwerparnu1971Colonoscopy 1971FOBT1971 7321Igbwxrtnkcjsy1971Depression Nqboxpazw03/17/1983 Hepatitis B Vaccines (1 of 3 - 19+ 3-dose series)1990Pap Smear02/28/1992 Adult Gdxenfb9502/27/1993Cervical Cancer Mkrutaphw60/17/2001HPV/Zgwhok9802/27/2001 Icnfvjmgw39/17/2011Zoster Vaccines (1 of 2)2021FIT02/25/20230315/ COVID-19 Vaccine (1 - 2024- season)2024Influenza Vaccine (#1)2024 11/04/2022, 01/01/2022, 01/03/2021, Additional history existsColorectal Cancer Xozgvnnsh07/15/2026FIT-DNAneumococcal Vaccine: Pediatrics (0 to 5 Years) and At-Risk Patients (6 to 64 Years)Bcwnmnslw53/24/2023, 11/03/2018HIB VaccinesAged OutNo longer eligible based on [...] DateEnd Date Carmela Lester MD [address] [place] [address] PCP - GeneralNurse Practitioner06/08/23
[2025-02-02 10:14] LABS: Hematocrit 39.4 % (36.0-48.0); Hemoglobin 13.4 g/dL (12.0-16.0); Immature Granulocytes Abs Auto 0.02 10^3/uL (0.00-0.03); Immature Granulocytes Pct Auto 0.3 % (0.0-0.5); Lymphocytes Absolute Auto 2.2 10^3/uL (1.2-3.8); Mean Corpuscular HGB Conc 34.0 g/dL (29.9-35.2); Mean Corpuscular Hemoglobin 33.3 pg (26.7-34.0); Mean Corpuscular Volume 97.8 fL (81.0-99.0); Platelet Count 231 10^3/uL (150-450); Red Blood Count 4.03 10^6/uL (4.20-5.40); White Blood Count 7.5 10^3/uL (4.0-11.0)
[2025-02-02 11:12] LABS: Thyroid Stimulating Hormone 0.355 uIU/mL (0.358-3.740)
== END 2025-02-02 09:42 | disposition home or self-care (01) ==
LOC: LAB 09:41
PROVIDERS: PCP Nurse Practitioner; Visit Provider Nurse Practitioner
DX: E03.9 Hypothyroidism, unspecified (principal); I25.10 Atherosclerotic heart disease of native coronary artery without angina pectoris
CPT/HCPCS: 36415; 84443; 85025

== ENCOUNTER 2025-02-23 10:01 | Outpatient (OUT) | payer OTHER, SELFPAY ==
--- OUTSIDE RECORDS SUMMARY | 2025-02-23 10:06 | XMS_ITS | CCD ---
Author Organization [facility] Care Team Providers Care Teacher Tutor Name Role Phone AICHHOLZ, GEOPHYSICAL LABORATORY DIRECTOR CARMELA Admitting Unavailable AICHHOLZ, GEOPHYSICAL LABORATORY DIRECTOR CARMELA Attending Unavailable AICHHOLZ, GEOPHYSICAL LABORATORY DIRECTOR CARMELA Primary Care Unavailable AICHHOLZ, GEOPHYSICAL LABORATORY DIRECTOR CARMELA Consulting Unavailable AICHHOLZ, GEOPHYSICAL LABORATORY DIRECTOR CARMELA Admitting Unavailable AICHHOLZ, GEOPHYSICAL LABORATORY DIRECTOR CARMELA Attending Unavailable AICHHOLZ, GEOPHYSICAL LABORATORY DIRECTOR CARMELA Primary Care Unavailable AICHHOLZ, GEOPHYSICAL LABORATORY DIRECTOR CARMELA Consulting Unavailable AICHHOLZ, GEOPHYSICAL LABORATORY DIRECTOR CARMELA Admitting Unavailable AICHHOLZ, GEOPHYSICAL LABORATORY DIRECTOR CARMELA Attending Unavailable AICHHOLZ, GEOPHYSICAL LABORATORY DIRECTOR CARMELA Primary Care Unavailable AICHHOLZ, GEOPHYSICAL LABORATORY DIRECTOR CARMELA Consulting Unavailable AICHHOLZ, GEOPHYSICAL LABORATORY DIRECTOR CARMELA Admitting Unavailable AICHHOLZ, GEOPHYSICAL LABORATORY DIRECTOR CARMELA Attending Unavailable AICHHOLZ, GEOPHYSICAL LABORATORY DIRECTOR CARMELA Primary Care Unavailable AICHHOLZ, GEOPHYSICAL LABORATORY DIRECTOR CARMELA Consulting Unavailable Aichholz, Carmela J Primary Care Provider ORLY Comer Attending Provider ORLY Comer Attending Provider ORLY Comer Attending Provider DO Milton Appiah Attending Provider [phone] Aichholz, Carmela J Primary Care Provider Milton Appiah DO Attending Provider Aicjaneholz MECHANICAL ENGINEERING DRAFTSPERSON, Carmela Unavailable Parviz Stewart MD Primary Care Provider [phone] Aichholz MECHANICAL ENGINEERING DRAFTSPERSON, Carmela Unavailable Milotn Appiah Attending Unavailable Milton Appiah Admitting Unavailable Aichholz, Carmela J Primary Care Unavailable Bialaski, Milton N Attending Unavailable Td Milton N Admitting Unavailable Carmela Lester Primary Care Unavailable Amanda Comerna Admitting Unavailable Carmela Lester Primary Care Unavailable Nahomi, Loly Attending Unavailable Bialjoycei, Milton N Attending Unavailable Td, Milton N Admitting Unavailable Carmela Lester Primary Care Unavailable Den Chávez DO Unavailable Theo MECHANICAL ENGINEERING DRAFTSPERSON, Jessica Unavailable ELTAHAWY, EHAB Attending Unavailable [place], EHAB Attending Unavailable Giedraitis , Andrius Vytautas Attending Unavailable Giedraitis , Andrius Vytautas Attending Unavailable Giedraitis , Andrius Vytautas Attending Unavailable Giedraitis , Andrius Vytautas Attending Unavailable Theo MECHANICAL ENGINEERING DRAFTSPERSON, Jessica Unavailable DEN CHÁVEZ Attending Unavailable CARMELA LESTER Attending Unavailable ASHUTOSH QUINTANA Attending Unavailable CARMELA LESTER Referring Unavailable DEN CHÁVEZ Attending Unavailable MILTON APPIAH Referring Unavailable Trevon MECHANICAL ENGINEERING DRAFTSPERSON-CCarmela Primary Care Provider Trevon MECHANICAL ENGINEERING DRAFTSPERSON-CCarmela Attending Provider Trevon BENITEZ, Carmela Unavailable Parviz Stewart MD Primary Care Provider Trevon BENITEZ, Carmela Unavailable Den Chávez DO Unavailable Theo BENITEZ, Jessica Unavailable [phone] Allergies Allergy ClassificationReported Allergen(s)Allergy TypeDate of OnsetReaction(s) Facility (1 source)DesonideDrug Otrwrow82-80-4677Dgt [facility] Repository (20 sources)Wound Dressing AdhesiveDrug Gvurkst66-11-1044ZtqgyNPMZ Healthcare Medications Current Medications MedicationDrug Class(es)DatesSig (Normalized)Sig (Original)allopurinol 300 mg oral tablet (8 sources)Xanthine Oxidase InhibitorStart: 37-43-8320Jkqxoxnbgdi 300 mg tablet Active MG PO October 06, 2023 12:00am Complies with drug therapyStart: 10-06-2023 Allopurinol Active MG PO October 06, 2023 12:00amaspirin 81 mg delayed release oral tablet (8 sources)Platelet Aggregation Inhibitor, Nonsteroidal Anti-inflammatory Drug Start: 23-63-5938Yrnimix (Adult Low Dose Aspirin) 81 mg tablet,delayed release (DR/EC) Active 81 MG PO Daily October 06, 2023 12:00am Complies with drug therapy atorvastatin 80 mg oral tablet (20 sources)HMG-CoA Reductase InhibitorStart: 98-65-5047Hlwoszglzrtj Active MG PO October 06, 2023 12:00amStart: 08-10-2023 End: 28-81-1091Oauwnnglesgc 80 mg tablet Active MG PO October 06, 2023 12:00am Complies with drug therapydiclofenac sodium 0.01 mg/mg topical gel (3 sources)Nonsteroidal Anti-inflammatory DrugStart: 10-16-2024 End: 57-69-8472vmtccyvhab sodium (Voltaren) 1 % gel Indications: Bilateral [...] oral tablet (20 sources)Dietary Cholesterol Absorption InhibitorStart: 99-41-7140Slolhafdj Active MG PO October 06, 2023 12:00amStart: 08-10-2023 End: 47-60-7187Yffohkrma 10 mg tablet Active MG PO October 06, 2023 12:00am Complies with drug therapygabapentin 300 mg oral capsule (20 sources)Anti-epileptic AgentStart: 39-89-9341yyhu 2 capsules by mouth three times daily as neededGabapentin 300 mg capsule Active 600 MG PO Three times daily as needed December 26, 2023 10:04am Complies with drug therapyStart: 81-95-0190wqyc 600 mg by mouth three times dailyGabapentin Active 600 MG PO Three times daily December 26, 2023 10:04amStart: 10-06-2023 End: 86-04-0621Ogmkrvhhkm Discontinued MG PO October 06, 2023 12:00am December 26, 2023 10:06amStart: 08-10-2023 End: 91-14-7317Zqvplriler 300 mg capsule Discontinued MG PO October 06, 2023 12:00am December 26, 2023 10:06am24 hr isosorbide mononitrate 120 mg extended release oral tablet (20 sources)Nitrate VasodilatorStart: 05-21-2024 End: 67-98-7858ikud 1 tablet by mouth once daily in the morningisosorbide mononitrate ER (Imdur) 120 MG 24 hr tablet Indications: Coronary artery disease involving [place] coronary artery of [place] heart without angina pectoris , Essential hypertension Take 1 tablet (120 mg) by mouth Daily Do not crush or chew. Take 120 mg by mouth in the morning. Do not crush or chew. . 90 tablet 1 09/11/2024 12/10/2024 ActiveStart: 08-39-2974mixm 1 tablet by mouth every twenty-four hoursIsosorbide Mononitrate 120 mg tablet extended release 24 hr Active MG PO October 06, 2023 12:00am Complies with drug therapyStart: 08-10-2023 End: 91-26-4271ceho 1 tablet by mouth once daily in the morningisosorbide mononitrate ER (Imdur) 120 MG 24 hr tablet Indications: Coronary artery disease involving [place] coronary artery of [place] heart without angina pectoris (CMS/HCC) , Essential hypertension (CMS/HCC) Take 1 tablet (120 mg) by mouth Daily Do not crush or chew. Take 120 mg by mouth in the morning. Do not crush or chew. . 90 tablet 1 11/22/2023 Activelevothyroxine sodium 0.075 mg oral tablet (20 sources)l-ThyroxineStart: 69-64-9562Jzsobhucpkoti Active MCG PO October 06, 2023 12:00amStart: 08-10-2023 End: 35-81-8375xznd 1 tablet by mouth before mealtimelevothyroxine (Synthroid, Levoxyl) 75 MCG tablet Indications: Hypothyroidism (acquired) Take 1 tablet (75 mcg) by mouth in the morning. Take before meals. 90 tablet 1 09/11/2024 12/10/2024 Activelisinopril 20 mg oral tablet (20 sources)Angiotensin Converting Enzyme InhibitorStart: 55-60-3699woao 1 tablet by mouth twice dailyLisinopril 20 mg tablet Active 20 MG PO Twice daily December 12, 2024 7:02am Complies with drug therapyStart: 01-54-5471Miorbdcadc Active MG PO October 06, 2023 12:00amStart: 08-10-2023 End: 21-73-7079gznn 1 tablet by mouth in the morninglisinopril 20 MG tablet Indications: Primary hypertension , Essential hypertension Take 1 tablet (20 mg) by mouth in the morning and 1 tablet (20 mg) before bedtime. 180 tablet 1 09/11/2024 12/10/2024 Activemetoprolol tartrate 25 mg oral tablet (20 sources)beta-Adrenergic BlockerStart: 05-21-2024 End: 00-82-7677ptmf 1 tablet by mouth twice dailyMetoprolol Tartrate 25 mg tablet Active 25 MG PO Twice daily December 11, 2024 12:00am Complies with drug therapyStart: 05-21-2024 End: 48-10-7032cnrw 1 tablet by mouth in the morningmetoprolol tartrate (Lopressor) 100 MG tablet Indications: Primary hypertension , Essential hyperten dominguez Take 1 tablet (100 mg) by mouth in the morning and 1 tablet (100 mg) before bedtime. 180 tablet 1 09/11/2024 12/10/2024 ActiveStart: 03-14-2024 End: 23-74-0637nmud 1 tablet by mouth in the morningmetoprolol tartrate (Lopressor) 25 MG tablet Indications: Essential hypertension (CMS/HCC) Take 1 ta blet (25 mg) by mouth in the morning and 1 tablet (25 mg) before bedtime. 60 tablet 1 03/14/2024 04/13/2024 ActiveStart: 01-13-2024 End: 82-39-3719slad 1 tablet by mouth in the morningmetoprolol tartrate (Lopressor) 25 MG tablet Indications: Essential hypertension (CMS/HCC) Take 1 ta blet (25 mg) by mouth in the morning and 1 tablet (25 mg) before bedtime. 60 tablet 1 01/13/2024 ActiveStart: 91-65-3362Wxpeyrcwxe Tartrate 100 mg tablet Active 125 MG PO Twice daily December 26, 2023 10:05am Complies with drug therapyStart: 24-92-8642vxkf 125 mg by mouth twice dailyMetoprolol Tartrate Active 125 MG PO Twice daily December 26, 2023 10:05amStart: 10-06-2023 End: 33-88-4205Srlxnpugqv Tartrate Discontinued MG PO October 06, 2023 12:00am December 26, 2023 10:06amStart: 08-10-2023 End: 13-91-7528qmcx 1 tablet by mouth in the morningmetoprolol tartrate (Lopressor) 25 MG tablet Indications: Essential hypertension (CMS/HCC) Take 1 ta blet (25 mg) by mouth in the morning and 1 tablet (25 mg) before bedtime. 60 tablet 1 11/22/2023 12/22/2023 ActiveStart: 08-10-2023 End: 69-19-8742Fslfqzkbbl Tartrate 100 mg tablet Discontinued MG PO October 06, 2023 12:00am December 26, 2023 10:06amnitroglycerin 0.4 mg sublingual tablet (20 sources)Nitrate VasodilatorStart: 72-46-7665Aegytpnpvbeec Active MG SUBLINGUAL December 26, 2023 12:00amStart: 05-10-2023 End: 63-96-4653Kpcytmdsglwey 0.4 mg tablet, sublingual Active MG SUBLINGUAL December 26, 2023 12:00am Complies with drug therapyNitroglycerin 0.4 mg tablet, sublingual (1 source)Start: 43-91-3260Oqyoliyqxsyww 0.4 mg tablet, sublingual Active MG SUBLINGUAL December 25, 2023 11:00pmtiZANidine 4 mg oral tablet (20 sources)Central alpha-2 Adrenergic AgonistStart: 55-05-5854Egircymyph Active MG PO October 06, 2023 12:00amStart: 89-76-9972pqGGEqamwk (Zanaflex) 4 MG tablet Indications: Trapezius muscle spasm Take 1 tablet (4 mg) by mouthas needed at bedtime for muscle spasms for up to 15 days May cut pill in half and take 1/2 pill at bedtime 15 tablet 1 08/10/2023 Activeverapamil hydrochloride 80 mg oral tablet (20 sources)Calcium Channel BlockerStart: 42-31-9501Izpacplvi Active MG PO October 06, 2023 12:00amStart: 08-10-2023 End: 02-98-0272Xnxifqwoy 80 mg tablet Active MG PO October 06, 2023 12:00am Complies with drug therapy Problems Active Problems Problem ClassificationProblemDateDocumented DateEpisodic/ChronicAcute myocardial infarction (20 sources)Myocardial infarction; Translations: [Acute myocardial infarction, unspecified]Onset: 322671-88-6256CjduninWfctcpdw atherosclerosis and other heart disease (20 sources)Atherosclerotic heart disease of [place] coronary artery without angina pectoris; Translations: [Angina pectoris]Onset: ChronicDisorders of lipid metabolism (20 sources)Pure hyperglyceridemia; Translations: [Hyperlipidemia, unspecified] Onset: 92-82-4492XjmworfDcunegeizy disorders (20 sources)Gastroesophageal reflux disease; Translations: [Gastro-esophageal reflux disease without esophagitis]Onset: 032102-86-1848BvrhgotVjjboourn hypertension (20 sources)Essential (primary) hypertension; Translations: [Hypertensive disorder]Onset: 30-37-2971CijhknjDctj and other crystal arthropathies (20 sources)Gout, unspecified; Translations: [Primary gout]Onset: 01-26-2022 66-66-6776VzvbeeiOqxhykv and fatigue (1 source)Other fatigue; Translations: [OTHER FATIGUE]Onset: 67-87-0263Gxencbdw Menstrual disorders (20 sources)Menorrhagia; Translations: [Excessive and frequent menstruation with regular cycle]Onset: 071035-79-8984ZrbfaefUuzxjjbsnbe deficiencies (20 sources)Vitamin D deficiency; Translations: [Vitamin D deficiency, unspecified]Onset: 800716-50-9664InuzhppGxfni connective tissue disease (7 sources)Pain in upper limb; Translations: [Pain in arm, unspecified] 95-57-9526PavuanovMlkqi connective tissue disease (12 sources)Pain in arm, unspecified; Translations: [Pain in limb]10-06-2023 EpisodicOther connective tissue disease (1 source)Pain in right arm; Translations: [Pain in right arm]Onset: 03-02-2024 EpisodicOther nervous system disorders (7 sources)Ulnar neuropathy; Translations: [Lesion of ulnar nerve, unspecified upper limb]93-99-2133YcfodhvNakkf nervous system disorders (11 sources)Lesion of ulnar nerve, unspecified upper limb; Translations: [Lesion of ulnar nerve]Onset: 567135-30-1559BhzauwkWgumm nervous system disorders (20 sources)Neuropathy; Translations: [Polyneuropathy, unspecified]Onset: 762346-50-7714RjavzilTwbfj nervous system disorders (20 sources)Sensory neuropathy; Translations: [Polyneuropathy, unspecified] Onset: 693188-45-7927EntdwhgBizjd nervous system disorders (3 sources)Idiopathic peripheral neuropathy; Translations: [Hereditary and idiopathic neuropathy, unspecified]53-21-6739HhsouyiWgaut nervous system disorders (2 sources)Numbness and tingling sensation of skin; Translations: [Anesthesia of skin]79-08-3720RqpwiktxAwsvf non-traumatic joint disorders (2 sources)Joint pain; Translations: [Pain in unspecified joint]03-26-2024 EpisodicOther nutritional; endocrine; and metabolic disorders (1 source)Overweight; Translations: [OVERWEIGHT]Onset: 18-08-0652ScvipphlMvoyw upper respiratory disease (20 sources)Seasonal allergy; Translations: [Other seasonal allergic rhinitis] Onset: 294818-21-6699KqxyhrdVovushawkx and visceral atherosclerosis (20 sources)Peripheral vascular disease, unspecified; Translations: [Peripheral vascular disease, unspecified]Onset: 378376-70-7960IqzdetjHmqcltda codes; unclassified (20 sources)Obstructive sleep apnea syndrome; Translations: [Obstructive sleep apnea (adult) (pediatric)]Onset: 442815-11-7740VvjgiuxNxfwepiuwir; intervertebral disc disorders; other back problems (20 sources)Pain in cervical spine; Translations: [Cervical disc disorder, unspecified, unspecified cervical region]Onset: hronic Substance-related disorders (12 sources)Tobacco dependence caused by cigarettes; Translations: [Nicotine dependence, cigarettes, uncomplicated]Onset: 016365-07-2799FtrmwcwOvrisah disorders (20 sources)Hypothyroidism, unspecified; Translations: [Acquired hypothyroidism] Onset: 29-16-9901Uwocuej Past or Other Problems Problem ClassificationProblemDateDocumented DateEpisodic/ChronicChronic obstructive pulmonary disease and bronchiectasis (20 sources)Bronchitis; Translations: [Bronchitis, not specified as acute or chronic]Onset: 02-07-2023 Resolved: 442766-87-6249IkrncxogZgru; stupor; and brain damage (20 sources)Daytime somnolence; Translations: [Somnolence]Onset: 09-26-2023 92-39-4332ZmticwseUqewlgxb of lower limb (20 sources)Closed fracture of head of fibula; Translations: [Other fracture of upper and lower end of unspecified fibula, subsequent encounter for closed fracture with routine healing]Onset: 05-10-2023 Resolved: 685321-14-9827MvulkiakNzivsfcxaaauc symptoms and ill-defined conditions (20 sources)Asymptomatic microscopic hematuria; Translations: [Asymptomatic microscopic hematuria]Onset: 402188-47-4656NxndinfuVfemvvxvmjw deficiencies (20 sources)Cobalamin deficiency; Translations: [Deficiency of other specified B group vitamins]Onset: 514850-38-0782OpbokdjaYzpli connective tissue disease (20 sources)Pain of bilateral hands; Translations: [Pain in right hand]Onset: 347884-44-3378IsshvwpfThyfv connective tissue disease (20 sources)Muscle spasm of cervical muscle of neck; Translations: [Other muscle spasm]Onset: 05-10-2023 Resolved: 537281-91-3184KwnexmniGgyur lower respiratory disease (20 sources)Snoring; Translations: [Snoring]Onset: 334730-79-6937Hvbvhfwh Other nervous system disorders (20 sources)Paresthesia; Translations: [Paresthesia of skin]Onset: 09-26-2023 35-53-4230BubnjoscOlrgxljh codes; unclassified (20 sources)Finding of systemic arterial pressure; Translations: [Other general symptoms and signs]Onset: 758784-01-4153AtcaaxodOcnjowph codes; unclassified (20 sources)Tobacco user; Translations: [Tobacco use]Onset: 05-10-2023 Resolved: 516444-69-8542ZhhwvxgxGrjilmsttnk; intervertebral disc disorders; other back problems (20 sources)Cervical radiculopathy; Translations: [Radiculopathy, cervical region]Onset: 815159-58-7316Lyycqwmh Results Test NameValueInterpretationReference RangeFacilityXR Hand - bilateral 2 Viewson 35-54-3585[place]Wil[place] [address] XRay Report Signed Patient: DIANE MENDOZA MR#: [id number] : 1970 Acct:[id number] Age/Sex: 54 / F ADM Date: 10/10/24 Loc: [facility] Attending Dr: Carmela Lester NP Ordering Physician: Carmela Lester NP Date of Service: 10/10/24 Procedure(s): XR hand ALYSSA 2V Accession Number(s): [id number] cc: Carmela Lester NP [place] [id number] Patient Name: DIANE MENDOZA MRN: [id number] date: 1970 Sex: F Assigned Patient Location: RAD Current Patient Location: RAD Accession/Order Number: [id number] Exam Date: 10/10/2024 14:34 Report Date: 10/10/2024 [...] Jr., D.O. 10/10/2024 2:35 PM Dictation Location: [place] [address] Electronically authenticated by: [id number] Y Date: 10/10/2024 14:35 Dictated By: Supa Morales M.D. Signed By: 10/10/247 DD/ 34 TD/TT: Catalyst Unit Operator:TBHRadiology, Radiologist, - 10/10/2024 [place] [address] XRay Report Signed Patient: DIANE MENDOZA MR#: [id number] : 1970 Acct:[id number] Age/Sex: 54 / F ADM Date: 10/10/24 Loc: [facility] Attending Dr: Carmela Lester NP Ordering Physician: Carmela Lester NP Date of Service: 10/10/24 Procedure(s): XR hand ALYSSA 2V Accession Number(s): [id number] cc: Carmela Lester NP [place] [id number] Patient Name: DIANE MENDOZA MRN: [id number] date: 1970 Sex: F Assigned Patient Location: [facility] Current Patient Location: [facility] Accession/Order Number: [id number] Exam Date: 10/10/2024 14:34 Report Date: 10/10/2024 [...] Jr., D.O. 10/10/2024 2:35 PM [facility]ict[facility] Electronically authenticated by: [id number] Y Date: 10/10/2024 14:35 Dictated By: Supa Morales M.D. Signed By: 10/10/24 143 DD/ 34 TD/TT: Catalyst Unit Operator: LILY HealthcareRadiology Study observation (narrative)[facility] Medical CenterXR Hand - bilateral 2 ViewsOrdered By: Radiologist Radiology on 39-87-3735DBYOResearch Medical Center Work Phone: all CBC WITH AUTO DIFFon 06-09-8175ZIEFLJSLE ABSOLUTE AUTO0.1NOMS HealthcareBasophils/100 WBC (Bld)1.5 %0.2 - 2.0 %[facility] Eosinophils/100 WBC (Bld)2.6 %0.9 - 7.0 %[facility] Medical CenterErythrocyte distribution width (RBC) [Ratio]11.8 %11.0 - 15.0 %[facility] Medical CenterHematocrit (Bld) [Volume fraction]41.2 %36.0 - 48.0 %[facility] Medical CenterHemoglobin (Bld) [Mass/Vol]13.7 g/dL 12.0 - 16.0 g/dLResearch Medical CenterIMMATURE GRANULOCYTES ABS AUTO0.02NOUniversity Health [facility] Immature granulocytes/100 WBC (Bld)0.3 %0.0 - 0.5 %Research Medical CenterLYMPHOCYTES ABSOLUTE AUTO2.1NOMS HealthcareLymphocytes/100 WBC (Bld)35.1 %20.5 - 60.0 %[facility] HospitalH (RBC) [Entitic mass]31.6 pg26.7 - 34.0 pgNOCarondelet HealthHC (RBC) [Mass/Vol]33.3 g/dL29.9 - 35.2 g/dLNOCarondelet HealthV (RBC) [Entitic vol]95.2 fL 81.0 - 99.0 fLNODE HealthcareMONOCYTES ABSOLUTE AUTO0.6NOMS Healthcare Monocytes/100 WBC (Bld)9.4 %1.7 - 12.0 %NOM HealthcareNEUTROPHILS ABSOLUTE AUTO 3.1NOMS HealthcareNeutrophils/100 WBC (Bld)51.1 %43.0 - 75.0 %[facility] Healthcare Platelet mean volume (Bld) [Entitic vol]11.5 fL9.5 - 13.5 fLResearch Medical CenterTBH EO #0.2NOMS HealthcareTBH NIM454ISFT HealthcareTBH RBC4.33NODE HealthcareTBH WBC 6NODE HealthcareCLINISYNCNOMS HealthcareOffice Visiton 97-00-4103Lgjyqo-up visit [id number] Diane Mendoza 1970 F Date Provider Department Center 06/04/2024 [facility] Family History Problem Relation Age of Onset Coronary artery disease Father Family Status - Relation Status Age at Father Level of Service:[address] [place] OFFICE/OUTPATIENT ESTABLISHED LOW MDM 20 [facility] 2 Extremitieson 87-26-2631CTG/NCS BLE Moderate left chronic S1 radicNOMS HealthcareNOMS HealthcareNVC 9-10 Nerveson 21-96-8485XIP/NCS BLE Moderate left chronic S1 radicNOMS HealthcareNVC 9-10 NervesOrdered By: Den Chávez on 18-48-6088MEWM Healthcare Work Phone: aLL FOLIC ACIDon 36-75-7821VBAJHB2.3 ng/mLLow8.60 - 58.90 ng/mLNOMS HealthcareInterpretation and review of laboratory results AbnormalNOMS HealthcareCLINISYNCNOMS HealthcareMR head/brain wo/w conon 71-46-9560DX head/brain wo/w [address] [address] MRI Report Signed Patient: Diane Mendoza MR#: [id number] 98 : 1970 Acct:[id number] Age/Sex: 54 / F ADM Date: 03/02/24 Loc: MR Room: Type: [facility] Attending Dr: Milton Appiah DO Copies to: [...] Gini Solis M.D.03/02/2024 11:22 PM Dictation Location: [place] [address] Transcribed By: [facility] 03/02/242321 Dictated By: Gini Solis MD 03/02/242311 Signed By: 03/02/24 [facility] cervical spine wo [facility] 01-91-4196YW cervical spine wo [facility] [address] [place] [address] [place] [address] MRI Report Signed Patient: Diane Mendoza MR#: [id number] 98 : 1970 Acct:[id number] Age/Sex: 53 / F ADM Date: 01/13/24 Loc: MR Room: Type: [facility] Attending Dr: Milton Appiah DO Copies to: [...] Dank Camara M.D.01/13/2024 9:02 PM Dictation Location: [place] [address] Transcribed By: [facility] 01/13/242101 Dictated By: Dank Camara DO 01/13/242053 Signed By: 01/13/242101[facility] Physician GroupXR cerv spine AP/LAT/FLX/EXTon 67-11-2317SZ cerv spine AP/LAT/FLX/EXTPROM[facility] [place] [address] [place] [address] XRay Report Signed Patient: Diane Mendoza MR#: [id number] 98 : 1970 Acct:[id number] Age/Sex: 53 / F ADM Date: 10/27/23 Loc: XD Room: Type: [facility] Attending Dr: Loly Comer APRN Copies to: [...] Dank Camara M.D.10/27/2023 4:13 PM Dictation Location: [place] [address] Transcribed By: [facility] 10/27/23 1613 Dictated By: Dank Camara DO 10/27/23 1611 Signed By: 10/27/[address] [place] [address] Physician GroupMR Cervical spine WO contraston 80-79-6923[place]wiWil[place] [address] Magnetic Resonance Report Signed Patient: DIANE MENDOZA MR#: [id number] : 1970 Acct:[id number] Age/Sex: 53 / F ADM Date: 09/02/23 Loc: MRI Attending Dr: Carmela Lester NP Ordering Physician: Carmela Lester NP Date of Service: 09/02/23 Procedure(s): MR cervical spine wo con Accession Number(s): [id number] cc: Carmela Lester NP [place] [id number] Patient Name: DIANE MENDOZA MRN: [id number] date: 1970 Sex: F Assigned Patient Location: MRI Current Patient Location: Accession/Order Number: [id number] Exam Date: 09/02/2023 14:05 Report Date: 09/05/2023 [...] Signed By: 09/05/23 0654 DD/ 0652 TD/TT: Catalyst Unit Operator:SOMMERadiology, Radiologist, - 09/05/2023 [place] [address] Magnetic Resonance Report Signed Patient: DIANE MENDOZA MR#: [id number] : 1970 Acct:[id number] Age/Sex: 53 / F ADM Date: 09/02/23 Loc: MRI Attending Dr: Carmela Lester NP Ordering Physician: Carmela Lester NP Date of Service: 09/02/23 Procedure(s): MR cervical spine wo con Accession Number(s): [id number] cc: Carmela Lester NP [place] [address] Patient Name: DIANE MENDOZA MRN: [facility]:[id number] date: 1970 Sex: F Assigned Patient Location: MRI Current Patient Location: Accession/Order Number: [id number] Exam Date: 09/02/2023 14:05 Report Date: 09/05/2023 [...] M.D. Signed By: 09/05/2354 DD/ 1 TD/TT: Catalyst Unit Operator: LILY HealthcareRadiology Study observation (narrative)[facility] Cervical spine WO contrastOrdered By: Radiologist Radiology on [id number] Work Phone: Office Visiton [phone]-up [id number] Diane Mendoza 1970 F Date Provider Department Center 06/08/[address] [place] [address], [facility] Family History Problem Relation Age of Onset Coronary artery disease Father Family Status - Relation Status Age at Father Level of Service:[address] [place] OFFICE/OUTPATIENT [facility] 30 MINUTESNormal [facility]CA ECHO DOPPLER COMPLETEon [id number] [address] Cardiology Report Signed Patient: DIANE MENDOZA MR#: [id number] : 1970 Acct:[id number] Age/Sex: 53 / F ADM Date: 05/26/23 Loc: CARD Attending Dr: Carmela Lester NP Ordering Physician: Carmela Lester NP Date of Service: 05/26/23 Procedure(s): CA echo doppler complete Accession Number(s): [id number] cc: Carmela Lester NP Patient Name: DIANE MENDOZA MR#: [id number] : 1970 Exam Date: 05/26/2023 Ordering Doctor: DEREK Lester GEOPHYSICAL LABORATORY DIRECTOR ECHOCARDIOGRAM REPORT PROCEDURE: CA ECHO DOPPLER COMPLETE INDICATIONS: Uncontrolled hypertension, CABGx1, VA x 2, former smoker COMPARISON: None. DESCRIPTION: [...] not included)...TBHRadiology, Radiologist, MD - 05/27/2023 [place] [address] Cardiology Report Signed Patient: DIANE MENDOZA MR#: [id number] : 1970 Acct:[id number] Age/Sex: 53 / F ADM Date: 05/26/23 Loc: CARD Attending Dr: Carmela Lester NP Ordering Physician: Carmela Lester NP Date of Service: 05/26/23 Procedure(s): CA echo doppler complete Accession Number(s): [id number] cc: Carmela Lester NP Patient Name: DIANE MENDOZA MR#: [id number] : 1970 Exam Date: 05/26/2023 Ordering Doctor: DEREK Lester CNP ECHOCARDIOGRAM REPORT PROCEDURE: CA ECHO DOPPLER COMPLETE INDICATIONS: Uncontrolled hypertension, CABGx1, VA x 2, former smoker COMPARISON: None. DESCRIPTION: [...] Signed By: 05/27/23 144 DD/ 42 TD/TT: Catal[employer] Unit Operator: [facility] CenterRadiology Study observation (narrative)[facility] ECHO DOPPLER COMPLETEOrdered By: Radiologist Radiology on [id number] Work Phone: cbc AUTO DIFFon [id number] #0.1 103/ulNormal 0.0-0.1The [facility] HospitalComment on above:Performed By: #### CBC #### [facility] [address] [address] [address] Candy Resendizls/100 WBC (Bld)0.6 %Normal0.2-2.0[facility] Comment on above:Performed By: #### CBC #### [facility] [address] [address] [address] Candy Kamara #0.3 103/ulNormal0.0-0.7The [facility] HospitalComment on above: Performed By: #### CBC #### [facility] [address] [address] [address] Candy Villagranosinophils/100 WBC (Bld)2.8 %Normal0.9-7.0[facility] Comment on above:Performed By: #### CBC #### [facility] [address] [place] [address] Dr. Candy Villagranrythrocyte distribution width (RBC) [Ratio]11.9 %Uzjgxb41.0-15.0 The [facility] HospitalComment on above:Performed By: #### CBC #### [facility] [address] [place] [address] Dr. Candy CortezHematocrit (Bld) [Volume fraction]39.5 %Upoaih79.0-48.0The [facility] HospitalComment on above:Performed By: #### CBC #### [facility] [address] [place] [address] Dr. Candy CortezHemoglobin (Bld) [Mass/Vol]12.8 g/qCPyfwpr67.0-16.0The [facility] HospitalComment on above:Performed By: #### CBC #### [facility] [address] [place] [address] Dr. Candy Martines #0.04 10e3/ulCritically high0.00-0.03[facility] Comment on above:Performed By: #### CBC #### [facility] [address] [place] [address] Dr. Candy Martines %0.4 %Normal0.0-0.5The [facility] HospitalComment on above: Performed By: #### CBC #### [facility] [address] [place] [address] Dr. Candy NairH #3.2 103/ulNormal1.2-3.8The [facility] HospitalComment on above:Performed By: #### CBC #### [facility] [address] [place] [address] Dr. Candy Sunmphocytes/100 WBC (Bld)33.9 %Tctslu71.5-60.0The [facility] HospitalComment on above:Performed By: #### CBC #### [facility] [address] [place] [address] Dr. Candy Manzanares DIFF REQNONormalThe [facility] HospitalComment on above: Performed By: #### CBC #### [facility] [address] [place] [address] Dr. Candy Cervantes (RBC) [Entitic mass]31.3 hcOhumas46.7-34.0The [facility] HospitalComment on above:Performed By: #### CBC #### [facility] [address] [place] [address] Dr. Candy Cervantes (RBC) [Mass/Vol]32.4 g/hZIabbnk15.9-35.2The [facility] HospitalComment on above:Performed By: #### CBC #### [facility] [address] [place] [address] Dr. Candy Cervantes (RBC) [Entitic vol]96.6 qJQtpasa13.0-99.0The [facility] HospitalComment on above:Performed By: #### CBC #### [facility] [address] [place] [address] Dr. Candy Glass #0.8 103/ulNormal0.3-0.8The [facility] HospitalComment on above:Performed By: #### CBC #### [facility] [address] [place] [address] Dr. Candy Linkocytes/100 WBC (Bld)8.3 %Normal1.7-12.0[facility] Comment on above:Performed By: #### CBC #### [facility] [address] [place] [address] Dr. Candy Melendez #5.1 103/ulNormal1.4-6.5The [facility] HospitalComment on above:Performed By: #### CBC #### [facility] [address] [place] [address] Dr. Candy Moctezumautrophils/100 WBC (Bld)54.0 %Pbsbzb85.0-75.0The [facility] HospitalComment on above:Performed By: #### CBC #### [facility] [address] [place] [address] Dr. Candy Abel mean volume (Bld) [Entitic vol]11.6 fLNormal9.5-13.5The [facility] HospitalComment on above:Performed By: #### CBC #### [facility] [address] [place] [address] Dr. Candy TurpinT258 103/znVbvwnf544-027Gnx [facility] HospitalComment on above: Performed By: #### CBC #### [facility] [address] [place] [address] Dr. Candy CortezRBC4.09 106/ulCritically low4.20-5.40The [facility] HospitalComment on above:Performed By: #### CBC #### [facility] [address] [place] [address] Dr. Candy CortezWBC9.4 103/ulNormal4.0-11.0The [facility] HospitalComment on above: Performed By: #### CBC #### [facility] [address] [place] [address] Dr. Candy Castañeda T4on 72-25-3105Vyyl T4 [Mass/Vol]0.91 ng/dLNormal0.76-1.46 The [facility] HospitalCommymichigan medical center [facility] on above:Performed By: #### TSH, URIC, CMP, LIPID #### [facility] [address] [place] [address] Dr. Candy Mitchell 46-81-0411Svfd [Mass/Vol]106.0 ug/dSRwawyg63.0-170.0The [facility] HospitalComment on above:Performed By: #### TSH, URIC, CMP, LIPID #### [facility] [address] [place] [address] Dr. Candy CortezPROF 14(COMP METB)on 50-80-0973Nyvsoih [Mass/Vol]3.7 g/dLNormal 3.4-5.0The [facility] HospitalComment on above:Performed By: #### TSH, CMP #### [facility] [address] [address] [address] Candy CortezAlbumin/Globulin [Mass ratio]1.0 {ratio}NormalThe [facility] Hospitalment on above:Performed By: #### TSH, CMP #### [facility] [address] [address] [address] Candy Figueredo [Catalytic activity/Vol]84 U/TMfkjjz22-704Mok [facility] HospitalComment on above:Performed By: #### TSH, CMP #### [facility] [address] [address] [address] Candy Yap [Catalytic activity/Vol]36 U/ROofzeh96-70Wfp [facility] Hospitalment on above:Performed By: #### TSH, CMP #### [facility] [address] [address] [address] Candy Camaraon gap [Moles/Vol]11.6 mmol/LNormalThe [facility] Comment on above:Performed By: #### TSH, CMP #### [facility] [address] [address] [address] Candy Sparks [Catalytic activity/Vol]30 U/LRfqnrf72-90Nzn [facility] on above:Performed By: #### TSH, CMP #### [facility] [address] [address] [address] Candy CortezBilirubin [Mass/Vol]0.4 mg/dLNormal0.2-1.0[facility] Comment on above:Performed By: #### TSH, CMP #### [facility] [address] [address] [address] Candy CortezCalcium [Mass/Vol]9.4 mg/dLNormal8.5-10.1The [facility] Comment on above:Performed By: #### TSH, CMP #### [facility] [address] [address] [address] Candy CortezChloride [Moles/Vol]105 mmol/ZRmtque10-192Xba [facility] Comment on above:Performed By: #### TSH, CMP #### [facility] [address] [address] [address] Candy CortezCO2 [Moles/Vol]29.2 mmol/TLdydxp14.0-32.0The [facility] Comment on above:Performed By: #### TSH, CMP #### [facility] [address] [address] [address] Candy CortezCreatinine [Mass/Vol]0.78 mg/dLNormal0.55-1.02[facility] CenterComment on above:Performed By: #### TSH, CMP #### [facility] [address] [place] [address] Dr. Candy VillagranGFR-AF MALAWIAN>60Normal>=60The [facility] HospitalComment on above:Performed By: #### TSH, CMP #### [facility] [address] [address] [address] Candy King-NON AF MALAWIAN>60Normal>=60The [facility] HospitalComment on above:Performed By: #### TSH, CMP #### [facility] [address] [address] [address] Candy CortezGlobulin (S) [Mass/Vol]3.8 g/dLNormalThe [facility] HospitalComment on above:Performed By: #### TSH, CMP #### [facility] [address] [address] [address] Candy CortezGlucose [Mass/Vol]95 mg/fBNlqajg01-011TnnOhio State University [facility] Comment on above:Performed By: #### TSH, CMP #### [facility] [address] [address] [address] Candy CortezPotassium [Moles/Vol]4.8 mmol/LNormal3.5-5.1The [facility] Comment on above:Performed By: #### TSH, CMP #### [facility] [address] [address] [address] Candy CortezProtein [Mass/Vol]7.5 g/dLNormal6.4-8.2The [facility] Comment on above:Performed By: #### TSH, CMP #### [facility] [address] [address] [address] Candy Loeraum [Moles/Vol]141 mmol/HWuyzpu269-183Lwo [facility] Comment on above:Performed By: #### TSH, CMP #### [facility] [address] [place] [address] Dr. Candy Miranda nitrogen [Mass/Vol]13.0 mg/dLNormal7.0-18.0The [facility] HospitalComment on above:Performed By: #### TSH, CMP #### [facility] [address] [place] [address] Dr. Candy Miranda nitrogen/Creatinine [Mass ratio]16.7 mg/mgNoalThAccess Hospital DaytonComment on above:Performed By: #### TSH, CMP #### [facility] [address] [place] [address] Dr. Candy Muñoz 72-05-7364GOI4.818 uIU/mLNormal0.358-3.740The [facility] HospitalComment on above:Performed By: #### TSH, CMP #### [facility] [address] [place] [address] Dr. Candy Block RANDOM W/MICROSCOPICon 38-35-2735MGPUAGUUOYOO SEENNormalNONE SEENOhio State University Wexner Medical CenterComment on above:Performed By: #### UAMIC #### [facility] [address] [place] [address] Dr. Candy Luciano Ql (U)NegativeNormalNEGATIVEOhio State University [facility] Comment on above:Performed By: #### UAMIC #### [facility] [address] [place] [address] Dr. Candy Anna SEENNormalNONE SEENOhio State University Wexner Medical CenterComment on above:Performed By: #### UAMIC #### [facility] [address] [place] [address] Dr. Candy Meeksarity (U)CLEARNormalCLEARThe [facility] HospitalComment on above: Performed By: #### UAMIC #### [facility] [address] [address] [address] Candy Mantilla (U)LT. YELLOWNormalYELLOWOhio State University Wexner Medical CenterComment on above:Performed By: #### UAMIC #### [facility] [address] [address] [address] Candy CortezCrystals LM Nom (Urine sed)NONE SEENNormalNONE SEENOhio State University Wexner Medical CenterComment on above:Performed By: #### UAMIC #### [facility] [address] [address] [address] Gupta ChangEpithelial cells LM Ql (Urine sed)RARENormalNONE SEEN /RAREOhio State University Wexner Medical CenterComment on above:Performed By: #### UAMIC #### [facility] [address] [address] [address] Candy CortezGlucose Ql (U)NegativeNormalNEGATIVEOhio State University Wexner Medical CenterComment on above:Performed By: #### UAMIC #### [facility] [address] [address] [address] Candy CortezHemoglobin Ql (U)NegativeNormalNEGATIVENewark Hospital on above:Performed By: #### UAMIC #### [facility] [address] [address] [address] Candy CortezKetones Ql (U)NegativeNormalNEGATIVEOhio State University Wexner Medical CenterComment on above:Performed By: #### UAMIC #### [facility] [address] [address] [address] Candy CortezLEUKOCYTESNegativeNormalNEGATIVEOhio State University Wexner Medical CenterComment on above:Performed By: #### UAMIC #### [facility] [address] [address] [address] Candy CortezMUCOUSNONE SEENNormalNONE SEENOhio State University Wexner Medical CenterComment on above:Performed By: #### UAMIC #### [facility] [address] [address] [address] Candy Toney Ql (U)NegativeNormalNEGATIVEThe [facility] HospitalComment on above:Performed By: #### UAMIC #### [facility] [address] [place] [address] Dr. Candy CortezpH (U)7.0 [pH]Normal5-9The [facility] HospitalComment on above: Performed By: #### UAMIC #### [facility] [address] [place] [address] Dr. Candy CortezWxalzFSD6-1Eztpyq9-9Wwx [facility] HospitalComment on above:Performed By: #### UAMIC #### [facility] [address] [place] [address] Dr. Candy CortezSPEC GRAVITY<=1.097Ggqzrkgc8.005-<=1.025The [facility] Comment on above:Performed By: #### UAMIC #### [facility] [address] [place] [address] Dr. Candy CortezUA PROTEINNegativeNormalNEGATIVE/ TRACEThe [facility] Comment on above:Performed By: #### UAMIC #### [facility] [address] [place] [address] Dr. Candy Hutchisonbilinogen Qn (U)0.2 {Nicko'U}/dLNormal0.2 - 1.0The [facility] HospitalComment on above:Performed By: #### UAMIC #### [facility] [address] [place] [address] Dr. Candy CortezWBC0-2AbnormalNONE SEENThe [facility] HospitalComment on above: Performed By: #### UAMIC #### [facility] [address] [place] [address] Dr. Candy CortezVITAMIN B12on 41-43-4873Bicjkhrbb (Vitamin B12) [Mass/Vol]201.0 pg/rHIlxcup978.0-986.0The [facility] HospitalComment on above:Performed By: #### TSH, URIC, CMP, LIPID #### [facility] [address] [place] [address] Dr. Candy CortezVITAMIN D 25 OHon 86-07-1762RGH D 25-OH14.6 ng/mLNormalOhio State University Wexner Medical CenterComment on above:Performed By: #### TSH, URIC, CMP, LIPID #### [facility] [address] [address] [address] Candy BACONSEE [facility] GeneralComment on above: Result Comment: <20 ng/mL Vit D deficient 20 - <30 ng/mL Vit D insufficient 30 - 100 ng/mL Vit D sufficient >100 ng/mL Potential ToxicityPerformed By: #### TSH, URIC, CMP, LIPID #### [facility] [address] [place] [address] Dr. Candy DavisID PROFILEon 74-22-7082TGXK-HDL RATIO NORMSEE [facility] GeneralCommymichigan [facility] on above:Result Comment: 3.3 - 4.4 LOW RISK 4.4 - 7.1 AVERAGE RISK 7.1 - 11.0 MODERATE RISK >11.0 HIGH RISKPerformed By: #### TSH, URIC, CMP, LIPID #### [facility] [address] [place] [address] Dr. Candy Pedrozaesterol [Mass/Vol]162 mg/dLNormal<=200[facility] Comment on above:Performed By: #### TSH, URIC, CMP, LIPID #### [facility] [address] [address] [address] Candy CortezCholesterol in HDL [Mass/Vol]74 mg/dLCritically vdag50-21OuyOhio State University Wexner Medical CenterComment on above:Performed By: #### TSH, URIC, CMP, LIPID #### [facility] [address] [address] [address] Candy CortezCholesterol in LDL [Mass/Vol]54.8 mg/dLBlanchard Valley Health SystemCommymichigan medical center [place] on above:Performed By: #### TSH, URIC, CMP, LIPID #### [facility] [address] [place] [address] Dr. Candy Pedrozaestertaylor.total/Cholesterol in HDL [Mass ratio]2.2 {ratio} NormalThe Yves HospitalComment on above:Performed By: #### TSH, URIC, CMP, LIPID #### [facility] [address] [address] [address] Candy Rondon NORMAL> or = 60 mg/dl - LOW CARDIOVASCULAR RISK <40 mg/dl - HIGH CARDIOVASCULAR RISKOhioHealth Van Wert Hospital on above:Performed By: #### TSH, URIC, CMP, LIPID #### [facility] [address] [address] [address] Candy Starks CALC NORMALSEE BELOWBlanchard Valley Health SystemCommymichigan medical center [facility] on above:Result Comment: <100 mg/dl OPTIMAL 100 - 129 mg/dl NEAR OR ABOVE OPTIMAL 130 - 159 mg/dl BORDERLINE HIGH 160 - 189 mg/dl HIGH >190 mg/dl VERY HIGH Performed By: #### TSH, URIC, CMP, LIPID #### [facility] [address] [place] [address] Dr. Candy CortezTriglyceride [Mass/Vol]166 mg/dLCritically high<=150The [facility] on above:Performed By: #### TSH, URIC, CMP, LIPID #### [facility] [address] [address] [address] Candy RodriguezLDL CALC33.2 mg/dLOhioHealth Van Wert Hospital on above: Performed By: #### TSH, URIC, CMP, LIPID #### [facility] [address] [address] [address] Candy Woodward 55-84-4258LYV [Catalytic activity/Vol]32 U/VBrouqq83-39Uzv [facility] on above:Performed By: #### TSH, URIC, CMP, LIPID #### [facility] [address] [address] [address] Candy Musa 63-20-4721WKI [Catalytic activity/Vol]52 U/CMqegtq08-04Evc [facility] on above:Performed By: #### TSH, URIC, CMP, LIPID #### [facility] [address] [address] [address] Candy CortezLIPID PROFILEon 86-36-2250CPVA-HDL RATIO NORMSAultman HospitalComment on above:Result Comment: 3.3 - 4.4 LOW RISK 4.4 - 7.1 AVERAGE RISK 7.1 - 11.0 MODERATE RISK >11.0 HIGH RISKPerformed By: #### TSH, URIC, CMP, LIPID #### [facility] [address] [place] [address] Dr. Candy CortezCholesterol [Mass/Vol]178 mg/dLNormal<=200The [facility] Comment on above:Performed By: #### TSH, URIC, CMP, LIPID #### [facility] [address] [place] [address] Dr. Candy CortezCholesterol in HDL [Mass/Vol]80 mg/dLCritically yzik23-76NpgOhio State University Wexner Medical CenterComment on above:Performed By: #### TSH, URIC, CMP, LIPID #### [facility] [address] [place] [address] Dr. Candy Pedrozaesterol in LDL [Mass/Vol]43.4 mg/dLBlanchard Valley Health SystemComment on above:Performed By: #### TSH, URIC, CMP, LIPID #### [facility] [address] [place] [address] Dr. Candy Chamorro.total/Cholesterol in HDL [Mass ratio]2.2 {ratio} NormalOhio State University Wexner Medical CenterCommymichigan medical center [facility] on above:Performed By: #### TSH, URIC, CMP, LIPID #### [facility] [address] [place] [address] Dr. Candy Rondon NORMAL> or = 60 mg/dl - LOW CARDIOVASCULAR RISK <40 mg/dl - HIGH CARDIOVASCULAR RISKBlanchard Valley Health SystemComment on above:Performed By: #### TSH, URIC, CMP, LIPID #### [facility] [address] [place] [address] Dr. Candy Starks CALC NORMALSEE [facility] GeneralCommymich[facility] medical [facility] on above:Result Comment: <100 mg/dl OPTIMAL 100 - 129 mg/dl NEAR OR ABOVE OPTIMAL 130 - 159 mg/dl BORDERLINE HIGH 160 - 189 mg/dl HIGH >190 mg/dl VERY HIGH Performed By: #### TSH, URIC, CMP, LIPID #### [facility] [address] [place] [address] Dr. Candy CortezTriglyceride [Mass/Vol]273 mg/dLCritically high<=150The [facility] HospitalComment on above:Performed By: #### TSH, URIC, CMP, LIPID #### [facility] [address] [place] [address] Dr. Candy CortezVLDL CALC54.6 mg/dLNormalThe [facility] HospitalComment on above: Performed By: #### TSH, URIC, CMP, LIPID #### [facility] [address] [place] [address] Dr. Candy Campbell AUTO DIFFon [id number] #0.1 103/ulNormal0.0-0.1The [facility] HospitalComment on above:Performed By: #### CBC #### [facility] [address] [place] [address] Dr. Candy CortezBasophils/100 WBC (Bld)1.2 %Normal0.2-2.0[facility] Comment on above:Performed By: #### CBC #### [facility] [address] [place] [address] Dr. Candy Kamara #0.2 103/ulNormal0.0-0.7The [facility] HospitalComment on above: Performed By: #### CBC #### [facility] [address] [place] [address] Dr. Candy Villagranosinophils/100 WBC (Bld)2.8 %Normal0.9-7.0The [facility] Comment on above:Performed By: #### CBC #### [facility] [address] [place] [address] Dr. Candy Villagranrythrocyte distribution width (RBC) [Ratio]12.2 %Lxkrex73.0-15.0 The [facility] HospitalComment on above:Performed By: #### CBC #### [facility] [address] [place] [address] Dr. Candy CortezHematocrit (Bld) [Volume fraction]41.0 %Umbyal13.0-48.0The [facility] HospitalComment on above:Performed By: #### CBC #### [facility] [address] [place] [address] Dr. Candy Loooglobin (Bld) [Mass/Vol]13.6 g/iDGhgnpc80.0-16.0The [facility] HospitalComment on above:Performed By: #### CBC #### [facility] [address] [place] [address] Dr. Candy Martines #0.00 10e3/ulNormal0.00-0.03The [facility] HospitalComment on above:Performed By: #### CBC #### [facility] [address] [place] [address] Dr. Candy CortezIG %0.0 %Normal0.0-0.5The [facility] HospitalComment on above: Performed By: #### CBC #### [facility] [address] [place] [address] Dr. Candy Bragg #2.7 103/ulNormal1.2-3.8The [facility] HospitalComment on above:Performed By: #### CBC #### [facility] [address] [place] [address] Dr. Candy Sunmphocytes/100 WBC (Bld)47.5 %Lmgozu39.5-60.0The [facility] HospitalComment on above:Performed By: #### CBC #### [facility] [address] [place] [address] Dr. Candy CortezMANUAL DIFF REQNONormalThe [facility] HospitalComment on above: Performed By: #### CBC #### [facility] [address] [place] [address] Dr. Candy Black (RBC) [Entitic mass]32.5 ssVqspgz42.7-34.0The [facility] HospitalComment on above:Performed By: #### CBC #### [facility] [address] [place] [address] Dr. Candy Cervantes (RBC) [Mass/Vol]33.2 g/uDFzqymr04.9-35.2The [facility] HospitalComment on above:Performed By: #### CBC #### [facility] [address] [address] [address] Candy CervantesV (RBC) [Entitic vol]97.9 pUAjacjn32.0-99.0The [facility] HospitalComment on above:Performed By: #### CBC #### [facility] [address] [place] [address] Dr. Candy Glass #0.5 103/ulNormal0.3-0.8The [facility] HospitalComment on above:Performed By: #### CBC #### [facility] [address] [place] [address] Dr. Candy Linkocytes/100 WBC (Bld)8.4 %Normal1.7-12.0The [facility] Comment on above:Performed By: #### CBC #### [facility] [address] [place] [address] Dr. Candy Melendez #2.3 103/ulNormal1.4-6.5The [facility] HospitalComment on above:Performed By: #### CBC #### [facility] [address] [place] [address] Dr. Candy Moctezumautrophils/100 WBC (Bld)40.1 %Critically low43.0-75.0The [facility] HospitalComment on above:Performed By: #### CBC #### [facility] [address] [place] [address] Dr. Candy Joyalet mean volume (Bld) [Entitic vol]11.5 fLNormal9.5-13.5The [facility] HospitalComment on above:Performed By: #### CBC #### [facility] [address] [place] [address] Dr. Candy CortezPLT305 103/cwKyzwao378-071Pkq [facility] HospitalComment on above: Performed By: #### CBC #### [facility] [address] [place] [address] Dr. Candy CortezRBC4.19 106/ulCritically low4.20-5.40The [facility] HospitalComment on above:Performed By: #### CBC #### [facility] [address] [place] [address] Dr. Candy CortezWBC5.7 103/ulNormal4.0-11.0The [facility] HospitalComment on above: Performed By: #### CBC #### [facility] [facility] [address] [place] [address] Dr. Candy CortezFREE T4on [id number] T4 [Mass/Vol]0.78 ng/dLNormal0.76-1.46 The [facility] HospitalComment on above:Performed By: #### TSH, URIC, CMP, LIPID #### [facility] [address] [place] [address] Dr. Candy DavisID PROFILEon [id number]-HDL RATIO NORMSEE BELOWNoSt. Vincent HospitalComment on above:Result Comment: 3.3 - 4.4 LOW RISK 4.4 - 7.1 AVERAGE RISK 7.1 - 11.0 MODERATE RISK >11.0 HIGH RISKPerformed By: #### TSH, URIC, CMP, LIPID #### [facility] [address] [place] [address] Dr. Candy CortezCholesterol [Mass/Vol]167 mg/dLNormal<=200[facility] Comment on above:Performed By: #### TSH, URIC, CMP, LIPID #### [facility] [address] [place] [address] Dr. Candy Pedrozaesterol in HDL [Mass/Vol]64 mg/dLCritically aisf18-35Ats [facility] HospitalComment on above:Performed By: #### TSH, URIC, CMP, LIPID #### [facility] [address] [place] [address] Dr. Candy Pedrozaesterol in LDL [Mass/Vol]43.6 mg/dLBlanchard Valley Health SystemComment on above:Performed By: #### TSH, URIC, CMP, LIPID #### [facility] [address] [address] [address] Candy CortezCholesterol.total/Cholesterol in HDL [Mass ratio]2.6 {ratio} NormalTrumbull Regional Medical Center on above:Performed By: #### TSH, URIC, CMP, LIPID #### [facility] [address] [address] [address] Candy Rondon NORMAL> or = 60 mg/dl - LOW CARDIOVASCULAR RISK <40 mg/dl - HIGH CARDIOVASCULAR RISKOhioHealth Van Wert [facility] on above:Performed By: #### TSH, URIC, CMP, LIPID #### [facility] [address] [address] [address] Candy CortezLDL CALC NORMALSEE BELOWBlanchard Valley Health SystemCommymichigan medical center alpen[facility] on above:Result Comment: <100 mg/dl OPTIMAL 100 - 129 mg/dl NEAR OR ABOVE OPTIMAL 130 - 159 mg/dl BORDERLINE HIGH 160 - 189 mg/dl HIGH >190 mg/dl VERY HIGH Performed By: #### TSH, URIC, CMP, LIPID #### [facility] [address] [address] [address] Candy CortezTriglyceride [Mass/Vol]297 mg/dLCritically high<=150[facility] on above:Performed By: #### TSH, URIC, CMP, LIPID #### [facility] [address] [address] [address] Candy RodriguezLDL CALC59.4 mg/dLNoTrumbull Memorial Hospital on above: Performed By: #### TSH, URIC, CMP, LIPID #### [facility] [address] [address] [address] Candy CortezPROF 14(COMP METB)on [id number] [Mass/Vol]3.6 g/dLNormal 3.4-5.0[facility] on above:Performed By: #### TSH, URIC, CMP, LIPID #### [facility] [address] [address] [address] Candy CortezAlbumin/Globulin [Mass ratio]1.0 {ratio}NormalOhio State University Wexner Medical CenterComment on above:Performed By: #### TSH, URIC, CMP, LIPID #### [facility] [address] [address] [address] Candy Figueredo [Catalytic activity/Vol]79 U/OPcvqyv11-323Hkw [facility] HospitalComment on above:Performed By: #### TSH, URIC, CMP, LIPID #### [facility] [address] [place] [address] Dr. Candy Yap [Catalytic activity/Vol]23 U/WXlewns95-33Xcq [facility] HospitalComment on above:Performed By: #### TSH, URIC, CMP, LIPID #### [facility] [address] [place] [address] Dr. Candy Borjas gap [Moles/Vol]9.7 mmol/LNormalThe [facility] HospitalComment on above:Performed By: #### TSH, URIC, CMP, LIPID #### [facility] [address] [place] [address] Dr. Candy Sparks [Catalytic activity/Vol]20 U/IIwcivi77-88Rwa [facility] HospitalComment on above:Performed By: #### TSH, URIC, CMP, LIPID #### [facility] [address] [place] [address] Dr. Candy CortezBilirubin [Mass/Vol]0.4 mg/dLNormal0.2-1.0[facility] Comment on above:Performed By: #### TSH, URIC, CMP, LIPID #### [facility] [address] [place] [address] Dr. Candy CortezCalcium [Mass/Vol]9.1 mg/dLNormal8.5-10.1[facility] Comment on above:Performed By: #### TSH, URIC, CMP, LIPID #### [facility] [address] [place] [address] Dr. Candy CortezChloride [Moles/Vol]103 mmol/BQmusal85-725Yut [facility] Comment on above:Performed By: #### TSH, URIC, CMP, LIPID #### [facility] [address] [address] [address] Candy CortezCO2 [Moles/Vol]29.0 mmol/MSrygis14.0-32.0[facility] Comment on above:Performed By: #### TSH, URIC, CMP, LIPID #### [facility] [address] [address] [address] Candy CortezCreatinine [Mass/Vol]0.72 mg/dLNormal0.55-1.02The [facility] HospitalComment on above:Performed By: #### TSH, URIC, CMP, LIPID #### [facility] [address] [place] [address] Dr. Candy VillagranGFR-AF MALAWIAN>60Normal>=60The [facility] HospitalComment on above:Performed By: #### TSH, URIC, CMP, LIPID #### [facility] [address] [place] [address] Dr. Candy VillagranGFR-NON AF MALAWIAN>60Normal>=60The [facility] HospitalComment on above:Performed By: #### TSH, URIC, CMP, LIPID #### [facility] [address] [place] [address] Dr. Candy CortezGlobulin (S) [Mass/Vol]3.7 g/dLNormalThe [facility] HospitalComment on above:Performed By: #### TSH, URIC, CMP, LIPID #### [facility] [address] [place] [address] Dr. Candy CortezGlucose [Mass/Vol]93 mg/dNZniyqt51-176Sfg [facility] Comment on above:Performed By: #### TSH, URIC, CMP, LIPID #### [facility] [address] [place] [address] Dr. Candy CortezPotassium [Moles/Vol]4.7 mmol/LNormal3.5-5.1[facility] Comment on above:Performed By: #### TSH, URIC, CMP, LIPID #### [facility] [address] [place] [address] Dr. Candy CortezProtein [Mass/Vol]7.3 g/dLNormal6.4-8.2[facility] Comment on above:Performed By: #### TSH, URIC, CMP, LIPID #### [facility] [address] [address] [address] Candy Loeraum [Moles/Vol]137 mmol/BQkpgsw157-212Xmu [facility] Comment on above:Performed By: #### TSH, URIC, CMP, LIPID #### [facility] [address] [place] [address] Dr. Candy Miranda nitrogen [Mass/Vol]12.0 mg/dLNormal7.0-18.0The [facility] HospitalComment on above:Performed By: #### TSH, URIC, CMP, LIPID #### [facility] [address] [place] [address] Dr. Candy Miranda nitrogen/Creatinine [Mass ratio]16.7 mg/mgNormalThe [facility] HospitalComment on above:Performed By: #### TSH, URIC, CMP, LIPID #### [facility] [address] [place] [address] Dr. Candy Muñoz 25-95-6935BLW8.748 uIU/mLNormal0.358-3.740The [facility] HospitalComment on above:Performed By: #### TSH, URIC, CMP, LIPID #### [facility] [address] [place] [address] Dr. Candy Block RANDOM W/MICROSCOPICon 76-33-5018YLBCKOPGTKVF SEENNormalNONE SEENOhio State University Wexner Medical CenterComment on above:Performed By: #### UAMIC #### [facility] [address] [place] [address] Dr. Candy Zhangirubin Ql (U)NegativeNormalNEGATIVEOhio State University [facility] Medical [facility] Comment on above:Performed By: #### UAMIC #### [facility] [address] [place] [address] Dr. Candy CortezCASTNONE SEENNormalNONE SEENOhio State University Wexner Medical CenterComment on above:Performed By: #### UAMIC #### [facility] [address] [place] [address] Dr. Candy Pathak (U)CLEARNormalCLEAROhio State University Wexner Medical CenterComment on above: Performed By: #### UAMIC #### [facility] [address] [address] [address] Candy Mantilla (U)LT. YELLOWNormalYELLOWOhio State University Wexner Medical CenterComment on above:Performed By: #### UAMIC #### [facility] [address] [address] [address] Candy CortezCrystals LM Nom (Urine sed)NONE SEENNormalNONE SEENOhio State University Wexner Medical CenterComment on above:Performed By: #### UAMIC #### [facility] [address] [address] [address] Gupta ChangEpithelial cells LM Ql (Urine sed)RARENormalNONE SEEN /RAREOhio State University Wexner Medical CenterComment on above:Performed By: #### UAMIC #### [facility] [address] [place] [address] Dr. Candy CortezGlucose Ql (U)NegativeNormalNEGATIVEOhio State University Wexner Medical CenterComment on above:Performed By: #### UAMIC #### [facility] [address] [place] [address] Dr. Candy CortezHemoglobin Ql (U)NegativeNormalNEGATIVENewark Hospital on above:Performed By: #### UAMIC #### [facility] [address] [place] [address] Dr. Candy CortezKetones Ql (U)NegativeNormalNEGATIVEOhio State University Wexner Medical CenterComment on above:Performed By: #### UAMIC #### [facility] [address] [address] [address] Candy CortezLEUKOCYTESNegativeNormalNEGATIVEOhio State University Wexner Medical CenterComment on above:Performed By: #### UAMIC #### [facility] [address] [place] [address] Dr. Candy CortezMUCOUSTRACEAbnormalNONE SEENOhio State University Wexner Medical CenterComment on above:Performed By: #### UAMIC #### [facility] [address] [place] [address] Dr. Candy Cárdenastrblanka Ql (U)NegativeNormalNEGATIVEThe [facility] HospitalComment on above:Performed By: #### UAMIC #### [facility] [address] [place] [address] Dr. Candy CortezpH (U)7.0 [pH]Normal5-9The [facility] HospitalComment on above: Performed By: #### UAMIC #### [facility] [address] [place] [address] Dr. Candy CortezRBCNONE SEENAbnormal0-2The [facility] HospitalComment on above: Performed By: #### UAMIC #### [facility] [address] [place] [address] Dr. Candy CortezSPEC GRAVITY1.468Jmlxzx5.005-<=1.025The [facility] HospitalComment on above:Performed By: #### UAMIC #### [facility] [address] [place] [address] Dr. Candy Block PROTEINNegativeNormalNEGATIVE/ TRACEThe [facility] Comment on above:Performed By: #### UAMIC #### [facility] [address] [place] [address] Dr. Candy Hutchisonbilinogen Qn (U)0.2 {Nicko'U}/dLNormal0.2 - 1.0The [facility] HospitalComment on above:Performed By: #### UAMIC #### [facility] [address] [place] [address] Dr. Candy CortezWBCNONE SEENNormalNONE SEENThe [facility] HospitalComment on above: Performed By: #### UAMIC #### [facility] [address] [place] [address] Dr. Candy CortezURIC ACID SERUMon [id number] [Mass/Vol]3.1 mg/dLNormal 2.6-6.0The [facility] HospitalComment on above:Performed By: #### TSH, URIC, CMP, LIPID #### [facility] [address] [place] [address] Dr. Candy Cortez Vital Signs Date TimeVital SignValuePerforming DzyofhdcdDjvppwbm34-27-7899 14:10-0400Body olejuw881.56 cmLisa Aichholz MECHANICAL ENGINEERING DRAFTSPERSON-C Work Phone: [phone]10-01-2025 14:10-0400 Body mass index (BMI) [Ratio]23.5 kg/m2Lisa Aichholz MECHANICAL ENGINEERING DRAFTSPERSON-C Work Phone: [phone]10-01-2025 14:10-0400 Body .1 [degF]Carmela Aichholz MECHANICAL ENGINEERING DRAFTSPERSON-C Work Phone: [phone] [place], [place] 3234410-01-2025 14:10-0400 Body arlfwl25.14 kgLisa Aichholz MECHANICAL ENGINEERING DRAFTSPERSON-C Work Phone: [phone] [place], [place] 3234410-01-2025 14:10-0400 Diastolic blood zyudkjyg864 mm[Hg]Carmela Aichholz MECHANICAL ENGINEERING DRAFTSPERSON-C Work Phone: [phone]10-01-2025 14:10-0400 Heart rate78 /minLisa Aichholz MECHANICAL ENGINEERING DRAFTSPERSON-C Work Phone: [phone] [address]10-01-2025 14:10-0400 Respiratory rate18 /minLisa Aichholz MECHANICAL ENGINEERING DRAFTSPERSON-C Work Phone: [phone] [place], [place] 5754410-01-2025 14:10-0400 SaO2% (BldA) [Mass fraction]99 %Carmela Aichholz MECHANICAL ENGINEERING DRAFTSPERSON-C Work Phone: [phone] [address]10-01-2025 14:10-0400 Systolic blood orafgygi666 mm[Hg]Carmela Aichholz MECHANICAL ENGINEERING DRAFTSPERSON-C Work Phone: [phone]07-01-2025 14:19-0400 Body mass index (BMI) [Ratio]24 kg/m2Lisa Aichholz MECHANICAL ENGINEERING DRAFTSPERSON Work Phone: [facility] CenterWjvvfoezsh09-41-0322 14:19-0400Body temperature 98.49 [degF]Carmela Lester MECHANICAL ENGINEERING DRAFTSPERSON Work Phone: [facility] CenterHslqqtxyvh26-13-6308 14:19-0400Body pauoly98.41 kgCarmela Lester MECHANICAL ENGINEERING DRAFTSPERSON Work Phone: [facility] CenterEoctywptdm05-29-7391 14:19-0400Diastolic blood ewfsqlbb04 mm[Hg]Carmela Lester MECHANICAL ENGINEERING DRAFTSPERSON Work Phone: [facility] CenterKjgklwwmoo67-20-7157 14:19-0400Heart rate78 /min Carmela Lester MECHANICAL ENGINEERING DRAFTSPERSON Work Phone: [facility] CenterWfxwxmfcpk71-84-6405 14:19-0400Respiratory rate18 /minCarmela Lester MECHANICAL ENGINEERING DRAFTSPERSON Work Phone: [facility] CenterPsaeqsiqkr93-55-1031 14:19-3871MsN5% (BldA) [Mass fraction]98 %Carmela Lester MECHANICAL ENGINEERING DRAFTSPERSON Work Phone: [facility] CenterLqlbhjfazk35-59-8752 14:19-0400Systolic blood ueccitsu250 mm[Hg]Carmela Lester MECHANICAL ENGINEERING DRAFTSPERSON Work Phone: [facility] CenterAxayjxhrje19-62-2777 15:21-0500Body bggkas835.6 cmNicole Saira DO Work Phone: [facility] CenterNcsundqinr08-89-2497 15:21-0500Body mass index (BMI) [Ratio]27.33 kg/d7Pifjtz Saira DO Work Phone: [facility] CenterPjjrlaehpr60-34-7659 15:21-0500Body zmvztu93.21 kgNicole Saira DO Work Phone: [address] [address]Ywpwxzrsli21-06-9204 15:21-0500Diastolic blood bdxuegoa32 mm[Hg]Den Saira DO Work Phone: [facility] CenterAqplmrllte48-43-4867 15:21-0500Heart rate78 /min Den Saira DO Work Phone: [facility] CenterWfisuxomsq18-21-9251 15:21-8866FyP0% (BldA) [Mass fraction]98 %Den Saira DO Work Phone: [facility] CenterSpkmqrvzlp79-94-2332 15:21-0500Systolic blood cgavyqmv784 mm[Hg]Den Saira DO Work Phone: [facility] CenterYmugxrbffh37-55-3650 10:52-0500Body alypyg104.56 cmLisa Aichholz Work Phone: [phone] [place], [place] 3234411-04-2024 10:52-0500 Body mass index (BMI) [Ratio]27 kg/m2Lisa Aichholz Work Phone: [phone] [place], [place] 3234411-04-2024 10:52-0500 Body .44 kgLisa Aichholz Work Phone: [phone] [place], [place] 3234410-14-2024 10:03-0400 Body igtscs020.56 cmLisa Aichholz Work Phone: [phone] [place], [place] 3234410-14-2024 10:03-0400 Body mass index (BMI) [Ratio]26.9 kg/m2Lisa Aichholz Work Phone: [phone] [place], [place] 3234410-14-2024 10:03-0400 Body itrpky86.32 kgLisa Aichholz Work Phone: [phone] [place], [place] 3234409-19-2024 12:58-0400 Body .56 cmLisa Aichholz Work Phone: [phone] [place], [place] 3234409-19-2024 12:58-0400 Body mass index (BMI) [Ratio]27 kg/m2Lisa Aichholz Work Phone: [phone] [place], [place] 3234409-19-2024 12:58-0400 Body lwxses32.38 kgLisa Aichholz Work Phone: [phone] [place], [place] 3234408-15-2024 13:18-0400 Body rzwyff94.76 kgLisa Aichholz Work Phone: [facility]07-25-2024 14:11-0400 Body ixxwwo02.76 kgOhiohealth Doctors Hospital Encounters Encounter DateEncounter TypeCare ProviderFacilityStart: 12-12-2024 End: 18-55-2054anbrlzkvmnKymb J Aichholz MECHANICAL ENGINEERING DRAFTSPERSON-C Work Phone: [facility] Work Phone: Start: 12-12-2024 End: 43-00-2946Iklqcwi encounter procedureLisa Karlene Lester MECHANICAL ENGINEERING DRAFTSPERSON-C-[facility] Work Phone: Start: 10-17-2024 End: 18-30-3821XdzlevOcpq Aichholz MECHANICAL ENGINEERING DRAFTSPERSON Work Phone: noms CWM FMComment on above:Bilateral hand painStart: 10-16-2024 End: 61-61-0451AdkckkIbjh Aichholz MECHANICAL ENGINEERING DRAFTSPERSON Work Phone: noms CWM FMComment on above:Bilateral hand pain (Primary Dx)Start: 10-10-2024 End: 84-89-0963Ynqoncohz Result EncounterLisa Popeholz MECHANICAL ENGINEERING DRAFTSPERSON Work Phone: noms External Department UnsolicitedStart: 10-10-2024 End: 54-01-1574Ujowsgbai Result EncounterLisa Popeholz MECHANICAL ENGINEERING DRAFTSPERSON Work Phone: noms External Department UnsolicitedStart: 09-11-2024 End: 79-96-4864Rndyea outpatient visit 25 minutesLisa Rossz MECHANICAL ENGINEERING DRAFTSPERSON Work Phone: noms CWM FMComment on above:Primary hypertension (Primary Dx); Coronary artery disease involving [place] coronary artery of [place] heart without angina pectoris ; Hypothyroidism (acquired) ; Cigarette nicotine dependence without complication; Mixed hyperlipidemia ; Essential hypertension ; Trapezius muscle spasm; Bilateral hand pain; Breast cancer screening declinedStart: 09-11-2024 End: 23-52-8551Mtfdxu flowsheetCarmela Rossz MECHANICAL ENGINEERING DRAFTSPERSON Work Phone: NOBF CWM FMStart: 09-11-2024 End: 93-14-0756Wfhwzs flowsheetLisa Aichholz MECHANICAL ENGINEERING DRAFTSPERSON Work Phone: noms CWM FMStart: 09-11-2024 End: 54-44-7749ogjszccycbBLZK AICHHOLZNot AvailableStart: 09-07-2024 End: 28-89-0215Foorezvdp Result EncounterLisa Aichholz MECHANICAL ENGINEERING DRAFTSPERSON Work Phone: noms External Department UnsolicitedStart: 09-07-2024 End: 35-03-6007Khnpzxqhy Result EncounterLisa Aichholz MECHANICAL ENGINEERING DRAFTSPERSON Work Phone: noms External Department UnsolicitedStart: 08-20-2024 End: 35-92-0697GytoiiUwlb Aichholz MECHANICAL ENGINEERING DRAFTSPERSON Work Phone: noms CWM FMComment on above:Essential hypertension (CMS/HCC); Primary hypertension (CMS/HCC); Coronary artery disease involving [place] coronary artery of [place] heart without angina pectoris (CMS/HCC); Hypothyroidism (acquired) (CMS/HCC)Start: 07-09-2024 End: 72-76-0850tyyrvdexhfXljbequ Vytautas Giedraitis MDFacility:[facility] Start: 06-04-2024 End: 49-26-9606pgvdullhuzZRRS [facility] Centertart: 04-09-2024 End: 77-20-8435Ykvykmy encounter procedureNicole Saira DO Work Phone: aNA SANDUSKYComment on above:Idiopathic peripheral neuropathyStart: 04-09-2024 End: 35-36-5039omcrffdrwoVNLJVI DANNERNot AvailableStart: 04-09-2024 End: 81-46-8382Nemekx flowsheetNicole Saira DO Work Phone: aNA SANDUSKYStart: 04-09-2024 End: 29-38-0369Vholkf flowsheetNicole Saira DO Work Phone: aNA SANDUSKYStart: 03-31-2024 End: 86-02-4747Rhtvqhxfc Result EncounterNicole Saira DO Work Phone: noms External Department UnsolicitedStart: 03-31-2024 End: 43-42-4059Bmslxjybp Result EncounterNicole Saira DO Work Phone: noms External Department UnsolicitedStart: 03-26-2024 End: 46-82-9913Qstxut consultation new/estab patient 60 minNicole Saira DO Work Phone: aNA BELLEVUEComment on above:Idiopathic peripheral neuropathy (Primary Dx); Numbness and tingling; Arthralgia, unspecified jointStart: 03-26-2024 End: 72-61-8057qktpxlypvcVNMMQI DANNERNot AvailableStart: 03-26-2024 End: 19-28-2525Qulvwc flowsheetNicole Saira DO Work Phone: aNA BELLEVUEStart: 03-26-2024 End: 96-90-9820Nfkfdn flowsheetNicole Saira DO Work Phone: ana BELLEVUEStart: 03-13-2024 End: 96-85-8913BqcyzdIfej Aichholz MECHANICAL ENGINEERING DRAFTSPERSON Work Phone: NOMS CWM FMComment on above:Essential hypertension (CMS/HCC)Start: 03-02-2024 End: 85-05-1088umknjbsajnCrph N BialaskiFacility:[facility]red Healthcaretart: 02-29-2024 End: 76-01-5561NyuisyZhxh Aichholz MECHANICAL ENGINEERING DRAFTSPERSON Work Phone: NOMS CWM FMComment on above:Coronary artery disease involving [place] coronary artery of [place] heart without angina pectoris (CM S/HCC)Start: 02-07-2024 End: 41-86-3957Scxnelwny encounterLisa Lester MECHANICAL ENGINEERING DRAFTSPERSON Work Phone: NOM[facility] CWM FMStart: 02-01-2024 End: 03-60-5868Ukbfzrm encounter procedureCarmela Lester Work Phone: [facility] Work Phone: Start: 02-01-2024 End: 39-83-7568bkpycmmqydHlbf J Aichholz Work Phone: [facility] Work Phone: Start: 01-16-2024 End: 46-83-0256Lmyhrvv encounter procedureLisa Aichholz Work Phone: [facility] Work Phone: start: 01-13-2024 End: 89-17-7579Iumatnd encounter procedureLisa Aichholz Work Phone: [facility] [place] Work Phone: Start: 01-13-2024 End: 44-97-8505jvfhnofpgbZuat J Aichholz Work Phone: [facility] Work Phone: Start: 12-26-2023 End: 29-96-3537bwnzncvvchPwao J Aichholz Work Phone: [facility] Work Phone: Start: 12-26-2023 End: 07-21-0789Xomfpru encounter procedureLisa Aichholz Work Phone: [facility] Work Phone: start: 12-12-2023 End: 13-06-2362cxjbkgezrwCmlnljd Vytautas Giedraitis MDFacility:[facility] Start: 12-01-2023 End: 48-67-0808xtghpaohilCfhs J Aichholz Work Phone: [facility] Work Phone: Start: 12-01-2023 End: 28-24-7767Zajvenl encounter procedureLisa Aichholz Work Phone: [facility] Work Phone: start: 11-24-2023 End: 59-42-4425ZbvstvQspi Osielhholz MECHANICAL ENGINEERING DRAFTSPERSON Work Phone: noms CWM FMComment on above:Coronary artery disease involving [place] coronary artery of [place] heart without angina pectoris (CM S/HCC)Start: 11-22-2023 End: 33-23-2246JsazujCgwr Aichholz MECHANICAL ENGINEERING DRAFTSPERSON Work Phone: noms CWM FMComment on above:Coronary artery disease involving [place] coronary artery of [place] heart without angina pectoris (CM S/HCC); Neuropathy; Essential hypertension (CMS/HCC); Hypothyroidism (acquired) (CMS/HCC); Primary hypertension (CMS/HCC); Trapezius muscle spasmStart: 11-21-2023 End: 50-90-7907amfblpxrxlKqvhysb Vytautas Giedraitis MDFacility:[facility] [place] Start: 10-31-2023 End: 72-47-4835tfyjlpetzmAlienvd Vytautas Giedraitis MDFacility:[facility] [place] Start: 10-27-2023 End: 05-46-6421vpycibdwynImae J Osielhinocencio Work Phone: [facility] Work Phone: Start: 10-27-2023 End: 51-04-7483Vupsokr encounter procedureLisa Aichholz Work Phone: [facility] Work Phone: start: 10-27-2023 End: 31-23-0767Hmvaufd encounter procedureLisa Aichholz Work Phone: [facility] Work Phone: Start: 10-27-2023 End: 67-69-5793dixvaquomiNles J Aichholz Work Phone: [facility] Work Phone: Start: 10-06-2023 End: 75-75-8995txboiqhpffEejwsbsldUK Healthcare Work Phone: Start: 10-06-2023 End: 56-43-8318Tbcnerv encounter procedureAd[facility]health [facility] Work Phone: start: 09-29-2023 End: 31-74-0262ctxyxqlrrlOZMTUOFYVRS HASSETTNot AvailableStart: 09-05-2023 End: 04-38-9377Eqnyrccun Result EncounterLisa Aichholz MECHANICAL ENGINEERING DRAFTSPERSON Work Phone: noms External Department UnsolicitedStart: 09-05-2023 End: 95-40-9477Uqzkrhghy Result EncounterLisa Aichholz MECHANICAL ENGINEERING DRAFTSPERSON Work Phone: noms External Department UnsolicitedStart: 06-08-2023 End: 82-61-4987gaeaumjrwrNXWOTwin City Hospitaltart: 05-27-2023 End: 75-76-6395Vrsboqqkc Result EncounterLisa Aichholz MECHANICAL ENGINEERING DRAFTSPERSON Work Phone: noms External Department UnsolicitedStart: 05-27-2023 End: 62-36-1147Msonxdpyd Result EncounterLisa Aichholz MECHANICAL ENGINEERING DRAFTSPERSON Work Phone: noms External Department UnsolicitedStart: 07-22-2022 End: 25-60-6838oqmetoxinkYBC CARMELA AICHHOLZFacility:H9Pnjvd: 07-05-2022 End: 57-87-1183irfajkkunyZKJ CARMELA AICHHOLZFacility:C6Lrtys: 05-10-2022 End: 35-64-8222kermomdvrrQUC CARMELA AICHHOLZFacility:K4Kkhro: 01-22-2022 End: 93-27-4965dlfnpizsytIZD CARMELA AICHHOLZFacility:H1 Procedures DateProcedureProcedure DetailPerforming ClinicianStart: 59-03-5059Zueyt hand 2 viewsLisa Aichholz MECHANICAL ENGINEERING DRAFTSPERSON Work Phone: Start: [id number] cancer screening declined Breast cancer screening declinedLisa Aichholz MECHANICAL ENGINEERING DRAFTSPERSON Work Phone: Start: 31-82-0804AEE CBC WITH AUTO DIFFLisa Aichholz MECHANICAL ENGINEERING DRAFTSPERSON Work Phone: Start: 04-09-2024 End: 31-72-1456Fpimze emg ea extremty w/paraspinl area completeNicole Saira DO Work Phone: Start: [id number] FOLIC ACIDNicole Saira DO Work Phone: Start: 75-15-2207GDM of cervical spine without contrastLisa Aichholz Work Phone: Start: 88-91-3128A-ray of cervical spineLisa Aichholz Work Phone: Start: 98-48-3044Ofa spinal canal cervical w/o contrast matrlLisa Aichmorenaz MECHANICAL ENGINEERING DRAFTSPERSON Work Phone: Start: 88-64-3795JI ECHO DOPPLER COMPLETELisa Aichholz MECHANICAL ENGINEERING DRAFTSPERSON Work Phone: Breast cancer screening declinedBreast cancer screening declinedLisa Trevon MECHANICAL ENGINEERING DRAFTSPERSON-C Work Phone: Plan of Treatment DateCare ActivityDetailAuthorStart: 91-95-7481Ofntalyve for malignant neoplasm of colonNOMS HealthcareStart: 12-12-2024 End: 07-36-9825Tjoydwl encounter dinitzpjf95/01/2025 2:00 PM EDT Office Visit [facility] [address] [place] [phone] Carmela Lester NP [address] [place] [phone] [facility] FMStart: 08-98-0526Sannaoblx vaccinationNOMS HealthcareStart: 09-11-2024 End: 29-14-6941Cmkbmrp encounter procedureNOMS CWM FMComment on above:ERICK (obstructive sleep apnea) (Primary Dx); Coronary artery disease involving [place] coronary artery of [place] heart without angina pectoris ; Primary hypertension ; Hypothyroidism (acquired) ; Cigarette nicotine dependence without complication; Mixed hyperlipidemiaStart: 09-11-2024 End: 96-81-8025VA Hand - bilateral 2 ViewsXR hand 1 or 2 views bilateral Imaging Routine Bilateral hand pain Expected: 09/11/2024 (Approximate), Expires: 09/11/2025[facility] Work Phone: Comment on above:Expected: 09/11/2024 (Approximate), Expires: 09/11/2025Start: 08-20-2024 End: 56-17-4763UNG W Auto Differential panel - BloodCBC and differential Lab Routine Coronary artery disease involving [place] coronary artery of nativeheart without angina pectoris (CMS/HCC) Expected: 08/20/2024 (Approximate), Expires: 08/20/2025[facility] Work Phone: Comment on above:Expected: 08/20/2024 (Approximate), Expires: 08/20/2025Start: 08-20-2024 End: 51-44-4603Hpkipmrkhmsrs metabolic 2000 panel - Serum or PlasmaComprehensive metabolic panel Lab Routine Essential hypertension (CMS/HCC) Coronary artery disease involving [place] coronary artery of [place] heart without angina pectoris (CMS/HCC) Expected: 08/20/2024 (Approximate), Expires: 08/20/2025[facility] HealthcareComment on above:Expected: 08/20/2024 (Approximate), Expires: 08/20/2025Start: 08-20-2024 End: 31-45-6129Bzdzc 1996 panel - Serum or PlasmaLipid panel Lab Routine Coronary artery disease involving [place] coronary artery of [place] heart without angina pectoris (CMS/HCC) Expected: 08/20/2024 (Approximate), Expires: 08/20/2025[facility] HealthcareComment on above:Expected: 08/20/2024 (Approximate), Expires: 08/20/2025Start: 08-20-2024 End: 37-80-5762Tsyiaqbsmngf/Creatinine panel in random UrineMicroalbumin / creatinine, urine ratio Lab Routine Essential hypertension (CMS/HCC) Expected: 08/20/2024 (Approximate), Expires: 08/20/2025[facility] HealthcareComment on above: Expected: 08/20/2024 (Approximate), Expires: 08/20/2025Start: 08-20-2024 End: 86-22-2214Urfawmbyefk [Units/volume] in Serum or PlasmaTSH Lab Routine Hypothyroidism (acquired) [place] Expected: 08/20/2024 (Approximate), Expires: 08/20/2025[facility] HealthcareComment on above:Expected: 08/20/2024 (Approximate), Expires: 08/20/2025Start: 08-20-2024 End: 54-01-7730Ksitanvti (T4) free [Mass/volume] in Serum or PlasmaT4, free Lab Routine Hypothyroidism (acquired) ([facility]) Expected: 08/20/2024 (Approximate), Expires: 08/20/2025[facility] HealthcareComment on above:Expected: 08/20/2024 (Approximate), Expires: 08/20/2025Start: 08-20-2024 End: 31-56-7656Rktkjsxzlh complete panel - UrineUrinalysis with reflex microscopic (clean catch) Lab Routine Essential hypertension ([facility]) Expected: 08/20/2024 (Approximate), Expires: 08/20/2025[facility] HealthcareComment on above: Expected: 08/20/2024 (Approximate), Expires: 08/20/2025Start: 05-23-2024 End: 12-01-3787Ateuvck encounter igxqibmbf66/12/2025 1:15 PM EDT Office Visit [facility] [address] [place] [phone] Den Chávez DO [address] [place] [id number] GINA NAYELItart: 05-17-2024 End: 75-55-8831Cjatmrb encounter zehzpjilg17/06/2025 1:15 PM EST Office Visit GINA YVES [address] [place] [phone] Den Chávez DO [address] [place] [address] GINA TYLERtart: 04-09-2024 End: 61-28-5697Pgmcdhk encounter procedureGINA BURGOSYComment on above:Arrived Start: 03-26-2024 End: 78-30-5083Vrmtxtj encounter procedureNOMS SANCHEZ STATE ROUTEComment on above:ArrivedStart: 03-26-2024 End: 64-01-7986Lmtbwglto (Vitamin B12) [Mass/volume] in Serum or PlasmaVitamin B12 Lab Routine Idiopathic peripheral neuropathy Expected: 03/26/2024 (Approximate), Expires: 03/26/2025[facility] Work Phone: comment on above:Expected: 03/26/2024 (Approximate), Expires: 03/26/2025Start: 03-26-2024 End: 19-41-7315PCK 2 ExtremitiesEMG 2 Extremities Neurology Routine Idiopathic peripheral neuropathy Expected: 03/26/2024 (Approximate), Expires: 03/26/2025 [facility] HealthcareComment on above:Expected: 03/26/2024 (Approximate), Expires: 03/26/2025Start: 03-26-2024 End: 17-94-5757Nckljg [Mass/volume] in Serum or PlasmaFolate Lab Routine Idiopathic peripheral neuropathy Expected: 03/26/2024 (Approximate), Expires: 03/26/2025[facility] HealthcareComment on above:Expected: 03/26/2024 (Approximate), Expires: 03/26/2025Start: 03-26-2024 End: 86-83-8995Gpnnfks Ab [Titer] in Serum by ImmunofluorescenceANA Lab Routine Idiopathic peripheral neuropathy Expected: 03/26/2024 (Approximate), Expires: 03/26/2025[facility] HealthcareComment on above:Expected: 03/26/2024 (Approximate), Expires: 03/26/2025Start: 03-26-2024 End: 16-91-5127BOH 9-10 NervesNVC 9-10 Nerves Neurology Routine Idiopathic peripheral neuropathy Expected: 03/26/2024 (Approximate), Expires: 03/26/2025 [facility] HealthcareComment on above:Expected: 03/26/2024 (Approximate), Expires: 03/26/2025Start: 03-26-2024 End: 16-36-8064Ghgrixl electrophoresis, serumProtein electrophoresis, serum Lab Routine Idiopathic peripheral neuropathy Expected: 03/26/2024 (Approximate), Expires: 03/26/2025[facility] HealthcareComment on above:Expected: 03/26/2024 (Approximate), Expires: 03/26/2025Start: 03-26-2024 End: 69-27-4687Pakbuhgapk factor [Units/volume] in Serum or PlasmaRheumatoid factor Lab Routine Idiopathic peripheral neuropathy Expected: 03/26/2024 (Approximate), Expires: 03/26/2025[facility] HealthcareComment on above:Expected: 03/26/2024 (Approximate), Expires: 03/26/2025Start: 03-20-2024 End: 04-07-7348Avhptkq encounter qmbjoshyu32/07/2025 1:20 PM EST Office Visit [facility] [address] [place] [address] Carmela Lester, MECHANICAL ENGINEERING DRAFTSPERSON [address] [place] [address] [facility] FMStart: 78-92-6284Mfbfwtxft vaccinationInfluenza Vaccine (#1)[facility] HealthcareStart: 36-29-3270X-ray of cervical spineXR cerv spine AP/LAT/FLX/EXTKindred Healthcaretart: 11-80-8173PV Cervical spine 4 ViewsKindred Healthcaretart: 17-87-3608Vvjcugi referral [facility] Work Phone: Start: 77-74-3246Skaouyntu for malignant neoplasm of cervixHPV/CotestNOMS HealthcareStart: 64-27-3787Ygjcubpkx for malignant neoplasm of cervixPap SmearNOMS HealthcareStart: 39-07-9850Wjfkmzebv for malignant neoplasm of colonNOMS HealthcareElectromyographyOhiohealth Doctors HospitalMR Cervical spine WO [facility] HospitalPatient referralKindred Healthcare Work Phone: XR Cervical spine 4 [facility] Immunizations Immunization DateImmunizationNotesCare PbmsspuwTapladpy53-15-1255sspetjvqe, injectable, quadrivalent, preservative freeLisa Aichholz MECHANICAL ENGINEERING DRAFTSPERSON Work Phone: [facility] CenterSpmekibufi72-50-0175Uwxpndivmkja Conjugate PCV 20 Carmela Aichholz MECHANICAL ENGINEERING DRAFTSPERSON Work Phone: [facility] CenterDthmhsnmno27-69-9251nusvyorzr virus vaccine, unspecified formulationLisa Aichholz MECHANICAL ENGINEERING DRAFTSPERSON Work Phone: [facility] CenterYstgqgvjru77-05-6271sophcobum, injectable, quadrivalent, preservative freeLisa Aichholz MECHANICAL ENGINEERING DRAFTSPERSON Work Phone: [facility] CenterNymjpvmroh37-13-1887uldpmliro, injectable, quadrivalent, preservative freeLisa Aichholz MECHANICAL ENGINEERING DRAFTSPERSON Work Phone: [facility] CenterUrsuemkhbo92-34-2214tfodkfoiv, injectable, quadrivalent, preservative freeLisa Aichholz MECHANICAL ENGINEERING DRAFTSPERSON Work Phone: [facility] CenterAbdwosoejb52-00-1322vowlqerse, injectable, quadrivalent, preservative freeLisa Aichholz MECHANICAL ENGINEERING DRAFTSPERSON Work Phone: [facility] CenterZourvuiksz52-44-7699fuldoyxextpj polysaccharide vaccine, 23 valentLisa Aichholz MECHANICAL ENGINEERING DRAFTSPERSON Work Phone: [facility] CenterRxqikiadno98-65-3766zbttxiond, injectable, quadrivalent, preservative freeLisa Aichholz MECHANICAL ENGINEERING DRAFTSPERSON Work Phone: [facility] Payers DatePayer CategoryPayerPolicy [id number] Health InsuranceMEDICAL MUTUAL Member Subscriber Plan / Payer (Effective 2022- Present) Name: Diane Mendoza Relation to Subscriber: Spouse Name: JOSE MARIA MENDOZA Date of : 1960 Address: [address] [place] [address] Payer ID: Not on file Gr p ID: [id number] Type: Not on file Address: [address] [place] [id number] 1.2.840.526720.1.13.693.2.7.3.674[id number] 2.840.1.567575.3.57[id number] 2.840.1.190143.3.57[id number] 2.840.1.875593.3.57[id number] 2.840.1.833104.3.57[id number] 2.840.1.665374.3.57[id number] 2.840.1.621369.3.57[id number] 2.840.1.471801.3.57[id number] 2.840.1.433412.3.57[id number] 2.840.1.389292.3.57[id number] 2.840.1.364527.3.57[id number] 2.16.840.1.973219.3.57[id number] 2..840.1.638458.3.57[id number] 2.16.840.1.6[id number] 2.840.1.477608.3.579.2.531 [id number] 2.16.840.1.1[id number] 2.840.1.425040.3.579.2.531 Social History DateTypeDetailFacilityTobacco smoking status NHISUnknown if ever smokedKindred Healthcare Work Phone: Start: 20-29-5366Zzi Assigned At BirthFemalHenry County HospitalTobacco smoking status NHISUnknown if ever smoked [facility] Work Phone: Start: 59-54-4391TruYunudiw sex unknown (finding) Kind[facility] Healthcaretart: 53-36-0570Aibjmsm smoking status NHIS Smokes tobacco dailyNOMS HealthcareHistory of tobacco useCigarette SmokerNOMS HealthcareStart: 02-07-2023 End: 63-00-1934Kaylqluxdq smoked current (pack per day) - Jnbhgkpe0KAPD HealthcareStart: 07-11-2023 End: 54-83-2122Mumwtozez beverage intakeLifetime non-drinker (finding)[facility] HealthcareStart: 05-10-2023 End: 28-17-7794Gmnekjr use panelNOMS HealthcareStart: 01-65-6469Kjb assigned at birthNot on fileNOMS HealthcareStart: 73-00-5714Mifvcdp smoking status NHIS Ex-smokerNOMS HealthcareHistory of tobacco useCurrent smokerN[facility]S Healthcare Start: 13-71-0177Tyfirbs use and exposureSmokeless tobacco non-userNOMS HealthcareSexFemale (finding)Kindred Healthcaretart: 05-26-2022 [facility]FeW[facility] Functional Status JpsmRoarmyjfrjKfutcdNmcqcrcs59-23-0382Hpnycrc Health Questionnaire 2 item (PHQ- 2) [Reported][facility] Clinical Notes 06-08-2023 to 09-11-2024 Note Date & ZscwFezrEwmspkrj84-08-2783 History of Present illness Narrative* Carmela Lester [...] no compliance problems. Hypertensive end-organ damage includes CAD/VA. There is no history of PVD. SUBJECTIVE: [...] of the risks of continued smoking: stroke, VA, all forms of cancer, lung disease, and [...] yearly and prn dose changes * Carmela Lseter NP - 09/11/2024 7:24 AM EDTAssociated Problem(s): Cigarette nicotine dependence without complication The patient has been advised of the risks of continued smoking: stroke, VA, all forms of cancer, lung disease, and [...] shirin, and imdur , verapamil * Carmela Lesetr NP - 09/11/2024 7:21 AM EDTAssociated Problem(s): [...] that manages your ERICK: documented in this [facility]07-01-2025 Instructions* Patient Instructions* Carmela Lester NP - 09/11/2024 2:20 PM EDT Check xrays of the hands Add baby aspirin 81mg daily documented in this [facility]06-09-2025 Telephone encounter Note* Telephone Encounter - Carmela [...] order please getting this completed CICI [place] [facility] CenterEfnsjlvxsv16-37-0843 Miscellaneous Notes* Telephone Encounter - Carmela Lester [...] this completed CICI [place] documented in this encounterResearch Medical CenterYjqsonudzn11-68-3990 [facility] Chief Complaint: [...] management; add calc (more content not included)... [facility]01-27-20[facility] History of Present illness Narrative* Walker Nicole, ARRT - 04/09/2024 4:00 PM EST Images from the original note were not included. Reason for Appointment: EMG Patient: Diane Mendoza : 1970 EMG Computer: [id number] Referring Physician: Dr. Den Chávez EMG: BLE 4th grade teacher: Walker Nicole RT(R) Office Location: [place] Reason for EMG: c/o numbness/tingling in bilateral feet/lower legs, low back pain that radiates down bilateral legs L>R. Hx of surgery to left ankle. No hx of DM. Taking ASA. Comments: Procedure was explained to the patient who expressed understanding. Patient appeared to have tolerated the test well despite some discomfort due to the nature of the test. documented in this encounterResearch Medical CenterMumkhopclq45-02-1424 History of Present illness Narrative* Den Chávez DO - 03/26/2024 4:00 PM EST Images from the original note were not included. Chief Complaint Patient presents with Numbness Tingling Subjective Diane Mendoza, 54 y.o., female HPI Paresthesia of skin - [place] [facility] [place] well as [place], MRI brain [...] symptoms. She had EMG here and at [facility]. Borderline right CTS. She had the EMG 2020 BLE She is on the neurontin 900mb bid Past Medical History: Diagnosis Date Abnormal ankle brachial index (LYSSA) 05/10/2023 Asymptomatic microscopic hematuria 05/10/2023 Back pain, chronic 05/10/2023 Bilateral hand pain 05/10/2023 Bronchitis 02/07/2023 CAD (coronary artery disease) ([facility]) 05/10/2023 Closed traumatic minimally displaced fracture of proximal end of fibula with routine healing 05/10/2023 Fatigue GERD (gastroesophageal reflux disease) 05/10/2023 Gout 05/09/2023 History of irregular menstrual cycles Hyperlipidemia ([facility]) Joint pain Left ankle pain Loud snoring 05/10/2023 Lumbosacral radiculopathy at S1 05/10/2023 Menorrhagia 05/10/2023 Myocardial infarction ([facility]) 05/10/2023 Neuropathy 05/10/2023 Paresthesia of foot Peripheral artery disease ([facility]) 05/10/2023 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[facility]) 05/10/2023 Seasonal allergies 05/10/2023 Tobacco user 05/10/2023 [...] upper extremity in September most recently at [facility] that was not entirely convincing for any [...] to clinic: 3 weeks documented in this [facility]11-26-2024 Telephone encounter Note* Telephone Encounter - Carmela Lester NP - 02/07/2024 8:35 PM EST Please call and schedule a fu appt for pt [place] [facility] CenterIwwllklvte45-18-9779 Miscellaneous Notes* Telephone Encounter - Carmela Lester NP - 02/07/2024 8:35 PM EST Please call and schedule a fu appt for pt [place] documented in this [facility]09-19-2024 Evaluation note* Diagnosis Onset Date Resolution Status Admit Date Arm pain acuteSeptember 2023 12:52pmCervical radiculopathyacuteSept2023 12:52pmNeck painacuteSeptember 2023 12:52pmCervical radiculopathyacute December 26, 2023 9:58amUlnar neuropathy at elbowacuteNov2023 10:50am [facility] Work Phone: 1(906) 145-910503-27-2024 [facility] Chief Complaint: New [...] he is to underg (more content not included)...[facility] Evaluation noteNo assessment information availableKindred Healthcare Work Phone: Evaluation note* Diagnosis Onset Date Resolution Status Arm pain acuteCervical radiculopathyacuteUlnar neuropathy at elbowacuteArm painacuteNeck painacuteUlnar neuropathy at elbowacute [facility] Work Phone: Evaluation note* Diagnosis Onset Date Resolution Status Arm pain acuteCervical radiculopathyacuteUlnar neuropathy at elbowacuteArm painacuteNeck painacuteUlnar neuropathy at elbowacuteArm painacuteCervical radiculopathyacute Neck painacuteCervical radiculopathyacute [facility] Work Phone: Evaluation note* Diagnosis Onset Date Resolution Status Arm pain acuteNeck painacuteUlnar neuropathy at elbowacuteArm painacuteCervical radiculopathyacuteNeck painacuteCervical radiculopathyacute [facility] Work Phone: Evaluation note* Diagnosis Coronary artery disease involving [place] coronary artery of [place] heart without angina pectoris (CMS/HCC) documented in this encounter [facility] HealthcareEvaluation note* Diagnosis Colon cancer screening- Primary Special screening for malignant neoplasms, colon Atherosclerosis of [place] coronary artery without angina pectoris, unspecified whether [place] or transplanted heart (CMS/HCC) Essential hypertension (CMS/HCC) Unspecified essential hypertension Hypothyroidism (acquired) (CMS/HCC) Unspecified hypothyroidism Idiopathic gout, unspecified chronicity, unspecified site Bronchitis Bronchitis, not specified as acute or chronic Essential hypertension (CMS/HCC)- Primary Unspecified essential hypertension Coronary artery disease involving [place] coronary artery of [place] heart without angina pectoris (CMS/HCC) Trapezius muscle spasm Tobacco user Tobacco use disorder Essential hypertension (CMS/HCC)- Primary Unspecified essential hypertension Coronary artery disease involving [place] coronary artery of [place] heart without angina pectoris (CMS/HCC) Trapezius muscle spasm Tobacco user Tobacco use disorder Cervical neck pain with evidence of disc disease- Primary Other and unspecified disc disorder of cervical region Trapezius muscle spasm Tobacco user Tobacco use disorder Cervical stenosis of spinal canal- Primary Spinal stenosis in cervical region Cervical radiculopathy Brachial neuritis or radiculitis nos Coronary artery disease involving [place] coronary artery of [place] heart without angina pectoris (CMS/HCC) documented in this encounter [facility] HealthcareEvaluation note* Diagnosis Coronary artery disease involving [place] coronary artery of [place] heart without angina pectoris (CMS/HCC) Neuropathy Mononeuritis of unspecified site Essential hypertension (CMS/HCC) Unspecified essential hypertension Hypothyroidism (acquired) (CMS/HCC) Unspecified hypothyroidism Primary hypertension (CMS/HCC) Unspecified essential hypertension Trapezius muscle spasm documented in this encounter [facility] HealthcareEvaluation note* Diagnosis Colon cancer screening- Primary Special screening for malignant neoplasms, colon Atherosclerosis of [place] coronary artery without angina pectoris, unspecified whether [place] or transplanted heart (CMS/HCC) Essential hypertension (CMS/HCC) Unspecified essential hypertension Hypothyroidism (acquired) (CMS/HCC) Unspecified hypothyroidism Idiopathic gout, unspecified chronicity, unspecified site Bronchitis Bronchitis, not specified as acute or chronic Essential hypertension (CMS/HCC)- Primary Unspecified essential hypertension Coronary artery disease involving [place] coronary artery of [place] heart without angina pectoris (CMS/HCC) Trapezius muscle spasm Tobacco user Tobacco use disorder Essential hypertension (CMS/HCC)- Primary Unspecified essential hypertension Coronary artery disease involving [place] coronary artery of [place] heart without angina pectoris (CMS/HCC) Trapezius muscle [...] screening for malignant neoplasms, colon Atherosclerosis of [place] coronary artery without angina pectoris, unspecified whether [place] or transplanted heart (CMS/HCC) Essential hypertension (CMS/HCC) Unspecified essential hypertension Hypothyroidism (acquired) ([facility]) Unspecified hypothyroidism Idiopathic gout, unspecified chronicity, unspecified site Bronchitis Bronchitis, not specified as acute or chronic Essential hypertension (CMS/HCC)- Primary Unspecified essential hypertension Coronary artery disease involving [place] coronary artery of [place] heart without angina pectoris (CMS/HCC) Trapezius muscle spasm Tobacco user Tobacco use disorder Essential hypertension (CMS/HCC)- Primary Unspecified essential hypertension Coronary artery disease involving [place] coronary artery of [place] heart without angina pectoris (CMS/HCC) Trapezius muscle [...] screening for malignant neoplasms, colon Atherosclerosis of [place] coronary artery without angina pectoris, unspecified whether [place] or transplanted heart (CMS/HCC) Essential hypertension (CMS/HCC) Unspecified essential hypertension Hypothyroidism (acquired) ([facility]) Unspecified hypothyroidism Idiopathic gout, unspecified chronicity, unspecified site Bronchitis Bronchitis, not specified as acute or chronic Essential hypertension (CMS/HCC)- Primary Unspecified essential hypertension Coronary artery disease involving [place] coronary artery of [place] heart without angina pectoris (CMS/HCC) Trapezius muscle spasm Tobacco user Tobacco use disorder Essential hypertension (CMS/HCC)- Primary Unspecified essential hypertension Coronary artery disease involving [place] coronary artery of [place] heart without angina pectoris (CMS/HCC) Trapezius muscle [...] screening for malignant neoplasms, colon Atherosclerosis of [place] coronary artery without angina pectoris, unspecified whether [place] or transplanted heart (CMS/HCC) Essential hypertension (CMS/HCC) Unspecified essential hypertension Hypothyroidism (acquired) (CMS/HCC) Unspecified hypothyroidism Idiopathic gout, unspecified chronicity, unspecified site Bronchitis Bronchitis, not specified as acute or chronic Essential hypertension (CMS/HCC)- Primary Unspecified essential hypertension Coronary artery disease involving [place] coronary artery of [place] heart without angina pectoris (CMS/HCC) Trapezius muscle spasm Tobacco user Tobacco use disorder Essential hypertension (CMS/HCC)- Primary Unspecified essential hypertension Coronary artery disease involving [place] coronary artery of [place] heart without angina pectoris (CMS/HCC) Trapezius muscle [...] Unspecified essential hypertension Coronary artery disease involving [place] coronary artery of [place] heart without angina pectoris (CMS/HCC) Hypothyroidism (acquired) ([facility]) Unspecified hypothyroidism documented in this encounter [facility] HealthcareEvaluation note* Diagnosis Colon cancer screening- Primary Special screening for malignant neoplasms, colon Atherosclerosis of [place] coronary artery without angina pectoris, unspecified whether [place] or transplanted heart Essential hypertension Unspecified essential hypertension Hypothyroidism (acquired) Unspecified hypothyroidism Idiopathic gout, unspecified chronicity, unspecified site Bronchitis Bronchitis, not specified as acute or chronic Essential hypertension- Primary Unspecified essential hypertension Coronary artery disease involving [place] coronary artery of [place] heart without angina pectoris Trapezius muscle spasm Tobacco user Tobacco use disorder Essential hypertension- Primary Unspecified essential hypertension Coronary artery disease involving [place] coronary artery of [place] heart without angina pectoris Trapezius muscle spasm [...] Unspecified essential hypertension Coronary artery disease involving [place] coronary artery of [place] heart without angina pectoris Hypothyroidism (acquired) Unspecified hypothyroidism Cigarette nicotine dependence without complication Mixed hyperlipidemia Mixed hyperlipidemia Essential hypertension Unspecified essential hypertension Trapezius muscle spasm Bilateral hand pain Breast cancer screening declined documented [facility] Diagnosis Colon cancer screening- Primary Special screening for malignant neoplasms, colon Atherosclerosis of [place] coronary artery without angina pectoris, unspecified whether [place] or transplanted heart Essential hypertension Unspecified essential hypertension Hypothyroidism (acquired) Unspecified hypothyroidism Idiopathic gout, unspecified chronicity, unspecified site Bronchitis Bronchitis, not specified as acute or chronic Essential hypertension- Primary Unspecified essential hypertension Coronary artery disease involving [place] coronary artery of [place] heart without angina pectoris Trapezius muscle spasm Tobacco user Tobacco use disorder Essential hypertension- Primary Unspecified essential hypertension Coronary artery disease involving [place] coronary artery of [place] heart without angina pectoris Trapezius muscle spasm [...] Unspecified essential hypertension Coronary artery disease involving [place] coronary artery of [place] heart without angina pectoris Hypothyroidism (acquired) Unspecified hypothyroidism Cigarette nicotine dependence without complication Mixed hyperlipidemia Mixed hyperlipidemia Essential hypertension Unspecified essential hypertension Trapezius muscle spasm Bilateral hand pain Breast cancer screening declined Bilateral hand pain- Primary documented [facility]* Diagnosis Colon cancer screening- Primary Special screening for malignant neoplasms, colon Atherosclerosis of [place] coronary artery without angina pectoris, unspecified whether [place] or transplanted heart Essential hypertension Unspecified essential hypertension Hypothyroidism (acquired) Unspecified hypothyroidism Idiopathic gout, unspecified chronicity, unspecified site Bronchitis Bronchitis, not specified as acute or chronic Essential hypertension- Primary Unspecified essential hypertension Coronary artery disease involving [place] coronary artery of [place] heart without angina pectoris Trapezius muscle spasm Tobacco user Tobacco use disorder Essential hypertension- Primary Unspecified essential hypertension Coronary artery disease involving [place] coronary artery of [place] heart without angina pectoris Trapezius muscle spasm [...] Unspecified essential hypertension Coronary artery disease involving [place] coronary artery of [place] heart without angina pectoris Hypothyroidism (acquired) Unspecified [...] 2024 1:48pmHypothyroidism (acquired)acute December 12, 2024 1:48pm [facility] Work Phone: Hospital Discharge instructionsAmbulatory Orders* Referral to Pain Management Location: None Selected [facility] Work Phone: Reason for referral (narrative)No reason for referral information availableKindred Healthcare Work Phone: Summary Purpose Family History No [...] section and content) DATE CREATED AUTHOR 07/25/2022 [facility] DATE CREATED AUTHOR AUTHOR'S ORGANIZ ATION 03/06/2024 [facility] DATE CREATED AUTHOR AUTHOR'S ORGANIZ ATION 06/05/2024 [facility] DATE CREATED AUTHOR AUTHOR'S ORGANIZ ATION 07/22/2024 [facility] DATE CREATED AUTHOR AUTHOR'S ORGANIZ ATION 09/13/2024 [facility] EPIC Care Teams [...] Parviz Stewart MD [address] [place] [address] PCP - GeneralFamily Medicine05/10/23 Carmela Lester NP [address] [place] [address] Referring PhysicianNurse Practitioner10/04/22 Carmela Lester NP [address] [place] [address] [facility]05/10/23Team MemberRelationshipSpecialtyStart DateEnd Date Parviz Stewart MD [address] [place] [address] [facility]05/10/23 Carmela Lester NP [address] [place] [address] Referring PhysicianNurse Practitioner10/04/22 Carmela Lester NP [address] [place] [address] [facility]05/10/23Team MemberRelationshipSpecialtyStart DateEnd Date Parviz Stewart MD [address] [place] [address] PCP - [facility]05/10/23 Carmela Lester NP [address] [place] [address] Referring PhysicianNurse Practitioner10/04/22 Carmela Lester NP [address] [place] [address] [facility]05/10/23Team MemberRelationshipSpecialtyStart DateEnd Date Parviz Stewart MD [address] [place] [address] [facility] - [facility]05/10/23 Carmela Lester NP [address] [place] [address] Referring PhysicianNurse Practitioner10/04/22 Carmela Lester NP [address] [place] [address] [facility]05/10/23Team MemberRelationshipSpecialtyStart DateEnd Date Parviz Stewart MD [address] [place] [address] PCP - [facility]05/10/23 Carmela Lester NP [address] [place] [address] Referring PhysicianNurse Practitioner10/04/22 Carmela Lester NP [address] [place] [address] [facility]05/10/23Team MemberRelationshipSpecialtyStart DateEnd Date Parviz Stewart MD [address] [place] [address] [facility] - [facility]05/10/23 Carmela Lester NP [address] [place] [address] Referring PhysicianNurse Practitioner10/04/22 Carmela Lester NP [address] [place] [address] Nurse PractitionerFamily Medicine05/10/23Team MemberRelationshipSpecialtyStart DateEnd Date Parviz Stewart MD [address] [place] [address] PCP - GeneralFamily Medicine05/10/23 Carmela Lester, EMMANUEL [address] [place] [address] Referring PhysicianNurse Practitioner10/04/22 Carmela Lester NP [address] [place] [address] Nurse PractitionerFamily Medicine05/10/23 Den Chávez DO [address] [place] [address] Referring PhysicianNeurology1 Jessica Venegas NP [address] [place], [place] Nurse PractitionerNeurology1Team MemberRelationshipSpecialtyStart DateEnd Date Parviz Stewart MD [address] [place] [address] PCP - GeneralFamily Medicine05/10/23 Carmela Lester NP [address] [place] [address] Referring PhysicianNurse Practitioner10/04/22 Carmela Lester, EMMANUEL [address] [place] [address] Nurse PractitionerFamily Medicine05/10/23 Den Chávez DO [address] [place] [address] Referring PhysicianNeurolog03/27/24 Jessica Venegas NP [address] [place], [place] Nurse PractitionerNeurology1Team MemberRelationshipSpecialtyStart DateEnd Date Parviz Stewart MD [address] [place] [address] PCP - GeneralFamily Medicine05/10/23 Carmela Lester NP [address] [place] [address] Referring PhysicianNurse Practitioner10/04/22 Carmela Lester NP [address] [place] [address] Nurse PractitionerFamily Medicine05/10/23 Den Chávez DO [address] [place] [address] Referring PhysicianNeurolog03/27/24 Jessica Venegas NP [address] [place] [address] Nurse PractitionerNeurolog03/27/24Team MemberRelationshipSpecialtyStart DateEnd Date Parviz Stewart MD [address] [place] [address] PCP - GeneralFamily Medicine05/10/23 Carmela Lester NP [address] [place] [address] Referring PhysicianNurse Practitioner10/04/22 Carmela Lester NP [address] [place] [address] Nurse PractitionerFamily Medicine05/10/23 Den Chávez DO [address] [place] [address] Referring PhysicianNeurolog03/27/24 Jessica Venegas NP [address] [place] [address] Nurse PractitionerNeurology1Team MemberRelationshipSpecialtyStart DateEnd Date Parviz Stewart MD [address] [place] [address] [facility] - [facility]05/10/23 Carmela Lester NP [address] [place] [address] Referring PhysicianNurse Practitioner10/04/22 Carmela Lester NP [address] [place] [address] Nurse PractitionerFawaly Medicine05/10/23 Den Chávez DO [address] [place] [address] Referring PhysicianNeurolog03/27/24 Jessica Venegas NP [address] [place] [address] Nurse PractitionerNeurology1Team MemberRelationshipSpecialtyStart DateEnd Date Parviz Stewart MD [address] [place] [address] PCP - [facility]05/10/23 Carmela Lester NP [address] [place] [address] Referring PhysicianNMid [facility]10/04/22 Carmela Lester NP [address] [place] [address] [facility]05/10/23 Den Chávez DO [address] [place] [address] Referring PhysicianNeurolog03/27/24 Jessica Venegas NP [address] [place] [address] Nurse PractitionerNeurolog03/27/24Team MemberRelationshipSpecialtyStart DateEnd Date Parviz Stewart MD [address] [place] [address] PCP - [facility]05/10/23 Carmela Lester NP [address] [place] [address] Referring PhysicianNurse Practitioner10/04/22 Carmela Lester NP [address] [place] [address] Nurse PractitionerFamily Medicine05/10/23 Den Chávez DO [address] [place] [address] Referring PhysicianNeurolog03/27/24 Jessica Venegas NP [address] [place] [address] Nurse PractitionerNeurolog03/27/24Team MemberRelationshipSpecialtyStart DateEnd Date Parviz Stewart MD [address] [place] [address] [facility] - [facility]05/10/23 Carmela Lester NP [address] [place] [address] Referring PhysicianNurse Practitioner10/04/22 Carmela Lester NP [address] [place] [address] Nurse PractitionerFamily Medicine05/10/23 Den Chávez DO [address] [place] [address] Referring PhysicianNeurolog03/27/24 Jessica Venegas NP [address] [place] [address] Nurse PractitionerNeurologTeam MemberRelationshipSpecialtyStart DateEnd Date Parviz Stewart MD [address] [place] [address] PCP - [facility] Medicine05/10/23 Carmela Lester NP [address] [place] [address] Referring PhysicianNurse Practitioner10/04/22 Carmela Lester NP [address] [place] [address] Nurse Pract[facility]05/10/23 Den Chávez DO [address] [place] [address] Referring PhysicianNeurolog03/27/24 Jessica Venegas NP [address] [place] [address] Nurse PractitionerNeurolog03/27/24 Team Status: Active Member Role Status Dates Carmela Lester NP-C Primary Care Provider Active Team Status: Inactive Member Role Status Dates Carmela Lester NP-C Primary Care Provider Active Start: December 12, 2024 End: December 12, 2024Carmela Lester NP-CAttending ProviderActiveStart: December 12, 2024 End: December 12, 2024Team MemberRelationshipSpecialtyStart DateEnd Date Parviz Stewart MD PCP - [facility]05/10/23 Carmela Lester NP Referring PhysicianNurse Practitioner10/04/22 Carmela Lester NP Nurse PractitionerFawaly Medicine05/10/23 Den Chávez DO [address] [place] [address] Referring PhysicianNeurolog03/27/24 Jessica Venegas NP [address] [place] [address] Nurse PractitionerNeurolog03/27/24Team MemberRelationshipSpecialtyStart DateEnd Date Parviz Stewart MD [facility]05/10/23 Carmela Lester NP Referring PhysicianNurse Practitioner10/04/22 Carmela Lester NP [facility]05/10/23 Den Chávez DO [address] [place] [address] Referring PhysicianNeurolog03/27/24 Jessica Venegas NP [address] [place] [address] Nurse PractitionerNeurolog03/27/24 Goals (unrecognized section and content) [...] of skin Procedures [place] OFFICE/OUTPATIENT [facility] Milton Appiah MD Phone: tel: fax: Addy Lynn MD [address] [place] [address] Phone: tel: fax: Referral IDStatusReasonStart DateExpiration DateVisits RequestedVisits [id number] Consult and Treat /[id number] FOR RECORDS PERTAINING TO PATIENTS WHO ARE [...] BE BASED ON THE PRIMARY CLINICAL RECORDS. [employer] provides no warranty or guarantee of the accuracy or completeness of information in this document.
[2025-02-23 10:21] LABS: Hematocrit 35.9 % (36.0-48.0); Hemoglobin 12.7 g/dL (12.0-16.0); Immature Granulocytes Abs Auto 0.03 10^3/uL (0.00-0.03); Immature Granulocytes Pct Auto 0.3 % (0.0-0.5); Lymphocytes Absolute Auto 2.1 10^3/uL (1.2-3.8); Mean Corpuscular HGB Conc 35.4 g/dL (29.9-35.2); Mean Corpuscular Hemoglobin 33.6 pg (26.7-34.0); Mean Corpuscular Volume 95.0 fL (81.0-99.0); Platelet Count 231 10^3/uL (150-450); Red Blood Count 3.78 10^6/uL (4.20-5.40); White Blood Count 10.1 10^3/uL (4.0-11.0)
[2025-02-23 10:41] LABS: Alanine Aminotransferase 29 U/L (14-59); Albumin Globulin Ratio 1.1; Albumin Level 3.7 g/dL (3.4-5.0); Alkaline Phosphatase 82 U/L (46-116); Anion Gap 15.3; Aspartate Amino Transferase 29 U/L (15-37); Blood Urea Nitrogen 22.0 mg/dL (7.0-18.0); Calcium 8.8 mg/dL (8.5-10.1); Carbon Dioxide 25.1 mmol/L (21.0-32.0); Chloride 96 mmol/L (98-107); Estimated GFR (African America 51 (>=60 mL/min/1.73m^2); Estimated GFR (Non-African Ame 42 (>=60 mL/min/1.73m^2); Globulin 3.3 g/dL; Glucose 104 mg/dL (74-106); Potassium 4.4 mmol/L (3.5-5.1); Sodium 132 mmol/L (136-145); Total Protein 7.0 g/dL (6.4-8.2)
== END 2025-02-23 10:02 | disposition home or self-care (01) ==
LOC: LAB 10:02
PROVIDERS: PCP Nurse Practitioner; Visit Provider Internal Medicine Interventional Cardiology
DX: I25.10 Atherosclerotic heart disease of native coronary artery without angina pectoris (principal)
CPT/HCPCS: 36415; 80053; 85025